=== PATIENT | male | born 1945 | race Caucasian/White ===

== ENCOUNTER → 2017-10-09 07:03 | Outpatient (CLI) | payer MEDICARE, OTHER, SELFPAY ==
[2017-10-09 07:52] LABS: AST(SGOT) 33 U/L (15-37); Alanine Aminotransfer ALT/SGPT 31 U/L (16-61); Albumin, Serum 3.6 g/dL (3.2-5.0); Alkaline Phosphatase 87 U/L (45-117); Bilirubin, Direct 0.19 mg/dL (0.00-0.30); Cholesterol 111 mg/dL (200); Globulin 3.6 g/dL (2.2-4.2); High Density Lipoprotein 56 mg/dL; Protein, Total 7.2 g/dL (6.4-8.2); Triglycerides 58 mg/dL; Very Low Density Lipoprotein 12 mg/dL (5-40)
== END ==
PROVIDERS: Nurse Practitioner Family; Family Provider Internal Medicine; PCP Internal Medicine; Visit Provider Internal Medicine Cardiovascular Disease
DX: E78.5 Hyperlipidemia, unspecified (principal); Z79.899 Other long term (current) drug therapy
CPT/HCPCS: 36415; 80061; 80076

== ENCOUNTER → 2017-10-12 10:50 | Outpatient (CLI) | payer MEDICARE, OTHER, SELFPAY ==
[2017-10-12 10:55] LABS: Bacteria 0 SEEN /hpf (None Seen); Mucous, Urine 0 SEEN /hpf (<or=2+); Red Blood Cells-Urine 0 SEEN /hpf (0-5); Squamous Epithelial Cells - UA 0 SEEN /hpf (0-5)
[2017-10-12 12:57] LABS: Absolute Lymphocyte Count 1.12 X10^3/ul (0.83-4.51); Absolute Neutrophil Count 2.7 X10^3/uL (2.0-7.7); Basophil# 0.02 X10^3/uL; Basophil% 0.4 % (0-1); Eosinophil# 0.12 X10^3/uL; Eosinophils% 2.7 % (0-5); Hematocrit 41.4 % (40-54); Hemoglobin 13.8 g/dl (13.0-16.5); Lymphocyte # 1.12 X10^3/ul (4.0); Lymphocyte % 25.1 % (19-41); Mean Corp Hgb Conc 33.3 g/gl (32-36); Mean Corpuscular Hgb 32.4 pg (27.0-32.0); Mean Corpuscular Volume 97.2 fL (80-94); Mean Platelet Vol. 11.2 fl (6.2-12.0); Monocyte# 0.51 X10^3/uL; Monocyte% 11.4 % (0-10); Neutrophil # 2.69 X10^3/uL (2.7-7.7); Neutrophil % 60.4 % (47-70); Platelet Count 183 K/mm3 (150-450); RBC Distribution Width CV 13.2 % (11.6-14.6); RBC Distribution Width SD 46.4 fl (35.1-43.9); Red Blood Count 4.26 M/mm3 (4.6-6.2); White Blood Count 4.5 K/mm3 (4.4-11.0)
[2017-10-12 13:00] LABS: Anion Gap 7 (5-15); BUN 23 mg/dL (7-18); BUN/Creat Ratio 20.5 RATIO (10-20); Calcium,Total 8.6 mg/dL (8.5-10.1); Chloride 106 mmol/L (98-107); Creatinine, Serum 1.12 mg/dL (0.70-1.30); EST Glomerular Filtration Rate 68 mL/min (>60); Est Glom Filt Rate - Afr Amer 83 mL/min (>60); Glucose 88 mg/dL (74-106); Magnesium 2.2 mg/dL (1.6-2.6); Sodium Level 141 mmol/L (136-145); T4 Free Direct 0.77 ng/dL (0.76-1.46)
[2017-10-12 13:02] LABS: POSITIVE COUNT NO; POSITIVE DIFFERENTIAL NO; POSITIVE MORPHOLOGY NO
[2017-10-12 14:36] LABS: Color, Urine Yellow (Yellow); Glucose, Dipstick Normal (Normal); Ketone-Dipstick Negative (Negative); Leukocyte Esterase-Dipstick 25 /ul (Negative); Nitrite-Dipstick Negative (Negative); Occult Blood-Urine Negative /ul (Negative); Protein-Dipstick Negative (Negative); Urine Bilirubin Dipstick Negative (Negative); Urine Clarity Clear (Clear); Urine Urobilinogen Normal (Normal)
[2017-10-12 15:00] LABS: White Blood Cells 0-5 SEEN /hpf (0-5)
[2017-10-12 18:09] LABS: Vitamin B12 977 pg/mL (211-911)
[2017-10-16 10:22] LABS: Anti-Thyroglobulin AB < 1.0 IU/mL (0.0-0.9); Thyroglobulin, Serum Qt. 11.5 ng/mL (1.4-29.2); Thyroid Peroxidase AB 11 IU/mL (0-34)
== END ==
PROVIDERS: Family Provider Family Medicine; PCP Family Medicine; Visit Provider Family Medicine
DX: D75.89 Other specified diseases of blood and blood-forming organs (principal); I25.10 Atherosclerotic heart disease of native coronary artery without angina pectoris; E03.9 Hypothyroidism, unspecified; I10 Essential (primary) hypertension
CPT/HCPCS: 36415; 80048; 81001; 82607; 82746; 83735; 84432; 84439; 84443; 85025; 86376; 86800

== ENCOUNTER → 2017-10-18 12:53 | Outpatient (CLI) | payer MEDICARE, OTHER, SELFPAY ==
--- NOTE | 2017-10-18 12:56 | US_ITS ---
STUDY: ULTRASOUND - URINARY BLADDER REASON FOR EXAM: Male, 72 years old. Urinary retention TECHNIQUE: Ultrasound evaluation of the urinary bladder was performed with real-time and static marrero-scale imaging. COMPARISON: None. FINDINGS: There is no right UVJ calculus. There is a visualized right ureteral jet. There is no left UVJ calculus. There is a non-visualization of a left ureteral jet. The distended volume of the urinary bladder is 194 ml. The empty volume of the urinary bladder is 86 ml. The bladder wall is within normal limits. The bladder wall measures 3 mm. There is no demonstrated bladder wall mass lesion. There are no demonstrated bladder calculi. US/Post Void Residual Bladder IMPRESSION: Post void residue in the right bladder measures 86 ml. Electronically Signed: Rossi Rizzo MD at 14:30 EDT Tel , Service support ,
--- NOTE | 2017-10-18 12:56 | US_ITS ---
STUDY: THYROID ULTRASOUND REASON FOR EXAM: Male, 72 years old. Thyroid nodules TECHNIQUE: Ultrasound evaluation of the thyroid was performed with real-time and static marrero-scale imaging. COMPARISON: None. FINDINGS: RIGHT LOBE: The right lobe of the thyroid gland measures 4.1 x 1.6 x 1.5 cm. There is a homogeneous echotexture. There are 3 nodules measuring respectively: Nodule #1 measures 1 x 0.8 x 2.8 cm. ACR T-IRADS category 2, not suspicious for malignancy. Nodule #2 measures 0.4 x 0.5 and 0.5 cm. ACR T-IRADS category 1 benign. Nodule #3 measures 0.4 x 0.6 x 0.5 cm. Taller than wide nodule, ACR T-IRADS category 4 , moderately suspicious for malignancy. LEFT LOBE: The left lobe of the thyroid gland measures 3 x 1 x 0.8 cm. There is a homogeneous echotexture. 4 nodules are seen in the left thyroid lobe measuring respectively: Nodule #1 measures 3 x 3 x 3 mm. ACR T-IRADS category 3 , mildly suspicious for malignancy. Nodule #2 measures 3 x 4 x 4 mm. ACR T-IRADS category 3 , mildly suspicious for malignancy. Nodular #3 measures 4 x 3 x 3 mm. ACR T-IRADS category 3 , mildly suspicious for malignancy. Nodule #4 measures 5 x 5 x 3 mm. ACR T-IRADS category 3 , mildly suspicious for malignancy. Nodule #5 measures 2 x 3 x 2 mm. ACR T-IRADS category 3 , mildly suspicious for malignancy. ISTHMUS: The isthmus measures . The regional lymph nodes are normal. US/Thyroid IMPRESSION: Left thyroid lobe Nodule #3 measures 0.4 x 0.6 x 0.5 cm. Taller than wide nodule, ACR T-IRADS category 4 , moderately suspicious for malignancy. Electronically Signed: Rossi Rizzo MD at 13:54 EDT Tel , Service support ,
== END ==
PROVIDERS: Family Provider Family Medicine; PCP Family Medicine; Visit Provider Family Medicine
DX: E04.2 Nontoxic multinodular goiter (principal); R33.9 Retention of urine, unspecified
CPT/HCPCS: 51798; 76536

== ENCOUNTER → 2017-11-15 11:12 | Outpatient (CLI) | payer MEDICARE, OTHER, SELFPAY ==
--- NOTE | 2017-11-15 | FLU_PTH ---
PATIENT: MESSI VILLA LOC: [facility] U#:[id number] AGE/SX: 80/M ROOM: RE11/15/[address]: Dr. Trino Mclean MD : 1945 BED: DIS: SPEC #: [id number] RECD: 11/15/17 13:21 STATUS: ALBERTO SARAH #: [id number] EMPERATRIZ: 11/15/17 00:[address]: Trino Mclean DEPT: CYTOLOGY RECD BY: Pratik Chin ENTERED: 11/15/17 13:22 SP TYPE: Fluid OTHR DR: Dr. Rigoberto Elise MD Tissues: A - Thyroid gland, NOS B - Thyroid gland, NOS Procedures: Special Stain Group II Surgery Specimen Level IV Cytospin Fluid HEADER OPERATION: Right thyroid FNA PRE-OP DIAGNOSIS: Right thyroid nodule TISSUE SUBMITTED: A ? Right thyroid fluid for cytology, B ? Right thyroid slides ? mid (8 slides) DIAGNOSIS CYTOLOGY A. Fine needle aspiration, right thyroid nodule (cytospin and cell block): Negative for malignant cells. B. Fine needle aspiration, right thyroid nodule (smears): Adequate for evaluation. Consistent with benign follicular nodule. AM:mariia 11/16/17 COMMENT A. The specimen contains rare follicular cells and macrophages. CYTOLOGY STUDY Slides are reviewed. CYTOLOGY GROSS A - Received is <0.5 ml of yellow cloudy fluid labeled with the patient's name and and designated per the requisition as right thyroid. Submitted for cytology preparation including cell block. B - Received are eight smears labeled with the patient's name and designated per the requisition as right thyroid mid. Submitted for staining. 11/15/17 TC:5 CPT: 95433, 27047, 41667
== END ==
PROVIDERS: Family Provider Family Medicine; PCP Family Medicine; Visit Provider Surgery
DX: E04.1 Nontoxic single thyroid nodule (principal)
CPT/HCPCS: 88108; 88305; 88313

== ENCOUNTER → 2018-02-27 07:29 | Outpatient (CLI) | payer MEDICARE, OTHER, SELFPAY ==
[2018-02-27 08:10] LABS: Absolute Lymphocyte Count 1.38 X10^3/ul (0.83-4.51); Absolute Neutrophil Count 2.2 X10^3/uL (2.0-7.7); Basophil# 0.02 X10^3/uL; Basophil% 0.4 % (0-1); Eosinophil# 0.27 X10^3/uL; Eosinophils% 5.9 % (0-5); Hematocrit 39.7 % (40-54); Hemoglobin 13.8 g/dl (13.0-16.5); Lymphocyte # 1.38 X10^3/ul (4.0); Lymphocyte % 30.3 % (19-41); Mean Corp Hgb Conc 34.8 g/gl (32-36); Mean Platelet Vol. 9.9 fl (6.2-12.0); Monocyte# 0.65 X10^3/uL; Monocyte% 14.3 % (0-10); Neutrophil # 2.22 X10^3/uL (2.7-7.7); Neutrophil % 48.9 % (47-70); Platelet Count 232 K/mm3 (150-450); RBC Distribution Width SD 43.7 fl (35.1-43.9); Red Blood Count 4.18 M/mm3 (4.6-6.2); White Blood Count 4.6 K/mm3 (4.4-11.0)
[2018-02-27 08:15] LABS: POSITIVE COUNT NO; POSITIVE DIFFERENTIAL NO; POSITIVE MORPHOLOGY NO
[2018-02-27 08:43] LABS: ALB/GLOB Ratio 0.9 RATIO (0.9-2.4); AST(SGOT) 26 U/L (15-37); Alanine Aminotransfer ALT/SGPT 27 U/L (16-61); Albumin, Serum 3.5 g/dL (3.2-5.0); Alkaline Phosphatase 85 U/L (45-117); Anion Gap 4 (5-15); BUN 24 mg/dL (7-18); BUN/Creat Ratio 19.2 RATIO (10-20); Calcium,Total 8.6 mg/dL (8.5-10.1); Chloride 106 mmol/L (98-107); Cholesterol 117 mg/dL (200); Creatinine, Serum 1.25 mg/dL (0.70-1.30); EST Glomerular Filtration Rate 60 mL/min (>60); Est Glom Filt Rate - Afr Amer 73 mL/min (>60); Globulin 3.9 g/dL (2.2-4.2); Glucose 87 mg/dL (74-106); High Density Lipoprotein 53 mg/dL; Potassium 4.1 mmol/L (3.5-5.1); Protein, Total 7.4 g/dL (6.4-8.2); Sodium Level 140 mmol/L (136-145); T4 Free Direct 0.88 ng/dL (0.76-1.46); Thyroid Stim Hormone (TSH) 6.37 uIU/mL (0.358-3.74); Triglycerides 73 mg/dL; Very Low Density Lipoprotein 15 mg/dL (5-40)
== END ==
PROVIDERS: Family Provider Family Medicine; PCP Family Medicine; Visit Provider Family Medicine
DX: I10 Essential (primary) hypertension (principal); E78.5 Hyperlipidemia, unspecified; E04.2 Nontoxic multinodular goiter
CPT/HCPCS: 36415; 80053; 80061; 84439; 84443; 85025

== ENCOUNTER → 2018-04-03 12:14 | Outpatient (CLI) | payer MEDICARE, OTHER, SELFPAY ==
--- NOTE | 2018-04-03 13:00 | RAD_ITS ---
STUDY: SWALLOWING STUDY REASON FOR EXAM: Male, 72 years old. Aspiration. TECHNIQUE: The examination was performed with Speech Pathology in attendance. Under fluoroscopic observation, the patient ingested thin barium, thick barium, barium pudding, and barium coated cracker. FLUOROSCOPY TIME: 2:03 minutes/seconds. 1808 images were obtained. RADIOLOGIST INVOLVEMENT: Radiologist was present and providing direct supervision. COMPARISON: None. FINDINGS: The following was observed during swallowing of the various mixtures of barium: Thin Barium: There was no evidence of aspiration or laryngeal penetration. Barium Pudding: There was no evidence of aspiration or laryngeal penetration. Barium Coated Cracker: There was no evidence of aspiration or laryngeal penetration. RAD/Swallowing Function w/Video IMPRESSION: Normal tailored barium swallow study. No evidence of increased risk for aspiration. The swallow study findings were discussed with the patient by the speech pathologist at the conclusion of the examination. Please see speech pathology report for more information and recommendations. Electronically Signed: Eric Callahan MD at 14:48 EDT Tel [phone], Service support ,
--- NOTE | 2018-04-03 13:00 | SP.MBSS_ITS ---
PRIMARY / SECONDARY DIAGNOSIS: dysphagia (R13.10) REFERRING PHYSICIAN: Dr. Rigoberto Pham MD CURRENT DIET: regular textures, thin liquids DENTITION: WFL MENTAL STATUS: WNL RESPIRATORY STATUS: O2 via room air PREVIOUS MODIFIED BARIUM SWALLOW STUDY: none REASON FOR REFERRAL: Patient is a 72 year old male referred for a modified barium swallow (MBS) study to objectively assess the Patients oropharyngeal swallow function under fluoroscopy secondary to intermittent coughing, occurring occasionally with mixed textures and with saliva; unable to fully quantify, as the Patient reports that this does not necessarily happen on a daily or weekly basis, has not change in regards to intensity or frequency, rather has occasionally presented over the last 3-4 years. Patient underwent a ultrasound-guided final aspiration right thyroid nodule (x2) on 10/30/2017 and 11/15/2017, though reports no associated changes in swallow function associated with thyroid nodules or associated medical interventions. ADDITIONAL OBJECTIVE ASSESSMENT RESULTS: 10/19/2017 thyroid ultrasound revealed left thyroid lobe Nodule #3 measures 0.4 x 0.6 x 0.5 cm., taller than wide nodule, ACR T-IRADS category 4 , moderately suspicious for malignancy. 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 Dr. Callahan was the radiologist present for this evaluation. This study was recorded in the lateral view and images were sent to PACs for storage. The following consistencies were presented to this patient for analysis of oropharyngeal swallow function: thin liquids, pudding, and a regular textured, Mayi Doone cookie. Results of the MBS are as follows: PENETRATION / ASPIRATION SCALE (REDDING): 1 = does not enter airway 2 = enters airway/above vocal folds/ejected 3 = enters airway/above vocal folds/not ejected 4 = enters airway/contacts vocal folds/ejected 5 = enters airway/contacts vocal folds/not ejected 6 = enters airway/below vocal folds/ejected 7 = enters airway/below vocal folds/not ejected despite effort 8 = enters airway/below vocal folds/no effort VIDEOFLOROSCOPIC SCALE SCORE (REDDING): Grade I = aspiration of material that has penetrated into the laryngeal vestibule, intact cough reflex Grade II = aspiration < 10 % of the bolus, intact cough reflex Grade III = aspiration of < 10 % of the bolus, reduced cough reflex or aspiration of > 10 % of the bolus, intact cough reflex Grade IV = aspiration of > 10 % of the bolus, reduced cough reflex PENETRATION / ASPIRATION SCALE (SCORE) WITH VIDEOFLOROSCOPIC SCALE SCORE: Thin liquid - 5 mL tsp.: 1 Thin liquids via cup (single sip): 2 Thin liquids via cup (single sip): 2 Thin liquids via cup (single sip): 2 Thin liquids via cup (sequential swallows): 2 Thin liquids via straw (sequential swallows): 2 Thin liquids via straw (chin tuck): 1 Thin liquids via straw (chin tuck): 1 Thin liquids via straw (anterior lean): 2 Pudding via spoon: 1 Regular textured cookie: 1 Thin liquids via straw (chin tuck): 1 IMPRESSION: DIAGNOSIS: mild oropharyngeal dysphagia (R13.12) ORAL PHASE CHARACTERIZED BY: LABIAL SEAL: no labial escape TONGUE CONTROL DURING BOLUS MANIPULATION: cohesive bolus between tongue to palatal seal BOLUS PREPARATION / MASTICATION: timely and efficient chewing and mashing BOLUS TRANSPORT / LINGUAL MOTION: brisk tongue motion ORAL RESIDUE: trace residue lining oral structures PHARYNGEAL PHASE CHARACTERIZED BY: INITIATION OF PHARYNGEAL SWALLOW: bolus head at posterior laryngeal surface of epiglottis at first hyoid excursion SOFT PALATE ELEVATION: no bolus between soft palate and pharyngeal wall LARYNGEAL ELEVATION: complete superior movement of thyroid cartilage with complete approximation of arytenoids cartilage to epiglottic petiole ANTERIOR HYOID EXCURSION: partial anterior movement EPIGLOTTIC MOVEMENT: complete epiglottic inversion LARYNGEAL VESTIBULE CLOSURE AT HEIGHT OF SWALLOW: complete laryngeal vestibule closure with no air/contrast in laryngeal vestibule PHARYNGEAL STRIPPING WAVE: pharyngeal stripping wave present / complete PHARYNGOESOPHAGEAL SEGMENT OPENING: complete distension and complete duration with no obstruction of flow TONGUE BASE RETRACTION: trace column of contrast between tongue base and posterior pharyngeal wall PHARYNGEAL RESIDUE: trace residue within or on pharyngeal structures ESOPHAGEAL PHASE CHARACTERIZED BY: ESOPHAGEAL BOLUS CLEARANCE IN THE UPRIGHT POSITION: transient esophageal retention of a small collection of barium located at C-6 C-7; little to no clinical significance; clears with liquid chaser EFFECTS OF TREATMENT STRATEGIES ATTEMPTED: Chin tuck posture = effective Anterior lean = ineffective DIET TEXTURE RECOMMENDATIONS: Will recommend a regular textured, thin liquid diet. 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 Oropharyngeal swallow profile marked by mild impairment in pharyngeal swallow onset timing resulting in suboptimal bolus location upon swallow onset combining with a mild reduction in anterior hyoid excursion, with resulting consistent prandial transient penetration with complete ejection of thin liquids. All deficits ameliorated with execution of the chin tuck posture and bolus volume adjustments. Smaller cervical osteophyte located at the C-6 and C-7 levels, little to no effect on pharyngoesophageal motility, with brief and mild amounts of retention noted under fluoroscopy cleared with liquid wash. No aspiration appreciated throughout trials, unable to definitively rule out silent aspiration (not suspected). RECOMMENDATIONS: Patient able to comprehend and express recommended intake precautions detailed above with sufficient detail to suggest high likelihood of compliance. Provided brief overview of signs and symptoms of aspiration, with recommendations for the Patient to further discuss symptoms with PCP. No further skilled speech- language services warranted at this time targeting dysphagia. ADDITIONAL COMMENTS/RECOMMENDATIONS: Results and recommendations were discussed with the Patient immediately following MBS completion, with the Patient verbalizing understanding and agreement with all recommendations and education provided. IMAGE COUNT: [id number] G-CODES: SWALLOWING G8996 Current Status: CI SWALLOWING G8997 Goal Status: CI SWALLOWING G8998 Discharge Status: CI Vaibhav Cooper M.A., CCC-PILLAR WORKER [facility] Speech-Language Pathology Department [email or web address]
== END ==
PROVIDERS: Family Provider Family Medicine; PCP Family Medicine; Visit Provider Family Medicine
DX: T17.998A Other foreign object in respiratory tract, part unspecified causing other injury, initial encounter (principal); R33.9 Retention of urine, unspecified
CPT/HCPCS: 51798; 74230; 92611; G8996; G8997; G8998

== ENCOUNTER → 2018-08-28 07:18 | Outpatient (CLI) | payer MEDICARE, OTHER, SELFPAY ==
[2017-10-30 15:27] VITALS: BMI 26.9
[2018-08-28 08:11] LABS: Absolute Lymphocyte Count 1.42 X10^3/ul (0.83-4.51); Absolute Neutrophil Count 3.7 X10^3/uL (2.0-7.7); Basophil# 0.02 X10^3/uL; Basophil% 0.3 % (0-1); Eosinophil# 0.22 X10^3/uL; Eosinophils% 3.8 % (0-5); Hematocrit 41.7 % (40-54); Hemoglobin 13.9 g/dl (13.0-16.5); Lymphocyte # 1.42 X10^3/ul (4.0); Lymphocyte % 24.2 % (19-41); Mean Corp Hgb Conc 33.3 g/gl (32-36); Mean Corpuscular Hgb 32.3 pg (27.0-32.0); Mean Corpuscular Volume 96.8 fL (80-94); Mean Platelet Vol. 10.2 fl (6.2-12.0); Monocyte# 0.47 X10^3/uL; Neutrophil # 3.73 X10^3/uL (2.7-7.7); Neutrophil % 63.7 % (47-70); Platelet Count 203 K/mm3 (150-450); RBC Distribution Width SD 45.6 fl (35.1-43.9); Red Blood Count 4.31 M/mm3 (4.6-6.2); White Blood Count 5.9 K/mm3 (4.4-11.0)
[2018-08-28 08:13] LABS: POSITIVE COUNT NO; POSITIVE DIFFERENTIAL NO; POSITIVE MORPHOLOGY NO
[2018-08-28 08:32] LABS: ALB/GLOB Ratio 0.9 RATIO (0.9-2.4); AST(SGOT) 22 U/L (15-37); Alanine Aminotransfer ALT/SGPT 25 U/L (16-61); Albumin, Serum 3.5 g/dL (3.2-5.0); Alkaline Phosphatase 92 U/L (45-117); Anion Gap 4 (5-15); BUN 22 mg/dL (7-18); BUN/Creat Ratio 18.5 RATIO (10-20); Calcium,Total 8.3 mg/dL (8.5-10.1); Chloride 107 mmol/L (98-107); Cholesterol 124 mg/dL (200); Creatinine, Serum 1.19 mg/dL (0.70-1.30); EST Glomerular Filtration Rate 64 mL/min (>60); Est Glom Filt Rate - Afr Amer 77 mL/min (>60); Globulin 3.9 g/dL (2.2-4.2); Glucose 91 mg/dL (74-106); High Density Lipoprotein 52 mg/dL; Potassium 4.1 mmol/L (3.5-5.1); Protein, Total 7.4 g/dL (6.4-8.2); Sodium Level 140 mmol/L (136-145); Triglycerides 73 mg/dL; Very Low Density Lipoprotein 15 mg/dL (5-40)
== END ==
PROVIDERS: Family Provider Family Medicine; PCP Family Medicine; Referring Provider Family Medicine; Visit Provider Family Medicine
DX: I10 Essential (primary) hypertension (principal); E78.5 Hyperlipidemia, unspecified; E03.9 Hypothyroidism, unspecified
CPT/HCPCS: 36415; 80053; 80061; 84439; 84443; 85025

== ENCOUNTER → 2019-01-21 14:34 | Outpatient (CLI) | payer MEDICARE, OTHER, SELFPAY ==
[2019-01-21 07:17] VITALS: BMI 27.6
[2019-01-21 14:46] LABS: Bacteria 0 SEEN /hpf (None Seen); Mucous, Urine 0 SEEN /hpf (<or=2+); Squamous Epithelial Cells - UA 0 SEEN /hpf (0-5)
[2019-01-21 15:05] LABS: Color, Urine Yellow (Yellow); Glucose, Dipstick Normal (Normal); Ketone-Dipstick Negative (Negative); Leukocyte Esterase-Dipstick 100 /ul (Negative); Nitrite-Dipstick Negative (Negative); Occult Blood-Urine 10 /ul (Negative); Protein-Dipstick Negative (Negative); Specific Gravity, Urine 1.015 (1.002-1.030); Urine Bilirubin Dipstick Negative (Negative); Urine Clarity Clear (Clear); Urine Urobilinogen Normal (Normal)
[2019-01-21 15:14] LABS: Red Blood Cells-Urine 0-5 SEEN /hpf (0-5); White Blood Cells 10-25 SEEN /hpf (0-5)
== END ==
PROVIDERS: Family Provider Family Medicine; PCP Family Medicine; Referring Provider Physician Assistant Surgical; Visit Provider Physician Assistant Surgical
DX: R30.0 Dysuria (principal)
CPT/HCPCS: 81001; 87086; 87088

== ENCOUNTER → 2019-01-31 06:26 | Outpatient (CLI) | payer MEDICARE, OTHER, SELFPAY ==
[2019-01-21 07:17] VITALS: BMI 27.6
[2019-01-31 07:41] LABS: Absolute Lymphocyte Count 1.52 X10^3/ul (0.83-4.51); Absolute Neutrophil Count 3.3 X10^3/uL (2.0-7.7); Basophil# 0.03 X10^3/uL; Basophil% 0.5 % (0-1); Eosinophil# 0.36 X10^3/uL; Eosinophils% 6.3 % (0-5); Hematocrit 41.5 % (40-54); Hemoglobin 14.2 g/dl (13.0-16.5); Lymphocyte # 1.52 X10^3/ul (4.0); Lymphocyte % 26.7 % (19-41); Mean Corp Hgb Conc 34.2 g/gl (32-36); Mean Corpuscular Hgb 31.8 pg (27.0-32.0); Monocyte% 8.8 % (0-10); Neutrophil # 3.27 X10^3/uL (2.7-7.7); Neutrophil % 57.5 % (47-70); Platelet Count 290 K/mm3 (150-450); RBC Distribution Width CV 12.8 % (11.6-14.6); RBC Distribution Width SD 42.5 fl (35.1-43.9); Red Blood Count 4.46 M/mm3 (4.6-6.2); White Blood Count 5.7 K/mm3 (4.4-11.0)
[2019-01-31 07:44] LABS: POSITIVE COUNT NO; POSITIVE DIFFERENTIAL NO; POSITIVE MORPHOLOGY NO
[2019-01-31 08:12] LABS: ALB/GLOB Ratio 0.8 RATIO (0.9-2.4); AST(SGOT) 30 U/L (15-37); Alanine Aminotransfer ALT/SGPT 38 U/L (16-61); Albumin, Serum 3.2 g/dL (3.2-5.0); Alkaline Phosphatase 80 U/L (45-117); Anion Gap 8 (5-15); BUN 29 mg/dL (7-18); BUN/Creat Ratio 24.4 RATIO (10-20); Calcium,Total 8.7 mg/dL (8.5-10.1); Chloride 106 mmol/L (98-107); Cholesterol 115 mg/dL (200); Creatinine, Serum 1.19 mg/dL (0.70-1.30); EST Glomerular Filtration Rate 64 mL/min (>60); Est Glom Filt Rate - Afr Amer 77 mL/min (>60); Globulin 4.1 g/dL (2.2-4.2); Glucose 96 mg/dL (74-106); High Density Lipoprotein 47 mg/dL; Protein, Total 7.3 g/dL (6.4-8.2); Sodium Level 141 mmol/L (136-145); T4 Free Direct 1.02 ng/dL (0.76-1.46); Thyroid Stim Hormone (TSH) 3.76 uIU/mL (0.358-3.74); Triglycerides 70 mg/dL; Very Low Density Lipoprotein 14 mg/dL (5-40)
[2019-02-05 17:56] LABS: Anti-Thyroglobulin AB < 1.0 IU/mL (0.0-0.9); Thyroglobulin, Serum Qt. 7.1 ng/mL (1.4-29.2)
== END ==
PROVIDERS: Family Provider Family Medicine; PCP Family Medicine; Referring Provider Family Medicine; Visit Provider Family Medicine
DX: E03.9 Hypothyroidism, unspecified (principal); E78.5 Hyperlipidemia, unspecified; I10 Essential (primary) hypertension
CPT/HCPCS: 36415; 80053; 80061; 84432; 84439; 84443; 85025; 86800

== ENCOUNTER → 2019-04-26 09:38 | Outpatient (CLI) | payer MEDICARE, OTHER, SELFPAY ==
[2019-01-21 07:17] VITALS: BMI 27.6
--- NOTE | 2019-04-26 09:46 | RAD_ITS ---
STUDY: X-RAY CHEST REASON FOR EXAM: Male, 74 years old. Acute bronchitis. TECHNIQUE: PA and lateral views of the chest. COMPARISON: None. FINDINGS: The lungs are clear and expanded. There is no demonstrated pleural abnormality. Normal size heart. Normal mediastinum and kimani. Normal visualized pulmonary arteries. Normal visualized aortic arch and descending thoracic aorta. There are diffuse degenerative changes of the visualized thoracic spine. Normal visualized ribs, clavicles, and shoulders. There is no demonstrated abnormality of the visualized soft tissue structures of the upper abdomen. RAD/Chest PA and Lateral IMPRESSION: Degenerative changes, as described above. No demonstrated acute cardiopulmonary process. Electronically Signed: Andrea Forbes DO at 10:28 EDT Tel [phone], Service support ,
== END ==
PROVIDERS: Family Provider Family Medicine; PCP Family Medicine; Referring Provider Family Medicine; Visit Provider Family Medicine
DX: J20.9 Acute bronchitis, unspecified (principal)
CPT/HCPCS: 71046

== ENCOUNTER → 2019-05-08 10:50 | Outpatient (CLI) | payer MEDICARE, OTHER, SELFPAY ==
[2019-01-21 07:17] VITALS: BMI 27.6
[2019-05-08 12:50] LABS: PSA,Total - Annual Screen 1.67 ng/mL (0.00-4.00)
== END ==
PROVIDERS: Family Provider Family Medicine; PCP Family Medicine; Referring Provider Family Medicine; Visit Provider Family Medicine
DX: Z12.5 Encounter for screening for malignant neoplasm of prostate (principal)
CPT/HCPCS: 36415; 84153; G0103

== ENCOUNTER → 2019-08-04 07:05 | Outpatient (CLI) | payer MEDICARE, OTHER, SELFPAY ==
[2019-01-21 07:17] VITALS: BMI 27.6
[2019-08-04 07:44] LABS: Absolute Lymphocyte Count 1.53 X10^3/uL (0.83-4.51); Absolute Neutrophil Count 2.6 X10^3/uL (2.0-7.7); Basophil# 0.04 X10^3/uL; Basophil% 0.8 % (0-1); Eosinophil# 0.36 X10^3/uL; Eosinophils% 7.1 % (0-5); Hematocrit 42.5 % (40-54); Hemoglobin 14.6 g/dL (13.0-16.5); Lymphocyte # 1.53 X10^3/ul (4.0); Lymphocyte % 30.1 % (19-41); Mean Corp Hgb Conc 34.4 g/dL (32-36); Mean Corpuscular Hgb 32.5 pg (27.0-32.0); Mean Corpuscular Volume 94.7 fL (80-94); Mean Platelet Vol. 10.5 fl (6.2-12.0); Monocyte# 0.54 X10^3/uL; Monocyte% 10.6 % (0-10); NRBC Flagged by Analyzer 0 % (0-5); Neutrophil % 51.2 % (47-70); Platelet Count 205 K/mm3 (150-450); RBC Distribution Width CV 12.7 % (11.6-14.6); RBC Distribution Width SD 44.2 fl (35.1-43.9); Red Blood Count 4.49 M/mm3 (4.6-6.2); White Blood Count 5.1 K/mm3 (4.4-11.0)
[2019-08-04 08:07] LABS: AST(SGOT) 27 U/L (15-37); Alanine Aminotransfer ALT/SGPT 27 U/L (16-61); Albumin, Serum 3.6 g/dL (3.2-5.0); Alkaline Phosphatase 93 U/L (45-117); Anion Gap 4 (5-15); BUN 21 mg/dL (7-18); BUN/Creat Ratio 16.4 RATIO (10-20); Calcium,Total 8.7 mg/dL (8.5-10.1); Chloride 106 mmol/L (98-107); Cholesterol 131 mg/dL (200); Creatinine, Serum 1.28 mg/dL (0.70-1.30); EST Glomerular Filtration Rate 58 mL/min (>60); Est Glom Filt Rate - Afr Amer 71 mL/min (>60); Globulin 3.7 g/dL (2.2-4.2); Glucose 87 mg/dL (74-106); High Density Lipoprotein 60 mg/dL; Potassium 3.8 mmol/L (3.5-5.1); Protein, Total 7.3 g/dL (6.4-8.2); Sodium Level 139 mmol/L (136-145); T4 Free Direct 1.03 ng/dL (0.76-1.46); Thyroid Stim Hormone (TSH) 5.45 uIU/mL (0.358-3.74); Triglycerides 69 mg/dL; Very Low Density Lipoprotein 14 mg/dL (5-40)
[2019-08-06 11:41] LABS: Anti-Thyroglobulin AB < 1.0 IU/mL (0.0-0.9); Thyroglobulin, Serum Qt. 9.9 ng/mL (1.4-29.2); Thyroid Peroxidase AB 11 IU/mL (0-34)
== END ==
PROVIDERS: Family Provider Family Medicine; PCP Family Medicine; Referring Provider Family Medicine; Visit Provider Family Medicine
DX: I10 Essential (primary) hypertension (principal); E03.9 Hypothyroidism, unspecified; E78.5 Hyperlipidemia, unspecified
CPT/HCPCS: 36415; 80053; 80061; 84432; 84439; 84443; 85025; 86376; 86800

== ENCOUNTER → 2019-08-25 09:16 | Outpatient (CLI) | payer MEDICARE, OTHER, SELFPAY ==
[2019-01-21 07:17] VITALS: BMI 27.6
--- NOTE | 2019-08-25 09:31 | US_ITS ---
STUDY: THYROID ULTRASOUND REASON FOR EXAM: Male, 74 years old. Follow-up nodules. History of FNA in 2018. TECHNIQUE: Ultrasound evaluation of the thyroid was performed with real-time and static marrero-scale imaging. COMPARISON: October 18, 2017. FINDINGS: RIGHT LOBE: The right lobe of the thyroid gland measures 4.1 x 1.5 x 1.6 cm. There is a heterogeneous echotexture. 0.6 x 0.6 x 0.3 cm cyst with internal debris in the lower pole. Also in the lower pole there is a mildly hypoechoic solid lesion measuring 4 mm in diameter. In the mid thyroid there is an isoechoic nodule with hypoechoic rim measuring 0.5 x 0.5 x 0.3 cm. LEFT LOBE: The left lobe of the thyroid gland measures 3.0 x 1.3 x 0.8 cm. There is a heterogeneous echotexture. There is a 0.3 x 0.2 x 0.3 cm cyst in the upper pole and mid thyroid there is a 0.4 x 0.3 x 0.4 cm isoechoic nodule with hypoechoic rim. Also in the lower pole is 0.5 x 0.6 x 0.3 cm isoechoic nodule with hypoechoic rim. The lower pole there is a 0.2 x 0.2 x 0.1 cm isoechoic nodule as well as a 0.3 x 0.3 x 0.2 cm isoechoic nodule ISTHMUS: The isthmus measures 0.2 cm. The regional lymph nodes are normal. US/Thyroid IMPRESSION: 1. Stable cyst with debris in the lower pole of the right thyroid. The cystic structure with nodule seen in the lower pole on the prior study is no longer seen. 2. Multiple small stable nodules in the left thyroid. 3. Nodules in the right thyroid. These would be characterized by ACR TIRADS criteria as TR 3, mildly suspicious lesions. Due to their small size follow-up is not required. Electronically Signed: Andrea Forbes DO at 22:47 EST Tel [phone], Service support ,
[2019-08-25 11:46] LABS: Anion Gap 3 (5-15); BUN 23 mg/dL (7-18); BUN/Creat Ratio 18.7 RATIO (10-20); Calcium,Total 9.1 mg/dL (8.5-10.1); Chloride 106 mmol/L (98-107); Creatinine, Serum 1.23 mg/dL (0.70-1.30); EST Glomerular Filtration Rate 61 mL/min (>60); Est Glom Filt Rate - Afr Amer 74 mL/min (>60); Glucose 106 mg/dL (74-106); Potassium 4.3 mmol/L (3.5-5.1); Sodium Level 141 mmol/L (136-145)
== END ==
PROVIDERS: Family Provider Family Medicine; PCP Family Medicine; Referring Provider Family Medicine; Visit Provider Family Medicine
DX: E04.2 Nontoxic multinodular goiter (principal); R94.4 Abnormal results of kidney function studies
CPT/HCPCS: 36415; 76536; 80048

== ENCOUNTER → 2019-12-01 12:27 | Outpatient (CLI) | payer MEDICARE, OTHER, SELFPAY ==
[2019-01-21 07:17] VITALS: BMI 27.6
--- NOTE | 2019-12-01 12:30 | RAD_ITS ---
STUDY: X-RAY - LUMBAR SPINE REASON FOR EXAM: Male, 74 years old. LBP W/ RADIATION TOWARD HIPS, HX SCIATICA TECHNIQUE: 2 view(s) of the lumbar spine were obtained. COMPARISON: None FINDINGS: Normal lumbar lordosis. There is no substantial scoliosis. There is a normal alignment of the vertebrae. Mild degree of anterior spondylosis at the L3-L4 and L4-L5 levels with disc space narrowing. Phleboliths are seen in the pelvis. Large amount of fecal material is seen in the colon. RAD/Lumbar Spine 2 or 3 Views IMPRESSION: Degenerative changes of the spine, as detailed above. Large amount of fecal material is seen in the colon. Electronically Signed: Eric Callahan, at 15:39 EDT , Service support ,
== END ==
PROVIDERS: PCP Family Medicine; Referring Provider Anesthesiology Pain Medicine; Visit Provider Anesthesiology Pain Medicine
DX: M54.9 Dorsalgia, unspecified (principal)
CPT/HCPCS: 72100

== ENCOUNTER → 2020-01-02 07:10 | Outpatient (CLI) | payer MEDICARE, OTHER, SELFPAY ==
[2019-01-21 07:17] VITALS: BMI 27.6
[2020-01-02 07:37] LABS: Absolute Lymphocyte Count 1.48 X10^3/uL (0.83-4.51); Absolute Neutrophil Count 3.1 X10^3/uL (2.0-7.7); Basophil# 0.04 X10^3/uL; Basophil% 0.7 % (0-1); Eosinophil# 0.19 X10^3/uL; Eosinophils% 3.5 % (0-5); Hematocrit 42.2 % (40-54); Hemoglobin 14.3 g/dL (13.0-16.5); Lymphocyte # 1.48 X10^3/ul (4.0); Lymphocyte % 27.6 % (19-41); Mean Corp Hgb Conc 33.9 g/dL (32-36); Mean Corpuscular Hgb 33.1 pg (27.0-32.0); Mean Corpuscular Volume 97.7 fL (80-94); Mean Platelet Vol. 10.5 fl (6.2-12.0); Monocyte# 0.55 X10^3/uL; Monocyte% 10.3 % (0-10); NRBC Flagged by Analyzer 0 % (0-5); Neutrophil # 3.08 X10^3/uL (2.7-7.7); Neutrophil % 57.5 % (47-70); Platelet Count 214 K/mm3 (150-450); RBC Distribution Width CV 12.8 % (11.6-14.6); RBC Distribution Width SD 45.9 fl (35.1-43.9); Red Blood Count 4.32 M/mm3 (4.6-6.2); White Blood Count 5.4 K/mm3 (4.4-11.0)
[2020-01-02 08:18] LABS: ALB/GLOB Ratio 0.9 RATIO (0.9-2.4); AST(SGOT) 28 U/L (15-37); Alanine Aminotransfer ALT/SGPT 28 U/L (16-61); Albumin, Serum 3.5 g/dL (3.2-5.0); Alkaline Phosphatase 87 U/L (45-117); Anion Gap 7 (5-15); BUN 25 mg/dL (7-18); BUN/Creat Ratio 22.9 RATIO (10-20); Chloride 104 mmol/L (98-107); Cholesterol 127 mg/dL (200); Creatinine, Serum 1.09 mg/dL (0.70-1.30); EST Glomerular Filtration Rate 70 mL/min (>60); Est Glom Filt Rate - Afr Amer 85 mL/min (>60); Globulin 3.9 g/dL (2.2-4.2); Glucose 95 mg/dL (74-106); High Density Lipoprotein 53 mg/dL; Potassium 3.7 mmol/L (3.5-5.1); Protein, Total 7.4 g/dL (6.4-8.2); Sodium Level 140 mmol/L (136-145); T4 Free Direct 0.97 ng/dL (0.76-1.46); Thyroid Stim Hormone (TSH) 4.23 uIU/mL (0.358-3.74); Triglycerides 72 mg/dL; Very Low Density Lipoprotein 14 mg/dL (5-40)
== END ==
PROVIDERS: PCP Family Medicine; Referring Provider Family Medicine; Visit Provider Family Medicine
DX: I10 Essential (primary) hypertension (principal); E78.5 Hyperlipidemia, unspecified; E03.9 Hypothyroidism, unspecified
CPT/HCPCS: 36415; 80053; 80061; 84439; 84443; 85025

== ENCOUNTER 2020-01-09 08:30 | Outpatient (RCR) | payer MEDICARE, OTHER, SELFPAY ==
[2019-01-21 07:17] VITALS: BMI 27.6
--- NOTE | 2019-12-04 11:41 | HP.PTEVAL_ITS ---
Patient's Visit Information MESSI VILLA is a 74 year old M referred to Physical Therapy by Dr. Mariposa Aquino MD with a diagnosis of BACK PAIN. Date of Evaluation: 12/04/19 Physical Therapist: Zulema Clinton PT, Cert MDT - Visit Plan Frequency: 2-3x /Week Duration: 4-6 Weeks Plan: LUMBAR US, POSTURE CORRECTION/STRENGTHENING, INSTRUCTION IN APPROPRIATE BODY MECHANICS AND ACTIVITY MODIFICATIONS. DLS STARTING WITH A NEUTRAL SPINE PROGRESSING ROM TOLERATED. YUN LE ROM, STRETCHING AND STRENGTHENING. HEP INSTRUCTION. REVIEW OF CURRENT GYM PROGRAM WITH CHANGES INDICATED. PATIENT AGREEABLE TO THIS POC. 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 ALSO HIKES. STATES THAT HE AND HIS ARE ACTIVE. Disability: NO. Present symptoms: LOW BACK PAIN THAT RADIATES ACROSS HIPS INTO YUN HIPS - SOMETIMES ONE HIP MORE THAN THE OTHER. PATIENT DENIES YUN LE NUMBNESS AND TINGLING CURRENTLY. Present since: STARTED ABOUT 5 WEEKS AGO SUDDENLY. Pain Scale: WORST 7/10 (INTERMITTENT AND FLEETING) USUALLY 4/10, LEAST 2/10. Currently: 2/10 - SOME PROGRESS TOWARD GETTING BETTER. Commenced as a result of: NO APPARENT REASON - JUST GETTING UP OUT OF A CHAIR. Symptoms at onset: LOW BACK. Worse: RISING FROM SITTING, PROLONGED STANDING, BENDING, LIFTING (TAKING DIRTY CLOTHES DOWN THE STEPS), TWISTING, GETTING IN AND OUT OF CIVIC. Better: HEATING PAD - TEMPORARY ONLY. Disturbed sleep: NO. Previous history/Previous treatment: H/O SCIATICA A LONG TIME AGO WITH HEAVY LIFTING AT WORK. SOME LOW BACK PAIN ISSUES OVER THE PAST 20 YEARS. ABOUT 10 YEARS AGO PRETTY SEVERE BACK PAIN IN [place] FOR NO APPARENT REASON. [facility] COMING ABOUT 2 TIMES A WEEK FOR ABOUT 10 YEARS THAT PATIENT FEELS WAS HELPFUL BUT GYM HAS BEEN CLOSED. NO BACK SURGERY. NO HIP SURGERY. NO CINDY'S BUT DR. AQUINO HAS RECOMMENDED INJECTIONS AND PATIENT IS RELUCTANT BUT CONSIDERING. WEI'T FOR CINDY PENDING WITH DR. AQUINO IN ABOUT 2 WEEKS. Treatment this episode: PRIMARY CARE PHYSICIAN X 2 VISITS. TRIED MUSCLE RELAXERS BUT DID NOT SEEM TO HELP. HAS BEEN TAKING TYLONOL - DOESN'T TOUCH IT. HAS A PRESCRIPTION FOR A NARCOTIC FROM DR. AQUINO BUT PHARMACIST CAUTIONED HIM AND HE DID NOT FILL IT. HEART DOCTOR RECOMMENDED CELEBREX AND HE IS GOING TO TALK WITH DR. AQUINO ABOUT IT. Coughing/sneezing/straining: NEGATIVE. Gait: STATES THE PAIN IS EFFECTING HOW HE WALKS. Difficulty initiating urinatin: NO NEW ISSUES. UNDER CARE OF UROLOGIST. Accidents: NO. Unexplained weight loss: NO. Imaging: RECENT LUMBAR X-RAY - PRETTY NORMAL. NO MRI. STATES DR. AQUINO DISCUSSED DOING FACET JOINT INJECTIONS BUT IF UNSUCCESSFUL MAY NEED MRI. PMH: HEART DZ - STENT 2014 - ON BLOOD THINNERS. HTN. HYPOTHYROIDISM - Objective Sitting/Standing Posture: POOR. REDUCED LORDOSIS. RIGHT ILIAC CREST MILDLY HIGHER THAN LEFT. Lateral shift: LEFT. Relevant shift: NO. Active Correction of posture: NE. Other Observations: DECREASED YUN STRIDE LENGTH. Motor deficit: YUN LE'S 5/5 WITH MMT'ING EXCEPT HIPS GRADED 4/5. Sensory deficit: YUN LE LIGHT TOUCH SENSATION INTACT AND SYMMETRICAL. ROM deficit: TIGHT YUN LE HS'S AND GASTROC SOLEUS COMPLEX'S. Reflexes: 2/3 YUN LE'S. Dural Signs: POSITIVE YUN LE'S. Lumbar mvmt loss: flex - MOD. ext - APOLONIA. R SG - APOLONIA. L SG - MOD TO APOLONIA. PATIENT C/O INCREASED LBP AND RIGHT HIP PAIN WITH RIGHT SG TESTING BUT OTHERWISE NO SIGNIFICANT INCREASE IN C/O PAIN. Core strength: POOR. Palpation: NO ACUTE TENDERNESS WITH PALPATION OF THORACIC, LUMBAR, SACRAL, BUTTOCK OR HIP REGIONS. TREATMENT: NEUROMUSCULAR REEDUCATION - RETRAINING OF MVMT AND POSTURE FOR SITTING, LYING AND STANDING ACTIVITIES. - Goals Goal 1:: DECREASE C/O LOW BACK AND YUN HIP PAIN Goal Time Frame: 4-6 Weeks Goal 2:: IMPROVE BENDING, LIFTING, RISING FROM SITTING, RECREATIONAL AND HOMEMAKING FUNCTION Goal Time Frame: 4-6 Weeks Goal 3:: INSTRUCT IN PROPHYLAXIS Goal Time Frame: 4-6 Weeks - Rehabilitation Potential Rehabilitation Potential: Good - Anticipated Interventions Patient/Client Instruction: Educate patient on: Condition, Plan of Care, Risk Factors, Benefits of Fitness Program For the Purpose of:: To improve self management Therapeutic Exercise to Include: Strength training, Body mechanics, Postural training, Flexibilty training, Neuromotor development, In an aquatic setting, Dynamic Lumbar Stabilization Comment: CONSIDER AQUATIC THERAPY IF UNSUCCESSFUL ON LAND. THIS WAS DISCUSSED WITH PATIENT AND HE IS AGREEABLE. For the Purpose of:: To decrease pain, To increase ROM, To improve muscle performance and motor function, To increase tolerance to activity/condition/position, To improve ability of physical actions for home/community/work/leisure, To improve gait and locomotor functions Cryotherapy (ice pack, ice massage): Yes Thermo therapy (hot pack): Yes Ultrasound (thermal/non thermal): Yes For the Purpose of:: To decrease pain, To improve nutrient delivery to tissue Thank you for the opportunity to evaluate your patient. For Medicare and Medicare HMO plans, please review the plan of care and approve it. It will need to be FAXED BACK to us at [phone] for Medicare purposes. For Medicare only, by signing this I certify the plan of care. Please let me know if there are questions or concerns regarding this plan of care. Physician Signature: Date:
--- NOTE | 2020-01-01 10:05 | HP.PTREVAL ---
Dr. Mariposa Cheatham MD, It has been my pleasure to treat MESSI VILLA over the last 10 visits for BACK PAIN. Please see the progress note below for an update on the physical therapy plan of care! Subjective: PATIENT REPORTS HIS BACK IS DOING GOOD. STARTED THE PRESS UPS AND NO ADVERSE EFFECT. HAS SEVERAL QUESTIONS ABOUT EX AND/OR EX TECHNIQUE THROUGHOUT SESSION TODAY. Objective/Function: BODY MECHANICS GETTING BETTER. DOING MUCH BETTER OVER-ALL AND ABLE TO GET TO MORE CHALLENGING WEIGHT/REPS ON SOME MACHINES TODAY. Plan Plan: CONT PER POC X 1 TO 2 MORE VISITS NEEDED PROGRESSING HOME AND GYM EX'S TOLERATED. PATIENT AGREEABLE. Goals Goal 1:: DECREASE C/O LOW BACK AND YUN HIP PAIN Goal Time Frame: 4-6 Weeks Goal Progress: Progressing Goal 2:: IMPROVE BENDING, LIFTING, RISING FROM SITTING, RECREATIONAL AND HOMEMAKING FUNCTION Goal Time Frame: 4-6 Weeks Goal Progress: Progressing Goal 3:: INSTRUCT IN PROPHYLAXIS Goal Time Frame: 4-6 Weeks Goal Progress: Progressing Anticipated Interventions Patient/Client Instruction: Educate patient on: Condition, Plan of Care, Risk Factors, Benefits of Fitness Program For the Purpose of:: To improve self management Therapeutic Exercise to Include: Strength training, Body mechanics, Postural training, Flexibilty training, Neuromotor development, In an aquatic setting, Dynamic Lumbar Stabilization Comment: CONSIDER AQUATIC THERAPY IF UNSUCCESSFUL ON LAND. THIS WAS DISCUSSED WITH PATIENT AND HE IS AGREEABLE. For the Purpose of:: To decrease pain, To increase ROM, To improve muscle performance and motor function, To increase tolerance to activity/condition/position, To improve ability of physical actions for home/community/work/leisure, To improve gait and locomotor functions Cryotherapy (ice pack, ice massage): Yes Thermo therapy (hot pack): Yes Ultrasound (thermal/non thermal): Yes For the Purpose of:: To decrease pain, To improve nutrient delivery to tissue Please do not hesitate to contact me at [phone] by phone or if you have questions or concerns regarding this new plan of care! Sincerely, Zulema Clinton, PT, Cert MDT
--- NOTE | 2020-01-09 10:51 | HP.PTDCSUM ---
It has been my pleasure to treat MESSI VILLA referred by Dr. Mariposa Cheatham MD, with the diagnosis of BACK PAIN for a total of 12 visit(s). Discharge Date: Please see the following information for a summary of their discharge status. Subjective: PATIENT REPORTS HE IS DOING GOOD. NO PAIN. LOW BACK PAIN Pain Intensity (Out of 10): 1 HIPS Pain Intensity (Out of 10): 1 % Improvement: 100 Objective/Function: RE-ASSESSMENT: ALL GOALS MET. PATIENT IS READY FOR DISCHARGE TO INDEP EX. WRITTEN EX LOG PROVIDED TO PATIENT. INSTRUCTIONS AND FURTHER EDUCATION GIVEN IN CASE OF RE-OCCURENCE. INSTRUCTION GIVEN IN APPROPRIATE SELF PROGRESION OF THER EX Goal 1:: DECREASE C/O LOW BACK AND YUN HIP PAIN Goal Progress: Progressing Goal 2:: IMPROVE BENDING, LIFTING, RISING FROM SITTING, RECREATIONAL AND HOMEMAKING FUNCTION Goal Progress: Progressing Goal 3:: INSTRUCT IN PROPHYLAXIS Goal Progress: Progressing Plan: D/C. PATIENT AGREEABLE. If there are questions or concerns regarding this patient's physical therapy, please feel free to call me at [phone]. Thank you for the referral of this patient. Sincerely, Zulema Clinton, PT, Cert MDT
== END 2020-01-09 19:00 | disposition home or self-care (01) ==
LOC: PT 08:30
PROVIDERS: PCP Family Medicine; Referring Provider Anesthesiology Pain Medicine; Visit Provider Anesthesiology Pain Medicine
DX: M54.9 Dorsalgia, unspecified (principal)
CPT/HCPCS: 97035; 97110; 97112; 97162; 97164; 97530

== ENCOUNTER → 2020-01-26 06:44 | Outpatient (CLI) | payer MEDICARE, OTHER, SELFPAY ==
[2020-01-20 14:54] VITALS: BMI 26.9
--- NOTE | 2020-01-26 11:26 | STRESSREP ---
Stress Test Report Exercise myocardial perfusion stress test. 74-year-old man with a history of a bifascicular block and chest pain and known coronary artery disease. Stress protocol: Resting KG demonstrates sinus bradycardia with a rate of 51 bpm right bundle branch block pattern is noted resting blood pressures 130/82 mmHg. The patient exercised according to the regular Gamaliel protocol for a total duration of 10 minutes. The maximum heart rate attained was 139 bpm which was 95% of maximum predicted heart rate the maximum workload was 11.7 metabolic equivalents. The patient maintained sinus rhythm throughout the recording with no EKG changes suggestive of ischemia. The maximum blood pressure was 184/78 mmHg. No clinical angina was noted the test was terminated due to the target heart rate being achieved. Moderate shortness of breath was noted. Myocardial perfusion protocol. 11.9 mCi of technetium 99m sestamibi was injected at rest. Patient exercised according to regular Gamaliel protocol for 10 minutes at peak exercise 32.8 mCi of technetium 99m sestamibi was injected stress images were obtained stress and rest images were reconstructed in comparing the short axis vertical long horizontal long axis. Gated images were also obtained Perfusion SPECT analysis: Review of the stress images demonstrate normal uptake of tracer noted in all areas of the myocardium the resting images similar demonstrate normal uptake of tracer noted in all areas of the myocardium. No areas of reversibility are noted to suggest ischemia no previous infarct is noted. Gated SPECT analysis: The gated ejection fraction was approximately 53%. Conclusion: Normal exercise myocardial perfusion stress test at a high workload. Good functional capacity. No conduction system abnormalities noted. No clinical angina noted. Normal images present.
== END ==
PROVIDERS: PCP Family Medicine; Referring Provider Internal Medicine Cardiovascular Disease; Visit Provider Internal Medicine Cardiovascular Disease
DX: I25.10 Atherosclerotic heart disease of native coronary artery without angina pectoris (principal); Z95.5 Presence of coronary angioplasty implant and graft
CPT/HCPCS: 78452; 93017; A9500; A4216

== ENCOUNTER → 2020-02-16 15:59 | Outpatient (CLI) | payer MEDICARE, OTHER, SELFPAY ==
[2020-01-20 14:54] VITALS: BMI 26.9
--- NOTE | 2020-02-16 16:02 | VDLE_ITS ---
Reason For Study: Swelling RIGHT LEFT CFV is compressible, spontaneous, phasic, GSV is normal. competent and demonstrates normal CFV is compressible, spontaneous, phasic, augmentation. competent, and demonstrates normal Procedure augmentation. Exam performed in department. FV is compressible, spontaneous, phasic, A preliminary report was called and/or faxed competent and demonstrates normal to Dr. Deluna. augmentation. POP V is compressible, spontaneous, phasic, competent and demonstrates normal augmentation. T/P Trunk is compressible. PTV is compressible. LT PerV is compressible. Hypoechoic, non vascular structure noted Lt anterior calf (over area of injury) measuring 0.68cm x 4.0cm. Interpretation Summary Deep veins of the left lower extremity are patent and compressible segmentally. There is no evidence of left lower extremity deep vein thrombosis. Valvular competence appears intact within the proximal deep venous system on the left . The left great saphenous vein appears patent and compressible segmentally. A non-vascular, hypoechoic structure is noted on the left anterior calf, measuring 0.68 cm x 4.0 cm. This may represent a seroma or hematoma. Clinical correlation is advised. Ordering Physician: Noam Deluna Referring Physician: Rigoberto Elise Performed By: Melony Nelson RDCS, RVT
== END ==
PROVIDERS: PCP Family Medicine; Referring Provider Family Medicine; Visit Provider Family Medicine
DX: M79.89 Other specified soft tissue disorders (principal)
CPT/HCPCS: 93971

== ENCOUNTER → 2020-05-28 07:34 | Outpatient (CLI) | payer MEDICARE, OTHER, SELFPAY ==
[2020-01-20 14:54] VITALS: BMI 26.9
[2020-05-28 08:16] LABS: Absolute Lymphocyte Count 1.38 X10^3/uL (0.83-4.51); Absolute Neutrophil Count 2.4 X10^3/uL (2.0-7.7); Basophil# 0.03 X10^3/uL; Basophil% 0.6 % (0-1); Eosinophil# 0.34 X10^3/uL; Eosinophils% 7.2 % (0-5); Hematocrit 41.7 % (40-54); Hemoglobin 13.8 g/dL (13.0-16.5); Lymphocyte # 1.38 X10^3/ul (4.0); Lymphocyte % 29.4 % (19-41); Mean Corp Hgb Conc 33.1 g/dL (32-36); Mean Corpuscular Hgb 32.6 pg (27.0-32.0); Mean Corpuscular Volume 98.6 fL (80-94); Mean Platelet Vol. 10.6 fl (6.2-12.0); Monocyte# 0.55 X10^3/uL; Monocyte% 11.7 % (0-10); NRBC Flagged by Analyzer 0 % (0-5); Neutrophil % 51.1 % (47-70); Platelet Count 205 K/mm3 (150-450); RBC Distribution Width CV 12.9 % (11.6-14.6); RBC Distribution Width SD 46.3 fl (35.1-43.9); Red Blood Count 4.23 M/mm3 (4.6-6.2); White Blood Count 4.7 K/mm3 (4.4-11.0)
[2020-05-28 08:52] LABS: ALB/GLOB Ratio 0.9 RATIO (0.9-2.4); AST(SGOT) 27 U/L (15-37); Alanine Aminotransfer ALT/SGPT 24 U/L (16-61); Albumin, Serum 3.4 g/dL (3.2-5.0); Alkaline Phosphatase 91 U/L (45-117); Anion Gap 5 (5-15); BUN 25 mg/dL (7-18); BUN/Creat Ratio 21.6 RATIO (10-20); Calcium,Total 8.2 mg/dL (8.5-10.1); Chloride 104 mmol/L (98-107); Cholesterol 119 mg/dL (200); Creatinine, Serum 1.16 mg/dL (0.70-1.30); EST Glomerular Filtration Rate 65 mL/min (>60); Est Glom Filt Rate - Afr Amer 79 mL/min (>60); Globulin 3.7 g/dL (2.2-4.2); Glucose 89 mg/dL (74-106); High Density Lipoprotein 59 mg/dL; Potassium 3.7 mmol/L (3.5-5.1); Protein, Total 7.1 g/dL (6.4-8.2); Sodium Level 139 mmol/L (136-145); T4 Free Direct 1.06 ng/dL (0.76-1.46); Thyroid Stim Hormone (TSH) 3.22 uIU/mL (0.358-3.74); Triglycerides 61 mg/dL; Very Low Density Lipoprotein 12 mg/dL (5-40)
== END ==
PROVIDERS: PCP Family Medicine; Referring Provider Family Medicine; Visit Provider Family Medicine
DX: E03.9 Hypothyroidism, unspecified (principal); I10 Essential (primary) hypertension; E78.5 Hyperlipidemia, unspecified
CPT/HCPCS: 36415; 80053; 80061; 84439; 84443; 85025

== ENCOUNTER → 2020-08-09 10:33 | Outpatient (CLI) | payer MEDICARE, OTHER, SELFPAY ==
[2020-01-20 14:54] VITALS: BMI 26.9
--- NOTE | 2020-08-09 10:42 | RAD_ITS ---
HISTORY: RIGHT LOWER AXILLARY INTO POSTERIOR BACK PAIN AND CONTUSION EXAMINATION/TECHNIQUE: XR Ribs Unilateral W/ PA Chest 4 Views: COMPARISON: April 26, 2019 FINDINGS: LINES/DEVICES: None. LUNGS: No consolidation, edema or effusion. No pneumothorax. MEDIASTINUM AND CARDIOVASCULAR STRUCTURES: Cardiac silhouette not enlarged. Central airways and mediastinal contour are unremarkable. RIBS AND OSSEOUS STRUCTURES: Right posterior eighth and ninth ribs are fractured Right anterior lateral fifth rib may also be fractured RAD/Ribs Uni Min 3V w/PA Chest IMPRESSION: Right eighth and ninth rib fractures. Possible right fifth rib fracture.. No pneumothorax. No pulmonary contusion. at 0203 Reported and signed by: Jack Paris MD Electronically Signed: Jack Paris MD at 2:02 EST Tel , Service support ,
== END ==
PROVIDERS: PCP Family Medicine; Referring Provider Family Medicine; Visit Provider Family Medicine
DX: R07.81 Pleurodynia (principal)
CPT/HCPCS: 71101

== ENCOUNTER 2020-08-27 03:00 | Emergency (ER) | payer MEDICARE, OTHER, SELFPAY ==
[2020-01-20 14:54] VITALS: BMI 26.9
[2020-08-27 03:01] VITALS: BP 191/83; PULSE 73; RESP 15; TEMP 35.9; O2SAT 98; BMI 25.5
--- NOTE | 2020-08-27 03:06 | ED.DCSUM_ITS ---
History of Present Illness Chief Complaint: Allergic Reaction Informant: Patient Onset: Today Context: Gradual Onset Timing: Continuous Current Severity: Moderate Maximum Severity: Moderate Narrative: The patient is a 75-year-old male presents to the emergency department with tongue swelling. The patient states that he had dinner. He states he did not eat anything different. He also had some blackberry cobbler. He states shortly after, he began to notice some pain in the left side of his tongue. He states he looked in the mirror noticed that it was swelling. He states that its gradually increased in swelling, but very slowly. He denies trouble swallowing. He does not feel short of breath. The patient is on ramipril, but states has been taking it for 10 years. He has never had anything like this before. Prior similar symptoms: No Recent Illness/Hospitalization: No Past Medical History - Allergies and Home Meds Allergies/Adverse Reactions: Allergies No Known Allergies Allergy (Verified 08/27/20 03:04) Primary Care Physician: Rigoberto Elise MD [Primary Care Provider] - Prior records reviewed: Yes Past Medical History: - - Hypertension, hyperlipidemia Surgical History: noncontributory Smoking Status: Never smoker Review of Systems General: Denies: Chills, Fever, Sweats Eyes: Denies: Visual changes - bilaterally, Diplopia ENT: Denies: Rhinorrhea, Sore throat Cardiovascular: Denies: Chest pain, Palpitations Respiratory: Denies: Dyspnea, Cough, Dyspnea on exertion Gastrointestinal: Denies: Abdominal pain, Nausea, Vomiting, Diarrhea, Melena, Hematochezia Genitourinary: Denies: Dysuria, Hematuria, Frequency Musculoskeletal: Denies: Back pain, Extremity Pain Skin: Denies: Rash, Wounds Neurological: Denies: Headache, Weakness, Numbness Physical Exam Vital Signs/Narrative: Vital Signs Temp Pulse Resp BP Pulse Ox 08/27/20 03:01 96.6 F L 73 15 191/83 H 98 Inital Vital Signs reviewed: Yes General: Well nourished, Well developed, No Acute Distress Head: Normocephalic, Atraumatic Eyes: Perrl, EOMI ENT: Moist mucous membranes, No rhinorrhea, - - There is no angioedema of the tongue. There is also mild edema of the soft palate. However, there is no trismus or stridor. The submental space is soft. Neck: Supple, Nontender Cardiovascular: Regular rate, Regular rhythm, No murmurs Respiratory: No distress, CTA bilaterally, Chest nontender Abdomen: Soft, Nontender, Nondistended, Normal bowel sounds Back: Nontender, Normal Inspection Extremities: Nontender, No edema Skin: Normal color, No rash Neurological: Alert, Oriented x3, Cranial nerves II-XII grossly intact, Normal Strength, Normal Sensation Psychological: Normal affect, Normal Mood Diagnostic/Tx/Re-eval - Medical Decision Making Patient presents with angioedema that is isolated to the tongue and soft palate. There is no trismus or stridor. IV was established. He was treated with Solu- Medrol, Pepcid, and Benadryl. He was frequently reevaluated. At 2 hours, he had almost total resolution of his symptoms. He is improving and resting comfortably. He wants to follow-up as an outpatient. I do feel that this is reasonable. I am going to keep him on a prednisone burst and I will also have him stop his XANDER inhibitor until he follows with cardiology. He is comfortable with this plan of care. Impression 1. Angioedema ED Disposition - Plan for ED Patient: Instructions: ED Angioedema Prescriptions: Prednisone [Deltasone] 40 mg PO DAILY #10 tab Prescription Printed Referrals: Rigoberto Elise MD [Primary Care Provider] - Additional Instructions: Stop taking your ramipril.
[2020-08-27 03:11] LABS: Absolute Lymphocyte Count 1.32 X10^3/uL (0.83-4.51); Absolute Neutrophil Count 9.9 X10^3/uL (2.0-7.7); Basophil# 0.03 X10^3/uL; Basophil% 0.2 % (0-1); Eosinophil# 0.18 X10^3/uL; Eosinophils% 1.5 % (0-5); Hematocrit 42.2 % (40-54); Hemoglobin 14.4 g/dL (13.0-16.5); Lymphocyte # 1.32 X10^3/ul (4.0); Lymphocyte % 10.7 % (19-41); Mean Corp Hgb Conc 34.1 g/dL (32-36); Mean Corpuscular Hgb 32.8 pg (27.0-32.0); Mean Corpuscular Volume 96.1 fL (80-94); Mean Platelet Vol. 10.1 fl (6.2-12.0); Monocyte% 7.3 % (0-10); NRBC Flagged by Analyzer 0 % (0-5); Neutrophil # 9.88 X10^3/uL (2.7-7.7); Neutrophil % 79.9 % (47-70); Platelet Count 263 K/mm3 (150-450); RBC Distribution Width CV 12.7 % (11.6-14.6); RBC Distribution Width SD 44.9 fl (35.1-43.9); Red Blood Count 4.39 M/mm3 (4.6-6.2); White Blood Count 12.4 K/mm3 (4.4-11.0)
[2020-08-27] MEDS: MethylPREDNISolone 125 MG/2 ML Vial IV (03:11)
[2020-08-27] MEDS: DiphenhydrAMINE 50 MG/ML Syringe IV (03:12)
[2020-08-27] MEDS: Famotidine 200 MG/20 ML MDV 20 MG in 0.9% Normal Saline (Pres. free 8 ML 300 MG IV (03:15)
[2020-08-27 03:28] LABS: ALB/GLOB Ratio 0.9 RATIO (0.9-2.4); AST(SGOT) 23 U/L (15-37); Alanine Aminotransfer ALT/SGPT 25 U/L (16-61); Albumin, Serum 3.6 g/dL (3.2-5.0); Alkaline Phosphatase 127 U/L (45-117); Anion Gap 6 (5-15); BUN 28 mg/dL (7-18); BUN/Creat Ratio 25.2 RATIO (10-20); Calcium,Total 8.6 mg/dL (8.5-10.1); Chloride 104 mmol/L (98-107); Creatinine, Serum 1.11 mg/dL (0.70-1.30); EST Glomerular Filtration Rate 69 mL/min (>60); Est Glom Filt Rate - Afr Amer 83 mL/min (>60); Globulin 4.1 g/dL (2.2-4.2); Glucose 133 mg/dL (74-106); Potassium 3.6 mmol/L (3.5-5.1); Protein, Total 7.7 g/dL (6.4-8.2); Sodium Level 138 mmol/L (136-145)
[2020-08-27 05:15] VITALS: PULSE 88; RESP 14; O2SAT 98
== END 2020-08-27 05:15 | disposition home or self-care (01) ==
LOC: ED 03:43
PROVIDERS: Emergency Provider Emergency Medicine; PCP Family Medicine
DX: T78.3XXA Angioneurotic edema, initial encounter (principal); I10 Essential (primary) hypertension; E78.5 Hyperlipidemia, unspecified; Z79.82 Long term (current) use of aspirin; Z79.899 Other long term (current) drug therapy
CPT/HCPCS: 80053; 85025; 96374; 96375; 99284; J7040; A4216; J3490

== ENCOUNTER 2020-09-15 09:13 | Outpatient (RCR) | payer MEDICARE, OTHER, SELFPAY | END 2020-09-15 23:59 | LOC: IMMUN 09:13 | PROVIDERS: PCP Family Medicine; Visit Provider Family Medicine | DX: Z23 Encounter for immunization (principal) | CPT/HCPCS: 0011A; 0012A; 91301 ==

== ENCOUNTER 2020-10-12 00:45 | Observation (INO) | payer MEDICARE, OTHER, SELFPAY ==
[2020-10-12] VITALS (13 sets, daily range): BP systolic 134–182; BP diastolic 64–82; PULSE 62–87; RESP 12–24; TEMP 32.7–36.9; O2SAT 91–98; BMI 27.8; BMI 25.6; BMI 25.7
--- NOTE | 2020-10-12 00:56 | ED.DCSUM_ITS ---
History of Present Illness Chief Complaint: Allergic Reaction Informant: Patient Narrative: 75-year-old male presents with 2 hours of tongue swelling. He states this happened to him a couple months ago and was felt to be angioedema secondary to ramipril use. He states that he had a secondary occurrence since that visit where his lips swelled. He states he has never had to be put on a ventilator or be hospitalized as his symptoms significantly improved with ED treatment. He denies anything new that he can recall would have set this off. He states that the amount of swelling feels very similar to what it was. He states he is not having any difficulty breathing. 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 (4) History of coronary artery stent placement Status: Resolved Comment: PCI-SHERYL-OM2 w/ 2.5 x 18 mm Resolute Integrity 12/05/2013 Past Medical History - Allergies and Home Meds Allergies/Adverse Reactions: Allergies ramipril Allergy (Severe, Verified 10/12/20 00:54) Angioedema Primary Care Physician: Rigoberto Elise MD [Primary Care Provider] - Surgical History: noncontributory Lives: Spouse/ Significant Other Smoking Status: Never smoker Drugs: None Review of Systems General: Denies: Chills, Fever, Sweats Eyes: Denies: Visual changes - bilaterally, Diplopia ENT: Reports: - - Tongue swelling. Denies: Rhinorrhea, Sore throat Cardiovascular: Denies: Chest pain, Palpitations Respiratory: Denies: Dyspnea, Cough, Dyspnea on exertion Gastrointestinal: Denies: Abdominal pain, Nausea, Vomiting, Diarrhea, Melena, Hematochezia Genitourinary: Denies: Dysuria, Hematuria, Frequency Musculoskeletal: Denies: Back pain, Extremity Pain Skin: Denies: Rash, Wounds Neurological: Denies: Headache, Weakness, Numbness Physical Exam Vital Signs/Narrative: Vital Signs Temp Pulse Resp Pulse Ox 10/12/20 00:46 98.1 F 72 18 96 Inital Vital Signs reviewed: Yes General: Well nourished, Well developed, No Acute Distress Head: Normocephalic, Atraumatic Eyes: Perrl, EOMI ENT: Moist mucous membranes, No rhinorrhea, - - There is swelling of the patient's tongue and the floor of the mouth. I cannot visualize the uvula. He is handling his secretions. Voice is muffled but I can understand him. Neck: Supple, Nontender Cardiovascular: Regular rate, Regular rhythm, No murmurs Respiratory: No distress, CTA bilaterally, Chest nontender Abdomen: Soft, Nontender, Nondistended, Normal bowel sounds Back: Nontender, Normal Inspection Extremities: Nontender, No edema Skin: Normal color, No rash Neurological: Alert, Oriented x3, Cranial nerves II-XII grossly intact, Normal Strength, Normal Sensation Psychological: Normal affect, Normal Mood Diagnostic/Tx/Re-eval Laboratory Last Values WBC 7.3 K/mm3 (4.4-11.0) 10/12/20 00:50 RBC 4.54 M/mm3 (4.6-6.2) L 10/12/20 00:50 Hgb 14.8 g/dL (13.0-16.5) 10/12/20 00:50 Hct 43.5 % (40-54) 10/12/20 00:50 MCV 95.8 fL (80-94) H 10/12/20 00:50 MCH 32.6 pg (27.0-32.0) H 10/12/20 00:50 MCHC 34.0 g/dL (32-36) 10/12/20 00:50 RDW Std Deviation 45.1 fl (35.1-43.9) H 10/12/20 00:50 RDW Coeff of Alfredo 12.8 % (11.6-14.6) 10/12/20 00:50 Plt Count 257 K/mm3 (150-450) 10/12/20 00:50 MPV 10.1 fl (6.2-12.0) 10/12/20 00:50 Immature Gran % (Auto) 0.400 % (0.0-0.9) 10/12/20 00:50 Neut % (Auto) 53.6 % (47-70) 10/12/20 00:50 Lymph % (Auto) 30.4 % (19-41) 10/12/20 00:50 [place] % (Auto) 11.4 % (0-10) H 10/12/20 00:50 Eos % (Auto) 3.7 % (0-5) 10/12/20 00:50 Baso % (Auto) 0.5 % (0-1) 10/12/20 00:50 Absolute Neuts (auto) 3.9 X10^3/uL (2.0-7.7) 10/12/20 00:50 Absolute Lymphs (auto) 2.22 X10^3/uL (0.83-4.51) 10/12/20 00:50 Nucleated RBC % 0 % (0-5) 10/12/20 00:50 Sodium 139 mmol/L (136-145) 10/12/20 00:50 Potassium 3.5 mmol/L (3.5-5.1) 10/12/20 00:50 Chloride 103 mmol/L (98-107) 10/12/20 00:50 Carbon Dioxide 33.0 mmol/L (21.0-32.0) H 10/12/20 00:50 Anion Gap 3 (5-15) L 10/12/20 00:50 BUN 27 mg/dL (7-18) H 10/12/20 00:50 Creatinine 1.21 mg/dL (0.70-1.30) 10/12/20 00:50 Estim Creat Clear Calc 47.60 ml/min 10/12/20 00:50 Est GFR (MDRD) Af Amer 75 mL/min (>60) 10/12/20 00:50 Est GFR (MDRD) Non-Af 62 mL/min (>60) 10/12/20 00:50 BUN/Creatinine Ratio 22.3 RATIO (10-20) H 10/12/20 00:50 Glucose 113 mg/dL (74-106) H 10/12/20 00:50 Calcium 9.1 mg/dL (8.5-10.1) 10/12/20 00:50 Total Bilirubin 0.40 mg/dL (0.20-1.00) 10/12/20 00:50 AST 26 U/L (15-37) 10/12/20 00:50 ALT 30 U/L (16-61) 10/12/20 00:50 Alkaline Phosphatase 117 U/L (45-117) 10/12/20 00:50 Total Protein 8.0 g/dL (6.4-8.2) 10/12/20 00:50 Albumin 3.9 g/dL (3.2-5.0) 10/12/20 00:50 Globulin 4.1 g/dL (2.2-4.2) 10/12/20 00:50 Albumin/Globulin Ratio 1.0 RATIO (0.9-2.4) 10/12/20 00:50 - Medical Decision Making IV was established. Patient received Pepcid Benadryl and Solu-Medrol. Patient was observed for 3-1/2 hours. He tells me he believes it is better his is not so sure that and neither [place]. States he really wants to go home and make an orthopedic appointment at 9 AM. His voice is still muffled he still spitting some of his secretions I think it would be best to observe him in the hospital. ED Disposition - Plan for ED Patient: Disposition: Acute Care Hospital [facility] Diagnosis: Angioedema Referrals: Rigoberto Elise MD [Primary Care Provider] -
[2020-10-12 01:01] LABS: Absolute Lymphocyte Count 2.22 X10^3/uL (0.83-4.51); Absolute Neutrophil Count 3.9 X10^3/uL (2.0-7.7); Basophil# 0.04 X10^3/uL; Basophil% 0.5 % (0-1); Eosinophil# 0.27 X10^3/uL; Eosinophils% 3.7 % (0-5); Hematocrit 43.5 % (40-54); Hemoglobin 14.8 g/dL (13.0-16.5); Lymphocyte # 2.22 X10^3/ul (4.0); Lymphocyte % 30.4 % (19-41); Mean Corpuscular Hgb 32.6 pg (27.0-32.0); Mean Corpuscular Volume 95.8 fL (80-94); Mean Platelet Vol. 10.1 fl (6.2-12.0); Monocyte# 0.83 X10^3/uL; Monocyte% 11.4 % (0-10); NRBC Flagged by Analyzer 0 % (0-5); Neutrophil # 3.92 X10^3/uL (2.7-7.7); Neutrophil % 53.6 % (47-70); Platelet Count 257 K/mm3 (150-450); RBC Distribution Width CV 12.8 % (11.6-14.6); RBC Distribution Width SD 45.1 fl (35.1-43.9); Red Blood Count 4.54 M/mm3 (4.6-6.2); White Blood Count 7.3 K/mm3 (4.4-11.0)
[2020-10-12] MEDS: Famotidine 200 MG/20 ML MDV 20 MG in 0.9% Normal Saline (Pres. free 8 ML 300 MG IV ×2 (01:03→10:05)
[2020-10-12] MEDS: DiphenhydrAMINE 50 MG/ML Syringe 25 MG IV (01:03)
[2020-10-12] MEDS: MethylPREDNISolone 125 MG/2 ML Vial IV (01:03)
[2020-10-12 01:18] LABS: AST(SGOT) 26 U/L (15-37); Alanine Aminotransfer ALT/SGPT 30 U/L (16-61); Albumin, Serum 3.9 g/dL (3.2-5.0); Alkaline Phosphatase 117 U/L (45-117); Anion Gap 3 (5-15); BUN 27 mg/dL (7-18); BUN/Creat Ratio 22.3 RATIO (10-20); Calcium,Total 9.1 mg/dL (8.5-10.1); Chloride 103 mmol/L (98-107); Creatinine, Serum 1.21 mg/dL (0.70-1.30); EST Glomerular Filtration Rate 62 mL/min (>60); Est Glom Filt Rate - Afr Amer 75 mL/min (>60); Globulin 4.1 g/dL (2.2-4.2); Glucose 113 mg/dL (74-106); Potassium 3.5 mmol/L (3.5-5.1); Sodium Level 139 mmol/L (136-145)
--- NOTE | 2020-10-12 01:40 | ED.RN ---
Patient reports he is doing the same, with no change in swelling/symptoms, at this time.
--- NOTE | 2020-10-12 04:36 | HP.PCM_ITS ---
Problem List (1) Angioedema Status: Acute (2) History of coronary artery stent placement Status: Resolved Comment: PCI-SHERYL-OM2 w/ 2.5 x 18 mm Resolute Integrity 12/05/2013 (3) Essential (primary) hypertension Status: Chronic (4) Hyperlipidemia Status: Chronic Qualifiers: Hyperlipidemia type: pure hypercholesterolemia Qualified Code(s): E78.00 - Pure hypercholesterolemia, unspecified; E78.0 - Pure hypercholesterolemia History of Present Illness Date of Admission: 10/12/20 Chief Complaint: angioedema (swollen tongue) The patient is a 75 year old patient with a significant past medical history of coronary artery disease, hyperlipidemia, hypertension who presents the emergency room with 2 hours of onset of swelling of his tongue. Patient has a history of angioedema to previous times and the first episode was thought to have been caused by XANDER inhibitor. Since this time he has had a similar presentation with numbness and tingling in his tongue along with increased swelling of the tongue following and this episode feels similar to previous ones. Despite receiving methylprednisolone, adrenal and Pepcid in the emergency room the patient continues to have about the same a level of swelling in his tongue and it was decided to admit the patient for observation until this subsides. The patient currently is able to speak in full sentences and is not short of breath and no other complaints at this time. Past Medical History Past Medical History (Chronic Problems): Chronic Problems (Last Reviewed 01/20/20 @ 15:[address] 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 (Chronic) I45.2 Essential (primary) hypertension (Chronic) I10 Hyperlipidemia (Chronic) E78.5 Multiple thyroid nodules E04.2 Thyroid disease E07.9 Loss of consciousness R40.20 Allergies ramipril Allergy (Severe, Verified 10/12/20 00:54) Angioedema Home Medications: Ambulatory Orders Medication Instructions Recorded Aspirin [Aspirin, Baby] 81 mg PO DAILY@0800 11/07/13 levothyroxine 50 mcg capsule 75 mcg PO DAILY 01/21/19 atorvastatin 10 mg tablet 10 mg PO QDAY #90 tab 05/07/20 amlodipine 10 mg tablet 10 mg PO DAILY #30 tab 08/27/20 hydrochlorothiazide 25 mg tablet 25 mg PO DAILY #60 tab 08/27/20 Surgical History: Surgical History (Last Reviewed 01/20/20 @ 15:[address] Edd Berman MD) History of coronary artery stent placement (Resolved) Onset Date: 12/05/13 Z95.5 PCI-SHERYL-OM2 w/ 2.5 x 18 mm Resolute Integrity 12/05/2013 History of excision of pilonidal cyst Z98.890 History of left heart catheterization Onset Date: 10/2013 Z98.890 11/10/2013 @ [facility] per Dr. Berman History of tonsillectomy Z90.89 Surgical History: noncontributory Lives: Spouse/ Significant Other Smoking Status: Never smoker Drugs: None - *Family History Maternal Family History: Family History (Last Reviewed 01/20/20 @ 15:[address] Edd Berman MD) Father CAD (coronary artery disease) cabg Mother Pancreatic cancer History Items: No pertinent history Review of Systems Constitutional: Denies: Chills, Fever, Weight Change HEENT: Reports: - - tongue swelling. Denies: Head Aches, Sinus Congestion, Sinus Drainage Cardiovascular: Denies: Chest Pain, Palpitations Respiratory: Denies: Cough, Shortness of breath at rest, Sputum production Gastrointestinal: Denies: Abdominal Pain, Nausea, Vomiting Genitourinary: Denies: Dysuria Musculoskeletal: Denies: Joint Pain, Joint Tenderness Skin: Denies: Rash, Wounds Neurological: Denies: Numbness, Tingling, Focal weakness Psychiatric: Denies: Anxiety, Depression, Homicidal Ideations, Suicidal Ideations Hematologic/ Lymphatic: Denies: Easy Bruising, Easy Bleeding VTE Information - Inpt Only VTE Present on Admission: No VTE Mechan Device Prophylaxis: None VTE Pharm Prophylaxis ordered?: Yes Patient Problems: Active and Suspected Problems (Last Reviewed 01/20/20 @ 15:[address] Edd Berman MD) Angioedema (Acute) - Physical Exam Vitals/I&O's: Vital Signs Temp Pulse Resp BP Pulse Ox 91 F L 71 13 134/72 H 91 10/12/20 04:32 10/12/20 04:32 10/12/20 04:32 10/12/20 04:32 10/12/20 04:32 Oxygen Delivery Method Room Air Weight: 172 lb 2.896 oz Body Mass Index (BMI) 27.8 Intake and Output for Last 24 Hours 10/10/20 10/11/20 10/12/20 23:59 23:59 23:59 Intake Total Balance General: Alert, Oriented x3, Cooperative HEENT: Atraumatic, Normocephalic, - - enlarged tongue Neck: Supple Lungs: Clear to auscultation, Normal air movement Cardiovascular: Regular rate, No murmurs Abdomen: Bowel Sounds Present, Soft, Non Tender Extremities: No edema Skin: No rashes Neurological: Neuro grossly intact Psych/Mental Status: Normal Affect, Appropriate Laboratory Results 10/12/20 00:50: WBC 7.3, RBC 4.54 L, Hgb 14.8, Hct 43.5, MCV 95.8 H, MCH 32.6 H, MCHC 34.0, RDW Std Deviation 45.1 H, RDW Coeff of Alfredo 12.8, Plt Count 257, MPV 10.1, Immature Gran % (Auto) 0.400, Neut % (Auto) 53.6, Lymph % (Auto) 30.4, [place] % (Auto) 11.4 H, Eos % (Auto) 3.7, Baso % (Auto) 0.5, Absolute Neuts (auto) 3.9, Absolute Lymphs (auto) 2.22, Nucleated RBC % 0 10/12/20 00:50: Sodium 139, Potassium 3.5, Chloride 103, Carbon Dioxide 33.0 H, Anion Gap 3 L, BUN 27 H, Creatinine 1.21, Estim Creat Clear Calc 47.60, Est GFR (MDRD) Af Amer 75, Est GFR (MDRD) Non-Af 62, BUN/Creatinine Ratio 22.3 H, Glucose 113 H, Calcium 9.1, Total Bilirubin 0.40, AST 26, ALT 30, Alkaline Phosphatase 117, Total Protein 8.0, Albumin 3.9, Globulin 4.1, Albumin/Globulin Ratio 1.0 Assessment/Plan All Active Problems (Last Reviewed 01/20/20 @ 15:[address] Edd Bemran MD) Angioedema (Acute) Atherosclerotic heart disease [place] coronary artery w/angina pectoris (Acute) History of coronary artery stent placement (Resolved 12/05/13) Urinary tract infection (Resolved) Chronic Problems (Last Reviewed 01/20/20 @ 15:[address] 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 Angioedema/idiopathic?admit patient to progressive care unit for observation?continue methylprednisolone, famotidine and Benadryl continue to monitor for resolution of tongue swelling prior to discharge. 2. Hypertension?continue home medication 3. Hyperlipidemia?continue statin 4. DVT prophylaxis?low molecular weight heparin OBSV E&M: [id number] Initial observation care L2
[2020-10-12] MEDS: Levothyroxine 75 MCG Tablet PO (06:28)
[2020-10-12] MEDS: Aspirin 81 MG TAB.CHEW PO (08:10)
--- NOTE | 2020-10-12 09:37 | PN_ITS ---
Patient Problems: Active and Suspected Problems (Last Reviewed 01/20/20 @ 15:[address] Edd Berman MD) Angioedema (Acute) Reason for Visit: 1. Angioedema 2. Essential hypertension 3. Hyperlipidemia Vitals/I&O's: Vital Signs Temp Pulse Resp BP Pulse Ox 98.1 F 74 14 147/72 H 94 10/12/20 08:27 10/12/20 08:27 10/12/20 08:27 10/12/20 08:27 10/12/20 08:27 Oxygen Delivery Method Room Air Weight: 173 lb 11.588 oz Body Mass Index (BMI) 25.6 Intake and Output for Last 24 Hours 10/10/20 10/11/20 10/12/20 23:59 23:59 23:59 Intake Total 130 / 130 Balance 130 / 130 General: Alert, Oriented x3, Cooperative HEENT: Atraumatic, PERRLA, EOMI, Normocephalic Oral: Moist Mucosa, - - tongue mildly swollen, decreased sensation on right side of tongue. Neck: Supple, No JVD, Negative Carotid Bruits Lungs: Clear to auscultation, Normal air movement Cardiovascular: Regular rate, Regular Rhythm, Normal S1, Normal S2, No murmurs Abdomen: Bowel Sounds Present, Soft, Non Tender Extremities: No edema, Capillary Refill Less than 3 Seconds Skin: No rashes, No breakdown Musculoskeletal: No Tenderness to Palpation of Joints or Extremities Neurological: Cranial nerves II-XII grossly intact Psych/Mental Status: Normal Affect, Appropriate Laboratory Results 10/12/20 00:50: WBC 7.3, RBC 4.54 L, Hgb 14.8, Hct 43.5, MCV 95.8 H, MCH 32.6 H, MCHC 34.0, RDW Std Deviation 45.1 H, RDW Coeff of Alfredo 12.8, Plt Count 257, MPV 10.1, Immature Gran % (Auto) 0.400, Neut % (Auto) 53.6, Lymph % (Auto) 30.4, [place] % (Auto) 11.4 H, Eos % (Auto) 3.7, Baso % (Auto) 0.5, Absolute Neuts (auto) 3.9, Absolute Lymphs (auto) 2.22, Nucleated RBC % 0 10/12/20 00:50: Sodium 139, Potassium 3.5, Chloride 103, Carbon Dioxide 33.0 H, Anion Gap 3 L, BUN 27 H, Creatinine 1.21, Estim Creat Clear Calc 47.60, Est GFR (MDRD) Af Amer 75, Est GFR (MDRD) Non-Af 62, BUN/Creatinine Ratio 22.3 H, Glucose 113 H, Calcium 9.1, Total Bilirubin 0.40, AST 26, ALT 30, Alkaline Phosphatase 117, Total Protein 8.0, Albumin 3.9, Globulin 4.1, Albumin/Globulin Ratio 1.0 Current Medications Amlodipine Besylate (Amlodipine 10 Mg Tablet) 10 mg PO DAILY [facility] Aspirin (Aspirin 81 Mg Tab.Chew) 81 mg PO DAILY@0800 [facility] Last Admin: 10/12/20 08:10 Dose: 81 mg Documented by: Atorvastatin Calcium (Atorvastatin Calcium 10 Mg Tablet) 10 mg PO QHS [facility] Diphenhydramine HCl (Diphenhydramine 50 Mg/Ml Syringe) 25 mg IV Q6H PRN PRN PRN Reason: Angioedema Enoxaparin Sodium (Enoxaparin 40 Mg/0.4 Ml Syringe) 40 mg SC DAILY [facility] Hydrochlorothiazide (Hydrochlorothiazide 25 Mg Tablet) 25 mg PO DAILY [facility] Famotidine 20 mg/ Sodium (Chloride) 10 mls @ 300 mls/hr IV Q12 [facility] Levothyroxine Sodium (Levothyroxine 75 Mcg Tablet) 75 mcg PO DAILY@0600 [facility] Last Admin: 10/12/20 06:28 Dose: 75 mcg Documented by: Methylprednisolone (Methylprednisolone 40 Mg/Ml Vial) 40 mg IV Q8 [facility] Last Admin: 10/12/20 05:40 Dose: 40 mg Documented by: Ondansetron HCl (Ondansetron 4 Mg/2 Ml Vial) 4 mg IV Q8H PRN PRN PRN Reason: NAUSEA/VOMITING Sodium Chloride (0.9% Saline Lock 10 Ml Syringe) 10 - 40 ml IV UD PRN PRN Reason: SALINE FLUSH STROKE Vital Signs/Narrative: Vital Signs Temp Pulse Resp BP Pulse Ox 10/12/20 08:27 98.1 F 74 14 147/72 H 94 10/12/20 07:28 98 10/12/20 05:58 70 Medical Necessity - Tobacco Use Smoking Status: Never smoker Tobacco Use: Non-smoker Assessment/Plan All Active Problems (Last Reviewed 01/20/20 @ 15:[address] 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 Angioedema-patient's tongue continues to be mildly swollen with decreased sensation on right side of tongue. Continue Benadryl, Zofran, and Solu-Medrol. Due to this being an ongoing issue I would recommend outpatient work-up with payer specialist. It was originally thought ramipril was the cause but patient has not been taking ramipril or any XANDER inhibitor for 3 months. 2. Essential hypertension-stable, continue home regimen. 3. Hyperlipidemia-continue atorvastatin. 4. Hypothyroidism?continue levothyroxine. DVT prophylaxis-Lovenox This patient was seen by IGOR Sheikh under the supervision of Dr. Hernandez.
[2020-10-12] MEDS: hydroCHLOROthiazide 25 MG Tablet PO (10:01)
[2020-10-12] MEDS: amLODIPine 10 MG Tablet PO (10:01)
[2020-10-12] MEDS: 0.9% Saline Lock 10 ML Syringe IV (10:04)
[2020-10-12] MEDS: Enoxaparin 40 MG/0.4 ML Syringe SC (10:13)
--- NOTE | 2020-10-12 10:51 | CASEMGMT ---
LW/POA forms are not on file. SW let pt know that documents are not on file and asked him to bring them in as able. Pt states understanding. RODOLFO Navarro
--- NOTE | 2020-10-12 11:13 | DCINST_ITS ---
- Discharge Diagnoses Current Active Problems: Current Active and Chronic Problems (Last Reviewed 01/20/20 @ 15:[address] 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) Essential (primary) hypertension (Chronic) Hyperlipidemia (Chronic) You will use the following diet at home:: Cardiac Your food should be the consistency of: Regular Your liquids should be the consistency of: Regular/Thin Discharge Activity: Return to Normal Activity Call your doctor if you observe: Numbness or Tingling, Shortness of breath, - - lip and/or tongue swelling Allergies/Adverse Reactions: Allergies ramipril Allergy (Severe, Verified 10/12/20 00:54) Angioedema Medications to take at Discharge Aspirin [Aspirin, Baby] 81 mg PO DAILY@0800 11/07/13 levothyroxine 50 mcg capsule 75 mcg PO DAILY 01/21/19 atorvastatin 10 mg tablet 10 mg PO QDAY #90 tab 05/07/20 amlodipine 10 mg tablet 10 mg PO DAILY #30 tab 08/27/20 hydrochlorothiazide 25 mg tablet 25 mg PO DAILY #60 tab 08/27/20 DiphenhydrAMINE [Benadryl] 25 mg PO BID PRN PRN #30 cap 10/12/20 Epinephrine [Epipen] 0.3 mg IJ X1 #2 auto.injct 10/12/20 Famotidine [Pepcid] 20 mg PO BID #30 10/12/20 Prednisone [Deltasone] See Taper PO DAILY #30 tab 10/12/20 The following prescriptions were given: DiphenhydrAMINE [Benadryl] 25 mg PO BID PRN PRN #30 cap PRN Reason: Angioedema Transmission Status: Pending to [id number] Prednisone [Deltasone] See Taper PO DAILY #30 tab Transmission Status: Pending to [id number] Epinephrine [Epipen] 0.3 mg IJ X1 #2 auto.injct Transmission Status: Pending to [id number] Famotidine [Pepcid] 20 mg PO BID #30 Primary Care Physician: Rigoberto Elise MD [Primary Care Provider] - Please follow up with your Primary Care Physician in: 1-2 weeks Test Results: Test results from this visit will be discussed in further detail at your follow- up appointment, if applicable.
--- NOTE | 2020-10-12 11:29 | PCM.DC.SUM ---
<Caryl Rodriguez - Last Filed: 10/12/20 11:29> Discharge Date and Diagnosis - Problem List Patient Problems: Active and Suspected Problems (Last Reviewed 01/20/20 @ 15:[address] Edd Berman MD) Angioedema (Acute) Date of Admission: 10/12/20 Date of Discharge: 10/12/20 - Primary Discharge Diagnosis Acute Problems: Active Problems (Last Reviewed 01/20/20 @ 15:[address] Edd Berman MD) Angioedema (Acute) - Secondary Discharge Diagnosis Chronic Problems: Chronic Problems (Last Reviewed 01/20/20 @ 15:[address] 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 This is the third episode of angioedema patient has had. Swelling and numbness tingling much improved with Benadryl, Pepcid, and steroids. We will continue steroid taper, as needed Benadryl, and scheduled Pepcid upon discharge. Patient will also be provided with a prescription for an EpiPen and encouraged to follow-up with a child protection specialist outpatient. Patient Problems: Active and Suspected Problems (Last Reviewed 01/20/20 @ 15:[address] Edd Berman MD) Angioedema (Acute) - Physical Exam Vitals/I&O's: Vital Signs Temp Pulse Resp BP Pulse Ox 98.1 F 74 14 147/72 H 94 10/12/20 08:27 10/12/20 08:27 10/12/20 08:27 10/12/20 08:27 10/12/20 08:27 Oxygen Delivery Method Room Air Weight: 173 lb 11.588 oz Body Mass Index (BMI) 25.6 Intake and Output for Last 24 Hours 10/10/20 10/11/20 10/12/20 23:59 23:59 23:59 Intake Total 140 / 140 Balance 140 / 140 General: Alert, Oriented x3, Cooperative HEENT: Atraumatic, PERRLA, EOMI, Normocephalic Oral: - - tongue mildly swollen, numbness and tingling to right side Neck: Supple, No JVD, Negative Carotid Bruits Lungs: Clear to auscultation, Normal air movement Cardiovascular: Regular rate, No murmurs Abdomen: Bowel Sounds Present, Soft, Non Tender Extremities: No edema, Capillary Refill Less than 3 Seconds Skin: No rashes, No breakdown Musculoskeletal: No Tenderness to Palpation of Joints or Extremities Neurological: Cranial nerves II-XII grossly intact Psych/Mental Status: Normal Affect, Appropriate Laboratory Results 10/12/20 00:50: WBC 7.3, RBC 4.54 L, Hgb 14.8, Hct 43.5, MCV 95.8 H, MCH 32.6 H, MCHC 34.0, RDW Std Deviation 45.1 H, RDW Coeff of Alfredo 12.8, Plt Count 257, MPV 10.1, Immature Gran % (Auto) 0.400, Neut % (Auto) 53.6, Lymph % (Auto) 30.4, [place] % (Auto) 11.4 H, Eos % (Auto) 3.7, Baso % (Auto) 0.5, Absolute Neuts (auto) 3.9, Absolute Lymphs (auto) 2.22, Nucleated RBC % 0 10/12/20 00:50: Sodium 139, Potassium 3.5, Chloride 103, Carbon Dioxide 33.0 H, Anion Gap 3 L, BUN 27 H, Creatinine 1.21, Estim Creat Clear Calc 47.60, Est GFR (MDRD) Af Amer 75, Est GFR (MDRD) Non-Af 62, BUN/Creatinine Ratio 22.3 H, Glucose 113 H, Calcium 9.1, Total Bilirubin 0.40, AST 26, ALT 30, Alkaline Phosphatase 117, Total Protein 8.0, Albumin 3.9, Globulin 4.1, Albumin/Globulin Ratio 1.0 Current Medications Amlodipine Besylate (Amlodipine 10 Mg Tablet) 10 mg PO DAILY [facility] Last Admin: 10/12/20 10:01 Dose: 10 mg Documented by: Aspirin (Aspirin 81 Mg Tab.Chew) 81 mg PO DAILY@0800 [facility] Last Admin: 10/12/20 08:10 Dose: 81 mg Documented by: Atorvastatin Calcium (Atorvastatin Calcium 10 Mg Tablet) 10 mg PO QHS [facility] Diphenhydramine HCl (Diphenhydramine 50 Mg/Ml Syringe) 25 mg IV Q6H PRN PRN PRN Reason: Angioedema Enoxaparin Sodium (Enoxaparin 40 Mg/0.4 Ml Syringe) 40 mg SC DAILY [facility] Last Admin: 10/12/20 10:13 Dose: 40 mg Documented by: Hydrochlorothiazide (Hydrochlorothiazide 25 Mg Tablet) 25 mg PO DAILY [facility] Last Admin: 10/12/20 10:01 Dose: 25 mg Documented by: Famotidine 20 mg/ Sodium (Chloride) 10 mls @ 300 mls/hr IV Q12 [facility] Last Infusion: 10/12/20 10:48 Dose: Infused Documented by: Levothyroxine Sodium (Levothyroxine 75 Mcg Tablet) 75 mcg PO DAILY@0600 [facility] Last Admin: 10/12/20 06:28 Dose: 75 mcg Documented by: Methylprednisolone (Methylprednisolone 40 Mg/Ml Vial) 40 mg IV Q8 [facility] Last Admin: 10/12/20 05:40 Dose: 40 mg Documented by: Ondansetron HCl (Ondansetron 4 Mg/2 Ml Vial) 4 mg IV Q8H PRN PRN PRN Reason: NAUSEA/VOMITING Sodium Chloride (0.9% Saline Lock 10 Ml Syringe) 10 - 40 ml IV UD PRN PRN Reason: SALINE FLUSH Last Admin: 10/12/20 10:04 Dose: 10 ml Documented by: Discharge Activity: Return to Normal Activity Call your doctor if you observe: Numbness or Tingling, Shortness of breath, - - lip and/or tongue swelling Home Medications: Medications to take at Discharge Aspirin [Aspirin, Baby] 81 mg PO DAILY@0800 11/07/13 levothyroxine 50 mcg capsule 75 mcg PO DAILY 01/21/19 atorvastatin 10 mg tablet 10 mg PO QDAY #90 tab 05/07/20 amlodipine 10 mg tablet 10 mg PO DAILY #30 tab 08/27/20 hydrochlorothiazide 25 mg tablet 25 mg PO DAILY #60 tab 08/27/20 DiphenhydrAMINE [Benadryl] 25 mg PO BID PRN PRN #30 cap 10/12/20 Epinephrine [Epipen] 0.3 mg IJ X1 #2 auto.injct 10/12/20 Famotidine [Pepcid] 20 mg PO BID #30 10/12/20 Prednisone [Deltasone] See Taper PO DAILY #30 tab 10/12/20 Following Prescriptions Were Given to Patient: DiphenhydrAMINE [Benadryl] 25 mg PO BID PRN PRN #30 cap PRN Reason: Angioedema Transmission Status: Received by [id number] Prednisone [Deltasone] See Taper PO DAILY #30 tab Transmission Status: Received by [id number] Epinephrine [Epipen] 0.3 mg IJ X1 #2 auto.injct Transmission Status: Received by [id number] Famotidine [Pepcid] 20 mg PO BID #30 Primary Care Physician: Rigoberto Elise MD [Primary Care Provider] - Please follow up with your Primary Care Physician in: 1-2 weeks Please Follow Up With: Manager Copy - Dr. Peterson or Dr. Bliss in [place] When: As soon as possible Medical Necessity - Tobacco Use Smoking Status: Never smoker Tobacco Use: Non-smoker Meaningful Use Info Meaningful Use Diagnoses (Choose all that apply): None applicable <Yemi Hernandez - Last Filed: 10/12/20 15:05> Discharge Date and Diagnosis - Primary Discharge Diagnosis Acute Problems: Active Problems (Last Reviewed 01/20/20 @ 15:[address] Edd Berman MD) Angioedema (Acute) - Secondary Discharge Diagnosis Chronic Problems: Chronic Problems (Last Reviewed 01/20/20 @ 15:[address] 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 Data reviewed. I agree with the above note by the nurse practitioner. The patient is a 75 year old M presents with angioedema. There is now the patient's third episode of angioedema. Previously was felt to be related with ReoPro which had been stopped. Another episode which did not seek attention for and then this episode. Began in the evening with a small pimple-like area on his tongue that progressed to quarter size and then he knew male it was can happen and sought attention. Patient received steroids, H1 and H2 blockers. Doing much better though his tongue is lower than but overall much better. Advised patient to continue with famotidine in the follow-up with allergy. Patient also be on a prednisone taper and patient would receive a prescription for epinephrine pen. Patient is inquiring about fishing trip for next month. I advised extreme caution as if he were to have bouts while he is on a boat that he should have all of his necessary supplies including his epinephrine pen, diphenhydramine. I did tell him to run by the people he is going on a trip with so that they would be aware and able to help out if able and to notify the charter captain of the boat to see if they be willing to accept the liability. Told him that he would probably be okay if he has no further events between now and then but I could not guarantee with 100% certainty. The patient does have recurrent bouts of angioedema in the interim, then I strongly advised against him going on his fishing trip. [] - Physical Exam Vitals/I&O's: Vital Signs Temp Pulse Resp BP Pulse Ox 36.7 C 87 14 147/72 H 94 10/12/20 08:27 10/12/20 11:33 10/12/20 08:27 10/12/20 08:27 10/12/20 08:27 Oxygen Delivery Method Room Air Weight: 78.8 kg Body Mass Index (BMI) 25.6 Intake and Output for Last 24 Hours 10/10/20 10/11/20 10/12/20 23:59 23:59 23:59 Intake Total 870 / 870 Balance 870 / 870 General: Alert, Cooperative HEENT: Atraumatic, Normocephalic Oral: - Lungs: Clear to auscultation, Normal air movement Cardiovascular: Regular rate, No murmurs Abdomen: Bowel Sounds Present, Soft, Non Tender Extremities: No edema, No Calf Tenderness Skin: No rashes, No breakdown Laboratory Results 10/12/20 00:50: WBC 7.3, RBC 4.54 L, Hgb 14.8, Hct 43.5, MCV 95.8 H, MCH 32.6 H, MCHC 34.0, RDW Std Deviation 45.1 H, RDW Coeff of Alfredo 12.8, Plt Count 257, MPV 10.1, Immature Gran % (Auto) 0.400, Neut % (Auto) 53.6, Lymph % (Auto) 30.4, [place] % (Auto) 11.4 H, Eos % (Auto) 3.7, Baso % (Auto) 0.5, Absolute Neuts (auto) 3.9, Absolute Lymphs (auto) 2.22, Nucleated RBC % 0 10/12/20 00:50: Sodium 139, Potassium 3.5, Chloride 103, Carbon Dioxide 33.0 H, Anion Gap 3 L, BUN 27 H, Creatinine 1.21, Estim Creat Clear Calc 47.60, Est GFR (MDRD) Af Amer 75, Est GFR (MDRD) Non-Af 62, BUN/Creatinine Ratio 22.3 H, Glucose 113 H, Calcium 9.1, Total Bilirubin 0.40, AST 26, ALT 30, Alkaline Phosphatase 117, Total Protein 8.0, Albumin 3.9, Globulin 4.1, Albumin/Globulin Ratio 1.0 Discharge Activity: Return to Normal Activity Call your doctor if you observe: Numbness or Tingling, Shortness of breath, - Disposition: Home Minutes spent on discharge:: 28 Patient Condition:: Good Medical Necessity - Tobacco Use Smoking Status: Never smoker Tobacco Use: Non-smoker Meaningful Use Info Meaningful Use Diagnoses (Choose all that apply): None applicable OBSV E&M: 43817 Observation care discharge
--- NOTE | 2020-10-12 12:24 | PHA.DC.MR ---
Pharmacy Service has performed discharge medication reconciliation for this patient. The patient's discharge medication list was reviewed for discrepancies and discrepancies were resolved. Home Medications Aspirin [Aspirin, Baby] 81 mg PO DAILY@0800 11/07/13 levothyroxine 50 mcg capsule 75 mcg PO DAILY 01/21/19 atorvastatin 10 mg tablet 10 mg PO QDAY #90 tab 05/07/20 amlodipine 10 mg tablet 10 mg PO DAILY #30 tab 08/27/20 hydrochlorothiazide 25 mg tablet 25 mg PO DAILY #60 tab 08/27/20 DiphenhydrAMINE [Benadryl] 25 mg PO BID PRN PRN #30 cap 10/12/20 Epinephrine [Epipen] 0.3 mg IJ X1 #2 auto.injct 10/12/20 Famotidine [Pepcid] 20 mg PO BID #30 10/12/20 Prednisone [Deltasone] See Taper PO DAILY #30 tab 10/12/20
--- NOTE | 2020-10-12 14:32 | NURSING ---
Late entry: Student nurse documentation reviewed.
== END 2020-10-12 11:32 | disposition home or self-care (01) ==
LOC: ED 04:15 → PCU 04:42
PROVIDERS: Admitting Provider Family Medicine; Emergency Provider Emergency Medicine; PCP Family Medicine
DX: T78.3XXA Angioneurotic edema, initial encounter (principal); I25.10 Atherosclerotic heart disease of native coronary artery without angina pectoris; I10 Essential (primary) hypertension; E78.5 Hyperlipidemia, unspecified; I45.10 Unspecified right bundle-branch block; Z95.5 Presence of coronary angioplasty implant and graft; Z79.899 Other long term (current) drug therapy; Z79.82 Long term (current) use of aspirin; E07.9 Disorder of thyroid, unspecified
CPT/HCPCS: 80053; 85025; 96365; 96366; 96372; 96375; 96376; 99218; 99285; J7030; A4216; G0378; J3490

== ENCOUNTER → 2020-10-13 09:17 | Outpatient (CLI) | payer MEDICARE, OTHER, SELFPAY ==
[2020-10-12 05:13] VITALS: BMI 25.6
[2020-10-16 04:07] LABS: Alternaria alternata <0.10 kU/L (Class 0); Aspergillus fumigatus <0.10 kU/L (Class 0); Bahia Grass <0.10 kU/L (Class 0); Beef <0.10 kU/L (Class 0); Bermuda Grass <0.10 kU/L (Class 0); Bluegrass, Kentucky <0.10 kU/L (Class 0); Cat Hair/Dander, Standard 0.23 kU/L (Class 0/I); Cedar, Mountain <0.10 kU/L (Class 0); Cladosporium herbarum <0.10 kU/L (Class 0); Cockroach, American <0.10 kU/L (Class 0); Corn <0.10 kU/L (Class 0); D farinae Mite <0.10 kU/L (Class 0); D pteronyssinus <0.10 kU/L (Class 0); Dog Epithelia <0.10 kU/L (Class 0); Egg, Whole <0.10 kU/L (Class 0); Elm, American White <0.10 kU/L (Class 0); Hazelnut Tree <0.10 kU/L (Class 0); Hickory, White <0.10 kU/L (Class 0); Johnson Grass <0.10 kU/L (Class 0); Maple/Box Elder <0.10 kU/L (Class 0); Milk (Cow) <0.10 kU/L (Class 0); Mucor racemosus <0.10 kU/L (Class 0); Mugwort <0.10 kU/L (Class 0); Mulberry, White <0.10 kU/L (Class 0); Nettle <0.10 kU/L (Class 0); Oak, White <0.10 kU/L (Class 0); Peanut <0.10 kU/L (Class 0); Penicillium chrysogen <0.10 kU/L (Class 0); Pigweed, Rough <0.10 kU/L (Class 0); Plantain, English <0.10 kU/L (Class 0); Pork <0.10 kU/L (Class 0); Ragweed, Short/Common <0.10 kU/L (Class 0); Sheep Sorrel(Dock) <0.10 kU/L (Class 0); Soybean <0.10 kU/L (Class 0); Stemphylium herbarum <0.10 kU/L (Class 0); Sweet Gum <0.10 kU/L (Class 0); Sycamore, American <0.10 kU/L (Class 0); Wheat <0.10 kU/L (Class 0)
[2020-10-16 09:27] LABS: Chocolate <0.10 kU/L (Class 0)
== END ==
PROVIDERS: PCP Family Medicine; Referring Provider Family Medicine; Visit Provider Family Medicine
DX: T78.3XXA Angioneurotic edema, initial encounter (principal)
CPT/HCPCS: 36415; 86003; 86005

== ENCOUNTER → 2020-10-15 09:11 | Outpatient (CLI) | payer MEDICARE, OTHER, SELFPAY ==
[2020-10-12 05:13] VITALS: BMI 25.6
[2020-10-15 10:23] LABS: Vitamin D,25 Hydroxy 25.4 ng/mL
[2020-10-18 15:45] LABS: C1 EST Inhibitor, Functional >100 (.)
== END ==
PROVIDERS: PCP Family Medicine; Visit Provider Specialist
DX: E55.9 Vitamin D deficiency, unspecified (principal); Z87.892 Personal history of anaphylaxis
CPT/HCPCS: 36415; 82306; 83520; 86160; 86161

== ENCOUNTER → 2020-12-13 06:06 | Outpatient (CLI) | payer MEDICARE, OTHER, SELFPAY ==
[2020-10-12 05:13] VITALS: BMI 25.6
[2020-12-13 07:32] LABS: Absolute Neutrophil Count 3.1 X10^3/uL (2.0-7.7); Basophil# 0.06 X10^3/uL; Eosinophil# 0.45 X10^3/uL; Eosinophils% 7.7 % (0-5); Hematocrit 41.6 % (40-54); Hemoglobin 14.1 g/dL (13.0-16.5); Lymphocyte % 25.8 % (19-41); Mean Corp Hgb Conc 33.9 g/dL (32-36); Mean Corpuscular Hgb 32.6 pg (27.0-32.0); Mean Corpuscular Volume 96.3 fL (80-94); Mean Platelet Vol. 10.6 fl (6.2-12.0); Monocyte# 0.67 X10^3/uL; Monocyte% 11.5 % (0-10); NRBC Flagged by Analyzer 0 % (0-5); Neutrophil # 3.12 X10^3/uL (2.7-7.7); Neutrophil % 53.8 % (47-70); Platelet Count 237 K/mm3 (150-450); RBC Distribution Width CV 13.1 % (11.6-14.6); RBC Distribution Width SD 46.6 fl (35.1-43.9); Red Blood Count 4.32 M/mm3 (4.6-6.2); White Blood Count 5.8 K/mm3 (4.4-11.0)
[2020-12-13 08:05] LABS: AST(SGOT) 22 U/L (15-37); Alanine Aminotransfer ALT/SGPT 23 U/L (16-61); Albumin, Serum 3.6 g/dL (3.2-5.0); Alkaline Phosphatase 89 U/L (45-117); Anion Gap 3 (5-15); BUN 26 mg/dL (7-18); BUN/Creat Ratio 23.4 RATIO (10-20); Calcium,Total 9.2 mg/dL (8.5-10.1); Chloride 104 mmol/L (98-107); Cholesterol 148 mg/dL (200); Creatinine, Serum 1.11 mg/dL (0.70-1.30); EST Glomerular Filtration Rate 69 mL/min (>60); Est Glom Filt Rate - Afr Amer 83 mL/min (>60); Globulin 3.7 g/dL (2.2-4.2); Glucose 100 mg/dL (74-106); High Density Lipoprotein 66 mg/dL; PSA,Total - Annual Screen 2.29 ng/mL (0.00-4.00); Potassium 3.4 mmol/L (3.5-5.1); Protein, Total 7.3 g/dL (6.4-8.2); Sodium Level 139 mmol/L (136-145); T4 Free Direct 1.06 ng/dL (0.76-1.46); Thyroid Stim Hormone (TSH) 2.39 uIU/mL (0.358-3.74); Triglycerides 76 mg/dL; Very Low Density Lipoprotein 15 mg/dL (5-40)
== END ==
PROVIDERS: PCP Family Medicine; Referring Provider Family Medicine; Visit Provider Family Medicine
DX: I10 Essential (primary) hypertension (principal); E78.5 Hyperlipidemia, unspecified; E03.9 Hypothyroidism, unspecified; Z12.5 Encounter for screening for malignant neoplasm of prostate
CPT/HCPCS: 36415; 80053; 80061; 84153; 84439; 84443; 85025; G0103

== ENCOUNTER 2021-01-11 09:00 | Outpatient (RCR) | payer MEDICARE, OTHER, SELFPAY ==
[2020-10-12 05:13] VITALS: BMI 25.6
--- NOTE | 2020-12-13 12:52 | HP.PTEVAL ---
Patient's Visit Information MESSI VILLA is a 75 year old M referred to Physical Therapy by Shawn Reeves PA-C with a diagnosis of CONTUSION OF SHLD AND SPRAIN OF R ROTATOR CUFF. Date of Evaluation: 12/13/20 Physical Therapist: Zulema Clinton, PT, Cert MDT - Visit Plan Frequency: 2-3x /Week Duration: 4-6 Weeks Plan: POSTURAL AND RIGHT UE ROM, STRETCHING AND STRENGTHENING TO MEET SET GOALS. - Subjective THIS PATIENT PRESENT TO PHYSICAL THERAPY WITH COMPLAINT OF INTERMITTENT R SHLD PAIN. HE REPORTS THAT THE LAST WEEK OF JUL 2020 HE SLIPPED AND FELL ON SOME ROCKS WHILE OUT BIRD WATCHING. HE REPORTS HE BROKE SOME RIBS AND APPARENTLY TORE HIS RIGHT ROTATOR CUFF. HE IS RIGHT HAND DOMINANT. HE REPORTS THAT HE DIDN'T EVEN REALIZE HIS SHOULDER WAS HURT UNTIL A FEW WEEKS AFTER THE FALL WHEN HIS RIB PAIN STARTED TO SUBSIDE. THE RIGHT SHOULDER IS GETTING BETTER. HE REPORTS HE HAS GOOD ROM IN HIS SHOULDER AND MAYBE SOME WEAKNESS BUT IT ISN'T RESTRICTING ANY OF HIS ACTIVITIES. THE PAIN RANGES FRO 0/10 TO 5/10. HE CAN'T HOWEVER WASH HIS BACK. HE STATES HE HAD A FOLOW UP WITH FRIEDA ELIZABETH AT 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 CONSULT FOR RCR PENDING 12/23/20 (NEXT SUNDAY) AND PATIENT REPORTS THE DOCTORS WANT HIM TO GO AHEAD WITH PHYSICAL THERAPY IN THE MEAN TIME. OTHER: PATIENT ALSO REPORTS INTERMITTENT RIGHT UE TINGLING DOWN HIS ARM TO HIS THUMB. PATIENT REPORTS HE DID NOT HIT HIS HEAD IN THE FALL. PATIENT STATES HE HATES TO MENTION IT BUT HE EVEN HAS SOME L SHOULDER SORENESS/PAIN. - Objective Sitting Posture/Standing Posture: POOR. Active Correction of posture: NE. Other Observations: INDEP GAIT AND TRANSFERS. PATIENT IS PLEASANT AND COOPERATIVE TO WORK WITH. 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 LEFT UE 5/5 WITH MMT'ING. RIGHT SHLD: FLEX 4-/5, ABD 4-/5, IR 4/5, ER 4-/5, ELBOW 5/5. Sensory deficit: YUN UE LIGHT TOUCH SENSATION INTACT AND SYMMETRICAL. ROM deficit: AROM OF RIGHT UE IS WFL EXCEPT HE IS UNABLE TO REACH BEHIND HIS BACK. SUPINE RIGHT SHLD PROM: [id number] DEG, ABD 150, IR/ER 70 DEG WITH 70 DEG ABD. ERP INTO IR IN SUPINE WITH PROM TESTING. ALSO ERP INTO FLEX AND ABD WITH PASSIVE TESTING IN SUPINE. Reflexes: YUN UE'S 2/3. Dural Signs: NEGATIVE YUN UE'S. Cervical Mvmt Loss: Flex: NIL. Pro: NIL. Ext: MIN. Ret: MOD. RSB: MOD. LSB: MOD. R Rot: MIN. L Rot: MIN. Postural strength: FAIR. Palpation: NO ACUTE NECK, UPPER T/S OR YUN SHOULDER TENDERNESS. TREATMENT: THER ACT - HEP INSTRUCTION. PHASE 3 SHOULDER PROGRAM WITH YTB. WRITTEN HEP INST PROVIDED. - Goals Goal 1:: DECREASE C/O R SHOULDER PAIN Goal Time Frame: 4-6 Weeks Goal 2:: IMPROVE R SHOULDER FUNCTIONAL ROM TO EASE ADL'S (WASHING BACK) Goal Time Frame: 4-6 Weeks Goal 3:: IMPROVE R SHOULDER FUNCTIONAL STRENGTH TO EASE ADL'S Goal Time Frame: 4-6 Weeks Goal 4:: ABIMAELTENT WILL BE INDEP WITH A HEP FOR CONTINUED IMPROVEMENT ONCE FORMAL PHYSICAL THERAPY CONCLUDES. Goal Time Frame: 4-6 Weeks - Anticipated Interventions Patient/Client Instruction: Educate patient on: Condition, Plan of Care, Risk Factors, Benefits of Fitness Program For the Purpose of:: To improve self management Therapeutic Exercise to Include: Strength training, Body mechanics, Postural training, Flexibilty training, Neuromotor development, Passive ROM, Active ROM, Scapular Strength/Stabilization For the Purpose of:: To decrease pain, To increase ROM, To improve muscle performance and motor function, To increase tolerance to activity/condition/position, To improve ability of physical actions for home/community/work/leisure Thank you for the opportunity to evaluate your patient. For Medicare and Medicare HMO plans, please review the plan of care and approve it. It will need to be FAXED BACK to us at [phone] for Medicare purposes. For Medicare only, by signing this I certify the plan of care. Please let me know if there are questions or concerns regarding this plan of care. Physician Signature: Date:
--- NOTE | 2021-01-11 09:30 | HP.PTDCSUM ---
It has been my pleasure to treat MESSI VILLA referred by Shawn Reeves PA-C, with the diagnosis of CONTUSION OF SHLD AND SPRAIN OF R ROTATOR CUFF for a total of 6 visit(s). Discharge Date: Please see the following information for a summary of their discharge status. Subjective: PATIENT REPORTS HE SCHEDULED HIS SURGERY WITH DR. CLINTON FOR FEBRUARY 03 2021. LEAVING FOR VACATION FOR 10 DAYS NOW. HEP IS GOING GOOD. PATIENT REPORTS THAT PT HAS BEEN WORTH WHILE AND THERE IS NO QUESTIONS ABOUT THAT BUT IT DIDN'T HELP THE PAIN. R SHOULDER Pain Intensity (Out of 10): 2 % Improvement: 30 Objective/Function: PATIENT WAS SEEN TODAY FOR RE-ASSESSMENT OF PROGRESS TOWARD THE SET PT GOALS AND THE NEED FOR FURTHER PHYSICAL THERAPY VS READINESS FOR DISCHARGE. PATIENT IS NOW INDEP WITH A HEP FOR PREHAB BUT HIS PAIN AND DYSFUNCTION IS NOT GETTING BETTER. HE IS APPROPRIATE FOR DISCHARGE. SURGERY PENDING. PATIENT AGREEABLE. UPON EXAM TODAY: ROM deficit: AROM OF RIGHT UE IS WFL EXCEPT HE IS UNABLE TO REACH BEHIND HIS BACK AND ERP. SUPINE RIGHT SHLD PROM: [id number] DEG, ABD 150, IR/ER 50/60 DEG WITH 80 DEG ABD. ERP INTO IR AND ER IN SUPINE WITH PROM TESTING. ALSO ERP INTO FLEX AND ABD WITH PASSIVE TESTING IN SUPINE. Goal 1:: DECREASE C/O R SHOULDER PAIN Goal Progress: Not Progressing Goal 2:: IMPROVE R SHOULDER FUNCTIONAL ROM TO EASE ADL'S (WASHING BACK) Goal Progress: Not Progressing Goal 3:: IMPROVE R SHOULDER FUNCTIONAL STRENGTH TO EASE ADL'S Goal Progress: Not Progressing Goal 4:: ABIMAELTENT WILL BE INDEP WITH A HEP FOR CONTINUED IMPROVEMENT ONCE FORMAL PHYSICAL THERAPY CONCLUDES. Goal Progress: Not Progressing Plan: POSTURAL AND RIGHT UE ROM, STRETCHING AND STRENGTHENING TO MEET SET GOALS. If there are questions or concerns regarding this patient's physical therapy, please feel free to call me at [phone]. Thank you for the referral of this patient. Sincerely, Zulema Clinton, PT, Cert MDT
== END 2021-01-11 19:00 | disposition home or self-care (01) ==
LOC: PT 09:00
PROVIDERS: PCP Family Medicine; Referring Provider Physician Assistant Surgical; Visit Provider Physician Assistant Surgical
DX: S43.421D Sprain of right rotator cuff capsule, subsequent encounter (principal); S40.011D Contusion of right shoulder, subsequent encounter
CPT/HCPCS: 97110; 97162; 97164; 97530

== ENCOUNTER 2021-05-16 09:00 | Outpatient (RCR) | payer MEDICARE, OTHER, SELFPAY ==
--- NOTE | 2021-03-25 16:05 | HP.PTEVAL ---
Patient's Visit Information MESSI VILLA is a 75 year old M referred to Physical Therapy by Dr. Misael Clinton MD with a diagnosis of RIGHT LARGE ROTATOR CUFF REPAIR AND BICEPS TENODESIS.. Date of Evaluation: 03/25/21 Physical Therapist: Zulema Clinton PT, Cert MDT - Visit Plan Frequency: 2-3x /Week Duration: 3 Months Plan: RIGHT ROTATOR CUFF REPAIR AND BICEPS TENODESIS REHAB PER PROTOCOL IN WORK ROOM. - Subjective Diagnosis: Work/Leisure: RETIRED. Present symptoms: TWINGES OF PAIN IN SHLD/BICEPT AREA. NO NUMBNESS OR TINGLING. OTHERWISE PAINFREE. Present since: JUL 2020. Pain Scale: Worst - 2/10 Least - 0/10. Currently: 0/10. Commenced as a result of: FALL. Worse: CERTAIN UNKNOWN MVMTS. Better: NOT MOVING SHLD. Disturbed sleep: YES - SLEEPING IN RECLINER UNTIL ABOUT A WEEK AGO. Previous history/Previous treatment: PT. This episode: SURGERY 02/03/21 - DR. CLINTON - COMPLETE ROTATOR CUFF TEAR OR RUPTURE OF R SHLD - RIGHT LARGE ROTATOR CUFF REPAIR AND BICEPS TENDESIS. Dizziness: NO. Tinnitis: NO. Nausea: NO. Shortness of Breath: NO. Difficulty Swollowing: NO. Gait: NORMAL. Accidents: FALL JUL 2020. Unexplained weight loss: NO. Imaging: NONE SINCE SURGERY. PMH/Recent major surgery: CARDIAC STENT ABOUT 7 YEARS AGO. HTN. H/O BACK PAIN. PLOF (Prior Level of Function): UNLIMITED. OTHER: PATIENT REPORTS THE SURGEON TOLD HIM IT WAS WORSE THAN HE THOUGHT WHEN HE GOT IN THERE. PATIENT DENIES ANY COMPLICATIONS WITH THE SURGERY. STATES SURGEON TOOK PILLOW OFF OF SLING A WEEK AGO AND STATES HE WAS TOLD HE CAN TAKE THE SLING OFF IN ONE MORE WEEK. - Objective THIS PATIENT AMBULATES INDEP'LY INTO PHYSICAL THERAPY WITH NO GROSS DEVIATIONS NOTED WEARING A SLING ON THE RIGHT UE BUT ACTIVELY MOVING HIS SHOULDER IN IT. HE HAS PASSIVE RIGHT SHLD FLEX TO 103 DEG AND PASSIVE ER TO 18 DEG. TREATED PATIENT WITH PROM INTO FLEX AND ER TODAY PER PROTOCOL IN PAINFREE ROM. INSTRUCTED CAREGIVER () IN PASSIVE ROM AND SHE RETURN DEMO'D GOOD TECHNIQUE. ALSO INSTRUCTED PATIENT IN PASSIVE CW AND CCW PENDULUM EX AND HE DEMO'D GOOD TECHNIQUE. - Balance/Special Test Scores Quick DASH Score: 61.3625 - Goals Goal 1:: INCREASE FUNCTIONAL ROM OF RIGHT UE TO EASE ADL'S WITHIN LIMITS OF PROTOCOL PROVIDED BY DR. CLINTON Goal Time Frame: 8-12 Weeks Goal 2:: INCREASE FUNCTIONAL STRENGTH OF RIGHT UE TO EASE ADL'S WITHIN LIMITS OF PROTOCOL PROVIDED BY DR. CLINTON Goal Time Frame: 8-12 Weeks Goal 3:: PATIENT WILL BE INDEP WITH [facility] FOR CONTINUED IMPROVEMENT ONCE FORMAL PHYSICAL THERAPY CONCLUDES. Goal Time Frame: 8-12 Weeks - Anticipated Interventions Patient/Client Instruction: Educate patient on: Condition, Plan of Care, Risk Factors For the Purpose of:: To improve self management Therapeutic Exercise to Include: Strength training, Postural training, Neuromotor development, Passive ROM, Active ROM, Scapular Strength/Stabilization For the Purpose of:: To decrease pain, To increase ROM, To improve muscle performance and motor function, To increase tolerance to activity/condition/position, To improve ability of physical actions for home/community/work/leisure Thank you for the opportunity to evaluate your patient. For Medicare and Medicare HMO plans, please review the plan of care and approve it. It will need to be FAXED BACK to us at [phone] for Medicare purposes. For Medicare only, by signing this I certify the plan of care. Please let me know if there are questions or concerns regarding this plan of care. Physician Signature: Date:
--- NOTE | 2021-04-25 12:54 | HP.PTREVAL ---
Dr. Misael Conti MD, It has been my pleasure to treat MESSI VILLA over the last 11 visits for RIGHT LARGE ROTATOR CUFF REPAIR AND BICEPS TENODESIS.. Please see the progress note below for an update on the physical therapy plan of care! Subjective: PATIENT REPORTS HIS SHLD IS MUCH BETTER. STATES THE ONLY RESIDUAL ISSUE SINCE SURGERY IS A LITTLE SORENESS IN HIS BICEPS. STATES HE IS SLEEPING VERY WELL NOW. STATES THAT HE DOES AVOID SLEEPING ON HIS RIGHT SIDE THOUGH. REACHING BEHIND BACK IS A LITTLE DIFFICULT AND UNCOMFORTABLE - OTHERWISE HE FEELS HIS ROM IS GOOD. PATIENT REPORTS HE FEELS LIKE HE LUCKED OUT TO HAVE SUCH A GOOD OUTCOME. STATES HE IS VERY PLEASED. Objective/Function: PATIENT WAS SEEN TODAY FOR RE-ASSESSMENT OF PROGRESS TOWARD THE SET PT GOALS AND THE NEED FOR FURTHER PHYSICAL THERAPY VS READINESS FOR DISCHARGE. PATIENT IS MAKING GOOD PROGRESS TOWARD ALL PT GOALS AND IS A GOOD CANDIDATE TO CONTINUE PT BASED ON PROGRESS MADE AND ROOM FOR FURTHER IMPROVEMENT. PATIENT IS AGREEABLE. UPON EXAM TODAY PATIENT IS MOST NOTEABLY LIMITED RIGHT SHLD ROM ALL PLANES. HIS FUNCTIONAL STRENGTH WITHIN THE RANGE HE HAS IS GOOD AND IMPROVING. HIS RIGHT GOODWILL AMBASSADOR STRENGTH IS GOOD ALSO AT AT LEAST 80 LBS. RIGHT SHLD ROM IN SUPINE ACTIVE ASSISTIVELY IS 160 DEG FLEX, 140 DEG ABD, IR 50 DEG AND ER 56 DEG (ROTATIONS MEASURED WITH 90 DEG ABD). RIGHT SHLD STRENGTH 4/5 MID-RANGE. RE-INFORCEMENT GIVEN FOR ALL CURRENT HOME INSTRUCTIONS AND PATIENTS QUESTIONS ANSWERED. PATIENT COMMUNICATED A GOOD UNDERSTANDING OF ALL INSTRUCTIONS AFTER GIVEN. Plan Plan: CONTINUE PT 2X'S A WEEK X 3 WEEKS FOR *MANUAL THERAPY* TO INCREASE ROM IN PAINFREE RANGE ONLY. PROGRESS THER EX TOLERATED AVOIDING PAIN. OK TO DO STATIC OR REPETATIVE STRETCHING. PATIENT AGREEABLE WITH THIS POC. Per new Orders, Phase I, II, and III and HEP. RIGHT ROTATOR CUFF REPAIR AND BICEPS TENODESIS REHAB PER PROTOCOL IN WORK ROOM. DOS: 02/03/21 Balance/Gait/Functional tests - Balance/Special Test Scores Quick DASH Score: 4.5450 Goals Goal 1:: INCREASE FUNCTIONAL ROM OF RIGHT UE TO EASE ADL'S WITHIN LIMITS OF PROTOCOL PROVIDED BY DR. CONTI Goal Time Frame: 8-12 Weeks Goal Progress: Progressing Goal 2:: INCREASE FUNCTIONAL STRENGTH OF RIGHT UE TO EASE ADL'S WITHIN LIMITS OF PROTOCOL PROVIDED BY DR. CONTI Goal Time Frame: 8-12 Weeks Goal Progress: Progressing Goal 3:: PATIENT WILL BE INDEP WITH HEP FOR CONTINUED IMPROVEMENT ONCE FORMAL PHYSICAL THERAPY CONCLUDES. Goal Time Frame: 8-12 Weeks Goal Progress: Progressing Anticipated Interventions Patient/Client Instruction: Educate patient on: Condition, Plan of Care, Risk Factors For the Purpose of:: To improve self management Therapeutic Exercise to Include: Strength training, Postural training, Neuromotor development, Passive ROM, Active ROM, Scapular Strength/Stabilization For the Purpose of:: To decrease pain, To increase ROM, To improve muscle performance and motor function, To increase tolerance to activity/condition/position, To improve ability of physical actions for home/community/work/leisure Please do not hesitate to contact me at [phone] by phone or if you have questions or concerns regarding this new plan of care! Sincerely, Zulema Clinton, PT, Cert MDT
--- NOTE | 2021-05-16 11:56 | HP.PTDCSUM_ITS ---
It has been my pleasure to treat MESSI VILLA referred by Dr. Misael Clinton MD, with the diagnosis of RIGHT LARGE ROTATOR CUFF REPAIR AND BICEPS TENODESIS. for a total of 17 visit(s). Discharge Date: 05/16/21 Please see the following information for a summary of their discharge status. Subjective: PATIENT REPORTS THE BIGGEST PROBLEM HE HAS IS A VERY HIGH STRETCH WITH THE RIGHT ARM LIKE PUTTING DISHES AWAY IN THE CUBBOARD ON THE TOP SHELF AND REACHING BEHIND HIS BACK. ABOUT 50% OF THE TIME FRONT OF THE RIGHT SHOULDER IS SORE. PATIENT REPORTS THAT IF HE DOESN'T IMPROVE ANYMORE HE IS GOING TO BE JUST FINE. HE REPORTS HE HAS RESUMED ALL OF HIS UPPER BODY WEIGHT ROUTINE IN THE GYM NOW TOO. RIGHT SHLD PAIN IS INTERMITTENT BUT RIGHT NOW DOES HAVE A LITTLE BIT OF PAIN POST INDEP EX ROUTINE. R SH Pain Intensity (Out of 10): 1 % Improvement: 95 Objective/Function: PATIENT WAS SEEN TODAY FOR RE-ASSESSMENT OF PROGRESS TOWARD THE SET PT GOALS AND THE NEED FOR FURTHER PHYSICAL THERAPY VS READINESS FOR DISCHAREGE. ALL GOALS HAVE BEEN MET. PATIENT HAS MADE GREAT PROGRESS WITH PT AND IS A GOOD CANDIDATE FOR DISCHARGE TO INDEP EX AT THIS TIME. PATIENT IS AGREEABLE. UPON EXAM TODAY PATIENT IS MOST NOTEABLY LIMITED IN R SHLD ABD ROM. HIS FUNCTIONAL STRENGTH WITHIN THE RANGE HE HAS ALL PLANES IS GOOD. RIGHT SHLD ROM IN SUPINE ACTIVE ASSISTIVELY IS 169 DEG FLEX, 142 DEG ABD, IR 65 DEG AND ER 65 DEG (ROTATIONS MEASURED WITH 90 DEG ABD). REVIEWED INDEP EX INSTRUCTIONS AND ANSWERED PATIENTS QUESTIONS. ADDED WALL SLIDES INTO STRAIGHT ABD IN ADDITION TO THE FLEXION AND SCAPTION HE HAS BEEN DOING. Goal 1:: INCREASE FUNCTIONAL ROM OF RIGHT UE TO EASE ADL'S WITHIN LIMITS OF PROTOCOL PROVIDED BY DR. CLINTON Goal Progress: Goal Met Goal 2:: INCREASE FUNCTIONAL STRENGTH OF RIGHT UE TO EASE ADL'S WITHIN LIMITS OF PROTOCOL PROVIDED BY DR. CLINTON Goal Progress: Goal Met Goal 3:: PATIENT WILL BE INDEP WITH [facility] FOR CONTINUED IMPROVEMENT ONCE FORMAL PHYSICAL THERAPY CONCLUDES. Goal Progress: Goal Met Plan: D/C TO INEP EX. PATIENT AGREEABLE. If there are questions or concerns regarding this patient's physical therapy, please feel free to call me at [phone]. Thank you for the referral of this patient. Sincerely, Zulema Clinton, PT, Cert MDT Balance/Gait/Functional tests - Balance/Special Test Scores Quick DASH Score: [phone]
== END 2021-05-16 19:00 | disposition home or self-care (01) ==
LOC: PT 09:00
PROVIDERS: PCP Family Medicine; Referring Provider Orthopaedic Surgery; Visit Provider Orthopaedic Surgery
DX: M75.121 Complete rotator cuff tear or rupture of right shoulder, not specified as traumatic (principal)
CPT/HCPCS: 97110; 97140; 97162; 97164; 97530

== ENCOUNTER → 2021-06-13 16:47 | Outpatient (CLI) | payer MEDICARE, OTHER, SELFPAY ==
[2021-06-13 18:06] LABS: Absolute Lymphocyte Count 1.85 X10^3/uL (0.83-4.51); Absolute Neutrophil Count 4.1 X10^3/uL (2.0-7.7); Basophil# 0.04 X10^3/uL; Basophil% 0.6 % (0-1); Eosinophil# 0.21 X10^3/uL; Eosinophils% 3.1 % (0-5); Hematocrit 43.3 % (40-54); Hemoglobin 14.6 g/dL (13.0-16.5); Lymphocyte # 1.85 X10^3/ul (0.83-4.51); Lymphocyte % 27.5 % (19-41); Mean Corp Hgb Conc 33.7 g/dL (32-36); Mean Corpuscular Hgb 31.7 pg (27.0-32.0); Mean Corpuscular Volume 94.1 fL (80-94); Mean Platelet Vol. 10.5 fl (6.2-12.0); Monocyte# 0.55 X10^3/uL; Monocyte% 8.2 % (0-10); NRBC Flagged by Analyzer 0 % (0-5); Neutrophil # 4.06 X10^3/uL (2.7-7.7); Neutrophil % 60.5 % (47-70); Platelet Count 237 K/mm3 (150-450); RBC Distribution Width CV 12.8 % (11.6-14.6); RBC Distribution Width SD 44.3 fl (35.1-43.9); White Blood Count 6.7 K/mm3 (4.4-11.0)
[2021-06-13 18:54] LABS: Vitamin D,25 Hydroxy 45.5 ng/mL
[2021-06-13 19:01] LABS: ALB/GLOB Ratio 0.8 RATIO (0.9-2.4); AST(SGOT) 23 U/L (15-37); Alanine Aminotransfer ALT/SGPT 25 U/L (16-61); Albumin, Serum 3.5 g/dL (3.2-5.0); Alkaline Phosphatase 89 U/L (45-117); Anion Gap 7 (5-15); BUN 25 mg/dL (7-18); BUN/Creat Ratio 22.1 RATIO (10-20); Calcium,Total 8.9 mg/dL (8.5-10.1); Chloride 101 mmol/L (98-107); Cholesterol 132 mg/dL (200); Creatinine, Serum 1.13 mg/dL (0.70-1.30); EST Glomerular Filtration Rate 67 mL/min (>60); Est Glom Filt Rate - Afr Amer 81 mL/min (>60); Globulin 4.2 g/dL (2.2-4.2); Glucose 90 mg/dL (74-106); High Density Lipoprotein 58 mg/dL; Potassium 3.6 mmol/L (3.5-5.1); Protein, Total 7.7 g/dL (6.4-8.2); Sodium Level 138 mmol/L (136-145); T4 Free Direct 1.06 ng/dL (0.76-1.46); Triglycerides 72 mg/dL; Very Low Density Lipoprotein 14 mg/dL (5-40)
== END ==
PROVIDERS: PCP Family Medicine; Referring Provider Family Medicine; Visit Provider Family Medicine
DX: I10 Essential (primary) hypertension (principal); E55.9 Vitamin D deficiency, unspecified; E03.9 Hypothyroidism, unspecified
CPT/HCPCS: 36415; 80053; 80061; 82306; 84439; 84443; 85025

== ENCOUNTER 2021-09-29 17:42 | Outpatient (CLI) | payer MEDICARE, OTHER, SELFPAY | END 2021-09-29 23:59 | disposition home or self-care (01) | PROVIDERS: PCP Family Medicine; Visit Provider Nurse Practitioner Family | DX: R39.9 Unspecified symptoms and signs involving the genitourinary system (principal) | CPT/HCPCS: 87077; 87086; 87088; 87186 ==

== ENCOUNTER 2021-11-09 08:41 | Outpatient (CLI) | payer MEDICARE, OTHER, SELFPAY ==
--- NOTE | 2021-11-09 08:49 | RAD_ITS ---
EXAM: XR LUMBOSACRAL SPINE, 2 OR 3 VIEWS CLINICAL INDICATION: INTERVERTEBRAL DISC DISPLACEMENT, LUMBAR REGION TECHNIQUE: Frontal and lateral views of the lumbar spine and sacrum. This report was created using [employer] report generation technology. COMPARISON: 12/01/2019 FINDINGS: VERTEBRAE: No acute or healing fracture or malalignment. No unusual lytic or sclerotic lesions of bone. No spondylolisthesis. Preservation of the normal lumbar lordosis. No significant facet arthropathy. DISC SPACES: Mild to moderate degenerative disc disease at L3-4. Mild disease at the other levels. VASCULATURE: Vascular calcifications in the pelvis. GASTROINTESTINAL TRACT: Stool throughout the colon. Included bowel gas pattern is non-obstructive. RAD/Lumbar Spine 2 or 3 Views IMPRESSION: 1. Mild to moderate degenerative disc disease at L3-4. 2. No acute fracture or malalignment. Electronically Signed: Cristian Mendieta MD at 4:46 EDT ,
== END 2021-11-09 23:59 | disposition home or self-care (01) ==
LOC: RAD 08:45
PROVIDERS: PCP Family Medicine; Referring Provider Anesthesiology Pain Medicine; Visit Provider Anesthesiology Pain Medicine
DX: M51.26 Other intervertebral disc displacement, lumbar region (principal)
CPT/HCPCS: 72100

== ENCOUNTER → 2021-11-23 | Outpatient (CLI) | payer MEDICARE, OTHER, SELFPAY | END | disposition home or self-care (01) | PROVIDERS: PCP Family Medicine; Referring Provider Nurse Practitioner Family; Visit Provider Nurse Practitioner Family | DX: R39.9 Unspecified symptoms and signs involving the genitourinary system (principal) | CPT/HCPCS: 87077; 87086; 87088; 87186 ==

== ENCOUNTER → 2021-12-05 | Outpatient (CLI) | payer MEDICARE, OTHER, SELFPAY ==
--- NOTE | 2021-12-05 13:16 | MRI_ITS ---
STUDY: MRI LUMBAR SPINE WITHOUT CONTRAST REASON FOR EXAM: Male, 76 years old. RADICULOPATHY TECHNIQUE: Standardized fat and water weighted pulse sequences were obtained in the sagittal and axial planes. COMPARISON: X-ray the lumbar spine dated NOVEMBER 09, 2021 FINDINGS: Normal lumbar lordosis. There is a dextroscoliosis of the lumbar spine. Normal conus medullaris that terminates at the T12-L1 level. T12-L1: Normal endplates. Normal disc height, hydration and morphology. Normal bilateral facet joints. Normal central canal and bilateral lateral recesses. Normal bilateral intervertebral neural foramina. L1-2: Diffuse disc desiccation with mild disc space narrowing and annular bulging. Mild anterior endplate spurring. Normal bilateral facet joints. Normal central canal and bilateral lateral recesses. Normal bilateral intervertebral neural foramina. Retrolisthesis of L1 on L2 of no more than 2 mm. L2-3: Normal endplates. Diffuse disc desiccation and mild to moderate asymmetric disc space narrowing with a diffuse disc bulge. Retrolisthesis of L2 on L3 of 3 mm. A large right paracentral/foraminal junction inferior subligamentous disc extrusion is present measuring 9.2 mm in diameter contribute into right lateral recess stenosis and compression of descending nerve root. A second shallow inferior subligamentous disc extrusion is present in the left paracentral region measuring 6 mm in diameter. Mild to moderate facet joint and ligament of flava hypertrophy contributes to mild to moderate central canal stenosis and bilateral lateral recess stenosis with nerve root compression. Mild bilateral foraminal stenosis. L3-4: Moderate endplate degenerative signal and disc space narrowing with a diffuse disc osteophyte complex. Prominent Schmorl''s node change of the superior endplate of L4. Mild facet joint and ligament of flava hypertrophy contributing to mild central canal stenosis. Normal bilateral lateral recesses. Normal bilateral intervertebral neural foramina. Slight retrolisthesis of L3 on L4 of less than 2 mm. L4-5: Mild to moderate disc space narrowing with a diffuse disc spur complex and superimposed midline shallow disc protrusion. Mild facet joint hypertrophy. Mild central canal stenosis. Normal bilateral lateral recesses. Mild bilateral foraminal stenosis. L5-S1: Normal endplates. Diffuse disc desiccation and mild posterior disc space narrowing with a shallow midline disc protrusion and annular tear. Mild facet joint hypertrophy. Normal central canal and bilateral lateral recesses. Normal bilateral intervertebral neural foramina. Normal visualized sacral ala. Normal visualized paraspinous soft tissue structures. MRI/Spine Lumbar (Routine) IMPRESSION: 1. Multilevel degenerative changes, as described above. 2. Mild to moderate central canal stenosis from L2-L3 down to L4-L5 3. Right and left paracentral disc extrusions at L2-L3 contributing to bilateral lateral recess stenosis with nerve root compression Electronically Signed: Rogelio England MD at 10:29 EDT ,
== END | disposition home or self-care (01) ==
PROVIDERS: PCP Family Medicine; Visit Provider Anesthesiology Pain Medicine
DX: M54.16 Radiculopathy, lumbar region (principal)
CPT/HCPCS: 72148

== ENCOUNTER → 2022-03-14 | Outpatient (CLI) | payer MEDICARE, OTHER, SELFPAY ==
[2022-03-14 07:22] LABS: Bacteria 0 SEEN /hpf (None Seen); Mucous, Urine 0 SEEN /hpf (<or=2+); Red Blood Cells-Urine 0 SEEN /hpf (0-5); Squamous Epithelial Cells - UA 0 SEEN /hpf (0-5)
[2022-03-14 08:12] LABS: Absolute Lymphocyte Count 1.62 X10^3/uL (0.83-4.51); Absolute Neutrophil Count 2.8 X10^3/uL (2.0-7.7); Basophil# 0.02 X10^3/uL; Basophil% 0.4 % (0-1); Eosinophils% 3.8 % (0-5); Hematocrit 44.5 % (40-54); Lymphocyte # 1.62 X10^3/ul (0.83-4.51); Lymphocyte % 31.1 % (19-41); Mean Corp Hgb Conc 33.7 g/dL (32-36); Mean Corpuscular Hgb 32.3 pg (27.0-32.0); Mean Corpuscular Volume 95.7 fL (80-94); Mean Platelet Vol. 10.6 fl (6.2-12.0); Monocyte% 11.5 % (0-10); NRBC Flagged by Analyzer 0 % (0-5); Neutrophil # 2.76 X10^3/uL (2.7-7.7); Platelet Count 221 K/mm3 (150-450); RBC Distribution Width CV 13.2 % (11.6-14.6); RBC Distribution Width SD 46.3 fl (35.1-43.9); Red Blood Count 4.65 M/mm3 (4.6-6.2); White Blood Count 5.2 K/mm3 (4.4-11.0)
[2022-03-14 08:13] LABS: Color, Urine Yellow (Yellow); Glucose, Dipstick Normal (Normal); Ketone-Dipstick Negative (Negative); Leukocyte Esterase-Dipstick 100 /ul (Negative); Nitrite-Dipstick Negative (Negative); Occult Blood-Urine Negative /ul (Negative); Protein-Dipstick Negative (Negative); Urine Bilirubin Dipstick Negative (Negative); Urine Clarity Clear (Clear); Urine Urobilinogen Normal (Normal)
[2022-03-14 08:29] LABS: White Blood Cells 5-10 SEEN /hpf (0-5)
[2022-03-14 08:40] LABS: Vitamin D,25 Hydroxy 46.2 ng/mL
[2022-03-14 08:44] LABS: ALB/GLOB Ratio 0.9 RATIO (0.9-2.4); AST(SGOT) 25 U/L (15-37); Alanine Aminotransfer ALT/SGPT 25 U/L (16-61); Albumin, Serum 3.6 g/dL (3.2-5.0); Alkaline Phosphatase 81 U/L (45-117); Anion Gap 5 (5-15); BUN 24 mg/dL (7-18); BUN/Creat Ratio 18.9 RATIO (10-20); Calcium,Total 9.2 mg/dL (8.5-10.1); Chloride 103 mmol/L (98-107); Cholesterol 126 mg/dL (200); Creatinine, Serum 1.27 mg/dL (0.70-1.30); EST Glomerular Filtration Rate 59 mL/min (>60); Est Glom Filt Rate - Afr Amer 71 mL/min (>60); Glucose 104 mg/dL (74-106); High Density Lipoprotein 54 mg/dL; Potassium 3.7 mmol/L (3.5-5.1); Protein, Total 7.6 g/dL (6.4-8.2); Sodium Level 140 mmol/L (136-145); T4 Free Direct 1.06 ng/dL (0.76-1.46); Triglycerides 76 mg/dL; Very Low Density Lipoprotein 15 mg/dL (5-40)
== END | disposition home or self-care (01) ==
LOC: LAB 07:18
PROVIDERS: PCP Family Medicine; Referring Provider Family Medicine; Visit Provider Family Medicine
DX: I10 Essential (primary) hypertension (principal); E03.9 Hypothyroidism, unspecified; E55.9 Vitamin D deficiency, unspecified
CPT/HCPCS: 80053; 80061; 81001; 82306; 84439; 84443; 85025

== ENCOUNTER → 2022-03-16 | Outpatient (CLI) | payer MEDICARE, OTHER, SELFPAY ==
--- NOTE | 2022-03-16 08:53 | CDU_ITS ---
Reason For Study: dizzy Rt. Velocities/BP Lt. Velocities/BP Prox CCA 73.4/8.2 cm/sec. Prox CCA 87.7/10.8 cm/sec. Mid CCA 65.6/14.7 cm/sec. Mid CCA 86.4/12.1 cm/sec. Dist CCA 70.8/8.2 cm/sec. Dist CCA 70.8/13.4 cm/sec. Prox ICA 49.9/10.8 cm/sec. Prox ICA 72.1/9.5 cm/sec. Mid ICA 59.1/14.7 cm/sec. Mid ICA 63.0/14.7 cm/sec. Dist ICA 66.9/16.0 cm/sec. Dist ICA 81.2/20.0 cm/sec. Rt. ICA/CCA = 1.0. Lt. ICA/CCA = .9. Prox ECA 86.5/8.2 cm/sec. Prox ECA 109.9/9.5 cm/sec. Rt. Vert. 46.0/9.5 cm/sec. Lt. Vert. 55.1/13.4 cm/sec. Right Extracranial There is intimal thickening but no significant atherosclerotic plaque noted in the right common carotid artery. There is intimal thickening but no significant atherosclerotic plaque noted in the right internal carotid artery. There is intimal thickening but no significant atherosclerotic plaque noted in the right external carotid artery. Antegrade flow is noted in the right vertebral artery. Left Extracranial There is intimal thickening but no significant atherosclerotic plaque noted in the left common carotid artery. There is intimal thickening but no significant atherosclerotic plaque noted in the left internal carotid artery. There is intimal thickening but no significant atherosclerotic plaque noted in the left external carotid artery. Antegrade flow is noted in the left vertebral artery. Procedure Carotid Duplex [id number]. This is a Carotid Duplex examination using B-mode, color flow and specral Doppler. The exam was diagnostic. Exam performed in department. VL/Carotid Duplex Ultrasound Interpretation Summary Intimal thickening right common carotid artery and proximal internal carotid ar margo with less than 50% stenosis Less than 50% stenosis right external carotid artery Intimal thickening left proximal internal carotid artery with less than 50% alex nosis Less than 50% stenosis left external carotid artery Patent antegrade vertebral arteries bilaterally No change from the previous examination of November 08, 2009 Ordering Physician: Tila Caldwell Performed By: Sunday Valentin RVT
== END | disposition home or self-care (01) ==
LOC: CVS 08:51
PROVIDERS: PCP Family Medicine; Referring Provider Nurse Practitioner Gerontology; Visit Provider Nurse Practitioner Gerontology
DX: R42 Dizziness and giddiness (principal)
CPT/HCPCS: 93880

== ENCOUNTER → 2022-03-29 | Outpatient (CLI) | payer MEDICARE, OTHER, SELFPAY ==
[2022-03-29 08:17] LABS: Hemoglobin A1c 5.8 % (3.8-5.6)
[2022-03-29 08:21] LABS: Anion Gap 4 (5-15); BUN 22 mg/dL (7-18); BUN/Creat Ratio 18.3 RATIO (10-20); Calcium,Total 9.2 mg/dL (8.5-10.1); Chloride 105 mmol/L (98-107); EST Glomerular Filtration Rate 62 mL/min (>60); Est Glom Filt Rate - Afr Amer 76 mL/min (>60); Glucose 98 mg/dL (74-106); Potassium 3.6 mmol/L (3.5-5.1); Sodium Level 139 mmol/L (136-145)
== END | disposition home or self-care (01) ==
LOC: LAB 07:19
PROVIDERS: PCP Family Medicine; Referring Provider Family Medicine; Visit Provider Family Medicine
DX: R94.4 Abnormal results of kidney function studies (principal); R73.09 Other abnormal glucose
CPT/HCPCS: 36415; 80048; 83036

== ENCOUNTER → 2022-07-14 | Outpatient (CLI) | payer MEDICARE, OTHER, SELFPAY ==
[2022-07-14 08:17] LABS: Absolute Neutrophil Count 2.7 X10^3/uL (2.0-7.7); Basophil# 0.04 X10^3/uL; Basophil% 0.8 % (0-1); Eosinophils% 3.9 % (0-5); Hematocrit 42.1 % (40-54); Hemoglobin 14.8 g/dL (13.0-16.5); Lymphocyte % 32.9 % (19-41); Mean Corp Hgb Conc 35.2 g/dL (32-36); Mean Corpuscular Hgb 33.2 pg (27.0-32.0); Mean Corpuscular Volume 94.4 fL (80-94); Monocyte# 0.51 X10^3/uL; Monocyte% 9.9 % (0-10); NRBC Flagged by Analyzer 0 % (0-5); Neutrophil % 52.3 % (47-70); Platelet Count 217 K/mm3 (150-450); RBC Distribution Width CV 12.9 % (11.6-14.6); RBC Distribution Width SD 44.5 fl (35.1-43.9); Red Blood Count 4.46 M/mm3 (4.6-6.2); White Blood Count 5.2 K/mm3 (4.4-11.0)
[2022-07-14 08:47] LABS: Vitamin D,25 Hydroxy 39.9 ng/mL
[2022-07-14 08:52] LABS: Hemoglobin A1c 5.9 % (3.8-5.6)
[2022-07-14 08:54] LABS: ALB/GLOB Ratio 0.9 RATIO (0.9-2.4); AST(SGOT) 23 U/L (15-37); Alanine Aminotransfer ALT/SGPT 24 U/L (16-61); Albumin, Serum 3.5 g/dL (3.2-5.0); Alkaline Phosphatase 80 U/L (45-117); Anion Gap 3 (5-15); BUN 24 mg/dL (7-18); BUN/Creat Ratio 20.9 RATIO (10-20); Calcium,Total 8.8 mg/dL (8.5-10.1); Chloride 106 mmol/L (98-107); Cholesterol 125 mg/dL (200); Creatinine, Serum 1.15 mg/dL (0.70-1.30); EST Glomerular Filtration Rate 66 mL/min (>60); Est Glom Filt Rate - Afr Amer 79 mL/min (>60); Globulin 3.9 g/dL (2.2-4.2); Glucose 103 mg/dL (74-106); High Density Lipoprotein 56 mg/dL; Potassium 3.8 mmol/L (3.5-5.1); Protein, Total 7.4 g/dL (6.4-8.2); Sodium Level 140 mmol/L (136-145); T4 Free Direct 1.07 ng/dL (0.76-1.46); Thyroid Stim Hormone (TSH) 3.77 uIU/mL (0.358-3.74); Triglycerides 65 mg/dL; Very Low Density Lipoprotein 13 mg/dL (5-40)
== END | disposition home or self-care (01) ==
LOC: LAB 07:51
PROVIDERS: PCP Family Medicine; Referring Provider Family Medicine; Visit Provider Family Medicine
DX: I25.10 Atherosclerotic heart disease of native coronary artery without angina pectoris (principal); R73.09 Other abnormal glucose; E03.9 Hypothyroidism, unspecified; E55.9 Vitamin D deficiency, unspecified
CPT/HCPCS: 36415; 80053; 80061; 82306; 83036; 84439; 84443; 85025

== ENCOUNTER → 2022-10-16 | Outpatient (CLI) | payer MEDICARE, OTHER, SELFPAY ==
[2022-10-16 08:01] LABS: T4 Free Direct 1.01 ng/dL (0.76-1.46); Thyroid Stim Hormone (TSH) 5.64 uIU/mL (0.358-3.74)
[2022-10-16 08:13] LABS: Vitamin D,25 Hydroxy 50.5 ng/mL
[2022-10-16 08:43] LABS: Hemoglobin A1c 5.7 % (3.8-5.6)
== END | disposition home or self-care (01) ==
LOC: LAB 07:16
PROVIDERS: PCP Family Medicine; Referring Provider Family Medicine; Visit Provider Family Medicine
DX: R73.02 Impaired glucose tolerance (oral) (principal); E03.9 Hypothyroidism, unspecified; E55.9 Vitamin D deficiency, unspecified
CPT/HCPCS: 36415; 82306; 83036; 84439; 84443

== ENCOUNTER → 2023-01-19 | Outpatient (CLI) | payer MEDICARE, OTHER, SELFPAY | END | disposition home or self-care (01) | LOC: LAB 07:41 | PROVIDERS: PCP Family Medicine; Referring Provider Family Medicine; Visit Provider Family Medicine | DX: N40.0 Benign prostatic hyperplasia without lower urinary tract symptoms (principal) | CPT/HCPCS: 36415; 84153; G0103 ==

== ENCOUNTER 2023-04-06 13:30 | Outpatient (RCR) | payer MEDICARE, OTHER, SELFPAY ==
--- NOTE | 2023-03-13 11:28 | HP.PTEVAL_ITS ---
Patient's Visit Information Visit Information Visit Information: MESSI VILLA is a 77 year old M referred to Physical Therapy by Shawn Reeves PA-C with a diagnosis of L Shoulder Pain, Contusion and Sprain. Date of Evaluation: 03/13/23 Physical Therapist: Zulema Clinton PT, Cert MDT Visit Plan Frequency: 2x /Week Duration: 4-6 Weeks Plan: *CHECK AND RECORD INSURANCE INFO* L SHLD ROM, STRETCHING AND STRENGTHENING TO HELP MEET SET GOALS. HEP AND GYM EX PROGRAM INSTRUCTION - ASSESS PATIENTS CURRENT EX PROGRAM FOR SAFETY AND effectiveness. Subjective Subjective: Diagnosis: L Shld Pain Work/Leisure: Retired Present symptoms: Intermittent Left Lateral Upper arm pain. Denies Left UE numbness or tingling. Denies Neck Pain. Present since: October 2022 Pain Scale: Worst - 2/10 Least - 0/10 Currently: 08/08 Commenced as a result of: Patient reports pulling garlic mustard October 2022. Crawled up hill, reached up and slipped. Rolled down hill about 6-8 feet and hurt left shld and right leg. Worse: Reaching up to second shelf to get a glass, Putting towel behind back to dry back. Lying on L side in bed. Better: Stop aggravating activity. Tylonol. Disturbed sleep: No Previous history/Previous treatment: Unremarkable This episode: [facility] PA consult. Dizziness: No Tinnitis: No Nausea: No Shortness of Breath: No Difficulty Swollowing: No Gait: Normal. Recent R LE sciatica Sx's but its fine . Unexplained weight loss: No Imaging: Recent L Shld x-ray's - 100% normal per patient report. MRI possibly suggested but going to start with PT. Patient reports he might consider MRI upon follow up with PA in about 6 wks. Other: PATIENT REPORTS RESTING HIS ARM THEN ABLE TO RESUME LIGHT TO REGULAR WEIGHTS IN GYM WITH [facility] HERE AT [place] OVER THE LAST 3 WKS OR SO WITHOUT INCREASED PAIN. 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 RS'S Other Observations: INDEP GAIT AND TRANSFERS. PATIENT IS PLEASANT AND COOPERATIVE Sensory deficit: YUN UE LIGHT TOUCH SENSATION GROSSLY INTACT AND SYMMETRICAL ROM deficit: L SHLD AROM IN STANDING: FLEX 171 DEG, ABD 170 DEG. SUPINE AAROM: FLEXION 166 DEG, ABD 151 DEG, IR FULL, ER FULL. PATIENT C/O MILD ERP WITH SUPINE L SHLD TESTING INTO ABD AND IR. Motor deficit: YUN UE'S GROSSLY 5/5 EXCEPT L SHLD 4/5. PATIENT IS R HAND DOMINANT WITH A RIGHT CLINICAL FIELD SPECIALIST STRENGTH OF 95 LBS AND LEFT 80 LBS. Postural strength: FAIR Balance/Special Test Scores Quick DASH Score: 6.8175 Goals Goal 1:: DECREASE C/O L SHLD PAIN Goal Time Frame: 4-6 Weeks Goal 2:: INCREASE FUNCTIONAL ROM OF L SHLD TO EASE ADL'S Goal Time Frame: 4-6 Weeks Goal 3:: IMPROVE L SHLD FUNCTIONAL STRENGTH TO EASE ADL'S Goal Time Frame: 4-6 Weeks Goal 4:: PATIENT WILL BE INDEP WITH A HEP/GYM EX PROGRAM FOR CONTINUED IMPROVEMENT ONCE FORMAL PHYSICAL THEARPY CONCLUDES. Goal Time Frame: 4-6 Weeks Anticipated Interventions Patient/Client Instruction: Educate patient on: Condition, Plan of Care and Risk Factors For the Purpose of:: To improve self management Therapeutic Exercise to Include: Strength training, Body mechanics, Postural training, Flexibilty training, Neuromotor development and Scapular Strength/Stabilization For the Purpose of:: To decrease pain, To increase ROM, To improve muscle performance and motor function, To increase tolerance to activity/condition/position and To improve ability of physical actions for home/community/work/leisure Text: Thank you for the opportunity to evaluate your patient. For Medicare and Medicare HMO plans, please review the plan of care and approve it. It will need to be FAXED BACK to us at [phone] for Medicare purposes. For Medicare only, by signing this I certify the plan of care. Please let me know if there are questions or concerns regarding this plan of care. Physician Signature: Date:
== END 2023-04-06 19:00 | disposition home or self-care (01) ==
LOC: PT 13:30
PROVIDERS: PCP Family Medicine; Referring Provider Physician Assistant Surgical; Visit Provider Physician Assistant Surgical
DX: M25.512 Pain in left shoulder (principal); S40.012D Contusion of left shoulder, subsequent encounter; S43.492D Other sprain of left shoulder joint, subsequent encounter
CPT/HCPCS: 97110; 97161

== ENCOUNTER → 2023-05-08 | Outpatient (CLI) | payer MEDICARE, OTHER, SELFPAY ==
[2023-05-08 08:20] LABS: Absolute Lymphocyte Count 1.46 X10^3/uL (0.83-4.51); Absolute Neutrophil Count 4.1 X10^3/uL (2.0-7.7); Basophil# 0.05 X10^3/uL; Basophil% 0.8 % (0-1); Eosinophil# 0.18 X10^3/uL; Eosinophils% 2.8 % (0-5); Hematocrit 45.3 % (40-54); Hemoglobin 15.3 g/dL (13.0-16.5); Lymphocyte # 1.46 X10^3/ul (0.83-4.51); Lymphocyte % 22.8 % (19-41); Mean Corp Hgb Conc 33.8 g/dL (32-36); Mean Corpuscular Hgb 32.6 pg (27.0-32.0); Mean Corpuscular Volume 96.6 fL (80-94); Mean Platelet Vol. 10.3 fl (6.2-12.0); Monocyte% 9.4 % (0-10); NRBC Flagged by Analyzer 0 % (0-5); Neutrophil % 63.9 % (47-70); Platelet Count 247 K/mm3 (150-450); RBC Distribution Width CV 13.2 % (11.6-14.6); RBC Distribution Width SD 46.5 fl (35.1-43.9); Red Blood Count 4.69 M/mm3 (4.6-6.2); White Blood Count 6.4 K/mm3 (4.4-11.0)
[2023-05-08 09:02] LABS: Hemoglobin A1c 5.6 % (3.8-5.6)
[2023-05-08 09:06] LABS: ALB/GLOB Ratio 0.9 RATIO (0.9-2.4); AST(SGOT) 21 U/L (15-37); Alanine Aminotransfer ALT/SGPT 33 U/L (16-61); Albumin, Serum 3.7 g/dL (3.2-5.0); Alkaline Phosphatase 91 U/L (45-117); Anion Gap 4 (5-15); BUN 23 mg/dL (7-18); BUN/Creat Ratio 19.7 RATIO (10-20); Calcium,Total 9.1 mg/dL (8.5-10.1); Chloride 103 mmol/L (98-107); Cholesterol 136 mg/dL (200); Creatinine, Serum 1.17 mg/dL (0.70-1.30); EST Glomerular Filtration Rate 64 mL/min (>60); Est Glom Filt Rate - Afr Amer 78 mL/min (>60); Globulin 3.9 g/dL (2.2-4.2); Glucose 108 mg/dL (74-106); High Density Lipoprotein 63 mg/dL; Potassium 3.5 mmol/L (3.5-5.1); Protein, Total 7.6 g/dL (6.4-8.2); Sodium Level 139 mmol/L (136-145); Thyroid Stim Hormone (TSH) 2.51 uIU/mL (0.358-3.74); Triglycerides 73 mg/dL; Very Low Density Lipoprotein 15 mg/dL (5-40)
[2023-05-08 09:11] LABS: Vitamin D,25 Hydroxy 41.9 ng/mL
== END | disposition home or self-care (01) ==
LOC: LAB 07:48
PROVIDERS: PCP Family Medicine; Referring Provider Family Medicine; Visit Provider Family Medicine
DX: I10 Essential (primary) hypertension (principal); E55.9 Vitamin D deficiency, unspecified; R73.02 Impaired glucose tolerance (oral)
CPT/HCPCS: 36415; 80053; 80061; 82306; 83036; 84443; 85025

== ENCOUNTER → 2023-05-14 | Outpatient (CLI) | payer MEDICARE, OTHER, SELFPAY | END | disposition home or self-care (01) | LOC: PSN 09:19 | PROVIDERS: PCP Family Medicine; Referring Provider Nurse Practitioner Gerontology; Visit Provider Nurse Practitioner Gerontology | DX: R00.1 Bradycardia, unspecified (principal) | CPT/HCPCS: 93225; 93226 ==

== ENCOUNTER → 2023-06-06 | Outpatient (CLI) | payer MEDICARE, OTHER, SELFPAY ==
--- NOTE | 2023-06-06 12:54 | ECHOD_ITS ---
Reason For Study: Ventricular Premature Depolarization Procedure This was a 2D Doppler, Color Flow transthoracic echocardiogram. Exam performed in department. Left Ventricle Normal size and thickness. Left ventricular systolic function is normal. The estimated ejection fraction is 60 %. Stage 1 diastolic dysfunction. No regional wall motion abnormalities noted. Right Ventricle Normal RV size. Normal systolic function. Atria Normal left atrium. Normal right atrium. Bubble contrast study negative for right to left interatrial shunt. Mitral Valve Normal mitral valve. Mild (1+) eccentric mitral valve insufficiency. Tricuspid Valve Normal tricuspid valve. Mild tricuspid valve insufficiency. Pulmonary artery systolic pressure is 34 mmHg. Aortic Valve Trisinus/trileaflet aortic valve. Pulmonic Valve Normal pulmonic valve. Great Vessels Mildly dilated aortic root. The pulmonary artery is normal size. Normal inferior vena cava. Pericardium/Pleural No pericardial effusion. Medication 22 gauge I.V. with prn adaptor inserted into right arm. Performed a rapid injection of agitated mix of 9 cc saline and 1cc air to assess for atrial septal defect. MMode/2D Measurements & Calculations LVIDd: 5.7 cm IVSd: 1.1 cm Ao root diam: 3.9 cm LVIDs: 4.0 cm LVPWd: 0.71 cm LA dimension: 4.2 cm RVDd: 3.3 cm FS: 30.0 % LAV(MOD-bp): 72.5 ml LA A4 area: 18.7 cm2 RA A4 area: 15.8 cm2 LAV(MOD-bp) Indexed: 37.0 ml/m2 LAV(MOD-sp2): 78.0 ml LAV(MOD-sp4): 58.1 ml TAPSE: 1.9 cm Time Measurements MV dec time: 0.36 sec Doppler Measurements & Calculations MV E max isidro: 44.2 cm/sec MV V2 max: 123.4 cm/sec MV P1/2t max isidro: 79.6 cm/sec MV A max isidro: 99.1 cm/sec MV max P.1 mmHg MV P1/2t: 181.3 msec MV E/A: 0.45 MV V2 mean: 64.6 cm/sec MV dec slope: 128.5 cm/sec2 MV mean P.9 mmHg MV V2 VTI: 33.4 cm MVA(P1/2t): 1.2 cm2 Ao V2 max: 129.0 cm/sec AI max isidro: 362.2 cm/sec LV V1 max: 84.1 cm/sec Ao max P.7 mmHg AI max P.4 mmHg LV V1 max P.8 mmHg Ao V2 mean: 83.5 cm/sec AI dec slope: 181.2 cm/sec2 LV V1 mean P.6 mmHg Ao mean P.3 mmHg AI P1/2t: 585.5 msec LV V1 mean: 57.7 cm/sec Ao V2 VTI: 33.2 cm LV V1 VTI: 23.5 cm AV (velocity ratio): 0.71 MR max isidro: 502.0 cm/sec PA V2 max: 80.6 cm/sec TR max isidro: 275.1 cm/sec MR max P.8 mmHg TR max P.3 mmHg ECHO/Echo Complete Interpretation Summary Normal size and thickness. Left ventricular systolic function is normal. The estimated ejection fraction is 60 %. Stage 1 diastolic dysfunction. Bubble contrast study negative for right to left interatrial shunt. Ordering Physician: Tila Caldwell Referring Physician: Rigoberto Elise Performed By: Tu Carrington RCS
== END | disposition home or self-care (01) ==
PROVIDERS: PCP Family Medicine; Referring Provider Nurse Practitioner Gerontology; Visit Provider Nurse Practitioner Gerontology
DX: I49.3 Ventricular premature depolarization (principal); R00.2 Palpitations
CPT/HCPCS: 93306

== ENCOUNTER → 2023-10-09 | Outpatient (CLI) | payer MEDICARE, OTHER, SELFPAY ==
--- NOTE | 2023-10-09 17:28 | RAD_ITS ---
STUDY: X-RAY CHEST REASON FOR EXAM: Male, 78 years old. acute bronchitis TECHNIQUE: PA and lateral views of the chest. COMPARISON: None. FINDINGS: The lungs are clear and expanded. There is no demonstrated pleural abnormality. Normal size heart. Normal mediastinum and kimani. Normal visualized pulmonary arteries. Normal visualized aortic arch and descending thoracic aorta. Normal visualized thoracic spine. Normal visualized ribs, clavicles, and shoulders. There is no demonstrated abnormality of the visualized soft tissue structures of the upper abdomen. RAD/Chest PA and Lateral IMPRESSION: Normal x-ray examination of the chest. Electronically Signed: Avery Florentino MD at 23:39 EDT ,
== END | disposition home or self-care (01) ==
LOC: MTRAD 17:27
PROVIDERS: PCP Family Medicine; Referring Provider Family Medicine; Visit Provider Family Medicine
DX: J20.9 Acute bronchitis, unspecified (principal)
CPT/HCPCS: 71046

== ENCOUNTER 2023-10-11 09:19 | Emergency (ER) | payer MEDICARE, OTHER, SELFPAY ==
[2023-10-11] VITALS (7 sets, daily range): BP systolic 130–175; BP diastolic 71–86; PULSE 57–80; RESP 14–22; TEMP 36.4–36.8; O2SAT 94–99; BMI 26.5
--- NOTE | 2023-10-11 10:23 | EDS_ITS ---
HPI History of Present Illness Chief Complaint: Sore Throat [facility] Medical History (Updated 10/11/23 @ 14:[address] 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 Home Medications aspirin 81 mg chewable tablet 81 mg PO DAILY@0800 heart [facility] 11/07/13 [History Last Taken Unknown] cholecalciferol (vitamin D3) 50 mcg (2,000 unit) capsule 100 mcg PO DAILY 02/09/22 [History Last Taken Unknown] levothyroxine 88 mcg tablet 100 mcg PO DAILY 02/22/23 [History Last Taken Unknown] amlodipine 5 mg tablet 5 mg PO DAILY #90 tabs 08/07/23 [Rx Last Taken Unknown] atorvastatin 10 mg tablet 10 mg PO QDAY #90 tabs 08/31/23 [Rx Last Taken Unknown] hydrochlorothiazide 25 mg tablet 25 mg PO DAILY #90 tabs 08/31/23 [Rx Last Taken Unknown] prednisone 20 mg tablet 20 mg PO DAILY #5 tabs 10/11/23 [Rx Last Taken Unknown] Allergy/AdvReac Type Severity Reaction Status Date / Time ramipril Allergy Severe Angioedema Verified 10/11/23 09:21 Family History Father CAD (coronary artery disease) cabg Mother , age 60 Pancreatic cancer Surgical History History of coronary artery stent placement (12/05/13) History of excision of pilonidal cyst History of left heart catheterization (10/2013) History of repair of left rotator cuff History of repair of right rotator cuff History of tonsillectomy Social History Smoking Status: Never smoker alcohol intake: current alcohol intake frequency: holidays/special occasions only Alcohol type: beer and wine substance use type: does not use caffeine: No EXAM Physical Exam Const Vital Signs: 10/11/23 09:21 10/11/23 10:20 10/11/23 11:00 Temperature 98.3 F Temperature Source Temporal Pulse Rate 58 L 57 L 59 L Respiratory Rate 14 18 18 Blood Pressure 158/71 H 154/73 H 131/82 H Blood Pressure Mean 100 100 98 Pulse Ox 94 96 96 Oxygen Delivery Method Room Air Room Air Room Air Oxygen Flow Rate (L/min) 10/11/23 12:00 10/11/23 12:16 10/11/23 13:35 Temperature Temperature Source Pulse Rate 80 61 69 Respiratory Rate 18 18 19 H Blood Pressure 130/80 H 175/77 H 172/84 H Blood Pressure Mean 96 109 113 Pulse Ox 97 99 94 Oxygen Delivery Method Nasal Cannula Room Air Room Air Oxygen Flow Rate (L/min) 3 10/11/23 14:23 Temperature 97.6 F L Temperature Source Pulse Rate 64 Respiratory Rate 22 H Blood Pressure 156/86 H Blood Pressure Mean 109 Pulse Ox 95 Oxygen Delivery Method Oxygen Flow Rate (L/min) MDM MDM MDM Narrative Medical decision making narrative: HISTORY OF PRESENT ILLNESS: 78-year-old male presents with concern for shortness of breath and difficulty swallowing. Notes fullness in his posterior oropharynx. Notes recent bout of bronchitis which he was taking azithromycin for. The patient denies recent surgery in the last 4 weeks or immobilization in the last 3 days, denies previous diagnosis of DVT or PE, hemoptysis, unilateral leg swelling or malignancy with treatment the last 6 months or palliative. No estrogen use noted. REVIEW OF SYSTEMS: Pertinent positives: Sore throat, difficulty swallowing, shortness of breath Pertinent negatives: PHYSICAL EXAM: Nursing triage notes reviewed, Vital signs reviewed Constitutional: please see mdm HENT: MMM, no stridor, no trismus, no pooling secretions, posterior oropharynx clear however it looks a bit edematous, hot potato voice noted Eyes: Pupils equal round and reactive to light, Extraocular muscles intact Neck: No stridor, no JVD, full neck ROM Lungs: Clear to auscultation, No wheezing or rales. No increased work of breathing, no conversational dyspnea, no accessory muscle use, no nasal flaring. No respiratory distress noted Heart: Regular rate and rhythm, No murmurs, No rubs and No gallops, 2+ distal pulses (radial, femoral, posterior tibial) in all extremities Abdomen: Soft, there is no tenderness, rigidity, rebound or guarding, no obvious peritoneal signs, no palpable pulsatile abdominal masses, no auscultated abdominal bruit : No CVAT Extremities: No edema Neuro: No focal neurological deficits, cranial nerves II through XII intact, 5/5 strength in all extremities. Intact sensation to light touch in all extremities, 2+ reflexes bilateral patella tendons. Normal gait. No ataxia. Skin: No rash or lesions noted MEDICAL DECISION MAKING: Chief Complaint: Shortness of breath, difficulty External records reviewed: Last ED evaluation 2020 for angioedema. Echocardiogram from 2022 shows ejection fraction 60% Factors affecting care: CAD, hypertension, hyperlipidemia, coronary stent Social determinants of health: none History obtained from others: The patient's Consults: none [facility] Narrative: Patient was hemodynamically stable, afebrile, nontoxic-appearing. The patient was not hypoxic. He was not requiring supplemental oxygen. There is no posterior oropharyngeal swelling. There is no obvious exudates. No signs of hives, wheezing or abdominal discomfort to suggest anaphylaxis. Patient does have remote history of angioedema. I considered the following differential diagnosis: Angioedema, deep neck space infection, peritonsillar abscess, allergic reaction I obtained a broad lab and imaging workup to further elucidate the etiology patient complaint specifically a contrasted CT scan of the neck I gave anti-inflammatories including Decadron and Toradol. ALL IMAGES (IF OBTAINED) HAVE BEEN PERSONALLY REVIEWED AND INTERPRETED BY MYSELF. CT scan shows no evidence of deep neck space infection Strep PCR negative CBC without leukocytosis to suggest ascending inflammation or infection, no severe anemia or thrombocytopenia BMP without evidence of significant electrolyte abnormalities, no anion gap, no acute kidney injury. The synthesis the patient history, physical exam, labs images suggest no acute life-limiting etiology. This may be related to angioedema. Patient was observed for 6 hours in the ED with no progression of symptoms. No airway compromise. Patient appropriate discharge home with course of prednisone and instructions to take antihistamines. The patient and/or family, caregivers express understanding. The patient and/or family, caregivers agrees with the plan. Shared decision making: I will have a discussion with the patient and or visitors regarding risk/benefits of further testing or admission. They will be made aware of of the risk/benefits inherent in this decision they will be given the opportunity to voice understanding. Total critical care time today provided was at least 0 minutes. This excludes separately billable procedures. Critical care time (if documented) is secondary to the patient having high probability of clinically significant/life threatening deterioration in the patient's condition which required my urgent intervention. Impression: 1. Angioedema Dispo: Discharge home This note was generated with [employer] dictation software. It may contain incorrect words, spelling, and punctuation that were not noted in review of the chart prior to signing. Lab Data Labs: Laboratory Results - last 24 hr 10/11/23 09:50 WBC 7.4 RBC 4.46 L Hgb 14.6 Hct 43.2 MCV 96.9 H MCH 32.7 H MCHC 33.8 RDW Std Deviation 46.5 H RDW Coeff of Alfredo 12.8 Plt Count 204 MPV 10.4 Immature Gran % (Auto) 0.100 Neut % (Auto) 70.7 H Lymph % (Auto) 14.3 L Hood % (Auto) 11.1 H Eos % (Auto) 3.5 Baso % (Auto) 0.3 Absolute Neuts (auto) 5.2 Absolute Lymphs (auto) 1.05 Nucleated RBC % 0 Sodium 138 Potassium 3.7 Chloride 100 Carbon Dioxide 32.0 Anion Gap 6 BUN 21 H Creatinine 1.18 Estim Creat Clear Calc 51.59 Est GFR (MDRD) Af Amer 77 Est GFR (MDRD) Non-Af 63 BUN/Creatinine Ratio 17.8 Glucose 157 H Calcium 9.1 Radiography Diagnostic Testing: Clinical Impression(s) from Imaging Studies Soft Tissue Neck CT 10/11/23 11:06 IMPRESSION: Maxillary and ethmoid sinusitis. Thickening of the posterior soft palate as well as the lingula. Electronically Signed: Eric Callahan MD at 13:58 EDT , Discharge Plan Triage Chief Complaint: Sore Throat ED Provider: Barrie Pike Dx/Rx/DC Orders Clinical Impression: Angioedema Instructions: ED Angioedema Prescriptions: New prednisone 20 mg tablet 20 mg PO DAILY Qty: 5 0RF No Action cholecalciferol (vitamin D3) 50 mcg (2,000 unit) capsule 100 mcg PO DAILY levothyroxine 88 mcg tablet 100 mcg PO DAILY Patient Comments: TAKE 1 TABLET BY MOUTHAONCE DAILY hydrochlorothiazide 25 mg tablet 25 mg PO DAILY Qty: 90 3RF atorvastatin 10 mg tablet 10 mg PO QDAY Qty: 90 3RF aspirin 81 MG tablet,chewable 81 mg PO DAILY@0800 amlodipine 5 mg tablet 5 mg PO DAILY Qty: 90 4RF Primary Care Provider: Rigoberto Elise Referrals: Rigoberto Elise MD [Primary Care Provider] - Activity Restrictions/Additional Instructions: Thank you for trusting us with your care today! Please take Tylenol (2 pills, 650 mg), ibuprofen (2 pills, 400 mg) every 6 hours as needed for pain and fever control. Please take prednisone as prescribed. Please go to local pharmacy or drugstore and obtain Pepcid and Zyrtec. Please take 1 pill of each daily for the next 5 days Please return to the emergency department if your symptoms change or worsen. Specifically develop difficulty swallowing, drooling, feeling of closure of your throat, loud upper airway noises (inspiratory stridor), blue discoloration, increased work of breathing, shortness of breath or chest pain. Please follow with your primary care physician for further outpatient evaluation and management. Disposition Disposition: Home, Self Care Discharge Date/Time: 10/11/23 14:44
--- NOTE | 2023-10-11 11:06 | CT_ITS ---
STUDY: CT SOFT TISSUE NECK WITH CONTRAST REASON FOR EXAM: Male, 78 years old. Sore throat, swelling RADIATION DOSAGE (If Supplied By Facility): CTDIvol = ( 1552 ) mGy, DLP = ( 422.50 ) mGycm TECHNIQUE: The patient was scanned in a multi-detector CT scanner. High resolution transaxial imaging was performed following intravenous administration of 100 CC ISOVUE 300. Sagittal and coronal images were reconstructed. Individualized dose optimization techniques were used for this CT. COMPARISON: None. FINDINGS: Normal bilateral parotid glands. Normal bilateral knotting machine operator spaces. Normal bilateral parapharyngeal spaces. Normal bilateral carotid spaces. Normal bilateral sublingual and submandibular glands and spaces. There is thickening of the soft palate as well as the lingula. There is narrowing of the nasal airway at that site. Normal retropharyngeal space. Normal perivertebral space. Normal visualized bilateral faucial tonsils. The visualized tongue, tongue base and oropharynx are normal. The visualized cervical lymph nodes (levels I-) are within normal size limits, and maintain normal morphology. There is no demonstrated solid or cystic mass lesion. There is no abnormal contrast enhancement. Normal epiglottis, bilateral vallecula and hypopharynx. The pre-epiglottic and paraglottic adipose spaces are normal. Normal visualized bilateral piriform sinuses, aryepiglottic folds, vocal cords, and arytenoid-cricoid articulations. Normal subglottic trachea. Normal bilateral lobes of the thyroid gland. Normal visualized pulmonary apices. Opacification of the ethmoid sinus. Air-fluid level in the right maxillary sinus. Mucosal thickening of the left maxillary sinus. There is multilevel degenerative changes of the cervical spine. CT/Soft Tissue Neck WITH Contrast IMPRESSION: Maxillary and ethmoid sinusitis. Thickening of the posterior soft palate as well as the lingula. Electronically Signed: Eric Callahan MD at 13:58 EDT ,
[2023-10-11] MEDS: dexAMETHasone 10 MG/ML Vial IV (11:18)
[2023-10-11] MEDS: Ketorolac 15 MG/ML Vial IV (11:18)
[2023-10-11] MEDS: 0.9% Normal Saline (500mL Bag) 500 ML 1000 ML IV (11:18)
[2023-10-11 11:20] LABS: Absolute Lymphocyte Count 1.05 X10^3/uL (0.83-4.51); Absolute Neutrophil Count 5.2 X10^3/uL (2.0-7.7); Basophil# 0.02 X10^3/uL; Basophil% 0.3 % (0-1); Eosinophil# 0.26 X10^3/uL; Eosinophils% 3.5 % (0-5); Hematocrit 43.2 % (40-54); Hemoglobin 14.6 g/dL (13.0-16.5); Lymphocyte # 1.05 X10^3/ul (0.83-4.51); Lymphocyte % 14.3 % (19-41); Mean Corp Hgb Conc 33.8 g/dL (32-36); Mean Corpuscular Hgb 32.7 pg (27.0-32.0); Mean Corpuscular Volume 96.9 fL (80-94); Mean Platelet Vol. 10.4 fl (6.2-12.0); Monocyte# 0.82 X10^3/uL; Monocyte% 11.1 % (0-10); NRBC Flagged by Analyzer 0 % (0-5); Neutrophil % 70.7 % (47-70); Platelet Count 204 K/mm3 (150-450); RBC Distribution Width CV 12.8 % (11.6-14.6); RBC Distribution Width SD 46.5 fl (35.1-43.9); Red Blood Count 4.46 M/mm3 (4.6-6.2); White Blood Count 7.4 K/mm3 (4.4-11.0)
[2023-10-11 11:36] LABS: Anion Gap 6 (5-15); BUN 21 mg/dL (7-18); BUN/Creat Ratio 17.8 RATIO (10-20); Calcium,Total 9.1 mg/dL (8.5-10.1); Chloride 100 mmol/L (98-107); Creatinine, Serum 1.18 mg/dL (0.70-1.30); EST Glomerular Filtration Rate 63 mL/min (>60); Est Glom Filt Rate - Afr Amer 77 mL/min (>60); Estimated Creatinine Clearance 51.59 ml/min; Glucose 157 mg/dL (74-106); Potassium 3.7 mmol/L (3.5-5.1); Sodium Level 138 mmol/L (136-145)
[2023-10-11] MEDS: Famotidine 200 MG/20 ML MDV 20 MG in 0.9% Normal Saline (Pres. free 8 ML 300 MG IV (13:34)
[2023-10-11] MEDS: DiphenhydrAMINE 50 MG/ML Syringe 25 MG IV (13:34)
--- OUTSIDE RECORDS SUMMARY | 2023-10-11 18:51 | XMS RPT_ITS | CCD ---
Author Name Unknown Address [address] [place] [address] Organization [facility] Care Team Providers Care Manager Php Name Role Phone Rosy Ibanez Unavailable Unavailable Lona MÉNDEZ, Unique White Unavailable Unavailable Lona MÉNDEZ, Unique White Unavailable Unavailable Alie Chauhan Unavailable Alie Chauhan Unavailable Lona MÉNDEZ, Unique White Unavailable Unavailable Unique Zamorano RN Unavailable Unavailable [facility] PRATIBHA, Rigoberto Hyde Unavailable Cachorro Soto Unavailable Unavailable Cachorro Soto Unavailable Unavailable Alie Chauhan Unavailable Medications Completed/Discontinued Medications Medication Drug Class(es) Dates Sig (Normalized) Sig (Original) 24 hr alfuzosin hydrochloride 10 mg extended release oral tablet (6 sources) alpha-Adrenergic Arabella Start: 12-19-2016 take 1 tablet by mouth once daily ALFUZOSIN HCL ER 10 MG [id number] One tablet by mouth daily ALFUZOSIN HCL [id number] Unique Zamorano RN aspirin 81 mg oral tablet (20 sources) Nonsteroidal Anti-inflammatory Drug Start: 07-28-2011 take 1 tablet by mouth once daily ASPIRIN 81 MG TABS One tablet by mouth daily ASPIRIN [id number] Aurelia Huerta Problems Active Problems Problem Classification Problem Date Documented Date Episodic/Chronic Conduction disorders (12 sources) Atrioventricular block; Translations: [Unspecified atrioventricular block] Onset: 07-28-2011 07-28-2011 Chronic Coronary atherosclerosis and other heart disease (20 sources) Coronary arteriosclerosis; Translations: [Coronary atherosclerosis] Onset: 11-20-2013 11-20-2013 Chronic Disorders of lipid metabolism (12 sources) Hyperlipidemia; Translations: [Hyperlipidemia, unspecified] Onset: 01-17-2012 01-17-2012 Chronic Essential hypertension (12 sources) Hypertensive disorder; Translations: [Essential (primary) hypertension] Onset: 07-28-2011 07-28-2011 Chronic Unclassified (10 sources) Long-term drug therapy; Translations: [Other senior care (current) drug therapy] Onset: 11-13-2013 08-05-2015 Unclassified (1 source) Finding of body mass index; Translations: [Body mass index (BMI) 26.0-26.9, adult] Onset: 12-18-2013 12-18-2013 Past or Other Problems Problem Classification Problem Date Documented Date Episodic/Chronic Coronary atherosclerosis and other heart disease (12 sources) Coronary angioplasty status; Translations: [Coronary angioplasty status] Onset: 4 12-17-2013 Episodic Nonspecific chest pain (12 sources) Chest pain, unspecified; Translations: [Chest pain, unspecified] Onset: 4 11-04-2013 Episodic Other aftercare (14 sources) Long-term (current) use of other medications; Translations: [Other meterman (current) drug therapy] Onset: 4 11-13-2013 Episodic Other circulatory disease (19 sources) Electrocardiogram abnormal; Translations: [Carotid bruit] Onset: 1 07-28-2011 Episodic Other circulatory disease (5 sources) Carotid bruit; Translations: [Other specified symptoms and signs involving the circulatory and respiratory systems] Onset: 1 07-28-2011 Episodic Other nutritional; endocrine; and metabolic disorders (18 sources) Body mass index (BMI) 26.0-26.9, adult; Translations: [Body mass index (BMI) 27.0-27.9, adult] Onset: 4 12-18-2013 Episodic Other nutritional; endocrine; and metabolic disorders (5 sources) Body mass index (BMI) 27.0-27.9, adult; Translations: [Body mass index (BMI) 27.0-27.9, adult] Onset: 4 11-04-2013 Episodic Syncope (12 sources) Syncope and collapse; Translations: [Syncope and collapse] Onset: 4 11-04-2013 Episodic Results Test Name Value Interpretation Reference Range Facil ity Vital Signs Date Time Vital Sign Value Performing Clinician Edinson vega 03-22-2017 14:51-0400 BMI (Body Mass Index) 27.05 kg/m2 [facility] Work Phone: 03-22-2017 14:51-0400 BP Diastolic 60 mm[Hg] [facility] Work Phone: 03-22-2017 14:51-0400 BP Systolic 100 mm[Hg] [facility] Work Phone: 03-22-2017 14:51-0400 Height 175.26 cm [facility] Work Phone: 03-22-2017 14:51-0400 Pulse (Heart Rate) 52 /min [facility] Work Phone: 03-22-2017 14:51-0400 Respiratory Rate 20 /min [facility] Work Phone: 03-22-2017 14:51-0400 Weight 83.1 kg [facility] Work Phone: 12-19-2016 08:29-0400 Heart rate 65 /min Al[facility] Work Phone: 12-19-2016 08:22-0400 BMI (Body Mass Index) 26.58 kg/m2 [facility] Work Phone: 12-19-2016 08:22-0400 Body weight 81.65 kg [facility] Work Phone: 12-19-2016 08:22-0400 BP Diastolic 50 mm[Hg] [facility] Work Phone: 12-19-2016 08:22-0400 BP Systolic 100 mm[Hg] [facility] Work Phone: 12-19-2016 08:22-0400 Height 175.26 cm [facility] Work Phone: 12-19-2016 08:22-0400 Pulse (Heart Rate) 65 /min Alie Chauhan [facility] Work Phone: 12-19-2016 08:22-0400 Respiratory Rate 20 /min Alie Chauhan [facility] Work Phone: 12-19-2016 08:22-0400 Weight 81.65 kg Alie Chauhan [facility] Work Phone: 08-15-2016 09:11-0500 BMI (Body Mass Index) 26.73 kg/m2 [facility] Work Phone: 08-15-2016 09:11-0500 BP Diastolic 60 mm[Hg] Unique Zamorano RN [facility] Work Phone: 08-15-2016 09:11-0500 BP Systolic 130 mm[Hg] Unique Zamorano RN [facility] Work Phone: 08-15-2016 09:11-0500 BSA (Body Surface Area) 1.98 m2 Unique Zamorano RN [facility] Work Phone: 08-15-2016 09:11-0500 Pulse (Heart Rate) 68 /min Unique Zamorano RN [facility] Work Phone: 08-15-2016 09:11-0500 Respiratory Rate 20 /min Unique Zamorano RN [facility] Work Phone: 08-15-2016 09:11-0500 Weight 82.1 kg Unique Zamorano RN [facility] Work Phone: 12-18-2013 15:19-0400 Height 175.26 cm Unique Zamorano RN [facility] Work Phone: 10-02-2012 11:38-0500 Heart rate 443 ms Alie Chauhan [facility] Work Phone: Procedures Date Procedure Procedure Detail Performing Clinician Start: 03-22-2017 End: 03-22-2017 KEM Berman MD Start: 03-22-2017 End: 03-22-2017 Follow Up Appt 6 months Elizabeth Pisano Start: 02-20-2017 End: 02-20-2017 Follow Up BP Check Edd Berman MD Start: 02-15-2017 End: 02-20-2017 *Hepatic Function Panel Elizabeth Pisano Start: 02-15-2017 End: 02-20-2017 Lipid panel [AGGREGATE] Elizabeth Pisano Start: 12-19-2016 End: 12-19-2016 Documentation of current medications Alie Chauhan Start: 12-19-2016 End: 12-19-2016 KEM Berman MD Start: 12-19-2016 End: 12-27-2016 Electrocardiogram, complete Edd Gaming i, MD Start: 12-19-2016 End: 12-19-2016 Follow Up Appt 3 months Elizabeth Pisano Start: 12-19-2016 End: 12-27-2016 Nuclear stress test -exercise Edd Berman MD Start: 08-15-2016 End: 08-18-2016 *BMP Edd Berman MD Start: 08-15-2016 End: 08-18-2016 *Hepatic Function Panel Elizabeth Pisano Start: 08-15-2016 End: 08-15-2016 KEM Berman MD Start: 08-15-2016 End: 08-15-2016 Follow Up Appt 6 months Elizabeth Pisano Start: 08-15-2016 End: 08-18-2016 Lipid panel [AGGREGATE] Elizabeth Pisano Start: 08-15-2016 End: 08-18-2016 Thyroid stimulating hormone (TSH) Edd Berman MD Start: 08-11-2016 End: 08-24-2016 *Hepatic Function Panel Elizabeth Pisano Start: 08-11-2016 End: 08-24-2016 Lipid panel [AGGREGATE] Elizabeth Pisano Start: 02-15-2016 End: 02-15-2016 Follow Up Appt 6 months Elizabeth Pisano Start: 02-15-2016 End: 02-15-2016 MMM Edd Berman MD Start: 02-03-2016 End: 02-11-2016 *Hepatic Function Panel Elizabeth Pisnao Start: 02-03-2016 End: 02-11-2016 Lipid panel [AGGREGATE] Elizabeth Pisano Start: 08-10-2015 End: 08-10-2015 KEM Berman MD Start: 08-10-2015 End: 08-10-2015 Follow Up Appt 6 months Elizabeth Pisano Start: 07-28-2015 End: 08-05-2015 *Hepatic Function Panel Elizabeth Pisano Start: 07-28-2015 End: 08-05-2015 Lipid panel [AGGREGATE] Elizabeth Pisano Start: 01-22-2015 End: 01-26-2015 *Hepatic Function Panel Elizabeth Pisano Start: 01-22-2015 End: 01-22-2015 KEM Berman MD Start: 01-22-2015 End: 01-23-2015 Documentation of current medications dEd Berman MD Start: 01-22-2015 End: 01-22-2015 Follow Up Appt 6 months Elizabeth Pisano Start: 01-22-2015 End: 01-26-2015 Lipid panel [AGGREGATE] Elizabeth Pisano Start: 04-29-2014 End: 01-26-2015 *Hepatic Function Panel Elizabeth Pisano Start: 04-29-2014 End: 01-26-2015 Lipid panel [AGGREGATE] Elizabeth Pisano Start: 04-23-2014 End: 04-23-2014 KEM Berman MD Start: 04-23-2014 End: 04-23-2014 Follow Up Appt 6 months Elizabeth Pisano Start: 04-23-2014 End: 06-01-2014 Nuclear stress test -exercise Edd Berman MD Start: 12-18-2013 End: 04-06-2014 *Hepatic Function Panel Elizabeth Pisano Start: 12-18-2013 End: 12-18-2013 KEM Berman MD Start: 12-18-2013 End: 12-18-2013 Follow Up Appt 4 months Elizabeth Pisano Start: 12-18-2013 End: 04-06-2014 Lipid panel [AGGREGATE] Elizabeth Pisano Start: 11-20-2013 End: 04-06-2014 *BMP Cezar Franco MD Work Phone: Start: 11-20-2013 End: 04-06-2014 DJN Cezar Franco MD Work Phone: Start: 11-10-2013 End: 11-20-2013 Nuclear stress test -exercise Edd Berman MD Start: 11-04-2013 End: 11-06-2013 *BMP Edd Berman MD Start: 11-04-2013 End: 11-06-2013 *Hepatic Function Panel Elizabeth Pisano Start: 11-04-2013 End: 11-06-2013 CBC W Auto Differential panel - Blood Edd Berman MD Start: 11-04-2013 End: 11-07-2013 Chest x-ray Edd Berman MD Start: 11-04-2013 End: 11-06-2013 Coagulation factor induced.INR assay in platelet poor plasma Edd Berman MD Start: 11-04-2013 End: 11-04-2013 DIRECTORY CARRIER Edd Berman MD Start: 11-04-2013 End: 11-04-2013 Electrocardiogram, complete Edd Gaming i, MD Start: 11-04-2013 End: 11-04-2013 Follow Up Appt 6 months Elizabeth Pisano Start: 11-04-2013 End: 11-20-2013 Left Heart Cath Edd Berman MD Start: 11-04-2013 End: 11-06-2013 Lipid panel [AGGREGATE] Elizabeth Pisano Start: 12-28-2012 End: 02-07-2013 *Hepatic Function Panel Elizabeth Pisano Start: 12-28-2012 End: 02-07-2013 Coagulation factor induced.INR assay in platelet poor plasma Edd Berman MD Start: 12-28-2012 End: 02-07-2013 Lipid 1996 panel - Serum or Plasma Edd Berman MD Start: 10-02-2012 End: 10-02-2012 DIRECTORY CARRIER Edd Berman MD Start: 10-02-2012 End: 10-02-2012 Follow Up Appt Other Edd Berman MD Start: 10-02-2012 End: 10-02-2012 Lipid panel [AGGREGATE] Elizabeth Pisano Start: 08-01-2011 End: 01-17-2012 Electrocardiogram, complete Edd Gaming i, MD Start: 08-01-2011 End: 08-01-2011 Follow Up Appt 1 year Edd Berman MD Plan of Treatment Date Care Activity Detail Author Start: 09-20-2017 End: 09-20-2017 Appointment Appointment [facility] Work Phone: Start: 08-23-2017 End: 02-28-2017 *Hepatic Function Panel *Hepatic Function Panel [facility] Work Phone: Start: 08-23-2017 End: 02-28-2017 Lipid panel [AGGREGATE] *Lipid Profile CC PCP [facility] Work Phone: Start: 03-22-2017 End: 03-22-2017 Appointment Appointment [facility] Work Phone: Start: 03-22-2017 End: 03-22-2017 Appointment Appointment [facility] Work Phone: Start: 03-22-2017 End: 03-22-2017 DIRECTORY CARRIER DIRECTORY CARRIER [facility] Work Phone: Start: 03-22-2017 End: 03-22-2017 Follow Up Appt 6 months Follow Up Appt 6 months [facility] Work Phone: Start: 03-02-2017 End: 03-02-2017 Appointment Appointment [facility] Work Phone: Start: 02-20-2017 End: 02-20-2017 Appointment Appointment [facility] Work Phone: Start: 02-20-2017 End: 02-20-2017 Follow Up BP Check Follow Up BP Check [facility] Work Phone: Start: 02-15-2017 End: 02-20-2017 *Hepatic Function Panel *Hepatic Function Panel [facility] Work Phone: Start: 02-15-2017 End: 02-20-2017 Lipid panel [AGGREGATE] *Lipid Profile CC PCP [facility] Work Phone: Start: 12-19-2016 End: 12-19-2016 Appointment Appointment [facility] Work Phone: Start: 12-19-2016 End: 12-19-2016 DIRECTORY CARRIER DIRECTORY CARRIER [facility] Work Phone: Start: 12-19-2016 End: 12-27-2016 Electrocardiogram, complete EKG (In office) [facility] Work Phone: Start: 12-19-2016 End: 12-19-2016 Follow Up Appt 3 months Follow Up Appt 3 months [facility] Work Phone: Start: 12-19-2016 End: 12-19-2016 Nuclear stress test -exercise Nuclear stress test -exercise [facility] Work Phone: Start: 08-15-2016 End: 08-18-2016 *BMP *BMP [facility] Work Phone: Start: 08-15-2016 End: 08-18-2016 *Hepatic Function Panel *Hepatic Function Panel [facility] Work Phone: Start: 08-15-2016 End: 08-15-2016 DIRECTORY CARRIER DIRECTORY CARRIER [facility] Work Phone: Start: 08-15-2016 End: 08-15-2016 Follow Up Appt 6 months Follow Up Appt 6 months [facility] Work Phone: Start: 08-15-2016 End: 08-18-2016 Lipid panel [AGGREGATE] *Lipid Profile CC PCP [facility] Work Phone: Start: 08-15-2016 End: 08-18-2016 Thyroid stimulating hormone (TSH) *TSH [facility] Work Phone: Start: 08-11-2016 End: 08-24-2016 *Hepatic Function Panel *Hepatic Function Panel [facility] Work Phone: Start: 08-11-2016 End: 08-24-2016 Lipid panel [AGGREGATE] *Lipid Profile CC PCP [facility] Work Phone: Start: 02-15-2016 End: 02-15-2016 Follow Up Appt 6 months Follow Up Appt 6 months [facility] Work Phone: Start: 02-15-2016 End: 02-15-2016 MMM MMM [facility] Work Phone: Start: 02-03-2016 End: 02-11-2016 *Hepatic Function Panel *Hepatic Function Panel [facility] Work Phone: Start: 02-03-2016 End: 02-11-2016 Lipid panel [AGGREGATE] *Lipid Profile CC PCP [facility] Work Phone: Start: 08-10-2015 End: 08-10-2015 DIRECTORY CARRIER DIRECTORY CARRIER [facility] Work Phone: Start: 08-10-2015 End: 08-10-2015 Follow Up Appt 6 months Follow Up Appt 6 months [facility] Work Phone: Start: 07-28-2015 End: 08-05-2015 *Hepatic Function Panel *Hepatic Function Panel [facility] Work Phone: Start: 07-28-2015 End: 08-05-2015 Lipid panel [AGGREGATE] *Lipid Profile CC PCP [facility] Work Phone: Start: 01-22-2015 End: 01-26-2015 *Hepatic Function Panel *Hepatic Function Panel [facility] Work Phone: Start: 01-22-2015 End: 01-22-2015 DIRECTORY CARRIER DIRECTORY CARRIER [facility] Work Phone: Start: 01-22-2015 End: 01-22-2015 Follow Up Appt 6 months Follow Up Appt 6 months [facility] Work Phone: Start: 01-22-2015 End: 01-26-2015 Lipid panel [AGGREGATE] *Lipid Profile CC PCP [facility] Work Phone: Start: 04-29-2014 End: 01-26-2015 *Hepatic Function Panel *Hepatic Function Panel [facility] Work Phone: Start: 04-29-2014 End: 01-26-2015 Lipid panel [AGGREGATE] *Lipid Profile CC PCP [facility] Work Phone: Start: 04-23-2014 End: 04-23-2014 DIRECTORY CARRIER DIRECTORY CARRIER [facility] Work Phone: Start: 04-23-2014 End: 04-23-2014 Follow Up Appt 6 months Follow Up Appt 6 months [facility] Work Phone: Start: 04-23-2014 End: 04-23-2014 Nuclear stress test -exercise Nuclear stress test -exercise [facility] Work Phone: Start: 12-18-2013 End: 04-06-2014 *Hepatic Function Panel *Hepatic Function Panel [facility] Work Phone: Start: 12-18-2013 End: 12-18-2013 DIRECTORY CARRIER DIRECTORY CARRIER [facility] Work Phone: Start: 12-18-2013 End: 12-18-2013 Follow Up Appt 4 months Follow Up Appt 4 months [facility] Work Phone: Start: 12-18-2013 End: 04-06-2014 Lipid panel [AGGREGATE] *Lipid Profile CC PCP [facility] Work Phone: Start: 11-20-2013 End: 04-06-2014 *BMP *BMP [facility] Work Phone: Start: 11-20-2013 End: 04-06-2014 DJN DJN [facility] Work Phone: Start: 11-10-2013 End: 11-10-2013 Nuclear stress test -exercise Nuclear stress test -exercise [facility] Work Phone: Start: 11-04-2013 End: 11-04-2013 *BMP *BMP [facility] Work Phone: Start: 11-04-2013 End: 11-06-2013 *Hepatic Function Panel *Hepatic Function Panel [facility] Work Phone: Start: 11-04-2013 End: 11-04-2013 CBC W Auto Differential panel - Blood *CBC without Diff [facility] Work Phone: Start: 11-04-2013 End: 11-07-2013 Chest x-ray X-Ray, Chest, PA & Lateral [facility] Work Phone: Start: 11-04-2013 End: 11-04-2013 Coagulation factor induced.INR assay in platelet poor plasma *PT/INR [facility] Work Phone: Start: 11-04-2013 End: 11-04-2013 DIRECTORY CARRIER DIRECTORY CARRIER [facility] Work Phone: Start: 11-04-2013 End: 11-04-2013 Electrocardiogram, complete EKG (In office) [facility] Work Phone: Start: 11-04-2013 End: 11-04-2013 Follow Up Appt 6 months Follow Up Appt 6 months [facility] Work Phone: Start: 11-04-2013 End: 11-04-2013 Left Heart Cath Left Heart Cath [facility] Work Phone: Start: 11-04-2013 End: 11-06-2013 Lipid panel [AGGREGATE] *Lipid Profile CC PCP [facility] Work Phone: Start: 12-28-2012 End: 02-07-2013 *Hepatic Function Panel *Hepatic Function Panel [facility] Work Phone: Start: 12-28-2012 End: 02-07-2013 Lipid panel [AGGREGATE] *Lipid Profile [facility] Work Phone: Start: 10-02-2012 End: 10-02-2012 DIRECTORY CARRIER DIRECTORY CARRIER [facility] Work Phone: Start: 10-02-2012 End: 10-02-2012 Electrocardiogram, complete EKG (In office) [facility] Work Phone: Start: 10-02-2012 End: 10-02-2012 Follow Up Appt Other Follow Up Appt Other [facility] Work Phone: Start: 08-01-2011 End: 01-17-2012 Electrocardiogram, complete EKG (In office) [facility] Work Phone: Start: 08-01-2011 End: 08-01-2011 Follow Up Appt 1 year Follow Up Appt 1 year [facility] Work Phone: Patient Education [facility] Work Phone: Progress note 12-28-2021 Note Date & Type Note Facility 12-28-2021 Note HNO ID: [id number] Author: Noe Krause MD Service: ? Author Type: Physician Type: Progress Notes Filed: 12/28/2021 1:55 PM Note Text: PHYSICIAN'S NOTE: ? CYSTOSCOPY PROCEDURE ? Epic?notes reviewed: yes ? Interval history: foreign body in bladder, urethral stricture, bph ? Informed consent obtained ? Operation: Cystoscopy ? Anatomic Site: Bladder, Laterality: N/A Urethra, Laterality: Not applicable Prostate, Laterality: N/A ? Approach: endoscopic ? Device: None ? Qualifier: None ? TECHNIQUE: The procedure was fully explained to the patient, risks were reviewed. The patient was placed in the supine position. The genitalia were prepped with betadine, and the urethra was anesthetized with viscous 2% lidocaine. The flexible cystoscope was introduced into the urethra and advanced under direct vision with findings as outlined below. At the conclusion of the procedure, the cystoscope was withdrawn. ? Anesthetics given: Administered by nurse - see Pre-Procedure Nurse's Notes. Operative Findings Urethra: distal urethral stricture able to be negotiated with scope Prostate: s/p urolift Bladder: no stones, no tumors, no lesions, capsular tab without stone in bladder ? Radiologic Studies Urogram: N/A Complications: None ? Recommendations: Discussed findings with patient ? Post Procedure Evaluation Condition Post Procedure: satisfactory Post Procedure Medications: keflex ? reassurance given restart urethral self dilations pt to f/u in 2 years for cysto Discussed sperm granuloma of right epididymis. Not current ly tender today reassurance NSAIDS if it becomes tender ? I spent a total of 30 minutes on the date of the service which included preparing to see the patient, [id number] patient care, completing clinical documentation, performing a medically appropriate examination, counseling and educating the patient/family/caregiver, ordering medications, tests, or procedures, independently interpreting results (not separately reported), communicating results to the patient/family/caregiver and care coordination (not separately reported). ? ? ? Noe Krause MD [facility] Summary Purpose Family History No Family History Records Found Advance Directives No Advanced Directives Records Found Additional Source Comments (unrecognized sect ion and content) No Status Records Found INFORMATION SOURCE (unrecogn ized section and content) FOR RECORDS PERTAINING TO PATIENTS WHO ARE OR HAVE BEEN ENROLLED IN A CHEMICAL DEPENDENCY/SUBSTANCEABUSE PROGRAM, SOME INFORMATION MAY BE OMITTED. This clinical summary was aggregated from multiple sources. Caution should be exercised in using it in the provision of clinical care. This summary normalizes information from multiple sources, and as a consequence, information in this document may materially change the coding, format and clinical context of patient data. In addition, data may be omitted in some cases. CLINICAL DECISIONS SHOULD BE BASED ON THE PRIMARY CLINICAL RECORDS. [employer] provides no warranty or guarantee of the accuracy or completeness of information in this document.
== END 2023-10-11 14:44 | disposition home or self-care (01) ==
PROVIDERS: Emergency Provider Emergency Medicine; PCP Family Medicine; Visit Provider Emergency Medicine
DX: T78.3XXA Angioneurotic edema, initial encounter (principal); X58.XXXA Exposure to other specified factors, initial encounter; I25.10 Atherosclerotic heart disease of native coronary artery without angina pectoris; E78.5 Hyperlipidemia, unspecified; I10 Essential (primary) hypertension; Z95.5 Presence of coronary angioplasty implant and graft; Z79.82 Long term (current) use of aspirin; Z79.899 Other long term (current) drug therapy
CPT/HCPCS: 70491; 80048; 85025; 87651; 96361; 96374; 96375; 99282; J7040; Q9967; A4216; J3490

== ENCOUNTER 2023-11-16 10:00 | Outpatient (RCR) | payer MEDICARE, OTHER, SELFPAY ==
--- NOTE | 2023-08-16 14:37 | HP.PTEVAL ---
Patient's Visit Information Visit Information Visit Information: MESSI VILLA is a 78 year old M referred to Physical Therapy by Out of Town Doctor with a diagnosis of L SHLD ARTHROSCOPIC ROTATOR CUFF REPAIR 08/02/23. Date of Evaluation: 08/16/23 Physical Therapist: Zulema Clinton, PT, Cert MDT Visit Plan Frequency: 2-3x /Week Duration: 2-4 Months Plan: L SHLD ROTATOR CUFF REPAIR REHAB PER DR. CLINTON[facility]S [facility] PROTOCOL (IN WORK ROOM). Subjective Subjective: Work/Leisure: RETIRED Present symptoms: INTERMITTENT L SHLD PAIN/ACHE ALL THE WAY DOWN ARM INTO HAND. PATIENT DENIES L UE N&T. ALTERNATING IBUPROFEN AND TYLONOL PER DR. CLINTON Present since: OCTOBER 2022 Pain Scale: WORST 3/10, LEAST 0/10 Currently: 0/10 Is it getting better, worse or staying the same: VARIES Commenced as a result of: PULLING GARLIC MUSTARD AND FELL/ROLLED DOWN A HILL. 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 INTERMITTENT PAIN WITH THINGS LIKE DRESSING AND DON/DOFF SLING Better: ICE, IBUPROFEN AND Tylenol Disturbed sleep: YES - SLEEPING IN HOSPITAL BED Previous history/Previous treatment: PHYSICAL THERAPY PRIOR TO SURGERY. (R SHLD MASSIVE RCT WITH REPAIR 2.5 YRS AGO - PATIENT REPORTS BEING DELIGHTED WITH THE OUTCOME AND IT IS MAYBE EVEN BETTER THAN EVER). Treatment this episode: L SHLD ARTHROSCOPIC ROTATOR CUFF REPAIR 08/02/23 (2 WKS PO). Gait: NORMAL Bowel or Bladder Dysfunction: NO Unexplained weight loss: NO Imaging: MRI OF L SHLD PRIOR TO SX PMH/Recent major surgery: HEART STENT, HTN, HIGH CHOLESTEROL, HYPOTHYROIDISM Objective Objective: Sitting/Standing Posture: FAIR. FH AND ROUNDED SHLD'S. WEARING L UE SLING WITH ABD PILLOW. Other Observations: THIS PATIENT AMBULATES INDEP'LY INTO PT WITH NO GROSS DEVIATIONS NOTED WEARING HIS L UE SLING. 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 IR/ER MEASURED WITH 45 DEG ABD. FULL AROM OF L ELBOW, FOREARM, WRIST AND HAND. Motor deficit: R UE STRENGTH GROSSLY 5/5 AND PATIENT DENIES PAIN WITH TESTING. Cervical Mvmt Loss: FLEX - NIL, PRO - NIL, EXT - MOD, RET - APOLONIA, R ROT - MIN, L ROT - MIN, R SB - MOD, L SB - MOD. PATIENT DENIES PAIN WITH CERVICAL ROM TESTING ALL PLANES. TREATMENT: PROM L SHLD INTO FLEX, IR AND ER. INSTRUCTED PATIENT IN CONTINUED USE OF SLIING AND AVOIDANCE OF ACTIVE OR ACTIVE ASSISTIVE ROM IN L SHLD. PASSIVE ROM L SHLD ONLY. INSTRUCTED IN AROM OF L ELBOW, FOREARM, WRIST AND HAND. INSTRUCTED PATIENT IN PASSIVE L UE PENDULUM EX INTO FLEX/EXT, CW AND CCW X 20, 3 TIMES A DAY TOLERATED. PATIENT DEMONSTRATED ALL EX'S WELL AND COMMUNICATED A GOOD UNDERSTANDING OF ALL INSTRUCTIONS AFTER GIVEN. Balance/Special Test Scores Quick DASH Score: 45.4525 Goals Goal 1:: RESTORE FULL PROM L SHLD FLEX, IR AND ER ROM Goal Time Frame: 2-4 Weeks Goal 2:: RESTORE FULL AAROM L SHLD FLEX AND ER Goal Time Frame: 4-8 WKS Goal 3:: INCREASE L SHLD ROTATOR CUFF, PERISCAPULAR AND DELTOID STRENGTH TO 4/5 Goal Time Frame: 8-12 Weeks Goal 4:: PATIENT WILL BE INDEP WITH [facility] FOR CONTINUED IMPROVEMENT ONCE FORMAL PHYSICAL THERPAY CONCLUDES. Goal Time Frame: 8-12 Weeks Rehabilitation Potential Physical Therapy Diagnosis: THIS PATIENT PRESENTS WITH IMMOBILITY OF LEFT SHLD S/P RCR 08/02/23. HE HAS DECREASED PROM OF L SHLD AND WOULD BENEFIT FROM PT FOR PROM AND ROM/STRENGTH PROGRESSION PER PROTOCOL TO HELP PATIENT RETURN TO PLOF. Rehabilitation Potential: Excellent Anticipated Interventions Patient/Client Instruction: Educate patient on: Condition, Plan of Care and Risk Factors For the Purpose of:: To improve self management Therapeutic Exercise to Include: Strength training, Postural training, Flexibilty training, Neuromotor development, Passive ROM, Active ROM and Scapular Strength/Stabilization For the Purpose of:: To decrease pain, To improve muscle performance and motor function, To increase tolerance to activity/condition/position, To improve ability of physical actions for home/community/work/leisure and To increase flexibility/ROM Text: Thank you for the opportunity to evaluate your patient. For Medicare and Medicare HMO plans, please review the plan of care and approve it. It will need to be FAXED BACK to us at [phone] for Medicare purposes. For Medicare only, by signing this I certify the plan of care. Please let me know if there are questions or concerns regarding this plan of care. Physician Signature: Date:
--- NOTE | 2023-09-07 16:32 | HP.PTREVAL_ITS ---
Re-Evaluation Intro: Dr. Misael Conti MD, It has been my pleasure to treat MESSI VILLA over the last 10 visits for L SHLD ARTHROSCOPIC ROTATOR CUFF REPAIR 08/02/23. Please see the progress note below for an update on the physical therapy plan of care! Subjective Subjective: PATIENT REPORTS INCREASED PAIN AND SORENESS IN HIS SHOULDER SINCE THE DOCTOR TOOK HIM COMPLETELY OUT OF THE SLING SUNDAY. HE STATES THAT DUE TO THE INCREASED SORENESS HE WENT BACK TO SLEEPING IN IT AND IT HELPED. STATES THE DOCTOR SAID HE IS DOING VERY WELL. STATES THE DOCTOR SAID HE COULD GO DOWN TO 1- 2 TIMES A WEEK AND HE WOULD LIKE TO CONTINUE 2 TIMES A WEEK. HE ALSO REPORTS HE WAS RELEASED TO DRIVE AND HE DROVE HERE TODAY. Objective Objective/Function: PATIENT WAS SEEN TODAY FOR RE-ASSESSMENT OF PROGRESS TOWARD THE SET PT GOALS AND THE NEED FOR FURTHER PHYSICAL THERAPY VS READINESS FOR DISCHARGE. PATIENT IS PROGRESSING NICELY WITH PT AND IS A GOOD CANDIDATE TO CONTINUE PT 1-2 TIMES A WK TO WORK TOWARD FULL ROM DURING PHASE II AT THIS TIME. PATIENT IS AGREEABLE. UPON EXAM TODAY: THIS PATIENT IS 5 WEEKS AND 1 DAY S/P LEFT SHLD ARTHROSCOPIC ROTATOR CUFF REPAIR FOR A COMPLETE TEAR. ROM deficit: AAROM L SHLD IN SUPINE WITH 75 DEG ABD = 64 DEG ER, 72 DEG IR. SEATED ACTIVE FLEX = 130 DEG. Plan Plan Plan: CONTINUE PASSIVE PHASE I AND PROGRESS ACTIVE/ACTIVE ASSISTIVE PHASE II TOLERATED. HOLD PHASE III UNTIL FOLLOW UP WITH DR. CONTI 10/02/23 WHICH WILL BE APPROX 2 MONTHS POST OP. Balance/Gait/Functional tests Balance/Special Test Scores Quick DASH Score: 25.0000 Goals Goals Goal 1:: RESTORE FULL PROM L SHLD FLEX, IR AND ER ROM Goal Time Frame: 2-4 Weeks Goal 2:: RESTORE FULL AAROM L SHLD FLEX AND ER Goal Time Frame: 4-8 WKS Goal 3:: INCREASE L SHLD ROTATOR CUFF, PERISCAPULAR AND DELTOID STRENGTH TO 4/5 Goal Time Frame: 8-12 Weeks Goal 4:: PATIENT WILL BE INDEP WITH [facility] FOR CONTINUED IMPROVEMENT ONCE FORMAL PHYSICAL THERPAY CONCLUDES. Goal Time Frame: 8-12 Weeks Anticipated Interventions Anticipated Interventions Patient/Client Instruction: Educate patient on: Condition, Plan of Care and Risk Factors For the Purpose of:: To improve self management Therapeutic Exercise to Include: Strength training, Postural training, Flexibilty training, Neuromotor development, Passive ROM, Active ROM and Scapular Strength/Stabilization For the Purpose of:: To decrease pain, To improve muscle performance and motor function, To increase tolerance to activity/condition/position, To improve ability of physical actions for home/community/work/leisure and To increase flexibility/ROM Re-Evaluation Ending Re-evaluation ending: Please do not hesitate to contact me at [phone] by phone or if you have questions or concerns regarding this new plan of care! Sincerely, Zulema Clinton, PT, Cert MDT
--- NOTE | 2023-10-04 11:20 | HP.PTREVAL ---
Re-Evaluation Intro: Dr. Misael Conti MD, It has been my pleasure to treat MESSI VILLA over the last 17 visits for L SHLD ARTHROSCOPIC ROTATOR CUFF REPAIR 08/02/23. Please see the progress note below for an update on the physical therapy plan of care! Subjective Subjective: PATIENT REPORTS HE GOT A GOOD REPORT FROM THE SURGEON. STATES HE WANTS HIM TO EASE BACK INTO THINGS WITH BANDS THIS MONTH AND THEN BACK TO HIS WEIGHT MACHINES NEXT MONTH. PATIENT REPORTS HE HAS HAD MORE SORENESS WITH THIS SHOULDER THAN HE DID THE OTHER ONE. PATIENT REPORTS MOST OF THE SORENESS IS AT NIGHT. HE REPORTS THE ONLY ISSUE HE IS HAVING CURRENTLY IS SLEEPING. Objective Objective/Function: PATIENT WAS SEEN TODAY FOR RE-ASSESSMENT OF PROGRESS TOWARD THE SET PT GOALS AND THE NEED FOR FURTHER PHYSICAL THERAPY VS READINESS FOR DISCHARGE. THIS PATIENT IS MAKING GREAT PROGRESS WITH PT AND IS A GOOD CANDIDATE TO CONTINUE PT BASED ON PROGRESS MADE AND ROOM FOR FURHTER IMPROVEMENT BASED ON NEW ORDERS REC'D FROM SURGEON RELEASING PATIENT TO PREOGRESS TO FURTHER STRENGTHENING. PATIENT IS AGREEABLE. UPON EXAM TODAY: AROM L SHLD IN STANDING: FLEX 143 DEG ABD 155 DEG SUPINE PROM: FLEX 161 DEG ABD 152 DEG IR 83 DEG ER 74 DEG (IR AND ER MEASURED WITH 90 DEG SHLD ABD). ERP WITH SHLD ROM TESTING ALL PLANES IN SUPINE. STRENGTH: L SHLD FLEX 3-/5, ABD 3-/5, ER 3-/5, IR 4-/5. ELBOW 4/5. 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 R SHIP ENGINES OPERATING ENGINEER 80 LBS. PATIENT IS R HAND DOMINANT. Plan Plan Plan: 2X'S A WK X 10 VISITS. CONTINUE PASSIVE ROM AND AAROM TO ACHIEVE FULL ROM. PROGRESS TO PHASE III WITH TBANDS THIS MONTH AND THEM SLOWLY MOVE BACK TOWARDS GYM MACHINES IN OCTOBER TOLERATED. Balance/Gait/Functional tests Balance/Special Test Scores Quick DASH Score: 6.8175 Goals Goals Goal 1:: RESTORE FULL PROM L SHLD FLEX, IR AND ER ROM Goal Time Frame: 2-4 Weeks Goal 2:: RESTORE FULL AAROM L SHLD FLEX AND ER Goal Time Frame: 4-8 WKS Goal 3:: INCREASE L SHLD ROTATOR CUFF, PERISCAPULAR AND DELTOID STRENGTH TO 4/5 Goal Time Frame: 8-12 Weeks Goal 4:: PATIENT WILL BE INDEP WITH [facility] FOR CONTINUED IMPROVEMENT ONCE FORMAL PHYSICAL THERPAY CONCLUDES. Goal Time Frame: 8-12 Weeks Anticipated Interventions Anticipated Interventions Patient/Client Instruction: Educate patient on: Condition, Plan of Care and Risk Factors For the Purpose of:: To improve self management Therapeutic Exercise to Include: Strength training, Postural training, Flexibilty training, Neuromotor development, Passive ROM, Active ROM and Scapular Strength/Stabilization For the Purpose of:: To decrease pain, To improve muscle performance and motor function, To increase tolerance to activity/condition/position, To improve ability of physical actions for home/community/work/leisure and To increase flexibility/ROM Re-Evaluation Ending Re-evaluation ending: Please do not hesitate to contact me at [phone] by phone or if you have questions or concerns regarding this new plan of care! Sincerely, Zulema Clinton, PT, Cert MDT
--- NOTE | 2023-11-16 10:52 | HP.PTDCSUM_ITS ---
Discharge Summary D/C summary: It has been my pleasure to treat MESSI VILLA referred by Dr. Misael Conti MD, with the diagnosis of L SHLD ARTHROSCOPIC ROTATOR CUFF REPAIR 08/02/23 for a total of 25 visit(s). Discharge Date: 11/16/23 Please see the following information for a summary of their discharge status. Subjective Subjective: INTERMITTENT RESIDUAL L SHLD SORENESS WITH REACHING AND IN L SDLY. HAPPY WITH OUTCOME AND FEELS READY TO CONTINUE WITH INDEP GYM PROGRAM. Pain L Shoulder: Pain Intensity (Out of 10): 0 Overall Improvement % Improvement: 95 Objective Objective/Function: PATIENT WAS SEEN TODAY FOR RE-ASSESSMENT OF PROGRESS TOWARD THE SET PT GOALS AND THE NEED FOR FURTHER PHYSICAL THERAPY VS READINESS FOR DISCHARGE. UPON EXAM TODAY: ALL GOALS MET. L UE ROM AND STRENGTH WFL. INDEP GYM PROGRAM HAS BEEN PROVIDED. PATIENT WITH NO COMPLAINTS OR CONCERNS. Goals Goal 1:: RESTORE FULL PROM L SHLD FLEX, IR AND ER ROM Goal Progress: Goal Met Goal 2:: RESTORE FULL AAROM L SHLD FLEX AND ER Goal Progress: Goal Met Goal 3:: INCREASE L SHLD ROTATOR CUFF, PERISCAPULAR AND DELTOID STRENGTH TO 4/5 Goal Progress: Goal Met Goal 4:: PATIENT WILL BE INDEP WITH [facility] FOR CONTINUED IMPROVEMENT ONCE FORMAL PHYSICAL THERPAY CONCLUDES. Goal Progress: Goal Met Plan Plan: D/C D/C Information d/c sentence: If there are questions or concerns regarding this patient's physical therapy, please feel free to call me at [phone]. Thank you for the referral of this patient. Sincerely, Zulema Clinton, PT, Cert MDT Balance/Gait/Functional tests Balance/Special Test Scores Quick DASH Score: 5.0000 Improvement % Improvement: 95
== END 2023-11-16 19:00 | disposition home or self-care (01) ==
LOC: PT 10:00
PROVIDERS: PCP Family Medicine; Visit Provider Orthopaedic Surgery
DX: M75.122 Complete rotator cuff tear or rupture of left shoulder, not specified as traumatic (principal)
CPT/HCPCS: 97110; 97140; 97162; 97530

== ENCOUNTER → 2024-01-21 | Outpatient (CLI) | payer MEDICARE, OTHER, SELFPAY ==
[2024-01-21 08:38] LABS: Absolute Lymphocyte Count 1.51 X10^3/uL (0.83-4.51); Absolute Neutrophil Count 2.7 X10^3/uL (2.0-7.7); Basophil# 0.03 X10^3/uL; Basophil% 0.6 % (0-1); Eosinophil# 0.18 X10^3/uL; Eosinophils% 3.6 % (0-5); Hematocrit 42.8 % (40-54); Hemoglobin 14.7 g/dL (13.0-16.5); Lymphocyte # 1.51 X10^3/ul (0.83-4.51); Lymphocyte % 30.3 % (19-41); Mean Corp Hgb Conc 34.3 g/dL (32-36); Mean Corpuscular Hgb 32.6 pg (27.0-32.0); Mean Corpuscular Volume 94.9 fL (80-94); Mean Platelet Vol. 10.6 fl (6.2-12.0); Monocyte# 0.52 X10^3/uL; Monocyte% 10.4 % (0-10); NRBC Flagged by Analyzer 0 % (0-5); Neutrophil # 2.73 X10^3/uL (2.7-7.7); Neutrophil % 54.9 % (47-70); Platelet Count 239 K/mm3 (150-450); RBC Distribution Width CV 12.7 % (11.6-14.6); RBC Distribution Width SD 44.1 fl (35.1-43.9); Red Blood Count 4.51 M/mm3 (4.6-6.2)
[2024-01-21 09:05] LABS: Vitamin D,25 Hydroxy 44.4 ng/mL
[2024-01-21 09:35] LABS: ALB/GLOB Ratio 0.9 RATIO (0.9-2.4); AST(SGOT) 24 U/L (15-37); Alanine Aminotransfer ALT/SGPT 24 U/L (16-61); Albumin, Serum 3.5 g/dL (3.2-5.0); Alkaline Phosphatase 92 U/L (45-117); Anion Gap 6 (5-15); BUN 28 mg/dL (7-18); BUN/Creat Ratio 22.8 RATIO (10-20); Calcium,Total 8.8 mg/dL (8.5-10.1); Chloride 105 mmol/L (98-107); Cholesterol 128 mg/dL (200); Creatinine, Serum 1.23 mg/dL (0.70-1.30); EST Glomerular Filtration Rate 60 mL/min (>60); Est Glom Filt Rate - Afr Amer 73 mL/min (>60); Globulin 3.8 g/dL (2.2-4.2); Glucose 90 mg/dL (74-106); High Density Lipoprotein 54 mg/dL; Potassium 3.6 mmol/L (3.5-5.1); Protein, Total 7.3 g/dL (6.4-8.2); Sodium Level 139 mmol/L (136-145); T4 Free Direct 1.15 ng/dL (0.76-1.46); Triglycerides 65 mg/dL; Very Low Density Lipoprotein 13 mg/dL (5-40)
[2024-01-21 10:37] LABS: Hemoglobin A1c 5.7 % (3.8-5.6)
== END | disposition home or self-care (01) ==
LOC: LAB 06:01
PROVIDERS: PCP Family Medicine; Referring Provider Family Medicine; Visit Provider Family Medicine
DX: I25.10 Atherosclerotic heart disease of native coronary artery without angina pectoris (principal); E03.9 Hypothyroidism, unspecified; R73.02 Impaired glucose tolerance (oral); E55.9 Vitamin D deficiency, unspecified
CPT/HCPCS: 36415; 80053; 80061; 82306; 83036; 84439; 84443; 85025

== ENCOUNTER → 2024-05-14 | Outpatient (CLI) | payer MEDICARE, OTHER, SELFPAY ==
[2024-05-14 07:52] LABS: Absolute Lymphocyte Count 1.23 X10^3/uL (0.83-4.51); Absolute Neutrophil Count 2.9 X10^3/uL (2.0-7.7); Basophil# 0.04 X10^3/uL; Basophil% 0.8 % (0-1); Eosinophil# 0.24 X10^3/uL; Eosinophils% 4.8 % (0-5); Hematocrit 42.1 % (40-54); Hemoglobin 14.2 g/dL (13.0-16.5); Lymphocyte # 1.23 X10^3/ul (0.83-4.51); Lymphocyte % 24.4 % (19-41); Mean Corp Hgb Conc 33.7 g/dL (32-36); Mean Corpuscular Hgb 32.1 pg (27.0-32.0); Mean Platelet Vol. 10.5 fl (6.2-12.0); Monocyte% 11.9 % (0-10); NRBC Flagged by Analyzer 0 % (0-5); Neutrophil # 2.92 X10^3/uL (2.7-7.7); Neutrophil % 57.9 % (47-70); Platelet Count 234 K/mm3 (150-450); RBC Distribution Width CV 12.9 % (11.6-14.6); RBC Distribution Width SD 45.1 fl (35.1-43.9); Red Blood Count 4.43 M/mm3 (4.6-6.2)
[2024-05-14 08:14] LABS: ALB/GLOB Ratio 0.9 RATIO (0.9-2.4); AST(SGOT) 23 U/L (15-37); Alanine Aminotransfer ALT/SGPT 23 U/L (16-61); Albumin, Serum 3.6 g/dL (3.2-5.0); Alkaline Phosphatase 101 U/L (45-117); Anion Gap 5 (5-15); BUN 25 mg/dL (7-18); BUN/Creat Ratio 20.3 RATIO (10-20); Calcium,Total 9.1 mg/dL (8.5-10.1); Chloride 103 mmol/L (98-107); Creatinine, Serum 1.23 mg/dL (0.70-1.30); EST Glomerular Filtration Rate 60 mL/min (>60); Est Glom Filt Rate - Afr Amer 73 mL/min (>60); Globulin 3.8 g/dL (2.2-4.2); Glucose 103 mg/dL (74-106); Potassium 3.4 mmol/L (3.5-5.1); Protein, Total 7.4 g/dL (6.4-8.2); Sodium Level 140 mmol/L (136-145)
[2024-05-14 08:19] LABS: Hemoglobin A1c 5.8 % (3.8-5.6)
== END | disposition home or self-care (01) ==
LOC: LAB 07:12
PROVIDERS: PCP Family Medicine; Referring Provider Family Medicine; Visit Provider Family Medicine
DX: I10 Essential (primary) hypertension (principal)
CPT/HCPCS: 36415; 80053; 83036; 85025

== ENCOUNTER → 2024-07-07 | Outpatient (CLI) | payer MEDICARE, OTHER, SELFPAY ==
--- NOTE | 2024-07-07 16:30 | STRESSREP ---
Stress Test Report Exercise myocardial perfusion stress test. 79-year-old male with a history of coronary artery disease Stress protocol: Resting EKG demonstrates sinus bradycardia with a rate of 52 bpm left anterior fascicular block and a right bundle branch block and resting blood pressure is 142/76 mmHg. The patient exercised according to the regular Gamaliel protocol for a total duration of 9 minutes attaining a maximum heart rate of 131 bpm which was 92% of maximum predicted heart rate; the maximum workload was 10.3 metabolic equivalents. At rest there were no ST or T wave changes noted to suggest ischemia and at peak exercise upsloping ST changes only were noted which did not meet the criteria for ischemia. No clinical angina was noted the test was terminated due to the target heart rate being achieved/fatigue. The peak blood pressure was 182/70 mmHg. Rate-pressure product was 22,500. Myocardial perfusion protocol. 11 point mCi of technetium 99m sestamibi was injected at rest. The patient exercised according to regular Gamaliel protocol for total duration of 9 minutes and at peak exercise 34.3 mCi of technetium 99m sestamibi was injected stress images were obtained stress and rest images were reconstructed in comparing the short axis vertical long and horizontal long axis. Gated images were also obtained. Perfusion SPECT analysis: Review of the stress images demonstrate normal uptake of tracer noted in all areas of the myocardium. The resting images similarly demonstrate normal uptake of tracer noted in all areas of the myocardium. No areas of reversibility are noted to suggest ischemia no previous infarct was noted. Gated SPECT analysis: The gated ejection fraction is 51%. Conclusion: Normal exercise myocardial perfusion stress test at a high workload Preserved ejection fraction. Occasional premature ventricular complexes noted and no conduction system disorder present
== END | disposition home or self-care (01) ==
LOC: CVS 06:28
PROVIDERS: PCP Family Medicine; Referring Provider Internal Medicine Cardiovascular Disease; Visit Provider Internal Medicine Cardiovascular Disease
DX: I25.10 Atherosclerotic heart disease of native coronary artery without angina pectoris (principal); Z95.5 Presence of coronary angioplasty implant and graft
CPT/HCPCS: 78452; 93017; A9500; A4216

== ENCOUNTER → 2024-09-05 | Outpatient (CLI) | payer MEDICARE, OTHER, SELFPAY ==
[2024-09-05 07:44] LABS: Absolute Lymphocyte Count 1.01 X10^3/uL (0.83-4.51); Absolute Neutrophil Count 14.3 X10^3/uL (2.0-7.7); Basophil# 0.01 X10^3/uL; Basophil% 0.1 % (0-1); Hematocrit 40.6 % (40-54); Hemoglobin 14.3 g/dL (13.0-16.5); Lymphocyte # 1.01 X10^3/ul (0.83-4.51); Lymphocyte % 6.3 % (19-41); Mean Corp Hgb Conc 35.2 g/dL (32-36); Mean Corpuscular Hgb 32.6 pg (27.0-32.0); Mean Corpuscular Volume 92.7 fL (80-94); Mean Platelet Vol. 10.2 fl (6.2-12.0); Monocyte# 0.61 X10^3/uL; Monocyte% 3.8 % (0-10); NRBC Flagged by Analyzer 0 % (0-5); Neutrophil # 14.33 X10^3/uL (2.7-7.7); Neutrophil % 89.3 % (47-70); Platelet Count 248 K/mm3 (150-450); RBC Distribution Width CV 13.4 % (11.6-14.6); RBC Distribution Width SD 45.5 fl (35.1-43.9); Red Blood Count 4.38 M/mm3 (4.6-6.2)
[2024-09-05 08:27] LABS: ALB/GLOB Ratio 0.9 RATIO (0.9-2.4); AST(SGOT) 20 U/L (15-37); Alanine Aminotransfer ALT/SGPT 25 U/L (16-61); Albumin, Serum 3.6 g/dL (3.2-5.0); Alkaline Phosphatase 91 U/L (45-117); Anion Gap 7 (5-15); BUN 45 mg/dL (7-18); BUN/Creat Ratio 31.7 RATIO (10-20); Calcium,Total 9.3 mg/dL (8.5-10.1); Chloride 103 mmol/L (98-107); Cholesterol 138 mg/dL (200); Creatinine, Serum 1.42 mg/dL (0.70-1.30); EST Glomerular Filtration Rate 51 mL/min (>60); Est Glom Filt Rate - Afr Amer 62 mL/min (>60); Glucose 181 mg/dL (74-106); High Density Lipoprotein 74 mg/dL; Potassium 3.7 mmol/L (3.5-5.1); Protein, Total 7.6 g/dL (6.4-8.2); Sodium Level 138 mmol/L (136-145); Thyroid Stim Hormone (TSH) 0.553 uIU/mL (0.358-3.740); Triglycerides 69 mg/dL; Very Low Density Lipoprotein 14 mg/dL (5-40)
== END | disposition home or self-care (01) ==
LOC: LAB 07:28
PROVIDERS: PCP Family Medicine; Referring Provider Family Medicine; Visit Provider Family Medicine
DX: E03.9 Hypothyroidism, unspecified (principal); R73.02 Impaired glucose tolerance (oral)
CPT/HCPCS: 36415; 80053; 80061; 83036; 84439; 84443; 85025

== ENCOUNTER → 2024-09-10 | Outpatient (CLI) | payer MEDICARE, OTHER, SELFPAY ==
[2024-09-10 12:46] LABS: Absolute Neutrophil Count 5.1 X10^3/uL (2.0-7.7); Basophil# 0.01 X10^3/uL; Basophil% 0.1 % (0-1); Eosinophil# 0.33 X10^3/uL; Eosinophils% 4.1 % (0-5); Hematocrit 41.8 % (40-54); Hemoglobin 13.9 g/dL (13.0-16.5); Lymphocyte % 19.8 % (19-41); Mean Corp Hgb Conc 33.3 g/dL (32-36); Mean Corpuscular Hgb 31.7 pg (27.0-32.0); Mean Corpuscular Volume 95.2 fL (80-94); Mean Platelet Vol. 11.1 fl (6.2-12.0); Monocyte# 0.97 X10^3/uL; NRBC Flagged by Analyzer 0 % (0-5); Neutrophil # 5.14 X10^3/uL (2.7-7.7); Neutrophil % 63.6 % (47-70); Platelet Count 225 K/mm3 (150-450); RBC Distribution Width CV 13.1 % (11.6-14.6); RBC Distribution Width SD 46.3 fl (35.1-43.9); Red Blood Count 4.39 M/mm3 (4.6-6.2); White Blood Count 8.1 K/mm3 (4.4-11.0)
[2024-09-10 13:18] LABS: Anion Gap 7 (5-15); BUN 30 mg/dL (7-18); BUN/Creat Ratio 23.4 RATIO (10-20); Calcium,Total 8.9 mg/dL (8.5-10.1); Chloride 101 mmol/L (98-107); Creatinine, Serum 1.28 mg/dL (0.70-1.30); EST Glomerular Filtration Rate 58 mL/min (>60); Est Glom Filt Rate - Afr Amer 70 mL/min (>60); Glucose 114 mg/dL (74-106); Potassium 3.7 mmol/L (3.5-5.1); Sodium Level 135 mmol/L (136-145)
[2024-09-10 13:23] LABS: Hemoglobin A1c 6.2 % (3.8-5.6)
== END | disposition home or self-care (01) ==
LOC: MFPLAB 10:27
PROVIDERS: PCP Family Medicine; Referring Provider Family Medicine; Visit Provider Family Medicine
DX: N28.9 Disorder of kidney and ureter, unspecified (principal)
CPT/HCPCS: 36415; 80048; 83036; 85025

== ENCOUNTER → 2025-01-20 | Outpatient (CLI) | payer MEDICARE, OTHER, SELFPAY ==
--- OUTSIDE RECORDS SUMMARY | 2025-01-20 07:17 | XMS RPT_ITS | CCD ---
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 Moiz Elise Primary Care Provider Dr. Moiz Elise Referring Provider IGOR Caldwell NP Attending Provider Dr. Moiz Elise Primary Care Provider Dr. Moiz Elise Referring Provider Javi MCKINNON NP-Cory Adorno Attending Provider Dr. Trino Mclean Attending Provider Javi MCKINNON NP-Cory Adorno Referring Provider Dr. Moiz Elise Primary Care Provider [phone] Dr. Moiz Elise Referring Provider Dr. Edd Berman Attending Provider Dr. Moiz Elise Primary Care Provider Dr. Moiz Elise Referring Provider IGOR Caldwell NP Attending Provider Dr. Moiz Elise Primary Care Provider [phone] Dr. Moiz Elise Referring Provider [phone] Javi FIELD SCOUT, FIELD SCOUT-C Tila Attending Provider Dr. Moiz Elise Primary Care Provider [phone] Dr. Edd Berman Attending Provider Javi FIELD SCOUT, FIELD SCOUT-C Tila Attending Provider Dr. Moiz Elise Referring Provider Dr. Moiz Elise Primary Care Provider [phone] Javi FIELD SCOUT, FIELD SCOUT-C Tila Attending Provider Dr. Moiz Elise Referring Provider [phone] Moiz Elise Primary Care Provider [phone] Javi FIELD SCOUT, FIELD SCOUT-C Tila Attending Provider Moiz Elise MD Primary Care Provider Misael Conti Attending Unavailable Jose Cruzner, Moiz E Primary Care Unavailable Jose Cruzner, Moiz Sánchez Primary Care Unavailable Barrie Pike Attending Unavailable Schinner, Moiz E Primary Care Unavailable SchinnerMoiz E Attending Unavailable Schinner, Moiz E Referring Unavailable Schinner, Moiz E Primary Care Unavailable SchMoiz murphy Attending Unavailable SusieinnerMoiz Referring Unavailable Schinner, Moiz E Primary Care Unavailable SchinnerMoiz Attending Unavailable Schinner, Moiz E Referring Unavailable Antonella, Edd Attending Unavailable Antonella, [place] Referring Unavailable Schinner, Moiz E Primary Care Unavailable Schinner, Moiz E Primary Care Unavailable SchinnerMoiz E Attending Unavailable Schinner, Moiz E Referring Unavailable Schinner, Moiz E Primary Care Unavailable Schinner, Moiz E Attending Unavailable Schinner, Mozi E Referring Unavailable Schinner, Moiz E Primary Care Unavailable Antonella, [place] Referring Unavailable Antonella, Edd Consulting Unavailable Antonella, [place] Attending Unavailable Antonella, [place] Attending Unavailable Schinner, Moiz E Primary Care Unavailable Schinner, Moiz E Referring Unavailable ANNETTA KRAUSE Attending Unavailable SCHINNER, MOIZ E Primary Care Unavailable KYLAH DIMAS Attending Unavailable SELF Referring Unavailable SCHINNER, MOIZ E Primary Care Unavailable Allergies Allergy Classification Reported Allergen(s) Allergy Type Date of Onset Reaction(s) Facility (19 sources) Ramipril; Translations: [RAMIPRIL] Drug Allergy 1 Other: See Comments [facility] (4 sources) nabumetone; Translations: [NABUMETONE] Drug Allergy 5 GI Upset [facility] Work Phone: (1 source) Ramipril Drug Allergy 4 [facility] Repository Medications Current Medications Medication Drug Class(es) Dates Sig (Normalized) Sig (Original) aspirin 81 mg chewable tablet (20 sources) Nonsteroidal Anti-inflammatory Drug Start: 11-07-2013 take 81 mg by mouth once daily Aspirin Active 81 MG PO DAILY@0800 November 07, 2013 12:00am Start: 07-28-2011 take 1 tablet by bereket th once daily ASPIRIN 81 MG TABS One tablet by mouth daily ASPIRIN [id number] Aurelia Huerta Start: 07-28-2011 take 1 tablet by bereket th once daily ASPIRIN EC 81 MG TBEC One tablet by mouth daily ASPIRIN [id number] Stephanie Sparrow RN Start: 06-21-2005 ASPIRIN 81 MG TAB Take one (1) tablet daily . 0 06/21/2005 Active benzonatate 100 mg oral capsule (3 sources) Non-narcotic Antitussive Start: 11-20-2016 take 1 capsule by mouth three times daily as needed benzonatate (TESSALON PERLE) 100 mg capsule Indications: Viral URI with cough Take 1-2 capsules by mouth three times daily as needed. 30 capsule 11/20/2016 Active cephalexin 500 mg oral capsule (7 sources) Cephalosporin Antibacterial Start: 12-28-2021 cephALEXin 500 mg cap(s) (KEFLEX) cholecalciferol 0.05 mg oral capsule (12 sources) Vitamin D Start: 02-09-2022 take 100 ug by mouth once daily Cholecalciferol (Vitamin D3) Active 100 MCG PO DAILY February 09, 2022 12:00am clopidogrel 75 mg oral tablet (20 sources) P2Y12 Platelet Inhibitor Start: 12-04-2013 End: 06-04-2020 take 1 tablet by mouth once daily clopidogrel (PLAVIX) 75 mg tablet Take 1 tablet by mouth once daily. 31 tablet 11 12/04/2013 Active Start: 11-13-2013 End: 11-20-2013 take 1 tablet by mouth once daily PLAVIX 75 MG TABS One tablet by mouth daily CLOPIDOGREL BISULFATE [id number] Cezar Franco MD codeine phosphate 2 mg/ml / guaiFENesin 20 mg/ml oral solution (3 sources) Opioid Agonist Start: 11-20-2016 take 5-10 mL by mouth four times daily as needed for cough codeine-guaiFENesin (ROBITUSSIN AC) 10-100 mg/5 mL syrup Indications: Viral URI with cough Take 5-10 mL by mouth four times daily as needed for Cough. May cause drowsiness. 120 mL 11/20/2016 Active dutasteride 0.5 mg oral capsule (14 sources) 5-alpha Reductase Inhibitor Start: 11-03-2016 take 1 capsule by mouth once daily dutasteride (AVODART) 0.5 mg capsule Indications: BPH (benign prostatic hypertrophy) with urinary obstruction Take 1 capsule by mouth once daily. 0 11/03/2016 Active levothyroxine sodium 0.088 mg oral tablet (20 sources) l-Thyroxine Start: 02-22-2023 take 100 ug by mouth once daily Levothyroxine Active 100 MCG PO DAILY February 22, 2023 11:03am Start: 08-25-2022 End: 02-22-2023 take 88 ug by mouth once daily Levothyroxine Discontin ued 88 MCG PO DAILY August 25, 2022 1:00am February 22, 2023 11:03am Start: 12-28-2020 End: 08-25-2022 take 75 ug by mouth once daily Levothyroxine Discontin ued 75 MCG PO DAILY December 28, 2020 12:00am August 25, 2022 3:26pm Start: 01-21-2019 End: 12-28-2020 levothyroxine 50 mcg capsule Discontinued 75 MCG PO DAILY January 21, 2019 12:00am December 28, 2020 4:01pm take 1 capsule by [facility] once daily before breakfast levothyroxine 75 mcg cap Take 75 mcg by mouth daily before breakfast. Active predniSONE 20 mg oral tablet (18 sources) Start: 10-11-2023 take 20 mg by mouth once daily Prednisone Active 20 MG PO DAILY October 11, 2023 12:00am Start: 10-12-2020 End: 12-28-2020 Prednisone Discontinued 0 MG PO DAILY October 12, 2020 12:00am December 28, 2020 4:02pm With food vitamin D3-vitamin K2 1,250- 200 mcg cap (3 sources) vitamin D3-vitam in K2 1,250-200 mcg cap Take by mouth. Active Completed/Discontinued Medications Medication Drug Class(es) Dates Sig (Normalized) Sig (Original) 24 hr alfuzosin hydrochloride 10 mg extended release oral tablet (20 sources) alpha-Adrenergic Arabella Start: 10-15-2017 End: 10-17-2018 take 10 mg by mouth once daily Alfuzosin Discontinued 10 MG PO daily October 15, 2017 12:00am October 17, 2018 3:26pm Start: 12-19-2016 take 1 tablet by bereket th once daily ALFUZOSIN HCL ER 10 MG [id number] One tablet by mouth daily ALFUZOSIN HCL [id number] Unique Zamorano RN amLODIPine 5 mg oral tablet (20 sources) Dihydropyridine Calcium Channel Arabella Start: 01-26-2021 End: 08-07-2023 take 5 mg by mouth once daily Amlodipine Discontinued 5 MG PO DAILY February 07, 2023 1:54pm August 07, 2023 3:03pm Start: 08-27-2020 End: 01-26-2021 take 10 mg by mouth once daily Amlodipine Discontinued 10 MG PO DAILY December 28, 2020 4:30pm January 26, 2021 8:58am Start: 06-04-2020 End: 08-27-2020 take 5 mg by mouth once daily Amlodipine Discontinued 5 MG PO DAILY June 04, 2020 1:00am August 27, 2020 5:17pm atorvastatin 10 mg oral tablet (20 sources) HMG-CoA Reductase Inhibitor Start: 11-10-2013 End: 08-31-2023 take 10 mg by mouth once daily Atorvastatin Discontinued 10 MG PO daily September 06, 2021 6:29pm August 25, 2022 4:23pm azelastine hydrochloride 0.206 mg/actuat metered dose nasal spray (9 sources) Histamine-1 Receptor Antagonist Start: 08-25-2022 End: 02-22-2023 Azelastine Discontinued 2 SPRAY INTRANASAL DAILY August 25, 2022 1:00am February 22, 2023 11:01am ciprofloxacin 500 mg oral tablet (15 sources) Quinolone Antimicrobial Start: 01-21-2019 End: 01-28-2019 take 1 tablet by mouth every twelve hours Ciprofloxacin Hcl (Cipro) 500 mg tablet Discontinued 500 MG PO Q12H 14 7 January 21, 2019 12:00am January 28, 2019 12:06am diphenhydrAMINE hydrochloride 25 mg oral capsule (15 sources) Histamine-1 Receptor Antagonist Start: 10-12-2020 End: 12-28-2020 take 25 mg by mouth twice daily as needed Diphenhydramine Hcl Discontinued 25 MG PO TWICE DAILY NEEDED October 12, 2020 11:21am December 28, 2020 4:01pm DOXYCYCLINE HYCLATE CAPS (20 sources) Tetracycline-class Drug Start: 04-23-2014 End: 01-22-2015 DOXYCYCLINE HYCLATE CAPS 20mg daily DOXYCYCLINE HYCLATE CAPS [id number] Edd Berman MD Start: 04-23-2014 DOXYCYCLINE HY CLATE CAPS 20mg daily DOXYCYCLINE HYCLATE CAPS [id number] Edd Berman MD Start: 04-23-2014 End: 01-22-2015 DOXYCYCLINE HYCLATE CAPS 20m g daily DOXYCYCLINE HYCLATE CAPS [id number] Edd Berman MD [id number] 0.3 ml EPINEPHrine 1 mg/ml auto-injector (15 sources) alpha-Adrenergic Agonist, beta-Adrenergic Agonist, Catecholamine Start: 10-12-2020 End: 08-25-2022 Epinephrine Discontinued 0.3 MG IJ ONE TIME October 12, 2020 12:00am August 25, 2022 3:27pm famotidine 20 mg oral tablet (15 sources) Histamine-2 Receptor Antagonist Start: 10-12-2020 End: 12-28-2020 take 20 mg by mouth twice daily Famotidine Discontinued 20 MG PO TWICE A DAY October 12, 2020 12:00am December 28, 2020 4:02pm hydroCHLOROthiazide 25 mg oral tablet (20 sources) Thiazide Diuretic Start: 08-27-2020 End: 08-31-2023 take 25 mg by mouth once daily Hydrochlorothiazide Discontinued 25 MG PO DAILY 60 October 18, 2020 1:33pm December 28, 2020 4:31pm Start: 11-07-2013 End: 10-15-2017 take 12.5 mg by mouth once daily Hydrochlorothiazide Discontinued 12.5 MG PO DAILY November 07, 2013 12:00am October 15, 2017 7:38pm Start: 07-28-2011 End: 02-15-2016 take 1 tablet by mouth once daily HYDROCHLOROTHIAZIDE 12.5 MG TABS One tablet by mouth daily HYDROCHLOROTHIAZIDE [id number] Edd Berman MD levocetirizine dihydrochloride 5 mg oral tablet (15 sources) Histamine-1 Receptor Antagonist Start: 12-28-2020 End: 02-09-2022 take 5 mg by mouth once daily Levocetirizine Discontinued 5 MG PO DAILY December 28, 2020 12:00am February 09, 2022 1:11pm lidocaine hydrochloride 0.02 mg/mg topical gel (2 sources) Antiarrhythmic, Amide Local Anesthetic Start: 06-11-2024 End: 06-11-2024 lidocaine urojet 2 % 10 mL topical gel (GLYDO) Start: 06-11-2024 End: 06-11-2024 10 mL, URETHRAL, ONCE, 1 dos e, On Sun06/11/24 at 1200, APPLY PRIOR TO PROCEDURE DIRECTED MULTIPLE VITAMIN (14 sources) Start: 07-28-2011 take 1 tablet by mouth once daily MULTIVITAMINS TABS One tablet by mouth daily MULTIPLE VITAMIN [id number] Aurelia Huerta Start: 07-28-2011 End: 10-02-2012 take 1 tablet by mouth once daily MULTIVITAMINS TABS One tablet by mouth daily MULTIPLE VITAMIN [id number] Unique Zamorano RN MULTIPLE VITAMIN (10 sources) Start: 07-28-2011 take 1 tablet by mouth once daily MULTIVITAMINS TABS One tablet by mouth daily MULTIPLE VITAMIN [id number] Aurelia Huerta Start: 07-28-2011 End: 10-02-2012 take 1 tablet by mouth once daily MULTIVITAMINS TABS One tablet by mouth daily MULTIPLE VITAMIN [id number] Unique Zamorano RN ramipril 10 mg oral capsule (20 sources) Angiotensin Converting Enzyme Inhibitor Start: 10-02-2012 take 1 tablet by mouth once daily ALTACE 5 MG CAPS One tablet by mouth daily RAMIPRIL [id number] Edd Berman MD Start: 10-02-2012 take 1 tablet by bereket th once daily ALTACE 5 MG CAPS One tablet by mouth daily RAMIPRIL [id number] Edd Berman MD Start: 07-28-2011 take 1 tablet by bereket th once daily ALTACE 10 MG CAPS One tablet by mouth daily RAMIPRIL [id number] Edd Berman MD Start: 09-19-2006 End: 08-27-2020 ALTACE 10 MG CAP Take one(1) capsule daily. 0 09/19/2006 Active Problems Active Problems Problem Classification Problem Date Documented Date Episodic/Chronic Cardiac dysrhythmias (5 sources) Multiple premature ventricular complexes; Translations: [Ventricular premature depolarization] 05-21-2023 Chronic Cardiac dysrhythmias (17 sources) Bradycardia; Translations: [Bradycardia, unspecified] 02-22-2023 Episodic Conditions associated with dizziness or vertigo (14 sources) Dizziness; Translations: [Dizziness and giddiness] Episodic Conduction disorders (20 sources) Atrioventricular block; Translations: [Right bundle branch block AND left anterior fascicular block] Onset: 5 07-28-2011 Chronic Coronary atherosclerosis and other heart disease (20 sources) Coronary arteriosclerosis; Translations: [Coronary atherosclerosis] Onset: 4 11-20-2013 Chronic Coronary atherosclerosis and other heart disease (20 sources) Coronary angioplasty status; Translations: [Presence of coronary angioplasty implant and graft] Onset: 4 12-17-2013 Episodic Disorders of teeth and jaw (6 sources) Temporomandibular joint crepitus; Translations: [Other specified disorders of temporomandibular joint] Onset: 5 11-14-2024 Episodic Essential hypertension (20 sources) Hypertensive disorder; Translations: [Essential hypertension] Onset: 5 07-28-2011 Chronic Hyperplasia of prostate (4 sources) Benign prostatic hypertrophy with outflow obstruction; Translations: [Benign prostatic hyperplasia with lower urinary tract symptoms] Onset: 5 05-13-2020 Chronic Other connective tissue disease (2 sources) Myofascial pain; Translations: [Myalgia, other site] Onset: 5 11-14-2024 Episodic Other connective tissue disease (1 source) Myalgia, other site; Translations: [Myofascial pain] Onset: 5 Episodic Other diseases of kidney and ureters (1 source) Disorder of kidney and ureter, unspecified; Translations: [Disorder of kidney and ureter, unspecified] Onset: 5 Episodic Other injuries and conditions due to external causes (18 sources) Angioedema; Translations: [Angioneurotic edema, initial encounter] 12-25-2020 Episodic Other nervous system disorders (2 sources) Sleep related bruxism; 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] Onset: 5 11-14-2024 Chronic Other nervous system disorders (1 source) Sleep related bruxism; 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] Onset: 5 Chronic Thyroid disorders (1 source) Hypothyroidism, unspecified; Translations: [Hypothyroidism, unspecified] Onset: 5 Chronic Unclassified (10 sources) Long-term drug therapy; Translations: [Other intermodal dispatcher (current) drug therapy] Onset: 4 08-05-2015 Unclassified (1 source) Finding of body mass index; Translations: [Body mass index (BMI) 26.0-26.9, adult] Onset: 4 12-18-2013 Urinary tract infections (15 sources) Urinary tract infectious disease; Translations: [Urinary tract infection, site not specified] 01-08-2020 Episodic Past or Other Problems Problem Classification Problem Date Documented Date Episodic/Chronic Abdominal hernia (3 sources) Inguinal hernia; Translations: [Unilateral inguinal hernia, without obstruction or gangrene, not specified as recurrent] Onset: 06-21-2005 Resolved: 01-16-2011 01-16-2011 Episodic Acute bronchitis (1 source) Acute bronchitis, unspecified; Translations: [Acute bronchitis, unspecified] Onset: 10-12-2023 Episodic Calculus of urinary tract (3 sources) Urinary bladder stone; Translations: [Calculus in bladder] Onset: 12-01-2020 12-01-2020 Episodic Complications of surgical procedures or medical care (4 sources) Stricture of male urethra following procedure; Translations: [Postprocedural urethral stricture, male, unspecified] Onset: 12-11-2020 12-11-2020 Episodic Disorders of lipid metabolism (20 sources) Hyperlipidemia; Translations: [Hyperlipidemia, unspecified] Onset: 06-21-2005 Resolved: 01-16-2011 01-17-2012 Chronic Genitourinary symptoms and ill-defined conditions (13 sources) Poor stream of urine; Translations: [Poor urinary stream] Onset: 05-13-2020 05-13-2020 Episodic Nonspecific chest pain (12 sources) Chest pain, unspecified; Translations: [Chest pain, unspecified] Onset: 11-04-2013 11-04-2013 Episodic Other aftercare (14 sources) Long-term (current) use of other medications; Translations: [Other intermodal dispatcher (current) drug therapy] Onset: 11-13-2013 11-13-2013 Episodic Other circulatory disease (19 sources) Electrocardiogram abnormal; Translations: [Carotid bruit] Onset: 07-28-2011 07-28-2011 Episodic Other circulatory disease (5 sources) Carotid bruit; Translations: [Other specified symptoms and signs involving the circulatory and respiratory systems] Onset: 07-28-2011 07-28-2011 Episodic Other ear and sense organ disorders (3 sources) Bilateral tinnitus; Translations: [Tinnitus, bilateral] Onset: 02-20-2013 02-20-2013 Episodic Other injuries and conditions due to external causes (4 sources) Foreign body in bladder; Translations: [Foreign body in bladder, initial encounter] Onset: 06-26-2020 06-26-2020 Episodic Other lower respiratory disease (1 source) Shortness of breath; Translations: [Shortness of breath] Onset: 10-16-2023 Episodic Other male genital disorders (3 sources) Sperm granuloma of epididymis; Translations: [Other specified disorders of the male genital organs] Onset: 12-28-2021 12-28-2021 Episodic Other nutritional; endocrine; and metabolic disorders (18 sources) Body mass index (BMI) 26.0-26.9, adult; Translations: [Body mass index (BMI) 27.0-27.9, adult] Onset: 11-04-2013 12-18-2013 Episodic Other nutritional; endocrine; and metabolic disorders (5 sources) Body mass index (BMI) 27.0-27.9, adult; Translations: [Body mass index (BMI) 27.0-27.9, adult] Onset: 11-04-2013 11-04-2013 Episodic Other screening for suspected conditions (not mental disorders or infectious disease) (8 sources) Thyroid hormone tests abnormal; Translations: [Other specified abnormal findings of blood chemistry] Onset: 08-22-2016 08-22-2016 Episodic Residual codes; unclassified (3 sources) Family history of malignant neoplasm of pancreas; Translations: [Family history of malignant neoplasm of digestive organs] Onset: 01-07-2010 01-07-2010 Episodic Syncope (15 sources) Syncope and collapse; Translations: [Vasovagal syncope] Onset: 11-04-2013 11-04-2013 Episodic Results Test Name Value Interpretation Reference Range Facility [facility] 11-14-2024 CNOV Office Visit (DMFPMN ) VILLAMESSI C ([id number]) 1945 M Date Time Provider Department 11/14/24 1:00 PM KY[facility]H DIMAS [facility] During your visit today, we recorded the following information about you: Kylah Dimas, [facility] 11/14/2024 3:03 PM Signed [facility], [facility] Maxillofacial Prosthetics Date: November 14, 2024 Name: Messi Villa Messi Villa is a 79 year old year old referred by self. . Messi Villa appears to be alert, cooperative, and in no acute distress. He is accompanied to this appointment by his . CHIEF COMPLAINT: Patient presents for a diagnosis and information regarding his noted left TMJ crepitus. He has noticed crepitus L>R for several years but in late 2023 he had a flare up of pain during mastication on the left side so decided to seek a TMD consultation. Patient reports no pain today and can masticate a normal diet without pain. He does experience slight discomfort (1/10) in the left preauricular area with wide opening and incising a large bolus of food currently. Patient denies a previous history of TMJ clicking/popping or locking. His hears him snore, may stop breathing but no gasping for breath. Patient denies excessive sleepiness during the day and can carry out a normal day's activity. We discussed having a conversation with his PCP to discuss a preliminary HSS to see if he does have RANDELL. Review of Symptoms: Headache: Denies Migraines: Denies Dizziness: occasionally in the morning- we discuss avoidance of stomach sleeping and effects on the neck muscles related to postural dizziness. Tinnitus: Very faint in the background- denies HL Otalgia: Denies TMJ clicking: Denies TMJ locking: Denies Painful mastication: Denies Dysphagia: Denies Cervicalgia: Denies Daytime clenching: Denies Grinding: unclear RANDELL: see above PAST TREATMENT: Consultations: Dr. Dandre Martinez - general dentist Physical therapy: B/L following rotator cuff surgery 2020 and 2022 Imaging: Very first panorex dated 01-15-24 ( no previous panorex imaging to review for impacted #32 ) Orthotics: None Orthodontics: None Pharmacotherapy: None TMJ surgery: None HISTORY OF TRAUMA: Fell: shoulder injury 4 years ago Fell: shoulder injury 2022 . PAST SURGICAL HISTORY Procedure Laterality Date COLONOSCOPY 02/21/2011 CORONARY STENT INITIAL LCx OM2, SHERYL EXCISION PILONIDAL CYST/SINUS SIMPLE TONSILLECTOMY PRIMARY/SECONDARY Tonsillectomy PAST MEDICAL HISTORY Diagnosis Date BPH (benign prostatic hypertrophy) with urinary obstruction 06/21/2005 Dr. Jenny Santiago. CAD (coronary artery disease) 11/25/2013 Diverticulosis of colon (without mention of hemorrhage) Family history of pancreatic cancer 01/07/2010 Herpes zoster 09/26/2006 Hypertrophy of prostate with urinary obstruction and other lower urinary tract symptoms (LUTS) 06/21/2005 Internal hemorrhoids without mention of complication RT BUNDLE BRANCH BLOCK 06/21/2005 Sebaceous cyst 02/20/2013 Right occiput UNILAT INGUINAL HERNIA 06/21/2005 Unspecified essential hypertension Vasovagal syncopes 2014 post micturition Current Outpatient Medications Medication Sig vitamin D3-vitamin K2 1,250-200 mcg cap Take by mouth. amLODIPine (NORVASC) 10 mg tablet Take 10 mg by mouth once daily. hydroCHLOROthiazide (HYDRODIURIL, ESIDRIX) 25 mg tablet Take 25 mg by mouth once daily. levothyroxine 75 mcg cap Take 75 mcg by mouth daily before breakfast. codeine-guaiFENesin (ROBITUSSIN AC) 10-100 mg/5 mL syrup Take 5-10 mL by mouth four times daily as needed for Cough. May cause drowsiness. benzonatate (TESSALON PERLE) 100 mg capsule Take 1-2 capsules by mouth three times daily as needed. dutasteride (AVODART) 0.5 mg capsule Take 1 capsule by mouth once daily. clopidogrel (PLAVIX) 75 mg tablet Take 1 tablet by mouth once daily. (Patient not taking: Reported on 06/11/2024) atorvastatin (LIPITOR) 10 mg tablet Take 10 mg by mouth once daily. ALTACE 10 MG CAP Take one(1) capsule daily. ASPIRIN 81 MG TAB Take one (1) tablet daily . Current Facility-Administered Medications Medication Dose Route Frequency cephALEXin 500 mg cap(s) (KEFLEX) 500 mg ORAL As Directed cephALEXin 500 mg cap(s) (KEFLEX) 500 mg ORAL As Directed CLINICAL EXAMINATION: Range of Motion: Patient can open to 50 mm. with deviation/deflection to the Left. . Patient can move to the right lateral 12 mm. And to the left lateral 14 mm. Protrusive is 8mm. Auscultation: Right TMJ: Medial pole: Mild crepitus Opening translation: Moderate crepitus Lateral translation: Moderate crepitus Protrusion: Moderate crepitus Left TMJ: Medial pole: Moderate crepitus Opening translation: Course crepitus Lateral translation: Course crepitus Protrusion: Course crepitus Palpation: Right TMJ: Retrodiskal ti (more content not included)... Normal [facility] Basic Metabolic Profile (BMP )on 09-10-2024 BUN/CRE 23.4 RATIO High 10-20 [facility] Comment on above: Order Comment: Order Date: 09/09/24 Order Info: 0667-1 - BMP Performed By: #### L 500.2500, L100.0100, L501.9985 #### [facility] [address] [place], [address] CA,Total 8.9 mg/dL Normal 8.5-10.1 [facility] Comment on above: Order Comment: Order Date: 09/09/24 Order Info: 0667-1 - BMP Performed By: #### L 500.2500, L100.0100, L501.9985 #### [facility] [address] [place], [address] Chloride [Moles/Vol] 101 mmol/L Normal 98-[address] [facility] [facility] Comment on above: Order Comment: Order Date: 09/09/24 Order Info: 0667-1 - BMP Performed By: #### L 500.2500, L100.0100, L501.9985 #### [facility] [address] [place], [address] CO2 [Moles/Vol] 27.0 mmol/L Normal 21.0-32.0 [facility] Comment on above: Order Comment: Order Date: 09/09/24 Order Info: 0667-1 - BMP Performed By: #### L 500.2500, L100.0100, L501.9985 #### [facility] [address] [place], [address] Creatinine [Mass/Vol] 1.28 mg/dL Normal 0.70-1.30 [facility] Comment on above: Order Comment: Order Date: 09/09/24 Order Info: 0667-1 - BMP Result Comment: The validity of the calculated GFR GFRAA in patients over 70 years has not been determined. Clinical correlation is essential. Performed By: #### L 500.2500, L100.0100, L501.9985 #### [facility] [address] [place], [address] EST GFR - AA 70 mL/min Normal >60 [facility] Comment on above: Order Comment: Order Date: 09/09/24 Order Info: 0667-1 - BMP Result Comment: Afri can Thai GFR Calc Performed By: #### L 500.2500, L100.0100, L501.9985 #### [facility] [address] [place], [address] GAP 7 Normal 5-15 [facility] Comment on above: Order Comment: Order Date: 09/09/24 Order Info: 0667- - BMP Performed By: #### L 500.2500, L100.0100, L501.9985 #### [facility] [address] [place], [address] GFR/1.73 sq M.predicted among non-blacks MDRD (S/P/Bld) [Vol rate/Area] 58 mL/min/{1.73_m2} Low >60 [facility] Comment on above: Order Comment: Order Date: 09/09/24 Order Info: 0667- - BMP Result Comment: Non- GFR Calc Performed By: #### L 500.2500, L100.0100, L501.9985 #### [facility] [address] [place], [address] Glucose [Mass/Vol] 114 mg/dL High 74-106 [facility] Comment on above: Order Comment: Order Date: 09/09/24 Order Info: 0667- - BMP Result Comment: Fast ing Glucose result from 100 to 125 mg/dL suggests IMPAIRED HOMEOSTASIS per A.D.A. criteria. Performed By: #### L 500.2500, L100.0100, L501.9985 #### [facility] [address] [place], [address] Potassium [Moles/Vol] 3.7 mmol/L Normal 3.5-5.1 [facility] Comment on above: Order Comment: Order Date: 09/09/24 Order Info: 0667-1 - BMP Performed By: #### L 500.2500, L100.0100, L501.9985 #### [facility] [address] [place], [address] Sodium [Moles/Vol] 135 mmol/L Low 136-145 [facility] Comment on above: Order Comment: Order Date: 09/09/24 Order Info: 0667- - BMP Performed By: #### L 500.2500, L100.0100, L501.9985 #### [facility] [address] [place], [address] Urea nitrogen [Mass/Vol] 30 mg/dL High 7-18 [facility] Comment on above: Order Comment: Order Date: 09/09/24 Order Info: 0667- - BMP Performed By: #### L 500.2500, L100.0100, L501.9985 #### [facility] [address] [place], [address] CBC W/Diff, Automatedon 08-30 Absolute Lymph 1.60 X10 3/uL Normal 0.83-4.51 [facility] Comment on above: Order Comment: Order Date: 09/09/24 Order Info: 0184- - CBCD Performed By: #### L 500.2500, L100.0100, L501.9985 #### [facility] [address] [place], [address] Absolute Neut 5.1 X10 3/uL Normal 2.0-7.7 [facility] Comment on above: Order Comment: Order Date: 09/09/24 Order Info: 0184- - CBCD Performed By: #### L 500.2500, L100.0100, L501.9985 #### [facility] [address] [place], [address] Basophils/100 WBC (Bld) 0.1 % Normal 0-1 [facility] Comment on above: Order Comment: Order Date: 09/09/24 Order Info: 0184-1 - CBCD Performed By: #### L 500.2500, L100.0100, L501.9985 #### [facility] [address] [place], [address] Eosinophils/100 WBC (Bld) 4.1 % Normal 0-5 [facility] Comment on above: Order Comment: Order Date: 09/09/24 Order Info: 0184-1 - CBCD Performed By: #### L 500.2500, L100.0100, L501.9985 #### [facility] [address] [place], [address] Erythrocyte distribution width (RBC) [Ratio] 13.1 % Normal 11.6-14.6 [facility] Comment on above: Order Comment: Order Date: 09/09/24 Order Info: 0184-1 - CBCD Performed By: #### L 500.2500, L100.0100, L501.9985 #### [facility] [address] [place], [address] Hematocrit (Bld) [Volume fraction] 41.8 % Normal 40-54 [facility] Comment on above: Order Comment: Order Date: 09/09/24 Order Info: 0184- - CBCD Performed By: #### L 500.2500, L100.0100, L501.9985 #### [facility] [address] [place], [address] Hemoglobin (Bld) [Mass/Vol] 13.9 g/dL Normal 13.0-16.5 [facility] Comment on above: Order Comment: Order Date: 09/09/24 Order Info: 0184-1 - CBCD Performed By: #### L 500.2500, L100.0100, L501.9985 #### [facility] [address] [place], [address] IG% 0.400 Normal 0.0-0.9 [facility] Comment on above: Order Comment: Order Date: 09/09/24 Order Info: 0184-1 - CBCD Result Comment: IG% - Immature Granulocytes (promyelocytes, myelocytes and metamyelocytes) > 1% indicates that a LEFT SHIFT is Present. Performed By: #### L 500.2500, L100.0100, L501.9985 #### [facility] [address] [place], [address] Lymphocytes/100 WBC (Bld) 19.8 % Normal 19-41 [facility] Comment on above: Order Comment: Order Date: 09/09/24 Order Info: 0184-1 - CBCD Performed By: #### L 500.2500, L100.0100, L501.9985 #### [facility] [address] [place], [address] MCH (RBC) [Entitic mass] 31.7 pg Normal 27.0-32.0 [facility] Comment on above: Order Comment: Order Date: 09/09/24 Order Info: 0184-1 - CBCD Performed By: #### L 500.2500, L100.0100, L501.9985 #### [facility] [address] [place], [address] MCHC (RBC) [Mass/Vol] 33.3 g/dL Normal 32-36 [facility] Comment on above: Order Comment: Order Date: 09/09/24 Order Info: 0184-1 - CBCD Performed By: #### L 500.2500, L100.0100, L501.9985 #### [facility] [address] [place], [address] MCV (RBC) [Entitic vol] 95.2 fL High 80-94 [facility] Comment on above: Order Comment: Order Date: 09/09/24 Order Info: 0184-1 - CBCD Performed By: #### L 500.2500, L100.0100, L501.9985 #### [facility] [address] [place], [address] Monocytes/100 WBC (Bld) 12.0 % High 0-10 [facility] Comment on above: Order Comment: Order Date: 09/09/24 Order Info: 0184-1 - CBCD Performed By: #### L 500.2500, L100.0100, L501.9985 #### [facility] [address] [place], [address] Neutrophils/100 WBC (Bld) 63.6 % Normal 47-70 [facility] Comment on above: Order Comment: Order Date: 09/09/24 Order Info: 0184-1 - CBCD Performed By: #### L 500.2500, L100.0100, L501.9985 #### [facility] [address] [place], [address] Nucleated RBC (Bld) [#/Vol] 0 10*3/uL Normal 0-5 [facility] Comment on above: Order Comment: Order Date: 09/09/24 Order Info: 0184-1 - CBCD Performed By: #### L 500.2500, L100.0100, L501.9985 #### [facility] [address] [place], [address] Platelet mean volume (Bld) [Entitic vol] 11.1 fL Normal 6.2-12.0 [facility] Comment on above: Order Comment: Order Date: 09/09/24 Order Info: 0184-1 - CBCD Performed By: #### L 500.2500, L100.0100, L501.9985 #### [facility] [address] [place], [address] Platelets (Bld) [#/Vol] 225 10*3/uL Normal 150-450 [facility] Comment on above: Order Comment: Order Date: 09/09/24 Order Info: 0184-1 - CBCD Performed By: #### L 500.2500, L100.0100, L501.9985 #### [facility] [address] [place], [address] RBC (Bld) [#/Vol] 4.39 10*6/uL Low 4.6-6.2 [facility] Comment on above: Order Comment: Order Date: 09/09/24 Order Info: 0184-1 - CBCD Performed By: #### L 500.2500, L100.0100, L501.9985 #### [facility] [address] [place], [address] RDW SD 46.3 fl High 35.1-43.9 [facility] Comment on above: Order Comment: Order Date: 09/09/24 Order Info: 0184-1 - CBCD Performed By: #### L 500.2500, L100.0100, L501.9985 #### [facility] [address] [place], [address] WBC (Bld) [#/Vol] 8.1 10*3/uL Normal 4.4-11.0 [facility] Comment on above: Order Comment: Order Date: 09/09/24 Order Info: 0184-1 - CBCD Performed By: #### L 500.2500, L100.0100, L501.9985 #### [facility] [address] [place], [address] Hemoglobin A1con 09-10-2024 HbA1c (Bld) [Mass fraction] 6.2 % High 3.8-5.6 [facility] Comment on above: Order Comment: Order Date: 09/09/24 Order Info: 4548-4 - A1C Result Comment: Norm al < 5.7 % Prediabetic 5.7 - 6.4 % Diabetic >or= 6.5 % Please note range changes. Performed By: #### L 500.2500, L100.0100, L501.9985 #### [facility] [address] [place], [address] Hemoglobin A1con 09-07-2024 HbA1c (Bld) [Mass fraction] 6.0 % High 3.8-5.6 [facility] Comment on above: Order Comment: Order Date: 05/13/24 Order Info: 0184-1 - CBCD Result Comment: Norm al < 5.7 % Prediabetic 5.7 - 6.4 % Diabetic >or= 6.5 % Please note range changes. Performed By: #### L 100.0100 #### [facility] [address] [place], [address] CBC W/Diff, Automatedon 02-0 7-2024 Absolute Lymph 1.01 X10 3/uL Normal 0.83-4.51 [facility] Comment on above: Order Comment: Order Date: 05/16/24Order Info: 0184-1 - CBCD Performed By: #### L 501.9985, L500.4050, L501.9520, L506.0400, L100.0100, L500.4100 ####[facility] [address] [place], [address] Absolute Neut 14.3 X10 3/uL High 2.0-7.7 [facility] Comment on above: Order Comment: Order Date: 05/16/24Order Info: 0184-1 - CBCD Performed By: #### L 501.9985, L500.4050, L501.9520, L506.0400, L100.0100, L500.4100 ####[facility] [address] [place], [address] Basophils/100 WBC (Bld) 0.1 % Normal 0-1 [facility] Comment on above: Order Comment: Order Date: 05/16/24Order Info: 0184-1 - CBCD Performed By: #### L 501.9985, L500.4050, L501.9520, L506.0400, L100.0100, L500.4100 ####[facility] [address] [place], [address] Eosinophils/100 WBC (Bld) 0.0 % Normal 0-5 [facility] Comment on above: Order Comment: Order Date: 05/16/24Order Info: 0184-1 - CBCD Performed By: #### L 501.9985, L500.4050, L501.9520, L506.0400, L100.0100, L500.4100 ####[facility] [address] [place], [address] Erythrocyte distribution width (RBC) [Ratio] 13.4 % Normal 11.6-14.6 [facility] Comment on above: Order Comment: Order Date: 05/16/24Order Info: 0184- - CBCD Performed By: #### L 501.9985, L500.4050, L501.9520, L506.0400, L100.0100, L500.4100 ####[facility] [address] [place], [address] Hematocrit (Bld) [Volume fraction] 40.6 % Normal 40-54 [facility] Comment on above: Order Comment: Order Date: 05/16/24Order Info: 0184- - CBCD Performed By: #### L 501.9985, L500.4050, L501.9520, L506.0400, L100.0100, L500.4100 ####[facility] [address] [place], [address] Hemoglobin (Bld) [Mass/Vol] 14.3 g/dL Normal 13.0-16.5 [facility] Comment on above: Order Comment: Order Date: 05/16/24Order Info: 0184-1 - CBCD Performed By: #### L 501.9985, L500.4050, L501.9520, L506.0400, L100.0100, L500.4100 ####[facility] [address] [place], [address] IG% 0.500 Normal 0.0-0.9 [facility] Comment on above: Order Comment: Order Date: 05/16/24Order Info: 0184-1 - CBCD Result Comment: IG% - Immature Granulocytes (promyelocytes, myelocytes and metamyelocytes) > 1% indicates that a LEFT SHIFT is Present. Performed By: #### L 501.9985, L500.4050, L501.9520, L506.0400, L100.0100, L500.4100 ####[facility] [address] [place], [address] Lymphocytes/100 WBC (Bld) 6.3 % Low 19-41 [facility] Comment on above: Order Comment: Order Date: 05/16/24Order Info: 0184-1 - CBCD Performed By: #### L 501.9985, L500.4050, L501.9520, L506.0400, L100.0100, L500.4100 ####[facility] [address] [place], [address] MCH (RBC) [Entitic mass] 32.6 pg High 27.0-32.0 [facility] Comment on above: Order Comment: Order Date: 05/16/24Order Info: 0184-1 - CBCD Performed By: #### L 501.9985, L500.4050, L501.9520, L506.0400, L100.0100, L500.4100 ####[facility] [address] [place], [address] MCHC (RBC) [Mass/Vol] 35.2 g/dL Normal 32-36 [facility] Comment on above: Order Comment: Order Date: 05/16/24Order Info: 0184-1 - CBCD Performed By: #### L 501.9985, L500.4050, L501.9520, L506.0400, L100.0100, L500.4100 ####[facility] [address] [place], [address] MCV (RBC) [Entitic vol] 92.7 fL Normal 80-94 [facility] Comment on above: Order Comment: Order Date: 05/16/24Order Info: 0184-1 - CBCD Performed By: #### L 501.9985, L500.4050, L501.9520, L506.0400, L100.0100, L500.4100 ####[facility] [address] [place], [address] Monocytes/100 WBC (Bld) 3.8 % Normal 0-10 [facility] Comment on above: Order Comment: Order Date: 05/16/24Order Info: 018- - CBCD Performed By: #### L 501.9985, L500.4050, L501.9520, L506.0400, L100.0100, L500.4100 ####[facility] [address] [place], [address] Neutrophils/100 WBC (Bld) 89.3 % High 47-70 [facility] Comment on above: Order Comment: Order Date: 05/16/24Order Info: 018- - CBCD Performed By: #### L 501.9985, L500.4050, L501.9520, L506.0400, L100.0100, L500.4100 ####[facility] [address] [place], [address] Nucleated RBC (Bld) [#/Vol] 0 10*3/uL Normal 0-5 [facility] Comment on above: Order Comment: Order Date: 05/16/24Order Info: 018- - CBCD Performed By: #### L 501.9985, L500.4050, L501.9520, L506.0400, L100.0100, L500.4100 ####[facility] [address] [place], [address] Platelet mean volume (Bld) [Entitic vol] 10.2 fL Normal 6.2-12.0 [facility] Comment on above: Order Comment: Order Date: 05/16/24Order Info: 0184-1 - CBCD Performed By: #### L 501.9985, L500.4050, L501.9520, L506.0400, L100.0100, L500.4100 ####[facility] [address] [place], [address] Platelets (Bld) [#/Vol] 248 10*3/uL Normal 150-450 [facility] Comment on above: Order Comment: Order Date: 05/16/24Order Info: 0184-1 - CBCD Performed By: #### L 501.9985, L500.4050, L501.9520, L506.0400, L100.0100, L500.4100 ####[facility] [address] [place], [address] RBC (Bld) [#/Vol] 4.38 10*6/uL Low 4.6-6.2 [facility] Comment on above: Order Comment: Order Date: 05/16/24Order Info: 0184- - CBCD Performed By: #### L 501.9985, L500.4050, L501.9520, L506.0400, L100.0100, L500.4100 ####[facility] [address] [place], [address] RDW SD 45.5 fl High 35.1-43.9 [facility] Comment on above: Order Comment: Order Date: 05/16/24Order Info: 0184- - CBCD Performed By: #### L 501.9985, L500.4050, L501.9520, L506.0400, L100.0100, L500.4100 ####[facility] [address] [place], [address] WBC (Bld) [#/Vol] 16.0 10*3/uL High 4.4-11.0 [facility] Comment on above: Order Comment: Order Date: 05/16/24Order Info: 0184-1 - CBCD Performed By: #### L 501.9985, L500.4050, L501.9520, L506.0400, L100.0100, L500.4100 ####[facility] [address] [place], [address] Comprehensive Metabolic Prof ilon 09-05-2024 Albumin [Mass/Vol] 3.6 g/dL Normal 3.2-5.0 [facility] Comment on above: Order Comment: Order Date: 05/16/24Order Info: 86-1 - CMPOrder Info: [id number] - LIPIDOrder Info: 3 - TSHOrder Info: [id number] - T4F Performed By: #### L 501.9985, L500.4050, L501.9520, L506.0400, L100.0100, L500.4100 ####[facility] [address] [place], [address] Albumin/Globulin [Mass ratio] 0.9 {ratio} Normal 0.9-2.4 [facility] Comment on above: Order Comment: Order Date: 05/16/24Order Info: 86-1 - CMPOrder Info: [id number] - LIPIDOrder Info: 3 - TSHOrder Info: 3024-7 - T4F Performed By: #### L 501.9985, L500.4050, L501.9520, L506.0400, L100.0100, L500.4100 ####[facility] [address] [place], [address] ALK P 91 U/L Normal 45-117 [facility] Comment on above: Order Comment: Order Date: 05/16/24Order Info: 86-1 - CMPOrder Info: [id number] - LIPIDOrder Info: 3 - TSHOrder Info: 3024-7 - T4F Performed By: #### L 501.9985, L500.4050, L501.9520, L506.0400, L100.0100, L500.4100 ####[facility] [address] [place], [address] ALT [Catalytic activity/Vol] 25 U/L Normal 16-61 [facility] Comment on above: Order Comment: Order Date: 05/16/24Order Info: 0786-1 - CMPOrder Info: [id number] - LIPIDOrder Info: [id number] - TSHOrder Info: 3024-7 - T4F Performed By: #### L 501.9985, L500.4050, L501.9520, L506.0400, L100.0100, L500.4100 ####[facility] [address] [place], [address] AST [Catalytic activity/Vol] 20 U/L Normal 15-37 [facility] Comment on above: Order Comment: Order Date: 05/16/24Order Info: 07-1 - CMPOrder Info: [id number] - LIPIDOrder Info: 63 - TSHOrder Info: [id number] - T4F Performed By: #### L 501.9985, L500.4050, L501.9520, L506.0400, L100.0100, L500.4100 ####[facility] [address] [place], [address] Bilirubin [Mass/Vol] 0.50 mg/dL Normal 0.20-1.[address] [facility] Comment on above: Order Comment: Order Date: 05/16/24Order Info: 07-1 - CMPOrder Info: [id number] - LIPIDOrder Info: 6-3 - TSHOrder Info: 3024-7 - T4F Result Comment: For patients on eltrombopag therapy, use of Dimension [place] TBIL is not recommended. Performed By: #### L 501.9985, L500.4050, L501.9520, L506.0400, L100.0100, L500.4100 ####[facility] [address] [place], [address] BUN/CRE 31.7 RATIO High 10-20 [facility] Comment on above: Order Comment: Order Date: 05/16/24Order Info: 785-1 - CMPOrder Info: [id number] - LIPIDOrder Info: [id number] - TSHOrder Info: 3024-7 - T4F Performed By: #### L 501.9985, L500.4050, L501.9520, L506.0400, L100.0100, L500.4100 ####[facility] [address] [place], [address] CA,Total 9.3 mg/dL Normal 8.5-10.1 [facility] Comment on above: Order Comment: Order Date: 05/16/24Order Info: 785- - CMPOrder Info: [id number] - LIPIDOrder Info: 3 - TSHOrder Info: 3024-7 - T4F Performed By: #### L 501.9985, L500.4050, L501.9520, L506.0400, L100.0100, L500.4100 ####[facility] [address] [place], [address] Chloride [Moles/Vol] 103 mmol/L Normal 98-[address] [facility] Comment on above: Order Comment: Order Date: 05/16/24Order Info: 785- - CMPOrder Info: [id number] - LIPIDOrder Info: 3 - TSHOrder Info: 3024-7 - T4F Performed By: #### L 501.9985, L500.4050, L501.9520, L506.0400, L100.0100, L500.4100 ####[facility] [address] [place], [address] CO2 [Moles/Vol] 28.0 mmol/L Normal 21.0-32.0 [facility] Comment on above: Order Comment: Order Date: 05/16/24Order Info: 785- - CMPOrder Info: [id number] - LIPIDOrder Info: 6-3 - TSHOrder Info: 3024-7 - T4F Performed By: #### L 501.9985, L500.4050, L501.9520, L506.0400, L100.0100, L500.4100 ####[facility] [address] [place], [place], [address] Creatinine [Mass/Vol] 1.42 mg/dL High 0.70-1.30 [facility] Comment on above: Order Comment: Order Date: 05/16/24Order Info: 86-1 - CMPOrder Info: [id number] - LIPIDOrder Info: [id number] - TSHOrder Info: 3024-01 - T4F Result Comment: The validity of the calculated GFR GFRAA in patients over 70 years has not been determined. Clinical correlation is essential. Performed By: #### L 501.9985, L500.4050, L501.9520, L506.0400, L100.0100, L500.4100 ####[facility] [address] [place], [place], [address] EST GFR - AA 62 mL/min Normal >60 [facility] Comment on above: Order Comment: Order Date: 05/16/24Order Info: [id number] - CMPOrder Info: - LIPIDOrder Info: [id number] - TSHOrder Info: 3024-01 - T4F Result Comment: Afri can Thai GFR Calc Performed By: #### L 501.9985, L500.4050, L501.9520, L506.0400, L100.0100, L500.4100 ####[facility] [address] [place], [address] GAP 7 Normal 5-15 [facility] Comment on above: Order Comment: Order Date: 05/16/24Order Info: 785- - CMPOrder Info: [id number] - LIPIDOrder Info: [id number] - TSHOrder Info: 3024-01 - T4F Performed By: #### L 501.9985, L500.4050, L501.9520, L506.0400, L100.0100, L500.4100 ####[facility] [address] [place], [place], [id number] GFR/1.73 sq M.predicted among non-blacks MDRD (S/P/Bld) [Vol rate/Area] 51 mL/min/{1.73_m2} Low >60 [facility] Comment on above: Order Comment: Order Date: 05/16/24Order Info: 86-1 - CMPOrder Info: [id number] - LIPIDOrder Info: 3 - TSHOrder Info: 7 - T4F Result Comment: Non- GFR Calc Performed By: #### L 501.9985, L500.4050, L501.9520, L506.0400, L100.0100, L500.4100 ####[facility] [address] [place], [place], [phone] Globulin (S) [Mass/Vol] 4.0 g/dL Normal 2.2-4.2 [facility] Comment on above: Order Comment: Order Date: 05/16/24Order Info: 785- - CMPOrder Info: [id number] - LIPIDOrder Info: [id number] - TSHOrder Info: 7 - T4F Performed By: #### L 501.9985, L500.4050, L501.9520, L506.0400, L100.0100, L500.4100 ####[facility] [address] [place], [place], [phone]) Glucose [Mass/Vol] 181 mg/dL High 74-106 [facility] Comment on above: Order Comment: Order Date: 05/16/24Order Info: 86-1 - CMPOrder Info: [id number] - LIPIDOrder Info: 3 - TSHOrder Info: 3024-7 - T4F Result Comment: Fast ing Glucose result greater than or equal to 126 mg/dL suggests DIABETES MELLITUS per A.D.A. criteria. Performed By: #### L 501.9985, L500.4050, L501.9520, L506.0400, L100.0100, L500.4100 ####[facility] [address] [place], [address] Potassium [Moles/Vol] 3.7 mmol/L Normal 3.5-5.1 [facility] Comment on above: Order Comment: Order Date: 05/16/24Order Info: 0786-1 - CMPOrder Info: [id number] - LIPIDOrder Info: [id number] - TSHOrder Info: 3024-7 - T4F Performed By: #### L 501.9985, L500.4050, L501.9520, L506.0400, L100.0100, L500.4100 ####[facility] [address] [place], [address] Sodium [Moles/Vol] 138 mmol/L Normal 136-145 [facility] Comment on above: Order Comment: Order Date: 05/16/24Order Info: 785- - CMPOrder Info: [id number] - LIPIDOrder Info: 6-3 - TSHOrder Info: 3024-7 - T4F Performed By: #### L 501.9985, L500.4050, L501.9520, L506.0400, L100.0100, L500.4100 ####[facility] [address] [place], [address] T PROT 7.6 g/dL Normal 6.4-8.2 [facility] Comment on above: Order Comment: Order Date: 05/16/24Order Info: [id number]- - CMPOrder Info: [id number] - LIPIDOrder Info: [id number] - TSHOrder Info: [id number] - T4F Performed By: #### L 501.9985, L500.4050, L501.9520, L506.0400, L100.0100, L500.4100 ####[facility] [address] [place], [address] Urea nitrogen [Mass/Vol] 45 mg/dL High 7-18 [facility] Comment on above: Order Comment: Order Date: 10/18/24Order Info: [id number] - CMPOrder Info: [id number] - LIPIDOrder Info: 3 - TSHOrder Info: [id number] - T4F Performed By: #### L 501.9985, L500.4050, L501.9520, L506.0400, L100.0100, L500.4100 ####[facility] [address] [place], [address] Lipid Profileon 09-05-2024 Cholesterol [Mass/Vol] 138 mg/dL Normal 200 [facility] Comment on above: Order Comment: Order Date: 05/16/24Order Info: [id number] - CMPOrder Info: [id number] - LIPIDOrder Info: [id number] - TSHOrder Info: [id number] - T4F Result Comment: <200 mg/dL Desirable 200-240 mg/dL Borderline >240 mg/dL High Risk Performed By: #### L 501.9985, L500.4050, L501.9520, L506.0400, L100.0100, L500.4100 ####[facility] [address] [place], [address] Cholesterol in HDL [Mass/Vol] 74 mg/dL Normal [facility] Comment on above: Order Comment: Order Date: 05/16/24Order Info: [id number]- - CMPOrder Info: [id number] - LIPIDOrder Info: 3 - TSHOrder Info: [id number] - T4F Result Comment: The drugs N-Acetylcysteine and Metamizole may falsely depress this assay. Reference Range HDL <40 mg/dL Low HDL Cholesterol HDL >or= 60 mg/dL High HDL Cholesterol Performed By: #### L 501.9985, L500.4050, L501.9520, L506.0400, L100.0100, L500.4100 ####[facility] [address] [place], [address] Cholesterol in LDL [Mass/Vol] 50 mg/dL Normal 0-130 [facility] Comment on above: Order Comment: Order Date: 05/16/24Order Info: [id number] - CMPOrder Info: [id number] - LIPIDOrder Info: 3 - TSHOrder Info: 7 - T4F Performed By: #### L 501.9985, L500.4050, L501.9520, L506.0400, L100.0100, L500.4100 ####[facility] [address] [place], [place], [id number] Cholesterol in VLDL [Mass/Vol] 14 mg/dL Normal 5-40 [facility] Comment on above: Order Comment: Order Date: 05/16/24Order Info: 07 - CMPOrder Info: [id number] - LIPIDOrder Info: [id number] - TSHOrder Info: 7 - T4F Performed By: #### L 501.9985, L500.4050, L501.9520, L506.0400, L100.0100, L500.4100 ####[facility] [address] [place], [place], [phone] Triglyceride [Mass/Vol] 69 mg/dL Normal [facility] Comment on above: Order Comment: Order Date: 05/16/24Order Info: 07 - CMPOrder Info: - LIPIDOrder Info: 3 - TSHOrder Info: 7 - T4F Result Comment: The drugs N-Acetylcysteine and Metamizole may falsely depress this assay. Serum Triglycerides Reference Interval Normal <150 mg/dL Borderline high 150 - 199 mg/dL High 200 - 499 mg/dL Very High > or = 500 mg/dL Performed By: #### L 501.9985, L500.4050, L501.9520, L506.0400, L100.0100, L500.4100 ####[facility] [address] [place], [place], [id number] T4 Free Directon 09-05-2024 T4 FREE DIRECT 1.20 ng/dL Normal 0.76-1.46 [facility] Comment on above: Order Comment: Order Date: 05/13/24 Order Info: [id number] - CBCD Performed By: #### L 100.0100 #### [facility] [address] [place], [address] Thyroid Stim Hormone (TSH)on 09-05-2024 TSH 0.553 uIU/mL Normal 0.358-3.740 [facility] Comment on above: Order Comment: Order Date: 05/13/24 Order Info: [id number] - CBCD Performed By: #### L 100.0100 #### [facility] [address] [place], [address] Stress Reporton 07-07-2024 Stress Report [facility] [address] [place] [address] MR#: [id number] Acct: [id number] Name: MESSI VILLA Rep #: [id number] : 1945 79 From: Edd Berman MD Primary Care: Dr. Moiz Elise MD Status: REG CLI Referring Dr: Edd Berman MD Sex: M C Stress Test Report Exercise myocardial perfusion stress test. 79-year-old male with a history of coronary artery disease Stress protocol: Resting EKG demonstrates sinus bradycardia with a rate of 52 bpm left anterior fascicular block and a right bundle branch block and resting blood pressure is 142/76 mmHg. The patient exercised according to the regular Gamaliel protocol for a total duration of 9 minutes attaining a maximum heart rate of 131 bpm which was 92% of maximum predicted heart rate; the maximum workload was 10.3 metabolic equivalents. At rest there were no ST or T wave changes noted to suggest ischemia and at peak exercise upsloping ST changes only were noted which did not meet the criteria for ischemia. No clinical angina was noted the test was terminated due to the target heart rate being achieved/fatigue. The peak blood pressure was 182/70 mmHg. Rate-pressure product was 22,500. Myocardial perfusion protocol. 11 point mCi of technetium 99m sestamibi was injected at rest. The patient exercised according to regular Gamaliel protocol for total duration of 9 minutes and at peak exercise 34.3 mCi of technetium 99m sestamibi was injected stress images were obtained stress and rest images were reconstructed in comparing the short axis vertical long and horizontal long axis. Gated images were also obtained. Perfusion SPECT analysis: Review of the stress images demonstrate normal uptake of tracer noted in all areas of the myocardium. The resting images similarly demonstrate normal uptake of tracer noted in all areas of the myocardium. No areas of reversibility are noted to suggest ischemia no previous infarct was noted. Gated SPECT analysis: The gated ejection fraction is 51%. Conclusion: Normal exercise myocardial perfusion stress test at a high workload Preserved ejection fraction. Occasional premature ventricular complexes noted and no conduction system disorder present 07/07/24 1632 Date Edd Berman MD CC: Dr. Edd Berman MD; Dr. 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2024 [facility] MESSI VILLA ([id number]) 1945 M Date Time Provider Department 06/25/24 [facility] During your visit today, we recorded the following information about you: Sue Nava 06/25/2024 1:32 PM Signed June 25, 2024 Dear Messi Villa, Thank you for your request. Please call to confirm cancellation request, next availability for reschedule is possibly and not guaranteed NOVEMBER/2024 Please call [phone] Thank you for choosing [facility] for your healthcare. Sincerely, Your Care Team Allergies As of Date: 06/25/2024 Noted Allergy Reaction RAMIPRIL 12/01/2020 14 - Other: See Comments Comments: Tongue swelling. RELAFEN (NABUMETONE) 06/20/2005 8 - GI Upset Date Reviewed: 06/11/2024 Reviewed by: Conchita Ariza OCCA - Fully Assessed Reason for Visit: Appointment [186] Prescriptions as of 06/25/2024 - vitamin D3-vitamin K2 1,250-200 mcg cap Take by mouth. - amLODIPine (NORVASC) 10 mg tablet Take 10 mg by mouth once daily. - hydroCHLOROthiazide (HYDRODIURIL, ESIDRIX) 25 mg tablet Take 25 mg by mouth once daily. - levothyroxine 75 mcg cap Take 75 mcg by mouth daily before breakfast. - codeine-guaiFENesin (ROBITUSSIN AC) 10-100 mg/5 mL syrup Take 5-10 mL by mouth four times daily as needed for Cough. May cause drowsiness. - benzonatate (TESSALON PERLE) 100 mg capsule Take 1-2 capsules by mouth three times daily as needed. - dutasteride (AVODART) 0.5 mg capsule Take 1 capsule by mouth once daily. - clopidogrel (PLAVIX) 75 mg tablet Take 1 tablet by mouth once daily. - atorvastatin (LIPITOR) 10 mg tablet Take 10 mg by mouth once daily. - ALTACE 10 MG CAP Take one(1) capsule daily. - ASPIRIN 81 MG TAB Take one (1) tablet daily . 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] 02/20/2013 CAD (coronary artery disease) [I25.10] 11/25/2013 Vasovagal syncope [R55] 10/25/2015 Abnormal TSH [R79.89] 08/22/2016 Weak urinary stream [R39.12] 05/13/2020 Screening for genitourinary condition [Z13.89] 06/02/2020 Foreign body in bladder [T19.1XXA] 06/26/2020 Bladder stone [N21.0] 12/01/2020 Postprocedural male urethral stricture [N99.114]12/11/2020 Pyuria [R82.81] 12/28/2021 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 [place] [address] OFFICE VISIT Date of Service: 06/13/24 MR#: [id number] Acct: [id number] Name: MESSI VILLA Rep #: [id number] : 1945 Provider: Dr. Edd Berman MD Age/Sex: 79/M Location: [facility] Status: Signed HPI HPI History of Present Illness Details: This is a 79 year-old male who presents to the office today for a cardiovascular visit. He has a history of coronary artery disease status post angioplasty and stenting of the obtuse marginal branch. He also has a history of a bifascicular block. He had been doing well compliant with all his medications and in July of 2020 developed angioedema. His lisinopril was discontinued and he was put on Norvasc and hydrochlorothiazide. He had another episode in September 2020 with angioedema again. He has been seen by an signals collection technician and he is on antihistamine. He underwent stress testing in December 2019 where he exercised to a high metabolic workload and conduction system was noted to be normal. He underwent a successful left shoulder rotator cuff surgery 08/02/23. He is currently wearing a sling. From a cardiac standpoint, the patient is doing well. He denies any palpitations, chest pain, pressure or heaviness. He denies SOB, Orthopnea, and PND. He does not have bleeding issues; no blood in urine, stool or nosebleeds. He denies any decrease in energy level, myalgias, or claudication. He does not have edema, or sudden weight gain. He denies dizziness, lightheadedness, syncopal or near syncopal episodes, and headaches. 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 Accompanied by: Self Is patient in pain?: No Allergies ramipril Allergy (Severe, Verified 06/13/24 13:12) Angioedema Medications ???Medication ???Instructions ???Recorded ???Confirmed ???Type aspirin 81 mg chewable tablet 81 mg PO DAILY@0800 [facility] 11/07/13 06/13/24 History cholecalciferol (vitamin D3) 50 100 mcg PO DAILY 02/09/22 06/13/24 History mcg (2,000 unit) capsule levothyroxine 88 mcg tablet 100 mcg PO DAILY 02/22/23 06/13/24 History atorvastatin 10 mg tablet 10 mg PO QDAY #90 tabs 08/31/23 06/13/24 Rx hydrochlorothiazide 25 mg tablet 25 mg PO DAILY #90 tabs 08/31/23 06/13/24 Rx amlodipine 10 mg tablet 10 mg PO DAILY #90 tabs 06/13/24 06/13/24 Rx Have you fallen in the past year?: No PFSH Medical History Dizziness Preop cardiovascular exam Hypothyroidism Angioedema Atherosclerotic heart disease [place] coronary artery w/angina pectoris Essential (primary) hypertension Loss of consciousness Multiple thyroid nodules Right bundle branch block (RBBB) plus left anterior (LA) hemiblock Hyperlipidemia Atherosclerotic heart disease of [place] coronary artery without angina pectoris Surgical History History of repair of left rotator cuff History of repair of right rotator cuff History of coronary artery stent placement (12/05/13) History of tonsillectomy History of excision of pilonidal cyst History of left heart catheterization (10/2013) Family History Father CAD (coronary artery disease) cabg Mother , age 60 Pancreatic cancer Social History Smoking Status: Never smoker alcohol intake: current alcohol intake frequency: holidays/special occasions only Alcohol type: beer and wine substance use type: does not use caffeine: No ROS Const Const: Negative for fatigue, weakness, headache(s), daytime sleepiness or difficulty sleeping ENT ENT: Negative for headache(s), dizziness or Nosebleed/epistaxis Cardio Chest Pain: No Palpitations: No Edema: None Resp Respiratory: Negative for SOB with activity, SOB at rest, SOB orthopnea SOB lying down or Cough GI GI: Negative nausea, vomiting or heartburn Neuro Neuro: Negative for dizziness, lightheadedness, near syncope, headache(s) or weakness Endo Endo: Negative for fatigue Cardiology Exam Const Appearance: cooperative, healthy appearing, no acute distress, well developed and well groomed Nutritional Appearance: average body habitus and well nourished Orientation: alert, awake and oriented x3 Head Head: normal to inspection, normocephalic and atraumatic Ears: hearing grossly normal bilaterally and external ears normal Nose: external nose normal, nares normal, nasal mucous membranes and turbinates normal, sept (more content not included)... Normal [facility] 06-11-2024 [facility] Office Visit (UROLBE ) MESSI VILLA ([id number]) 1945 M Date Time Provider Department 06/11/24 11:45 AM ANNETTA KRAUSE During your visit today, we recorded the following information about you: Pulse Blood pressure 55/minute 162/73 Annetta Krause MD 07/26/2024 8:40 PM Signed PHYSICIAN'S NOTE: CYSTOSCOPY PROCEDURE Epic notes reviewed: yes Interval history: foreign body in bladder, urethral stricture, bph Informed consent obtained Operation: Cystoscopy Anatomic Site: Bladder, Laterality: N/A Urethra, Laterality: Not applicable Prostate, Laterality: N/A Approach: endoscopic Device: None Qualifier: None TECHNIQUE: The procedure was fully explained to the patient, risks were reviewed. The patient was placed in the supine position. The genitalia were prepped with betadine, and the urethra was anesthetized with viscous 2% lidocaine. The flexible cystoscope was introduced into the urethra and advanced under direct vision with findings as outlined below. At the conclusion of the procedure, the cystoscope was withdrawn. Anesthetics given: Administered by nurse - see Pre-Procedure Nurse's Notes. Operative Findings Urethra: distal urethral stricture able to be negotiated with scope Prostate: s/p urolift Bladder: no stones, no tumors, no lesions, capsular tabs without stone in bladder, trabeculated Radiologic Studies Urogram: N/A Complications: None INTERNATIONAL PROSTATE SYMPTOM SCORE (I-PSS) 1)INCOMPLETE EMPTYING Over the past month, how often have you had a sensation of not emptying your bladder completely after you finished urinating? SCORE: 3- About half the time 2)FREQUENCY Over the past month, how often have you had to urinate again less than two hours after you finished urinating? SCORE: 4- More than half the time 3)INTERMITTENCY Over the past month, how often have you found you stopped and started again several times when you urinated? SCORE: 3- About half the time 4)URGENCY Over the past month, how often have you found it difficult to postpone urination? SCORE: 2- less than half the time 5)WEAK STREAM Over the past month, how often have you had a weak stream? SCORE: 3- About half the time 6)STRAINING Over the past month, how often have you had to push or strain to begin urination SCORE: 0- Not at all 7)NOCTURIA Over the past month, how many times did you most typically get up to urinate from the time you went to bed at night until the time you get up in the morning? SCORE:2 TOTAL I-PSS SCORE: 17 QUALITY OF LIFE DUE TO URINARY SYMPTOMS If you were to spend the rest of yur life with your urinary condition just the way it is now, how would you feel about that? 3- Mixed- equally satisfied and dissatisfied Recommendations: Discussed findings with patient Post Procedure Evaluation Condition Post Procedure: satisfactory Post Procedure Medications: keflex reassurance given restart urethral self dilations pt to f/u in 2 years for cysto Discussed sperm granuloma of right epididymis. Not current ly tender today reassurance NSAIDS if it becomes tender I spent a total of 30 minutes on the date of the service which included preparing to see the patient, [id number] patient care, completing clinical documentation, performing a medically appropriate examination, counseling and educating the patient/family/caregiv er, ordering medications, tests, or procedures, independently interpreting results (not separately reported), communicating results to the patient/family/caregiv er and care coordination (not separately reported). MD Annita Spencer Erica, OCCA 06/11/2024 12:10 PM Signed PRE CYSTO PROCEDURE ID Verified by: FANNIE Jacobs Procedure Indication:Cystoscopy Latex Allergy: No Betadine Allergy: No Lidocaine allergy: No Allergies reviewed and updated. Pre-Procedure Vital Signs: Blood pressure 162/73, pulse (!) 55. Heart valve replacement:No Joint replacement: No Pre-Procedure Antibiotics: Cephalexin 500mg given now @ 12:09 pm , by Radha Riggs RN verified by Sonia Trevino LPN Patient Prep: Betadine Scrub to perineum and placement of Sterile Drape. Anesthetic Given: 10 cc 2% Lidocaine jelly FANNIE Lazo Rn, Erica, OCCA 06/11/2024 3:28 PM Signed NURSE POST PROCEDURE ASSESSMENT Level of Consciousness: Alert and Oriented Transferred: via Ambulation Post Procedure Vital Signs: Not indicated Specimens obtained: None Post Procedure: Cystoscopy Discharge Notes: Patient returns to pre-procedure mental status. Patient alert and oriented on discharge. Discharge Pain level: 0 on a scale of 0-10. THE FOLLOWING WAS EVALUATED Motivation To Learn: Interested Family/Significant Other Support: High : Family not present. Cognitive Ability: Alert and oriented (more content not included)... Normal [facility] No Panel InformationOrdered By: Nyla Sapp on 06-11-2024 [facility] UA DIP, URINE (POC)on 2023 BILIRUBIN UA (POCT) Negative Negative [facility] CLARITY UA (POCT) Clear [facility] COLOR UA (POCT) Yellow [facility] GLUCOSE UA (POCT) Negative Negative mg/dL [facility] Hemoglobin Ql (U) Negative Negative [facility] Interpretation and review of laboratory results Abnormal [facility] KETONE UA (POCT) Negative Negative mg/dL [facility] LEUKOCYTES UA (POCT) Trace Abnormal Negative [facility] NITRITE UA (POCT) Negative Negative [facility] PH UA (POCT) 6.5 4.5 - 8.0 [facility] Protein Ql (U) Negative Negative mg/dL [facility] SPECIFIC GRAVITY UA (POCT) 1.015 1.005 - 1.030 [facility] UROBILINOGEN UA (POCT) 0.2 Rona l E.U./dL [facility] Location:[facility] [place], [id number] [place] [address], [place], [place], [id number] [place] [address] POINT OF CARE URINE SEDIMENT B/OOrdered By : Nyla Sapp on 06-11-2024 BACTERIA, UR 0 Negative [facility] Casts LM.HPF (Urine sed) [#/Area] 0 /[HPF] Negative [facility] Leukocyte morphology finding Nom (Bld) [facility] Nucleated RBC Manual cnt (Unsp spec) [#] 0 [facility] Urine sediment comments LM Jorge (Urine sed) [facility] URINE SEDIMENT B/Oon 024 Microscopic performe d by CLARA Pratt , scribed by Nyla Sapp LPN [facility] CBC W/Diff, Automatedon 04-29 Absolute Lymph 1.23 X10 3/uL Normal 0.83-4.51 [facility] Comment on above: Order Comment: Order Date: 05/13/24 Order Info: 0184-1 - CBCD Performed By: #### L 100.0100 #### [facility] [address] [place], [place], [id number] Absolute Neut 2.9 X10 3/uL Normal 2.0-7.7 [facility] Comment on above: Order Comment: Order Date: 05/13/24 Order Info: 0184- - CBCD Performed By: #### L 100.0100 #### [facility] [address] [place], [place], [id number] Basophils/100 WBC (Bld) 0.8 % Normal 0-1 [facility] Comment on above: Order Comment: Order Date: 05/13/24 Order Info: 0184-1 - CBCD Performed By: #### L 100.0100 #### [facility] [address] [place], [address] Eosinophils/100 WBC (Bld) 4.8 % Normal 0-5 [facility] Comment on above: Order Comment: Order Date: 05/13/24 Order Info: 0184-1 - CBCD Performed By: #### L 100.0100 #### [facility] [address] [place], [address] Erythrocyte distribution width (RBC) [Ratio] 12.9 % Normal 11.6-14.6 [facility] Comment on above: Order Comment: Order Date: 05/13/24 Order Info: 0184-1 - CBCD Performed By: #### L 100.0100 #### [facility] [address] [place], [address] Hematocrit (Bld) [Volume fraction] 42.1 % Normal 40-54 [facility] Comment on above: Order Comment: Order Date: 05/13/24 Order Info: 0184-1 - CBCD Performed By: #### L 100.0100 #### [facility] [address] [place], [address] Hemoglobin (Bld) [Mass/Vol] 14.2 g/dL Normal 13.0-16.5 [facility] Comment on above: Order Comment: Order Date: 05/13/24 Order Info: 0184-1 - CBCD Performed By: #### L 100.0100 #### [facility] [address] [place], [address] IG% 0.200 Normal 0.0-0.9 [facility] Comment on above: Order Comment: Order Date: 05/13/24 Order Info: 0184-1 - CBCD Result Comment: IG% - Immature Granulocytes (promyelocytes, myelocytes and metamyelocytes) > 1% indicates that a LEFT SHIFT is Present. Performed By: #### L 100.0100 #### [facility] [address] [place], [address] Lymphocytes/100 WBC (Bld) 24.4 % Normal 19-41 [facility] Comment on above: Order Comment: Order Date: 05/13/24 Order Info: 4- - CBCD Performed By: #### L 100.0100 #### [facility] [address] [place], [address] MCH (RBC) [Entitic mass] 32.1 pg High 27.0-32.0 [facility] Comment on above: Order Comment: Order Date: 05/13/24 Order Info: 183- - CBCD Performed By: #### L 100.0100 #### [facility] [address] [place], [address] MCHC (RBC) [Mass/Vol] 33.7 g/dL Normal 32-36 [facility] Comment on above: Order Comment: Order Date: 05/13/24 Order Info: 183- - CBCD Performed By: #### L 100.0100 #### [facility] [address] [place], [address] MCV (RBC) [Entitic vol] 95.0 fL High 80-94 [facility] Comment on above: Order Comment: Order Date: 05/13/24 Order Info: 183- - CBCD Performed By: #### L 100.0100 #### [facility] [address] [place], [address] Monocytes/100 WBC (Bld) 11.9 % High 0-10 [facility] Comment on above: Order Comment: Order Date: 05/13/24 Order Info: 018- - CBCD Performed By: #### L 100.0100 #### [facility] [address] [place], [address] Neutrophils/100 WBC (Bld) 57.9 % Normal 47-70 [facility] Comment on above: Order Comment: Order Date: 05/13/24 Order Info: 018-1 - CBCD Performed By: #### L 100.0100 #### [facility] [address] [place], [address] Nucleated RBC (Bld) [#/Vol] 0 10*3/uL Normal 0-5 [facility] Comment on above: Order Comment: Order Date: 05/13/24 Order Info: 018-1 - CBCD Performed By: #### L 100.0100 #### [facility] [address] [place], [address] Platelet mean volume (Bld) [Entitic vol] 10.5 fL Normal 6.2-12.0 [facility] Comment on above: Order Comment: Order Date: 05/13/24 Order Info: 018- - CBCD Performed By: #### L 100.0100 #### [facility] [address] [place], [address] Platelets (Bld) [#/Vol] 234 10*3/uL Normal 150-450 [facility] Comment on above: Order Comment: Order Date: 05/13/24 Order Info: 018-1 - CBCD Performed By: #### L 100.0100 #### [facility] [address] [place], [address] RBC (Bld) [#/Vol] 4.43 10*6/uL Low 4.6-6.2 [facility] Comment on above: Order Comment: Order Date: 05/13/24 Order Info: 0184-1 - CBCD Performed By: #### L 100.0100 #### [facility] [address] [place], [address] RDW SD 45.1 fl High 35.1-43.9 [facility] Comment on above: Order Comment: Order Date: 05/13/24 Order Info: 0184-1 - CBCD Performed By: #### L 100.0100 #### [facility] [address] [place], [address] WBC (Bld) [#/Vol] 5.0 10*3/uL Normal 4.4-11.0 [facility] Comment on above: Order Comment: Order Date: 05/13/24 Order Info: 0184-1 - CBCD Performed By: #### L 100.0100 #### [facility] [address] [place], [address] Comprehensive Metabolic Prof ilon 05-14-2024 Albumin [Mass/Vol] 3.6 g/dL Normal 3.2-5.0 [facility] Comment on above: Order Comment: Order Date: 05/13/24Order Info: 0786-1 - CMP Performed By: #### L 500.4050 ####[facility] [address] [place], [address] Albumin/Globulin [Mass ratio] 0.9 {ratio} Normal 0.9-2.4 [facility] Comment on above: Order Comment: Order Date: 05/13/24Order Info: 0786-1 - CMP Performed By: #### L 500.4050 ####[facility] [address] [place], [address] ALK P 101 U/L Normal 45-117 [facility] Comment on above: Order Comment: Order Date: 05/13/24Order Info: 0786-1 - CMP Performed By: #### L 500.4050 ####[facility] [address] [place], [address] ALT [Catalytic activity/Vol] 23 U/L Normal 16-61 [facility] Comment on above: Order Comment: Order Date: 05/13/24Order Info: 0786-1 - CMP Performed By: #### L 500.4050 ####[facility] [address] [place], [address] AST [Catalytic activity/Vol] 23 U/L Normal 15-37 [facility] Comment on above: Order Comment: Order Date: 05/13/24Order Info: 0786-1 - CMP Performed By: #### L 500.4050 ####[facility] [address] [place], [address] Bilirubin [Mass/Vol] 0.60 mg/dL Normal 0.20-1.[address] [facility] Comment on above: Order Comment: Order Date: 05/13/24Order Info: 0786-1 - CMP Result Comment: For patients on eltrombopag therapy, use of Dimension [place] TBIL is not recommended. Performed By: #### L 500.4050 ####[facility] [address] [place], [address] BUN/CRE 20.3 RATIO High 10-20 [facility] Comment on above: Order Comment: Order Date: 05/13/24Order Info: 0786-1 - CMP Performed By: #### L 500.4050 ####[facility] [address] [place], [address] CA,Total 9.1 mg/dL Normal 8.5-10.1 [facility] Comment on above: Order Comment: Order Date: 05/13/24Order Info: 0786-1 - CMP Performed By: #### L 500.4050 ####[facility] [address] [place], [address] Chloride [Moles/Vol] 103 mmol/L Normal 98-[address] [facility] Comment on above: Order Comment: Order Date: 05/13/24Order Info: 0786-1 - CMP Performed By: #### L 500.4050 ####[facility] [address] [place], [address] CO2 [Moles/Vol] 32.0 mmol/L Normal 21.0-32.0 [facility] Comment on above: Order Comment: Order Date: 05/13/24Order Info: 0786-1 - CMP Performed By: #### L 500.4050 ####[facility] [address] [place], [address] Creatinine [Mass/Vol] 1.23 mg/dL Normal 0.70-1.30 [facility] Comment on above: Order Comment: Order Date: 05/13/24Order Info: 0786-1 - CMP Result Comment: The validity of the calculated GFR GFRAA in patients over 70 years has not been determined. Clinical correlation is essential. Performed By: #### L 500.4050 ####[facility] [address] [place], [address] EST GFR - AA 73 mL/min Normal >60 [facility] Comment on above: Order Comment: Order Date: 05/13/24Order Info: 0786-1 - CMP Result Comment: Afri can Thai GFR Calc Performed By: #### L 500.4050 ####[facility] [address] [place], [address] GAP 5 Normal 5-15 [facility] Comment on above: Order Comment: Order Date: 05/13/24Order Info: 0786- - CMP Performed By: #### L 500.4050 ####[facility] [address] [place], [address] GFR/1.73 sq M.predicted among non-blacks MDRD (S/P/Bld) [Vol rate/Area] 60 mL/min/{1.73_m2} Normal >60 [facility] Comment on above: Order Comment: Order Date: 05/13/24Order Info: 0786-1 - CMP Result Comment: Non- GFR Calc Performed By: #### L 500.4050 ####[facility] [address] [place], [address] Globulin (S) [Mass/Vol] 3.8 g/dL Normal 2.2-4.2 [facility] Comment on above: Order Comment: Order Date: 05/13/24Order Info: 0786-1 - CMP Performed By: #### L 500.4050 ####[facility] [address] [place], [address] Glucose [Mass/Vol] 103 mg/dL Normal 74-106 [facility] Comment on above: Order Comment: Order Date: 05/13/24Order Info: 0786-1 - CMP Result Comment: Fast ing Glucose result from 100 to 125 mg/dL suggests IMPAIRED HOMEOSTASIS per A.D.A. criteria. Performed By: #### L 500.4050 ####[facility] [address] [place], [address] Potassium [Moles/Vol] 3.4 mmol/L Low 3.5-5.1 [facility] Comment on above: Order Comment: Order Date: 05/13/24Order Info: 0786-1 - CMP Performed By: #### L 500.4050 ####[facility] [address] [place], [address] Sodium [Moles/Vol] 140 mmol/L Normal 136-145 [facility] Comment on above: Order Comment: Order Date: 05/13/24Order Info: 0786-1 - CMP Performed By: #### L 500.4050 ####[facility] [address] [place], [address] T PROT 7.4 g/dL Normal 6.4-8.2 [facility] Comment on above: Order Comment: Order Date: 05/13/24Order Info: 0786-1 - CMP Performed By: #### L 500.4050 ####[facility] [address] [place], [address] Urea nitrogen [Mass/Vol] 25 mg/dL High 7-18 [facility] Comment on above: Order Comment: Order Date: 05/13/24Order Info: 0786-1 - CMP Performed By: #### L 500.4050 ####[facility] [address] [place], [address] Hemoglobin A1con 05-14-2024 HbA1c (Bld) [Mass fraction] 5.8 % High 3.8-5.6 [facility] Comment on above: Order Comment: Order Date: 05/13/24Order Info: 4548-4 - A1C Result Comment: Norm al < 5.7 % Prediabetic 5.7 - 6.4 % Diabetic >or= 6.5 % Please note range changes. Performed By: #### L 501.9985 ####[facility] [address] [place], [address] CBC W/Diff, Automatedon 12-29 Absolute Lymph 1.51 X10 3/uL Normal 0.83-4.51 [facility] Comment on above: Order Comment: Order Date: 05/17/23 Order Info: 0184-1 - CBCD Performed By: #### L 506.1000, L500.4050, L506.0400, L500.4100, L501.9520, L501.9985, L100.0100 #### [facility] [address] [place], [address] Absolute Neut 2.7 X10 3/uL Normal 2.0-7.7 [facility] Comment on above: Order Comment: Order Date: 05/17/23 Order Info: 0184-1 - CBCD Performed By: #### L 506.1000, L500.4050, L506.0400, L500.4100, L501.9520, L501.9985, L100.0100 #### [facility] [address] [place], [address] Basophils/100 WBC (Bld) 0.6 % Normal 0-1 [facility] Comment on above: Order Comment: Order Date: 05/17/23 Order Info: 0184-1 - CBCD Performed By: #### L 506.1000, L500.4050, L506.0400, L500.4100, L501.9520, L501.9985, L100.0100 #### [facility] [address] [place], [address] Eosinophils/100 WBC (Bld) 3.6 % Normal 0-5 [facility] Comment on above: Order Comment: Order Date: 05/17/23 Order Info: 0184-1 - CBCD Performed By: #### L 506.1000, L500.4050, L506.0400, L500.4100, L501.9520, L501.9985, L100.0100 #### [facility] [address] [place], [address] Erythrocyte distribution width (RBC) [Ratio] 12.7 % Normal 11.6-14.6 [facility] Comment on above: Order Comment: Order Date: 05/17/23 Order Info: 0184-1 - CBCD Performed By: #### L 506.1000, L500.4050, L506.0400, L500.4100, L501.9520, L501.9985, L100.0100 #### [facility] [address] [facility] [place], [address] Hematocrit (Bld) [Volume fraction] 42.8 % Normal 40-54 [facility] Comment on above: Order Comment: Order Date: 05/17/23 Order Info: 0184-1 - CBCD Performed By: #### L 506.1000, L500.4050, L506.0400, L500.4100, L501.9520, L501.9985, L100.0100 #### [facility] [address] [facility], [address] Hemoglobin (Bld) [Mass/Vol] 14.7 g/dL Normal 13.0-16.5 [facility] Comment on above: Order Comment: Order Date: 05/17/23 Order Info: 0184-1 - CBCD Performed By: #### L 506.1000, L500.4050, L506.0400, L500.4100, L501.9520, L501.9985, L100.0100 #### [facility] [address] [place], [address] IG% 0.200 Normal 0.0-0.9 [facility] Comment on above: Order Comment: Order Date: 05/17/23 Order Info: 0184- - CBCD Result Comment: IG% - Immature Granulocytes (promyelocytes, myelocytes and metamyelocytes) > 1% indicates that a LEFT SHIFT is Present. Performed By: #### L 506.1000, L500.4050, L506.0400, L500.4100, L501.9520, L501.9985, L100.0100 #### [facility] [address] [place], [address] Lymphocytes/100 WBC (Bld) 30.3 % Normal 19-41 [facility] Comment on above: Order Comment: Order Date: 05/17/23 Order Info: 0184-1 - CBCD Performed By: #### L 506.1000, L500.4050, L506.0400, L500.4100, L501.9520, L501.9985, L100.0100 #### [facility] [address] [place], [address] MCH (RBC) [Entitic mass] 32.6 pg High 27.0-32.0 [facility] Comment on above: Order Comment: Order Date: 05/17/23 Order Info: 0184-1 - CBCD Performed By: #### L 506.1000, L500.4050, L506.0400, L500.4100, L501.9520, L501.9985, L100.0100 #### [facility] [address] [place], [address] MCHC (RBC) [Mass/Vol] 34.3 g/dL Normal 32-36 [facility] Comment on above: Order Comment: Order Date: 05/17/23 Order Info: 0184-1 - CBCD Performed By: #### L 506.1000, L500.4050, L506.0400, L500.4100, L501.9520, L501.9985, L100.0100 #### [facility] [address] [place], [address] MCV (RBC) [Entitic vol] 94.9 fL High 80-94 [facility] Comment on above: Order Comment: Order Date: 05/17/23 Order Info: 0184-1 - CBCD Performed By: #### L 506.1000, L500.4050, L506.0400, L500.4100, L501.9520, L501.9985, L100.0100 #### [facility] [address] [place], [address] Monocytes/100 WBC (Bld) 10.4 % High 0-10 [facility] Comment on above: Order Comment: Order Date: 05/17/23 Order Info: 0184-1 - CBCD Performed By: #### L 506.1000, L500.4050, L506.0400, L500.4100, L501.9520, L501.9985, L100.0100 #### [facility] [address] [place], [address] Neutrophils/100 WBC (Bld) 54.9 % Normal 47-70 [facility] Comment on above: Order Comment: Order Date: 05/17/23 Order Info: 0184-1 - CBCD Performed By: #### L 506.1000, L500.4050, L506.0400, L500.4100, L501.9520, L501.9985, L100.0100 #### [facility] [address] [place], [address] Nucleated RBC (Bld) [#/Vol] 0 10*3/uL Normal 0-5 [facility] Comment on above: Order Comment: Order Date: 05/17/23 Order Info: 0184-1 - CBCD Performed By: #### L 506.1000, L500.4050, L506.0400, L500.4100, L501.9520, L501.9985, L100.0100 #### [facility] [address] [place], [address] Platelet mean volume (Bld) [Entitic vol] 10.6 fL Normal 6.2-12.0 [facility] Comment on above: Order Comment: Order Date: 05/17/23 Order Info: 0184-1 - CBCD Performed By: #### L 506.1000, L500.4050, L506.0400, L500.4100, L501.9520, L501.9985, L100.0100 #### [facility] [address] [place], [place], [address] (166) Platelets (Bld) [#/Vol] 239 10*3/uL Normal 150-450 [facility] Comment on above: Order Comment: Order Date: 05/17/23 Order Info: 0184-1 - CBCD Performed By: #### L 506.1000, L500.4050, L506.0400, L500.4100, L501.9520, L501.9985, L100.0100 #### [facility] [address] [place], [address] RBC (Bld) [#/Vol] 4.51 10*6/uL Low 4.6-6.2 [facility] Comment on above: Order Comment: Order Date: 05/17/23 Order Info: 0184-1 - CBCD Performed By: #### L 506.1000, L500.4050, L506.0400, L500.4100, L501.9520, L501.9985, L100.0100 #### [facility] [address] [place], [address] RDW SD 44.1 fl High 35.1-43.9 [facility] Comment on above: Order Comment: Order Date: 05/17/23 Order Info: 0184- - CBCD Performed By: #### L 506.1000, L500.4050, L506.0400, L500.4100, L501.9520, L501.9985, L100.0100 #### [facility] [address] [place], [place], [address] WBC (Bld) [#/Vol] 5.0 10*3/uL Normal 4.4-11.0 [facility] Comment on above: Order Comment: Order Date: 05/17/23 Order Info: 01810-28 - CBCD Performed By: #### L 506.1000, L500.4050, L506.0400, L500.4100, L501.9520, L501.9985, L100.0100 #### [facility] [address] [place], [address] Comprehensive Metabolic Prof [facility] 01-21-2024 Albumin [Mass/Vol] 3.5 g/dL Normal 3.2-5.0 [facility] Comment on above: Order Comment: Order Date: 05/17/23 Order Info: 0786-1 - CMP Order Info: [id number] - LIPID Order Info: 3015-3 - TSH Order Info: 3023-7 - T4F Performed By: #### L 506.1000, L500.4050, L506.0400, L500.4100, L501.9520, L501.9985, L100.0100 #### [facility] [address] [place], [place], [address] Albumin/Globulin [Mass ratio] 0.9 {ratio} Normal 0.9-2.4 [facility] Comment on above: Order Comment: Order Date: 05/17/23 Order Info: 0786-1 - CMP Order Info: [id number] - LIPID Order Info: 3016-3 - TSH Order Info: 3024-7 - T4F Performed By: #### L 506.1000, L500.4050, L506.0400, L500.4100, L501.9520, L501.9985, L100.0100 #### [facility] [address] [place], [address] ALK P 92 U/L Normal 45-117 [facility] Comment on above: Order Comment: Order Date: 05/17/23 Order Info: 0786-1 - CMP Order Info: 36637-2 - LIPID Order Info: 3015-3 - TSH Order Info: 3023-7 - T4F Performed By: #### L 506.1000, L500.4050, L506.0400, L500.4100, L501.9520, L501.9985, L100.0100 #### [facility] [address] [place], [place], [id number] ALT [Catalytic activity/Vol] 24 U/L Normal 16-61 [facility] Comment on above: Order Comment: Order Date: 05/17/23 Order Info: 86-1 - CMP Order Info: [id number] - LIPID Order Info: 3 - TSH Order Info: 3024-7 - T4F Performed By: #### L 506.1000, L500.4050, L506.0400, L500.4100, L501.9520, L501.9985, L100.0100 #### [facility] [address] [place], [address] AST [Catalytic activity/Vol] 24 U/L Normal 15-37 [facility] Comment on above: Order Comment: Order Date: 05/17/23 Order Info: 0786-1 - CMP Order Info: 91651-4 - LIPID Order Info: 3016-3 - TSH Order Info: 3024-7 - T4F Performed By: #### L 506.1000, L500.4050, L506.0400, L500.4100, L501.9520, L501.9985, L100.0100 #### [facility] [address] [place], [address] Bilirubin [Mass/Vol] 0.50 mg/dL Normal 0.20-1.[address] [facility] Comment on above: Order Comment: Order Date: 05/17/23 Order Info: 0786-1 - CMP Order Info: [id number] - LIPID Order Info: 3016-3 - TSH Order Info: 3024-7 - T4F Result Comment: For patients on eltrombopag therapy, use of Dimension [place] TBIL is not recommended. Performed By: #### L 506.1000, L500.4050, L506.0400, L500.4100, L501.9520, L501.9985, L100.0100 #### [facility] [address] [place], [address] BUN/CRE 22.8 RATIO High 10-20 [facility] Comment on above: Order Comment: Order Date: 05/17/23 Order Info: 785- - CMP Order Info: [id number] - LIPID Order Info: 3016-3 - TSH Order Info: 3024-7 - T4F Performed By: #### L 506.1000, L500.4050, L506.0400, L500.4100, L501.9520, L501.9985, L100.0100 #### [facility] [address] [place], [address] CA,Total 8.8 mg/dL Normal 8.5-10.1 [facility] Comment on above: Order Comment: Order Date: 05/17/23 Order Info: 07-1 - CMP Order Info: 12926-6 - LIPID Order Info: 3016-3 - TSH Order Info: 3024-7 - T4F Performed By: #### L 506.1000, L500.4050, L506.0400, L500.4100, L501.9520, L501.9985, L100.0100 #### [facility] [address] [place], [address] Chloride [Moles/Vol] 105 mmol/L Normal 98-[address] [facility] Comment on above: Order Comment: Order Date: 05/17/23 Order Info: 07- - CMP Order Info: - LIPID Order Info: [id number] - TSH Order Info: 3024-01 - T4F Performed By: #### L 506.1000, L500.4050, L506.0400, L500.4100, L501.9520, L501.9985, L100.0100 #### [facility] [address] [place], [address] CO2 [Moles/Vol] 28.0 mmol/L Normal 21.0-32.0 [facility] Comment on above: Order Comment: Order Date: 05/17/23 Order Info: 785-07 - CMP Order Info: - LIPID Order Info: 3015-09 - TSH Order Info: 3024-01 - T4F Performed By: #### L 506.1000, L500.4050, L506.0400, L500.4100, L501.9520, L501.9985, L100.0100 #### [facility] [address] [place], [address] Creatinine [Mass/Vol] 1.23 mg/dL Normal 0.70-1.30 [facility] Comment on above: Order Comment: Order Date: 05/17/23 Order Info: 785-07 - CMP Order Info: - LIPID Order Info: 3015-09 - TSH Order Info: 7 - T4F Result Comment: The validity of the calculated GFR GFRAA in patients over 70 years has not been determined. Clinical correlation is essential. Performed By: #### L 506.1000, L500.4050, L506.0400, L500.4100, L501.9520, L501.9985, L100.0100 #### [facility] [address] [place], [address] EST GFR - AA 73 mL/min Normal >60 [facility] Comment on above: Order Comment: Order Date: 05/17/23 Order Info: 785-07 - CMP Order Info: - LIPID Order Info: 3015-09 - TSH Order Info: 3024-01 - T4F Result Comment: Afri can Thai GFR Calc Performed By: #### L 506.1000, L500.4050, L506.0400, L500.4100, L501.9520, L501.9985, L100.0100 #### [facility] [address] [place], [address] GAP 6 Normal 5-15 [facility] Comment on above: Order Comment: Order Date: 05/17/23 Order Info: 785-07 - CMP Order Info: - LIPID Order Info: [id number] - TSH Order Info: 3024-01 - T4F Performed By: #### L 506.1000, L500.4050, L506.0400, L500.4100, L501.9520, L501.9985, L100.0100 #### [facility] [address] [place], [address] GFR/1.73 sq M.predicted among non-blacks MDRD (S/P/Bld) [Vol rate/Area] 60 mL/min/{1.73_m2} Normal >60 [facility] Comment on above: Order Comment: Order Date: 05/17/23 Order Info: 785-07 - CMP Order Info: - LIPID Order Info: 3015-09 - TSH Order Info: 3024-01 - T4F Result Comment: Non- GFR Calc Performed By: #### L 506.1000, L500.4050, L506.0400, L500.4100, L501.9520, L501.9985, L100.0100 #### [facility] [address] [place], [address] Globulin (S) [Mass/Vol] 3.8 g/dL Normal 2.2-4.2 [facility] Comment on above: Order Comment: Order Date: 05/17/23 Order Info: 785- - CMP Order Info: [id number] - LIPID Order Info: 3015-09 - TSH Order Info: 7 - T4F Performed By: #### L 506.1000, L500.4050, L506.0400, L500.4100, L501.9520, L501.9985, L100.0100 #### [facility] [address] [place], [address] Glucose [Mass/Vol] 90 mg/dL Normal 74-106 [facility] Comment on above: Order Comment: Order Date: 05/17/23 Order Info: 785-1 - CMP Order Info: - LIPID Order Info: [id number] - TSH Order Info: 7 - T4F Performed By: #### L 506.1000, L500.4050, L506.0400, L500.4100, L501.9520, L501.9985, L100.0100 #### [facility] [address] [place], [address] Potassium [Moles/Vol] 3.6 mmol/L Normal 3.5-5.1 [facility] Comment on above: Order Comment: Order Date: 05/17/23 Order Info: 785-07 - CMP Order Info: [id number] - LIPID Order Info: 3015-09 - TSH Order Info: 3024-7 - T4F Performed By: #### L 506.1000, L500.4050, L506.0400, L500.4100, L501.9520, L501.9985, L100.0100 #### [facility] [address] [place], [address] Sodium [Moles/Vol] 139 mmol/L Normal 136-145 [facility] Comment on above: Order Comment: Order Date: 05/17/23 Order Info: 86-1 - CMP Order Info: 82020-1 - LIPID Order Info: 3015-09 - TSH Order Info: 3024-7 - T4F Performed By: #### L 506.1000, L500.4050, L506.0400, L500.4100, L501.9520, L501.9985, L100.0100 #### [facility] [address] [place], [address] T PROT 7.3 g/dL Normal 6.4-8.2 [facility] Comment on above: Order Comment: Order Date: 05/17/23 Order Info: 0786-1 - CMP Order Info: [id number] - LIPID Order Info: 3016-3 - TSH Order Info: 302-7 - T4F Performed By: #### L 506.1000, L500.4050, L506.0400, L500.4100, L501.9520, L501.9985, L100.0100 #### [facility] [address] [place], [place], [address] Urea nitrogen [Mass/Vol] 28 mg/dL High - [facility] Comment on above: Order Comment: Order Date: 05/17/23 Order Info: 0786-1 - CMP Order Info: [id number] - LIPID Order Info: 63 - TSH Order Info: 30247 - T4F Performed By: #### L 506.1000, L500.4050, L506.0400, L500.4100, L501.9520, L501.9985, L100.0100 #### [facility] [address] [place], [address] Hemoglobin A1con 01-21-2024 HbA1c (Bld) [Mass fraction] 5.7 % High 3.8-5.6 [facility] Comment on above: Order Comment: Order Date: 05/17/23Order Info: 4548-4 - A1C Result Comment: Norm al < 5.7 % Prediabetic 5.7 - 6.4 % Diabetic >or= 6.5 % Please note range changes. Performed By: #### L 506.1000, L500.4050, L506.0400, L500.4100, L501.9520, L501.9985, L100.0100 ####[facility] [address] [place], [address] Lipid Profileon 01-21-2024 Cholesterol [Mass/Vol] 128 mg/dL Normal 200 [facility] Comment on above: Order Comment: Order Date: 05/17/23 Order Info: 785- - CMP Order Info: - LIPID Order Info: 3015-09 - TSH Order Info: 3024-01 - T4F Result Comment: <200 mg/dL Desirable 200-240 mg/dL Borderline >240 mg/dL High Risk Performed By: #### L 506.1000, L500.4050, L506.0400, L500.4100, L501.9520, L501.9985, L100.0100 #### [facility] [address] [place], [address] Cholesterol in HDL [Mass/Vol] 54 mg/dL Normal [facility] Comment on above: Order Comment: Order Date: 05/17/23 Order Info: 785-07 - CMP Order Info: - LIPID Order Info: 3015-09 - TSH Order Info: 3024-01 - T4F Result Comment: The drugs N-Acetylcysteine and Metamizole may falsely depress this assay. Reference Range HDL <40 mg/dL Low HDL Cholesterol HDL >or= 60 mg/dL High HDL Cholesterol Performed By: #### L 506.1000, L500.4050, L506.0400, L500.4100, L501.9520, L501.9985, L100.0100 #### [facility] [address] [place], [address] Cholesterol in LDL [Mass/Vol] 61 mg/dL Normal 0-130 [facility] Comment on above: Order Comment: Order Date: 05/17/23 Order Info: 07861 - CMP Order Info: - LIPID Order Info: [id number] - TSH Order Info: 3024-01 - T4F Performed By: #### L 506.1000, L500.4050, L506.0400, L500.4100, L501.9520, L501.9985, L100.0100 #### [facility] [address] [place], [address] Cholesterol in VLDL [Mass/Vol] 13 mg/dL Normal 5-40 [facility] Comment on above: Order Comment: Order Date: 05/17/23 Order Info: 785- - CMP Order Info: - LIPID Order Info: [id number] - TSH Order Info: 3024-01 - T4F Performed By: #### L 506.1000, L500.4050, L506.0400, L500.4100, L501.9520, L501.9985, L100.0100 #### [facility] [address] [place], [address] Triglyceride [Mass/Vol] 65 mg/dL Normal [facility] Comment on above: Order Comment: Order Date: 05/17/23 Order Info: 785-07 - CMP Order Info: - LIPID Order Info: [id number] - TSH Order Info: 3024-01 - T4F Result Comment: The drugs N-Acetylcysteine and Metamizole may falsely depress this assay. Serum Triglycerides Reference Interval Normal <150 mg/dL Borderline high 150 - 199 mg/dL High 200 - 499 mg/dL Very High > or = 500 mg/dL Performed By: #### L 506.1000, L500.4050, L506.0400, L500.4100, L501.9520, L501.9985, L100.0100 #### [facility] [address] [place], [address] T4 Free Directon 01-21-2024 T4 FREE DIRECT 1.15 ng/dL Normal 0.76-1.46 [facility] Comment on above: Order Comment: Order Date: 05/17/23Order Info: 785- - CMPOrder Info: - LIPIDOrder Info: [id number] - TSHOrder Info: 7 - T4F Performed By: #### L 506.1000, L500.4050, L506.0400, L500.4100, L501.9520, L501.9985, L100.0100 ####[facility] [address] [place], [address] Thyroid Stim Hormone (TSH)on 01-21-2024 TSH 2.70 uIU/mL Normal 0.358-3.74 [facility] Comment on above: Order Comment: Order Date: 05/17/23Order Info: [id number] - CMPOrder Info: [id number] - LIPIDOrder Info: [id number] - TSHOrder Info: 3024-7 - T4F Performed By: #### L 506.1000, L500.4050, L506.0400, L500.4100, L501.9520, L501.9985, L100.0100 ####[facility] [address] [place], [id number] Vitamin D,25 Hydroxyon 01-20 Vitamin D 25-OH 44.4 ng/mL Normal [facility] Comment on above: Order Comment: Order Date: 05/17/23 Order Info: [id number] - VITD25 Result Comment: Rose min D 25(OH) Status Range Deficiency <20 ng/mL (50nmol/L) Insufficiency 20 - 30 ng/mL (50 - 75 nmol/L) Sufficiency 30 - 100 ng/mL (75 - 250 nmol/L) Toxicity >100 ng/mL (>250 nmol/L) Performed By: #### L 506.1000, L500.4050, L506.0400, L500.4100, L501.9520, L501.9985, L100.0100 #### [facility] [address] [place], [address] PT D/C Summary (1)on 024 PT D/C Summary (1) [facility] [place] [address] / REHABILITATION SERVICES DISCHARGE SUMMARY MR#: [id number] Acct: [id number] Name: MESSI VILLA Rep #: [id number] : 1945 78 From: Zulema Clinton PT, Cert. MDT Referring Dr.: Dr. Misael Conti MD Status: RE G RCR Insurance: MEDICARE PART A B AAR Discharge Summary D/C summary: It has been my pleasure to treat MESSI VILLA referred by Dr. Misael Conti MD, with the diagnosis of L SHLD ARTHROSCOPIC ROTATOR CUFF REPAIR 08/02/23 for a total of 25 visit(s). Discharge Date: 11/16/23 Please see the following information for a summary of their discharge status. Subjective Subjective: INTERMITTENT RESIDUAL L SHLD SORENESS WITH REACHING AND IN L SDLY. HAPPY WITH OUTCOME AND FEELS READY TO CONTINUE WITH INDEP GYM PROGRAM. Pain L Shoulder: Pain Intensity (Out of 10): 0 Overall Improvement % Improvement: 95 Objective Objective/Function: PATIENT WAS SEEN TODAY FOR RE-ASSESSMENT OF PROGRESS TOWARD THE SET PT GOALS AND THE NEED FOR FURTHER PHYSICAL THERAPY VS READINESS FOR DISCHARGE. UPON EXAM TODAY: ALL GOALS MET. L UE ROM AND STRENGTH WFL. INDEP GYM PROGRAM HAS BEEN PROVIDED. PATIENT WITH NO COMPLAINTS OR CONCERNS. Goals Goal 1:: RESTORE FULL PROM L SHLD FLEX, IR AND ER ROM Goal Progress: Goal Met Goal 2:: RESTORE FULL AAROM L SHLD FLEX AND ER Goal Progress: Goal Met Goal 3:: INCREASE L SHLD ROTATOR CUFF, PERISCAPULAR AND DELTOID STRENGTH TO 4/5 Goal Progress: Goal Met Goal 4:: PATIENT WILL BE INDEP WITH [facility] FOR CONTINUED IMPROVEMENT ONCE FORMAL PHYSICAL THERPAY CONCLUDES. Goal Progress: Goal Met Plan Plan: D/C D/C Information d/c sentence: If there are questions or concerns regarding this patient's physical therapy, please feel free to call me at [phone]. Thank you for the referral of this patient. Sincerely, Zulema Clinton, PT, Cert MDT Balance/Gait/Functiona l tests Balance/Special Test Scores Quick DASH Score: 5.0000 Improvement % Improvement: 95 11/16/23 1052 CC: Dr. Misael Conti MD; Dr. Moiz Elise MD POONAM Signed Normal [facility] Absolute lymphocyte countOrd ered By: Barrie Pike on 10-11-2023 Lymphocytes Auto (Unsp spec) [#/Vol] 1.05 10*3/uL 0.83-4.51 [facility] Automated lymphocyte count a s percentage of total leukocytesOrdered By: Barrie Pike on 10-11-2023 Lymphocytes/100 WBC Auto (Unsp spec) 14.3 % 19-41 [facility] Basic Metabolic Profile (BMP )on 10-11-2023 BUN/CRE 17.8 RATIO Normal 10-20 [facility] Comment on above: Performed By: #### L 500.2500, L100.0100 ####[facility] [address] [place], [address] CA,Total 9.1 mg/dL Normal 8.5-10.1 [facility] Comment on above: Performed By: #### L 500.2500, L100.0100 ####[facility] [address] [place], [address] Chloride [Moles/Vol] 100 mmol/L Normal 98-[address] [facility] Comment on above: Performed By: #### L 500.2500, L100.0100 ####[facility] [address] [place], [address] CO2 [Moles/Vol] 32.0 mmol/L Normal 21.0-32.0 [facility] Comment on above: Performed By: #### L 500.2500, L100.0100 ####[facility] [address] [place], [address] Creatinine [Mass/Vol] 1.18 mg/dL Normal 0.70-1.30 [facility] Comment on above: Result Comment: The validity of the calculated GFR GFRAA in patients over 70 years has not been determined. Clinical correlation is essential. Performed By: #### L 500.2500, L100.0100 ####[facility] [address] [place], [address] ECRCL 51.59 ml/min Normal [facility] Comment on above: Performed By: #### L 500.2500, L100.0100 ####[facility] [address] [place], [address] EST GFR - AA 77 mL/min Normal >60 [facility] Comment on above: Result Comment: Afri can Thai GFR Calc Performed By: #### L 500.2500, L100.0100 ####[facility] [address] [place], [address] GAP 6 Normal 5-15 [facility] Comment on above: Performed By: #### L 500.2500, L100.0100 ####[facility] [address] [place], [address] GFR/1.73 sq M.predicted among non-blacks MDRD (S/P/Bld) [Vol rate/Area] 63 mL/min/{1.73_m2} Normal >60 [facility] Comment on above: Result Comment: Non- GFR Calc Performed By: #### L 500.2500, L100.0100 ####[facility] [address] [place], [address] Glucose [Mass/Vol] 157 mg/dL High 74-106 [facility] Comment on above: Result Comment: Fast ing Glucose result greater than or equal to 126 mg/dL suggests DIABETES MELLITUS per A.D.A. criteria. Performed By: #### L 500.2500, L100.0100 ####[facility] [address] [place], [address] Potassium [Moles/Vol] 3.7 mmol/L Normal 3.5-5.1 [facility] Comment on above: Performed By: #### L 500.2500, L100.0100 ####[facility] [address] [place], [address] Sodium [Moles/Vol] 138 mmol/L Normal 136-145 [facility] Comment on above: Performed By: #### L 500.2500, L100.0100 ####[facility] [address] [place], [address] Urea nitrogen [Mass/Vol] 21 mg/dL High 7-18 [facility] Comment on above: Performed By: #### L 500.2500, L100.0100 ####[facility] [address] [place], [address] Basophil percentageOrdered B y: Barrie Pike on 10-11-2023 Basophils/100 WBC (Bld) 0.3 % 0-1 [facility] Chloride [Moles/Vol] 100 mmol/L 98-[address] [facility] Eosinophils/100 WBC (Bld) 3.5 % 0-5 [facility] Glucose [Mass/Vol] 157 mg/dL 74-106 [facility] Comment on above: Fasting Glucose resu lt greater than or equal to 126 mg/dL suggests DIABETES MELLITUS per A.D.A. criteria. Hemoglobin (Bld) [Mass/Vol] 14.6 g/dL 13.0-16.5 [facility] Monocytes/100 WBC (Bld) 11.1 % 0-10 [facility] Neutrophils (Bld) [#/Vol] 5.2 10*3/uL 2.0-7.7 [facility] Neutrophils/100 WBC (Bld) 70.7 % 47-70 [facility] Potassium [Moles/Vol] 3.7 mmol/L 3.5-5.1 [facility] Sodium [Moles/Vol] 138 mmol/L 136-145 [facility] WBC (Bld) [#/Vol] 7.4 10*3/uL 4.4-11.0 [facility] CBC W/Diff, Automatedon 09-27 Absolute Lymph 1.05 X10 3/uL Normal 0.83-4.51 [facility] Comment on above: Performed By: #### L 500.2500, L100.0100 ####[facility] [address] [place], [address] Absolute Neut 5.2 X10 3/uL Normal 2.0-7.7 [facility] Comment on above: Performed By: #### L 500.2500, L100.0100 ####[facility] [address] [place], [address] Basophils/100 WBC (Bld) 0.3 % Normal 0-1 [facility] Comment on above: Performed By: #### L 500.2500, L100.0100 ####[facility] [address] [place], [address] Eosinophils/100 WBC (Bld) 3.5 % Normal 0-5 [facility] Comment on above: Performed By: #### L 500.2500, L100.0100 ####[facility] [address] [place], [address] Erythrocyte distribution width (RBC) [Ratio] 12.8 % Normal 11.6-14.6 [facility] Comment on above: Performed By: #### L 500.2500, L100.0100 ####[facility] [address] [place], [address] Hematocrit (Bld) [Volume fraction] 43.2 % Normal 40-54 [facility] Comment on above: Performed By: #### L 500.2500, L100.0100 ####[facility] [address] [place], [address] Hemoglobin (Bld) [Mass/Vol] 14.6 g/dL Normal 13.0-16.5 [facility] Comment on above: Performed By: #### L 500.2500, L100.0100 ####[facility] [address] [place], [address] IG% 0.100 Normal 0.0-0.9 [facility] Comment on above: Result Comment: IG% - Immature Granulocytes (promyelocytes, myelocytes and metamyelocytes) > 1% indicates that a LEFT SHIFT is Present. Performed By: #### L 500.2500, L100.0100 ####[facility] [address] [place], [address] Lymphocytes/100 WBC (Bld) 14.3 % Low 19-41 [facility] Comment on above: Performed By: #### L 500.2500, L100.0100 ####[facility] [address] [place], [address] MCH (RBC) [Entitic mass] 32.7 pg High 27.0-32.0 [facility] Comment on above: Performed By: #### L 500.2500, L100.0100 ####[facility] [address] [place], [address] MCHC (RBC) [Mass/Vol] 33.8 g/dL Normal 32-36 [facility] Comment on above: Performed By: #### L 500.2500, L100.0100 ####[facility] [address] [place], [address] MCV (RBC) [Entitic vol] 96.9 fL High 80-94 [facility] Comment on above: Performed By: #### L 500.2500, L100.0100 ####[facility] [address] [place], [address] Monocytes/100 WBC (Bld) 11.1 % High 0-10 [facility] Comment on above: Performed By: #### L 500.2500, L100.0100 ####[facility] [address] [place], [address] Neutrophils/100 WBC (Bld) 70.7 % High 47-70 [facility] Comment on above: Performed By: #### L 500.2500, L100.0100 ####[facility] [address] [place], [address] Nucleated RBC (Bld) [#/Vol] 0 10*3/uL Normal 0-5 [facility] Comment on above: Performed By: #### L 500.2500, L100.0100 ####[facility] [address] [place], [address] Platelet mean volume (Bld) [Entitic vol] 10.4 fL Normal 6.2-12.0 [facility] Comment on above: Performed By: #### L 500.2500, L100.0100 ####[facility] [address] [place], [address] Platelets (Bld) [#/Vol] 204 10*3/uL Normal 150-450 [facility] Comment on above: Performed By: #### L 500.2500, L100.0100 ####[facility] [address] [place], [address] RBC (Bld) [#/Vol] 4.46 10*6/uL Low 4.6-6.2 [facility] Comment on above: Performed By: #### L 500.2500, L100.0100 ####[facility] [address] [place], [address] RDW SD 46.5 fl High 35.1-43.9 [facility] Comment on above: Performed By: #### L 500.2500, L100.0100 ####[facility] [address] [place], [address] WBC (Bld) [#/Vol] 7.4 10*3/uL Normal 4.4-11.0 [facility] Comment on above: Performed By: #### L 500.2500, L100.0100 ####[facility] [address] [place], [address] Determination of erythrocyte mean corpuscular volume (MCV)Ordered By: Barrie Pike on 10-11-2023 MCV (RBC) [Entitic vol] 96.9 fL 80-94 [facility] Emergency Department Summary on 10-11-2023 Emergency Department Summary [facility] Medical Records Department [address] [place] [address] Emergency Department Summary 10/11/23 MR#: [id number] Acct: [id number] Name: MESSI VILLA Rep #: [id number] : 1945 78 From: Barrie Pike DO PCP: Dr. Moiz Elise MD Status:DEP ER Location: ED HPI History of Present Illness Chief Complaint: Sore Throat [facility] Medical History (Updated 10/11/23 @ 14:[address] 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 Home Medications aspirin 81 mg chewable tablet 81 mg PO DAILY@0800 [facility] 11/07/13 [History Last Taken Unknown] cholecalciferol (vitamin D3) 50 mcg (2,000 unit) capsule 100 mcg PO DAILY 02/09/22 [History Last Taken Unknown] levothyroxine 88 mcg tablet 100 mcg PO DAILY 02/22/23 [History Last Taken Unknown] amlodipine 5 mg tablet 5 mg PO DAILY #90 tabs 08/07/23 [Rx Last Taken Unknown] atorvastatin 10 mg tablet 10 mg PO QDAY #90 tabs 08/31/23 [Rx Last Taken Unknown] hydrochlorothiazide 25 mg tablet 25 mg PO DAILY #90 tabs 08/31/23 [Rx Last Taken Unknown] prednisone 20 mg tablet 20 mg PO DAILY #5 tabs 10/11/23 [Rx Last Taken Unknown] Allergy/AdvReac Type Severity Reaction Status Date / Time ramipril Allergy Severe Angioedema Verified 10/11/23 09:21 Family History Father CAD (coronary artery disease) cabg Mother , age 60 Pancreatic cancer Surgical History History of coronary artery stent placement (12/05/13) History of excision of pilonidal cyst History of left heart catheterization (10/2013) History of repair of left rotator cuff History of repair of right rotator cuff History of tonsillectomy Social History Smoking Status: Never smoker alcohol intake: current alcohol intake frequency: holidays/special occasions only Alcohol type: beer and wine substance use type: does not use caffeine: No EXAM Physical Exam Const Vital Signs: 10/11/23 09:21 10/11/23 10:20 10/11/23 11:00 Temperature 98.3 F Temperature Source Temporal Pulse Rate 58 L 57 L 59 L Respiratory Rate 14 18 18 Blood Pressure 158/71 H 154/73 H 131/82 H Blood Pressure Mean 100 100 98 Pulse Ox 94 96 96 Oxygen Delivery Method Room Air Room Air Room Air Oxygen Flow Rate (L/min) 10/11/23 12:00 10/11/23 12:16 10/11/23 13:35 Temperature Temperature Source Pulse Rate 80 61 69 Respiratory Rate 18 18 19 H Blood Pressure 130/80 H 175/77 H 172/84 H Blood Pressure Mean 96 109 113 Pulse Ox 97 99 94 Oxygen Delivery Method Nasal Cannula Room Air Room Air Oxygen Flow Rate (L/min) 3 10/11/23 14:23 Temperature 97.6 F L Temperature Source Pulse Rate 64 Respiratory Rate 22 H Blood Pressure 156/86 H Blood Pressure Mean 109 Pulse Ox 95 Oxygen Delivery Method Oxygen Flow Rate (L/min) MDM MDM MDM Narrative Medical decision making narrative: HISTORY OF PRESENT ILLNESS: 78-year-old male presents with concern for shortness of breath and difficulty swallowing. Notes fullness in his posterior oropharynx. Notes recent bout of bronchitis which he was taking azithromycin for. The patient denies recent surgery in the last 4 weeks or immobilization in the last 3 days, denies previous diagnosis of DVT or PE, hemoptysis, unilateral leg swelling or malignancy with treatment the last 6 months or palliative. No estrogen use noted. REVIEW OF SYSTEMS: Pertinent positives: Sore throat, difficulty swallowing, shortness of breath Pertinent negatives: PHYSICAL EXAM: Nursing triage notes reviewed, Vital signs reviewed Constitutional: please see mdm HENT: MMM, no stridor, no trismus, no pooling secretions, posterior oropharynx clear however it looks a bit edematous, hot potato voice noted Eyes: Pupils equal round and reactive to light, Extraocular muscles intact Neck: No stridor, no JVD, full neck ROM Lungs: Clear to auscultation, No wheezing or rales. No increased work of breathing, no conversational dyspnea, no accessory muscle use, no nasal flaring. No respiratory distress noted Heart: Regular rate and rhythm, No murmurs, No rubs and No gallops, 2+ distal pulses (radial, femoral, posterior tibial) in all extremities Abdomen: Soft, there is no tenderness, rigidity, rebound or guarding, no obvious peritoneal signs, no palpable pulsat (more content not included)... Normal [facility] Erythrocyte distribution wid th ratioOrdered By: Barrie Pike on 10-11-2023 Erythrocyte distribution width (RBC) [Ratio] 12.8 % 11.6-14.6 [facility] Erythrocyte distribution wid th standard deviationOrdered By: Barrie Pike on 10-11-2023 Erythrocyte distribution width (RBC) [Entitic vol] 46.5 fL 35.1-43.9 [facility] Hematocrit Auto (Bld) [Volum e fraction]Ordered By: Barrie Pike on 10-11-2023 Hematocrit (Bld) [Volume fraction] 43.2 % 40-54 [facility] Immature granulocytes/100 WB C Auto (Bld)Ordered By: Barrie Pike on 10-11-2023 Immature granulocytes/100 WBC (Bld) 0.100 % 0.0-0.9 [facility] Comment on above: IG% - Immature Granu locytes (promyelocytes, myelocytes and metamyelocytes) > 1% indicates that a LEFT SHIFT is Present. Laboratory - Chemistry and C hemistry - challengeOrdered By: Barrie Pike on 10-11-2023 CO2 [Moles/Vol] 32.0 mmol/L 21.0-32.0 [facility] Urea nitrogen/Creatinine [Mass ratio] 17.8 mg/mg 10-20 [facility] Laboratory - Hematology and Cell countsOrdered By: Barrie Pike on 10-11-2023 MCH (RBC) [Entitic mass] 32.7 pg 27.0-32.0 [facility] MCHC (RBC) [Mass/Vol] 33.8 g/dL 32-36 [facility] Nucleated RBC/100 WBC (Bld) [Ratio] 0 % 0-5 [facility] Platelet mean volume (Bld) [Entitic vol] 10.4 fL 6.2-12.0 [facility] Platelets (Bld) [#/Vol] 204 10*3/uL 150-450 [facility] M100.677on 10-11-2023 M100.677 Negative Normal [facility] Comment on above: Performed By: #### L 100.0100 #### [facility] [address] [place], [address] No Panel InformationOrdered By: Barrie Pike on 10-11-2023 Estimated Creatinine Clearance Calc 51.59 ml/min [facility] Estimated GFR (MDRD) Amer 77 mL/min >60 [facility] Comment on above: GFR Calc Estimated GFR (MDRD) Non-Af Amer 63 mL/min >60 [facility] Comment on above: Non- GFR Calc RBC Auto (Bld) [#/Vol]Ordere d By: Barrie Pike on 10-11-2023 RBC (Bld) [#/Vol] 4.46 10*6/uL 4.6-6.2 [facility] Serum or plasma calcium dulce urement (mass/volume)Ordered By: Barrie Pike on 10-11-2023 Calcium [Mass/Vol] 9.1 mg/dL 8.5-10.1 [facility] Serum or plasma creatinine m easurement (mass/volume)Ordered By: Barrie Pike on 10-11-2023 Creatinine [Mass/Vol] 1.18 mg/dL 0.70-1.30 [facility] Comment on above: The validity of the calculated GFR & GFRAA in patients over 70 years has not been determined. Clinical correlation is essential. Serum or plasma urea nitroge n measurement (mass/volume)Ordered By: Barrie Pike on 10-11-2023 Urea nitrogen [Mass/Vol] 21 mg/dL 7-18 [facility] Soft Tissue Neck WITH Contra ston 10-11-2023 Soft Tissue Neck WITH Contrast [facility] [address] [place] [address] Soft Tissue Neck WITH Contrast MR#: [id number] Acct: [id number] Name: MESSI VILLA Rep #: [id number] : 1945 M 78 From: Eric griffiths MD PCP: Dr. Moiz Elise MD Status: DEP ER Study: Soft Tissue Neck WITH Contrast Date of Exam: 0 10/11/23 Exam# [id number] Ordering Dr: Barrie Pike DO [id number] STUDY: CT SOFT TISSUE NECK WITH CONTRAST REASON FOR EXAM: Male, 78 years old. Sore throat, swelling RADIATION DOSAGE (If Supplied By Facility): CTDIvol = ( 1552 ) mGy, DLP = ( 422.50 ) mGycm TECHNIQUE: The patient was scanned in a multi-detector CT scanner. High resolution transaxial imaging was performed following intravenous administration of 100 CC ISOVUE 300. Sagittal and coronal images were reconstructed. Individualized dose optimization techniques were used for this CT. COMPARISON: None. FINDINGS: Normal bilateral parotid glands. Normal bilateral headwaitress spaces. Normal bilateral parapharyngeal spaces. Normal bilateral carotid spaces. Normal bilateral sublingual and submandibular glands and spaces. There is thickening of the soft palate as well as the lingula. There is narrowing of the nasal airway at that site. Normal retropharyngeal space. Normal perivertebral space. Normal visualized bilateral faucial tonsils. The visualized tongue, tongue base and oropharynx are normal. The visualized cervical lymph nodes (levels I-) are within normal size limits, and maintain normal morphology. There is no demonstrated solid or cystic mass lesion. There is no abnormal contrast enhancement. Normal epiglottis, bilateral vallecula and hypopharynx. The pre-epiglottic and paraglottic adipose spaces are normal. Normal visualized bilateral piriform sinuses, aryepiglottic folds, vocal cords, and arytenoid-cricoid articulations. Normal subglottic trachea. Normal bilateral lobes of the thyroid gland. Normal visualized pulmonary apices. Opacification of the ethmoid sinus. Air-fluid level in the right maxillary sinus. Mucosal thickening of the left maxillary sinus. There is multilevel degenerative changes of the cervical spine. CT/Soft Tissue Neck WITH Contrast IMPRESSION: Maxillary and ethmoid sinusitis. Thickening of the posterior soft palate as well as the lingula. Electronically Signed: Eric Callahan MD at 13:58 EDT , CC: Dr. Moiz Elise MD; Dr. Barrie Pike DO Sustainability Purchasing Agent: Signed Normal [facility] Streptococcus pyogenes rRNA detection in throat by DNA probeOrdered By: Barrie Pike on 10-11-2023 S. pyogenes rRNA Probe Ql (Throat) [facility] Thin prep Papanicolaou smear with manual screeningOrdered By: Barrie Pike on 10-11-2023 Thin prep Papanicolaou smear with manual screening 6 5-15 [facility] Chest PA and Lateralon 10-08 Chest PA and Lateral [facility] [address] [place] [address] Chest PA and Lateral MR#: [id number] Acct: [id number] Name: MESSI VILLA Rep #: [id number] : 1945 M 78 From: Avery Florentino MD PCP: Dr. Moiz Elise MD Status: REG CL Study: Chest PA and Lateral Date of Exam: 10/09/23 Exam# [id number] Ordering Dr: Moiz Elise MD [id number] STUDY: X-RAY CHEST REASON FOR EXAM: Male, 78 years old. acute bronchitis TECHNIQUE: PA and lateral views of the chest. COMPARISON: None. FINDINGS: The lungs are clear and expanded. There is no demonstrated pleural abnormality. Normal size heart. Normal mediastinum and kimani. Normal visualized pulmonary arteries. Normal visualized aortic arch and descending thoracic aorta. Normal visualized thoracic spine. Normal visualized ribs, clavicles, and shoulders. There is no demonstrated abnormality of the visualized soft tissue structures of the upper abdomen. RAD/Chest PA and Lateral IMPRESSION: Normal x-ray examination of the chest. Electronically Signed: Avery Florentino MD at 23:39 EDT , CC: Dr. Moiz Elise MD Sustainability Purchasing Agent: Signed Normal [facility] Re-Evaluation - PT (1)on Re-Evaluation - PT (1) [facility] [address] [place] [address] [address] [place] [address] / REEVALUATION / MEDICARE RECERTIFICATION PHYSICAL THERAPY MR#: [id number] Acct: [id number] Name: MESSI VILLA Rep #: [id number] : 1945 78 From: Zulema Clinton PT, Cert. MDT Referring Dr.: Dr. Misael Conti MD Status:REG RCR Insurance: MEDICARE PART A B AARP Re-Evaluation Intro: Dr. Misael Conti MD, It has been my pleasure to treat MESSI VILLA over the last 17 visits for L SHLD ARTHROSCOPIC ROTATOR CUFF REPAIR 08/02/23. Please see the progress note below for an update on the physical therapy plan of care! Subjective Subjective: PATIENT REPORTS HE GOT A GOOD REPORT FROM THE SURGEON. STATES HE WANTS HIM TO EASE BACK INTO THINGS WITH BANDS THIS MONTH AND THEN BACK TO HIS WEIGHT MACHINES NEXT MONTH. PATIENT REPORTS HE HAS HAD MORE SORENESS WITH THIS SHOULDER THAN HE DID THE OTHER ONE. PATIENT REPORTS MOST OF THE SORENESS IS AT NIGHT. HE REPORTS THE ONLY ISSUE HE IS HAVING CURRENTLY IS SLEEPING. Objective Objective/Function: PATIENT WAS SEEN TODAY FOR RE-ASSESSMENT OF PROGRESS TOWARD THE SET PT GOALS AND THE NEED FOR FURTHER PHYSICAL THERAPY VS READINESS FOR DISCHARGE. THIS PATIENT IS MAKING GREAT PROGRESS WITH PT AND IS A GOOD CANDIDATE TO CONTINUE PT BASED ON PROGRESS MADE AND ROOM FOR FURHTER IMPROVEMENT BASED ON NEW ORDERS REC'D FROM SURGEON RELEASING PATIENT TO PREOGRESS TO FURTHER STRENGTHENING. PATIENT IS AGREEABLE. UPON EXAM TODAY: AROM L SHLD IN STANDING: FLEX 143 DEG ABD 155 DEG SUPINE PROM: FLEX 161 DEG ABD 152 DEG IR 83 DEG ER 74 DEG (IR AND ER MEASURED WITH 90 DEG SHLD ABD). ERP WITH SHLD ROM TESTING ALL PLANES IN SUPINE. STRENGTH: L SHLD FLEX 3-/5, ABD 3-/5, ER 3-/5, IR 4-/5. ELBOW 4/5. CENTRAL STERILIZATION TECHNICIAN 68 LBS. R CENTRAL STERILIZATION TECHNICIAN 80 LBS. PATIENT IS R HAND DOMINANT. Plan Plan Plan: 2X'S A WK X 10 VISITS. CONTINUE PASSIVE ROM AND AAROM TO ACHIEVE FULL ROM. PROGRESS TO PHASE III WITH TBANDS THIS MONTH AND THEM SLOWLY MOVE BACK TOWARDS GYM MACHINES IN OCTOBER TOLERATED. Balance/Gait/Functiona l tests Balance/Special Test Scores Quick DASH Score: 6.8175 Goals Goals Goal 1:: RESTORE FULL PROM L SHLD FLEX, IR AND ER ROM Goal Time Frame: 2-4 Weeks Goal 2:: RESTORE FULL AAROM L SHLD FLEX AND ER Goal Time Frame: 4-8 WKS Goal 3:: INCREASE L SHLD ROTATOR CUFF, PERISCAPULAR AND DELTOID STRENGTH TO 4/5 Goal Time Frame: 8-12 Weeks Goal 4:: PATIENT WILL BE INDEP WITH [facility] FOR CONTINUED IMPROVEMENT ONCE FORMAL PHYSICAL THERPAY CONCLUDES. Goal Time Frame: 8-12 Weeks Anticipated Interventions Anticipated Interventions Patient/Client Instruction: Educate patient on: Condition, Plan of Care and Risk Factors For the Purpose of:: To improve self management Therapeutic Exercise to Include: Strength training, Postural training, Flexibilty training, Neuromotor development, Passive ROM, Active ROM and Scapular Strength/Stabilization For the Purpose of:: To decrease pain, To improve muscle performance and motor function, To increase tolerance to activity/condition/pos ition, To improve ability of physical actions for home/community/work/le isure and To increase flexibility/ROM Re-Evaluation Ending Re-evaluation ending: Please do not hesitate to contact me at [phone] by phone or if you have questions or concerns regarding this new plan of care! Sincerely, Zulema Clinton, PT, Cert MDT 10/04/23 1120 CC: Dr. Misael Conti MD; Dr. Moiz Elise MD POONAM Signed For Medicare only, by signing this I certify the plan of care. Physicians Signature Date Normal [facility] Absolute lymphocyte countOrd ered By: Moiz Elise on 05-08-2023 Lymphocytes Auto (Unsp spec) [#/Vol] 1.46 10*3/uL 0.83-4.51 [facility] Basophil percentageOrdered B y: Moiz Elise on 05-08-2023 Basophils/100 WBC (Bld) 0.8 % 0-1 [facility] Bilirubin [Mass/Vol] 0.80 mg/dL 0.20-1.[address] [facility] Comment on above: For patients on eltr ombopag therapy, use of Dimension [place] TBIL is not recommended. Chloride [Moles/Vol] 103 mmol/L 98-[address] [facility] Cholesterol [Mass/Vol] 136 mg/dL <200 [facility] Comment on above: <200 mg/dL Desirable 200-240 mg/dL Borderline >240 mg/dL High Risk Eosinophils/100 WBC (Bld) 2.8 % 0-5 [facility] Glucose [Mass/Vol] 108 mg/dL 74-106 [facility] Comment on above: Fasting Glucose resu lt from 100 to 125 mg/dL suggests IMPAIRED HOMEOSTASIS per A.D.A. criteria. Neutrophils (Bld) [#/Vol] 4.1 10*3/uL 2.0-7.7 [facility] Neutrophils/100 WBC (Bld) 63.9 % 47-70 [facility] Potassium [Moles/Vol] 3.5 mmol/L 3.5-5.1 [facility] Protein [Mass/Vol] 7.6 g/dL 6.4-8.2 [facility] Sodium [Moles/Vol] 139 mmol/L 136-145 [facility] Triglyceride [Mass/Vol] 73 mg/dL <199 [facility] Comment on above: The drugs N-Acetylcy steine and Metamizole may falsely depress this assay.Serum Triglycerides Reference Interval Normal <150 mg/dL Borderline high 150 - 199 mg/dL High 200 - 499 mg/dL Very High > or = 500 mg/dL WBC (Bld) [#/Vol] 6.4 10*3/uL 4.4-11.0 [facility] Blood erythrocytes count (nu mber/volume)Ordered By: Moiz Elise on 05-08-2023 RBC (Bld) [#/Vol] 4.69 10*6/uL 4.6-6.2 [facility] Blood hemoglobin measurement (mass/volume)Ordered By: Moiz Elise on 05-08-2023 Hemoglobin (Bld) [Mass/Vol] 15.3 g/dL 13.0-16.5 [facility] Blood lymphocytes/100 leukoc ytesOrdered By: Moiz Elise on 05-08-2023 Lymphocytes/100 WBC (Bld) 22.8 % 19-41 [facility] Blood monocytes/100 leukocyt esOrdered By: Moiz Elise on 05-08-2023 Monocytes/100 WBC (Bld) 9.4 % 0-10 [facility] Blood platelet mean volumeOr dered By: Moiz Elise on 05-08-2023 Platelet mean volume (Bld) [Entitic vol] 10.3 fL 6.2-12.0 [facility] Determination of erythrocyte mean corpuscular volume (MCV)Ordered By: Mozi Elise on 05-08-2023 MCV (RBC) [Entitic vol] 96.6 fL 80-94 [facility] Hematocrit Auto (Bld) [Volum e fraction]Ordered By: Moiz Elise on 10-10-2023 Hematocrit (Bld) [Volume fraction] 45.3 % 40-54 [facility] Laboratory - Chemistry and C hemistry - challengeOrdered By: Moiz Elise on 05-08-2023 ALP [Catalytic activity/Vol] 91 U/L 45-117 [facility] ALT [Catalytic activity/Vol] 33 U/L 16-61 [facility] CO2 [Moles/Vol] 32.0 mmol/L 21.0-32.0 [facility] Globulin (S) [Mass/Vol] 3.9 g/dL 2.2-4.2 [facility] Urea nitrogen/Creatinine [Mass ratio] 19.7 mg/mg 10-20 [facility] - Hematology and Cell countsOrdered By: Moiz Elise on 05-08-2023 Erythrocyte distribution width (RBC) [Entitic vol] 46.5 fL 35.1-43.9 [facility] Erythrocyte distribution width (RBC) [Ratio] 13.2 % 11.6-14.6 [facility] Immature granulocytes/100 WBC (Bld) 0.300 % 0.0-0.9 [facility] Comment on above: IG% - Immature Granu locytes (promyelocytes, myelocytes and metamyelocytes) > 1% indicates that a LEFT SHIFT is Present. MCH (RBC) [Entitic mass] 32.6 pg 27.0-32.0 [facility] Nucleated RBC/100 WBC (Bld) [Ratio] 0 % 0-5 [facility] MCHC Auto (RBC) [Mass/Vol]Or dered By: Moiz Elise on 05-08-2023 MCHC (RBC) [Mass/Vol] 33.8 g/dL 32-36 [facility] No Panel InformationOrdered By: Moiz Elise on 05-08-2023 Estimated GFR (MDRD) Amer 78 mL/min >60 [facility] Comment on above: GFR Calc Estimated GFR (MDRD) Non-Af Amer 64 mL/min >60 [facility] Comment on above: Non- GFR Calc Thyroid Stimulating Hormone (TSH) 2.51 uIU/mL 0.358-3.74 [facility] Vitamin D 25-Hydroxy 41.9 ng/mL [facility] Comment on above: Vitamin D 25(OH) Sta tus Range Deficiency <20 ng/mL (50nmol/L) Insufficiency 20 - 30 ng/mL (50 - 75 nmol/L) Sufficiency 30 - 100 ng/mL (75 - 250 nmol/L) Toxicity >100 ng/mL (>250 nmol/L) Platelets bldOrdered By: Casey Elise on 05-08-2023 Platelets (Bld) [#/Vol] 247 10*3/uL 150-450 [facility] Serum or plasma albumin dulce urement (mass/volume)Ordered By: Moiz Elise on 05-08-2023 Albumin [Mass/Vol] 3.7 g/dL 3.2-5.0 [facility] Serum or plasma albumin/glob ulin mass ratioOrdered By: Moiz Elise on 05-08-2023 Albumin/Globulin [Mass ratio] 0.9 {ratio} 0.9-2.4 [facility] Serum or plasma calcium dulce urement (mass/volume)Ordered By: Moiz Elise on 05-08-2023 Calcium [Mass/Vol] 9.1 mg/dL 8.5-10.1 [facility] Serum or plasma cholesterol in HDL measurement (mass/volume)Ordered By: Moiz Elise on 05-08-2023 Cholesterol in HDL [Mass/Vol] 63 mg/dL >40 [facility] Comment on above: The drugs N-Acetylcy steine and Metamizole may falsely depress this assay. Reference Range HDL <40 mg/dL Low HDL Cholesterol HDL >or= 60 mg/dL High HDL Cholesterol Serum or plasma cholesterol in VLDL measurement (mass/volume)Ordered By: Moiz Elise on 05-08-2023 Cholesterol in VLDL [Mass/Vol] 15 mg/dL 5-40 [facility] Serum or plasma creatinine m easurement (mass/volume)Ordered By: Moiz Elise on 05-08-2023 Creatinine [Mass/Vol] 1.17 mg/dL 0.70-1.30 [facility] Comment on above: The validity of the calculated GFR & GFRAA in patients over 70 years has not been determined. Clinical correlation is essential. Serum or plasma low density lipoprotein (LDL) cholesterol measurement (mass/volume)Ordered By: Moiz Elise on 05-08-2023 Cholesterol in LDL [Mass/Vol] 58 mg/dL 0-130 [facility] Serum or plasma urea nitroge n measurement (mass/volume)Ordered By: Moiz Elise on 05-08-2023 Urea nitrogen [Mass/Vol] 23 mg/dL 7-18 [facility] Thin prep Papanicolaou smear with manual screeningOrdered By: Moiz Elise on 05-08-2023 Thin prep Papanicolaou smear with manual screening 21 U/L 15-37 [facility] Thin prep Papanicolaou smear with manual screening 4 5-15 [facility] Whole blood hemoglobin A1c/t otal hemoglobin ratio (mass fraction)Ordered By: Moiz Elise on 05-08-2023 HbA1c (Bld) [Mass fraction] 5.6 % 3.8-5.6 [facility] Comment on above: Normal < 5.7 % Predi abetic 5.7 - 6.4 % Diabetic >or= 6.5 % Please note range changes. No Panel InformationOrdered By: Moiz Elise on 01-19-2023 Prostate Specific Antigen Screen 2.10 ng/mL 0.00-4.00 [facility] Comment on above: This test was perfor med using the TPSA assay method for the[employer] chemistry system. Values obtained with differentassay methods cannot be used interchangably.When changing PSA assays in the course of monitoring apatient, additional sequential testing should be carriedout to confirm baseline values. Laboratory - Chemistry and C hemistry - challengeOrdered By: Dr. Elise on 10-16-2022 Free T4 [Mass/Vol] 1.01 ng/dL 0.76-1.46 [facility] No Panel InformationOrdered By: Dr. Elise on 10-16-2022 Thyroid Stimulating Hormone (TSH) 5.64 uIU/mL 0.358-3.74 [facility] Vitamin D 25-Hydroxy 50.5 ng/mL [facility] Comment on above: Vitamin D 25(OH) Sta tus Range Deficiency <20 ng/mL (50nmol/L) Insufficiency 20 - 30 ng/mL (50 - 75 nmol/L) Sufficiency 30 - 100 ng/mL (75 - 250 nmol/L) Toxicity >100 ng/mL (>250 nmol/L) Whole blood hemoglobin A1c/t otal hemoglobin ratio (mass fraction)Ordered By: Dr. Elise on 10-16-2022 HbA1c (Bld) [Mass fraction] 5.7 % 3.8-5.6 [facility] Comment on above: Normal < 5.7 % Predi abetic 5.7 - 6.4 % Diabetic >or= 6.5 % Please note range changes. Absolute lymphocyte countOrd ered By: Dr. Elise on 07-14-2022 Lymphocytes Auto (Unsp spec) [#/Vol] 1.70 10*3/uL 0.83-4.51 [facility] Basophil percentageOrdered B y: Dr. Elise on 07-14-2022 Basophils/100 WBC (Bld) 0.8 % 0-1 [facility] Bilirubin [Mass/Vol] 0.60 mg/dL 0.20-1.[address] [facility] Comment on above: For patients on eltr ombopag therapy, use of Dimension [place] TBIL is not recommended. Chloride [Moles/Vol] 106 mmol/L 98-[address] [facility] Cholesterol [Mass/Vol] 125 mg/dL <200 [facility] Comment on above: <200 mg/dL Desirable 200-240 mg/dL Borderline >240 mg/dL High Risk Eosinophils/100 WBC (Bld) 3.9 % 0-5 [facility] Glucose [Mass/Vol] 103 mg/dL 74-106 [facility] Comment on above: Fasting Glucose resu lt from 100 to 125 mg/dL suggests IMPAIRED HOMEOSTASIS per A.D.A. criteria. Neutrophils (Bld) [#/Vol] 2.7 10*3/uL 2.0-7.7 [facility] Neutrophils/100 WBC (Bld) 52.3 % 47-70 [facility] Potassium [Moles/Vol] 3.8 mmol/L 3.5-5.1 [facility] Protein [Mass/Vol] 7.4 g/dL 6.4-8.2 [facility] Sodium [Moles/Vol] 140 mmol/L 136-145 [facility] Triglyceride [Mass/Vol] 65 mg/dL <199 [facility] Comment on above: The drugs N-Acetylcy steine and Metamizole may falsely depress this assay.Serum Triglycerides Reference Interval Normal <150 mg/dL Borderline high 150 - 199 mg/dL High 200 - 499 mg/dL Very High > or = 500 mg/dL WBC (Bld) [#/Vol] 5.2 10*3/uL 4.4-11.0 [facility] Blood erythrocytes count (nu mber/volume)Ordered By: Dr. Elise on 07-14-2022 RBC (Bld) [#/Vol] 4.46 10*6/uL 4.6-6.2 [facility] Blood hemoglobin measurement (mass/volume)Ordered By: Dr. Elise on 07-14-2022 Hemoglobin (Bld) [Mass/Vol] 14.8 g/dL 13.0-16.5 [facility] Blood lymphocytes/100 leukoc ytesOrdered By: Dr. Elise on 07-14-2022 Lymphocytes/100 WBC (Bld) 32.9 % 19-41 [facility] Blood monocytes/100 leukocyt esOrdered By: Dr. Elise on 07-14-2022 Monocytes/100 WBC (Bld) 9.9 % 0-10 [facility] Blood platelet mean volumeOr dered By: Dr. Elise on 07-14-2022 Platelet mean volume (Bld) [Entitic vol] 10.0 fL 6.2-12.0 [facility] Determination of erythrocyte mean corpuscular volume (MCV)Ordered By: Dr. Elise on 07-14-2022 MCV (RBC) [Entitic vol] 94.4 fL 80-94 [facility] Hematocrit Auto (Bld) [Volum e fraction]Ordered By: Dr. Elise on 07-14-2022 Hematocrit (Bld) [Volume fraction] 42.1 % 40-54 [facility] - Chemistry and C hemistry - challengeOrdered By: Dr. Elise on 07-14-2022 ALP [Catalytic activity/Vol] 80 U/L 45-117 [facility] ALT [Catalytic activity/Vol] 24 U/L 16-61 [facility] CO2 [Moles/Vol] 31.0 mmol/L 21.0-32.0 [facility] Free T4 [Mass/Vol] 1.07 ng/dL 0.76-1.46 [facility] Globulin (S) [Mass/Vol] 3.9 g/dL 2.2-4.2 [facility] Urea nitrogen/Creatinine [Mass ratio] 20.9 mg/mg 10-20 [facility] - Hematology and Cell countsOrdered By: Dr. Elise on 07-14-2022 Erythrocyte distribution width (RBC) [Entitic vol] 44.5 fL 35.1-43.9 [facility] Erythrocyte distribution width (RBC) [Ratio] 12.9 % 11.6-14.6 [facility] Immature granulocytes/100 WBC (Bld) 0.200 % 0.0-0.9 [facility] Comment on above: IG% - Immature Granu locytes (promyelocytes, myelocytes and metamyelocytes) > 1% indicates that a LEFT SHIFT is Present. MCH (RBC) [Entitic mass] 33.2 pg 27.0-32.0 [facility] Nucleated RBC/100 WBC (Bld) [Ratio] 0 % 0-5 [facility] MCHC Auto (RBC) [Mass/Vol]Or dered By: Dr. Elise on 07-14-2022 MCHC (RBC) [Mass/Vol] 35.2 g/dL 32-36 [facility] No Panel InformationOrdered By: Dr. Elise on 07-14-2022 Estimated GFR (MDRD) Amer 79 mL/min >60 [facility] Comment on above: GFR Calc Estimated GFR (MDRD) Non-Af Amer 66 mL/min >60 [facility] Comment on above: Non- GFR Calc Thyroid Stimulating Hormone (TSH) 3.77 uIU/mL 0.358-3.74 [facility] Vitamin D 25-Hydroxy 39.9 ng/mL [facility] Comment on above: Vitamin D 25(OH) Sta tus Range Deficiency <20 ng/mL (50nmol/L) Insufficiency 20 - 30 ng/mL (50 - 75 nmol/L) Sufficiency 30 - 100 ng/mL (75 - 250 nmol/L) Toxicity >100 ng/mL (>250 nmol/L) Platelets bldOrdered By: Dr. Elise on 07-14-2022 Platelets (Bld) [#/Vol] 217 10*3/uL 150-450 [facility] Serum or plasma albumin dulce urement (mass/volume)Ordered By: Dr. Elise on 07-14-2022 Albumin [Mass/Vol] 3.5 g/dL 3.2-5.0 [facility] Serum or plasma albumin/glob ulin mass ratioOrdered By: Dr. Elise on 07-14-2022 Albumin/Globulin [Mass ratio] 0.9 {ratio} 0.9-2.4 [facility] Serum or plasma calcium dulce urement (mass/volume)Ordered By: Dr. Elise on 07-14-2022 Calcium [Mass/Vol] 8.8 mg/dL 8.5-10.1 [facility] Serum or plasma cholesterol in HDL measurement (mass/volume)Ordered By: Dr. Elise on 07-14-2022 Cholesterol in HDL [Mass/Vol] 56 mg/dL >40 [facility] Comment on above: The drugs N-Acetylcy steine and Metamizole may falsely depress this assay. Reference Range HDL <40 mg/dL Low HDL Cholesterol HDL >or= 60 mg/dL High HDL Cholesterol Serum or plasma cholesterol in VLDL measurement (mass/volume)Ordered By: Dr. Elise on 07-14-2022 Cholesterol in VLDL [Mass/Vol] 13 mg/dL 5-40 [facility] Serum or plasma creatinine m easurement (mass/volume)Ordered By: Dr. Elise on 07-14-2022 Creatinine [Mass/Vol] 1.15 mg/dL 0.70-1.30 [facility] Comment on above: The validity of the calculated GFR & GFRAA in patients over 70 years has not been determined. Clinical correlation is essential. Serum or plasma low density lipoprotein (LDL) cholesterol measurement (mass/volume)Ordered By: Dr. Elise on 07-14-2022 Cholesterol in LDL [Mass/Vol] 56 mg/dL 0-130 [facility] Serum or plasma urea nitroge n measurement (mass/volume)Ordered By: Dr. Elise on 07-14-2022 Urea nitrogen [Mass/Vol] 24 mg/dL 7-18 [facility] Thin prep Papanicolaou smear with manual screeningOrdered By: Dr. Elise on 07-14-2022 Thin prep Papanicolaou smear with manual screening 23 U/L 15-37 [facility] Thin prep Papanicolaou smear with manual screening 3 5-15 [facility] Whole blood hemoglobin A1c/t otal hemoglobin ratio (mass fraction)Ordered By: Dr. Elise on 07-14-2022 HbA1c (Bld) [Mass fraction] 5.9 % 3.8-5.6 [facility] Comment on above: Normal < 5.7 % Predi abetic 5.7 - 6.4 % Diabetic >or= 6.5 % Please note range changes. Basophil percentageon 2021 Chloride [Moles/Vol] 105 mmol/L 98-[address] [facility] Work Phone: Glucose [Mass/Vol] 98 mg/dL 74-106 [facility] Work Phone: Potassium [Moles/Vol] 3.6 mmol/L 3.5-5.1 [facility] Work Phone: Sodium [Moles/Vol] 139 mmol/L 136-145 [facility] Work Phone: Laboratory - Chemistry and C hemistry - challengeon 03-29-2022 CO2 [Moles/Vol] 30.0 mmol/L 21.0-32.0 [facility] Work Phone: Urea nitrogen/Creatinine [Mass ratio] 18.3 mg/mg 10-20 [facility] Work Phone: No Panel Informationon 03-29 Estimated GFR (MDRD) Amer 76 mL/min >60 [facility] Work Phone: Comment on above: GFR Calc Estimated GFR (MDRD) Non-Af Amer 62 mL/min >60 [facility] Work Phone: Comment on above: Non- GFR Calc Serum or plasma calcium dulce urement (mass/volume)on 03-29-2022 Calcium [Mass/Vol] 9.2 mg/dL 8.5-10.1 [facility] Work Phone: [phone] Serum or plasma creatinine m easurement (mass/volume)on 03-29-2022 Creatinine [Mass/Vol] 1.20 mg/dL 0.70-1.30 [facility] Work Phone: Comment on above: The validity of the calculated GFR & GFRAA in patients over 70 years has not been determined. Clinical correlation is essential. Serum or plasma urea nitroge n measurement (mass/volume)on 03-29-2022 Urea nitrogen [Mass/Vol] 22 mg/dL 7-18 [facility] Work Phone: [phone] Thin prep Papanicolaou smear with manual screeningon 03-29-2022 Thin prep Papanicolaou smear with manual screening 4 5-15 [facility] Work Phone: [phone] Whole blood hemoglobin A1c/t otal hemoglobin ratio (mass fraction)on 03-29-2022 HbA1c (Bld) [Mass fraction] 5.8 % 3.8-5.6 [facility] Work Phone: Comment on above: Normal < 5.7 % Predi abetic 5.7 - 6.4 % Diabetic >or= 6.5 % Please note range changes. Absolute lymphocyte counton 03-14-2022 Lymphocytes Auto (Unsp spec) [#/Vol] 1.62 10*3/uL 0.83-4.51 [facility] Work Phone: Basophil percentageon 2021 Basophil percentage 5-10 SEEN /hpf 0-5 [facility] Work Phone: [phone] Basophils/100 WBC (Bld) 0.4 % 0-1 [facility] Work Phone: [phone] Bilirubin [Mass/Vol] 0.60 mg/dL 0.20-1.[address] [facility] Work Phone: [phone] Comment on above: For patients on eltr ombopag therapy, use of Dimension [place] TBIL is not recommended. Chloride [Moles/Vol] 103 mmol/L 98-[address] [facility] Work Phone: [phone] Cholesterol [Mass/Vol] 126 mg/dL <200 [facility] Work Phone: [phone] Comment on above: <200 mg/dL Desirable 200-240 mg/dL Borderline >240 mg/dL High Risk Eosinophils/100 WBC (Bld) 3.8 % 0-5 [facility] Work Phone: [phone] Glucose [Mass/Vol] 104 mg/dL 74-106 [facility] Work Phone: [phone] Comment on above: Fasting Glucose resu lt from 100 to 125 mg/dL suggests IMPAIRED HOMEOSTASIS per A.D.A. criteria. Neutrophils (Bld) [#/Vol] 2.8 10*3/uL 2.0-7.7 [facility] Work Phone: [phone] Neutrophils/100 WBC (Bld) 53.0 % 47-70 [facility] Work Phone: [phone] Potassium [Moles/Vol] 3.7 mmol/L 3.5-5.1 [facility] Work Phone: Protein [Mass/Vol] 7.6 g/dL 6.4-8.2 [facility] Work Phone: [phone] Sodium [Moles/Vol] 140 mmol/L 136-145 [facility] Work Phone: [phone] Triglyceride [Mass/Vol] 76 mg/dL <199 [facility] Work Phone: Comment on above: The drugs N-Acetylcy steine and Metamizole may falsely depress this assay.Serum Triglycerides Reference Interval Normal <150 mg/dL Borderline high 150 - 199 mg/dL High 200 - 499 mg/dL Very High > or = 500 mg/dL WBC (Bld) [#/Vol] 5.2 10*3/uL 4.4-11.0 [facility] Work Phone: Bilirubin Test strip Ql (U)o n 03-14-2022 Bilirubin Ql (U) Negative Negative [facility] Work Phone: Blood erythrocytes count (nu mber/volume)on 03-14-2022 RBC (Bld) [#/Vol] 4.65 10*6/uL 4.6-6.2 [facility] Work Phone: Blood hemoglobin measurement (mass/volume)on 03-14-2022 Hemoglobin (Bld) [Mass/Vol] 15.0 g/dL 13.0-16.5 [facility] Work Phone: Blood lymphocytes/100 leukoc yteson 03-14-2022 Lymphocytes/100 WBC (Bld) 31.1 % 19-41 [facility] Work Phone: [phone] Blood monocytes/100 leukocyt eson 03-14-2022 Monocytes/100 WBC (Bld) 11.5 % 0-10 [facility] Work Phone: Blood platelet mean volumeon 03-14-2022 Platelet mean volume (Bld) [Entitic vol] 10.6 fL 6.2-12.0 [facility] Work Phone: [phone] Determination of erythrocyte mean corpuscular volume (MCV)on 03-14-2022 MCV (RBC) [Entitic vol] 95.7 fL 80-94 [facility] Work Phone: Hematocrit Auto (Bld) [Volum e fraction]on 03-14-2022 Hematocrit (Bld) [Volume fraction] 44.5 % 40-54 [facility] Work Phone: [phone] Ketones Test strip Ql (U)on 03-14-2022 Ketones Ql (U) Negative Negative [facility] Work Phone: [phone] Laboratory - Chemistry and C hemistry - challengeon 03-14-2022 ALP [Catalytic activity/Vol] 81 U/L 45-117 [facility] Work Phone: [phone] ALT [Catalytic activity/Vol] 25 U/L 16-61 [facility] Work Phone: [phone] CO2 [Moles/Vol] 32.0 mmol/L 21.0-32.0 [facility] Work Phone: Free T4 [Mass/Vol] 1.06 ng/dL 0.76-1.46 [facility] Work Phone: [phone] Globulin (S) [Mass/Vol] 4.0 g/dL 2.2-4.2 [facility] Work Phone: [phone] Urea nitrogen/Creatinine [Mass ratio] 18.9 mg/mg 10-20 [facility] Work Phone: [phone] Laboratory - Hematology and Cell countson 03-14-2022 Erythrocyte distribution width (RBC) [Entitic vol] 46.3 fL 35.1-43.9 [facility] Work Phone: [phone] Erythrocyte distribution width (RBC) [Ratio] 13.2 % 11.6-14.6 [facility] Work Phone: [phone] Immature granulocytes/100 WBC (Bld) 0.200 % 0.0-0.9 [facility] Work Phone: [phone] Comment on above: IG% - Immature Granu locytes (promyelocytes, myelocytes and metamyelocytes) > 1% indicates that a LEFT SHIFT is Present. MCH (RBC) [Entitic mass] 32.3 pg 27.0-32.0 [facility] Work Phone: [phone] Nucleated RBC/100 WBC (Bld) [Ratio] 0 % 0-5 [facility] Work Phone: [phone] MCHC Auto (RBC) [Mass/Vol]on 03-14-2022 MCHC (RBC) [Mass/Vol] 33.7 g/dL 32-36 [facility] Work Phone: [phone] Mucus LM Ql (Urine sed)on Mucus Ql (Urine sed) 0 SEEN /hpf [facility] Work Phone: [phone] Nitrite Test strip Ql (U)on 03-14-2022 Nitrite Ql (U) Negative Negative [facility] Work Phone: [phone] No Panel Informationon 03-14 Estimated GFR (MDRD) Amer 71 mL/min >60 [facility] Work Phone: [phone] Comment on above: GFR Calc Estimated GFR (MDRD) Non-Af Amer 59 mL/min >60 [facility] Work Phone: [phone] Comment on above: Non- GFR Calc Thyroid Stimulating Hormone (TSH) 3.40 uIU/mL 0.358-3.74 [facility] Work Phone: Vitamin D 25-Hydroxy 46.2 ng/mL [facility] Work Phone: Comment on above: Vitamin D 25(OH) Sta tus Range Deficiency <20 ng/mL (50nmol/L) Insufficiency 20 - 30 ng/mL (50 - 75 nmol/L) Sufficiency 30 - 100 ng/mL (75 - 250 nmol/L) Toxicity >100 ng/mL (>250 nmol/L) Platelets bldon 03-14-2022 Platelets (Bld) [#/Vol] 221 10*3/uL 150-450 [facility] Work Phone: [phone] Protein Test strip Ql (U)on 03-14-2022 Protein Ql (U) Negative Negative [facility] Work Phone: Serum or plasma albumin dulce urement (mass/volume)on 03-14-2022 Albumin [Mass/Vol] 3.6 g/dL 3.2-5.0 [facility] Work Phone: [phone] Serum or plasma albumin/glob ulin mass ratioon 03-14-2022 Albumin/Globulin [Mass ratio] 0.9 {ratio} 0.9-2.4 [facility] Work Phone: [phone] Serum or plasma calcium dulce urement (mass/volume)on 03-14-2022 Calcium [Mass/Vol] 9.2 mg/dL 8.5-10.1 [facility] Work Phone: [phone] Serum or plasma cholesterol in HDL measurement (mass/volume)on 03-14-2022 Cholesterol in HDL [Mass/Vol] 54 mg/dL >40 [facility] Work Phone: Comment on above: The drugs N-Acetylcy steine and Metamizole may falsely depress this assay. Reference Range HDL <40 mg/dL Low HDL Cholesterol HDL >or= 60 mg/dL High HDL Cholesterol Serum or plasma cholesterol in VLDL measurement (mass/volume)on 03-14-2022 Cholesterol in VLDL [Mass/Vol] 15 mg/dL 5-40 [facility] Work Phone: [phone] Serum or plasma creatinine m easurement (mass/volume)on 03-14-2022 Creatinine [Mass/Vol] 1.27 mg/dL 0.70-1.30 [facility] Work Phone: Comment on above: The validity of the calculated GFR & GFRAA in patients over 70 years has not been determined. Clinical correlation is essential. Serum or plasma low density lipoprotein (LDL) cholesterol measurement (mass/volume)on 03-14-2022 Cholesterol in LDL [Mass/Vol] 57 mg/dL 0-130 [facility] Work Phone: Serum or plasma urea nitroge n measurement (mass/volume)on 03-14-2022 Urea nitrogen [Mass/Vol] 24 mg/dL 7-18 [facility] Work Phone: Squamous epithelial cells de tection in urine sediment by light microscopyon 03-14-2022 Epithelial cells.squamous LM Ql (Urine sed) 0 SEEN /hpf 0-5 [facility] Work Phone: Thin prep Papanicolaou smear with manual screeningon 03-14-2022 Thin prep Papanicolaou smear with manual screening 25 U/L 15-37 [facility] Work Phone: Thin prep Papanicolaou smear with manual screening 5 5-15 [facility] Work Phone: Urine blood detectionon 02-27 RBC Ql (U) Negative Negative [facility] Work Phone: RBC Ql (U) 0 SEEN /hpf 0-5 [facility] Work Phone: Urine clarityon 03-14-2022 Clarity (U) Clear Clear [facility] Work Phone: Urine color determinationon 03-14-2022 Color (U) Yellow Yellow [facility] Work Phone: Urine glucose detectionon Glucose Ql (U) Normal mg/dl Normal [facility] Work Phone: Urine leukocyte esterase det ection by dipstickon 03-14-2022 Leukocyte esterase Test strip Ql (U) 100 /ul Negative [facility] Work Phone: Urine pHon 03-14-2022 pH (U) 7.0 [pH] 5.0 - 8.0 [facility] Work Phone: Urine sediment bacteria coun t by microscopy (number/high power field)on 03-14-2022 Bacteria LM.HPF (Urine sed) [#/Area] 0 /[HPF] None Seen [facility] Work Phone: Urine specific gravity measu rementon 03-14-2022 Specific gravity (U) [Rel density] 1.010 1.002-1.030 [facility] Work Phone: Urobilinogen Auto test strip Ql (U)on 03-14-2022 Urobilinogen Ql (U) Normal mg/dl Normal [facility] Work Phone: Culture, urineon 11-23-2021 Bacteria identified Cx Nom (U) Enterococcus faecalis [facility] Work Phone: Culture, urineon 09-29-2021 Bacteria identified Cx Nom (U) Enterococcus faecalis [facility] Work Phone: Office Visiton 03-22-2017 Documentation of current medications (procedure) Done Invalid Interpretation Code [facility] Work Phone: [phone] Fall risk assessment No [facility] Work Phone: [phone] Protein mass conc Done [facility] Work Phone: [phone] Lab Report: Lipid Profileon 02-20-2017 Cholesterol 127 mg/dL 200 [facility] Work Phone: [phone] HDL Cholesterol 64 mg/dL [facility] Work Phone: [phone] LDL Cholesterol 51 mg/dL 0-130 [facility] Work Phone: [phone] Triglyceride 62 mg/dL [facility] Work Phone: [phone] very low density lipoproteins 12 mg/dL 5-40 [facility] Work Phone: [phone] Lab Report: Liver Profileon 02-20-2017 Alanine aminotransferase (ALT) 22 U/L 12-78 [facility] Work Phone: [phone] Albumin 3.6 g/dL 3.4-5.0 [facility] Work Phone: [phone] Alkaline phosphatase (ALP) 95 U/L Invalid Interpretation Code 45-117 [facility] Work Phone: [phone] ALP enzyme act/vol (Bld) 95 U/L 45-117 [facility] Work Phone: [phone] Aspartate aminotransferase (AST) 24 U/L 15-37 [facility] Work Phone: [phone] Bilirubin (direct) 0.21 mg/dL 0.00-0.30 [facility] Work Phone: [phone] Bilirubin (total) 1.00 mg/dL 0.20-1.00 [facility] Work Phone: [phone] Globulin 4.1 g/dL High 2.3-3.5 [facility] Work Phone: [phone] Globulin mass conc (S) 4.1 g/dL High 2.3-3.5 [facility] Work Phone: [phone] Protein 7.7 g/dL 6.4-8.2 [facility] Work Phone: [phone] Lab Report: PSA,Total - Maria Elena al Screenon 02-20-2017 prostate specific antigen (PSA) screening 9.30 ng/mL High 0.00-4.00 [facility] Work Phone: [phone] Protein mass conc 9.30 ng/mL High 0.00-4.00 [facility] Work Phone: [phone] Office Visiton 12-19-2016 Documentation of current medications (procedure) Done Invalid Interpretation Code [facility] Work Phone: [phone] Fall risk assessment No [facility] Work Phone: [phone] Protein mass conc Done [facility] Work Phone: [phone] Replaced Document: Will E CG Observationson 12-19-2016 BUN (urea nitrogen) Sinus Rhythm - occasional ectopic ventricular beat -Right bundle branch block with left axis -bifascicular block. ABNORMAL Invalid Interpretation Code [facility] Work Phone: [phone] EKG QRS axis -75 deg [facility] Work Phone: [phone] GE use only - for [employer] import when terms are not otherwise specified 454 ms Invalid Interpretation Code [facility] Work Phone: [phone] P Solomon 31 deg [employer] Work Phone: [phone] P wave axis, electrocardiogram 31 deg Invalid Interpretation Code [employer] Work Phone: [phone] SD Interval 214 ms [employer] Work Phone: [phone] SD interval, electrocardiogram 214 ms Invalid Interpretation Code [employer] Work Phone: [phone] Pulse (Heart Rate) 65 /min Invalid Interpretation Code [employer] Work Phone: [phone] QRS axis, electrocardiogram -75 deg Invalid Interpretation Code [employer] Work Phone: [phone] QRS Duration 158 ms [employer] Work Phone: [phone] QRS duration, electrocardiogram 158 ms Invalid Interpretation Code [employer] Work Phone: [phone] QT Interval new path ms [employer] Work Phone: [phone] QT interval, electrocardiogram new path ms Invalid Interpretation Code [employer] Work Phone: [phone] QTc Tobias 454 ms [employer] Work Phone: [phone] T Solomon 51 deg [employer] Work Phone: [phone] T wave axis, electrocardiogram 51 deg Invalid Interpretation Code [employer] Work Phone: [phone] Urea nitrogen [Mass/Vol] Sinus Rhythm - occasional ectopic ventricular beat -Right bundle branch block with left axis -bifascicular block. 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 Left ventricular Ejection fraction 65 % [employer] Work Phone: [phone] Lab Report: Basic Metabolic Profile (BMP)on 08-18-2016 Anion gap 8 mmol/L Invalid Interpretation Code 12-11 [facility] Work Phone: [phone] Anion gap [Moles/Vol] 8 mmol/L - [facility] Work Phone: [phone] BUN/Creatinine Ratio 19.7 RATIO 10- [facility] Work Phone: [phone] Calcium 8.7 mg/dL 8.5-10.1 [facility] Work Phone: [phone] Chloride 101 mmol/L 98-107 [facility] Work Phone: [phone] CO2 30.0 mmol/L Invalid Interpretation Code 21.0-32.0 [facility] Work Phone: [phone] CO2 (BldV) [Partial pressure] 30.0 mmol/L 21.0-32.0 [facility] Work Phone: [phone] Creatinine 1.17 mg/dL 0.70-1.30 [facility] Work Phone: [phone] eGFR (non-black) 65 mL/min/{1.73_m2} >60 [facility] Work Phone: [phone] eGFR (non-black) 79 mL/min/{1.73_m2} Invalid Interpretation Code >60 [facility] Work Phone: [phone] EST GFR - AA 79 mL/min >60 [facility] Work Phone: [phone] Glucose 84 mg/dL Invalid Interpretation Code 70-110 [facility] Work Phone: [phone] Glucose [Mass/Vol] 84 mg/dL 70-110 [facility] Work Phone: [phone] Potassium 3.5 mmol/L 3.5-5.1 [facility] Work Phone: [phone] Sodium 139 mmol/L 136-145 [facility] Work Phone: [phone] Urea nitrogen 23 mg/dL High 7-18 [facility] Work Phone: [phone] Lab Report: Lipid Profileon 08-18-2016 Cholesterol 132 mg/dL Invalid Interpretation Code 200 [facility] Work Phone: [phone] HDL Cholesterol 57 mg/dL Invalid Interpretation Code [facility] Work Phone: [phone] LDL Cholesterol 62 mg/dL Invalid Interpretation Code 0-130 [facility] Work Phone: [phone] Triglyceride 67 mg/dL Invalid Interpretation Code [facility] Work Phone: [phone] very low density lipoproteins 13 mg/dL Invalid Interpretation Code 5-40 [employer] Phone: [phone] Lab Report: Liver Profileon 08-18-2016 Alanine aminotransferase (ALT) 33 U/L Invalid Interpretation Code 12-78 [employer] Phone: [phone] Albumin 3.7 g/dL Invalid Interpretation Code 3.4-5.0 [employer] Phone: [phone] Alkaline phosphatase (ALP) 87 U/L Invalid Interpretation Code 45-117 [employer] Work Phone: [phone] ALP (Bld) [Catalytic activity/Vol] 87 U/L 45-117 [employer] Phone: [phone] Aspartate aminotransferase (AST) 26 U/L Invalid Interpretation Code 15-37 [employer] Phone: [phone] Bilirubin (direct) 0.13 mg/dL Invalid Interpretation Code 0.00-0.30 [employer] Phone: [phone] Bilirubin (total) 0.50 mg/dL Invalid Interpretation Code 0.20-1.00 [employer] Phone: [phone] Globulin 3.7 g/dL High 2.3-3.5 [employer] Phone: [phone] Globulin (S) [Mass/Vol] 3.7 g/dL High 2.3-3.5 [employer] Phone: [phone] Protein 7.4 g/dL Invalid Interpretation Code 6.4-8.2 [employer] Work Phone: [phone]) Lab Report: Thyroid Stim Hor corrine (TSH)on 08-18-2016 Thyroid stimulating hormone (TSH) 9.01 u[iU]/mL High 0.358-3.74 [employer] Phone: [phone] Office Visiton 08-15-2016 Documentation of current medications (procedure) Done Invalid Interpretation Code [employer] Phone: [phone] Office Visiton 08-10-2015 Tobacco smoking status NHIS Never smoker [employer] Work Phone: [phone] Tobacco use CPHS Never smoker Invalid Interpretation Code [employer] Work Phone: [phone] Office Visiton 01-22-2015 cardiac risk group C [facility] Work Phone: [phone] General cardiovascular disease 10Y risk [#] [place].Raffy N/A [facility] Work Phone: [phone] 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 04-03-2014 Cholesterol to HDL Ratio 2.53 {ratio} [facility] Work Phone: [phone] LDL Cholesterol 72 mg/dL [employer] Work Phone: [phone] LDL/HDL ratio, serum 1.21 [facility] Work Phone: [phone]) Lab Report: CBCon 11-06-2013 Erythrocytes (RBC) 4.60 10*6/uL Normal 4.6-6.[address] [facility] Work Phone: [phone] Hematocrit (Bld) [Volume fraction] 42.3 % Normal 40-54 [facility] Work Phone: [phone] Hematocrit (HCT) 42.3 % Normal 40-54 [facility] Work Phone: [phone] Hemoglobin (HGB) 14.6 g/dL Normal 13.0-16.5 [employer] Work Phone: [phone] MCH 31.7 pg Normal 27.0-32.0 [facility] Work Phone: [phone] MCH (RBC) [Entitic mass] 31.7 pg Normal 27.0-32.0 [facility] Work Phone: [phone] MCHC 34.5 G/GL Normal 32-36 [facility] Work Phone: [phone] MCHC (RBC) [Mass/Vol] 34.5 G/GL Normal 32-[address] [facility] Work Phone: [phone] MCV 92.0 fL Normal 80-94 [facility] Work Phone: [phone] MCV (RBC) [Entitic vol] 92.0 fL Normal 80-94 [facility] Work Phone: [phone] Platelet mean volume (Bld) [Entitic vol] 10.3 fL Normal 6.2-12.0 [facility] Work Phone: [phone] Platelets 222 10*3/mm3 Normal 150-450 [facility] Work Phone: [phone] Platelets (Bld) [#/Vol] 222 10*3/mm3 Normal 150-450 [facility] Work Phone: [phone] PMV by Radha 10.3 fL Normal 6.2-12.0 [facility] Work Phone: [phone] RBC (Bld) [#/Vol] 4.60 10*6/uL Normal 4.6-6.2 [facility] Work Phone: [phone] RDW-CA 45.1 fl High 35.1-43.9 [facility] Work Phone: [phone] WBC (Bld) [#/Vol] 5.2 10*3/uL Normal 4.4-11.0 [facility] Work Phone: [phone] WBC (Leukocytes) 5.2 10*3/uL Normal 4.4-11.0 [facility] Work Phone: [phone] Lab Report: PTon 11-06-2013 INR Coag (PPP) [Relative time] 1.0 {INR} Normal [facility] Work Phone: [phone] INR in blood by coagulation 1.0 {INR} Normal [facility] Work Phone: [phone] prothrombin time, actual/normal, ratio 12.7 SECONDS Normal 11.9-14.4 [facility] Work Phone: [phone] PTP 12.7 SECONDS Normal 11.9-14.4 [facility] Work Phone: [phone] Replaced Document: [employer] E CG Observationson 11-04-2013 BUN (urea nitrogen) Sinus Rhythm -Right bundle branch block with left axis -bifascicular block. ABNORMAL Invalid Interpretation Code [facility] Work Phone: [phone] P wave axis, electrocardiogram 33 deg Invalid Interpretation Code [facility] Work Phone: [phone] SD interval, electrocardiogram 204 ms Invalid Interpretation Code [facility] Work Phone: [phone] Pulse (Heart Rate) 71 /min Invalid Interpretation Code [facility] Work Phone: [phone] QRS axis, electrocardiogram -80 deg Invalid Interpretation Code [facility] Work Phone: [phone] QRS duration, electrocardiogram 162 ms Invalid Interpretation Code [facility] Work Phone: [phone] QT interval, electrocardiogram new path ms Invalid Interpretation Code [facility] Work Phone: [phone] T wave axis, electrocardiogram 58 deg Invalid Interpretation Code [facility] Work Phone: [phone] Replaced Document: Will Sánchez CG Observationson 10-02-2012 Pulse (Heart Rate) 443 ms Invalid Interpretation Code [facility] Work Phone: [phone] Lab Reporton 01-16-2012 Globulin 2.8 g/dL Invalid Interpretation Code [facility] Work Phone: [phone] Globulin (S) [Mass/Vol] 2.8 g/dL [facility] Work Phone: [phone] Culture, urine Bacteria identified Cx Nom (U) Enterococcus faecalis [facility] Work Phone: Vital Signs Date Time Vital Sign Value Performing Clinician Faci lity 06-11-2024 12:07-0500 Diastolic blood pressure 73 mm[Hg] Annetta Krause MD Work Phone: [facility] 06-11-2024 12:07-0500 Heart rate 55 /min Annetta Krause MD Work Phone: [facility] 06-11-2024 12:07-0500 Systolic blood pressure 162 mm[Hg] Annetta Krause MD Work Phone: [facility] 10-11-2023 14:23-0400 Body temperature 97.6 [degF] Dr. Moiz Elise Work Phone: [facility] 10-11-2023 14:23-0400 Diastolic blood pressure 86 mm[Hg] Dr. Moiz Elise Work Phone: [facility] 10-11-2023 14:23-0400 Heart rate 64 /min Dr. Moiz Elise Work Phone: [facility] 10-11-2023 14:23-0400 Respiratory rate 22 /min Dr. Moiz Elise Work Phone: [facility] 10-11-2023 14:23-0400 SaO2% (BldA) [Mass fraction] 95 % Dr. Moiz Elise Work Phone: [facility] 10-11-2023 14:23-0400 Systolic blood pressure 156 mm[Hg] Dr. Moiz Elise Work Phone: [facility] 10-11-2023 12:00-0400 Inhaled oxygen flow rate 3 L/min Dr. Moiz Elise Work Phone: [facility] 10-11-2023 09:21-0400 Body height 175.[address] Moiz Elise Work Phone: [facility] 10-11-2023 09:21-0400 Body mass index (BMI) [Ratio] 26.5 kg/m2 Dr. Moiz Elise Work Phone: [facility] 10-11-2023 09:21-0400 Body weight 81.[address] Moiz Elise Work Phone: [facility] 08-31-2023 13:31-0500 Body height 172.[address] Moiz Elise Work Phone: [facility] 08-31-2023 13:31-0500 Body mass index (BMI) [Ratio] 27.3 kg/m2 Dr. Moiz Elise Work Phone: [facility] 08-31-2023 13:31-0500 Body weight 81.[address] Mozi Elise Work Phone: [facility] 08-31-2023 13:31-0500 Diastolic blood pressure 60 mm[Hg] Dr. Moiz Elise Work Phone: [facility] 08-31-2023 13:31-0500 Heart rate 52 /min Dr. Moiz Elise Work Phone: [facility] 08-31-2023 13:31-0500 Respiratory rate 18 /min Dr. Moiz Elise Work Phone: [facility] 08-31-2023 13:31-0500 SaO2% (BldA) [Mass fraction] 96 % Dr. Moiz Elise Work Phone: [facility] 08-31-2023 13:31-0500 Systolic blood pressure 112 mm[Hg] Dr. Moiz Elise Work Phone: [facility] 05-03-2023 14:25-0400 Body height 172.[address] Moiz Elise Work Phone: [phone] [place] [address] 05-03-2023 14:25-0400 Body mass index (BMI) [Ratio] 27.5 kg/m2 Dr. Moiz Elise Work Phone: [phone] [address] 05-03-2023 14:25-0400 Body weight 82.[address] Moiz Elise Work Phone: [phone] [place] [address] 05-03-2023 14:25-0400 Diastolic blood pressure 75 mm[Hg] Dr. Moiz Elise Work Phone: [phone] [place] [address] 05-03-2023 14:25-0400 Heart rate 61 /min Dr. Moiz Elise Work Phone: [phone] [place] [address] 05-03-2023 14:25-0400 Respiratory rate 18 /min Dr. Moiz Elise Work Phone: [facility] 05-03-2023 14:25-0400 Systolic blood pressure 134 mm[Hg] Dr. Moiz Elise Work Phone: [phone] [place] [address] 02-22-2023 10:55-0400 Body mass index (BMI) [Ratio] 26.8 kg/m2 Dr. Moiz Elise Work Phone: 1(026)[phone] [place] [address] 02-22-2023 10:55-0400 Body weight 79.[address] Moiz Elise Work Phone: [phone] [place] [address] 02-22-2023 10:55-0400 Diastolic blood pressure 68 mm[Hg] Dr. Moiz Elise Work Phone: [facility] 02-22-2023 10:55-0400 Heart rate 48 /min Dr. Moiz Elise Work Phone: [facility] 02-22-2023 10:55-0400 Respiratory rate 16 /min Dr. Moiz Elise Work Phone: [facility] 02-22-2023 10:55-0400 SaO2% (BldA) [Mass fraction] 95 % Dr. Moiz Elise Work Phone: [facility] 02-22-2023 10:55-0400 Systolic blood pressure 137 mm[Hg] Dr. Moiz Elise Work Phone: [facility] 08-25-2022 14:20-0500 Body height 172.[address] Moiz Elise Work Phone: [facility] 08-25-2022 14:20-0500 Body mass index (BMI) [Ratio] 27.2 kg/m2 Dr. Moiz Elise Work Phone: [facility] 08-25-2022 14:20-0500 Body weight 81.[address] Moiz Elise Work Phone: [facility] 08-25-2022 14:20-0500 Diastolic blood pressure 68 mm[Hg] Dr. Moiz Elise Work Phone: [facility] 08-25-2022 14:20-0500 Heart rate 55 /min Dr. Moiz Elise Work Phone: [facility] 08-25-2022 14:20-0500 Respiratory rate 16 /min Dr. Moiz Elise Work Phone: [facility] 08-25-2022 14:20-0500 Systolic blood pressure 127 mm[Hg] Dr. Moiz Elise Work Phone: [facility] 02-09-2022 13:07-0400 Body height 172.[address] Moiz Elise Work Phone: [facility] Work Phone: 08-09-2021 08:42-0500 Body mass index (BMI) [Ratio] 28.1 kg/m2 Dr. Moiz Elise Work Phone: [facility] Work Phone: 08-09-2021 08:42-0500 Body weight 83.[address] Moiz Elise Work Phone: [facility] Work Phone: 08-09-2021 08:42-0500 Diastolic blood pressure 72 mm[Hg] Dr. Moiz Elise Work Phone: [facility] Work Phone: 08-09-2021 08:42-0500 Heart rate 53 /min Dr. Moiz Elise Work Phone: [facility] Work Phone: 08-09-2021 08:42-0500 Respiratory rate 18 /min Dr. Moiz Elise Work Phone: [facility] Work Phone: 08-09-2021 08:42-0500 SaO2% (BldA) [Mass fraction] 97 % Dr. Moiz Elise Work Phone: [facility] Work Phone: 08-09-2021 08:42-0500 Systolic blood pressure 146 mm[Hg] Dr. Moiz Elise Work Phone: [facility] Work Phone: 08-09-2021 07:42-0500 Body height 172.[address] Moiz Elise Work Phone: [facility] Work Phone: 08-09-2021 07:42-0500 Body weight 83.[address] Moiz Elise Work Phone: [facility] Work Phone: 08-09-2021 07:42-0500 Diastolic blood pressure 72 mm[Hg] Dr. Moiz Elise Work Phone: [facility] Work Phone: 08-09-2021 07:42-0500 Heart rate 57 /min Dr. Moiz Elise Work Phone: [facility] Work Phone: 08-09-2021 07:42-0500 Respiratory rate 18 /min Dr. Moiz Elise Work Phone: [facility] Work Phone: 08-09-2021 07:42-0500 SaO2% (BldA) [Mass fraction] 99 % Dr. Moiz Elise Work Phone: [facility] Work Phone: 08-09-2021 07:42-0500 Systolic blood pressure 154 mm[Hg] Dr. Moiz Elise Work Phone: [facility] Work Phone: 12-28-2020 12:30-0400 Body mass index (BMI) [Ratio] 26.9 kg/m2 Dr. Moiz Elise Work Phone: [facility] Work Phone: 03-22-2017 14:51-0400 BMI (Body Mass Index) 27.05 kg/m2 [facility] Work Phone: 03-22-2017 14:51-0400 BP Diastolic 60 mm[Hg] [facility] Work Phone: 03-22-2017 14:51-0400 BP Systolic 100 mm[Hg] [facility] Work Phone: 03-22-2017 14:51-0400 Height 175.26 cm [facility] Work Phone: 03-22-2017 14:51-0400 Pulse (Heart Rate) 52 /min Chantalle Shamar [facility] Work Phone: 03-22-2017 14:51-0400 Respiratory Rate 20 /min [facility] Work Phone: 03-22-2017 14:51-0400 Weight 83.1 kg Rosy Ibanez [facility] Work Phone: 12-19-2016 08:29-0400 Heart rate 65 /min [facility] Work Phone: 12-19-2016 08:22-0400 BMI (Body Mass Index) 26.58 kg/m2 [facility] Work Phone: 12-19-2016 08:22-0400 Body weight 81.65 kg Alie Chauhan [facility] Work Phone: 12-19-2016 08:22-0400 BP Diastolic 50 mm[Hg] [facility] Work Phone: 12-19-2016 08:22-0400 BP Systolic 100 mm[Hg] [facility] Work Phone: 12-19-2016 08:22-0400 Height 175.26 cm [facility] Work Phone: 12-19-2016 08:22-0400 Pulse (Heart Rate) 65 /min [facility] Work Phone: 12-19-2016 08:22-0400 Respiratory Rate 20 /min [facility] Work Phone: 12-19-2016 08:22-0400 Weight 81.65 kg [facility] Work Phone: 08-15-2016 09:11-0500 BMI (Body Mass Index) 26.73 kg/m2 Unique Zamorano RN [facility] Work Phone: 08-15-2016 09:11-0500 BP Diastolic 60 mm[Hg] Unique Zamorano RN [facility] Work Phone: 08-15-2016 09:11-0500 BP Systolic 130 mm[Hg] Unique Zamorano RN [facility] Work Phone: 08-15-2016 09:11-0500 BSA (Body Surface Area) 1.98 m2 Unique Zamorano RN [facility] Work Phone: 08-15-2016 09:11-0500 Pulse (Heart Rate) 68 /min Unique Zamorano RN [facility] Work Phone: 08-15-2016 09:11-0500 Respiratory Rate 20 /min Unique Zamorano RN [facility] Work Phone: 08-15-2016 09:11-0500 Weight 82.1 kg Unique Zamorano RN [facility] Work Phone: 12-18-2013 15:19-0400 Height 175.26 cm Unique Zamorano RN [facility] Work Phone: 10-02-2012 11:38-0500 Heart rate 443 ms Alie Chauhan [facility] Work Phone: Encounters Encounter Date Encounter Type Care Provider Facility Start: 11-14-2024 End: 11-14-2024 Patient encounter procedure Kylah Dimas DDS Work Phone: Dentistry Comment on above: Sleep related bruxis m (Primary Dx); TMJ crepitus; Attrition, teeth excessive; Myofascial pain Start: 11-14-2024 End: 11-14-2024 ambulatory KYLAH DIMAS Facility:[facility] Start: 09-10-2024 End: 09-10-2024 ambulatory Moiz Elise Facility:[facility] Start: 09-05-2024 End: 09-05-2024 ambulatory Moiz Elise Facility:[facility] Start: 07-07-2024 ambulatory Moiz Elise Facilit y:[facility] Start: 07-07-2024 End: 07-07-2024 ambulatory Edd Berman Facility:[facility] Start: 06-25-2024 End: 06-25-2024 Telephone encounter Kylah Dimas DDS Work Phone: Dentistry Comment on above: Appointment Start: 06-13-2024 End: 06-13-2024 ambulatory Edd Berman Facility:[facility] Start: 06-11-2024 End: 06-11-2024 ambulatory ANNETTA KRAUSE Facility:[facility] Start: 06-11-2024 End: 06-11-2024 Patient encounter procedure Annetta Krause MD Work Phone: Urology Comment on above: Foreign body in blad nixon, sequela (Primary Dx); Screening for genitourinary condition; Postprocedural male urethral stricture; BPH with obstruction/lower urinary tract symptoms; Urinary frequency; Weak urinary stream; Intermittent urinary stream Start: 05-14-2024 End: 05-14-2024 ambulatory Moiz Elise Facility:[facility] Start: 01-21-2024 End: 01-21-2024 ambulatory Moiz Elise Facility:[facility] Start: 11-16-2023 End: 11-16-[address] Moiz Elise Work Phone: [facility] Work Phone: Start: 11-16-2023 End: 11-16-[address] Moiz Elise Work Phone: [facility] Work Phone: Start: 10-11-2023 End: 10-11-2023 Emergency department patient visit Dr. Moiz Elise Work Phone: [facility] Work Phone: Start: 10-09-2023 End: 10-09-[address] Moiz Elise Work Phone: [facility] Work Phone: Start: 10-09-2023 End: 10-09-[address] Moiz Elise Work Phone: [facility] Work Phone: Start: 10-09-2023 End: 10-09-2023 ambulatory Moiz Elise Facility:[facility] Start: 10-04-[address] Moiz Elise Work Phone: [facility] Work Phone: Start: 09-03-[address] Moiz Elise Work Phone: [facility] Work Phone: Start: 08-31-2023 End: 08-31-[address] Moiz Elise Work Phone: [facility] Work Phone: Start: 06-18-2023 Non-patient / Non-visit Dr. Annabella Elise Work Phone: [facility] Work Phone: Start: 06-06-2023 Non-patient / Non-visit Dr. Annabella Elise Work Phone: [facility] Start: 06-06-2023 End: 06-06-[address] Moiz Elise Work Phone: [facility] Work Phone: Start: 06-06-2023 End: 06-06-[address] Moiz Elise Work Phone: [facility] Work Phone: Start: 05-14-2023 End: 05-14-[address] Moiz Elise Work Phone: [facility] Work Phone: Start: 05-14-2023 End: 05-14-[address] Moiz Elise Work Phone: [facility]Neurology Work Phone: Start: 05-08-2023 End: 05-08-[address] Moiz Elise Work Phone: [facility] Work Phone: Start: 05-08-2023 End: 05-08-[address] [facility]iz [facility] Start: 05-03-2023 End: 05-03-[address] Moiz Elise Work Phone: [facility] Work Phone: Start: 04-06-[address] Moiz El[facility]: Start: 02-22-2023 End: 02-22-[address] Moiz Elise Work Phone: [facility] Work Phone: Start: 01-19-2023 End: 01-19-2023 ambulatory [facility] Work Phone: Start: 01-19-2023 End: 01-19-2023 [facility] Start: 10-16-2022 End: 10-16-[address] Moiz Elise Work Phone: [facility] Work Phone: Start: 10-16-2022 End: 10-16-[address] Moiz Elise [facility] Start: 08-25-2022 End: 08-25-[address] Moiz Elise Work Phone: [facility] Start: 07-14-2022 End: 07-14-2022 ambulatory [facility] Work Phone: Start: 07-14-2022 End: 07-14-2022 [facility] Start: 03-29-2022 End: 03-29-[address] Moiz Elise Work Phone: [facility] Work Phone: Start: 03-29-2022 End: 03-29-[address] Moiz Elise Work Phone: [facility] Start: 03-16-2022 Non-patient / Non-visit Dr. Annabella Elise Work Phone: [facility] Start: 03-16-2022 End: 03-16-[address] Moiz Elise Work Phone: [facility] Start: 03-14-2022 End: 03-14-[address] Moiz Elise Work Phone: [facility] Work Phone: Start: 03-14-2022 End: 03-14-[address] Moiz Elise Work Phone: [facility] Start: 02-09-2022 End: 02-09-[address] Moiz Elise Work Phone: [facility] Start: 12-05-2021 End: 12-05-2021 [facility] Start: 11-23-2021 End: 11-23-[address] Moiz Elise Work Phone: [facility]Laboratory, Specimen Start: 11-09-2021 End: 11-09-[address] Moiz Elise Work Phone: [facility]-Radiology, [facility] Start: 09-29-2021 End: 09-29-[address] Moiz Elise Work Phone: [facility], Specimen Start: 08-09-2021 End: 08-09-[address] Moiz Elise Work Phone: [facility] Start: 12-28-[address] Rose Elise Work Phone: [facility] Procedures Date Procedure Procedure Detail Performing Clinician Start: 11-14-2024 DETAILED AND EXTENSI VE ORAL EVALUATION - PROBLEM FOCUSED, BY REPORT Kylah Dimas DDS Work Phone: Start: 06-11-2024 Urinalysis microscop ic only Annetta Kruase MD Work Phone: Start: 06-11-2024 Urnls dip stick/tabl et rgnt auto w/o microscopy Annetta Krause MD Work Phone: Start: 10-11-2023 Streptococcus pyogen es rRNA assay Dr. Moiz Elise Work Phone: Start: 10-11-2023 CT of soft tissues o f neck with contrast Dr. Moiz Elise Work Phone: Start: 10-09-2023 Plain chest X-ray Dr. Rose Elise Work Phone: Start: 12-05-2021 MRI of lumbar spine Start: 11-23-[address] Moiz Elise Work Phone: Start: 11-09-2021 X-ray of lumbar spin e, two or three views Dr. Moiz Elise Work Phone: Start: 09-29-2021 Bacteria identified in Urine by Culture Dr. Moiz Elise Work Phone: Start: 09-29-[address] 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 Edd Berman MD Start: 03-22-2017 End: 03-22-2017 Follow [...] Start: 12-19-2016 End: 12-27-2016 Electrocardiogram, complete Edd Berman MD Start: 12-19-2016 End: 12-19-2016 Follow Up [...] months Elizabeth Pisano Start: 02-15-2016 End: 02-15-2016 MMElizabeth Berman MD Start: 02-03-2016 End: 02-11-2016 *Hepatic Function Panel Elizabeth Pisano Start: 02-03-2016 End: 02-11-2016 Lipid panel [AGGREGATE] Elizabeth Pisano Start: 08-10-2015 End: 08-10-2015 KEM Berman MD Start: 08-10-2015 End: 08-10-2015 Follow Up Appt 6 months Elizabeth Pisano Start: 07-28-2015 End: 08-05-2015 *Hepatic Function Panel Elizabeth Pisano Start: 07-28-2015 End: 08-05-2015 Lipid panel [AGGREGATE] Elizabeth Pisano Start: 01-22-2015 End: 01-26-2015 *Hepatic Function Panel Elizabeth Pisano Start: 01-22-2015 End: 01-22-2015 STORE RECEIVERDanielito Berman MD Start: 01-22-2015 End: 01-23-2015 Documentation of current medications Edd Berman MD Start: 01-22-2015 End: 01-22-2015 Follow Up Appt 6 months Elizabeth Pisano Start: 01-22-2015 End: 01-26-2015 Lipid panel [AGGREGATE] Elizabeth Pisano Start: 04-29-2014 End: 01-26-2015 *Hepatic Function Panel Elizabeth Pisano Start: 04-29-2014 End: 01-26-2015 Lipid panel [AGGREGATE] Elizabeth Pisano Start: 04-23-2014 End: 04-23-2014 STORE RECEIVERDanielito Berman MD Start: 04-23-2014 End: 04-23-2014 Follow Up Appt 6 months Elizabeth Pisano Start: 04-23-2014 End: 06-01-2014 Nuclear stress test -exercise Edd Berman MD Start: 12-18-2013 End: 04-06-2014 *Hepatic Function Panel Elizabeth Pisano Start: 12-18-2013 End: 12-18-2013 KEM Berman MD Start: 12-18-2013 End: 12-18-2013 Follow Up Appt 4 months Elizabeth Pisano Start: 12-18-2013 End: 04-06-2014 Lipid panel [AGGREGATE] Elizabeth Pisano Start: 12-05-2013 History of placement of stent for coronary artery disease History of coronary artery stent placement Dr. Moiz Elise Work Phone: Start: 11-20-2013 End: 04-06-2014 *BMP Cezar Franco MD Work Phone: Start: 11-20-2013 End: 04-06-2014 MAXINEN Cezar Franco MD Work Phone: Start: 11-10-2013 [...] Edd Berman MD Start: 11-04-2013 End: 11-04-2013 KEM Berman MD Start: 11-04-2013 End: 11-04-2013 Electrocardiogram, complete Edd Berman MD Start: 11-04-2013 End: 11-04-2013 Follow Up Appt 6 months Elizabeth Pisano Start: 11-04-2013 End: 11-20-2013 Left Heart Cath Edd Berman MD Start: 11-04-2013 End: 11-06-2013 Lipid panel [AGGREGATE] Elizabeth Pisano Start: 12-28-2012 End: 02-07-2013 *Hepatic Function Panel Elizabeth Pisano Start: 12-28-2012 End: 02-07-2013 Coagulation factor induced.INR assay in platelet poor plasma Edd eBrman MD Start: 12-28-2012 End: 02-07-2013 Lipid 1996 panel - Serum or Plasma Edd Berman MD Start: 10-02-2012 End: 10-02-2012 KEM Berman MD Start: 10-02-2012 End: 10-02-2012 Follow Up Appt Other Edd Berman MD Start: 10-02-2012 End: 10-02-2012 Lipid panel [AGGREGATE] Elizabeth Pisano Start: 08-01-2011 End: 01-17-2012 Electrocardiogram, complete Edd Berman MD Start: 08-01-2011 End: 08-01-2011 Follow Up Appt 1 year Edd Berman MD Urine culture Dr. Moiz monroe Work Phone: Plan of Treatment Date Care Activity Detail Author Start: 09-21-2030 Urine microalbumin profile DTaP,Tdap,Td Vaccine (3 - Td or Tdap) [facility] Start: 06-17-2025 End: 06-17-2025 Patient encounter procedure 06/17/2025 2:30 PM EST Office Visit Urology [address] [place] [address] Trino Rodriguez PA-C [address] [place], [place] [id number] Follow Up Urology Comment on above: Follow Up Start: 11-14-2024 End: 11-14-2024 Patient encounter procedure 11/14/2024 1:00 PM EDT Office Visit Dentistry [address] [address] Kylah Dimas, VINAY [address] [place], [place] [id number] TMJ Consult no NG - pano [facility] Comment on above: TMJ Consult no NG - pano 01/15/24 in [facility] Start: 10-13-2024 Covid-19 Vaccine ( season) Covid-19 Vaccine () [facility] Start: 01-01-2025 Advance Directive Discussion Advance Directive Discussion [facility] Start: 10-11-2023 [place] Start: 07-30-2023 Advance Directive Discussion Advance Directive Discussion [facility] Start: 11-03-2019 Diabetes Screening Diabetes Screenin g [facility] Start: 10-09-2018 Hepatitis B surface antibody level LDL Cholesterol [facility] Start: 09-20-2017 End: 09-20-2017 Appointment Appointment [facility] Work Phone: Start: 08-23-2017 End: 02-28-2017 *Hepatic Function Panel *Hepatic Function Panel [facility] Work Phone: Start: 08-23-2017 End: 02-28-2017 Lipid panel [AGGREGATE] *Lipid Profile CC PCP [facility] Work Phone: Start: 03-22-2017 End: 03-22-2017 Appointment Appointment [facility] Work Phone: Start: 03-22-2017 End: 03-22-2017 Appointment Appointment [facility] Work Phone: Start: 03-22-2017 End: 03-22-2017 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 [facility] Work Phone: Start: 03-22-2017 End: 03-22-2017 Follow Up Appt 6 months Follow Up Appt 6 months [facility] Work Phone: Start: 03-02-2017 End: 03-02-2017 Appointment Appointment [facility] Work Phone: Start: 02-20-2017 End: 02-20-2017 Appointment Appointment [facility] Work Phone: Start: 02-20-2017 End: 02-20-2017 Follow Up BP Check Follow Up BP Check [facility] Work Phone: Start: 02-15-2017 End: 02-20-2017 *Hepatic Function Panel *Hepatic Function Panel [facility] Work Phone: Start: 02-15-2017 End: 02-20-2017 Lipid panel [AGGREGATE] *Lipid Profile CC PCP [facility] Work Phone: Start: 12-19-2016 End: 12-19-2016 Appointment Appointment [facility] Work Phone: Start: 12-19-2016 End: 12-19-2016 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 [facility] Work Phone: Start: 08-15-2016 End: 08-15-2016 Follow Up Appt 6 months Follow Up Appt 6 months [facility] Work Phone: Start: 08-15-2016 End: 08-18-2016 Lipid panel [AGGREGATE] *Lipid Profile CC PCP [facility] Work Phone: Start: 08-15-2016 End: 08-18-2016 Thyroid stimulating hormone (TSH) *TSH [facility] Work Phone: Start: 08-11-2016 End: 08-24-2016 *Hepatic Function Panel *Hepatic Function Panel [facility] Work Phone: Start: 08-11-2016 End: 08-24-2016 Lipid panel [AGGREGATE] *Lipid Profile CC PCP [facility] Work Phone: Start: 02-15-2016 End: 02-15-2016 Follow Up Appt 6 months Follow Up Appt 6 months [facility] Work Phone: Start: 02-15-2016 End: 02-15-2016 MMM MMM [facility] Work Phone: Start: 02-03-2016 End: 02-11-2016 *Hepatic Function Panel *Hepatic Function Panel [facility] Work Phone: Start: 02-03-2016 End: 02-11-2016 Lipid panel [AGGREGATE] *Lipid Profile CC PCP [facility] Work Phone: Start: 08-10-2015 End: 08-10-2015 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 [facility] Work Phone: Start: 08-10-2015 End: 08-10-2015 Follow Up Appt 6 months Follow Up Appt 6 months [facility] Work Phone: Start: 07-28-2015 End: 08-05-2015 *Hepatic Function Panel *Hepatic Function Panel [facility] Work Phone: Start: 07-28-2015 End: 08-05-2015 Lipid panel [AGGREGATE] *Lipid Profile CC PCP [facility] Work Phone: Start: 01-22-2015 End: 01-26-2015 *Hepatic Function Panel *Hepatic Function Panel [facility] Work Phone: Start: 01-22-2015 End: 01-22-2015 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 [facility] Work Phone: Start: 01-22-2015 End: 01-22-2015 Follow Up Appt 6 months Follow Up Appt 6 months [facility] Work Phone: Start: 01-22-2015 End: 01-26-2015 Lipid panel [AGGREGATE] *Lipid Profile CC PCP [facility] Work Phone: Start: 04-29-2014 End: 01-26-2015 *Hepatic Function Panel *Hepatic Function Panel [facility] Work Phone: Start: 04-29-2014 End: 01-26-2015 Lipid panel [AGGREGATE] *Lipid Profile CC PCP [facility] Work Phone: Start: 04-23-2014 End: 04-23-2014 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 [facility] Work Phone: Start: 04-23-2014 End: 04-23-2014 Follow Up Appt 6 months Follow Up Appt 6 months [facility] Work Phone: Start: 04-23-2014 End: 04-23-2014 Nuclear stress test -exercise Nuclear stress test -exercise [facility] Work Phone: Start: 12-18-2013 End: 04-06-2014 *Hepatic Function Panel *Hepatic Function Panel [facility] Work Phone: Start: 12-18-2013 End: 12-18-2013 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 [facility] Work Phone: Start: 12-18-2013 End: 12-18-2013 Follow Up Appt 4 months Follow Up Appt 4 months [facility] Work Phone: Start: 12-18-2013 End: 04-06-2014 Lipid panel [AGGREGATE] *Lipid Profile CC PCP [facility] Work Phone: Start: 11-20-2013 End: 04-06-2014 *BMP *BMP [facility] Work Phone: Start: 11-20-2013 End: 04-06-2014 DJN DJN [facility] Work Phone: Start: 11-10-2013 End: 11-10-2013 Nuclear stress test -exercise Nuclear stress test -exercise [facility] Work Phone: Start: 11-04-2013 End: 11-04-2013 *BMP *BMP [facility] Work Phone: Start: 11-04-2013 End: 11-06-2013 *Hepatic Function Panel *Hepatic Function Panel [facility] Work Phone: Start: 11-04-2013 End: 11-04-2013 CBC W Auto Differential panel - Blood *CBC without Diff [facility] Work Phone: Start: 11-04-2013 End: 11-07-2013 Chest x-ray X-Ray, Chest, PA & Lateral [facility] Work Phone: Start: 11-04-2013 End: 11-04-2013 Coagulation factor induced.INR assay in platelet poor plasma *PT/INR [facility] Work Phone: Start: 11-04-2013 End: 11-04-2013 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 [facility] Work Phone: Start: 11-04-2013 End: 11-04-2013 Electrocardiogram, complete EKG (In office) [facility] Work Phone: Start: 11-04-2013 End: 11-04-2013 Follow Up Appt 6 months Follow Up Appt 6 months [facility] Work Phone: Start: 11-04-2013 End: 11-04-2013 Left Heart Cath Left Heart Cath [facility] Work Phone: Start: 11-04-2013 End: 11-06-2013 Lipid panel [AGGREGATE] *Lipid Profile CC PCP [facility] Work Phone: Start: 12-28-2012 End: 02-07-2013 *Hepatic Function Panel *Hepatic Function Panel [facility] Work Phone: Start: 12-28-2012 End: 02-07-2013 Lipid panel [AGGREGATE] *Lipid Profile [facility] Work Phone: Start: 10-02-2012 End: 10-02-2012 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 [facility] Work Phone: Start: 10-02-2012 End: 10-02-2012 Electrocardiogram, complete EKG (In office) [facility] Work Phone: Start: 10-02-2012 End: 10-02-2012 Follow Up Appt Other Follow Up Appt Other [facility] Work Phone: Start: 08-01-2011 End: 01-17-2012 Electrocardiogram, complete EKG (In office) [facility] Work Phone: Start: 08-01-2011 End: 08-01-2011 Follow Up Appt 1 year Follow Up Appt 1 year [facility] Work Phone: Start: 1963 Annual PCP Team Mannequin Decorator carine Disease Visit Annual PCP Team Chronic Disease Visit [facility] Start: 1963 Anxiety Screening Anxiety Screening [facility] Start: 1963 BP Controlled (<130/80) BP Controlle d (<130/80) [facility] Start: 1963 Depression Screening Depression Scre ening [facility] 24 Hour ECG [facility] Max OCCLUSAL GUARD H VANDANA APPLIANCE, FULL ARCH Max OCCLUSAL GUARD HARD APPLIANCE, FULL ARCH Dental Routine 1 Occurrences starting 11/14/2024 [facility] Work Phone: Comment on above: 1 Occurrences starti ng 11/14/2024 PANORAMIC RADIOGRAPH IC IMAGE PANORAMIC RADIOGRAPHIC IMAGE [facility] Routine 1 Occurrences starting 11/14/2024 [facility] Comment on above: 1 Occurrences starti ng 11/14/2024 Patient Education [facility] Work Phone: Patient referral [facility] Work Phone: RE-EVALUATION - LIMITED, PROBLEM FOCUSED (ESTABLISHED PATIENT; NOT POST-OPERATIVE VISIT) RE-EVALUATION - LIMITED, PROBLEM FOCUSED (ESTABLISHED PATIENT; NOT POST-OPERATIVE VISIT) Dental Routine 1 Occurrences starting 11/14/2024 [facility] Comment on above: 1 Occurrences starti ng 11/14/2024 SPLINT FOLLOW UP SPLINT FOLLOW U P Dental Routine 1 Occurrences starting 11/14/2024 [facility] Comment on above: 1 Occurrences starti ng 11/14/2024 UNSPECIFIED ADJUNCTI VE PROCEDURE, BY REPORT UNSPECIFIED ADJUNCTIVE PROCEDURE, BY REPORT Dental Routine 1 Occurrences starting 11/14/2024 [facility] Comment on above: 1 Occurrences starti ng 11/14/2024 Immunizations Immunization Date Immunization Notes Care Provider Fa ananya 10-13-2020 Donovan (Moderna) Dr. Moiz murphy Work Phone: [facility] 09-15-2020 Donovan (Moderna) Dr. Moiz murphy Work Phone: [facility] 05-08-2017 influenza, high dose seasonal, preservative-free Kylah Dimas DDS Work Phone: [facility] 06-16-2016 influenza, high dose seasonal, preservative-free Kylah Dimas DDS Work Phone: [facility] 04-11-2016 tetanus toxoid, redu frank diphtheria toxoid, and acellular pertussis vaccine, adsorbed Kylah Dimas DDS Work Phone: [facility] 04-11-2016 typhoid vaccine, parenteral, other than acetone-killed, dried Kylah Dimas DDS Work Phone: [facility] 10-25-2015 pneumococcal conjuga te vaccine, 13 valent Kylah Dimas DDS Work Phone: [facility] 06-18-2015 influenza, high dose seasonal, preservative-free Kylah Dimas DDS Work Phone: [facility] 05-07-2014 influenza, seasonal, injectable Kylah Dimas DDS Work Phone: [facility] Work Phone: 07-08-2012 influenza virus vacc ine, unspecified formulation Kylah Dimas DDS Work Phone: [facility] Work Phone: 02-14-2012 pneumococcal polysaccharide vaccine, 23 valent Kylah Dimas DDS Work Phone: [facility] Work Phone: 06-28-2011 influenza virus vacc ine, unspecified formulation Kylah Dimas DDS Work Phone: [facility] 02-18-2010 hepatitis A and hepatitis B vaccine Kylah Dimas DDS Work Phone: [facility] 08-06-2009 hepatitis A and hepatitis B vaccine Kylah Dimas DDS Work Phone: [facility] 07-07-2009 hepatitis A and hepatitis B vaccine Kylah Colemann DDS Work Phone: [facility] 07-07-2009 typhoid vaccine, unspecified formulation Kylah Dimas DDS Work Phone: [facility] 05-20-2009 influenza virus vacc ine, unspecified formulation Kylah Dimas DDS Work Phone: [facility] Work Phone: 05-10-2009 zoster vaccine, live Kylah hagan DDS Work Phone: [facility] 06-05-2008 influenza virus vacc ine, unspecified formulation Kylah Dimas DDS Work Phone: [facility] 11-28-2007 tetanus and diphther ia toxoids, adsorbed, preservative free, for adult use (2 Lf of tetanus toxoid and 2 Lf of diphtheria toxoid) Kylah Dimas DDS Work Phone: [facility] 07-04-2005 influenza virus vacc ine, unspecified formulation Kylah Dimas DDS Work Phone: [facility] Work Phone: 12-28-1986 Meningococcal, MCV4, unspecified conjugate formulation(groups A, C, Y and W-135) Kylah Dimas DDS Work Phone: [facility] 12-28-1986 tetanus and diphther ia toxoids, not adsorbed, for adult use Kylah Dimas DDS Work Phone: [facility] Work Phone: 12-28-1986 trivalent poliovirus vaccine, live, oral Kylah Dimas DDS Work Phone: [facility] 12-28-1986 typhoid vaccine, unspecified formulation Kylah Dimas DDS Work Phone: [facility] Payers Date Payer Category Payer Self-pay [id number] 2015 Private Health Insurance [facility] SUPPLEMENT [id number] 2015-Present [phone] [address] [place] [address] Indemnity [id number] 2015 Unknown [id number] 2010 Medicare MEDICARE MEDICAR E A AND B [id number] 2010-Present [phone] [place] [address] Medicare [id number] 2010 Medicare [id number] Unknown [id number] Unknown [id number] Unknown [id number] Unknown [id number] Unknown [id number] Unknown [id number] Unknown [id number] Unknown [id number] Unknown [id number] Unknown [id number] Social History Date Type Detail Facility Start: 08-09-2021 End: 10-11-2023 Tobacco smoking status NHIS Unknown if ever smoked [facility] Start: 10-12-2020 None [facility] Start: 10-12-2020 Spouse/ Signif icant Other [facility] Start: 10-12-2020 Non-smoker [facility] Start: 1945 Sex Assigned At Male [facility] Start: 01-16-2011 Tobacco smoking stat us NHIS Never smoked tobacco [facility] Start: 01-16-2011 Tobacco use and exposure Smokeless tobacco non-user [facility] Start: 03-15-2022 Alcoholic beverage intake Current drinker of alcohol (finding) [facility] Start: 03-15-2022 End: 06-11-2024 History of Social function [facility] Start: 03-15-2022 End: 06-11-2024 Tobacco use panel [facility] Work Phone: National Score (1-10 0), lower number is lower risk 66 [facility] Start: 04-12-2020 Gender identity Identifies as male gender (finding) [facility] Start: 04-18-2020 Sexual orientation Heterosexual (nishant chandler) [facility] Medical Equipment Procedure Code Equipment Code Equipment Origin al Text Equipment Identifier Dates [employer] FDA Start: 07-12-2018 Urolift FDA Start: 07-12-2018 U[employer]ift FDA Start: 07-12-2018 Urolift FDA Start: 07-12-2018 Urolift FDA Start: 07-12-2018 Urolift FDA Start: 07-12-2018 Urolift FDA Start: 07-12-2018 Urolift FDA Start: 07-12-2018 Urolift FDA Start: 07-12-2018 Urolift FDA Start: 07-12-2018 Urolift FDA Start: 07-12-2018 Urolift FDA Start: 07-12-2018 U[employer]ift FDA Start: 07-12-2018 Functional Status Date Assessment Result Facility 03-07-2015 Are you deaf, or do you have serious difficulty hearing No 03/07/2015 11:50 AM Ariadne Villegas MA No [facility] 03-07-2015 Are you blind, or do you have serious difficulty seeing, even when wearing glasses No 03/07/2015 11:50 AM Ariadne Villegas MA No [facility] 03-07-2015 Do you have serious difficulty walking or climbing stairs No 03/07/2015 11:50 AM Ariadne Villegas MA No [facility] 03-07-2015 Do you have difficul ty dressing or bathing No 03/07/2015 11:50 AM Ariadne Villegas MA No [facility] 03-07-2015 Because of a physica l, mental, or emotional condition, do you have difficulty doing errands alone such as visiting a physician's office or shopping No 03/07/2015 11:50 AM EDT Ariadne Vernon MA No [facility] Mental Status Date Assessment Result Facility 03-07-2015 Because of a physica l, mental, or emotional condition, do you have serious difficulty concentrating, remembering, or making decisions No 03/07/2015 11:50 AM EDT Ariadne Vernon MA No [facility] [facility] Clinical Notes 12-05-2013 to 11-14-2024 Kylah Dimas DDS - 11/14/2024 12:28 PM EDTTelephone Encounter - Sue Nava - 06/25/2024 1:24 PM ESTTelephone Encounter - Sue Nava - 06/25/2024 1:24 PM EST Note Date & Type Note Facility 11-14-2024 Note HNO ID: [id number] Author: KYLAH DIMAS DDS Service: ? Author Type: Dentist Type: Progress Notes Filed: 11/14/2024 15:03 Note Text: [facility], Oral Surgery, AND Maxillofacial Prosthetics Date: November 14, 2024 Name: Messi Villa Messi Villa is a 79 year old year old referred by self. . Messi Villa appears to be alert, cooperative, and in no acute distress. He is accompanied to this appointment by his . CHIEF COMPLAINT: Patient presents for a diagnosis and information regarding his noted left TMJ crepitus. He has noticed crepitus L>R for several years but in late 2023 he had a flare up of pain during mastication on the left side so decided to seek a TMD consultation. Patient reports no pain today and can masticate a normal diet without pain. He does experience slight discomfort (1/10) in the left preauricular area with wide opening and incising a large bolus of food currently. Patient denies a previous history of TMJ clicking/popping or locking. His hears him snore, may stop breathing but no gasping for breath. Patient denies excessive sleepiness during the day and can carry out a normal day's activity. We discussed having a conversation with his PCP to discuss a preliminary HSS to see if he does have RANDELL. Review of Symptoms: Headache: Denies Migraines: Denies Dizziness: occasionally in the morning- we discuss avoidance of stomach sleeping and effects on the neck muscles related to postural dizziness. Tinnitus: Very faint in the background- denies HL Otalgia: Denies TMJ clicking: Denies TMJ locking: Denies Painful mastication: Denies Dysphagia: Denies Cervicalgia: Denies Daytime clenching: Denies Grinding: unclear RANDELL: see above PAST TREATMENT: Consultations: Dr. Dander Martinez - general dentist Physical therapy: B/L following rotator cuff surgery 2020 and 2022 Imaging: Very first panorex dated 01-15-24 ( no previous panorex imaging to review for impacted #32 ) Orthotics: None Orthodontics: None Pharmacotherapy: None TMJ surgery: None HISTORY OF TRAUMA: Fell: shoulder injury 4 years ago Fell: shoulder injury 2022 . PAST SURGICAL HISTORY Procedure Laterality Date COLONOSCOPY 02/21/2011 CORONARY STENT INITIAL LCx OM2, SHERYL EXCISION PILONIDAL CYST/SINUS SIMPLE TONSILLECTOMY PRIMARY/SECONDARY Tonsillectomy PAST MEDICAL HISTORY Diagnosis Date BPH (benign prostatic hypertrophy) with urinary obstruction 06/21/2005 Dr. Jenny Santiago. CAD (coronary artery disease) 11/25/2013 Diverticulosis of colon (without mention of hemorrhage) Family history of pancreatic cancer 01/07/2010 Herpes zoster 09/26/2006 Hypertrophy of prostate with urinary obstruction and other lower urinary tract symptoms (LUTS) 06/21/2005 Internal hemorrhoids without mention of complication RT BUNDLE BRANCH BLOCK 06/21/2005 Sebaceous cyst 02/20/2013 Right occiput UNILAT INGUINAL HERNIA 06/21/2005 Unspecified essential hypertension Vasovagal syncopes 2013 post micturition Current Outpatient Medications Medication Sig vitamin D3-vitamin K2 1,250-200 mcg cap Take by mouth. amLODIPine (NORVASC) 10 mg tablet Take 10 mg by mouth once daily. hydroCHLOROthiazide (HYDRODIURIL, ESIDRIX) 25 mg tablet Take 25 mg by mouth once daily. levothyroxine 75 mcg cap Take 75 mcg by mouth daily before breakfast. codeine-guaiFENesin (ROBITUSSIN AC) 10-100 mg/5 mL syrup Take 5-10 mL by mouth four times daily as needed for Cough. May cause drowsiness. benzonatate (TESSALON PERLE) 100 mg capsule Take 1-2 capsules by mouth three times daily as needed. dutasteride (AVODART) 0.5 mg capsule Take 1 capsule by mouth once daily. clopidogrel (PLAVIX) 75 mg tablet Take 1 tablet by mouth once daily. (Patient not taking: Reported on 06/11/2024) atorvastatin (LIPITOR) 10 mg tablet Take 10 mg by mouth once daily. ALTACE 10 MG CAP Take one(1) capsule daily. ASPIRIN 81 MG TAB Take one (1) tablet daily . Current Facility-Administered Medications Medication Dose Route Frequency cephALEXin 500 mg cap(s) (KEFLEX) 500 mg ORAL As Directed cephALEXin 500 mg cap(s) (KEFLEX) 500 mg ORAL As Directed CLINICAL EXAMINATION: Range of Motion: Patient can open to 50 mm. with deviation/deflection to the Left. . Patient can move to the right lateral 12 mm. And to the left lateral 14 mm. Protrusive is 8mm. Auscultation: Right TMJ: Medial pole: Mild crepitus Opening translation: Moderate crepitus Lateral translation: Moderate crepitus Protrusion: Moderate crepitus Left TMJ: Medial pole: Moderate crepitus Opening translation: Course crepitus Lateral translation: Course crepitus Protrusion: Course crepitus Palpation: Right TMJ: Retrodiskal tissues: 0/10 VAS. Lateral Pole: 0/10 VAS Left TMJ: Retrodiskal tissues: 1/10 VAS. Lateral Pole: 0/10 VAS Cervical ROM: Right Tilt: 50% restriction Left Tilt: 40% restriction Right rotat (more content not included)... [facility] 11-14-2024 History of Presen t illness Narrative [facility], Oral Surgery, & Maxillofacial Prosthetics Date: November 14, 2024 Name: Messi Villa Messi Villa is a 79 year old year old referred by self. . Messi Villa appears to be alert, cooperative, and in no acute distress. He is accompanied to this appointment by his . CHIEF COMPLAINT: Patient presents for a diagnosis and information regarding his noted left TMJ crepitus. He has noticed crepitus L>R for several years but in late 2023 he had a flare up of pain during mastication on the left side so decided to seek a TMD consultation. Patient reports no pain today and can masticate a normal diet without pain. He does experience slight discomfort (1/10) in the left preauricular area with wide opening and incising a large bolus of food currently. Patient denies a previous history of TMJ clicking/popping or locking. His hears him snore, may stop breathing but no gasping for breath. Patient denies excessive sleepiness during the day and can carry out a normal day's activity. We discussed having a conversation with his PCP to discuss a preliminary HSS to see if he does have RANDELL. Review of Symptoms: Headache: Denies Migraines: Denies Dizziness: occasionally in the morning- we discuss avoidance of stomach sleeping and effects on the neck muscles related to postural dizziness. Tinnitus: Very faint in the background- denies HL Otalgia: Denies TMJ clicking: Denies TMJ locking: Denies Painful mastication: Denies Dysphagia: Denies Cervicalgia: Denies Daytime clenching: Denies Grinding: unclear RANDELL: see above PAST TREATMENT: Consultations: Dr. Dandre Martinez - general dentist Physical therapy: B/L following rotator cuff surgery 2020 and 2022 Imaging: Very first panorex dated 01-15-24 ( no previous panorex imaging to review for impacted #32 ) Orthotics: None Orthodontics: None Pharmacotherapy: None TMJ surgery: None HISTORY OF TRAUMA: Fell: shoulder injury 4 years ago Fell: shoulder injury 2022 . PAST SURGICAL HISTORY Procedure Laterality Date COLONOSCOPY 02/21/2011 CORONARY STENT INITIAL LCx OM2, SHERYL EXCISION PILONIDAL CYST/SINUS SIMPLE TONSILLECTOMY PRIMARY/SECONDARY <AGE 12 1950s Tonsillectomy PAST MEDICAL HISTORY Diagnosis Date BPH (benign prostatic hypertrophy) with urinary obstruction 06/21/2005 Dr. Jenny Santiago. CAD (coronary artery disease) 11/25/2013 Diverticulosis of colon (without mention of hemorrhage) Family history of pancreatic cancer 01/07/2010 Herpes zoster 09/26/2006 Hypertrophy of prostate with urinary obstruction and other lower urinary tract symptoms (LUTS) 06/21/2005 Internal hemorrhoids without mention of complication RT BUNDLE BRANCH BLOCK 06/21/2005 Sebaceous cyst 02/20/2013 Right occiput UNILAT INGUINAL HERNIA 06/21/2005 Unspecified essential hypertension Vasovagal syncopes 2014 post micturition Current Outpatient Medications Medication Sig vitamin D3-vitamin K2 1,250-200 mcg cap Take by mouth. amLODIPine (NORVASC) 10 mg tablet Take 10 mg by mouth once daily. hydroCHLOROthiazide (HYDRODIURIL, ESIDRIX) 25 mg tablet Take 25 mg by mouth once daily. levothyroxine 75 mcg cap Take 75 mcg by mouth daily before breakfast. codeine-guaiFENesin (ROBITUSSIN AC) 10-100 mg/5 mL syrup Take 5-10 mL by mouth four times daily as needed for Cough. May cause drowsiness. benzonatate (TESSALON PERLE) 100 mg capsule Take 1-2 capsules by mouth three times daily as needed. dutasteride (AVODART) 0.5 mg capsule Take 1 capsule by mouth once daily. clopidogrel (PLAVIX) 75 mg tablet Take 1 tablet by mouth once daily. (Patient not taking: Reported on 06/11/2024) atorvastatin (LIPITOR) 10 mg tablet Take 10 mg by mouth once daily. ALTACE 10 MG CAP Take one(1) capsule daily. ASPIRIN 81 MG TAB Take one (1) tablet daily . Current Facility-Administered Medications Medication Dose Route Frequency cephALEXin 500 mg cap(s) (KEFLEX) 500 mg ORAL As Directed cephALEXin 500 mg cap(s) (KEFLEX) 500 mg ORAL As Directed CLINICAL EXAMINATION: Range of Motion: Patient can open to 50 mm. with deviation/deflection to the Left. . Patient can move to the right lateral 12 mm. And to the left lateral 14 mm. Protrusive is 8mm. Auscultation: Right TMJ: Medial pole: Mild crepitus Opening translation: Moderate crepitus Lateral translation: Moderate crepitus Protrusion: Moderate crepitus Left TMJ: Medial pole: Moderate crepitus Opening translation: Course crepitus Lateral translation: Course crepitus Protrusion: Course crepitus Palpation: Right TMJ: Retrodiskal tissues: 0/10 VAS. Lateral Pole: 0/10 VAS Left TMJ: Retrodiskal tissues: 1/10 VAS. Lateral Pole: 0/10 VAS Cervical ROM: Right Tilt: 50% restriction Left Tilt: 40% restriction Right rotation: 50% restriction Left rotation: 40% restriction Extension: 20% restriction Flexion: 0% restriction Postural Notes: Patient presents with slight forward head/ rounded shoulders. Sleeps on stomach or side. Reviewed proper head support with pillow(s) MUSCULATURE NOTES: The following muscles exhibit a myofascial TrP response to palpation: Left deep and superficial Masseter. DENTITION NOTES: The IOE is WNL's. No soft tissue lesions, no lymphadenopathy. Occipital sebaceous cyst- monitored and checked by PCP Normal tongue and palate movements. Mallampati Grade is 4 Cole Tongue Grade is 2 Normocephalic. No palpable salivary gland masses. CN V and CN VII within normal limits. Patient is a Class I molar relationship with anterior contact in DC end to end except #11- moderate lower anterior wear on #23,24,25,26 Load testing was positive for left masseter pain pain-duplicated area of trp. Centric relation was verified today with the initial contact coincidental with DC. There are working and non-working posterior interferences indicative of nocturnal bruxing. There is Moderate occlusal wear. There is Moderate to severe incisal edge wear of the anterior teeth. RADIOGRAPHIC FINDINGS:Panorex imaging dated 01-15-24 (never had a previous panorex) Right TMJ: normal cortical bone/contours with slightly closed joint space. Left TMJ: normal cortical bone/contours withslighly closed joint space. Periapical radiolucencies: none Abnormal findings: none Tooth #32 vertical impacted third molar- no tingling, numbness, pain involving CN 5. Variation of trabeculation in bilateral right and left mandible. Imaging was reviewed by Dr. Castle, oral surgeon, and he agreed with monitoring findings with periodic panorex imaging. 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 Written and verbal TMD self management practices Recommended: Periodic panorex imaging in 18 months - asymptomatic impacted third molar #32. I have discussed the risks, benefits, complications, and alternatives to proceeding with treatment at this time. We discussed reasonable expectations regarding splint therapy in the setting of parafunctional habits and bilateral TMJ crepitus.The goals and design of dental orthotic were discussed with emphasis on the management of the somatic component to patient's disorder. Kylah Dimas DDS documented in this encounter [facility] 06-25-2024 Telephone encount er Note June 25, 2024 Dear Messi Villa, Thank you for your request. Please call to confirm cancellation request, next availability for reschedule is possibly and not guaranteed NOVEMBER/2024 Please call [phone] Thank you for choosing [facility] for your healthcare. Sincerely, Your Care Team [facility] 06-25-2024 Miscellaneous Notes Formattin g of this note might be different from the original. June 25, 2024 Dear Messi Villa, Thank you for your request. Please call to confirm cancellation request, next availability for reschedule is possibly and not guaranteed NOVEMBER/2024 Please call [phone] Thank you for choosing [facility] for your healthcare. Sincerely, Your Care Team documented in this encounter [facility] 06-11-2024 Nurse Note NURSE POST PROCEDURE ASSESSMENT Level of Consciousness: Alert and Oriented Transferred: via Ambulation Post Procedure Vital Signs: Not indicated Specimens obtained: None Post Procedure: Cystoscopy Discharge Notes: Patient returns to pre-procedure mental status. Patient alert and oriented on discharge. Discharge Pain level: 0 on a scale of 0-10. THE FOLLOWING WAS EVALUATED Motivation To Learn: Interested Family/Significant Other Support: High : Family not present. Cognitive Ability: Alert and oriented Patient Learns Best By:Individual Instruction and Written Material The Following Influencing Factors Were Barriers To This Education Session: Zoroastrian Factors: No barriers The Following Physical Limitations Were Barriers To This Education Session: None Instruction Provided To: Patient Patient Evaluation:Verbalizes understanding Follow Up Plan: as instructed Supplemental Material Given:Written Material UNIVERSAL PROTOCOL / SAFETY CHECKLIST Procedure to be Performed: Cysto Sign In: A Moment of CARE was completed. Personnel directly involved with the procedure wore the appropriate PPE (Personal Protective Equipment). Patient/Surrogate Stated/Verified: PATIENT VERIFIED(optional for EMERGENT procedures): Patient name, Date of , Relevant allergies, and The intended procedure Time Out Communication: Intended patient and procedure match the source documents. Consent documented and matches the intended procedure. Relevant labs, photos, and/or imaging studies have been reviewed. No correct side/site applicable for marking and visibility. Medications required for procedure verified. Fire risk assessed and interventions discussed. No implant(s) inserted. Sign Out: SIGN OUT (optional for EMERGENT procedures): No specimen collected. No instruments, equipment or retained foreign bodies applicable. Post-procedure follow-up management communicated and Plan of Care Visit completed when applicable. FANNIE Jacobs [facility] 06-11-2024 Nurse Note NURSE POST PROCEDURE ASSESSMENT Level of Consciousness: Alert and Oriented Transferred: via Ambulation Post Procedure Vital Signs: Not indicated Specimens obtained: None Post Procedure: Cystoscopy Discharge Notes: Patient returns to pre-procedure mental status. Patient alert and oriented on discharge. Discharge Pain level: 0 on a scale of 0-10. THE FOLLOWING WAS EVALUATED Motivation To Learn: Interested Family/Significant Other Support: High : Family not present. Cognitive Ability: Alert and oriented Patient Learns Best By:Individual Instruction and Written Material The Following Influencing Factors Were Barriers To This Education Session: Zoroastrian Factors: No barriers The Following Physical Limitations Were Barriers To This Education Session: None Instruction Provided To: Patient Patient Evaluation:Verbalizes understanding Follow Up Plan: as instructed Supplemental Material Given:Written Material UNIVERSAL PROTOCOL / SAFETY CHECKLIST Procedure to be Performed: Cysto Sign In: A Moment of CARE was completed. Personnel directly involved with the procedure wore the appropriate PPE (Personal Protective Equipment). Patient/Surrogate Stated/Verified: PATIENT VERIFIED(optional for EMERGENT procedures): Patient name, Date of , Relevant allergies, and The intended procedure Time Out Communication: Intended patient and procedure match the source documents. Consent documented and matches the intended procedure. Relevant labs, photos, and/or imaging studies have been reviewed. No correct side/site applicable for marking and visibility. Medications required for procedure verified. Fire risk assessed and interventions discussed. No implant(s) inserted. Sign Out: SIGN OUT (optional for EMERGENT procedures): No specimen collected. No instruments, equipment or retained foreign bodies applicable. Post-procedure follow-up management communicated and Plan of Care Visit completed when applicable. FANNIE Jacobs PRE CYSTO PROCEDURE ID Verified by: FANNIE Jacobs Procedure Indication:Cystoscopy Latex Allergy: No Betadine Allergy: No Lidocaine allergy: No Allergies reviewed and updated. Pre-Procedure Vital Signs: Blood pressure 162/73, pulse (!) 55. Heart valve replacement:No Joint replacement: No Pre-Procedure Antibiotics: Cephalexin 500mg given now @ 12:09 pm , by Radha Riggs RN verified by Sonia Trevino LPN Patient Prep: Betadine Scrub to perineum and placement of Sterile Drape. Anesthetic Given: 10 cc 2% Lidocaine jejeanay FANNIE Lazo Rn documented in this encounter [facility] 06-11-2024 Nurse Note PRE CYSTO PROCEDURE ID Verified by: FANNIE Jacobs Procedure Indication:Cystoscopy Latex Allergy: No Betadine Allergy: No Lidocaine allergy: No Allergies reviewed and updated. Pre-Procedure Vital Signs: Blood pressure 162/73, pulse (!) 55. Heart valve replacement:No Joint replacement: No Pre-Procedure Antibiotics: Cephalexin 500mg given now @ 12:09 pm , by Radha Riggs RN verified by Sonia Trevino LPN Patient Prep: Betadine Scrub to perineum and placement of Sterile Drape. Anesthetic Given: 10 cc 2% Lidocaine jelly FANNIE Lazo Rn [facility] 06-11-2024 Note HNO ID: [id number] Author: ANNETTA KRAUSE MD Service: ? Author Type: Physician Type: Progress Notes Filed: 07/26/2024 20:40 Note Text: PHYSICIAN'S NOTE: CYSTOSCOPY PROCEDURE Epic notes reviewed: yes Interval history: foreign body in bladder, urethral stricture, bph Informed consent obtained Operation: Cystoscopy Anatomic Site: Bladder, Laterality: N/A Urethra, Laterality: Not applicable Prostate, Laterality: N/A Approach: endoscopic Device: None Qualifier: None TECHNIQUE: The procedure was fully explained to the patient, risks were reviewed. The patient was placed in the supine position. The genitalia were prepped with betadine, and the urethra was anesthetized with viscous 2% lidocaine. The flexible cystoscope was introduced into the urethra and advanced under direct vision with findings as outlined below. At the conclusion of the procedure, the cystoscope was withdrawn. Anesthetics given: Administered by nurse - see Pre-Procedure Nurse's Notes. Operative Findings Urethra: distal urethral stricture able to be negotiated with scope Prostate: s/p urolift Bladder: no stones, no tumors, no lesions, capsular tabs without stone in bladder, trabeculated Radiologic Studies Urogram: N/A Complications: None INTERNATIONAL PROSTATE SYMPTOM SCORE (I-PSS) 1)INCOMPLETE EMPTYING Over the past month, how often have you had a sensation of not emptying your bladder completely after you finished urinating? SCORE: 3- About half the time 2)FREQUENCY Over the past month, how often have you had to urinate again less than two hours after you finished urinating? SCORE: 4- More than half the time 3)INTERMITTENCY Over the past month, how often have you found you stopped and started again several times when you urinated? SCORE: 3- About half the time 4)URGENCY Over the past month, how often have you found it difficult to postpone urination? SCORE: 2- less than half the time 5)WEAK STREAM Over the past month, how often have you had a weak stream? SCORE: 3- About half the time 6)STRAINING Over the past month, how often have you had to push or strain to begin urination SCORE: 0- Not at all 7)NOCTURIA Over the past month, how many times did you most typically get up to urinate from the time you went to bed at night until the time you get up in the morning? SCORE:2 TOTAL I-PSS SCORE: 17 QUALITY OF LIFE DUE TO URINARY SYMPTOMS If you were to spend the rest of yur life with your urinary condition just the way it is now, how would you feel about that? 3- Mixed- equally satisfied and dissatisfied Recommendations: Discussed findings with patient Post Procedure Evaluation Condition Post Procedure: satisfactory Post Procedure Medications: keflex reassurance given restart urethral self dilations pt to f/u in 2 years for cysto Discussed sperm granuloma of right epididymis. Not current ly tender today reassurance NSAIDS if it becomes tender I spent a total of 30 minutes on the date of the service which included preparing to see the patient, [id number] patient care, completing clinical documentation, performing a medically appropriate examination, counseling and educating the patient/family/caregiver, ordering medications, tests, or procedures, independently interpreting results (not separately reported), communicating results to the patient/family/caregiver and care coordination (not separately reported). Annetta Krause MD [facility] 06-11-2024 History of Presen t illness Narrative PHYSICIAN'S NOTE: CYSTOSCOPY PROCEDURE Epic notes reviewed: yes Interval history: foreign body in bladder, urethral stricture, bph Informed consent obtained Operation: Cystoscopy Anatomic Site: Bladder, Laterality: N/A Urethra, Laterality: Not applicable Prostate, Laterality: N/A Approach: endoscopic Device: None Qualifier: None TECHNIQUE: The procedure was fully explained to the patient, risks were reviewed. The patient was placed in the supine position. The genitalia were prepped with betadine, and the urethra was anesthetized with viscous 2% lidocaine. The flexible cystoscope was introduced into the urethra and advanced under direct vision with findings as outlined below. At the conclusion of the procedure, the cystoscope was withdrawn. Anesthetics given: Administered by nurse - see Pre-Procedure Nurse's Notes. Operative Findings Urethra: distal urethral stricture able to be negotiated with scope Prostate: s/p urolift Bladder: no stones, no tumors, no lesions, capsular tabs without stone in bladder, trabeculated Radiologic Studies Urogram: N/A Complications: None INTERNATIONAL PROSTATE SYMPTOM SCORE (I-PSS) 1)INCOMPLETE EMPTYING Over the past month, how often have you had a sensation of not emptying your bladder completely after you finished urinating? SCORE: 3- About half the time 2)FREQUENCY Over the past month, how often have you had to urinate again less than two hours after you finished urinating? SCORE: 4- More than half the time 3)INTERMITTENCY Over the past month, how often have you found you stopped and started again several times when you urinated? SCORE: 3- About half the time 4)URGENCY Over the past month, how often have you found it difficult to postpone urination? SCORE: 2- less than half the time 5)WEAK STREAM Over the past month, how often have you had a weak stream? SCORE: 3- About half the time 6)STRAINING Over the past month, how often have you had to push or strain to begin urination SCORE: 0- Not at all 7)NOCTURIA Over the past month, how many times did you most typically get up to urinate from the time you went to bed at night until the time you get up in the morning? SCORE:2 TOTAL I-PSS SCORE: 17 QUALITY OF LIFE DUE TO URINARY SYMPTOMS If you were to spend the rest of yur life with your urinary condition just the way it is now, how would you feel about that? 3- Mixed- equally satisfied and dissatisfied Recommendations: Discussed findings with patient Post Procedure Evaluation Condition Post Procedure: satisfactory Post Procedure Medications: keflex reassurance given restart urethral self dilations pt to f/u in 2 years for cysto Discussed sperm granuloma of right epididymis. Not current ly tender today reassurance NSAIDS if it becomes tender I spent a total of 30 minutes on the date of the service which included preparing to see the patient, [id number]-bluh patient care, completing clinical documentation, performing a medically appropriate examination, counseling and educating the patient/family/caregiver, ordering medications, tests, or procedures, independently interpreting results (not separately reported), communicating results to the patient/family/caregiver and care coordination (not separately reported). Annetta Krause MD documented in this encounter [facility] 11-16-2023 Discharge summary Note Date/Time November 16, 2023 10:52am [facility] [address] [place] [address]. [address] [place] [address] / REHABILITATION SERVICES DISCHARGE SUMMARY MR#: [id number] Acct: [id number] Name: MESSI VILLA Rep #: [id number] : 1945 78 From: Zulema Clinton PT, Cert. MDT Referring Dr.: Dr. Miseal Conti MD Status: REG RCR Insurance: MEDICARE PART A B AAR Discharge Summary D/C summary: It has been my pleasure to treat MESSI VILLA referred by Dr. Misael Conti MD, with the diagnosis of L SHLD ARTHROSCOPIC ROTATOR CUFF REPAIR 08/02/23 for a total of 25 visit(s). Discharge Date: 11/16/23 Please see the following information for a summary of their discharge status. Subjective Subjective: INTERMITTENT RESIDUAL L SHLD SORENESS WITH REACHING AND IN L SDLY. HAPPY WITH OUTCOME AND FEELS READY TO CONTINUE WITH INDEP GYM PROGRAM. Pain L Shoulder: Pain Intensity (Out of 10): 0 Overall Improvement % Improvement: 95 Objective Objective/Function: PATIENT WAS SEEN TODAY FOR RE-ASSESSMENT OF PROGRESS TOWARD THE SET PT GOALS AND THE NEED FOR FURTHER PHYSICAL THERAPY VS READINESS FOR DISCHARGE. UPON EXAM TODAY: ALL GOALS MET. L UE ROM AND STRENGTH WFL. INDEP GYM PROGRAM HAS BEEN PROVIDED. PATIENT WITH NO COMPLAINTS OR CONCERNS. Goals Goal 1:: RESTORE FULL PROM L SHLD FLEX, IR AND ER ROM Goal Progress: Goal Met Goal 2:: RESTORE FULL AAROM L SHLD FLEX AND ER Goal Progress: Goal Met Goal 3:: INCREASE L SHLD ROTATOR CUFF, PERISCAPULAR AND DELTOID STRENGTH TO 4/5 Goal Progress: Goal Met Goal 4:: PATIENT WILL BE INDEP WITH [facility] FOR CONTINUED IMPROVEMENT ONCE FORMAL PHYSICAL THERPAY CONCLUDES. Goal Progress: Goal Met Plan Plan: D/C D/C Information d/c sentence: If there are questions or concerns regarding this patient's physical therapy, please feel free to call me at [phone]. Thank you for the referral of thispatient. Sincerely, Zulema Clinton, PT, Cert MDT Balance/Gait/Functional tests Balance/Special Test Scores Quick DASH Score: 5.0000 Improvement % Improvement: 95 <Electronically signed by Zulema Clinton PT Cert. T> 11/16/23 1052 CC: Dr. Misael Conti MD; Dr. Moiz Elise MD ~ [place] Signed [facility] Work Phone: 1(127) [phone] Evaluation note* Diagnosis Onset Date Resolution Status Atherosclerotic heart diseas e of [place] coronary artery without angina pectoris chronic Essential (primary) hypertension chronic Hyperlipidemia chronic History of coronary artery stent placement December 05 14 resolved [facility] Work Phone: 1(359) 482-949205-09-2014 Evaluation note* Diagnosis Onset Date Resolution Status Dizziness acute Essential (primary) hypertension chronic Hyperlipidemia chronic History of coronary artery stent placement December 05 14 resolved [facility] Work Phone: 1([phone]) 360-971605-09-2014 Evaluation note* Diagnosis Onset Date Resolution Status Essential (primary) hypertension chronic Hyperlipidemia chronic History of coronary artery stent placement December 05 14 resolved [facility] Work Phone: [phone]) 370-583305-09-2014 Evaluation note* Diagnosis Onset Date Resolution Status Bradycardia acute Essential (primary) hypertension chronic Hyperlipidemia chronic History of coronary artery stent placement December 05 14 resolved Bradycardia acute Essential (primary) hypertension chronic Hyperlipidemia chronic History of coronary artery stent placement December 05 14 resolved [facility] Work Phone: [phone]) 557-108505-09-2014 Evaluation note* Diagnosis Onset Date Resolution Status Bradycardia acute Essential (primary) hypertension chronic Hyperlipidemia chronic History of coronary artery stent placement December 05 14 resolved [facility] Work Phone: Evaluation noteNo assessment information available [facility] Work Phone: Evaluation note* Diagnosis Routine medical exam- Primary Routine general medical examination at a health care facility Unspecified essential hypertension Need for prophylactic vaccination against Streptococcus pneumoniae (pneumococcus) Need for prophylactic vaccination against streptococcus pneumoniae (pneumococcus) Nasal obstruction Other diseases of nasal cavity and sinuses Depression Depressive disorder, not elsewhere classified Foreign body in bladder, sequela- Primary Screening for genitourinary condition Screening for other and unspecified genitourinary condition Postprocedural male urethral stricture Postoperative urethral stricture BPH with obstruction/lower urinary tract symptoms Hypertrophy of prostate with urinary obstruction and other lower urinary tract symptoms (LUTS) Urinary frequency Weak urinary stream Slowing of urinary stream Intermittent urinary stream Splitting of urinary stream [facility] Diagnosis Routine medical exam- Primary Routine general medical examination at a health care facility Unspecified essential hypertension Need for prophylactic vaccination against Streptococcus pneumoniae (pneumococcus) Need for prophylactic vaccination against streptococcus pneumoniae (pneumococcus) Nasal obstruction Other diseases of nasal cavity and sinuses Depression Depressive disorder, not elsewhere classified Sleep related bruxism- Primary TMJ crepitus Temporomandibular joint sounds on opening and/or closing the jaw Attrition, teeth excessive Excessive attrition of teeth, unspecified Myofascial pain Mylagia and myositis, unspecified [facility] Additional Instructions Thank you for trusting us with your care today! Please take Tylenol (2 pills, 650 mg), ibuprofen (2 pills, 400 mg) every 6 hours as needed for pain and fever control. Please take prednisone as prescribed. Please go to local pharmacy or drugstore and obtain Pepcid and Zyrtec. Please take 1 pill of each daily for the next 5 days Please return to the emergency department if your symptoms change or worsen. Specifically develop difficulty swallowing, drooling, feeling of closure of your throat, loud upper airway noises (inspiratory stridor), blue discoloration, increased work of breathing, shortness of breath or chest pain. Please follow with your primary care physician for further outpatient evaluation and management.[facility] Work Phone: Reason for visit Narrative* Financial Clearance (Routine) - Closed Specialty Diagnoses / Procedures Referred By Avtar t Referred To Contact Dentistry / DENTISTRY Diagnoses TMJ Consult no NG/ Will send pano Procedures TMJ CONSULT Self Kylah Dimas, DDS [address] [place] [address] Phone: tel: fax: Referral ID Status Reason Start Date Expiration Date V isits Requested Visits Authorized [id number] Closed Financial Clearance Required - Self Pay OON/Self Pay Override Dental - Patient Cleared required payment collected 10/29/2024 01/27/2025 1 1 [facility] Chief Complaint and Reason for Visit Chief Complaint 7 M FU (MOVED FROM [facility]) Reason for Visit Atherosclerotic hear t disease of [place] coronary artery without angina pectoris Essential (primary) hypertension Hyperlipidemia History of coronary artery stent placement Chief Complaint Radiculopathy, lumba r region/CC RESULTS TO PCP Chief Complaint Radiculopathy, lumba r region/CC RESULTS TO PCP 6 M FU INT LABS DIZZINESS Reason for Visit Dizziness Essential (primary) hypertension Hyperlipidemia History of coronary artery stent placement Chief Complaint Radiculopathy, lumba r region/CC RESULTS TO PCP 6 M FU INT LABS DIZZINESS E ORDERS Reason for Visit Dizziness Essential (primary) hypertension Hyperlipidemia History of coronary artery stent placement Chief Complaint E ORDERS Chief Complaint 6 M FU E ORDERS Reason for Visit Essential (primary) hypertension Hyperlipidemia History of coronary artery stent placement Chief Complaint E ORDERS E ORDER Chief Complaint E ORDER 6 M FU L SHOULDER PAIN RX HERE 3 M FU E ORDER Reason for Visit Bradycardia Essential (primary) hypertension Hyperlipidemia History of coronary artery stent placement Bradycardia Essential (primary) hypertension Hyperlipidemia History of coronary artery stent placement Chief Complaint E ORDER 6 M FU L SHOULDER PAIN RX HERE 3 M FU E ORDER Bradycardia, unspecified Reason for Visit Bradycardia Essential (primary) hypertension Hyperlipidemia History of coronary artery stent placement Bradycardia Essential (primary) hypertension Hyperlipidemia History of coronary artery stent placement Chief Complaint 6 M FU L SHOULDER PAIN RX HERE 3 M FU E ORDER Bradycardia, unspecified PALPITATIONS Reason for Visit Bradycardia Essential (primary) hypertension Hyperlipidemia History of coronary artery stent placement Bradycardia Essential (primary) hypertension Hyperlipidemia History of coronary artery stent placement Chief Complaint E ORDER Bradycardia, unspecified PALPITATIONS Amb Documentation 6 M FU ROTATOR CUFF TEAR OF LEFT SHOULDER. RX HERE Reason for Visit Bradycardia Essential (primary) hypertension Hyperlipidemia History of coronary artery stent placement Chief Complaint Amb Documentation 6 M FU ROTATOR CUFF TEAR OF LEFT SHOULDER. RX HERE CHEST XRAY [place]EN GLAND Reason for Visit Bradycardia Essential (primary) hypertension Hyperlipidemia History of coronary artery stent placement Chief Complaint 6 M FU CHEST XRAY [place] ROTATOR CUFF TEAR OF LEFT SHOULDER. RX HERE Reason for Visit Bradycardia Essential (primary) hypertension Hyperlipidemia History of coronary artery stent placement Family History No Family History Records Found Relationship Condition Age at Onset Recorded Date/T [place] father Coronary artery disease Unknown Unknown mother Malignant neoplasm of pancreas Unknown Advance Directives No Advanced Directives Records Found Advance Directive Response Recorded Date/ Time Living Will No October 12, 2020 5:13am Power of Market Researcher Yes October 12 5:13am Advance Directive Response Recorded Date/ Time Living Will No October 12, 2020 4:13am Power of Market Researcher Yes October 12 4:13am Documents on File Type Date Recorded Patient Still Operator Expl anation Advance Directive(s) 02/28/2011 8:53 PM Documents on File Type Date Recorded Patient Still Operator Expl anation Advance Directive(s) 02/28/2011 8:53 PM Summary Purpose Additional Source Comments Goals (unrecognized section and content) Goals may be documented in a n alternate sectionGoals may be documented in an alternate sectionGoals may be documented in an alternate sectionGoals may be documented in an alternate sectionGoals may be documented in an alternate sectionGoals may be documented in an alternate sectionGoals may be documented in an alternate sectionGoals may be documented in an alternate sectionGoals may be documented in an alternate sectionGoals may be documented in an alternate sectionGoals may be documented in an alternate sectionGoals may be documented in an alternate sectionGoals may be documented in an alternate sectionGoals may be documented in an alternate section Care Teams (unrecognized sec tion and content) Team Status: Active Member Role Status Dates Dr. Moiz Elise MD Family Provider Active Dr. Moiz Elise MD Primary Care Provider Active Team Status: Inactive Member Role Status Dates Dr. Moiz Elise MD Primary Care Provider, Referr ing Provider Active Dr. Edd Berman MD Attending Provider Active Team Status: Inactive Member Role Status Dates Dr. Moiz Elise MD Primary Care Pr ovider, Attending Provider, Referring Provider Active Team Status: Inactive Member Role Status Dates Dr. Moiz Elise MD Primary Care Provider, Referr ing Provider Active Tila Caldwell FIELD SCOUT, FIELD SCOUT-C Attending Provider Active Team Status: Active Member Role Status Dates Dr. Moiz Elise MD Primary Care Provider Active Carlos Alberto Reeves PA, PA-C Attending Provider, Referring Pr ovider Active Team Status: Inactive Member Role Status Dates Dr. Moiz Elise MD Primary Care Provider Active Tila Caldwell FIELD SCOUT, FIELD SCOUT-C Attending Provider, Referring P rovider Active Team Status: Active Member Role Status Dates Dr. Moiz Elise MD Primary Care Provider Active Tila Caldwell FIELD SCOUT, FIELD SCOUT-C Attending Provider Active Team Status: Active Member Role Status Dates Dr. Moiz Elise MD Primary Care Provider Active Dr. Edd Berman MD Attending Provider Active Team Status: Active Member Role Status Dates Dr. Moiz Elise MD Primary Care Provider Active Dr. Misael Conti MD Attending Provider Active Team Status: Active Member Role Status Dates Dr. Moiz Elise MD Primary Care Pr ovider, Attending Provider, Referring Provider Active Team Status: Inactive Member Role Status Dates Dr. Moiz Elise MD Primary Care Provider Active Dr. Barrie Pike DO Emergency Provider Active Team Status: Inactive Member Role Status Dates Dr. Moiz Elise MD Primary Care Provider Active Dr. Misael Conti MD Attending Provider Active Team Status: Inactive Member Role Status Dates Dr. Moiz Elise MD Primary Care Provider Active Dr. Barrie Pike DO Attending Provider, Scott hewitt Active Tubing Machine Tender Relationship Specialty Start Date End Date Moiz Elise MD [address] [place] [address] PCP - General Family Medicine 12/13/17 Tubing Machine Tender Relationship Specialty Start Date End Date Moiz Elise MD [address] [place] [address] PCP - General Family Medicine 12/13/17 Tubing Machine Tender Relationship Specialty Start Date End Date Moiz Elise MD [address] [facility] [address] [place] [address] PCP - General Family Medicine 12/13/17 Source Comments (unrecognize d section and content) In the event this informatio n is protected by the Federal Confidentiality of Alcohol and Drug Abuse Patient Records regulations: The Federal rules restrict any use of the information to criminally investigate or prosecute any alcohol or drug abuse patient.[facility] the event this information is protected by the Federal Confidentiality of Alcohol and Drug Abuse Patient Records regulations: The Federal rules restrict any use of the information to criminally investigate or prosecute any alcohol or drug abuse patient.[facility] the event this information is protected by the Federal Confidentiality of Alcohol and Drug Abuse Patient Records regulations: The Federal rules restrict any use of the information to criminally investigate or prosecute any alcohol or drug abuse patient.[facility] Reason for Visit (unrecogniz ed section and content) Reason Comments Appointment Reason Comments Cystoscopy-1 (unrecognized sect ion and content) No Status Records FoundNo Status Records Found INFORMATION SOURCE (unrecogn ized section and content) DATE CREATED AUTHOR 09/25/2024 [facility] DATE CREATED AUTHOR AUTHOR'S ORGANIZ ATION 12/03/2024 [facility] FOR RECORDS PERTAINING TO PATIENTS WHO ARE [...] BE BASED ON THE PRIMARY CLINICAL RECORDS. [facility]. provides no warranty or guarantee of the accuracy or completeness of information in this document.
[2025-01-20 07:18] LABS: Bacteria 0 SEEN /hpf (None Seen); Mucous, Urine 0 SEEN /hpf (<or=2+)
[2025-01-20 09:12] LABS: Absolute Lymphocyte Count 1.65 X10^3/uL (0.83-4.51); Absolute Neutrophil Count 3.2 X10^3/uL (2.0-7.7); Basophil# 0.04 X10^3/uL; Basophil% 0.7 % (0-1); Eosinophil# 0.21 X10^3/uL; Eosinophils% 3.7 % (0-5); Hematocrit 41.8 % (40-54); Hemoglobin 14.6 g/dL (13.0-16.5); Lymphocyte # 1.65 X10^3/ul (0.83-4.51); Mean Corp Hgb Conc 34.9 g/dL (32-36); Mean Corpuscular Hgb 32.5 pg (27.0-32.0); Mean Corpuscular Volume 93.1 fL (80-94); Mean Platelet Vol. 10.6 fl (6.2-12.0); Monocyte% 10.6 % (0-10); NRBC Flagged by Analyzer 0 % (0-5); Neutrophil # 3.17 X10^3/uL (2.7-7.7); Neutrophil % 55.8 % (47-70); Platelet Count 240 K/mm3 (150-450); RBC Distribution Width CV 13.1 % (11.6-14.6); RBC Distribution Width SD 44.9 fl (35.1-43.9); Red Blood Count 4.49 M/mm3 (4.6-6.2); White Blood Count 5.7 K/mm3 (4.4-11.0)
[2025-01-20 09:29] LABS: Color, Urine Yellow (Yellow); Glucose, Dipstick Normal (Normal); Ketone-Dipstick Negative (Negative); Leukocyte Esterase-Dipstick 500 /ul (Negative); Nitrite-Dipstick Negative (Negative); Occult Blood-Urine 10 /ul (Negative); Protein-Dipstick 30 mg/dl (Negative); Urine Bilirubin Dipstick Negative (Negative); Urine Clarity Sl. Cloudy (Clear); Urine Urobilinogen Normal (Normal)
[2025-01-20 09:56] LABS: ALB/GLOB Ratio 1.3 RATIO (0.9-2.4); AST(SGOT) 28 U/L (<=37); Alanine Aminotransfer ALT/SGPT 15 U/L (<=46); Albumin, Serum 4.1 g/dL (3.4-4.8); Alkaline Phosphatase 89 U/L (40-129); Anion Gap 12 (5-15); BUN 28 mg/dL (4-19); BUN/Creat Ratio 23.1 RATIO (10-20); Calcium,Total 9.4 mg/dL (7.6-11.0); Carbon Dioxide 25.9 mmol/L (21.0-32.0); Chloride 102 mmol/L (98-108); Cholesterol 132 mg/dL (<=200); EST Glomerular Filtration Rate 62 (>60); Globulin 3.1 g/dL (2.2-4.2); Glucose 95 mg/dL (70-99); High Density Lipoprotein 56 mg/dL; Low Density Lipoprotein Calc. 63 mg/dL; Potassium 3.8 mmol/L (3.3-5.1); Protein, Total 7.2 g/dL (5.9-8.4); Sodium Level 140 mmol/L (133-145); Total Bilirubin 0.64 mg/dL (0.00-1.30); Triglycerides 69 mg/dL; Very Low Density Lipoprotein 14 mg/dL (5-40); cholesterol:hdl ratio screen 2.37
[2025-01-20 09:58] LABS: Red Blood Cells-Urine 0-5 SEEN /hpf (0-5); Squamous Epithelial Cells - UA 0-5 SEEN /hpf (0-5); White Blood Cells 25-50 SEEN /hpf (0-5)
== END | disposition home or self-care (01) ==
LOC: LAB 07:14
PROVIDERS: PCP Family Medicine; Referring Provider Family Medicine; Visit Provider Family Medicine
DX: I10 Essential (primary) hypertension (principal); E03.9 Hypothyroidism, unspecified; E55.9 Vitamin D deficiency, unspecified
CPT/HCPCS: 80053; 80061; 81001; 82306; 84439; 84443; 85025

== ENCOUNTER → 2025-02-20 | Outpatient (CLI) | payer MEDICARE, OTHER, SELFPAY | END | disposition home or self-care (01) | LOC: LAB 11:12 | PROVIDERS: PCP Family Medicine; Referring Provider Family Medicine; Visit Provider Family Medicine | DX: I10 Essential (primary) hypertension (principal); E03.9 Hypothyroidism, unspecified | CPT/HCPCS: 36415; 84439 ==

== ENCOUNTER → 2025-04-24 | Outpatient (CLI) | payer MEDICARE, OTHER, SELFPAY ==
--- NOTE | 2025-04-24 15:46 | VDLE_ITS ---
Reason For Study Reason For Study: LLE Swelling Procedure LEFT This is a venous duplex using B-mode, color flow and GSV is normal. spectral Doppler. CFV is compressible, spontaneous, phasic, competent, Exam performed in department. and demonstrates normal augmentation. The exam was diagnostic. FV is compressible, spontaneous, phasic, competent A preliminary report was called and/or faxed to and demonstrates normal augmentation. John / Dr Eli. POP V is compressible, spontaneous, phasic, competent and demonstrates normal augmentation. T/P Trunk is compressible. PTV is compressible. LT PerV is compressible. VL/Venous Duplex US, Unilateral Interpretation Summary Deep veins of the left lower extremity are patent and compressible segmentally. There is no evidence of left lower extremity deep vein thrombosis. Valvular competence appears intact within the p roximal deep venous system on the left . The left great saphenous vein appears patent and compressible segmentally. Ordering Physician: Sarahi Eli Referring Physician: Sarahi Eli Performed By: Merlin Harp RVT
--- OUTSIDE RECORDS SUMMARY | 2025-04-24 16:00 | XMS RPT_ITS | CCD ---
Author Organization [facility] CliniSypr Care Team Providers Care Carbon Accountant Name Role Phone Rosy Ibanez Unavailable Unavailable Lona RN, Unique A Unavailable Unavailable Lona RN, Unique A Unavailable Unavailable Alie Chauhan Unavailable Alie Chauhan Unavailable Lona RN, Unique A Unavailable Unavailable Lona RN, Unique A Unavailable Unavailable Omar MCKINNON, Moiz Hyde Unavailable DeFinis, Royerumi Y Unavailable Unavailable DeFinis, Harumi Y Unavailable Unavailable Alie Chauhan Unavailable Dr. Moiz Mueller Primary Care Provider [phone] Dr. Moiz Mueller Referring Provider Javi MCKINNON NP-C Tila Attending Provider Dr. Moiz Mueller Primary Care Provider Dr. Moiz Mueller Referring Provider Javi MCKINNON NP-Cory Adorno Attending Provider Dr. Trino Mclean Attending Provider Javi MCKINNON NP-C Tila Referring Provider Dr. Moiz Mueller Primary Care Provider [phone] Dr. Moiz Mueller Referring Provider Dr. Edd Berman Attending Provider Dr. Moiz Mueller Primary Care Provider [phone]([facility] [phone] Dr. Moiz Mueller Referring Provider 1([facility])[phone] ADI Caldwell NPC Tila Attending Provider Dr. Moiz Mueller Primary Care Provider [phone] Dr. Moiz Mueller Referring Provider Javi BIOMETRICS ANALYST, BIOMETRICS ANALYST-C Tila Attending Provider Dr. Moiz Mueller Primary Care Provider [phone] Dr. Edd Berman Attending Provider Javi BIOMETRICS ANALYST, BIOMETRICS ANALYST-C Tila Attending Provider Dr. Moiz Mueller Referring Provider Dr. Moiz Mueller Primary Care Provider [phone] Javi BIOMETRICS ANALYST, BIOMETRICS ANALYST-C Tila Attending Provider Dr. Moiz Mueller Referring Provider Dr. Moiz Mueller Primary Care Provider [phone] Javi BIOMETRICS ANALYST, BIOMETRICS ANALYST-C Tila Attending Provider Moiz Mueller MD Primary Care Provider ANNETTA KRAUSE Attending Unavailable MOIZ MUELLER Primary Care Unavailable KYLAH DIMAS Attending Unavailable SELF Referring Unavailable MOIZ MUELLER Primary Care Unavailable Dr. Moiz Mueller MD Primary Care Provider Dr. Moiz Mueller MD Attending Provider [phone] Dr. Moiz Mueller MD Referring Provider [phone] Moiz Mueller Referring Unavailable Moiz Mueller Primary Care Unavailable Moiz Mueller Attending Unavailable Antonlela, Edd Attending Unavailable Antonella, Winslow Referring Unavailable Moiz Mueller Primary Care Unavailable Moiz Mueller Referring Unavailable Antonella, Winslow Attending Unavailable Moiz Mueller Primary Care Unavailable Antonella, Edd Attending Unavailable Antonella, Winslow Referring Unavailable Moiz Mueller Primary Care Unavailable Antonella, Winslow Consulting Unavailable Moiz Mueller Referring Unavailable Moiz Mueller Primary Care Unavailable Moiz Mueller Attending Unavailable Moiz Mueller Primary Care Unavailable Moiz Mueller Attending Unavailable Moiz Mueller Referring Unavailable Moiz Mueller Primary Care Unavailable Moiz Mueller Attending Unavailable Moiz Mueller Referring Unavailable Moiz Mueller Primary Care Unavailable Moiz Mueller Attending Unavailable Moiz Mueller Referring Unavailable Misael Conti MD Unavailable NONE, NONE Unavailable Unavailable Moiz Mueller MD Unavailable Allergies Allergy Classification Reported Allergen(s) Allergy Type Date of Onset Reaction(s) Facility (20 sources) Ramipril; Translations: [RAMIPRIL] Drug Allergy 1 Other: See Comments [facility] (4 sources) nabumetone; Translations: [NABUMETONE] Drug Allergy 5 GI Upset [facility] Work Phone: (1 source) Ramipril Drug Allergy 4 [facility] Repository (1 source) Ramipril Drug Allergy 1 [employer] [facility]. Medications Current Medications Medication Drug Class(es) Dates Sig (Normalized) Sig (Original) Adult Aspirin Regimen 81 mg tablet,delayed release (DR/EC) (1 source) Start: 12-14-2020 take 1 tablet by mouth once daily Adult Aspirin Regimen 81 mg tablet,delayed release (DR/EC) 1 tablet by mouth once a day active Azra Owen AT [facility] amLODIPine 10 mg oral tablet (20 sources) Dihydropyridine Calcium Channel Arabella Start: 06-13-2024 End: 09-16-2024 take 1 tablet by mouth once daily Amlodipine 10 mg tablet Active 10 mg PO DAILY 90 4 September 16, 2024 11:17am Pt going out of state for 6 weeks Start: 01-26-2021 End: 06-13-2024 take 1 tablet by mouth once daily Amlodipine 5 mg tablet Discontinued 5 mg PO DAILY 90 4 August 07, 2023 3:02pm June 13, 2024 2:40pm Start: 08-27-2020 End: 01-26-2021 take 1 tablet by mouth once daily Amlodipine 10 mg tablet Discontinued 10 mg PO DAILY 90 3 December 28, 2020 4:30pm January 26, 2021 8:58am Start: 06-04-2020 End: 08-27-2020 take 1 tablet by mouth once daily Amlodipine 5 mg tablet Discontinued 5 mg PO DAILY 90 3 June 04, 2020 1:00am August 27, 2020 5:17pm aspirin 81 mg chewable tablet (20 sources) Nonsteroidal Anti-inflammatory Drug Start: 11-07-2013 take 1 tablet by mouth once daily Aspirin 81 MG tablet,chewable Active 81 mg PO DAILY@0800 November 07, 2013 12:00am heart health Start: 07-28-2011 take 1 tablet by bereket th once daily ASPIRIN 81 MG TABS One tablet by mouth daily ASPIRIN [id number] Aurelia Huerta Start: 07-28-2011 take 1 tablet by bereket th once daily ASPIRIN EC 81 MG TBEC One tablet by mouth daily ASPIRIN [id number] Stephanie Sparrow RN Start: 06-21-2005 ASPIRIN 81 MG TAB Take one (1) tablet daily . 0 06/21/2005 Active atorvastatin 10 mg oral tablet (20 sources) HMG-CoA Reductase Inhibitor Start: 11-10-2013 End: 09-16-2024 take 1 tablet by mouth once daily atorvastatin 10 mg tablet 1 tablet by mouth once a day active Azra Owen AT [facility] benzonatate 100 mg oral capsule (3 sources) Non-narcotic Antitussive Start: 11-20-2016 take 1 capsule by mouth three times daily as needed benzonatate (TESSALON PERLE) 100 mg capsule Indications: Viral URI with cough Take 1-2 capsules by mouth three times daily as needed. 30 capsule 11/20/2016 Active celecoxib 200 mg oral capsule (1 source) Nonsteroidal Anti-inflammatory Drug take 1 capsule by mouth once daily celecoxib 200 mg capsule TAKE 1 CAPSULE BY MOUTH DAILY active Keyanna Alejo MA [facility] cephalexin 500 mg oral capsule (7 sources) Cephalosporin Antibacterial Start: 12-28-2021 cephALEXin 500 mg cap(s) (KEFLEX) cholecalciferol 0.05 mg oral capsule (14 sources) Vitamin D Start: 02-09-2022 take 1 capsule by mouth once daily Cholecalciferol (Vitamin D3) 50 mcg (2,000 unit) capsule Active 100 ug PO DAILY February 09, 2022 12:00am codeine phosphate 2 mg/ml / guaiFENesin 20 [...] by mouth once daily. 0 11/03/2016 Active hydroCHLOROthiazide 25 mg oral tablet (20 sources) Thiazide Diuretic Start: 08-27-2020 End: 09-16-2024 take 1 tablet by mouth once daily hydrochlorothiazide 25 mg tablet 1 tablet by mouth once a day active Azra Owen AT [facility] Start: 11-07-2013 End: 10-15-2017 take 1 capsule by mouth once daily Hydrochlorothiazide 12.5 MG capsule Discontinued 12.5 mg PO DAILY November 07, 2013 12:00am October 15, 2017 7:38pm Start: 07-28-2011 End: 02-15-2016 take 1 tablet by mouth once daily HYDROCHLOROTHIAZIDE 12.5 MG TABS One tablet by mouth daily HYDROCHLOROTHIAZIDE [id number] Edd Berman MD ibuprofen 200 mg oral capsule (1 source) Nonsteroidal Anti-inflammatory Drug ibuprofen 200 mg capsule 2 capsule by mouth as needed for pain active Vilma Jaramillo LPN [facility] levothyroxine sodium 0.088 mg oral tablet (20 sources) l-Thyroxine Start: 02-22-2023 Levothyroxine 88 mcg tablet Active 100 ug PO DAILY February 22, 2023 11:03am Start: 02-22-2023 take 100 ug by mouth once meek y Levothyroxine Active 100 MCG PO DAILY February 22, 2023 11:03am Start: 08-25-2022 End: 02-22-2023 take 1 tablet by mouth once daily Levothyroxine 88 mcg tablet Discontinued 88 ug PO DAILY August 25, 2022 1:00am February 22, 2023 11:03am Start: 12-28-2020 End: 08-25-2022 take 1 tablet by mouth once daily Levothyroxine 75 mcg tablet Discontinued 75 ug PO DAILY December 28, 2020 12:00am August 25, 2022 3:26pm Start: 01-21-2019 End: 12-28-2020 Levothyroxine 50 mcg capsule Discontinued 75 ug PO DAILY January 21, 2019 12:00am December 28, 2020 4:01pm thyroid take 1 tablet by bereket th once daily levothyroxine 100 mcg tablet 1 tablet by mouth once daily active Ayla Chauhan LPN [facility] take 1 capsule by mo [facility] once daily before breakfast levothyroxine 75 mcg cap Take 75 mcg by mouth daily before breakfast. Active methylPREDNISolone 4 mg oral tablet (1 source) Corticosteroid Start: 02-18-2025 Medrol (Geronimo) 4 mg tablets in a dose pack Take 1 dose pack by mouth as directed Following package instructions. Do not take NSAIDs while on this. Do not take Ibuprofen (Advil), Naproxen (Aleve), while taking this medication. active Stephanie Moya PA-C, [address] [place] [address] [facility] [address] [facility] VITAMIN D3 TABLET (1 source) Start: 02-01-2021 take 1 tablet by mouth once daily VITAMIN D3 TABLET 4000 unit by mouth once a day active Azra Owen AT [facility] vitamin D3-vitamin K2 1,250-200 mcg cap (3 sources) vitamin D3-vitam in K2 1,250-200 mcg cap Take by mouth. Active Completed/Discontinued Medications Medication Drug Class(es) Dates Sig (Normalized) Sig (Original) 24 hr alfuzosin hydrochloride 10 mg extended release oral tablet (20 sources) alpha-Adrenergic Arabella Start: 10-15-2017 End: 10-17-2018 take 1 tablet by mouth once daily Alfuzosin 10 mg tablet extended release 24 hr Discontinued 10 mg PO daily October 15, 2017 12:00am October 17, 2018 3:26pm Start: 12-19-2016 take 1 tablet by bereket th once daily ALFUZOSIN HCL ER 10 MG [id number] One tablet by mouth daily ALFUZOSIN HCL [id number] Unique Zamorano RN azelastine hydrochloride 0.206 mg/actuat metered dose nasal spray (11 sources) Histamine-1 Receptor Antagonist Start: 08-25-2022 End: 02-22-2023 Azelastine 205.5 mcg (0.15 %) spray,non-aerosol Discontinued 2 NMA INTRANASAL DAILY August 25, 2022 1:00am February 22, 2023 11:01am Start: 08-25-2022 End: 02-22-2023 Azelastine Discontinued 2 SP RAY INTRANASAL DAILY August 25, 2022 1:00am February 22, 2023 11:01am ciprofloxacin 500 mg oral tablet (17 sources) Quinolone Antimicrobial Start: 01-21-2019 End: 01-28-2019 take 1 tablet by mouth every twelve hours Ciprofloxacin Hcl (Cipro) 500 mg tablet Discontinued 500 mg PO Q12H 14 7 0 January 21, 2019 12:00am January 27, 2019 12:00am January 28, 2019 12:06am Urinary tract infection, site not specified clopidogrel 75 mg oral tablet (20 sources) P2Y12 Platelet Inhibitor Start: 12-04-2013 End: 06-04-2020 take 1 tablet by mouth once daily Clopidogrel 75 mg tablet Discontinued 75 mg PO daily 90 3 2019 11:04am January 20, 2020 2:59pm Start: 11-13-2013 End: 11-20-2013 take 1 tablet by mouth once daily PLAVIX 75 MG TABS One tablet by mouth daily CLOPIDOGREL BISULFATE [id number] Cezar Franco MD diphenhydrAMINE hydrochloride 25 mg oral capsule (17 sources) Histamine-1 Receptor Antagonist Start: 10-12-2020 End: 12-28-2020 take 1 capsule by mouth twice daily as needed Diphenhydramine Hcl 25 MG capsule Discontinued 25 mg PO TWICE DAILY NEEDED as needed for Angioedema 30 0 October 12, 2020 11:21am December 28, 2020 4:01pm DOXYCYCLINE HYCLATE CAPS (20 sources) Tetracycline-clas s Drug Start: 04-23-2014 End: 01-22-2015 DOXYCYCLINE HYCLATE CAPS 20mg daily DOXYCYCLINE HYCLATE CAPS [id number] Edd Berman MD Start: 04-23-2014 DOXYCYCLINE HY CLATE CAPS 20mg daily DOXYCYCLINE HYCLATE CAPS [id number] Edd Berman MD Start: 04-23-2014 End: 01-22-2015 DOXYCYCLINE HYCLATE CAPS 20m g daily DOXYCYCLINE HYCLATE CAPS [id number] Edd Berman MD [id number] 0.3 ml EPINEPHrine 1 mg/ml auto-injector (17 sources) alpha-Adrenergic Agonist, beta-Adrenergic Agonist, Catecholamine Start: 10-12-2020 End: 08-25-2022 Epinephrine 0.3 MG/0.3 ML auto-injector Discontinued 0.3 mg IJ ONE TIME 2 October 12, 2020 12:00am August 25, 2022 3:27pm famotidine 20 mg oral tablet (17 sources) Histamine-2 Receptor Antagonist Start: 10-12-2020 End: 12-28-2020 take 1 tablet by mouth twice daily Famotidine 20 MG tablet Discontinued 20 mg PO TWICE A DAY 30 October 12, 2020 12:00am December 28, 2020 4:02pm levocetirizine dihydrochloride 5 mg oral tablet (18 sources) Histamine-1 Receptor Antagonist Start: 12-14-2020 End: 02-09-2022 take 1 tablet by mouth once daily Levocetirizine 5 mg tablet Discontinued 5 mg PO DAILY December 28, 2020 12:00am February [...] One tablet by mouth daily MULTIPLE VITAMIN [id number] Aurelia Huerta Start: 07-28-2011 End: 10-02-2012 take 1 tablet by mouth once daily MULTIVITAMINS TABS One tablet by mouth daily MULTIPLE VITAMIN [id number] Unique Zamorano RN MULTIPLE VITAMIN (10 sources) Start: 07-28-2011 take 1 tablet by mouth once daily MULTIVITAMINS TABS One tablet by mouth daily MULTIPLE VITAMIN [id number] Aurelia Huerta Start: 07-28-2011 End: 10-02-2012 take 1 tablet by mouth once daily MULTIVITAMINS TABS One tablet by mouth daily MULTIPLE VITAMIN [id number] Unique Zamorano RN predniSONE 20 mg oral tablet (20 sources) Start: 10-11-2023 End: 06-13-2024 take 1 tablet by mouth once daily Prednisone 20 mg tablet Discontinued 20 mg PO DAILY 5 October 11, 2023 12:00am June 13, 2024 2:13pm Start: 10-12-2020 End: 12-28-2020 Prednisone 20 MG tablet Disc ontinued 0 mg PO DAILY October 12, 2020 12:00am December 28, 2020 4:02pm With food Please contact the information source for Taper Schedule details. ramipril 10 mg oral capsule (20 sources) Angiotensin Converting Enzyme Inhibitor Start: 10-02-2012 take 1 tablet by mouth once daily ALTACE 5 MG CAPS One tablet by mouth daily RAMIPRIL [id number] Edd Berman MD Start: 10-02-2012 take 1 tablet by bereket th once daily ALTACE 5 MG CAPS One tablet by mouth daily RAMIPRIL [id number] Edd Berman MD Start: 07-28-2011 take 1 tablet by bereket th once daily ALTACE 10 MG CAPS One tablet by mouth daily RAMIPRIL [id number] Edd Berman MD Start: 09-19-2006 End: 08-27-2020 take 1 capsule by mouth once daily Ramipril 10 mg capsule Discontinued 10 mg PO DAILY 90 3 October 29, 2019 1:40pm January 20, 2020 2:59pm Problems Active Problems Problem Classification Problem Date Documented Date Episodic/Chronic Cardiac dysrhythmias (7 sources) Multiple premature ventricular complexes; Translations: [Ventricular premature depolarization] 05-21-2023 Chronic Cardiac dysrhythmias (19 sources) Bradycardia; Translations: [Bradycardia, unspecified] 02-22-2023 Episodic Conditions associated with dizziness or vertigo (16 sources) Dizziness; Translations: [Dizziness and giddiness] Episodic Conduction disorders (20 sources) Atrioventricular block; Translations: [Right bundle branch block AND left anterior fascicular block] Onset: 5 07-28-2011 Chronic Coronary atherosclerosis and other heart disease (20 sources) Coronary arteriosclerosis; Translations: [Coronary atherosclerosis] Onset: 4 11-20-2013 Chronic Disorders of lipid metabolism (20 sources) Hyperlipidemia; Translations: [Hyperlipidemia, unspecified] Onset: 5 Resolved: 1 01-17-2012 Chronic Disorders of teeth and jaw (6 sources) [...] Translations: [Myofascial pain] Onset: 5 Episodic Other injuries and conditions due to external causes (20 sources) Angioedema; Translations: [Angioneurotic edema, initial encounter] 12-25-2020 Episodic Other nervous system disorders (2 sources) Sleep related bruxism; 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] Onset: 5 11-14-2024 Chronic Other nervous system disorders (1 source) Sleep related bruxism; 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] Onset: 5 Chronic Thyroid disorders (1 source) Hypothyroidism, unspecified; Translations: [Hypothyroidism, unspecified] Onset: 5 Chronic Unclassified (10 sources) Long-term drug therapy; Translations: [Other manager intermediate (current) drug therapy] Onset: 4 08-05-2015 Unclassified (1 source) Finding of body mass index; Translations: [Body mass index (BMI) 26.0-26.9, adult] Onset: 4 12-18-2013 Urinary tract infections (17 sources) Urinary tract infectious disease; Translations: [Urinary tract infection, site not specified] 01-08-2020 Episodic Past or Other Problems Problem Classification Problem Date Documented Date Episodic/Chronic Abdominal hernia (3 sources) Inguinal hernia; Translations: [Unilateral inguinal hernia, without obstruction or gangrene, not specified as recurrent] Onset: 5 Resolved: 1 01-16-2011 Episodic Calculus of urinary tract (3 sources) Urinary bladder stone; Translations: [Calculus in bladder] Onset: 1 12-01-2020 Episodic Complications of surgical procedures or medical care (4 sources) Stricture of male urethra following procedure; Translations: [Postprocedural urethral stricture, male, unspecified] Onset: 1 12-11-2020 Episodic Coronary atherosclerosis and other heart disease (20 sources) Coronary angioplasty status; Translations: [Presence of coronary angioplasty implant and graft] Onset: 4 12-17-2013 Episodic Genitourinary symptoms and ill-defined conditions (13 sources) Poor stream of urine; Translations: [Poor urinary stream] Onset: 0 05-13-2020 Episodic Nonspecific chest pain (12 sources) Chest pain, unspecified; Translations: [Chest pain, unspecified] Onset: 4 11-04-2013 Episodic Other aftercare (14 sources) Long-term (current) use of other medications; Translations: [Other fpc (current) drug therapy] Onset: 4 11-13-2013 Episodic Other circulatory disease (19 sources) Electrocardiogram abnormal; Translations: [Carotid bruit] Onset: 1 07-28-2011 Episodic Other circulatory disease (5 sources) Carotid bruit; Translations: [Other specified symptoms and signs involving the circulatory and respiratory systems] Onset: 1 07-28-2011 Episodic Other connective tissue disease (1 source) Complete rotator cuff tear or rupture of left shoulder, not specified as traumatic; Translations: [Complete rupture of rotator cuff] Onset: 3 05-09-2023 Episodic Other connective tissue disease (1 source) Complete rotator cuff tear or rupture of right shoulder, not specified as traumatic; Translations: [Complete rupture of rotator cuff] Onset: 1 12-14-2020 Episodic Other diseases of kidney and ureters (1 source) Disorder of kidney and ureter, unspecified; Translations: [Disorder of kidney and ureter, unspecified] Onset: 5 Episodic Other ear and sense organ disorders (3 sources) Bilateral tinnitus; Translations: [Tinnitus, bilateral] Onset: 3 02-20-2013 Episodic Other injuries and conditions due to external causes (4 sources) Foreign body in bladder; Translations: [Foreign body in bladder, initial encounter] Onset: 0 06-26-2020 Episodic Other male genital disorders (3 sources) Sperm granuloma of epididymis; Translations: [Other specified disorders of the male genital organs] Onset: 2 12-28-2021 Episodic Other nutritional; endocrine; and metabolic disorders (18 sources) Body mass index (BMI) 26.0-26.9, adult; Translations: [Body mass index (BMI) 27.0-27.9, adult] Onset: 4 12-18-2013 Episodic Other nutritional; endocrine; and metabolic disorders (5 sources) Body mass index (BMI) 27.0-27.9, adult; Translations: [Body mass index (BMI) 27.0-27.9, adult] Onset: 4 11-04-2013 Episodic Other screening for suspected conditions (not mental disorders or infectious disease) (8 sources) Thyroid hormone tests abnormal; Translations: [Other specified abnormal findings of blood chemistry] Onset: 7 08-22-2016 Episodic Residual codes; unclassified (3 sources) Family history of malignant neoplasm of pancreas; Translations: [Family history of malignant neoplasm of digestive organs] Onset: 0 01-07-2010 Episodic Syncope (15 sources) Syncope and collapse; Translations: [Vasovagal syncope] Onset: 4 11-04-2013 Episodic Results Test Name Value Interpretation Reference Range [facility] ([id number]) 1945 M Date Time Provider Department 04/20/25 QUINTON SHAFFER JR During your visit today, we recorded the following information about you: Mir Melchor RN 04/20/2025 4:18 PM Signed Patient has composed a summary of his urinary issues that he would like you to look at to familiarize yourself with prior to his appointment with you. I told him to send it as a document in [employer] instead of sending as an email. With the instructions for you to look at it. Just wanted you to know what to expect from his patient. Halima Allergies As of Date: 04/20/2025 Noted Allergy Reaction RAMIPRIL 12/01/2020 14 - Other: See Comments Comments: Tongue swelling. RELAFEN (NABUMETONE) 06/20/2005 8 - GI Upset Date Reviewed: 11/14/2024 Reviewed by: Thomas Mccartney [facility] - Fully Assessed Reason for Visit: Patient Question [[id number]] Prescriptions as of 04/20/2025 - vitamin D3-vitamin K2 1,250-200 mcg cap [...] tablet daily . 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, [address] HCT Normal 40-54 [facility] Comment on above: Order Comment: Order Date: 01/23/25Order Info: 183- - CBCD Result Comment: DOCT OR SCHINNER ONLY WANTED T4F Performed By: #### L 100.0100 ####[facility] [address] [place], [address] HGB Normal 13.0-16.5 [facility] Comment on above: Order Comment: Order Date: 01/23/25Order Info: 4- - CBCD Result Comment: DOCT OR SCHINNER ONLY WANTED T4F Performed By: #### L 100.0100 ####[facility] [address] [place], [address] MCH Normal 27.0-32.0 [facility] Comment on above: Order Comment: Order Date: 01/23/25Order Info: 4- - CBCD Result Comment: DOCT OR SCHINNER ONLY WANTED T4F Performed By: #### L 100.0100 ####[facility] [address] [place], [address] MCHC Normal 32-36 [facility] Comment on above: Order Comment: Order Date: 01/23/25Order Info: 0184-1 - CBCD Result Comment: DOCT OR SCHINNER ONLY WANTED T4F Performed By: #### L 100.0100 ####[facility] [address] [place], [address] MCV Normal 80-94 [facility] Comment on above: Order Comment: Order Date: 01/23/25Order Info: 0184-1 - CBCD Result Comment: DOCT OR SCHINNER ONLY WANTED T4F Performed By: #### L 100.0100 ####[facility] [address] [place], [address] NEUT% Normal 47-70 [facility] Comment on above: Order Comment: Order Date: 01/23/25Order Info: 0184- - CBCD Result Comment: DOCT OR SCHINNER ONLY WANTED T4F Performed By: #### L 100.0100 ####[facility] [address] [place], [address] PLT Normal 150-450 [facility] Comment on above: Order Comment: Order Date: 01/23/25Order Info: 0184- - CBCD Result Comment: DOCT OR SCHINNER ONLY WANTED T4F Performed By: #### L 100.0100 ####[facility] [address] [place], [address] RBC Normal 4.6-6.2 [facility] Comment on above: Order Comment: Order Date: 01/23/25Order Info: 0184-1 - CBCD Result Comment: DOCT OR SCHINNER ONLY WANTED T4F Performed By: #### L 100.0100 ####[facility] [address] [place], [address] RDW CV Normal 11.6-14.6 [facility] Comment on above: Order Comment: Order Date: 01/23/25Order Info: 0184-1 - CBCD Result Comment: DOCT OR SCHINNER ONLY WANTED T4F Performed By: #### L 100.0100 ####[facility] [address] [place], [address] RDW SD Normal 35.1-43.9 [facility] Comment on above: Order Comment: Order Date: 01/23/25Order Info: 0184-1 - CBCD Result Comment: DOCT OR SCHINNER ONLY WANTED T4F Performed By: #### L 100.0100 ####[facility] [address] [place], [address] WBC Normal 4.4-11.0 [facility] Comment on above: Order Comment: Order Date: 01/23/25Order Info: 0184-1 - CBCD Result Comment: DOCT OR SCHINNER ONLY WANTED T4F Performed By: #### L 100.0100 ####[facility] [address] [place], [address] T4 Free Directon 02-20-2025 T4 FREE DIRECT 1.50 ng/dL High 0.76-1.46 [facility] Comment on above: Order Comment: Order Date: 01/23/25Order Info: 0786-1 - CMPOrder Info: [id number] - LIPIDOrder Info: [id number] - TSHOrder Info: 3024-7 - T4F Performed By: #### L 506.0400 ####[facility] [address] [place], [place], [address] T4 freeOrdered By: Moiz pina on 02-20-2025 Free T4 [Mass/Vol] 1.50 ng/dL High 0.76-1.46 [facility] Relevant diagnostic tests/la boratory data Narrativeon 02-18-2025 Fall risk assessment no [facility] [employer]. Work Phone: MEDS REVIEW Documentation of current medications (procedure) [employer] Work Phone: MEDS REVIEWD Medications reviewed with changes [employer]. Work Phone: MRI HX of the left shoulder on 02/18/2025 at [facility] [employer]. Work Phone: Absolute lymphocyte countOrd ered By: Moiz Mueller on 01-20-2025 Lymphocytes Auto (Unsp spec) [#/Vol] 1.65 10*3/uL 0.83-4.51 [facility] Absolute neutrophil countOrd ered By: Moiz Mueller on 01-20-2025 Neutrophils (Bld) [#/Vol] 3.2 10*3/uL 2.0-7.7 [facility] Anion gap in Serum or Plasma Ordered By: Moiz Mueller on 01-20-2025 Anion gap [Moles/Vol] 12 mmol/L 5- [facility] Automated lymphocyte count a s percentage of total leukocytesOrdered By: Moiz Mueller on 01-20-2025 Lymphocytes/100 WBC Auto (Unsp spec) 29.0 % - [facility] BUN/creatinine ratioOrdered By: Moiz Mueller on 01-20-2025 Urea nitrogen/Creatinine [Mass ratio] 23.1 mg/mg High 10- [facility] Basophil percentageOrdered B y: Moiz Mueller on 01-20-2025 Basophils/100 WBC (Bld) 0.7 % 0-1 [facility] Bilirubin Test strip Ql (U)O rdered By: Moiz Mueller on 01-20-2025 Bilirubin Ql (U) Negative Negative [facility] Bilirubin, totalOrdered By: Moiz Mueller on 01-20-2025 Bilirubin [Mass/Vol] 0.64 mg/dL 0.00-1.30 [facility] CBC W/Diff, Automatedon 12-29 Absolute Lymph 1.65 X10 3/uL Normal 0.83-4.51 [facility] Comment on above: Order Comment: Order Date: 09/11/24 Order Info: 0184-1 - CBCD Performed By: #### L 501.9520, L500.4050, L506.0400, L500.4100, L100.0100 #### [facility] [address] [place], [place], [id number] Absolute Neut 3.2 X10 3/uL Normal 2.0-7.7 [facility] Comment on above: Order Comment: Order Date: 09/11/24 Order Info: 0184-1 - CBCD Performed By: #### L 501.9520, L500.4050, L506.0400, L500.4100, L100.0100 #### [facility] [address] [place], [address] Basophils/100 WBC (Bld) 0.7 % Normal 0-1 [facility] Comment on above: Order Comment: Order Date: 09/11/24 Order Info: 0184-1 - CBCD Performed By: #### L 501.9520, L500.4050, L506.0400, L500.4100, L100.0100 #### [facility] [address] [place], [address] Eosinophils/100 WBC (Bld) 3.7 % Normal 0-5 [facility] Comment on above: Order Comment: Order Date: 09/11/24 Order Info: 0184-1 - CBCD Performed By: #### L 501.9520, L500.4050, L506.0400, L500.4100, L100.0100 #### [facility] [address] [place], [address] Erythrocyte distribution width (RBC) [Ratio] 13.1 % Normal 11.6-14.6 [facility] Comment on above: Order Comment: Order Date: 09/11/24 Order Info: 0184-1 - CBCD Performed By: #### L 501.9520, L500.4050, L506.0400, L500.4100, L100.0100 #### [facility] [address] [place], [address] Hematocrit (Bld) [Volume fraction] 41.8 % Normal 40-54 [facility] Comment on above: Order Comment: Order Date: 09/11/24 Order Info: 0184-1 - CBCD Performed By: #### L 501.9520, L500.4050, L506.0400, L500.4100, L100.0100 #### [facility] [address] [place], [address] Hemoglobin (Bld) [Mass/Vol] 14.6 g/dL Normal 13.0-16.5 [facility] Comment on above: Order Comment: Order Date: 09/11/24 Order Info: 0184-1 - CBCD Performed By: #### L 501.9520, L500.4050, L506.0400, L500.4100, L100.0100 #### [facility] [address] [place], [address] IG% 0.200 Normal 0.0-0.9 [facility] Comment on above: Order Comment: Order Date: 09/11/24 Order Info: 0184-1 - CBCD Result Comment: IG% - Immature Granulocytes (promyelocytes, myelocytes and metamyelocytes) > 1% indicates that a LEFT SHIFT is Present. Performed By: #### L 501.9520, L500.4050, L506.0400, L500.4100, L100.0100 #### [facility] [address] [place], [address] Lymphocytes/100 WBC (Bld) 29.0 % Normal 19-41 [facility] Comment on above: Order Comment: Order Date: 09/11/24 Order Info: 0184-1 - CBCD Performed By: #### L 501.9520, L500.4050, L506.0400, L500.4100, L100.0100 #### [facility] [address] [place], [address] MCH (RBC) [Entitic mass] 32.5 pg High 27.0-32.0 [facility] Comment on above: Order Comment: Order Date: 09/11/24 Order Info: 0184-1 - CBCD Performed By: #### L 501.9520, L500.4050, L506.0400, L500.4100, L100.0100 #### [facility] [address] [place], [address] MCHC (RBC) [Mass/Vol] 34.9 g/dL Normal 32-36 [facility] Comment on above: Order Comment: Order Date: 09/11/24 Order Info: 0184-1 - CBCD Performed By: #### L 501.9520, L500.4050, L506.0400, L500.4100, L100.0100 #### [facility] [address] [place], [address] MCV (RBC) [Entitic vol] 93.1 fL Normal 80-94 [facility] Comment on above: Order Comment: Order Date: 09/11/24 Order Info: 0184-1 - CBCD Performed By: #### L 501.9520, L500.4050, L506.0400, L500.4100, L100.0100 #### [facility] [address] [place], [address] Monocytes/100 WBC (Bld) 10.6 % High 0-10 [facility] Comment on above: Order Comment: Order Date: 09/11/24 Order Info: 0184-1 - CBCD Performed By: #### L 501.9520, L500.4050, L506.0400, L500.4100, L100.0100 #### [facility] [address] [place], [address] Neutrophils/100 WBC (Bld) 55.8 % Normal 47-70 [facility] Comment on above: Order Comment: Order Date: 09/11/24 Order Info: 0184-1 - CBCD Performed By: #### L 501.9520, L500.4050, L506.0400, L500.4100, L100.0100 #### [facility] [address] [place], [address] Nucleated RBC (Bld) [#/Vol] 0 10*3/uL Normal 0-5 [facility] Comment on above: Order Comment: Order Date: 09/11/24 Order Info: 0184-1 - CBCD Performed By: #### L 501.9520, L500.4050, L506.0400, L500.4100, L100.0100 #### [facility] [address] [place], [address] Platelet mean volume (Bld) [Entitic vol] 10.6 fL Normal 6.2-12.0 [facility] Comment on above: Order Comment: Order Date: 09/11/24 Order Info: 0184-1 - CBCD Performed By: #### L 501.9520, L500.4050, L506.0400, L500.4100, L100.0100 #### [facility] [address] [place], [address] Platelets (Bld) [#/Vol] 240 10*3/uL Normal 150-450 [facility] Comment on above: Order Comment: Order Date: 09/11/24 Order Info: 0184-1 - CBCD Performed By: #### L 501.9520, L500.4050, L506.0400, L500.4100, L100.0100 #### [facility] [address] [place], [address] RBC (Bld) [#/Vol] 4.49 10*6/uL Low 4.6-6.2 [facility] Comment on above: Order Comment: Order Date: 09/11/24 Order Info: 0184-1 - CBCD Performed By: #### L 501.9520, L500.4050, L506.0400, L500.4100, L100.0100 #### [facility] [address] [place], [address] RDW SD 44.9 fl High 35.1-43.9 [facility] Comment on above: Order Comment: Order Date: 09/11/24 Order Info: 0184-1 - CBCD Performed By: #### L 501.9520, L500.4050, L506.0400, L500.4100, L100.0100 #### [facility] [address] [place], [address] WBC (Bld) [#/Vol] 5.7 10*3/uL Normal 4.4-11.0 [facility] Comment on above: Order Comment: Order Date: 09/11/24 Order Info: 0184-1 - CBCD Performed By: #### L 501.9520, L500.4050, L506.0400, L500.4100, L100.0100 #### [facility] [address] [place], [address] Calculated very low density lipoprotein (VLDL) cholesterol measurementOrdered By: Moiz Mueller on 01-20-2025 Calculated very low density lipoprotein (VLDL) cholesterol measurement 14 mg/dL 5-40 [facility] Carbon dioxide, total [Moles /volume] in Central venous bloodOrdered By: Moiz Mueller on 01-20-2025 CO2 [Moles/Vol] 25.9 mmol/L 21.0-32.0 [facility] Chloride assayOrdered By: Annabella Mueller on 01-20-2025 Chloride [Moles/Vol] 102 mmol/L 98-108 [facility] Comprehensive Metabolic Prof ilon 01-20-2025 Albumin [Mass/Vol] 4.1 g/dL Normal 3.4-4.8 [facility] Comment on above: Order Comment: Order Date: 09/11/24 Order Info: 0786-1 - CMP Order Info: [id number] - LIPID Order Info: 3016-3 - TSH Order Info: 3024-7 - T4F Performed By: #### L 501.9520, L500.4050, L506.0400, L500.4100, L100.0100 #### [facility] [address] [place], [address] Albumin/Globulin [Mass ratio] 1.3 {ratio} Normal 0.9-2.4 [facility] Comment on above: Order Comment: Order Date: 09/11/24 Order Info: 0786-1 - CMP Order Info: [id number] - LIPID Order Info: [id number] - TSH Order Info: 7 - T4F Performed By: #### L 501.9520, L500.4050, L506.0400, L500.4100, L100.0100 #### [facility] [address] [place], [address] ALK PHOS 89 U/L Normal 40-129 [facility] Comment on above: Order Comment: Order Date: 09/11/24 Order Info: 86-1 - CMP Order Info: [id number] - LIPID Order Info: [id number] - TSH Order Info: 7 - T4F Performed By: #### L 501.9520, L500.4050, L506.0400, L500.4100, L100.0100 #### [facility] [address] [place], [address] ALT [Catalytic activity/Vol] 15 U/L Normal <=46 [facility] Comment on above: Order Comment: Order Date: 09/11/24 Order Info: 785-1 - CMP Order Info: [id number] - LIPID Order Info: [id number] - TSH Order Info: 3024-01 - T4F Performed By: #### L 501.9520, L500.4050, L506.0400, L500.4100, L100.0100 #### [facility] [address] [place], [address] AST [Catalytic activity/Vol] 28 U/L Normal <=37 [facility] Comment on above: Order Comment: Order Date: 09/11/24 Order Info: 0786-1 - CMP Order Info: [id number] - LIPID Order Info: [id number] - TSH Order Info: 7 - T4F Performed By: #### L 501.9520, L500.4050, L506.0400, L500.4100, L100.0100 #### [facility] [address] [place], [address] Bilirubin [Mass/Vol] 0.64 mg/dL Normal 0.00-1.30 [facility] Comment on above: Order Comment: Order Date: 09/11/24 Order Info: 86-1 - CMP Order Info: [id number] - LIPID Order Info: 3 - TSH Order Info: 3024-7 - T4F Performed By: #### L 501.9520, L500.4050, L506.0400, L500.4100, L100.0100 #### [facility] [address] [place], [address] BUN/CRE 23.1 RATIO High 10-20 [facility] Comment on above: Order Comment: Order Date: 09/11/24 Order Info: 785-1 - CMP Order Info: [id number] - LIPID Order Info: 3 - TSH Order Info: 3024-7 - T4F Performed By: #### L 501.9520, L500.4050, L506.0400, L500.4100, L100.0100 #### [facility] [address] [place], [address] Calcium [Mass/Vol] 9.4 mg/dL Normal 7.6-11.0 [facility] Comment on above: Order Comment: Order Date: 09/11/24 Order Info: 785-1 - CMP Order Info: [id number] - LIPID Order Info: 3 - TSH Order Info: 3024-7 - T4F Performed By: #### L 501.9520, L500.4050, L506.0400, L500.4100, L100.0100 #### [facility] [address] [place], [address] Chloride [Moles/Vol] 102 mmol/L Normal 98-108 [facility] Comment on above: Order Comment: Order Date: 09/11/24 Order Info: 0786-1 - CMP Order Info: [id number] - LIPID Order Info: 3 - TSH Order Info: 3024-7 - T4F Performed By: #### L 501.9520, L500.4050, L506.0400, L500.4100, L100.0100 #### [facility] [address] [place], [address] CO2 [Moles/Vol] 25.9 mmol/L Normal 21.0-32.0 [facility] Comment on above: Order Comment: Order Date: 09/11/24 Order Info: 0786-1 - CMP Order Info: [id number] - LIPID Order Info: [id number] - TSH Order Info: 3024-7 - T4F Performed By: #### L 501.9520, L500.4050, L506.0400, L500.4100, L100.0100 #### [facility] [address] [place], [address] Creatinine [Mass/Vol] 1.20 mg/dL Normal 0.70-1.20 [facility] Comment on above: Order Comment: Order Date: 09/11/24 Order Info: 0786- - CMP Order Info: [id number] - LIPID Order Info: [id number] - TSH Order Info: 3024-7 - T4F Performed By: #### L 501.9520, L500.4050, L506.0400, L500.4100, L100.0100 #### [facility] [address] [place], [address] GAP 12 Normal 5-15 [facility] Comment on above: Order Comment: Order Date: 09/11/24 Order Info: 0786-1 - CMP Order Info: [id number] - LIPID Order Info: 3016-3 - TSH Order Info: 3024-7 - T4F Performed By: #### L 501.9520, L500.4050, L506.0400, L500.4100, L100.0100 #### [facility] [address] [place], [address] GFR/1.73 sq M.predicted among non-blacks MDRD (S/P/Bld) [Vol rate/Area] 62 mL/min/{1.73_m2} Normal >60 [facility] Comment on above: Order Comment: Order Date: 09/11/24 Order Info: 07-1 - CMP Order Info: [id number] - LIPID Order Info: 301-3 - TSH Order Info: 3024-7 - T4F Result Comment: mL/m in/1.73m2 CKD-EPI Creatinine Equation (2020) Performed By: #### L 501.9520, L500.4050, L506.0400, L500.4100, L100.0100 #### [facility] [address] [place], [address] Globulin (S) [Mass/Vol] 3.1 g/dL Normal 2.2-4.2 [facility] Comment on above: Order Comment: Order Date: 09/11/24 Order Info: 785- - CMP Order Info: - LIPID Order Info: 3 - TSH Order Info: 3024-7 - T4F Performed By: #### L 501.9520, L500.4050, L506.0400, L500.4100, L100.0100 #### [facility] [address] [place], [address] Glucose [Mass/Vol] 95 mg/dL Normal 70-99 [facility] Comment on above: Order Comment: Order Date: 09/11/24 Order Info: 07- - CMP Order Info: [id number] - LIPID Order Info: [id number] - TSH Order Info: 3024-7 - T4F Performed By: #### L 501.9520, L500.4050, L506.0400, L500.4100, L100.0100 #### [facility] [address] [place], [address] Potassium [Moles/Vol] 3.8 mmol/L Normal 3.3-5.1 [facility] Comment on above: Order Comment: Order Date: 09/11/24 Order Info: 07-1 - CMP Order Info: [id number] - LIPID Order Info: 3 - TSH Order Info: 4-7 - T4F Performed By: #### L 501.9520, L500.4050, L506.0400, L500.4100, L100.0100 #### [facility] [address] [place], [address] Sodium [Moles/Vol] 140 mmol/L Normal 133-145 [facility] Comment on above: Order Comment: Order Date: 09/11/24 Order Info: 785- - CMP Order Info: - LIPID Order Info: 3 - TSH Order Info: 7 - T4F Performed By: #### L 501.9520, L500.4050, L506.0400, L500.4100, L100.0100 #### [facility] [address] [place], [address] T PROT 7.2 g/dL Normal 5.9-8.4 [facility] Comment on above: Order Comment: Order Date: 09/11/24 Order Info: 785-07 - CMP Order Info: - LIPID Order Info: [id number] - TSH Order Info: 7 - T4F Performed By: #### L 501.9520, L500.4050, L506.0400, L500.4100, L100.0100 #### [facility] [address] [place], [address] Urea nitrogen [Mass/Vol] 28 mg/dL High 4-19 [facility] Comment on above: Order Comment: Order Date: 09/11/24 Order Info: 0786- - CMP Order Info: - LIPID Order Info: 3 - TSH Order Info: 3024-7 - T4F Performed By: #### L 501.9520, L500.4050, L506.0400, L500.4100, L100.0100 #### [facility] [address] [place], [address] Eosinophil percentageOrdered By: Moiz Mueller on 01-20-2025 Eosinophils/100 WBC (Bld) 3.7 % 0-5 [facility] Erythrocyte distribution wid th ratioOrdered By: Moiz Mueller on 01-20-2025 Erythrocyte distribution width (RBC) [Ratio] 13.1 % 11.6-14.6 [facility] Erythrocyte distribution wid th standard deviationOrdered By: Moiz Mueller on 01-20-2025 Erythrocyte distribution width (RBC) [Ratio] 44.9 fl High 35.1-43.9 [facility] Glomerular filtration rate ( GFR) estimation/1.73 sq m using serum, plasma, or whole bOrdered By: Moiz Mueller on 01-20-2025 GFR/1.73 sq M.predicted among non-blacks MDRD (S/P/Bld) [Vol rate/Area] 62 mL/min/{1.73_m2} >60 [facility] Comment on above: mL/min/1.73m2 CKD-EP I Creatinine Equation (2020) Hematocrit Auto (Bld) [Volum e fraction]Ordered By: Moiz Mueller on 01-20-2025 Hematocrit (Bld) [Volume fraction] 41.8 % 40-54 [facility] Hemoglobin measurementOrdere d By: Moiz Mueller on 01-20-2025 Hemoglobin (Bld) [Mass/Vol] 14.6 g/dL 13.0-16.5 [facility] Immature granulocytes/100 WB C Auto (Bld)Ordered By: Moiz Mueller on 01-20-2025 Immature granulocytes/100 WBC (Bld) 0.200 % 0.0-0.9 [facility] Comment on above: IG% - Immature Granu locytes (promyelocytes, myelocytes and metamyelocytes) > 1% indicates that a LEFT SHIFT is Present. Ketones Test strip Ql (U)Ord ered By: Moiz Mueller on 01-20-2025 Ketones Ql (U) Negative Negative [facility] LDL calc ser/plasOrdered By: Moiz Mueller on 01-20-2025 Cholesterol in LDL [Mass/Vol] 63 mg/dL [facility] Comment on above: Ibnemvmmfp=362-015 m g/dL & Higher Ompk=868 mg/dL or greater Laboratory - Chemistry and C hemistry - challengeOrdered By: Moiz Mueller on 01-20-2025 AST [Catalytic activity/Vol] 28 U/L <38 [facility] Lipid Profileon 01-20-2025 CHOL:HDL 2.37 Normal [facility] Comment on above: Order Comment: Order Date: 09/11/24 Order Info: 0786-1 - CMP Order Info: [id number] - LIPID Order Info: 3 - TSH Order Info: 3024-01 T4F Performed By: #### L 501.9520, L500.4050, L506.0400, L500.4100, L100.0100 #### [facility] [address] [place], [place], [id number] (377) Cholesterol [Mass/Vol] 132 mg/dL Normal <=200 [facility] Comment on above: Order Comment: Order Date: 09/11/24 Order Info: 07-1 - CMP Order Info: - LIPID Order Info: 3 - TSH Order Info: 3024-01 T4F Result Comment: Chol esterol level, Desirable <200 mg/dL Borderline high cholesterol 200-239 mg/dL High cholesterol >=240 mg/dL Recommendations of the NCEP Adult Treatment Panel for the following risk-cutoff thresholds for the [place] population. Performed By: #### L 501.9520, L500.4050, L506.0400, L500.4100, L100.0100 #### [facility] [address] [place], [place], [id number] Cholesterol in HDL [Mass/Vol] 56 mg/dL Normal [facility] Comment on above: Order Comment: Order Date: 09/11/24 Order Info: 0786-1 - CMP Order Info: [id number] - LIPID Order Info: 3 - TSH Order Info: 3024-01 - T4F Result Comment: Ana onal Cholesterol Education Program (NCEP) guidelines: <40 mg/dL: Low HDL-cholesterol (major risk factor for CHD) >= 60 mg/dL: High HDL-cholesterol (negative risk factor for CHD) HDL-cholesterol is affected by a number of factors, e.g. smoking, exercise, hormones, sex and age. Performed By: #### L 501.9520, L500.4050, L506.0400, L500.4100, L100.0100 #### [facility] [address] [place], [address] Cholesterol in LDL [Mass/Vol] 63 mg/dL Normal [facility] Comment on above: Order Comment: Order Date: 09/11/24 Order Info: 07- - CMP Order Info: [id number] - LIPID Order Info: [id number] - TSH Order Info: 3024-01 - T4F Result Comment: Bord etcyrp=813-022 mg/dL Higher Xkvd=898 mg/dL or greater Performed By: #### L 501.9520, L500.4050, L506.0400, L500.4100, L100.0100 #### [facility] [address] [place], [address] Cholesterol in VLDL [Mass/Vol] 14 mg/dL Normal 5-40 [facility] Comment on above: Order Comment: Order Date: 09/11/24 Order Info: 0786 - CMP Order Info: - LIPID Order Info: 3 - TSH Order Info: 3024-01 - T4F Performed By: #### L 501.9520, L500.4050, L506.0400, L500.4100, L100.0100 #### [facility] [address] [place], [address] Triglyceride [Mass/Vol] 69 mg/dL Normal [facility] Comment on above: Order Comment: Order Date: 09/11/24 Order Info: 0786 - CMP Order Info: [id number] - LIPID Order Info: 3 - TSH Order Info: 7 - T4F Result Comment: The drugs N-Acetylcysteine and Metamizole may falsely depress this assay. Normal range: <150 mg/dL Borderline High: 150-199 mg/dL High: 200-499 mg/dL Very High: >500 mg/dL Performed By: #### L 501.9520, L500.4050, L506.0400, L500.4100, L100.0100 #### [facility] [place], [address] MCV (mean corpuscular volume ) determinationOrdered By: Moiz Mueller on 01-20-2025 MCV (RBC) [Entitic vol] 93.1 fL 80-94 [facility] Mean corpuscular hemoglobin (MCH) determinationOrdered By: Moiz Mueller on 01-20-2025 MCH (RBC) [Entitic mass] 32.5 pg High 27.0-32.0 [facility] Mean corpuscular hemoglobin concentration (MCHC) determinationOrdered By: Moiz Mueller on 01-20-2025 MCHC (RBC) [Mass/Vol] 34.9 g/dL 32-36 [facility] Mean platelet volume determi nationOrdered By: Moiz Mueller on 01-20-2025 Platelet mean volume (Bld) [Entitic vol] 10.6 fL 6.2-12.0 [facility] Microscopic analysis of urin e for red blood cells (RBC)Ordered By: Moiz Mueller on 01-20-2025 Microscopic analysis of urine for red blood cells (RBC) 0-5 SEEN /hpf 0-5 [facility] Monocyte percentageOrdered B y: Moiz Mueller on 01-20-2025 Monocytes/100 WBC (Bld) 10.6 % High 0-10 [facility] Mucus LM Ql (Urine sed)Order ed By: Moiz Mueller on 01-20-2025 Mucus Ql (Urine sed) 0 SEEN /hpf [facility] Neutrophil percentageOrdered By: Moiz Mueller on 01-20-2025 Neutrophils/100 WBC (Bld) 55.8 % 47-70 [facility] Nitrite Test strip Ql (U)Ord ered By: Moiz Mueller on 01-20-2025 Nitrite Ql (U) Negative Negative [facility] Nucleated red blood cell per centageOrdered By: Moiz Mueller on 01-20-2025 Nucleated RBC/100 WBC (Bld) [Ratio] 0 % 0-5 [facility] Platelet countOrdered By: Annabella Mueller on 01-20-2025 Platelets (Bld) [#/Vol] 240 10*3/uL 150-450 [facility] Potassium measurement (mass/ volume)Ordered By: Moiz Mueller on 01-20-2025 Potassium (Unsp spec) [Mass/Vol] 3.8 mmol/L 3.3-5.1 [facility] Protein Test strip Ql (U)Ord ered By: Moiz Mueller on 01-20-2025 Protein Ql (U) 30 mg/dl High Negative [facility] RBC Auto (Bld) [#/Vol]Ordere d By: Moiz Mueller on 01-20-2025 RBC (Bld) [#/Vol] 4.49 10*6/uL Low 4.6-6.2 [facility] Screening total cholesterol/ high density lipoprotein (HDL) cholesterol ratioOrdered By: Moiz Mueller on 01-20-2025 Cholesterol.total/Safia sterol in HDL [Mass ratio] 2.37 {ratio} [facility] Serum creatinine measurement (mass/volume)Ordered By: Moiz Mueller on 01-20-2025 Creatinine [Mass/Vol] 1.20 mg/dL 0.70-1.20 [facility] Serum globulin measurementOr dered By: Moiz Mueller on 01-20-2025 Globulin (S) [Mass/Vol] 3.1 g/dL 2.2-4.2 [facility] Serum glucose measurement (m ass/volume)Ordered By: Moiz Mueller on 01-20-2025 Glucose [Mass/Vol] 95 mg/dL 70-99 [facility] Serum or plasma alanine montes de oca otransferase (ALT) measurementOrdered By: Moiz Mueller on 01-20-2025 ALT [Catalytic activity/Vol] 15 U/L <47 [facility] Serum or plasma albumin dulce urement (mass/volume)Ordered By: Moiz Mueller on 01-20-2025 Albumin [Mass/Vol] 4.1 g/dL 3.4-4.8 [facility] Serum or plasma albumin/glob ulin mass ratioOrdered By: Moiz Mueller on 01-20-2025 Albumin/Globulin [Mass ratio] 1.3 {ratio} 0.9-2.4 [facility] Serum or plasma alkaline anabell sphatase measurementOrdered By: Moiz Mueller on 01-20-2025 ALP [Catalytic activity/Vol] 89 U/L 40-129 [facility] Serum or plasma calcium dulce urement (mass/volume)Ordered By: Moiz Mueller on 01-20-2025 Calcium [Mass/Vol] 9.4 mg/dL 7.6-11.0 [facility] Serum or plasma cholesterol in HDL measurement (mass/volume)Ordered By: Moiz Mueller on 01-20-2025 Cholesterol in HDL [Mass/Vol] 56 mg/dL >40 [facility] Comment on above: National Cholesterol Education Program (NCEP) guidelines:<40 mg/dL: Low HDL-cholesterol (major risk factor for CHD)>= 60 mg/dL: High HDL-cholesterol (negative risk factor for CHD)HDL-cholesterol is affected by a number of factors, e.g. smoking, exercise, hormones, sex and age. Serum or plasma cholesterol measurement (mass/volume)Ordered By: Moiz Mueller on 01-20-2025 Cholesterol [Mass/Vol] 132 mg/dL <201 [facility] Comment on above: Cholesterol level, D esirable <200 mg/dLBorderline high cholesterol 200-239 mg/dLHigh cholesterol >=240 mg/dLRecommendations of the NCEP Adult Treatment Panel for the following risk-cutoff thresholds for the [place] population. Serum or plasma urea nitroge n measurement (mass/volume)Ordered By: Moiz Mueller on 01-20-2025 Urea nitrogen [Mass/Vol] 28 mg/dL High 4-19 [facility] Sodium levelOrdered By: Moiz Mueller on 01-20-2025 Sodium [Moles/Vol] 140 mmol/L 133-145 [facility] Squamous epithelial cells de tection in urine sediment by light microscopyOrdered By: Moiz Mueller on 01-20-2025 Epithelial cells.squamous LM Ql (Urine sed) 0-5 SEEN /hpf 0-5 [facility] T4 Free Directon 01-20-2025 T4 FREE DIRECT 1.50 ng/dL High 0.76-1.46 [facility] Comment on above: Order Comment: Order Date: 09/11/24Order Info: [id number] - CMPOrder Info: [id number] - LIPIDOrder Info: [id number] - TSHOrder Info: [id number] - T4F Performed By: #### L 501.9520, L500.4050, L506.0400, L500.4100, L100.0100 ####[facility] [address] [place], [place], [id number] T4 freeOrdered By: Moiz pina on 01-20-2025 Free T4 [Mass/Vol] 1.50 ng/dL High 0.76-1.46 [facility] TSH DL <= 0.005 mIU/L QnOrde red By: Moiz Mueller on 01-20-2025 TSH Qn 2.150 uIU/mL 0.300-4.200 [facility] Thyroid Stim Hormone (TSH)on 01-20-2025 TSH 2.150 uIU/mL Normal 0.300-4.200 [facility] Comment on above: Order Comment: Order Date: 09/11/24Order Info: [id number] - CMPOrder Info: [id number] - LIPIDOrder Info: [id number] - TSHOrder Info: [id number] - T4F Performed By: #### L 501.9520, L500.4050, L506.0400, L500.4100, L100.0100 ####[facility] [address] [facility] [address] [place], [place], [address] Total proteinOrdered By: Casey uMeller on 01-20-2025 Protein [Mass/Vol] 7.2 g/dL 5.9-8.4 [facility] Triglycerides measurementOrd ered By: Moiz Mueller on 01-20-2025 Triglyceride [Mass/Vol] 69 mg/dL <199 [facility] Comment on above: The drugs N-Acetylcy steine and Metamizole may falsely depress this assay. Normal range: <150 mg/dLBorderline High: 150-199 mg/dLHigh: 200-499 mg/dLVery High: >500 mg/dL Urinalysis, Completeon 01-20 EPI,SQUAMOUS 0-5 SEEN Normal 0-5 [facility] Comment on above: Order Comment: Urine , Random Performed By: #### L 506.1001, L400.0001 ####[facility] [address] [place], [address] RBC 0-5 SEEN Normal 0-5 [facility] Comment on above: Order Comment: Urine , Random Performed By: #### L 506.1001, L400.0001 ####[facility] [address] [place], [address] WBC 25-50 SEEN Normal 0-5 [facility] Comment on above: Order Comment: Urine , Random Performed By: #### L 506.1001, L400.0001 ####[facility] [address] [place], [address] BACTERIA 0 SEEN Normal None Seen [facility] Comment on above: Order Comment: Urine , Random Performed By: #### L 506.1001, L400.0001 ####[facility] [address] [place], [address] Mucus Ql (Urine sed) 0 SEEN Normal [facility] Comment on above: Order Comment: Urine , Random Performed By: #### L 506.1001, L400.0001 ####[facility] [address] [place], [address] Urine clarityOrdered By: Casey Mueller on 01-20-2025 Clarity (U) Sl. Cloudy Clear [facility] Urine color determinationOrd ered By: Moiz Mueller on 01-20-2025 Color (U) Yellow Yellow [facility] Urine glucose detectionOrder ed By: Moiz Mueller on 01-20-2025 Glucose Ql (U) Normal mg/dl Normal [facility] Urine leukocyte esterase det ection by dipstickOrdered By: Moiz Mueller on 01-20-2025 Leukocyte esterase Test strip Ql (U) 500 /ul High Negative [facility] Urine pHOrdered By: Moiz murphy on 01-20-2025 pH (U) 7.0 [pH] 5.0 - 8.0 [facility] Urine sediment bacteria coun t by microscopy (number/high power field)Ordered By: Moiz Mueller on 01-20-2025 Bacteria LM.HPF (Urine sed) [#/Area] 0 /[HPF] None Seen [facility] Urine specific gravity measu rementOrdered By: Moiz Mueller on 01-20-2025 Specific gravity (U) [Rel density] 1.010 1.002-1.030 [facility] Urine urobilinogen measureme ntOrdered By: Moiz Mueller on 01-20-2025 Urobilinogen Ql (U) Normal mg/dl Normal [facility] Vitamin D,25 Hydroxyon 01-20 Vitamin D 25-OH 44.0 ng/mL Normal 30-100 [facility] Comment on above: Order Comment: Order Date: 09/11/24Order Info: [id number] - CMPOrder Info: [id number] - LIPIDOrder Info: [id number] - TSHOrder Info: [id number] - T4F Result Comment: Rose min D Status Deficiency: <20 ng/mL (50nmol/L) Insufficiency: 20-30 ng/mL (50-75 nmol/L) Sufficiency: 30-100 ng/mL (75-250 nmol/L) Toxicity: >100 ng/mL (>250 nmol/L) Performed By: #### L 506.1001, L400.0001 ####[facility] [address] [place], [address] White blood cell (WBC) count Ordered By: Moiz Mueller on 01-20-2025 WBC (Bld) [#/Vol] 5.7 10*3/uL 4.4-11.0 [facility] White blood cell countOrdere d By: Moiz Mueller on 01-20-2025 White blood cell count 25-50 SEEN /hpf 0-5 [facility] CNOVon 11-14-2024 CNOV Office Visit (DMFPMN ) MESSI VILLA ([id number]) 1945 M Date Time Provider Department 11/14/24 1:00 PM [facility] During your visit today, we recorded the following information about you: Kylah Dimas, DDS 11/14/2024 3:03 PM Signed [facility], Oral Surgery, AND Maxillofacial Prosthetics Date: [...] Retrodiskal ti (more content not included)... Normal [facility] Basic Metabolic Profile (BMP )on 09-10-2024 BUN/CRE 23.4 RATIO High 10-20 [facility] Comment on above: Order Comment: Order Date: 09/09/24 Order Info: 0667-1 - BMP Performed By: #### L 500.2500, L100.0100, L501.9985 #### [facility] [address] [place], [address] CA,Total 8.9 mg/dL Normal 8.5-10.1 [facility] Comment on above: Order Comment: Order Date: 09/09/24 Order Info: 0667-1 - BMP Performed By: #### L 500.2500, L100.0100, L501.9985 #### [facility] [address] [place], [address] Chloride [Moles/Vol] 101 mmol/L Normal 98-107 [facility] Comment on above: Order Comment: Order Date: 09/09/24 Order Info: 0667-1 - BMP Performed By: #### L 500.2500, L100.0100, L501.9985 #### [facility] [address] [place], [address] CO2 [Moles/Vol] 27.0 mmol/L Normal 21.0-32.0 [facility] Comment on above: Order Comment: Order Date: 09/09/24 Order Info: 0667-1 - BMP Performed By: #### L 500.2500, L100.0100, L501.9985 #### [facility] [address] [place], [address] Creatinine [Mass/Vol] 1.28 mg/dL Normal 0.70-1.30 [facility] Comment on above: Order Comment: Order Date: 09/09/24 Order Info: 0667-1 - BMP Result Comment: The validity of the calculated GFR GFRAA in patients over 70 years has not been determined. Clinical correlation is essential. Performed By: #### L 500.2500, L100.0100, L501.9985 #### [facility] [address] [place], [address] EST GFR - AA 70 mL/min Normal >60 [facility] Comment on above: Order Comment: Order Date: 09/09/24 Order Info: 0667-1 - BMP Result Comment: Afri can [place] GFR Calc Performed By: #### L 500.2500, L100.0100, L501.9985 #### [facility] [address] [place], [address] GAP 7 Normal 5-15 [facility] Comment on above: Order Comment: Order Date: 09/09/24 Order Info: 0667-1 - BMP Performed By: #### L 500.2500, L100.0100, L501.9985 #### [facility] [address] [place], [address] GFR/1.73 sq M.predicted among non-blacks MDRD (S/P/Bld) [Vol rate/Area] 58 mL/min/{1.73_m2} Low >60 [facility] Comment on above: Order Comment: Order Date: 09/09/24 Order Info: 0667-1 - BMP Result Comment: Non- GFR Calc Performed By: #### L 500.2500, L100.0100, L501.9985 #### [facility] [address] [place], [address] Glucose [Mass/Vol] 114 mg/dL High 74-106 [facility] Comment on above: Order Comment: Order Date: 09/09/24 Order Info: 0667-1 - BMP Result Comment: Fast ing Glucose result from 100 to 125 mg/dL suggests IMPAIRED HOMEOSTASIS per A.D.A. criteria. Performed By: #### L 500.2500, L100.0100, L501.9985 #### [facility] [address] [place], [address] Potassium [Moles/Vol] 3.7 mmol/L Normal 3.5-5.1 [facility] Comment on above: Order Comment: Order Date: 09/09/24 Order Info: 0667 - BMP Performed By: #### L 500.2500, L100.0100, L501.9985 #### [facility] [address] [place], [address] Sodium [Moles/Vol] 135 mmol/L Low 136-145 [facility] Comment on above: Order Comment: Order Date: 09/09/24 Order Info: 0667- - BMP Performed By: #### L 500.2500, L100.0100, L501.9985 #### [facility] [address] [place], [address] Urea nitrogen [Mass/Vol] 30 mg/dL High 7-18 [facility] Comment on above: Order Comment: Order Date: 09/09/24 Order Info: 0667- - BMP Performed By: #### L 500.2500, L100.0100, L501.9985 #### [facility] [address] [place], [address] CBC W/Diff, Automatedon 08-30 Absolute Lymph 1.60 X10 3/uL Normal 0.83-4.51 [facility] Comment on above: Order Comment: Order Date: 09/09/24 Order Info: 0184-1 - CBCD Performed By: #### L 500.2500, L100.0100, L501.9985 #### [facility] [address] [place], [address] Absolute Neut 5.1 X10 3/uL Normal 2.0-7.7 [facility] Comment on above: Order Comment: Order Date: 09/09/24 Order Info: 0184-1 - CBCD Performed By: #### L 500.2500, L100.0100, L501.9985 #### [facility] [address] [place], [address] Basophils/100 WBC (Bld) 0.1 % Normal 0-1 [facility] Comment on above: Order Comment: Order Date: 09/09/24 Order Info: 0184-1 - CBCD Performed By: #### L 500.2500, L100.0100, L501.9985 #### [facility] [address] [place], [address] Eosinophils/100 WBC (Bld) 4.1 % Normal 0-5 [facility] Comment on above: Order Comment: Order Date: 09/09/24 Order Info: 0184-1 - CBCD Performed By: #### L 500.2500, L100.0100, L501.9985 #### [facility] [address] [place], [address] Erythrocyte distribution width (RBC) [Ratio] 13.1 % Normal 11.6-14.6 [facility] Comment on above: Order Comment: Order Date: 09/09/24 Order Info: 0184-1 - CBCD Performed By: #### L 500.2500, L100.0100, L501.9985 #### [facility] [address] [place], [address] Hematocrit (Bld) [Volume fraction] 41.8 % Normal 40-54 [facility] Comment on above: Order Comment: Order Date: 09/09/24 Order Info: 0184- - CBCD Performed By: #### L 500.2500, L100.0100, L501.9985 #### [facility] [address] [place], [address] Hemoglobin (Bld) [Mass/Vol] 13.9 g/dL Normal 13.0-16.5 [facility] Comment on above: Order Comment: Order Date: 09/09/24 Order Info: 018- - CBCD Performed By: #### L 500.2500, L100.0100, L501.9985 #### [facility] [address] [place], [address] IG% 0.400 Normal 0.0-0.9 [facility] Comment on above: Order Comment: Order Date: 09/09/24 Order Info: 018- - CBCD Result Comment: IG% - Immature Granulocytes (promyelocytes, myelocytes and metamyelocytes) > 1% indicates that a LEFT SHIFT is Present. Performed By: #### L 500.2500, L100.0100, L501.9985 #### [facility] [address] [place], [address] Lymphocytes/100 WBC (Bld) 19.8 % Normal 19-41 [facility] Comment on above: Order Comment: Order Date: 09/09/24 Order Info: 0184- - CBCD Performed By: #### L 500.2500, L100.0100, L501.9985 #### [facility] [address] [place], [address] MCH (RBC) [Entitic mass] 31.7 pg Normal 27.0-32.0 [facility] Comment on above: Order Comment: Order Date: 09/09/24 Order Info: 0184- - CBCD Performed By: #### L 500.2500, L100.0100, L501.9985 #### [facility] [address] [place], [address] MCHC (RBC) [Mass/Vol] 33.3 g/dL Normal 32-36 [facility] Comment on above: Order Comment: Order Date: 09/09/24 Order Info: 0184-1 - CBCD Performed By: #### L 500.2500, L100.0100, L501.9985 #### [facility] [address] [place], [address] MCV (RBC) [Entitic vol] 95.2 fL High 80-94 [facility] Comment on above: Order Comment: Order Date: 09/09/24 Order Info: 0184-1 - CBCD Performed By: #### L 500.2500, L100.0100, L501.9985 #### [facility] [address] [place], [address] Monocytes/100 WBC (Bld) 12.0 % High 0-10 [facility] Comment on above: Order Comment: Order Date: 09/09/24 Order Info: 0184-1 - CBCD Performed By: #### L 500.2500, L100.0100, L501.9985 #### [facility] [address] [place], [address] Neutrophils/100 WBC (Bld) 63.6 % Normal 47-70 [facility] Comment on above: Order Comment: Order Date: 09/09/24 Order Info: 0184-1 - CBCD Performed By: #### L 500.2500, L100.0100, L501.9985 #### [facility] [address] [place], [address] Nucleated RBC (Bld) [#/Vol] 0 10*3/uL Normal 0-5 [facility] Comment on above: Order Comment: Order Date: 09/09/24 Order Info: 0184-1 - CBCD Performed By: #### L 500.2500, L100.0100, L501.9985 #### [facility] [address] [place], [address] Platelet mean volume (Bld) [Entitic vol] 11.1 fL Normal 6.2-12.0 [facility] Comment on above: Order Comment: Order Date: 09/09/24 Order Info: 0184- - CBCD Performed By: #### L 500.2500, L100.0100, L501.9985 #### [facility] [address] [place], [address] Platelets (Bld) [#/Vol] 225 10*3/uL Normal 150-450 [facility] Comment on above: Order Comment: Order Date: 09/09/24 Order Info: 0184- - CBCD Performed By: #### L 500.2500, L100.0100, L501.9985 #### [facility] [address] [place], [address] RBC (Bld) [#/Vol] 4.39 10*6/uL Low 4.6-6.2 [facility] Comment on above: Order Comment: Order Date: 09/09/24 Order Info: 0184- - CBCD Performed By: #### L 500.2500, L100.0100, L501.9985 #### [facility] [address] [place], [address] RDW SD 46.3 fl High 35.1-43.9 [facility] Comment on above: Order Comment: Order Date: 09/09/24 Order Info: 0184-1 - CBCD Performed By: #### L 500.2500, L100.0100, L501.9985 #### [facility] [address] [place], [address] WBC (Bld) [#/Vol] 8.1 10*3/uL Normal 4.4-11.0 [facility] Comment on above: Order Comment: Order Date: 09/09/24 Order Info: 0184-1 - CBCD Performed By: #### L 500.2500, L100.0100, L501.9985 #### [facility] [address] [place], [address] Hemoglobin A1con 09-10-2024 HbA1c (Bld) [Mass fraction] 6.2 % High 3.8-5.6 [facility] Comment on above: Order Comment: Order Date: 09/09/24 Order Info: 4548-4 - A1C Result Comment: Norm al < 5.7 % Prediabetic 5.7 - 6.4 % Diabetic >or= 6.5 % Please note range changes. Performed By: #### L 500.2500, L100.0100, L501.9985 #### [facility] [address] [place], [address] Hemoglobin A1con 09-07-2024 HbA1c (Bld) [Mass fraction] 6.0 % High 3.8-5.6 [facility] Comment on above: Order Comment: Order Date: 05/16/24Order Info: 4548-4 - A1C Result Comment: Norm al < 5.7 % Prediabetic 5.7 - 6.4 % Diabetic >or= 6.5 % Please note range changes. Performed By: #### L 501.9985, L500.4050, L501.9520, L506.0400, L100.0100, L500.4100 ####[facility] [address] [place], [address] CBC W/Diff, Automatedon Absolute Lymph 1.01 X10 3/uL Normal 0.83-4.51 [facility] Comment on above: Order Comment: Order Date: 05/16/24Order Info: 0184-1 - CBCD Performed By: #### L 501.9985, L500.4050, L501.9520, L506.0400, L100.0100, L500.4100 ####[facility] [address] [place], [address] Absolute Neut 14.3 X10 3/uL High 2.0-7.7 [facility] Comment on above: Order Comment: Order Date: 05/16/24Order Info: 0184-1 - CBCD Performed By: #### L 501.9985, L500.4050, L501.9520, L506.0400, L100.0100, L500.4100 ####[facility] [address] [place], [address] Basophils/100 WBC (Bld) 0.1 % Normal 0-1 [facility] Comment on above: Order Comment: Order Date: 05/16/24Order Info: 018-1 - CBCD Performed By: #### L 501.9985, L500.4050, L501.9520, L506.0400, L100.0100, L500.4100 ####[facility] [address] [place], [address] Eosinophils/100 WBC (Bld) 0.0 % Normal 0-5 [facility] Comment on above: Order Comment: Order Date: 05/16/24Order Info: 018-1 - CBCD Performed By: #### L 501.9985, L500.4050, L501.9520, L506.0400, L100.0100, L500.4100 ####[facility] [address] [place], [address] Erythrocyte distribution width (RBC) [Ratio] 13.4 % Normal 11.6-14.6 [facility] Comment on above: Order Comment: Order Date: 05/16/24Order Info: 0184-1 - CBCD Performed By: #### L 501.9985, L500.4050, L501.9520, L506.0400, L100.0100, L500.4100 ####[facility] [address] [place], [address] Hematocrit (Bld) [Volume fraction] 40.6 % Normal 40-54 [facility] Comment on above: Order Comment: Order Date: 05/16/24Order Info: 0184-1 - CBCD Performed By: #### L 501.9985, L500.4050, L501.9520, L506.0400, L100.0100, L500.4100 ####[facility] [address] [place], [address] Hemoglobin (Bld) [Mass/Vol] 14.3 g/dL Normal 13.0-16.5 [facility] Comment on above: Order Comment: Order Date: 05/16/24Order Info: 018- - CBCD Performed By: #### L 501.9985, L500.4050, L501.9520, L506.0400, L100.0100, L500.4100 ####[facility] [address] [place], [address] IG% 0.500 Normal 0.0-0.9 [facility] Comment on above: Order Comment: Order Date: 05/16/24Order Info: 018- - CBCD Result Comment: IG% - Immature Granulocytes (promyelocytes, myelocytes and metamyelocytes) > 1% indicates that a LEFT SHIFT is Present. Performed By: #### L 501.9985, L500.4050, L501.9520, L506.0400, L100.0100, L500.4100 ####[facility] [address] [place], [address] Lymphocytes/100 WBC (Bld) 6.3 % Low 19-41 [facility] Comment on above: Order Comment: Order Date: 05/16/24Order Info: 0184-1 - CBCD Performed By: #### L 501.9985, L500.4050, L501.9520, L506.0400, L100.0100, L500.4100 ####[facility] [address] [place], [address] MCH (RBC) [Entitic mass] 32.6 pg High 27.0-32.0 [facility] Comment on above: Order Comment: Order Date: 05/16/24Order Info: 0184-1 - CBCD Performed By: #### L 501.9985, L500.4050, L501.9520, L506.0400, L100.0100, L500.4100 ####[facility] [address] [place], [address] MCHC (RBC) [Mass/Vol] 35.2 g/dL Normal 32-36 [facility] Comment on above: Order Comment: Order Date: 05/16/24Order Info: 018- - CBCD Performed By: #### L 501.9985, L500.4050, L501.9520, L506.0400, L100.0100, L500.4100 ####[facility] [address] [place], [address] MCV (RBC) [Entitic vol] 92.7 fL Normal 80-94 [facility] Comment on above: Order Comment: Order Date: 05/16/24Order Info: 018- - CBCD Performed By: #### L 501.9985, L500.4050, L501.9520, L506.0400, L100.0100, L500.4100 ####[facility] [address] [place], [address] Monocytes/100 WBC (Bld) 3.8 % Normal 0-10 [facility] Comment on above: Order Comment: Order Date: 05/16/24Order Info: 018-1 - CBCD Performed By: #### L 501.9985, L500.4050, L501.9520, L506.0400, L100.0100, L500.4100 ####[facility] [address] [place], [address] Neutrophils/100 WBC (Bld) 89.3 % High 47-70 [facility] Comment on above: Order Comment: Order Date: 05/16/24Order Info: 0184-1 - CBCD Performed By: #### L 501.9985, L500.4050, L501.9520, L506.0400, L100.0100, L500.4100 ####[facility] [address] [place], [address] Nucleated RBC (Bld) [#/Vol] 0 10*3/uL Normal 0-5 [facility] Comment on above: Order Comment: Order Date: 05/16/24Order Info: 0184-1 - CBCD Performed By: #### L 501.9985, L500.4050, L501.9520, L506.0400, L100.0100, L500.4100 ####[facility] [address] [place], [address] Platelet mean volume (Bld) [Entitic vol] 10.2 fL Normal 6.2-12.0 [facility] Comment on above: Order Comment: Order Date: 05/16/24Order Info: 0184-1 - CBCD Performed By: #### L 501.9985, L500.4050, L501.9520, L506.0400, L100.0100, L500.4100 ####[facility] [address] [place], [address] Platelets (Bld) [#/Vol] 248 10*3/uL Normal 150-450 [facility] Comment on above: Order Comment: Order Date: 05/16/24Order Info: 0184-1 - CBCD Performed By: #### L 501.9985, L500.4050, L501.9520, L506.0400, L100.0100, L500.4100 ####[facility] [address] [place], [address] RBC (Bld) [#/Vol] 4.38 10*6/uL Low 4.6-6.2 [facility] Comment on above: Order Comment: Order Date: 05/16/24Order Info: 018-1 - CBCD Performed By: #### L 501.9985, L500.4050, L501.9520, L506.0400, L100.0100, L500.4100 ####[facility] [address] [place], [address] RDW SD 45.5 fl High 35.1-43.9 [facility] Comment on above: Order Comment: Order Date: 05/16/24Order Info: 018- - CBCD Performed By: #### L 501.9985, L500.4050, L501.9520, L506.0400, L100.0100, L500.4100 ####[facility] [address] [place], [address] WBC (Bld) [#/Vol] 16.0 10*3/uL High 4.4-11.0 [facility] Comment on above: Order Comment: Order Date: 05/16/24Order Info: 018- - CBCD Performed By: #### L 501.9985, L500.4050, L501.9520, L506.0400, L100.0100, L500.4100 ####[facility] [address] [place], [address] Comprehensive Metabolic Prof ilon 09-05-2024 Albumin [Mass/Vol] 3.6 g/dL Normal 3.2-5.0 [facility] Comment on above: Order Comment: Order Date: 05/16/24Order Info: 0786-1 - CMPOrder Info: [id number] - LIPIDOrder Info: [id number] - TSHOrder Info: 3024-7 - T4F Performed By: #### L 501.9985, L500.4050, L501.9520, L506.0400, L100.0100, L500.4100 ####[facility] [address] [place], [address] Albumin/Globulin [Mass ratio] 0.9 {ratio} Normal 0.9-2.4 [facility] Comment on above: Order Comment: Order Date: 05/16/24Order Info: 785- - CMPOrder Info: [id number] - LIPIDOrder Info: [id number] - TSHOrder Info: 7 - T4F Performed By: #### L 501.9985, L500.4050, L501.9520, L506.0400, L100.0100, L500.4100 ####[facility] [address] [place], [address] ALK P 91 U/L Normal 45-117 [facility] Comment on above: Order Comment: Order Date: 05/16/24Order Info: 785-07 - CMPOrder Info: - LIPIDOrder Info: [id number] - TSHOrder Info: 7 - T4F Performed By: #### L 501.9985, L500.4050, L501.9520, L506.0400, L100.0100, L500.4100 ####[facility] [address] [place], [address] ALT [Catalytic activity/Vol] 25 U/L Normal 16-61 [facility] Comment on above: Order Comment: Order Date: 05/16/24Order Info: 785-07 - CMPOrder Info: - LIPIDOrder Info: [id number] - TSHOrder Info: 7 - T4F Performed By: #### L 501.9985, L500.4050, L501.9520, L506.0400, L100.0100, L500.4100 ####[facility] [address] [place], [address] AST [Catalytic activity/Vol] 20 U/L Normal 15-37 [facility] Comment on above: Order Comment: Order Date: 05/16/24Order Info: 785- - CMPOrder Info: - LIPIDOrder Info: [id number] - TSHOrder Info: 3024-7 - T4F Performed By: #### L 501.9985, L500.4050, L501.9520, L506.0400, L100.0100, L500.4100 ####[facility] [address] [place], [address] Bilirubin [Mass/Vol] 0.50 mg/dL Normal 0.20-1.00 [facility] Comment on above: Order Comment: Order Date: 05/16/24Order Info: 785- - CMPOrder Info: [id number] - LIPIDOrder Info: 3 - TSHOrder Info: 7 - T4F Result Comment: For patients on eltrombopag therapy, use of Dimension [place] TBIL is not recommended. Performed By: #### L 501.9985, L500.4050, L501.9520, L506.0400, L100.0100, L500.4100 ####[facility] [address] [place], [address] BUN/CRE 31.7 RATIO High 10-20 [facility] Comment on above: Order Comment: Order Date: 05/16/24Order Info: 785- - CMPOrder Info: [id number] - LIPIDOrder Info: 3 - TSHOrder Info: 7 - T4F Performed By: #### L 501.9985, L500.4050, L501.9520, L506.0400, L100.0100, L500.4100 ####[facility] [address] [place], [address] CA,Total 9.3 mg/dL Normal 8.5-10.1 [facility] Comment on above: Order Comment: Order Date: 05/16/24Order Info: 785-1 - CMPOrder Info: [id number] - LIPIDOrder Info: 63 - TSHOrder Info: [id number] - T4F Performed By: #### L 501.9985, L500.4050, L501.9520, L506.0400, L100.0100, L500.4100 ####[facility] [address] [place], [address] Chloride [Moles/Vol] 103 mmol/L Normal 98-107 [facility] Comment on above: Order Comment: Order Date: 05/16/24Order Info: 0786-1 - CMPOrder Info: [id number] - LIPIDOrder Info: [id number] - TSHOrder Info: 3024-7 - T4F Performed By: #### L 501.9985, L500.4050, L501.9520, L506.0400, L100.0100, L500.4100 ####[facility] [address] [place], [address] CO2 [Moles/Vol] 28.0 mmol/L Normal 21.0-32.0 [facility] Comment on above: Order Comment: Order Date: 05/16/24Order Info: 785- - CMPOrder Info: [id number] - LIPIDOrder Info: 3 - TSHOrder Info: 3024-7 - T4F Performed By: #### L 501.9985, L500.4050, L501.9520, L506.0400, L100.0100, L500.4100 ####[facility] [address] [place], [address] Creatinine [Mass/Vol] 1.42 mg/dL High 0.70-1.30 [facility] Comment on above: Order Comment: Order Date: 05/16/24Order Info: 86-1 - CMPOrder Info: [id number] - LIPIDOrder Info: [id number] - TSHOrder Info: 3024-7 - T4F Result Comment: The validity of the calculated GFR GFRAA in patients over 70 years has not been determined. Clinical correlation is essential. Performed By: #### L 501.9985, L500.4050, L501.9520, L506.0400, L100.0100, L500.4100 ####[facility] [address] [place], [address] EST GFR - AA 62 mL/min Normal >60 [facility] Comment on above: Order Comment: Order Date: 05/16/24Order Info: 785- - CMPOrder Info: [id number] - LIPIDOrder Info: 3 - TSHOrder Info: 7 - T4F Result Comment: Afri can [place]uvian GFR Calc Performed By: #### L 501.9985, L500.4050, L501.9520, L506.0400, L100.0100, L500.4100 ####[facility] [address] [place], [address] GAP 7 Normal 5-15 [facility] Comment on above: Order Comment: Order Date: 05/16/24Order Info: 785-07 - CMPOrder Info: [id number] - LIPIDOrder Info: 3 - TSHOrder Info: [id number] - T4F Performed By: #### L 501.9985, L500.4050, L501.9520, L506.0400, L100.0100, L500.4100 ####[facility] [address] [place], [address] GFR/1.73 sq M.predicted among non-blacks MDRD (S/P/Bld) [Vol rate/Area] 51 mL/min/{1.73_m2} Low >60 [facility] Comment on above: Order Comment: Order Date: 05/16/24Order Info: 785-07 - CMPOrder Info: [id number] - LIPIDOrder Info: 3 - TSHOrder Info: 3027 - T4F Result Comment: Non- GFR Calc Performed By: #### L 501.9985, L500.4050, L501.9520, L506.0400, L100.0100, L500.4100 ####[facility] [address] [place], [address] Globulin (S) [Mass/Vol] 4.0 g/dL Normal 2.2-4.2 [facility] Comment on above: Order Comment: Order Date: 05/16/24Order Info: 785- - CMPOrder Info: - LIPIDOrder Info: [id number] - TSHOrder Info: 7 - T4F Performed By: #### L 501.9985, L500.4050, L501.9520, L506.0400, L100.0100, L500.4100 ####[facility] [address] [place], [address] Glucose [Mass/Vol] 181 mg/dL High 74-106 [facility] Comment on above: Order Comment: Order Date: 05/16/24Order Info: 785-07 - CMPOrder Info: - LIPIDOrder Info: [id number] - TSHOrder Info: 7 - T4F Result Comment: Fast ing Glucose result greater than or equal to 126 mg/dL suggests DIABETES MELLITUS per A.D.A. criteria. Performed By: #### L 501.9985, L500.4050, L501.9520, L506.0400, L100.0100, L500.4100 ####[facility] [address] [place], [address] Potassium [Moles/Vol] 3.7 mmol/L Normal 3.5-5.1 [facility] Comment on above: Order Comment: Order Date: 05/16/24Order Info: 785-07 - CMPOrder Info: - LIPIDOrder Info: 3 - TSHOrder Info: 7 - T4F Performed By: #### L 501.9985, L500.4050, L501.9520, L506.0400, L100.0100, L500.4100 ####[facility] [address] [place], [address] Sodium [Moles/Vol] 138 mmol/L Normal 136-145 [facility] Comment on above: Order Comment: Order Date: 05/16/24Order Info: 785-07 - CMPOrder Info: - LIPIDOrder Info: [id number] - TSHOrder Info: 3024-01 - T4F Performed By: #### L 501.9985, L500.4050, L501.9520, L506.0400, L100.0100, L500.4100 ####[facility] [address] [place], [address] T PROT 7.6 g/dL Normal 6.4-8.2 [facility] Comment on above: Order Comment: Order Date: 05/16/24Order Info: 785- - CMPOrder Info: - LIPIDOrder Info: [id number] - TSHOrder Info: 3024-01 - T4F Performed By: #### L 501.9985, L500.4050, L501.9520, L506.0400, L100.0100, L500.4100 ####[facility] [address] [place], [address] Urea nitrogen [Mass/Vol] 45 mg/dL High 02-13 [facility] Comment on above: Order Comment: Order Date: 05/16/24Order Info: 785-07 - CMPOrder Info: - LIPIDOrder Info: [id number] - TSHOrder Info: 3024-01 - T4F Performed By: #### L 501.9985, L500.4050, L501.9520, L506.0400, L100.0100, L500.4100 ####[facility] [address] [place], [address] Lipid Profileon 09-05-2024 Cholesterol [Mass/Vol] 138 mg/dL Normal 200 [facility] Comment on above: Order Comment: Order Date: 05/16/24Order Info: 785- - CMPOrder Info: [id number] - LIPIDOrder Info: [id number] - TSHOrder Info: 3024-01 - T4F Result Comment: <200 mg/dL Desirable 200-240 mg/dL Borderline >240 mg/dL High Risk Performed By: #### L 501.9985, L500.4050, L501.9520, L506.0400, L100.0100, L500.4100 ####[facility] [address] [place], [address] Cholesterol in HDL [Mass/Vol] 74 mg/dL Normal [facility] Comment on above: Order Comment: Order Date: 05/16/24Order Info: 86- - CMPOrder Info: - LIPIDOrder Info: [id number] - TSHOrder Info: 7 - T4F Result Comment: The drugs N-Acetylcysteine and Metamizole may falsely depress this assay. Reference Range HDL <40 mg/dL Low HDL Cholesterol HDL >or= 60 mg/dL High HDL Cholesterol Performed By: #### L 501.9985, L500.4050, L501.9520, L506.0400, L100.0100, L500.4100 ####[facility] [address] [place], [address] Cholesterol in LDL [Mass/Vol] 50 mg/dL Normal 0-130 [facility] Comment on above: Order Comment: Order Date: 05/16/24Order Info: 785-07 - CMPOrder Info: - LIPIDOrder Info: [id number] - TSHOrder Info: 7 - T4F Performed By: #### L 501.9985, L500.4050, L501.9520, L506.0400, L100.0100, L500.4100 ####[facility] [address] [place], [address] Cholesterol in VLDL [Mass/Vol] 14 mg/dL Normal 5-40 [facility] Comment on above: Order Comment: Order Date: 05/16/24Order Info: 785- - CMPOrder Info: [id number] - LIPIDOrder Info: [id number] - TSHOrder Info: 7 - T4F Performed By: #### L 501.9985, L500.4050, L501.9520, L506.0400, L100.0100, L500.4100 ####[facility] [address] [place], [place], [address] Triglyceride [Mass/Vol] 69 mg/dL Normal [facility] Comment on above: Order Comment: Order Date: 05/16/24Order Info: 785- - CMPOrder Info: [id number] - LIPIDOrder Info: 3 - TSHOrder Info: 7 - T4F Result Comment: The drugs N-Acetylcysteine and Metamizole may falsely depress this assay. Serum Triglycerides Reference Interval Normal <150 mg/dL Borderline high 150 - 199 mg/dL High 200 - 499 mg/dL Very High > or = 500 mg/dL Performed By: #### L 501.9985, L500.4050, L501.9520, L506.0400, L100.0100, L500.4100 ####[facility] [address] [place], [place], [phone] Free Directon 09-05-2024 T4 FREE DIRECT 1.20 ng/dL Normal 0.76-1.46 [facility] Comment on above: Order Comment: Order Date: 05/16/24Order Info: 785-07 - CMPOrder Info: - LIPIDOrder Info: [id number] - TSHOrder Info: 3027 - T4F Performed By: #### L 501.9985, L500.4050, L501.9520, L506.0400, L100.0100, L500.4100 ####[facility] [address] [place], [address] Thyroid Stim Hormone (TSH)on 09-05-2024 TSH 0.553 uIU/mL Normal 0.358-3.740 [facility] Comment on above: Order Comment: Order Date: 05/16/24Order Info: 785-07 - CMPOrder Info: [id number] - LIPIDOrder Info: 3 - TSHOrder Info: 3027 - T4F Performed By: #### L 501.9985, L500.4050, L501.9520, L506.0400, L100.0100, L500.4100 ####[facility] [address] [place], [address] Stress Reporton 07-07-2024 Stress Report [facility] [address] [place] [address] MR#: [id number] Acct: [id number] Name: MESSI VILLA Rep #: [id number] : 1945 79 From: Edd Berman MD Primary Care: Dr. Moiz Mueller MD Status: REG CLI Referring Dr: Edd [...] noted and no conduction system disorder present 07/07/241631 Date Edd Berman MD CC: Dr. Edd Berman MD; Dr. Moiz Mueller MD Date Dictated: 07/07/241629 Date Transcribed: 07/07/241629 Regulatory Auditor: [place] Signed [facility] 06-25-2024 CNPN Telephone (DMFPMN) MESSI VILLA ([id number]) 1945 M Date Time Provider Department 06/25/24 KYLAH DIMAS DMFPMN During your visit today, we recorded the following information about you: Sue Nava 06/25/2024 1:32 PM Signed June 25, 2024 Dear Messi Villa, Thank you for your request. Please call to confirm cancellation request, next availability for reschedule is possibly and not guaranteed NOVEMBER/2024 Please call [phone] Thank you for choosing [facility] for your healthcare. Sincerely, Your Care Team [...] Status:Closed by SUE NAVA on 06/25/24 Normal [facility] Cardiology Visit Reporton Cardiology Visit Report [facility] [address] [place] [address] OFFICE VISIT Date of Service: 06/13/24 MR#: [id number] Acct: [id number] Name: MESSI VILLA Rep #: [id number] : 1945 Provider: Dr. Edd Berman MD Age/Sex: 79/M Location: BMS.G Status: Signed HPI HPI History of Present [...] again. He has been seen by an pencil sorter and he is on antihistamine. 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 [facility] MESSI VILLA ([id number]) 1945 M Date Time Provider Department 06/11/24 11:45 AM ANNETTA KRAUSE UROLBE During your visit today, we recorded the [...] which included preparing to see the patient, wgac-hu-tyjx patient care, completing clinical documentation, performing a [...] and oriented (more content not included)... Normal [facility] No Panel InformationOrdered By: Nyla Sapp on 06-11-2024 [facility] UA DIP, URINE (POC)on 2023 BILIRUBIN UA (POCT) Negative Negative [facility] CLARITY UA (POCT) Clear [facility] COLOR UA (POCT) Yellow [facility] GLUCOSE UA (POCT) Negative Negative mg/dL [facility] Hemoglobin Ql (U) Negative Negative [facility] Interpretation and review of laboratory results Abnormal [facility] KETONE UA (POCT) Negative Negative mg/dL [facility] LEUKOCYTES UA (POCT) Trace Abnormal Negative [facility] NITRITE UA (POCT) Negative Negative [facility] PH UA (POCT) 6.5 4.5 - 8.0 [facility] Protein Ql (U) Negative Negative mg/dL [facility] SPECIFIC GRAVITY UA (POCT) 1.015 1.005 - 1.030 [facility] UROBILINOGEN UA (POCT) 0.2 Rona l E.U./dL [facility] Location:[facility], [address] [place] [address], [place], [address] [facility] POINT OF CARE URINE SEDIMENT B/OOrdered By : Nyla Sapp on 06-11-2024 BACTERIA, UR 0 Negative [facility] Casts LM.HPF (Urine sed) [#/Area] 0 /[HPF] Negative [facility] Leukocyte morphology finding Nom (Bld) [facility] Nucleated RBC Manual cnt (Unsp spec) [#] 0 [facility] Urine sediment comments LM Jorge (Urine sed) [facility] URINE SEDIMENT B/Oon 024 Microscopic performe d by LCARA Pratt , scribed by Nyla Sapp LPN [facility] CBC W/Diff, Automatedon 04-29 Absolute Lymph 1.23 X10 3/uL Normal 0.83-4.51 [facility] Comment on above: Order Comment: Order Date: 05/13/24Order Info: 183- - CBCD Performed By: #### L 100.0100 ####[facility] [address] [place], [address] Absolute Neut 2.9 X10 3/uL Normal 2.0-7.7 [facility] Comment on above: Order Comment: Order Date: 05/13/24Order Info: 183- - CBCD Performed By: #### L 100.0100 ####[facility] [address] [place], [address] Basophils/100 WBC (Bld) 0.8 % Normal 0-1 [facility] Comment on above: Order Comment: Order Date: 05/13/24Order Info: 4- - CBCD Performed By: #### L 100.0100 ####[facility] [address] [place], [address] Eosinophils/100 WBC (Bld) 4.8 % Normal 0-5 [facility] Comment on above: Order Comment: Order Date: 05/13/24Order Info: 018-1 - CBCD Performed By: #### L 100.0100 ####[facility] [address] [place], [address] Erythrocyte distribution width (RBC) [Ratio] 12.9 % Normal 11.6-14.6 [facility] Comment on above: Order Comment: Order Date: 05/13/24Order Info: 0184-1 - CBCD Performed By: #### L 100.0100 ####[facility] [address] [place], [address] Hematocrit (Bld) [Volume fraction] 42.1 % Normal 40-54 [facility] Comment on above: Order Comment: Order Date: 05/13/24Order Info: 018- - CBCD Performed By: #### L 100.0100 ####[facility] [address] [place], [address] Hemoglobin (Bld) [Mass/Vol] 14.2 g/dL Normal 13.0-16.5 [facility] Comment on above: Order Comment: Order Date: 05/13/24Order Info: 018- - CBCD Performed By: #### L 100.0100 ####[facility] [address] [place], [address] IG% 0.200 Normal 0.0-0.9 [facility] Comment on above: Order Comment: Order Date: 05/13/24Order Info: 018-1 - CBCD Result Comment: IG% - Immature Granulocytes (promyelocytes, myelocytes and metamyelocytes) > 1% indicates that a LEFT SHIFT is Present. Performed By: #### L 100.0100 ####[facility] [address] [place], [address] Lymphocytes/100 WBC (Bld) 24.4 % Normal 19-41 [facility] Comment on above: Order Comment: Order Date: 05/13/24Order Info: 183- - CBCD Performed By: #### L 100.0100 ####[facility] [address] [place], [address] MCH (RBC) [Entitic mass] 32.1 pg High 27.0-32.0 [facility] Comment on above: Order Comment: Order Date: 05/13/24Order Info: 183- - CBCD Performed By: #### L 100.0100 ####[facility] [address] [place], [address] MCHC (RBC) [Mass/Vol] 33.7 g/dL Normal 32-36 [facility] Comment on above: Order Comment: Order Date: 05/13/24Order Info: 183- - CBCD Performed By: #### L 100.0100 ####[facility] [address] [place], [address] MCV (RBC) [Entitic vol] 95.0 fL High 80-94 [facility] Comment on above: Order Comment: Order Date: 05/13/24Order Info: 183- - CBCD Performed By: #### L 100.0100 ####[facility] [address] [place], [address] Monocytes/100 WBC (Bld) 11.9 % High 0-10 [facility] Comment on above: Order Comment: Order Date: 05/13/24Order Info: 183- - CBCD Performed By: #### L 100.0100 ####[facility] [address] [place], [address] Neutrophils/100 WBC (Bld) 57.9 % Normal 47-70 [facility] Comment on above: Order Comment: Order Date: 05/13/24Order Info: 183- - CBCD Performed By: #### L 100.0100 ####[facility] [address] [place], [address] Nucleated RBC (Bld) [#/Vol] 0 10*3/uL Normal 0-5 [facility] Comment on above: Order Comment: Order Date: 05/13/24Order Info: 0184-1 - CBCD Performed By: #### L 100.0100 ####[facility] [address] [place], [address] Platelet mean volume (Bld) [Entitic vol] 10.5 fL Normal 6.2-12.0 [facility] Comment on above: Order Comment: Order Date: 05/13/24Order Info: 0184-1 - CBCD Performed By: #### L 100.0100 ####[facility] [address] [place], [address] Platelets (Bld) [#/Vol] 234 10*3/uL Normal 150-450 [facility] Comment on above: Order Comment: Order Date: 05/13/24Order Info: 0184-1 - CBCD Performed By: #### L 100.0100 ####[facility] [address] [place], [address] RBC (Bld) [#/Vol] 4.43 10*6/uL Low 4.6-6.2 [facility] Comment on above: Order Comment: Order Date: 05/13/24Order Info: 0184-1 - CBCD Performed By: #### L 100.0100 ####[facility] [address] [place], [address] RDW SD 45.1 fl High 35.1-43.9 [facility] Comment on above: Order Comment: Order Date: 05/13/24Order Info: 0184-1 - CBCD Performed By: #### L 100.0100 ####[facility] [address] [place], [address] WBC (Bld) [#/Vol] 5.0 10*3/uL Normal 4.4-11.0 [facility] Comment on above: Order Comment: Order Date: 05/13/24Order Info: 0184-1 - CBCD Performed By: #### L 100.0100 ####[facility] [address] [place], [address] Comprehensive Metabolic Prof ilon 05-14-2024 Albumin [Mass/Vol] 3.6 g/dL Normal 3.2-5.0 [facility] Comment on above: Order Comment: Order Date: 05/13/24 Order Info: 0786-1 - CMP Performed By: #### L 500.4050 #### [facility] [address] [place], [address] Albumin/Globulin [Mass ratio] 0.9 {ratio} Normal 0.9-2.4 [facility] Comment on above: Order Comment: Order Date: 05/13/24 Order Info: 0786-1 - CMP Performed By: #### L 500.4050 #### [facility] [address] [place], [address] ALK P 101 U/L Normal 45-117 [facility] Comment on above: Order Comment: Order Date: 05/13/24 Order Info: 0786-1 - CMP Performed By: #### L 500.4050 #### [facility] [address] [place], [address] ALT [Catalytic activity/Vol] 23 U/L Normal 16-61 [facility] Comment on above: Order Comment: Order Date: 05/13/24 Order Info: 0786-1 - CMP Performed By: #### [id number] #### [facility] [address] [place], [address] AST [Catalytic activity/Vol] 23 U/L Normal 15-37 [facility] Comment on above: Order Comment: Order Date: 05/13/24 Order Info: 0786-1 - CMP Performed By: #### [id number] #### [facility] [address] [place], [address] Bilirubin [Mass/Vol] 0.60 mg/dL Normal 0.20-1.00 [facility] Comment on above: Order Comment: Order Date: 05/13/24 Order Info: 0786-1 - CMP Result Comment: For patients on eltrombopag therapy, use of Dimension [place] TBIL is not recommended. Performed By: #### [id number] #### [facility] [address] [place], [address] BUN/CRE 20.3 RATIO High 10-20 [facility] Comment on above: Order Comment: Order Date: 05/13/24 Order Info: 0786-1 - CMP Performed By: #### [id number] #### [facility] [address] [place], [address] CA,Total 9.1 mg/dL Normal 8.5-10.1 [facility] Comment on above: Order Comment: Order Date: 05/13/24 Order Info: 0786-1 - CMP Performed By: #### [id number] #### [facility] [address] [place], [address] Chloride [Moles/Vol] 103 mmol/L Normal 98-107 [facility] Comment on above: Order Comment: Order Date: 05/13/24 Order Info: 0786-1 - CMP Performed By: #### [id number] #### [facility] [address] [place], [address] CO2 [Moles/Vol] 32.0 mmol/L Normal 21.0-32.0 [facility] Comment on above: Order Comment: Order Date: 05/13/24 Order Info: 0786-1 - CMP Performed By: #### [id number] #### [facility] [address] [place], [address] Creatinine [Mass/Vol] 1.23 mg/dL Normal 0.70-1.30 [facility] Comment on above: Order Comment: Order Date: 05/13/24 Order Info: 0786-1 - CMP Result Comment: The validity of the calculated GFR GFRAA in patients over 70 years has not been determined. Clinical correlation is essential. Performed By: #### [id number] #### [facility] [address] [place], [address] EST GFR - AA 73 mL/min Normal >60 [facility] Comment on above: Order Comment: Order Date: 05/13/24 Order Info: 0786-1 - CMP Result Comment: Afri can [place]uvian GFR Calc Performed By: #### [id number] #### [facility] [address] [place], [address] GAP 5 Normal 5-15 [facility] Comment on above: Order Comment: Order Date: 05/13/24 Order Info: 0786- - CMP Performed By: #### [id number] #### [facility] [address] [place], [address] GFR/1.73 sq M.predicted among non-blacks MDRD (S/P/Bld) [Vol rate/Area] 60 mL/min/{1.73_m2} Normal >60 [facility] Comment on above: Order Comment: Order Date: 05/13/24 Order Info: 0786-1 - CMP Result Comment: Non- GFR Calc Performed By: #### [id number] #### [facility] [address] [place], [address] Globulin (S) [Mass/Vol] 3.8 g/dL Normal 2.2-4.2 [facility] Comment on above: Order Comment: Order Date: 05/13/24 Order Info: 0786-1 - CMP Performed By: #### [id number] #### [facility] [address] [place], [address] Glucose [Mass/Vol] 103 mg/dL Normal 74-106 [facility] Comment on above: Order Comment: Order Date: 05/13/24 Order Info: 0786-1 - CMP Result Comment: Fast ing Glucose result from 100 to 125 mg/dL suggests IMPAIRED HOMEOSTASIS per A.D.A. criteria. Performed By: #### [id number] #### [facility] [address] [place], [address] Potassium [Moles/Vol] 3.4 mmol/L Low 3.5-5.1 [facility] Comment on above: Order Comment: Order Date: 05/13/24 Order Info: 0786-1 - CMP Performed By: #### [id number] #### [facility] [address] [place], [address] Sodium [Moles/Vol] 140 mmol/L Normal 136-145 [facility] Comment on above: Order Comment: Order Date: 05/13/24 Order Info: 0786-1 - CMP Performed By: #### [id number] #### [facility] [address] [place], [address] T PROT 7.4 g/dL Normal 6.4-8.2 [facility] Comment on above: Order Comment: Order Date: 05/13/24 Order Info: 0786-1 - CMP Performed By: #### [id number] #### [facility] [address] [place], [address] Urea nitrogen [Mass/Vol] 25 mg/dL High 7-18 [facility] Comment on above: Order Comment: Order Date: 05/13/24 Order Info: 0786-1 - CMP Performed By: #### [id number] #### [facility] [address] [place], [address] Hemoglobin A1con 05-14-2024 HbA1c (Bld) [Mass fraction] 5.8 % High 3.8-5.6 [facility] Comment on above: Order Comment: Order Date: 05/13/24 Order Info: [id number] - A1C Result Comment: Norm al < 5.7 % Prediabetic 5.7 - 6.4 % Diabetic >or= 6.5 % Please note range changes. Performed By: #### L [id number] #### [facility] [address] [place], [address] Absolute lymphocyte countOrd ered By: Barrie Pike on 10-11-2023 Lymphocytes Auto (Unsp spec) [#/Vol] 1.05 10*3/uL 0.83-4.51 [facility] Automated lymphocyte count a s percentage of total leukocytesOrdered By: Barrie Pike on 10-11-2023 Lymphocytes/100 WBC Auto (Unsp spec) 14.3 % 19-41 [facility] Basophil percentageOrdered B y: Barrie Pike on 10-11-2023 Basophils/100 WBC (Bld) 0.3 % 0-1 [facility] Chloride [Moles/Vol] 100 mmol/L 98-107 [facility] Eosinophils/100 WBC (Bld) 3.5 % 0-5 [facility] Glucose [Mass/Vol] 157 mg/dL 74-106 [facility] Comment on above: Fasting Glucose resu lt greater than or equal to 126 mg/dL suggests DIABETES MELLITUS per A.D.A. criteria. Hemoglobin (Bld) [Mass/Vol] 14.6 g/dL 13.0-16.5 [facility] Monocytes/100 WBC (Bld) 11.1 % 0-10 [facility] Neutrophils (Bld) [#/Vol] 5.2 10*3/uL 2.0-7.7 [facility] Neutrophils/100 WBC (Bld) 70.7 % 47-70 [facility] Potassium [Moles/Vol] 3.7 mmol/L 3.5-5.1 [facility] Sodium [Moles/Vol] 138 mmol/L 136-145 [facility] WBC (Bld) [#/Vol] 7.4 10*3/uL 4.4-11.0 [facility] Determination of erythrocyte mean corpuscular volume (MCV)Ordered By: Barrie Pike on 10-11-2023 MCV (RBC) [Entitic vol] 96.9 fL 80-94 [facility] Erythrocyte distribution wid th ratioOrdered By: Barrie Pike on 10-11-2023 Erythrocyte distribution width (RBC) [Ratio] 12.8 % 11.6-14.6 [facility] Erythrocyte distribution wid th standard deviationOrdered By: Barrie Pike on 10-11-2023 Erythrocyte distribution width (RBC) [Entitic vol] 46.5 fL 35.1-43.9 [facility] Hematocrit Auto (Bld) [Volum e fraction]Ordered By: Barrie Pike on 10-11-2023 Hematocrit (Bld) [Volume fraction] 43.2 % 40-54 [facility] Immature granulocytes/100 WB C Auto (Bld)Ordered By: Barrie Pike on 10-11-2023 Immature granulocytes/100 WBC (Bld) 0.100 % 0.0-0.9 [facility] Comment on above: IG% - Immature Granu locytes (promyelocytes, myelocytes and metamyelocytes) > 1% indicates that a LEFT SHIFT is Present. Laboratory - Chemistry and C hemistry - challengeOrdered By: Barrie Pike on 10-11-2023 CO2 [Moles/Vol] 32.0 mmol/L 21.0-32.0 [facility] Urea nitrogen/Creatinine [Mass ratio] 17.8 mg/mg 10-20 [facility] - Hematology and Cell countsOrdered By: Barrie Pike on 10-11-2023 MCH (RBC) [Entitic mass] 32.7 pg 27.0-32.0 [facility] MCHC (RBC) [Mass/Vol] 33.8 g/dL 32-36 [facility] Nucleated RBC/100 WBC (Bld) [Ratio] 0 % 0-5 [facility] Platelet mean volume (Bld) [Entitic vol] 10.4 fL 6.2-12.0 [facility] Platelets (Bld) [#/Vol] 204 10*3/uL 150-450 [facility] No Panel InformationOrdered By: Barrie Pike on 10-11-2023 Estimated Creatinine Clearance Calc 51.59 ml/min [facility] Estimated GFR (MDRD) Amer 77 mL/min >60 [facility] Comment on above: GFR Calc Estimated GFR (MDRD) Non-Af Amer 63 mL/min >60 [facility] Comment on above: Non- GFR Calc RBC Auto (Bld) [#/Vol]Ordere d By: Barrie Pike on 10-11-2023 RBC (Bld) [#/Vol] 4.46 10*6/uL 4.6-6.2 [facility] Serum or plasma calcium dulce urement (mass/volume)Ordered By: Barrie Pike on 10-11-2023 Calcium [Mass/Vol] 9.1 mg/dL 8.5-10.1 [facility] Serum or plasma creatinine m easurement (mass/volume)Ordered By: Barrie Pike on 10-11-2023 Creatinine [Mass/Vol] 1.18 mg/dL 0.70-1.30 [facility] Comment on above: The validity of the calculated GFR & GFRAA in patients over 70 years has not been determined. Clinical correlation is essential. Serum or plasma urea nitroge n measurement (mass/volume)Ordered By: Barrie Pike on 10-11-2023 Urea nitrogen [Mass/Vol] 21 mg/dL 7-18 [facility] Streptococcus pyogenes rRNA detection in throat by DNA probeOrdered By: Barrie Pike on 10-11-2023 S. pyogenes rRNA Probe Ql (Throat) [facility] Thin prep Papanicolaou smear with manual screeningOrdered By: Barrie Pike on 10-11-2023 Thin prep Papanicolaou smear with manual screening 6 5-15 [facility] Absolute lymphocyte countOrd ered By: Moiz Mueller on 05-08-2023 Lymphocytes Auto (Unsp spec) [#/Vol] 1.46 10*3/uL 0.83-4.51 [facility] Basophil percentageOrdered B y: Moiz Mueller on 05-08-2023 Basophils/100 WBC (Bld) 0.8 % 0-1 [facility] Bilirubin [Mass/Vol] 0.80 mg/dL 0.20-1.00 [facility] Comment on above: For patients on eltr ombopag therapy, use of [place] TBIL is not recommended. Chloride [Moles/Vol] 103 mmol/L 98-107 [facility] Cholesterol [Mass/Vol] 136 mg/dL <200 [facility] Comment on above: <200 mg/dL Desirable 200-240 mg/dL Borderline >240 mg/dL High Risk Eosinophils/100 WBC (Bld) 2.8 % 0-5 [facility] Glucose [Mass/Vol] 108 mg/dL 74-106 [facility] Comment on above: Fasting Glucose resu lt from 100 to 125 mg/dL suggests IMPAIRED HOMEOSTASIS per A.D.A. criteria. Neutrophils (Bld) [#/Vol] 4.1 10*3/uL 2.0-7.7 [facility] Neutrophils/100 WBC (Bld) 63.9 % 47-70 [facility] Potassium [Moles/Vol] 3.5 mmol/L 3.5-5.1 [facility] Protein [Mass/Vol] 7.6 g/dL 6.4-8.2 [facility] Sodium [Moles/Vol] 139 mmol/L 136-145 [facility] Triglyceride [Mass/Vol] 73 mg/dL <199 [facility] Comment on above: The drugs N-Acetylcy steine and Metamizole may falsely depress this assay.Serum Triglycerides Reference Interval Normal <150 mg/dL Borderline high 150 - 199 mg/dL High 200 - 499 mg/dL Very High > or = 500 mg/dL WBC (Bld) [#/Vol] 6.4 10*3/uL 4.4-11.0 [facility] Blood erythrocytes count (nu mber/volume)Ordered By: Moiz Mueller on 05-08-2023 RBC (Bld) [#/Vol] 4.69 10*6/uL 4.6-6.2 [facility] Blood hemoglobin measurement (mass/volume)Ordered By: Moiz Mueller on 05-08-2023 Hemoglobin (Bld) [Mass/Vol] 15.3 g/dL 13.0-16.5 [facility] Blood lymphocytes/100 leukoc ytesOrdered By: Moiz Mueller on 05-08-2023 Lymphocytes/100 WBC (Bld) 22.8 % 19-41 [facility] Blood monocytes/100 leukocyt esOrdered By: Moiz Mueller on 05-08-2023 Monocytes/100 WBC (Bld) 9.4 % 0-10 [facility] Blood platelet mean volumeOr dered By: Moiz Mueller on 05-08-2023 Platelet mean volume (Bld) [Entitic vol] 10.3 fL 6.2-12.0 [facility] Determination of erythrocyte mean corpuscular volume (MCV)Ordered By: Moiz Mueller on 05-08-2023 MCV (RBC) [Entitic vol] 96.6 fL 80-94 [facility] Hematocrit Auto (Bld) [Volum e fraction]Ordered By: Moiz Mueller on 05-08-2023 Hematocrit (Bld) [Volume fraction] 45.3 % 40-54 [facility] - Chemistry and C hemistry - challengeOrdered By: Moiz Mueller on 05-08-2023 ALP [Catalytic activity/Vol] 91 U/L 45-117 [facility] ALT [Catalytic activity/Vol] 33 U/L 16-61 [facility] CO2 [Moles/Vol] 32.0 mmol/L 21.0-32.0 [facility] Globulin (S) [Mass/Vol] 3.9 g/dL 2.2-4.2 [facility] Urea nitrogen/Creatinine [Mass ratio] 19.7 mg/mg 10-20 [facility] - Hematology and Cell countsOrdered By: Moiz Mueller on 05-08-2023 Erythrocyte distribution width (RBC) [Entitic vol] 46.5 fL 35.1-43.9 [facility] Erythrocyte distribution width (RBC) [Ratio] 13.2 % 11.6-14.6 [facility] Immature granulocytes/100 WBC (Bld) 0.300 % 0.0-0.9 [facility] Comment on above: IG% - Immature Granu locytes (promyelocytes, myelocytes and metamyelocytes) > 1% indicates that a LEFT SHIFT is Present. MCH (RBC) [Entitic mass] 32.6 pg 27.0-32.0 [facility] Nucleated RBC/100 WBC (Bld) [Ratio] 0 % 0-5 [facility] MCHC Auto (RBC) [Mass/Vol]Or dered By: Moiz Mueller on 05-08-2023 MCHC (RBC) [Mass/Vol] 33.8 g/dL 32-36 [facility] No Panel InformationOrdered By: Moiz Mueller on 05-08-2023 Estimated GFR (MDRD) Amer 78 mL/min >60 [facility] Comment on above: GFR Calc Estimated GFR (MDRD) Non-Af Amer 64 mL/min >60 [facility] Comment on above: Non- GFR Calc Thyroid Stimulating Hormone (TSH) 2.51 uIU/mL 0.358-3.74 [facility] Vitamin D 25-Hydroxy 41.9 ng/mL [facility] Comment on above: Vitamin D 25(OH) Sta tus Range Deficiency <20 ng/mL (50nmol/L) Insufficiency 20 - 30 ng/mL (50 - 75 nmol/L) Sufficiency 30 - 100 ng/mL (75 - 250 nmol/L) Toxicity >100 ng/mL (>250 nmol/L) Platelets bldOrdered By: Casey Mueller on 05-08-2023 Platelets (Bld) [#/Vol] 247 10*3/uL 150-450 [facility] Serum or plasma albumin dulce urement (mass/volume)Ordered By: Moiz Mueller on 05-08-2023 Albumin [Mass/Vol] 3.7 g/dL 3.2-5.0 [facility] Serum or plasma albumin/glob ulin mass ratioOrdered By: Moiz Mueller on 05-08-2023 Albumin/Globulin [Mass ratio] 0.9 {ratio} 0.9-2.4 [facility] Serum or plasma calcium dulce urement (mass/volume)Ordered By: Moiz Mueller on 05-08-2023 Calcium [Mass/Vol] 9.1 mg/dL 8.5-10.1 [facility] Serum or plasma cholesterol in HDL measurement (mass/volume)Ordered By: Moiz Mueller on 05-08-2023 Cholesterol in HDL [Mass/Vol] 63 mg/dL >40 [facility] Comment on above: The drugs N-Acetylcy steine and Metamizole may falsely depress this assay. Reference Range HDL <40 mg/dL Low HDL Cholesterol HDL >or= 60 mg/dL High HDL Cholesterol Serum or plasma cholesterol in VLDL measurement (mass/volume)Ordered By: Moiz Mueller on 05-08-2023 Cholesterol in VLDL [Mass/Vol] 15 mg/dL 5-40 [facility] Serum or plasma creatinine m easurement (mass/volume)Ordered By: Moiz Mueller on 05-08-2023 Creatinine [Mass/Vol] 1.17 mg/dL 0.70-1.30 [facility] Comment on above: The validity of the calculated GFR & GFRAA in patients over 70 years has not been determined. Clinical correlation is essential. Serum or plasma low density lipoprotein (LDL) cholesterol measurement (mass/volume)Ordered By: Moiz Mueller on 05-08-2023 Cholesterol in LDL [Mass/Vol] 58 mg/dL 0-130 [facility] Serum or plasma urea nitroge n measurement (mass/volume)Ordered By: Moiz Mueller on 05-08-2023 Urea nitrogen [Mass/Vol] 23 mg/dL 7-18 [facility] Thin prep Papanicolaou smear with manual screeningOrdered By: Moiz Mueller on 05-08-2023 Thin prep Papanicolaou smear with manual screening 21 U/L 15-37 [facility] Thin prep Papanicolaou smear with manual screening 4 5-15 [facility] Whole blood hemoglobin A1c/t otal hemoglobin ratio (mass fraction)Ordered By: Moiz Mueller on 05-08-2023 HbA1c (Bld) [Mass fraction] 5.6 % 3.8-5.6 [facility] Comment on above: Normal < 5.7 % Predi abetic 5.7 - 6.4 % Diabetic >or= 6.5 % Please note range changes. No Panel InformationOrdered By: Moiz Mueller on 01-19-2023 Prostate Specific Antigen Screen 2.10 ng/mL 0.00-4.00 [facility] Comment on above: This test was perfor med using the TPSA assay method for the[employer]of[employer]ieGPal chemistry system. Values obtained with differentassay methods cannot be used interchangably.When changing PSA assays in the course of monitoring apatient, additional sequential testing should be carriedout to confirm baseline values. Laboratory - Chemistry and C hemistry - challengeOrdered By: Dr. Mueller on 10-16-2022 Free T4 [Mass/Vol] 1.01 ng/dL 0.76-1.46 [facility] No Panel InformationOrdered By: Dr. Mueller on 10-16-2022 Thyroid Stimulating Hormone (TSH) 5.64 uIU/mL 0.358-3.74 [facility] Vitamin D 25-Hydroxy 50.5 ng/mL [facility] Comment on above: Vitamin D 25(OH) Sta tus Range Deficiency <20 ng/mL (50nmol/L) Insufficiency 20 - 30 ng/mL (50 - 75 nmol/L) Sufficiency 30 - 100 ng/mL (75 - 250 nmol/L) Toxicity >100 ng/mL (>250 nmol/L) Whole blood hemoglobin A1c/t otal hemoglobin ratio (mass fraction)Ordered By: Dr. Mueller on 10-16-2022 HbA1c (Bld) [Mass fraction] 5.7 % 3.8-5.6 [facility] Comment on above: Normal < 5.7 % Predi abetic 5.7 - 6.4 % Diabetic >or= 6.5 % Please note range changes. Absolute lymphocyte countOrd ered By: Dr. Mueller on 07-14-2022 Lymphocytes Auto (Unsp spec) [#/Vol] 1.70 10*3/uL 0.83-4.51 [facility] Basophil percentageOrdered B y: Dr. Mueller on 07-14-2022 Basophils/100 WBC (Bld) 0.8 % 0-1 [facility] Bilirubin [Mass/Vol] 0.60 mg/dL 0.20-1.00 [facility] Comment on above: For patients on eltr ombopag therapy, use of [place] TBIL is not recommended. Chloride [Moles/Vol] 106 mmol/L 98-107 [facility] Cholesterol [Mass/Vol] 125 mg/dL <200 [facility] Comment on above: <200 mg/dL Desirable 200-240 mg/dL Borderline >240 mg/dL High Risk Eosinophils/100 WBC (Bld) 3.9 % 0-5 [facility] Glucose [Mass/Vol] 103 mg/dL 74-106 [facility] Comment on above: Fasting Glucose resu lt from 100 to 125 mg/dL suggests IMPAIRED HOMEOSTASIS per A.D.A. criteria. Neutrophils (Bld) [#/Vol] 2.7 10*3/uL 2.0-7.7 [facility] Neutrophils/100 WBC (Bld) 52.3 % 47-70 [facility] Potassium [Moles/Vol] 3.8 mmol/L 3.5-5.1 [facility] Protein [Mass/Vol] 7.4 g/dL 6.4-8.2 [facility] Sodium [Moles/Vol] 140 mmol/L 136-145 [facility] Triglyceride [Mass/Vol] 65 mg/dL <199 [facility] Comment on above: The drugs N-Acetylcy steine and Metamizole may falsely depress this assay.Serum Triglycerides Reference Interval Normal <150 mg/dL Borderline high 150 - 199 mg/dL High 200 - 499 mg/dL Very High > or = 500 mg/dL WBC (Bld) [#/Vol] 5.2 10*3/uL 4.4-11.0 [facility] Blood erythrocytes count (nu mber/volume)Ordered By: Dr. Mueller on 07-14-2022 RBC (Bld) [#/Vol] 4.46 10*6/uL 4.6-6.2 [facility] Blood hemoglobin measurement (mass/volume)Ordered By: Dr. Mueller on 07-14-2022 Hemoglobin (Bld) [Mass/Vol] 14.8 g/dL 13.0-16.5 [facility] Blood lymphocytes/100 leukoc ytesOrdered By: Dr. Mueller on 07-14-2022 Lymphocytes/100 WBC (Bld) 32.9 % 19-41 [facility] Blood monocytes/100 leukocyt esOrdered By: Dr. Mueller on 07-14-2022 Monocytes/100 WBC (Bld) 9.9 % 0-10 [facility] Blood platelet mean volumeOr dered By: Dr. Mueller on 07-14-2022 Platelet mean volume (Bld) [Entitic vol] 10.0 fL 6.2-12.0 [facility] Determination of erythrocyte mean corpuscular volume (MCV)Ordered By: Dr. Mueller on 07-14-2022 MCV (RBC) [Entitic vol] 94.4 fL 80-94 [facility] Hematocrit Auto (Bld) [Volum e fraction]Ordered By: Dr. Mueller on 07-14-2022 Hematocrit (Bld) [Volume fraction] 42.1 % 40-54 [facility] - Chemistry and C hemistry - challengeOrdered By: Dr. Mueller on 07-14-2022 ALP [Catalytic activity/Vol] 80 U/L 45-117 [facility] ALT [Catalytic activity/Vol] 24 U/L 16-61 [facility] CO2 [Moles/Vol] 31.0 mmol/L 21.0-32.0 [facility] Free T4 [Mass/Vol] 1.07 ng/dL 0.76-1.46 [facility] Globulin (S) [Mass/Vol] 3.9 g/dL 2.2-4.2 [facility] Urea nitrogen/Creatinine [Mass ratio] 20.9 mg/mg 10-20 [facility] - Hematology and Cell countsOrdered By: Dr. Mueller on 07-14-2022 Erythrocyte distribution width (RBC) [Entitic vol] 44.5 fL 35.1-43.9 [facility] Erythrocyte distribution width (RBC) [Ratio] 12.9 % 11.6-14.6 [facility] Immature granulocytes/100 WBC (Bld) 0.200 % 0.0-0.9 [facility] Comment on above: IG% - Immature Granu locytes (promyelocytes, myelocytes and metamyelocytes) > 1% indicates that a LEFT SHIFT is Present. MCH (RBC) [Entitic mass] 33.2 pg 27.0-32.0 [facility] Nucleated RBC/100 WBC (Bld) [Ratio] 0 % 0-5 [facility] MCHC Auto (RBC) [Mass/Vol]Or dered By: Dr. Mueller on 07-14-2022 MCHC (RBC) [Mass/Vol] 35.2 g/dL 32-36 [facility] No Panel InformationOrdered By: Dr. Mueller on 07-14-2022 Estimated GFR (MDRD) Amer 79 mL/min >60 [facility] Comment on above: GFR Calc Estimated GFR (MDRD) Non-Af Amer 66 mL/min >60 [facility] Comment on above: Non- GFR Calc Thyroid Stimulating Hormone (TSH) 3.77 uIU/mL 0.358-3.74 [facility] Vitamin D 25-Hydroxy 39.9 ng/mL [facility] Comment on above: Vitamin D 25(OH) Sta tus Range Deficiency <20 ng/mL (50nmol/L) Insufficiency 20 - 30 ng/mL (50 - 75 nmol/L) Sufficiency 30 - 100 ng/mL (75 - 250 nmol/L) Toxicity >100 ng/mL (>250 nmol/L) Platelets bldOrdered By: Dr. Mueller on 07-14-2022 Platelets (Bld) [#/Vol] 217 10*3/uL 150-450 [facility] Serum or plasma albumin dulce urement (mass/volume)Ordered By: Dr. Mueller on 07-14-2022 Albumin [Mass/Vol] 3.5 g/dL 3.2-5.0 [facility] Serum or plasma albumin/glob ulin mass ratioOrdered By: Dr. Mueller on 07-14-2022 Albumin/Globulin [Mass ratio] 0.9 {ratio} 0.9-2.4 [facility] Serum or plasma calcium dulce urement (mass/volume)Ordered By: Dr. Mueller on 07-14-2022 Calcium [Mass/Vol] 8.8 mg/dL 8.5-10.1 [facility] Serum or plasma cholesterol in HDL measurement (mass/volume)Ordered By: Dr. Mueller on 07-14-2022 Cholesterol in HDL [Mass/Vol] 56 mg/dL >40 [facility] Comment on above: The drugs N-Acetylcy steine and Metamizole may falsely depress this assay. Reference Range HDL <40 mg/dL Low HDL Cholesterol HDL >or= 60 mg/dL High HDL Cholesterol Serum or plasma cholesterol in VLDL measurement (mass/volume)Ordered By: Dr. Mueller on 07-14-2022 Cholesterol in VLDL [Mass/Vol] 13 mg/dL 5-40 [facility] Serum or plasma creatinine m easurement (mass/volume)Ordered By: Dr. Mueller on 12-16-2022 Creatinine [Mass/Vol] 1.15 mg/dL 0.70-1.30 [facility] [facility] Comment on above: The validity of the calculated GFR & GFRAA in patients over 70 years has not been determined. Clinical correlation is essential. Serum or plasma low density lipoprotein (LDL) cholesterol measurement (mass/volume)Ordered By: Dr. Mueller on 07-14-2022 Cholesterol in LDL [Mass/Vol] 56 mg/dL 0-130 [facility] Serum or plasma urea nitroge n measurement (mass/volume)Ordered By: Dr. Mueller on 07-14-2022 Urea nitrogen [Mass/Vol] 24 mg/dL 7-18 [facility] Thin prep Papanicolaou smear with manual screeningOrdered By: Dr. Mueller on 07-14-2022 Thin prep Papanicolaou smear with manual screening 23 U/L 15-37 [facility] Thin prep Papanicolaou smear with manual screening 3 5-15 [facility] Whole blood hemoglobin A1c/t otal hemoglobin ratio (mass fraction)Ordered By: Dr. Mueller on 07-14-2022 HbA1c (Bld) [Mass fraction] 5.9 % 3.8-5.6 [facility] Comment on above: Normal < 5.7 % Predi abetic 5.7 - 6.4 % Diabetic >or= 6.5 % Please note range changes. Basophil percentageon 2021 Chloride [Moles/Vol] 105 mmol/L 98-107 [facility] Work Phone: Glucose [Mass/Vol] 98 mg/dL 74-106 [facility] Work Phone: [phone] Potassium [Moles/Vol] 3.6 mmol/L 3.5-5.1 [facility] Work Phone: Sodium [Moles/Vol] 139 mmol/L 136-145 [facility] Work Phone: Laboratory - Chemistry and C hemistry - challengeon 03-29-2022 CO2 [Moles/Vol] 30.0 mmol/L 21.0-32.0 [facility] Work Phone: Urea nitrogen/Creatinine [Mass ratio] 18.3 mg/mg 10-20 [facility] Work Phone: No Panel Informationon 03-29 Estimated GFR (MDRD) Amer 76 mL/min >60 [facility] Work Phone: Comment on above: GFR Calc Estimated GFR (MDRD) Non-Af Amer 62 mL/min >60 [facility] Work Phone: Comment on above: Non- GFR Calc Serum or plasma calcium dulce urement (mass/volume)on 03-29-2022 Calcium [Mass/Vol] 9.2 mg/dL 8.5-10.1 [facility] Work Phone: Serum or plasma creatinine m easurement (mass/volume)on 03-29-2022 Creatinine [Mass/Vol] 1.20 mg/dL 0.70-1.30 [facility] Work Phone: Comment on above: The validity of the calculated GFR & GFRAA in patients over 70 years has not been determined. Clinical correlation is essential. Serum or plasma urea nitroge n measurement (mass/volume)on 03-29-2022 Urea nitrogen [Mass/Vol] 22 mg/dL 7-18 [facility] Work Phone: Thin prep Papanicolaou smear with manual screeningon 03-29-2022 Thin prep Papanicolaou smear with manual screening 4 5-15 [facility] Work Phone: Whole blood hemoglobin A1c/t otal hemoglobin ratio (mass fraction)on 03-29-2022 HbA1c (Bld) [Mass fraction] 5.8 % 3.8-5.6 [facility] Work Phone: Comment on above: Normal < 5.7 % Predi abetic 5.7 - 6.4 % Diabetic >or= 6.5 % Please note range changes. Absolute lymphocyte counton 03-14-2022 Lymphocytes Auto (Unsp spec) [#/Vol] 1.62 10*3/uL 0.83-4.51 [facility] Work Phone: Basophil percentageon 2021 Basophil percentage 5-10 SEEN /hpf 0-5 [facility] Work Phone: Basophils/100 WBC (Bld) 0.4 % 0-1 [facility] Work Phone: Bilirubin [Mass/Vol] 0.60 mg/dL 0.20-1.00 [facility] Work Phone: Comment on above: For patients on eltr ombopag therapy, use of [employer] [place] TBIL is not recommended. Chloride [Moles/Vol] 103 mmol/L 98-107 [facility] Work Phone: Cholesterol [Mass/Vol] 126 mg/dL <200 [facility] Work Phone: Comment on above: <200 mg/dL Desirable 200-240 mg/dL Borderline >240 mg/dL High Risk Eosinophils/100 WBC (Bld) 3.8 % 0-5 [facility] Work Phone: Glucose [Mass/Vol] 104 mg/dL 74-106 [facility] Work Phone: Comment on above: Fasting Glucose resu lt from 100 to 125 mg/dL suggests IMPAIRED HOMEOSTASIS per A.D.A. criteria. Neutrophils (Bld) [#/Vol] 2.8 10*3/uL 2.0-7.7 [facility] Work Phone: Neutrophils/100 WBC (Bld) 53.0 % 47-70 [facility] Work Phone: Potassium [Moles/Vol] 3.7 mmol/L 3.5-5.1 [facility] Work Phone: Protein [Mass/Vol] 7.6 g/dL 6.4-8.2 [facility] Work Phone: Sodium [Moles/Vol] 140 mmol/L 136-145 [facility] Work Phone: Triglyceride [Mass/Vol] 76 mg/dL <199 [facility] Work Phone: Comment on above: The drugs N-Acetylcy steine and Metamizole may falsely depress this assay.Serum Triglycerides Reference Interval Normal <150 mg/dL Borderline high 150 - 199 mg/dL High 200 - 499 mg/dL Very High > or = 500 mg/dL WBC (Bld) [#/Vol] 5.2 10*3/uL 4.4-11.0 [facility] Work Phone: Bilirubin Test strip Ql (U)o n 03-14-2022 Bilirubin Ql (U) Negative Negative [facility] Work Phone: Blood erythrocytes count (nu mber/volume)on 03-14-2022 RBC (Bld) [#/Vol] 4.65 10*6/uL 4.6-6.2 [facility] Work Phone: Blood hemoglobin measurement (mass/volume)on 03-14-2022 Hemoglobin (Bld) [Mass/Vol] 15.0 g/dL 13.0-16.5 [facility] Work Phone: Blood lymphocytes/100 leukoc yteson 03-14-2022 Lymphocytes/100 WBC (Bld) 31.1 % 19-41 [facility] Work Phone: Blood monocytes/100 leukocyt eson 03-14-2022 Monocytes/100 WBC (Bld) 11.5 % 0-10 [facility] Work Phone: Blood platelet mean volumeon 03-14-2022 Platelet mean volume (Bld) [Entitic vol] 10.6 fL 6.2-12.0 [facility] Work Phone: Determination of erythrocyte mean corpuscular volume (MCV)on 03-14-2022 MCV (RBC) [Entitic vol] 95.7 fL 80-94 [facility] Work Phone: Hematocrit Auto (Bld) [Volum e fraction]on 03-14-2022 Hematocrit (Bld) [Volume fraction] 44.5 % 40-54 [facility] Work Phone: Ketones Test strip Ql (U)on 03-14-2022 Ketones Ql (U) Negative Negative [facility] Work Phone: Laboratory - Chemistry and C hemistry - challengeon 03-14-2022 ALP [Catalytic activity/Vol] 81 U/L 45-117 [facility] Work Phone: ALT [Catalytic activity/Vol] 25 U/L 16-61 [facility] Work Phone: CO2 [Moles/Vol] 32.0 mmol/L 21.0-32.0 [facility] Work Phone: Free T4 [Mass/Vol] 1.06 ng/dL 0.76-1.46 [facility] Work Phone: Globulin (S) [Mass/Vol] 4.0 g/dL 2.2-4.2 [facility] Work Phone: Urea nitrogen/Creatinine [Mass ratio] 18.9 mg/mg 10-20 [facility] Work Phone: Laboratory - Hematology and Cell countson 03-14-2022 Erythrocyte distribution width (RBC) [Entitic vol] 46.3 fL 35.1-43.9 [facility] Work Phone: Erythrocyte distribution width (RBC) [Ratio] 13.2 % 11.6-14.6 [facility] Work Phone: Immature granulocytes/100 WBC (Bld) 0.200 % 0.0-0.9 [facility] Work Phone: Comment on above: IG% - Immature Granu locytes (promyelocytes, myelocytes and metamyelocytes) > 1% indicates that a LEFT SHIFT is Present. MCH (RBC) [Entitic mass] 32.3 pg 27.0-32.0 [facility] Work Phone: Nucleated RBC/100 WBC (Bld) [Ratio] 0 % 0-5 [facility] Work Phone: MCHC Auto (RBC) [Mass/Vol]on 03-14-2022 MCHC (RBC) [Mass/Vol] 33.7 g/dL 32-36 [facility] Work Phone: Mucus LM Ql (Urine sed)on Mucus Ql (Urine sed) 0 SEEN /hpf [facility] Work Phone: Nitrite Test strip Ql (U)on 03-14-2022 Nitrite Ql (U) Negative Negative [facility] Work Phone: No Panel Informationon 03-14 Estimated GFR (MDRD) Amer 71 mL/min >60 [facility] Work Phone: Comment on above: GFR Calc Estimated GFR (MDRD) Non-Af Amer 59 mL/min >60 [facility] Work Phone: Comment on above: Non- GFR Calc Thyroid Stimulating Hormone (TSH) 3.40 uIU/mL 0.358-3.74 [facility] Work Phone: Vitamin D 25-Hydroxy 46.2 ng/mL [facility] Work Phone: Comment on above: Vitamin D 25(OH) Sta tus Range Deficiency <20 ng/mL (50nmol/L) Insufficiency 20 - 30 ng/mL (50 - 75 nmol/L) Sufficiency 30 - 100 ng/mL (75 - 250 nmol/L) Toxicity >100 ng/mL (>250 nmol/L) Platelets bldon 03-14-2022 Platelets (Bld) [#/Vol] 221 10*3/uL 150-450 [facility] Work Phone: Protein Test strip Ql (U)on 03-14-2022 Protein Ql (U) Negative Negative [facility] Work Phone: Serum or plasma albumin dulce urement (mass/volume)on 03-14-2022 Albumin [Mass/Vol] 3.6 g/dL 3.2-5.0 [facility] Work Phone: Serum or plasma albumin/glob ulin mass ratioon 03-14-2022 Albumin/Globulin [Mass ratio] 0.9 {ratio} 0.9-2.4 [facility] Work Phone: Serum or plasma calcium dulce urement (mass/volume)on 03-14-2022 Calcium [Mass/Vol] 9.2 mg/dL 8.5-10.1 [facility] Work Phone: Serum or plasma cholesterol in HDL measurement (mass/volume)on 03-14-2022 Cholesterol in HDL [Mass/Vol] 54 mg/dL >40 [facility] Work Phone: Comment on above: The drugs N-Acetylcy steine and Metamizole may falsely depress this assay. Reference Range HDL <40 mg/dL Low HDL Cholesterol HDL >or= 60 mg/dL High HDL Cholesterol Serum or plasma cholesterol in VLDL measurement (mass/volume)on 03-14-2022 Cholesterol in VLDL [Mass/Vol] 15 mg/dL 5-40 [facility] Work Phone: Serum or plasma creatinine m easurement (mass/volume)on 03-14-2022 Creatinine [Mass/Vol] 1.27 mg/dL 0.70-1.30 [facility] Work Phone: Comment on above: The validity of the calculated GFR & GFRAA in patients over 70 years has not been determined. Clinical correlation is essential. Serum or plasma low density lipoprotein (LDL) cholesterol measurement (mass/volume)on 03-14-2022 Cholesterol in LDL [Mass/Vol] 57 mg/dL 0-130 [facility] Work Phone: Serum or plasma urea nitroge n measurement (mass/volume)on 03-14-2022 Urea nitrogen [Mass/Vol] 24 mg/dL 7-18 [facility] Work Phone: Squamous epithelial cells de tection in urine sediment by light microscopyon 03-14-2022 Epithelial cells.squamous LM Ql (Urine sed) 0 SEEN /hpf 0-5 [facility] Work Phone: Thin prep Papanicolaou smear with manual screeningon 03-14-2022 Thin prep Papanicolaou smear with manual screening 25 U/L 15-37 [facility] Work Phone: Thin prep Papanicolaou smear with manual screening 5 5-15 [facility] Work Phone: Urine blood detectionon 02-27 RBC Ql (U) Negative Negative [facility] Work Phone: RBC Ql (U) 0 SEEN /hpf 0-5 [facility] Work Phone: Urine clarityon 03-14-2022 Clarity (U) Clear Clear [facility] Work Phone: Urine color determinationon 03-14-2022 Color (U) Yellow Yellow [facility] Work Phone: Urine glucose detectionon Glucose Ql (U) Normal mg/dl Normal [facility] Work Phone: Urine leukocyte esterase det ection by dipstickon 03-14-2022 Leukocyte esterase Test strip Ql (U) 100 /ul Negative [facility] Work Phone: Urine pHon 03-14-2022 pH (U) 7.0 [pH] 5.0 - 8.0 [facility] Work Phone: Urine sediment bacteria coun t by microscopy (number/high power field)on 03-14-2022 Bacteria LM.HPF (Urine sed) [#/Area] 0 /[HPF] None Seen [facility] Work Phone: Urine specific gravity measu rementon 03-14-2022 Specific gravity (U) [Rel density] 1.010 1.002-1.030 [facility] Work Phone: Urobilinogen Auto test strip Ql (U)on 03-14-2022 Urobilinogen Ql (U) Normal mg/dl Normal [facility] Work Phone: Culture, urineon 11-23-2021 Bacteria identified Cx Nom (U) Enterococcus faecalis [facility] Work Phone: Culture, urineon 09-29-2021 Bacteria identified Cx Nom (U) Enterococcus faecalis [facility] Work Phone: Office Visiton 03-22-2017 Documentation of current medications (procedure) Done Invalid Interpretation Code [facility] Work Phone: [phone] Fall risk assessment No [facility] Work Phone: [phone] Protein mass conc Done [facility] Work Phone: [phone] Lab Report: Lipid Profileon 02-20-2017 Cholesterol 127 mg/dL 200 [facility] Work Phone: [phone] HDL Cholesterol 64 mg/dL [facility] Work Phone: [phone] LDL Cholesterol 51 mg/dL 0-130 [facility] Work Phone: [phone] Triglyceride 62 mg/dL [facility] Work Phone: [phone] very low density lipoproteins 12 mg/dL 5-40 [facility] Work Phone: [phone] Lab Report: Liver Profileon 02-20-2017 Alanine aminotransferase (ALT) 22 U/L 12-78 [facility] Work Phone: [phone] Albumin 3.6 g/dL 3.4-5.0 [facility] Work Phone: [phone] Alkaline phosphatase (ALP) 95 U/L Invalid Interpretation Code 45-117 [facility] Work Phone: [phone] ALP enzyme act/vol (Bld) 95 U/L 45-117 [facility] Work Phone: [phone] Aspartate aminotransferase (AST) 24 U/L 15-37 [facility] Work Phone: [phone] Bilirubin (direct) 0.21 mg/dL 0.00-0.30 [facility] Work Phone: [phone] Bilirubin (total) 1.00 mg/dL 0.20-1.00 [facility] Work Phone: [phone] Globulin 4.1 g/dL High 2.3-3.5 [facility] Work Phone: [phone] Globulin mass conc (S) 4.1 g/dL High 2.3-3.5 [facility] Work Phone: [phone] Protein 7.7 g/dL 6.4-8.2 [facility] Work Phone: [phone] Lab Report: PSA,Total - Maria Elena al Screenon 02-20-2017 prostate specific antigen (PSA) screening 9.30 ng/mL High 0.00-4.00 [facility] Work Phone: [phone] Protein mass conc 9.30 ng/mL High 0.00-4.00 [facility] Work Phone: [phone] Office Visiton 12-19-2016 Documentation of current medications (procedure) Done Invalid Interpretation Code [facility] Work Phone: [phone] Fall risk assessment No [facility] Work Phone: [phone] Protein mass conc Done [facility] Work Phone: [phone] Replaced Document: Will Sánchez CG Observationson 12-19-2016 BUN (urea nitrogen) Sinus Rhythm - occasional ectopic ventricular beat -Right bundle branch block with left axis -bifascicular block. ABNORMAL Invalid Interpretation Code [facility] Work Phone: [phone] EKG QRS axis -75 deg [facility] Work Phone: [phone] GE use only - for [employer] import when terms are not otherwise specified 454 ms Invalid Interpretation Code [facility] Work Phone: [phone] P [place] 31 deg [facility] Work Phone: [phone] P wave axis, electrocardiogram 31 deg Invalid Interpretation Code [facility] Work Phone: [phone] ND Interval 214 ms [facility] Work Phone: [phone] ND interval, electrocardiogram 214 ms Invalid Interpretation Code [facility] Work Phone: [phone] Pulse (Heart Rate) 65 /min Invalid Interpretation Code [facility] Work Phone: [phone] QRS axis, electrocardiogram -75 deg Invalid Interpretation Code [facility] Work Phone: [phone] QRS Duration 158 ms [facility] Work Phone: [phone] QRS duration, electrocardiogram 158 ms Invalid Interpretation Code [facility] Work Phone: [phone] QT Interval new path ms [facility] Work Phone: [phone] QT interval, electrocardiogram new path ms Invalid Interpretation Code [facility] Work Phone: [phone] QTc Tobias 454 ms [facility] Work Phone: [phone] T [place] 51 deg [facility] Work Phone: [phone] T wave axis, electrocardiogram 51 deg Invalid Interpretation Code [facility] Work Phone: [phone] Urea nitrogen [Mass/Vol] Sinus Rhythm - occasional ectopic ventricular beat -Right bundle branch block with left axis -bifascicular block. 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 Left ventricular Ejection fraction 65 % [facility] Work Phone: [phone] Lab Report: Basic Metabolic Profile (BMP)on 08-18-2016 Anion gap 8 mmol/L Invalid Interpretation Code 12-11 [facility] Work Phone: [phone] Anion gap [Moles/Vol] 8 mmol/L 12-11 [facility] Work Phone: [phone] BUN/Creatinine Ratio 19.7 RATIO 10- [facility] Work Phone: [phone] Calcium 8.7 mg/dL 8.5-10.1 [facility] Work Phone: [phone] Chloride 101 mmol/L 98-107 [facility] Work Phone: [phone] CO2 30.0 mmol/L Invalid Interpretation Code 21.0-32.0 [facility] Work Phone: [phone] CO2 (BldV) [Partial pressure] 30.0 mmol/L 21.0-32.0 [facility] Work Phone: [phone] Creatinine 1.17 mg/dL 0.70-1.30 [facility] Work Phone: [phone] eGFR (non-black) 65 mL/min/{1.73_m2} >60 [facility] Work Phone: [phone] eGFR (non-black) 79 mL/min/{1.73_m2} Invalid Interpretation Code >60 [facility] Work Phone: [phone] EST GFR - AA 79 mL/min >60 [facility] Work Phone: [phone] Glucose 84 mg/dL Invalid Interpretation Code 70-110 [facility] Work Phone: [phone] Glucose [Mass/Vol] 84 mg/dL 70-110 [facility] Work Phone: [phone] Potassium 3.5 mmol/L 3.5-5.1 [facility] Work Phone: [phone] Sodium 139 mmol/L 136-145 [facility] Work Phone: [phone] Urea nitrogen 23 mg/dL High 7-18 [facility] Work Phone: [phone] Lab Report: Lipid Profileon 08-18-2016 Cholesterol 132 mg/dL Invalid Interpretation Code 200 [facility] Work Phone: [phone] HDL Cholesterol 57 mg/dL Invalid Interpretation Code [facility] Work Phone: [phone] LDL Cholesterol 62 mg/dL Invalid Interpretation Code 0-130 [facility] Work Phone: [phone] Triglyceride 67 mg/dL Invalid Interpretation Code [facility] Work Phone: [phone] very low density lipoproteins 13 mg/dL Invalid Interpretation Code 5-40 [facility] Work Phone: [phone] Lab Report: Liver Profileon 08-18-2016 Alanine aminotransferase (ALT) 33 U/L Invalid Interpretation Code 12-78 [facility] Work Phone: [phone] Albumin 3.7 g/dL Invalid Interpretation Code 3.4-5.0 [facility] Work Phone: [phone] Alkaline phosphatase (ALP) 87 U/L Invalid Interpretation Code 45-117 [facility] Work Phone: [phone] ALP (Bld) [Catalytic activity/Vol] 87 U/L 45-117 [facility] Work Phone: [phone] Aspartate aminotransferase (AST) 26 U/L Invalid Interpretation Code 15-37 [facility] Work Phone: [phone] Bilirubin (direct) 0.13 mg/dL Invalid Interpretation Code 0.00-0.30 [facility] Work Phone: [phone] Bilirubin (total) 0.50 mg/dL Invalid Interpretation Code 0.20-1.00 [facility] Work Phone: [phone] Globulin 3.7 g/dL High 2.3-3.5 [facility] Work Phone: [phone] Globulin (S) [Mass/Vol] 3.7 g/dL High 2.3-3.5 [facility] Work Phone: [phone] Protein 7.4 g/dL Invalid Interpretation Code 6.4-8.2 [facility] Work Phone: [phone]) Lab Report: Thyroid Stim Hor corrine (TSH)on 08-18-2016 Thyroid stimulating hormone (TSH) 9.01 u[iU]/mL High 0.358-3.74 [facility] Work Phone: [phone] Office Visiton 08-15-2016 Documentation of current medications (procedure) Done Invalid Interpretation Code [facility] Work Phone: [phone] Office Visiton 08-10-2015 Tobacco smoking status NHIS Never smoker [facility] Work Phone: [phone] Tobacco use CPHS Never smoker Invalid Interpretation Code [facility] Work Phone: [phone] Office Visiton 01-22-2015 cardiac risk group [facility] Work Phone: [phone] General cardiovascular disease 10Y risk [#] [place]inny[place]Ronni N/A [facility] Work Phone: [phone] Clinical Lists 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 Cholesterol to HDL Ratio 2.53 {ratio} [facility] Work Phone: [phone] LDL Cholesterol 72 mg/dL [facility] Work Phone: [phone] LDL/HDL ratio, serum 1.21 [facility] Work Phone: [phone] Lab Report: CBCon 11-06-2013 Erythrocytes (RBC) 4.60 10*6/uL Normal 4.6-6.2 [facility] Work Phone: [phone] Hematocrit (Bld) [Volume fraction] 42.3 % Normal 40-54 [facility] Work Phone: [phone] Hematocrit (HCT) 42.3 % Normal 40-54 [facility] Work Phone: [phone] Hemoglobin (HGB) 14.6 g/dL Normal 13.0-16.5 [facility] Work Phone: [phone] MCH 31.7 pg Normal 27.0-32.0 [facility] Work Phone: [phone] MCH (RBC) [Entitic mass] 31.7 pg Normal 27.0-32.0 [facility] Work Phone: [phone] MCHC 34.5 G/GL Normal 32-36 [facility] Work Phone: [phone] MCHC (RBC) [Mass/Vol] 34.5 G/GL Normal 32-36 [facility] Work Phone: [phone] MCV 92.0 fL Normal 80-94 [facility] Work Phone: [phone] MCV (RBC) [Entitic vol] 92.0 fL Normal 80-94 [facility] Work Phone: [phone] Platelet mean volume (Bld) [Entitic vol] 10.3 fL Normal 6.2-12.0 [facility] Work Phone: [phone] Platelets 222 10*3/mm3 Normal 150-450 [facility] Work Phone: [phone] Platelets (Bld) [#/Vol] 222 10*3/mm3 Normal 150-450 [facility] Work Phone: [phone] PMV by Radha 10.3 fL Normal 6.2-12.0 [facility] Work Phone: [phone] RBC (Bld) [#/Vol] 4.60 10*6/uL Normal 4.6-6.2 [facility] Work Phone: [phone] RDW-CA 45.1 fl High 35.1-43.9 [facility] Work Phone: [phone] WBC (Bld) [#/Vol] 5.2 10*3/uL Normal 4.4-11.0 [facility] Work Phone: [phone] WBC (Leukocytes) 5.2 10*3/uL Normal 4.4-11.0 [facility] Work Phone: [phone] Lab Report: PTon 11-06-2013 INR Coag (PPP) [Relative time] 1.0 {INR} Normal [facility] Work Phone: [phone] INR in blood by coagulation 1.0 {INR} Normal [facility] Work Phone: [phone] prothrombin time, actual/normal, ratio 12.7 SECONDS Normal 11.9-14.4 [facility] Work Phone: [phone] PTP 12.7 SECONDS Normal 11.9-14.4 [facility] Work Phone: [phone] Replaced Document: Will SINCLAIR Observationson 11-04-2013 BUN (urea nitrogen) Sinus Rhythm -Right bundle branch block with left axis -bifascicular block. ABNORMAL Invalid Interpretation Code [facility] Work Phone: [phone] P wave axis, electrocardiogram 33 deg Invalid Interpretation Code [facility] Work Phone: [phone] ND interval, electrocardiogram 204 ms Invalid Interpretation Code [facility] Work Phone: [phone] Pulse (Heart Rate) 71 /min Invalid Interpretation Code [facility] Work Phone: [phone] QRS axis, electrocardiogram -80 deg Invalid Interpretation Code [facility] Work Phone: [phone] QRS duration, electrocardiogram 162 ms Invalid Interpretation Code [facility] Work Phone: [phone] QT interval, electrocardiogram new path ms Invalid Interpretation Code [facility] Work Phone: [phone] T wave axis, electrocardiogram 58 deg Invalid Interpretation Code [facility] Work Phone: [phone] Replaced Document: Will SINCLAIR Observationson 10-02-2012 Pulse (Heart Rate) 443 ms Invalid Interpretation Code [facility] Work Phone: [phone] Lab Reporton 01-16-2012 Globulin 2.8 g/dL Invalid Interpretation Code [facility] Work Phone: [phone] Globulin (S) [Mass/Vol] 2.8 g/dL [facility] Work Phone: [phone] Culture, urine Bacteria identified Cx Nom (U) Enterococcus faecalis [facility] Work Phone: [phone] Vital Signs Date Time Vital Sign Value Performing Clinician Facility 02-18-2025 11:16-0400 Body height 175 cm Stephanie Moya PA-C Work Phone: [facility] 02-18-2025 11:16-0400 Body height 175.26 cm Stephanie Moya PA-C Work Phone: [facility] 02-18-2025 11:16-0400 Body mass index (BMI) [Ratio] 26.68 kg/m2 Stephanie Higuerae PA-C Work Phone: [facility] 02-18-2025 11:16-0400 Body weight 82 kg Stephanie Moya PA-C Work Phone: [facility] 02-18-2025 11:16-0400 Body weight 81.65 kg Stephanie Higuerae PA-C Work Phone: [facility] 02-18-2025 11:16-0400 BP SITE #1 Stephanie Moya PA-C Work Phone: [facility] 02-18-2025 11:16-0400 Diastolic blood pressure 70 mm[Hg] Stephanie Moya PA-C Work Phone: [facility] [facility]-2025 11:16-0400 Heart rate 82 /min Stephanie Moya PA-C Work Phone: [facility] 02-18-2025 11:16-0400 HGHTCHNVIS Stephanie Moya PA-C Work Phone: [facility] 02-18-2025 11:16-0400 Systolic blood pressure 126 mm[Hg] Stephanie Moya PA-C Work Phone: [facility] 02-18-2025 11:16-0400 VITALSDONE Stephanie Moya PA-C Work Phone: [facility] 06-11-2024 12:07-0500 Diastolic blood pressure 73 mm[Hg] Annetta Krause MD Work Phone: [facility] 06-11-2024 12:07-0500 Heart rate 55 /min Annetta Krause MD Work Phone: [facility] 06-11-2024 12:07-0500 Systolic blood pressure 162 mm[Hg] Annetta Krause MD Work Phone: [facility] 10-11-2023 14:23-0400 Body temperature 97.6 [degF] Dr. Moiz Mueller Work Phone: [facility] 10-11-2023 14:23-0400 Diastolic blood pressure 86 mm[Hg] Dr. Moiz Mueller Work Phone: [facility] 10-11-2023 14:23-0400 Heart rate 64 /min Dr. Moiz Mueller Work Phone: [facility] 10-11-2023 14:23-0400 Respiratory rate 22 /min Dr. Moiz Mueller Work Phone: [facility] 10-11-2023 14:23-0400 SaO2% (BldA) [Mass fraction] 95 % Dr. Moiz Mueller Work Phone: [facility] 10-11-2023 14:23-0400 Systolic blood pressure 156 mm[Hg] Dr. Moiz Mueller Work Phone: [facility] 10-11-2023 12:00-0400 Inhaled oxygen flow rate 3 L/min Dr. Moiz Mueller Work Phone: [facility] 10-11-2023 09:21-0400 Body height 175.[address] Moiz Mueller Work Phone: [facility] 10-11-2023 09:21-0400 Body mass index (BMI) [Ratio] 26.5 kg/m2 Dr. Moiz Mueller Work Phone: [facility] 10-11-2023 09:21-0400 Body weight 81.[address] Moiz Mueller Work Phone: [facility] 08-31-2023 13:31-0500 Body height 172.[address] Moiz Mueller Work Phone: [facility] 08-31-2023 13:31-0500 Body mass index (BMI) [Ratio] 27.3 kg/m2 Dr. Moiz Mueller Work Phone: [facility] 08-31-2023 13:31-0500 Body weight 81.[address] Moiz Mueller Work Phone: [facility] 08-31-2023 13:31-0500 Diastolic blood pressure 60 mm[Hg] Dr. Moiz Mueller Work Phone: [facility] 08-31-2023 13:31-0500 Heart rate 52 /min Dr. Moiz Mueller Work Phone: [phone] 08-31-2023 13:31-0500 Respiratory rate 18 /min Dr. Moiz Mueller Work Phone: [facility] 08-31-2023 13:31-0500 SaO2% (BldA) [Mass fraction] 96 % Dr. Moiz Mueller Work Phone: [facility] 08-31-2023 13:31-0500 Systolic blood pressure 112 mm[Hg] Dr. Moiz Mueller Work Phone: [facility] 05-03-2023 14:25-0400 Body height 172.[address] Moiz Mueller Work Phone: [facility] 05-03-2023 14:25-0400 Body mass index (BMI) [Ratio] 27.5 kg/m2 Dr. Moiz Mueller Work Phone: [facility] 05-03-2023 14:25-0400 Body weight 82.[address] Moiz Mueller Work Phone: [facility] 05-03-2023 14:25-0400 Diastolic blood pressure 75 mm[Hg] Dr. Moiz Mueller Work Phone: [facility] 05-03-2023 14:25-0400 Heart rate 61 /min Dr. Moiz Mueller Work Phone: [facility] 05-03-2023 14:25-0400 Respiratory rate 18 /min Dr. Moiz Mueller Work Phone: [facility] 05-03-2023 14:25-0400 Systolic blood pressure 134 mm[Hg] Dr. Moiz Mueller Work Phone: [facility] 02-22-2023 10:55-0400 Body mass index (BMI) [Ratio] 26.8 kg/m2 Dr. Moiz Mueller Work Phone: [facility] 02-22-2023 10:55-0400 Body weight 79.[address] Moiz Mueller Work Phone: [facility] 02-22-2023 10:55-0400 Diastolic blood pressure 68 mm[Hg] Dr. Moiz Mueller Work Phone: [facility] 02-22-2023 10:55-0400 Heart rate 48 /min Dr. Moiz Mueller Work Phone: [facility] 02-22-2023 10:55-0400 Respiratory rate 16 /min Dr. Moiz Mueller Work Phone: [facility] 02-22-2023 10:55-0400 SaO2% (BldA) [Mass fraction] 95 % Dr. Moiz Mueller Work Phone: [facility] 02-22-2023 10:55-0400 Systolic blood pressure 137 mm[Hg] Dr. Moiz Mueller Work Phone: [facility] 08-25-2022 14:20-0500 Body height 172.[address] Moiz Mueller Work Phone: [facility] 08-25-2022 14:20-0500 Body mass index (BMI) [Ratio] 27.2 kg/m2 Dr. Moiz Mueller Work Phone: [facility] 08-25-2022 14:20-0500 Body weight 81.[address] Moiz Mueller Work Phone: [facility] 08-25-2022 14:20-0500 Diastolic blood pressure 68 mm[Hg] Dr. Moiz Mueller Work Phone: [facility] 08-25-2022 14:20-0500 Heart rate 55 /min Dr. Moiz Mueller Work Phone: [facility] 08-25-2022 14:20-0500 Respiratory rate 16 /min Dr. Moiz Mueller Work Phone: [facility] 08-25-2022 14:20-0500 Systolic blood pressure 127 mm[Hg] Dr. Moiz Mueller Work Phone: [facility] 02-09-2022 13:07-0400 Body height 172.[address] Moiz Mueller Work Phone: [facility] Work Phone: 08-09-2021 08:42-0500 Body mass index (BMI) [Ratio] 28.1 kg/m2 Dr. Moiz Mueller Work Phone: [facility] Work Phone: 08-09-2021 08:42-0500 Body weight 83.[address] Moiz Mueller Work Phone: [facility] Work Phone: 08-09-2021 08:42-0500 Diastolic blood pressure 72 mm[Hg] Dr. Moiz Mueller Work Phone: [facility] Work Phone: 08-09-2021 08:42-0500 Heart rate 53 /min Dr. Moiz Mueller Work Phone: [facility] Work Phone: 08-09-2021 08:42-0500 Respiratory rate 18 /min Dr. Moiz Mueller Work Phone: [facility] Work Phone: 08-09-2021 08:42-0500 SaO2% (BldA) [Mass fraction] 97 % Dr. Moiz Mueller Work Phone: [facility] Work Phone: 08-09-2021 08:42-0500 Systolic blood pressure 146 mm[Hg] Dr. Moiz Mueller Work Phone: [facility] Work Phone: 08-09-2021 07:42-0500 Body height 172.[address] Moiz Mueller Work Phone: [facility] Work Phone: 08-09-2021 07:42-0500 Body weight 83.[address] Moiz Mueller Work Phone: [facility] Work Phone: 08-09-2021 07:42-0500 Diastolic blood pressure 72 mm[Hg] Dr. Moiz Mueller Work Phone: [facility] Work Phone: 08-09-2021 07:42-0500 Heart rate 57 /min Dr. Moiz Mueller Work Phone: [facility] Work Phone: 08-09-2021 07:42-0500 Respiratory rate 18 /min Dr. Moiz Mueller Work Phone: [facility] Work Phone: 08-09-2021 07:42-0500 SaO2% (BldA) [Mass fraction] 99 % Dr. Moiz Mueller Work Phone: [facility] Work Phone: 08-09-2021 07:42-0500 Systolic blood pressure 154 mm[Hg] Dr. Moiz Mueller Work Phone: [facility] Work Phone: 12-28-2020 12:30-0400 Body mass index (BMI) [Ratio] 26.9 kg/m2 Dr. Moiz Mueller Work Phone: [facility] Work Phone: 03-22-2017 14:51-0400 BMI (Body Mass Index) 27.05 kg/m2 [facility] Work Phone: 03-22-2017 14:51-0400 BP Diastolic 60 mm[Hg] [facility] Work Phone: 03-22-2017 14:51-0400 BP Systolic 100 mm[Hg] [facility] Work Phone: 03-22-2017 14:51-0400 Height 175.26 cm [facility] Work Phone: 03-22-2017 14:51-0400 Pulse (Heart Rate) 52 /min [facility] Work Phone: 03-22-2017 14:51-0400 Respiratory Rate 20 /min [facility] Work Phone: 03-22-2017 14:51-0400 Weight 83.1 kg [facility] Work Phone: 12-19-2016 08:29-0400 Heart rate 65 /min [facility] Work Phone: 12-19-2016 08:22-0400 BMI (Body Mass Index) 26.58 kg/m2 [facility] Work Phone: 12-19-2016 08:22-0400 Body weight 81.65 kg [facility] Work Phone: 12-19-2016 08:22-0400 BP Diastolic 50 mm[Hg] [facility] Work Phone: 12-19-2016 08:22-0400 BP Systolic 100 mm[Hg] [facility] Work Phone: 12-19-2016 08:22-0400 Height 175.26 cm Alie Chauhan [facility] Work Phone: 12-19-2016 08:22-0400 Pulse (Heart Rate) 65 /min [facility] Work Phone: 12-19-2016 08:22-0400 Respiratory Rate 20 /min [facility] Work Phone: 12-19-2016 08:22-0400 Weight 81.65 kg [facility] Work Phone: 08-15-2016 09:11-0500 BMI (Body Mass Index) 26.73 kg/m2 Unique Zamorano RN [facility] Work Phone: 08-15-2016 09:11-0500 BP Diastolic 60 mm[Hg] Unique Zamorano RN [facility] Work Phone: 08-15-2016 09:11-0500 BP Systolic 130 mm[Hg] Unique Zamorano RN [facility] Work Phone: 08-15-2016 09:11-0500 BSA (Body Surface Area) 1.98 m2 Unique Zamorano RN [facility] Work Phone: 08-15-2016 09:11-0500 Pulse (Heart Rate) 68 /min Unique Zamorano RN [facility] Work Phone: 08-15-2016 09:11-0500 Respiratory Rate 20 /min [facility] Work Phone: 08-15-2016 09:11-0500 Weight 82.1 kg Unique Zamorano RN [facility] Work Phone: 12-18-2013 15:19-0400 Height 175.26 cm [facility] Work Phone: 10-02-2012 11:38-0500 Heart rate 443 ms [facility] Work Phone: Encounters Encounter Date Encounter Type Care Provider Facility Start: 02-20-2025 End: 02-20-[address] Moiz Mueller MD Work Phone: -Laboratory Start: 02-20-2025 End: 02-20-[address] Moiz Mueller MD -Laboratory Work Phone: Start: 02-20-2025 End: 02-20-2025 ambulatory Moiz Mueller Facility:[facility] Start: 02-18-2025 In-person encounter Stephanie murrell PA-C Work Phone: [facility] Work Phone: Start: 02-18-2025 Visit out of hours Stephanie bojorquez PA-C Work Phone: [facility] Work Phone: Start: 01-20-2025 End: 01-20-[address] Moiz Mueller MD Work Phone: -Laboratory Start: 01-20-2025 End: 01-20-[address] Moiz Mueller MD -Laboratory Work Phone: Start: 01-20-2025 End: 01-20-2025 ambulatory Moiz Mueller Facility:[facility] Start: 11-14-2024 End: 11-14-2024 Patient encounter procedure Kylah Dimas DDS Work Phone: Dentistry Comment on above: Sleep related bruxis m (Primary Dx); TMJ crepitus; Attrition, teeth excessive; Myofascial pain Start: 11-14-2024 End: 11-14-2024 ambulatory KYLAH DIMAS Facility:[facility] Start: 09-10-2024 End: 09-10-2024 ambulatory Moiz Mueller Facility:[facility] Start: 09-05-2024 End: 09-05-2024 ambulatory Moiz Mueller Facility:[facility] Start: 07-07-2024 ambulatory [facility] Facility:[facility] Start: 07-07-2024 End: 07-07-2024 ambulatory [facility] Facility:[facility] Start: 06-25-2024 End: 06-25-2024 Telephone encounter Kylah Cindy Dimas DDS Work Phone: Dentistry Comment on above: Appointment Start: 06-13-2024 End: 06-13-2024 ambulatory Moiz Mueller Facility:[facility] Start: 06-11-2024 End: 06-11-2024 ambulatory ANNETTA KRAUSE Facility:[facility] Start: 06-11-2024 End: 06-11-2024 Patient encounter procedure Annetta Krause MD Work Phone: Urology Comment on above: Foreign body in blad nixon, sequela (Primary Dx); Screening for genitourinary condition; Postprocedural male urethral stricture; BPH with obstruction/lower urinary tract symptoms; Urinary frequency; Weak urinary stream; Intermittent urinary stream Start: 05-14-2024 End: 05-14-2024 ambulatory Moiz Mueller Facility:[facility] Start: 11-16-2023 End: 11-16-[address] Moiz Mueller Work Phone: [facility] Work Phone: Start: 11-16-2023 End: 11-16-[address] Moiz Mueller Work Phone: [facility]-Physical Therapy Work Phone: Start: 10-11-2023 End: 10-11-2023 Emergency department patient visit Dr. Moiz Mueller Work Phone: [facility]-Emergency Department Work Phone: Start: 10-09-2023 End: 10-09-[address] Moiz Mueller Work Phone: [facility] Work Phone: Start: 10-09-2023 End: 10-09-[address] Moiz Mueller [facility]: Start: 10-04-[address] Moiz Mueller Work Phone: [facility] Therapy Work Phone: Start: 09-03-[address] Moiz Mueller Work Phone: [facility] Therapy Work Phone: Start: 08-31-2023 End: 08-31-[address] Moiz Mueller Work Phone: [facility] Work Phone: Start: 06-18-2023 Non-patient / Non-visit Dr. Annabella Mueller Work Phone: [facility] Work Phone: Start: 06-06-2023 Non-patient / Non-visit Dr. Annabella Mueller Work Phone: [facility] Start: 06-06-2023 End: 06-06-[address] Moiz Mueller Work Phone: [facility] Work Phone: Start: 06-06-2023 End: 06-06-[address] Moiz Mueller Work Phone: [facility]Cardiov[facility]cul[facility] Services Work Phone: Start: 05-14-2023 End: 05-14-[address] Moiz Mueller Work Phone: [facility] Work Phone: Start: 05-14-2023 End: 05-14-[address] Moiz Mueller Work Phone: [facility]-Pulmonary Services/Neurology Work Phone: Start: 05-08-2023 End: 05-08-[address] Moiz Mueller Work Phone: [facility] Work Phone: Start: 05-08-2023 End: 05-08-[address] [facility] Start: 05-03-2023 End: 05-03-[address] Moiz Mueller Work Phone: [facility] Work Phone: Start: 04-06-[address] Moiz Mueller Work Phone: [facility]-Physical Therapy Work Phone: Start: 02-22-2023 End: 02-22-[address] Moiz Mueller Work Phone: [facility] Work Phone: Start: 01-19-2023 End: 01-19-2023 ambulatory [facility] Work Phone: Start: 01-19-2023 End: 01-19-2023 [facility] Start: 10-16-2022 End: 10-16-[address] Moiz Mueller Work Phone: [facility] Work Phone: Start: 10-16-2022 End: 10-16-[address] Moiz Mueller Work Phone: [facility]-Laboratory Start: 08-25-2022 End: 08-25-[address] Moiz Mueller Work Phone: [facility] Start: 07-14-2022 End: 07-14-2022 ambulatory [facility] Work Phone: Start: 07-14-2022 End: 07-14-2022 Patient encounter procedure [facility] Start: 03-29-2022 End: 03-29-[address] Moiz Mueller Work Phone: [facility] Work Phone: Start: 03-29-2022 End: 03-29-[address] Moiz Mueller Work Phone: [facility]-Laboratory Start: 03-16-2022 Non-patient / Non-visit Dr. Annabella Mueller Work Phone: [facility] Start: 03-16-2022 End: 03-16-[address] Mozi Mueller Work Phone: [facility] Start: 03-14-2022 End: 03-14-[address] Moiz Mueller Work Phone: [facility] Work Phone: Start: 03-14-2022 End: 03-14-[address] Moiz Mueller Work Phone: [facility]-Laboratory Start: 02-09-2022 End: 02-09-[address] Moiz Mueller Work Phone: [facility] Start: 12-05-2021 End: 12-05-2021 Patient encounter procedure [facility] Start: 11-23-2021 End: 11-23-[address] Moiz Mueller Work Phone: [facility]-Laboratory, Specimen Start: 11-09-2021 End: 11-09-[address] Moiz Mueller Work Phone: [facility]-Radiology, [facility] Start: 09-29-2021 End: 09-29-[address] Moiz Mueller Work Phone: [facility]-Laboratory, Specimen Start: 08-09-2021 End: 08-09-[address] Moiz Mueller Work Phone: [facility] Start: 12-28-[address] Rose Mueller Work Phone: [facility] Procedures Date Procedure Procedure Detail Performing Clinician Start: 02-18-2025 Blood pressure withi n normal parameters - no follow-up required Stephanie Moya PA-C Work Phone: Start: 02-18-2025 BMI outside of rona l parameters - no follow-up plan/reason not given Stephanie Moya PA-C Work Phone: Start: 02-18-2025 Current tobacco non- user cad cap copd pv dm Stephanieisabel Moya PA-C Work Phone: Start: 02-18-2025 Documentation of cur rent medications Stephanie Moya PA-C Work Phone: Start: 02-18-2025 Pain assessment documented as positive - follow-up documented Stephanie Moya PA-C Work Phone: Start: 01-20-2025 Urnls dip stick/tabl et reagent auto microscopy Dr. Moiz Mueller MD Work Phone: Start: 01-20-2025 Vitamin D, 25-hydrox y measurement Dr. Moiz Mueller MD Work Phone: Comment on above: Vitamin D StatusDefi ciency: <20 ng/mL (50nmol/L)Insufficiency: 20-30 ng/mL (50-75 nmol/L)Sufficiency: 30-100 ng/mL (75-250 nmol/L)Toxicity: >100 ng/mL (>250 nmol/L) Start: 11-14-2024 DETAILED AND EXTENSI VE ORAL EVALUATION - PROBLEM FOCUSED, BY REPORT Kylah Dimas DDS Work Phone: Start: 06-11-2024 Urinalysis microscop ic only Annetta Krause MD Work Phone: Start: 06-11-2024 Urnls dip stick/tabl et rgnt auto w/o microscopy Annetta Krause MD Work Phone: Start: 10-11-2023 Streptococcus pyogen es rRNA assay Dr. Moiz Mueller Work Phone: Start: 10-11-2023 CT of soft tissues o f neck with contrast Dr. Moiz Mueller Work Phone: Start: 10-09-2023 Plain chest X-ray Dr. Rose Mueller Work Phone: Start: 12-05-2021 MRI of lumbar spine Start: 11-23-[address] Moiz Mueller Work Phone: Start: 11-09-2021 X-ray of lumbar spin e, two or three views Dr. Moiz Mueller Work Phone: Start: 09-29-2021 Bacteria identified in Urine by Culture Dr. Moiz Mueller Work Phone: Start: 09-29-[address] Moiz Mueller Work Phone: Start: 03-22-2017 End: 03-22-2017 KEM Berman MD [...] Panel Elizabeth Pisano Start: 08-15-2016 End: 08-15-2016 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 Edd Berman MD Start: 08-15-2016 End: 08-15-2016 Follow [...] Panel Elizabeth Pisano Start: 12-18-2013 End: 12-18-2013 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 Edd Berman MD Start: 12-18-2013 End: 12-18-2013 Follow Up Appt 4 months Elizabeth Pisano Start: 12-18-2013 End: 04-06-2014 Lipid panel [AGGREGATE] Elizabeth Pisano Start: 12-05-2013 History of placement of stent for coronary artery disease History of coronary artery stent placement Dr. Moiz Mueller Work Phone: Comment on above: PCI-SHERYL-OM2 w/ 2.5 x 18 mm Resolute [employer]ity 12/05/2013 Start: 11-20-2013 End: 04-06-2014 *BMP Cezar Franco [...] Edd Berman MD Start: 11-04-2013 End: 11-04-2013 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 Edd Berman MD Start: 11-04-2013 End: 11-04-2013 [...] Edd Berman MD Start: 10-02-2012 End: 10-02-2012 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 Edd Berman MD Start: 10-02-2012 End: 10-02-2012 [...] DTaP,Tdap,Td Vaccine (3 - Td or Tdap) [facility] Start: 06-17-2025 End: 06-17-2025 Patient encounter procedure 06/17/2025 2:30 PM EST Office Visit Urology [id number] [place] [address] Trino Rodriguez PA-C [address] [place] [address] Follow Up Urology Comment on above: Follow Up Start: 02-18-2025 End: 02-18-2025 [employer] Work Phone: Start: 02-18-2025 End: 02-18-2025 [employer] Work Phone: Start: 11-14-2024 End: 11-14-2024 Patient encounter procedure 11/14/2024 1:00 PM EDT Office Visit Dentistry [address] [address] Kylah Dimas, DDS [address] [place] [address] TMJ Consult no NG - [facility] Comment on above: TMJ Consult no NG - pan[facility]15/24 [facility] Start: 10-13-2024 Covid-19 Vaccine ( season) Covid-19 Vaccine ( season) [facility] Start: 07-30-2024 Advance Directive Discussion Advance Directive Discussion [facility] Start: 10-11-2023 [facility] Start: 07-30-2023 Advance Directive Discussion Advance Directive Discussion [facility] Start: 11-03-2019 Diabetes Screening Diabetes Screenin g [facility] Start: 10-09-2018 Hepatitis B surface antibody level LDL Cholesterol [facility] Start: 09-20-2017 End: 09-20-2017 Appointment Appointment [facility] Work Phone: Start: 08-23-2017 End: 02-28-2017 *Hepatic Function Panel *Hepatic Function Panel [facility] Work Phone: Start: 08-23-2017 End: 02-28-2017 Lipid panel [AGGREGATE] *Lipid Profile CC PCP [facility] Work Phone: Start: 03-22-2017 End: 03-22-2017 Appointment Appointment [facility] Work Phone: Start: 03-22-2017 End: 03-22-2017 Appointment Appointment [facility] Work Phone: Start: 03-22-2017 End: 03-22-2017 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 [facility] Work Phone: Start: 03-22-2017 End: 03-22-2017 Follow Up Appt 6 months Follow Up Appt 6 months [facility] Work Phone: Start: 03-02-2017 End: 03-02-2017 Appointment Appointment [facility] Work Phone: Start: 02-20-2017 End: 02-20-2017 Appointment Appointment [facility] Work Phone: Start: 02-20-2017 End: 02-20-2017 Follow Up BP Check Follow Up BP Check [facility] Work Phone: Start: 02-15-2017 End: 02-20-2017 *Hepatic Function Panel *Hepatic Function Panel [facility] Work Phone: Start: 02-15-2017 End: 02-20-2017 Lipid panel [AGGREGATE] *Lipid Profile CC PCP [facility] Work Phone: Start: 12-19-2016 End: 12-19-2016 Appointment Appointment [facility] Work Phone: Start: 12-19-2016 End: 12-19-2016 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 [facility] Work Phone: Start: 12-19-2016 End: 12-27-2016 Electrocardiogram, complete EKG (In office) [facility] Work Phone: Start: 12-19-2016 End: 12-19-2016 Follow Up Appt 3 months Follow Up Appt 3 months [facility] Work Phone: Start: 12-19-2016 End: 12-19-2016 Nuclear stress test -exercise Nuclear stress test -exercise [facility] Work Phone: Start: 08-15-2016 End: 08-18-2016 *BMP *BMP [facility] Work Phone: Start: 08-15-2016 End: 08-18-2016 *Hepatic Function Panel *Hepatic Function Panel [facility] Work Phone: Start: 08-15-2016 End: 08-15-2016 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 [facility] Work Phone: Start: 08-15-2016 End: 08-15-2016 Follow Up Appt 6 months Follow Up Appt 6 months [facility] Work Phone: Start: 08-15-2016 End: 08-18-2016 Lipid panel [AGGREGATE] *Lipid Profile CC PCP [facility] Work Phone: Start: 08-15-2016 End: 08-18-2016 Thyroid stimulating hormone (TSH) *TSH [facility] Work Phone: Start: 08-11-2016 End: 08-24-2016 *Hepatic Function Panel *Hepatic Function Panel [facility] Work Phone: Start: 08-11-2016 End: 08-24-2016 Lipid panel [AGGREGATE] *Lipid Profile CC PCP [facility] Work Phone: Start: 02-15-2016 End: 02-15-2016 Follow Up Appt 6 months Follow Up Appt 6 months [facility] Work Phone: Start: 02-15-2016 End: 02-15-2016 MMM MMM [facility] Work Phone: Start: 02-03-2016 End: 02-11-2016 *Hepatic Function Panel *Hepatic Function Panel [facility] Work Phone: Start: 02-03-2016 End: 02-11-2016 Lipid panel [AGGREGATE] *Lipid Profile CC PCP [facility] Work Phone: Start: 08-10-2015 End: 08-10-2015 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 [facility] [facility] Work Phone: Start: 08-10-2015 End: 08-10-2015 Follow Up Appt 6 months Follow Up Appt 6 months [facility] Work Phone: Start: 07-28-2015 End: 08-05-2015 *Hepatic Function Panel *Hepatic Function Panel [facility] Work Phone: Start: 07-28-2015 End: 08-05-2015 Lipid panel [AGGREGATE] *Lipid Profile CC PCP [facility] Work Phone: Start: 01-22-2015 End: 01-26-2015 *Hepatic Function Panel *Hepatic Function Panel [facility] Work Phone: Start: 01-22-2015 End: 01-22-2015 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 [facility] Work Phone: Start: 01-22-2015 End: 01-22-2015 Follow Up Appt 6 months Follow Up Appt 6 months [facility] Work Phone: Start: 01-22-2015 End: 01-26-2015 Lipid panel [AGGREGATE] *Lipid Profile CC PCP [facility] Work Phone: Start: 04-29-2014 End: 01-26-2015 *Hepatic Function Panel *Hepatic Function Panel [facility] Work Phone: Start: 04-29-2014 End: 01-26-2015 Lipid panel [AGGREGATE] *Lipid Profile CC PCP [facility] Work Phone: Start: 04-23-2014 End: 04-23-2014 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 [facility] Work Phone: Start: 04-23-2014 End: 04-23-2014 Follow Up Appt 6 months Follow Up Appt 6 months [facility] Work Phone: Start: 04-23-2014 End: 04-23-2014 Nuclear stress test -exercise Nuclear stress test -exercise [facility] Work Phone: Start: 12-18-2013 End: 04-06-2014 *Hepatic Function Panel *Hepatic Function Panel [facility] Work Phone: Start: 12-18-2013 End: 12-18-2013 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 [facility] Work Phone: Start: 12-18-2013 End: 12-18-2013 Follow Up Appt 4 months Follow Up Appt 4 months [facility] Work Phone: Start: 12-18-2013 End: 04-06-2014 Lipid panel [AGGREGATE] *Lipid Profile CC PCP [facility] Work Phone: Start: 11-20-2013 End: 04-06-2014 *BMP *BMP [facility] Work Phone: Start: 11-20-2013 End: 04-06-2014 DJN DJN [facility] Work Phone: Start: 11-10-2013 End: 11-10-2013 Nuclear stress test -exercise Nuclear stress test -exercise [facility] Work Phone: Start: 11-04-2013 End: 11-04-2013 *BMP *BMP [facility] Work Phone: Start: 11-04-2013 End: 11-06-2013 *Hepatic Function Panel *Hepatic Function Panel [facility] Work Phone: Start: 11-04-2013 End: 11-04-2013 CBC W Auto Differential panel - Blood *CBC without Diff [facility] Work Phone: Start: 11-04-2013 End: 11-07-2013 Chest x-ray X-Ray, Chest, PA & Lateral [facility] Work Phone: Start: 11-04-2013 End: 11-04-2013 Coagulation factor induced.INR assay in platelet poor plasma *PT/INR [facility] Work Phone: Start: 11-04-2013 End: 11-04-2013 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 [facility] Work Phone: Start: 11-04-2013 End: 11-04-2013 Electrocardiogram, complete EKG (In office) [facility] Work Phone: Start: 11-04-2013 End: 11-04-2013 Follow Up Appt 6 months Follow Up Appt 6 months [facility] Work Phone: Start: 11-04-2013 End: 11-04-2013 Left Heart Cath Left Heart Cath [facility] Work Phone: Start: 11-04-2013 End: 11-06-2013 Lipid panel [AGGREGATE] *Lipid Profile CC PCP [facility] Work Phone: Start: 12-28-2012 End: 02-07-2013 *Hepatic Function Panel *Hepatic Function Panel [facility] Work Phone: Start: 12-28-2012 End: 02-07-2013 Lipid panel [AGGREGATE] *Lipid Profile [facility] Work Phone: Start: 10-02-2012 End: 10-02-2012 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 [facility] Work Phone: Start: 10-02-2012 End: 10-02-2012 Electrocardiogram, complete EKG (In office) [facility] Work Phone: Start: 10-02-2012 End: 10-02-2012 Follow Up Appt Other Follow Up Appt Other [facility] Work Phone: Start: 08-01-2011 End: 01-17-2012 Electrocardiogram, complete EKG (In office) [facility] Work Phone: Start: 08-01-2011 End: 08-01-2011 Follow Up Appt 1 year Follow Up Appt 1 year [facility] Work Phone: Start: 1963 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 Disease Visit Annual PCP Team Chronic Disease Visit [facility] Start: 1963 Anxiety Screening Anxiety Screening [facility] Start: 1963 BP Controlled (<130/80) BP Controlle d (<130/80) [facility] Start: 1963 [facility] Max OCCLUSAL GUARD H VANDANA APPLIANCE, FULL ARCH Max OCCLUSAL GUARD HARD APPLIANCE, FULL ARCH Dental Routine 1 Occurrences starting 11/14/2024 [facility] Work Phone: Comment on above: 1 Occurrences starti ng 11/14/2024 PANORAMIC RADIOGRAPH IC IMAGE PANORAMIC RADIOGRAPHIC IMAGE [facility] Routine 1 Occurrences starting 11/14/2024 [facility] Comment on above: 1 Occurrences starti ng 11/14/2024 Patient Education [facility] Work Phone: Patient referral [facility] Work Phone: RE-EVALUATION - LIMITED, PROBLEM FOCUSED (ESTABLISHED PATIENT; NOT POST-OPERATIVE VISIT) RE-EVALUATION - LIMITED, PROBLEM FOCUSED (ESTABLISHED PATIENT; NOT POST-OPERATIVE VISIT) Dental Routine 1 Occurrences starting 11/14/2024 [facility] Comment on above: 1 Occurrences starti ng 11/14/2024 SPLINT FOLLOW UP SPLINT FOLLOW U P Dental Routine 1 Occurrences starting 11/14/2024 [facility] Comment on above: 1 Occurrences starti ng 11/14/2024 UNSPECIFIED ADJUNCTI VE PROCEDURE, BY REPORT UNSPECIFIED ADJUNCTIVE PROCEDURE, BY REPORT Dental Routine 1 Occurrences starting 11/14/2024 [facility] Comment on above: 1 Occurrences starti ng 11/14/2024 Immunizations Immunization Date Immunization Notes Care Provider [facility] 10-13-2020 Donovan Zuniga) Dr. Moiz Richards [facility] Work Phone: [facility] 09-15-2020 Donovan Zuniga) Dr. Moiz Richards [facility] Work Phone: [facility] 05-08-2017 influenza, high dose seasonal, preservative-free Kylah Dimas DDS Work Phone: [facility] 06-16-2016 influenza, high dose seasonal, preservative-free Kylah Dimas DDS Work Phone: [facility] 04-11-2016 tetanus toxoid, redu frank diphtheria toxoid, and acellular pertussis vaccine, adsorbed Kylah Dimas DDS Work Phone: [facility] 04-11-2016 typhoid vaccine, parenteral, other than acetone-killed, dried Kylah Dimas DDS Work Phone: [facility] 10-25-2015 pneumococcal conjuga te vaccine, 13 valent Kylah Dimas DDS Work Phone: [facility] 06-18-2015 influenza, high dose seasonal, preservative-free Kylah Judie DDS Work Phone: [facility] 05-07-2014 influenza, seasonal, injectable Kylah Dimas DDS Work Phone: [facility] Work Phone: 07-08-2012 influenza virus vacc ine, unspecified formulation Kylah Judie DDS Work Phone: [facility] Work Phone: 02-14-2012 pneumococcal polysaccharide vaccine, 23 valent Kylah Colemann DDS Work Phone: [facility] Work Phone: 06-28-2011 influenza virus vacc ine, unspecified formulation Kylah Colemann DDS Work Phone: [facility] 02-18-2010 hepatitis A and hepatitis B vaccine Kylah Judie DDS Work Phone: [facility] 08-06-2009 hepatitis A and hepatitis B vaccine Kylah Colemann DDS Work Phone: [facility] 07-07-2009 hepatitis A and hepatitis B vaccine Kylah Judie DDS Work Phone: [facility] 07-07-2009 typhoid vaccine, unspecified formulation Kylah Judie DDS Work Phone: [facility] 05-20-2009 influenza virus vacc ine, unspecified formulation Kylah Judie DDS Work Phone: [facility] Work Phone: 05-10-2009 zoster vaccine, live Kylah Gracy santanan DDS Work Phone: [facility] 06-05-2008 influenza virus vacc ine, unspecified formulation Kylah Judie DDS Work Phone: [facility] 11-28-2007 tetanus and diphther ia toxoids, adsorbed, preservative free, for adult use (2 Lf of tetanus toxoid and 2 Lf of diphtheria toxoid) Kylah Dimas DDS Work Phone: [facility] 07-04-2005 influenza virus vacc ine, unspecified formulation Kylah Dimas DDS Work Phone: [facility] Work Phone: 12-28-1986 Meningococcal, MCV4, unspecified conjugate formulation(groups A, C, Y and W-135) Kylah Dimas DDS Work Phone: [facility] 12-28-1986 tetanus and diphther ia toxoids, not adsorbed, for adult use Kylah Dimas DDS Work Phone: [facility] Work Phone: 12-28-1986 trivalent poliovirus vaccine, live, oral Kylah Dimas DDS Work Phone: [facility] 12-28-1986 typhoid vaccine, unspecified formulation Kylah Dimas DDS Work Phone: [facility] Payers Date Payer Category Payer Self-pay [id number] 2015 Private Health Insurance [facility] [id number] 2015-Present [phone] [address] [place] [address] Indemnity [id number] 2015 Unknown [id number] 2010 Medicare MEDICARE MEDICAR E A AND B [id number] 2010-Present [phone] [address] [address] [place] [address] Medicare [id number] 2010 Medicare [id number] Unknown [id number] Unknown [id number] Unknown [id number] Unknown [id number] Unknown [id number] Unknown [id number] Unknown [id number] Unknown [id number] Social History Date Type Detail Facility Start: 08-09-2021 End: 10-11-2023 Tobacco smoking status [facility] Unknown if ever smoked [facility] Start: 10-12-2020 None [facility] Start: 10-12-2020 Spouse/ Signif icant Other [facility] Start: 10-12-2020 Non-smoker [facility] Start: 1945 Sex Assigned At Male [facility] Start: 01-16-2011 End: 10-11-2023 Tobacco smoking status DEIS Never smoked tobacco [facility] Start: 01-16-2011 Tobacco use and exposure Smokeless tobacco non-user [facility] Start: 03-15-2022 Alcoholic beverage intake Current drinker of alcohol (finding) [facility] Start: 03-15-2022 End: 06-11-2024 History of Social function [facility] Start: 03-15-2022 End: 02-18-2025 Tobacco use panel [facility] Work Phone: National Score (1-10 0), lower number is lower risk 66 [facility] Start: 04-12-2020 Gender identity Identifies as male gender (finding) [facility] Start: 04-18-2020 Sexual orientation Heterosexual (nishant chandler) [facility] Medical Equipment Procedure Code Equipment Code Equipment [...] No 03/07/2015 11:50 AM Ariadne Villegas MA [facility] 03-07-2015 Are you blind, or do you have serious difficulty seeing, even when wearing glasses No 03/07/2015 11:50 AM Ariadne Villegas MA No [facility] 03-07-2015 Do you have serious difficulty walking or climbing stairs No 03/07/2015 11:50 AM Ariadne Villegas MA No [facility] 03-07-2015 Do you have difficul ty dressing or bathing No 03/07/2015 11:50 AM Ariadne Villegas MA No [facility] 03-07-2015 Because of a physica l, mental, or emotional condition, do you have difficulty doing errands alone such as visiting a physician's office or shopping No 03/07/2015 11:50 AM Ariadne Villegas MA No [facility] Mental Status Date Assessment Result Facility 03-07-2015 Because of a physica l, mental, or emotional condition, do you have serious difficulty concentrating, remembering, or making decisions No 03/07/2015 11:50 AM Ariadne Villegas MA No [facility] Clinical Notes 12-05-2013 to 11-14-2024 Kylah Dimas DDS - 11/14/2024 12:28 PM EDTTelephone Encounter - Sue Nava - 06/25/2024 1:24 PM ESTTelephone Encounter - Sue Nava - 06/25/2024 1:24 PM EST Note Date & Type Note Facility 11-14-2024 Note HNO ID: [id number] Author: KYLAH DIMAS DDS Service: ? Author Type: Dentist Type: Progress Notes Filed: 11/14/2024 15:03 Note Text: [facility], Oral Surgery, AND Maxillofacial Prosthetics Date: [...] restriction Right rotat (more content not included)... [facility] 11-14-2024 History of Presen t illness Narrative [facility], Oral Surgery, & Maxillofacial Prosthetics Date: [...] I molar relationship with anterior contact in UT end to end except #11- moderate lower anterior wear on #23,24,25,26 Load testing was positive for left masseter pain pain-duplicated area of trp. Centric relation was verified today with the initial contact coincidental with UT. There are working and non-working posterior interferences [...] IA TREATMENT RECOMMENDATIONS: Discussed stabilization occlusal guard (manager night) for nocturnal bruxism and dental attrition as [...] Kylah Dimas DDS documented in this encounter [facility] 06-25-2024 Telephone encount er Note June 25, 2024 Dear Messi Villa, Thank you for your request. Please call to confirm cancellation request, next availability for reschedule is possibly and not guaranteed NOVEMBER/2024 Please call [phone] Thank you for choosing [facility] for your healthcare. Sincerely, Your Care Team [facility] 06-25-2024 Miscellaneous Notes Formattin g of this note might be different from the original. June 25, 2024 Dear Messi Villa, Thank you for your request. Please call to confirm cancellation request, next availability for reschedule is possibly and not guaranteed NOVEMBER/2024 Please call [phone] Thank you for choosing [facility] for your healthcare. Sincerely, Your Care Team documented in this encounter [facility] 06-11-2024 Nurse Note NURSE POST PROCEDURE ASSESSMENT [...] Factors Were Barriers To This Education Session: Buddhist Factors: No barriers The Following Physical Limitations [...] Care Visit completed when applicable. FANNIE Jacobs [facility] 06-11-2024 Nurse Note NURSE POST PROCEDURE ASSESSMENT [...] Factors Were Barriers To This Education Session: Buddhist Factors: No barriers The Following Physical Limitations [...] Drape. Anesthetic Given: 10 cc 2% Lidocaine FANNIE Lucas Rn documented in this encounter [facility] 06-11-2024 Nurse Note PRE CYSTO PROCEDURE ID [...] Drape. Anesthetic Given: 10 cc 2% Lidocaine FANNIE Lucas Rn [facility] 06-11-2024 Note HNO ID: [id number] Author: ANNETTA KRAUSE MD Service: ? Author [...] which included preparing to see the patient, [id number] patient care, completing clinical documentation, performing a medically appropriate examination, counseling and educating the patient/family/caregiver, ordering medications, tests, or procedures, independently interpreting results (not separately reported), communicating results to the patient/family/caregiver and care coordination (not separately reported). Annetta Krause MD [facility] 06-11-2024 History of Presen t illness [...] which included preparing to see the patient, [id number] patient care, completing clinical documentation, performing a medically appropriate examination, counseling and educating the patient/family/caregiver, ordering medications, tests, or procedures, independently interpreting results (not separately reported), communicating results to the patient/family/caregiver and care coordination (not separately reported). Annetta Krause MD documented in this encounter [facility] 11-16-2023 Discharge summary Note Date/Time November 16, 2023 10:52am [facility] [address] [place] [address] [address] [place] [address] / REHABILITATION SERVICES DISCHARGE SUMMARY MR#: [id number] Acct: [id number] Name: MESSI VILLA Rep #: [id number] : 1945 78 From: Zulema Clinton PT, Cert. MDT Referring Dr.: Dr. Misael Conti MD Status: REG RCR Insurance: MEDICARE PART A B [facility] Discharge Summary D/C summary: It has been [...] Goal 4:: PATIENT WILL BE INDEP WITH HEP FOR CONTINUED IMPROVEMENT ONCE FORMAL PHYSICAL THERPAY CONCLUDES. Goal Progress: Goal Met Plan Plan: D/C D/C Information d/c sentence: If there are questions or concerns regarding this patient's physical therapy, please feel free to call me at [phone]. Thank you for the referral of thispatient. Sincerely, Zulema Clinton, PT, Cert MDT Balance/Gait/Functional tests Balance/Special Test Scores Quick DASH Score: 5.0000 Improvement % Improvement: 95 <Electronically signed by Zulema Clinton PT, Cert. MDT> 11/16/23 1052 CC: Dr. Misael Conti MD; Dr. Moiz Mueller MD ~ POONAM Signed [facility] Work Phone: 1(368) 518-970405-09-2014 Evaluation note* Diagnosis Onset Date Resolution Status Atherosclerotic heart diseas e of [place] coronary artery without angina pectoris chronic Essential (primary) hypertension chronic Hyperlipidemia chronic History of coronary artery stent placement December 05 resolved [facility] Work Phone: 1(693) 277-777405-09-2014 Evaluation note* Diagnosis Onset Date Resolution Status Dizziness acute Essential (primary) hypertension chronic Hyperlipidemia chronic History of coronary artery stent placement December 05 resolved [facility] Work Phone: 1(875) 218-679205-09-2014 Evaluation note* Diagnosis Onset Date Resolution Status Essential (primary) hypertension chronic Hyperlipidemia chronic History of coronary artery stent placement December 05 resolved [facility] Work Phone: 1(898) 314-169505-09-2014 Evaluation note* Diagnosis Onset Date Resolution Status Bradycardia acute Essential (primary) hypertension chronic Hyperlipidemia chronic History of coronary artery stent placement December 05 resolved Bradycardia acute Essential (primary) hypertension chronic Hyperlipidemia chronic History of coronary artery stent placement December 05 14 resolved [facility] Work Phone: 1(339) 391-678305-09-2014 Evaluation note* Diagnosis Onset Date Resolution Status Bradycardia acute Essential (primary) hypertension chronic Hyperlipidemia chronic History of coronary artery stent placement December 05 resolved [facility] Work Phone: Evaluation noteNo assessment information available [facility] Work Phone: Evaluation note* Diagnosis Routine [...] of urinary stream [facility] Routine medical exam- Primary Routine [...] and myositis, unspecified documented in this encounter [facility] Discharge instructions Additional Instructions Thank you for [...] care physician for further outpatient evaluation and management.[facility] Work Phone: Reason for referral (narrative)No reason for referral [facility] Work Phone: Reason for visit Narrative* Financial Clearance (Routine) - Closed Specialty Diagnoses / Procedures Referred By Contac t Referred To Contact Dentistry / DENTISTRY Diagnoses TMJ Consult no NG/ Will send pano Procedures TMJ CONSULT Self Kylah Dimas, DDWillie [address] [place] [address] Phone: tel: fax: Referral ID Status Reason Start Date Expiration Date V isits Requested Visits Authorized [id number] Closed Financial Clearance Required - Self Pay OON/Self Pay Override Dental - Patient Cleared required payment collected 10/29/2024 01/27/2025 1 1 [facility] Chief Complaint and Reason for Visit Chief Complaint 7 M FU (MOVED FROM [facility]) Reason for Visit Atherosclerotic hear t disease of [place] coronary artery without angina pectoris Essential (primary) [...] of coronary artery stent placement Chief Complaint Admit Date E ORDERS January 20, 2025 7:11 am Chief Complaint Admit Date E ORDERS January 20, 2025 7:11 am INT LAB ORDERS February 20, 2025 11:1 1am Family History No Family History Records Found Relationship Condition Age at Onset Recorded Date/T [place] father Coronary artery disease Unknown Unknown mother Malignant neoplasm of pancreas Unknown Family Member Condition Full Sister No Medical History Mother Cancer Mother Arthritis Mother Father Vascular disease Father High blood pressure Father Heart disease Father Advance Directives No Advanced Directives Records Found Advance Directive Response Recorded Date/ Time Living Will No October 12, 2020 5:13am Power of Obiee Obia Solution Architect Yes October 12 5:13am Advance Directive Response Recorded Date/ Time Living Will No October 12, 2020 4:13am Power of Obiee Obia Solution Architect Yes October 12 4:13am Documents on File Type Date Recorded 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 Moiz Mueller MD Family Provider Active Dr. Moiz Mueller MD Primary Care Provider Active Team Status: Inactive Member Role Status Dates Dr. Moiz Mueller MD Primary Care Provider, Referr ing Provider Active Dr. Edd Berman MD Attending Provider Active Team Status: Inactive Member Role Status Dates Dr. Moiz Mueller MD Primary Care Pr ovider, Attending Provider, Referring Provider Active Team Status: Inactive Member Role Status Dates Dr. Moiz Mueller MD Primary Care Provider, Referr ing Provider Active Tila Caldwell BIOMETRICS ANALYST, BIOMETRICS ANALYST-C Attending Provider Active Team Status: Active Member Role Status Dates Dr. Moiz Mueller MD Primary Care Provider Active Carlos Alberto Reeves PA, PA-C Attending Provider, Referring Pr ovider Active Team Status: Inactive Member Role Status Dates Dr. Moiz Mueller MD Primary Care Provider Active Tila Caldwell BIOMETRICS ANALYST, BIOMETRICS ANALYST-C Attending Provider, Referring P rovider Active Team Status: Active Member Role Status Dates Dr. Moiz Mueller MD Primary Care Provider Active Tila Caldwell BIOMETRICS ANALYST, BIOMETRICS ANALYST-C Attending Provider Active Team Status: Active Member Role Status Dates Dr. Moiz Mueller MD Primary Care Provider Active Dr. Edd Berman MD Attending Provider Active Team Status: Active Member Role Status Dates Dr. Moiz Mueller MD Primary Care Provider Active Dr. Misael Conti MD Attending Provider Active Team Status: Active Member Role Status Dates Dr. Moiz Mueller MD Primary Care Pr ovider, Attending Provider, Referring Provider Active Team Status: Inactive Member Role Status Dates Dr. Moiz Mueller MD Primary Care Provider Active Dr. Barrie Pike DO Emergency Provider Active Team Status: Inactive Member Role Status Dates Dr. Moiz Mueller MD Primary Care Provider Active Dr. Misael Conti MD Attending Provider Active Team Status: Inactive Member Role Status Dates Dr. Moiz Mueller MD Primary Care Provider Active Dr. Barrie Pike DO Attending Provider, Scott hewitt Active Carbon Accountant Relationship Specialty Start Date End Date Moiz Mueller MD [address] [facility] [address] [place] [address] PCP - General Family Medicine 12/13/17 Carbon Accountant Relationship Specialty Start Date End Date Moiz Mueller MD [address] [facility] [address] [place] [address] PCP - General Family Medicine 12/13/17 Carbon Accountant Relationship Specialty Start Date End Date Moiz Mueller MD [address] [facility] [address] [place] [address] PCP - General Family Medicine 12/13/17 Team Status: Active Member Role/Relationship Status Dates Dr. Moiz Mueller MD Family Provider Active Dr. Moiz Mueller MD Primary Care Provider Active Team Status: Inactive Member Role/Relationship Status Dates Dr. Moiz Mueller MD Primary Care Provider Active Start: January 20, 2025 End: January 20, 2025 Dr. Moiz Mueller MD Attending Provider Active Start: January 20, 2025 End: January 20, 2025 Dr. Moiz Mueller MD Referring Provider Active Start: January 20, 2025 End: January 20, 2025 Team Status: Inactive Member Role/Relationship Status Dates Dr. Moiz Mueller MD Primary Care Provider Active Start: February 20, 2025 End: February 20, 2025 Dr. Moiz Mueller MD Attending Provider Active Start: February 20, 2025 End: February 20, 2025 Dr. Moiz Mueller MD Referring Provider Active Start: February 20, 2025 End: February 20, 2025 Source Comments (unrecognize d section and content) In the event this informatio n is protected by the Federal Confidentiality of Alcohol and Drug Abuse Patient Records regulations: The Federal rules restrict any use of the information to criminally investigate or prosecute any alcohol or drug abuse patient.[facility] the event this information is protected by the Federal Confidentiality of Alcohol and Drug Abuse Patient Records regulations: The Federal rules restrict any use of the information to criminally investigate or prosecute any alcohol or drug abuse patient.[facility] the event this information is protected by the Federal Confidentiality of Alcohol and Drug Abuse Patient Records regulations: The Federal rules restrict any use of the information to criminally investigate or prosecute any alcohol or drug abuse patient.[facility] Reason for Visit (unrecogniz ed section and content) Reason Comments Appointment Reason Comments Cystoscopy-1 (unrecognized sect ion and content) No Status Records FoundNo Status Records FoundNo Status Records Found INFORMATION SOURCE (unrecogn ized section and content) DATE CREATED AUTHOR 12/03/2024 [facility] DATE CREATED AUTHOR AUTHOR'S ORGANIZ ATION 02/27/2025 [facility] DATE CREATED AUTHOR AUTHOR'S ORGANIZ ATION 04/21/2025 [facility] FOR RECORDS PERTAINING TO PATIENTS WHO [...] BE BASED ON THE PRIMARY CLINICAL RECORDS. [facility] [employer] [facility]. provides no warranty or guarantee of the accuracy or completeness of information in this document.
== END | disposition home or self-care (01) ==
LOC: CVS 15:43
PROVIDERS: PCP Family Medicine; Referring Provider Family Medicine; Visit Provider Family Medicine
DX: M79.89 Other specified soft tissue disorders (principal)
CPT/HCPCS: 93971

== ENCOUNTER → 2025-05-04 | Outpatient (CLI) | payer MEDICARE, OTHER, SELFPAY ==
--- OUTSIDE RECORDS SUMMARY | 2025-05-04 07:01 | XMS RPT_ITS | CCD ---
Author Organization [facility] CliniSytx Care Team Providers Care Mobile Paramedical Examiner Name Role Phone Rosy Ibanez Unavailable Unavailable Lona RN, Unique A Unavailable Unavailable Lona RN, Unique A Unavailable Unavailable Alie Chauhan Unavailable Alie Chauhan Unavailable Lona RN, Unique A Unavailable Unavailable Lona RN, Unique A Unavailable Unavailable Omar MCKINNON, Moiz Hyde Unavailable DeFinis, Royerumi Y Unavailable Unavailable DeFinis, Harumi Y Unavailable Unavailable Alie Chauhan Unavailable Dr. Moiz Mueller Primary Care Provider [phone] Dr. Moiz Mueller Referring Provider Javi MCKINNON NP-Cory Adorno Attending Provider Dr. Moiz Mueller Primary Care Provider Dr. Moiz Mueller Referring Provider Javi MCKINNON NP-Cory Adorno Attending Provider Dr. Trino Mclean Attending Provider Javi MCKINNON NP-C Tila Referring Provider Dr. Moiz Mueller Primary Care Provider [phone] Dr. Moiz Mueller Referring Provider Dr. Edd Berman Attending Provider Dr. Moiz Mueller Primary Care Provider [phone]([facility] [phone] Dr. Moiz Mueller Referring Provider 1([facility])[phone] ADI Caldwell NPC Tila Attending Provider Dr. Moiz Mueller Primary Care Provider [phone] Dr. Moiz Mueller Referring Provider Javi INTERFACE ANALYST, INTERFACE ANALYST-C Tila Attending Provider Dr. Moiz Mueller Primary Care Provider [phone] Dr. Edd Berman Attending Provider Javi INTERFACE ANALYST, INTERFACE ANALYST-C Tila Attending Provider Dr. Moiz Mueller Referring Provider Dr. Moiz Mueller Primary Care Provider [phone] Javi INTERFACE ANALYST, INTERFACE ANALYST-C Tila Attending Provider Dr. Moiz Mueller Referring Provider Dr. Moiz Mueller Primary Care Provider [phone] Javi INTERFACE ANALYST, INTERFACE ANALYST-C Tila Attending Provider Moiz Mueller MD Primary Care Provider ANNETTA KRAUSE Attending Unavailable MOIZ MUELLER Primary Care Unavailable KYLAH DIMAS Attending Unavailable SELF Referring Unavailable MOIZ MUELLER Primary Care Unavailable Dr. Moiz Mueller MD Primary Care Provider [phone] Dr. Moiz Mueller MD Attending Provider [phone] Dr. Moiz Mueller MD Referring Provider [phone] Gallito JAMA, Misael Rivera Unavailable NONE, NONE Unavailable Moiz Garza MD Dr. Moiz Mueller MD Primary Care Physician Dr. Moiz Mueller MD Attending Physician [phone] Sarahi Eli MD Attending Physician Sarahi Eil MD Referring Provider Moiz Mueller Attending Unavailable Moiz Mueller Referring Unavailable Moiz Mueller Primary Care Unavailable Moiz Mueller Primary Care Unavailable Moiz Mueller Attending Unavailable Schinner, Moiz E Referring Unavailable Schinner, Moiz E Primary Care Unavailable Schinner, Moiz E Attending Unavailable Schinner, Moiz E Referring Unavailable Schinner, Moiz E Primary Care Unavailable Schinner, Moiz E Attending Unavailable Schinner, Moiz E Referring Unavailable Schinner, Moiz E Primary Care Unavailable Schinner, Moiz E Attending Unavailable Schinner, Moiz E Referring Unavailable Schinner, Moiz E Primary Care Unavailable Sarahi Eli Attending Unavailable Sarahi Eli Referring Unavailable Schinner, Moiz E Primary Care Unavailable Schinner, Moiz E Attending Unavailable Schinner, Moiz E Referring Unavailable Antonella, Edd Attending Unavailable Antonella, Edd Referring Unavailable Schinner, Moiz E Primary Care Unavailable Antonella, Edd Attending Unavailable Schinner, Moiz E Primary Care Unavailable Schinner, Moiz E Referring Unavailable Antonella, Castleton Attending Unavailable Antonella, Edd Referring Unavailable Schinner, Moiz E Primary Care Unavailable Antonella, Edd Consulting Unavailable Allergies Allergy Classification Reported Allergen(s) Allergy Type Date of Onset Reaction(s) Facility (20 sources) Ramipril; Translations: [RAMIPRIL] Drug Allergy 1 Other: See Comments [facility] (4 sources) nabumetone; Translations: [NABUMETONE] [facility] Work Phone: (1 source) Ramipril Drug Allergy 1 [facility] (1 source) Ramipril Drug Allergy 4 [facility] Repository Medications Current Medications Medication Drug Class(es) Dates Sig (Normalized) Sig (Original) Adult Aspirin Regimen 81 mg tablet,delayed release (DR/EC) (1 source) Start: 12-14-2020 take 1 tablet by mouth once daily Adult Aspirin Regimen 81 mg tablet,delayed release (DR/EC) 1 tablet by mouth once a day active Azra Owen AT [facility] amLODIPine 10 mg oral tablet (20 sources) Dihydropyridine Calcium Channel Arabella Start: 06-13-2024 End: 09-16-2024 take 1 tablet by mouth once daily Start: 01-26-2021 End: 06-13-2024 take 1 tablet [...] take 1 tablet by mouth once daily Start: 07-28-2011 take 1 tablet by bereket th once daily ASPIRIN 81 MG TABS One tablet by mouth daily ASPIRIN [id number] Aurelia M Bradley Start: 07-28-2011 take 1 tablet by bereket th once daily ASPIRIN EC 81 MG TBEC One tablet by mouth daily ASPIRIN [id number] Stephanie Sparrow RN Start: 06-21-2005 ASPIRIN 81 [...] BY MOUTH DAILY active Keyanna Alejo MA [facility] cephalexin 500 mg oral capsule (7 sources) Cephalosporin Antibacterial Start: 12-28-2021 cephALEXin 500 mg cap(s) (KEFLEX) cholecalciferol 0.05 mg oral capsule (15 sources) Vitamin D Start: 02-09-2022 take 1 capsule by mouth once daily codeine phosphate 2 mg/ml / guaiFENesin 20 mg/ml oral solution (3 sources) Opioid Agonist Start: 11-20-2016 take 5-10 mL by mouth four times daily as needed for cough codeine-guaiFENes in (ROBITUSSIN AC) 10-100 mg/5 mL syrup Indications: [...] by mouth once daily. 0 11/03/2016 Active ibuprofen 200 mg oral capsule (1 source) Nonsteroidal Anti-inflammatory Drug ibuprofen 200 mg capsule 2 capsule by mouth as needed for pain active Vilma Jaramillo [facility] [facility] levothyroxine sodium 0.088 mg oral tablet (20 sources) l-Thyroxine Start: 02-22-2023 Start: 02-22-2023 take 100 ug by mouth [...] by mouth once daily active Ayla Chauhan [facility] [place] [facility] take 1 capsule by mo uth once daily before breakfast levothyroxine 75 mcg [...] this medication. active Stephanie Moya PA-C, [address] [facility] [place] [address] [facility] [address] [facility] VITAMIN D3 TABLET (1 source) Start: 02-01-2021 take 1 tablet by mouth once daily VITAMIN D3 TABLET 4000 unit by mouth once a day active Azra Owen AT [facility] vitamin D3-vitamin K2 1,250-200 mcg cap (3 [...] once daily ALFUZOSIN HCL ER 10 MG [id number] One tablet by mouth daily ALFUZOSIN HCL [id number] Unique Zamorano RN atorvastatin 10 mg oral tablet (20 sources) HMG-CoA Reductase Inhibitor Start: 11-10-2013 End: 09-16-2024 take 1 tablet by mouth once daily Atorvastatin 10 mg tablet Discontinued 10 mg PO daily 90 3 September 06, 2021 6:29pm August 25, 2022 4:23pm azelastine hydrochloride 0.206 mg/actuat metered dose nasal spray (12 sources) Histamine-1 Receptor Antagonist Start: 08-25-2022 End: 02-22-2023 Azelastine 205.5 mcg (0.15 %) spray,non-aerosol Discontinued 2 NMA INTRANASAL DAILY August 25, 2022 1:00am February 22, 2023 11:01am Start: 08-25-2022 End: 02-22-2023 Azelastine Discontinued 2 SP RAY INTRANASAL DAILY August 25, 2022 1:00am February 22, 2023 11:01am ciprofloxacin 500 mg oral tablet (18 sources) Quinolone Antimicrobial Start: 01-21-2019 End: 01-28-2019 [...] tablet Discontinued 75 mg PO daily 90 2019 11:04am January 20, 2020 2:59pm Start: 11-13-2013 End: 11-20-2013 take 1 tablet by mouth once daily PLAVIX 75 MG TABS One tablet by mouth daily CLOPIDOGREL BISULFATE [id number] Cezar Franco MD diphenhydrAMINE hydrochloride 25 mg oral capsule (18 sources) Histamine-1 Receptor Antagonist Start: 10-12-2020 End: 12-28-2020 take 1 capsule by mouth twice daily as needed Diphenhydramine Hcl 25 MG capsule Discontinued 25 mg PO TWICE DAILY NEEDED as needed for Angioedema 30 0 October 12, 2020 11:21am December 28, 2020 4:01pm DOXYCYCLINE HYCLATE CAPS (20 sources) Tetracycline-clas s Drug Start: 04-23-2014 End: 01-22-2015 DOXYCYCLINE HYCLATE CAPS 20mg daily DOXYCYCLINE HYCLATE CAPS [id number] Edd Berman MD Start: 04-23-2014 DOXYCYCLINE HY CLATE CAPS 20mg daily DOXYCYCLINE HYCLATE CAPS [id number] Edd Berman MD Start: 04-23-2014 End: 01-22-2015 DOXYCYCLINE HYCLATE CAPS 20m g daily DOXYCYCLINE HYCLATE CAPS [id number] Edd Berman MD [id number] 0.3 ml EPINEPHrine 1 mg/ml auto-injector (18 sources) alpha-Adrenergic Agonist, beta-Adrenergic Agonist, Catecholamine Start: 10-12-2020 End: 08-25-2022 Epinephrine 0.3 MG/0.3 ML auto-injector Discontinued 0.3 mg IJ ONE TIME 2 October 12, 2020 12:00am August 25, 2022 3:27pm famotidine 20 mg oral tablet (18 sources) Histamine-2 Receptor Antagonist Start: 10-12-2020 End: 12-28-2020 take 1 tablet by mouth twice daily Famotidine 20 MG tablet Discontinued 20 mg PO TWICE A DAY 30 October 12, 2020 12:00am December 28, 2020 4:02pm hydroCHLOROthiazide 25 mg oral tablet (20 sources) Thiazide Diuretic Start: 08-27-2020 End: 09-16-2024 take 1 tablet by mouth once daily Hydrochlorothiazide 25 mg tablet Discontinued 25 mg PO DAILY 60 October 18, 2020 1:33pm December 28, 2020 4:31pm Start: 11-07-2013 End: 10-15-2017 take 1 capsule by mouth once daily Hydrochlorothiazide 12.5 MG capsule Discontinued 12.5 mg PO DAILY November 07, 2013 12:00am October 15, 2017 7:38pm Start: 07-28-2011 End: 02-15-2016 take 1 tablet by mouth once daily HYDROCHLOROTHIAZIDE 12.5 MG TABS One tablet by mouth daily HYDROCHLOROTHIAZIDE [id number] Edd Berman MD levocetirizine dihydrochloride 5 mg oral tablet (19 sources) Histamine-1 Receptor Antagonist Start: 12-14-2020 End: [...] One tablet by mouth daily MULTIPLE VITAMIN [id number] Aurelia Huerta Start: 07-28-2011 End: 10-02-2012 take 1 tablet by mouth once daily MULTIVITAMINS TABS One tablet by mouth daily MULTIPLE VITAMIN [id number] Unique Zamorano RN MULTIPLE VITAMIN (10 sources) Start: 07-28-2011 take 1 tablet by mouth once daily MULTIVITAMINS TABS One tablet by mouth daily MULTIPLE VITAMIN [id number] Aurelia Huerta Start: 07-28-2011 End: 10-02-2012 take 1 tablet by mouth once daily MULTIVITAMINS TABS One tablet by mouth daily MULTIPLE VITAMIN [id number] Unique Zamorano RN predniSONE 20 mg oral tablet (20 sources) Start: 10-11-2023 End: 06-13-2024 take 1 tablet by mouth once daily Prednisone 20 mg tablet Discontinued 20 mg PO DAILY 5 October 11, 2023 12:00am June 13, 2024 2:13pm Start: 10-12-2020 End: 12-28-2020 Prednisone 20 MG tablet Disc ontinued 0 mg PO DAILY Taper: Frequency: DAILY@0800 Days: 3 Hours: 0 Dose: 40 Frequency: DAILY@0800 Days: 3 Hours: 0 Dose: 30 Frequency: DAILY@0800 Days: 3 Hours: 0 Dose: 20 Frequency: DAILY@0800 Days: 3 Hours: 0 Dose: 10 October 12, 2020 12:00am December 28, 2020 4:02pm With food Please contact the information source for Taper Schedule details. ramipril 10 mg oral capsule (20 sources) Angiotensin Converting Enzyme Inhibitor Start: 10-02-2012 take 1 tablet by mouth once daily ALTACE 5 MG CAPS One tablet by mouth daily RAMIPRIL [id number] Edd Berman MD Start: 10-02-2012 take 1 tablet by bereket th once daily ALTACE 5 MG CAPS One tablet by mouth daily RAQUELIPRIL [id number] Edd Berman MD Start: 07-28-2011 take 1 tablet by bereket th once daily ALTACE 10 MG CAPS One tablet by mouth daily RAMIPRIL [id number] Edd Berman MD Start: 09-19-2006 End: 08-27-2020 take 1 capsule by mouth once daily Ramipril 10 mg capsule Discontinued 10 mg PO DAILY 90 3 October 29, 2019 1:40pm January 20, 2020 2:59pm Problems Active Problems Problem Classification Problem Date Documented Date Episodic/Chronic Cardiac dysrhythmias (8 sources) Multiple premature ventricular complexes; Translations: [Ventricular premature depolarization] 05-21-2023 Chronic Cardiac dysrhythmias (20 sources) Bradycardia; Translations: [Bradycardia, unspecified] 02-22-2023 Episodic Conditions associated with dizziness or vertigo (17 sources) Dizziness; Translations: [Dizziness and giddiness] Episodic Conduction disorders (20 sources) Atrioventricular block; Translations: [Right bundle branch block AND left anterior fascicular block] Onset: 5 07-28-2011 Chronic Coronary atherosclerosis and other heart disease (20 sources) Coronary arteriosclerosis; Translations: [Coronary atherosclerosis] Onset: 4 11-20-2013 Chronic Diabetes mellitus without complication (1 source) Impaired glucose tolerance (oral); Translations: [Impaired glucose tolerance (oral)] Onset: 5 Episodic Disorders of lipid metabolism (20 sources) [...] Translations: [Myofascial pain] Onset: 5 Episodic Other connective tissue disease (1 source) Other specified soft tissue disorders; Translations: [Other specified soft tissue disorders] Onset: 5 Episodic Other injuries and conditions due to external causes (20 sources) Angioedema; Translations: [Angioneurotic edema, initial encounter] 12-25-2020 Episodic Other nervous system disorders (2 sources) Sleep related bruxism; 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] Onset: 5 11-14-2024 Chronic Other nervous system disorders (1 source) Sleep related bruxism; 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] Onset: 5 Chronic Thyroid disorders (2 sources) Hypothyroidism, unspecified; Translations: [Hypothyroidism, unspecified] Onset: 5 Chronic Unclassified (10 sources) Long-term drug therapy; Translations: [Other fpc (current) drug therapy] Onset: 4 08-05-2015 Unclassified (1 source) Finding of body mass index; Translations: [Body mass index (BMI) 26.0-26.9, adult] Onset: 4 12-18-2013 Urinary tract infections (18 sources) Urinary tract infectious disease; Translations: [Urinary [...] (current) use of other medications; Translations: [Other watermelon inspector (current) drug therapy] Onset: 4 11-13-2013 Episodic [...] Test Name Value Interpretation Reference Range Facility Venous duplex ultrasound rep ortOrdered By: Indio Llamas on 04-25-2025 US Vein [facility] [address] [place] [address] Venous Duplex US, Unilateral 04/24/25 1557 MR#: [id number] Acct: [id number] Name: MESSI VILLA Rep #:[id number] : 1945 80 From: Indio Llamas MD Attending Dr: Dr. Sarahi Eli MD S tatus: REG CLI Ordering Dr: Sarahi Eli MD Date: Location: CVS Sex: M C Admitted: Reason For Study Reason For Study: LLE Swelling Procedure LEFT This is a venous duplex using B-mode, color flow and GSV is normal. spectral Doppler. CFV is compressible, spontaneous, phasic, competent, Exam performed in department. and demonstrates normal augmentation. The exam was diagnostic. FV is compressible, spontaneous, phasic, competent A preliminary report was called and/or faxed to and demonstrates normal augmentation. John / Dr Eli. POP V is compressible, spontaneous, phasic, competent and demonstrates normal augmentation. T/P Trunk is compressible. PTV is compressible. LT PerV is compressible. VL/Venous Duplex US, Unilateral Interpretation Summary Deep veins of the left lower extremity are patent and compressible segmentally. There is no evidence of left lower extremity deep vein thrombosis. Valvular competence appears intact within the proximal deep venous system on the left . The left great saphenous vein appears patent and compressible segmentally. Ordering Physician: Sarahi Eli Referring Physician: Sarahi Eli Performed By: Merlin Harp, T 04/25/25 1151 Date _ Indio Llamas MD CC: Dr. Sarahi Eli MD; Dr. Moiz Mueller MD ~ Date Dictated: 04/24/25 1557 Date Transcribed: 04/25/25 115 Butadiene Convertor Operator: Signed [facility] Other Phone: Venous Duplex US, Unilateral on 2025 Venous Duplex US, Unilateral [facility] [address] [place] [address] Venous Duplex US, Unilateral 04/24/257 MR#: [id number] Acct: [id number] Name: MESSI VILLA Rep #: [id number] : 1945 80 From: Indio Llamas MD Attending Dr: Dr. Sarahi Eli MD Status: REG C Ordering Dr: Sarahi Eli MD Date: 04/24/25 Location: CVS Sex: M C Admitted: Reason For Study Reason For Study: LLE Swelling Procedure LEFT This is a venous duplex using B-mode, color flow and GSV is normal. spectral Doppler. CFV is compressible, spontaneous, phasic, competent, Exam performed in department. and demonstrates normal augmentation. The exam was diagnostic. FV is compressible, spontaneous, phasic, competent A preliminary report was called and/or faxed to and demonstrates normal augmentation. John / Dr Eli. POP V is compressible, spontaneous, phasic, competent and demonstrates normal augmentation. T/P Trunk is compressible. PTV is compressible. LT PerV is compressible. VL/Venous Duplex US, Unilateral Interpretation Summary Deep veins of the left lower extremity are patent and compressible segmentally. There is no evidence of left lower extremity deep vein thrombosis. Valvular competence appears intact within the proximal deep venous system on the left . The left great saphenous vein appears patent and compressible segmentally. Ordering Physician: Sarahi Eli Referring Physician: Sarahi Eli Performed By: Merlin Harp, NAIMA 04/25/25 1151 Date Indio Llamas MD CC: Dr. Saraih Eli MD; Dr. Moiz Mueller MD Date Dictated: 04/24/25 1557 Date Transcribed: 04/25/25 115 Butadiene Convertor Operator: Signed [facility] [place] [facility] 04-20-2025 [facility] Telephone (LASHA) MESSI VILLA ([id number]) 1945 M Date Time Provider Department 04/20/25 [...] to send it as a document in Utan instead of sending as an email. With the instructions for you to look at it. Just wanted you to know what to expect from his patient. [facility] Allergies As of Date: 04/20/2025 Noted Allergy Reaction RAMIPRIL 12/01/2020 14 - Other: See Comments Comments: Tongue swelling. RELAFEN (NABUMETONE) 06/20/2005 8 - GI Upset Date Reviewed: 11/14/2024 Reviewed by: Thomas Mccartney RD - Fully Assessed Reason for Visit: Patient Question [4118] Prescriptions as of 04/20/2025 - vitamin D3-vitamin [...] Myofascial pain [M79.18] 11/14/2024 Encounter Status:Closed by MIR MELCHOR on 04/20/25 Normal [facility] CBC W/Diff, Automatedon 07-2 Absolute Neut Normal 2.0-7.7 [facility] Comment on above: Order Comment: Order Date: 05/13/24 Order Info: 0786-1 - CMP Result Comment: SOLANGET OR ERVIN ONLY WANTED T4F Performed By: #### L [id number] #### [facility] [address] [place], [address] HCT Normal 40-54 [facility] Comment on above: Order Comment: Order Date: 05/13/24 Order Info: 0786-1 - CMP Result Comment: DOCT OR SCHINNER ONLY WANTED T4F Performed By: #### L [id number] #### [facility] [address] [place], [address] HGB Normal 13.0-16.5 [facility] Comment on above: Order Comment: Order Date: 05/13/24 Order Info: 0786-1 - CMP Result Comment: DOCT OR SCHINNER ONLY WANTED T4F Performed By: #### L [id number] #### [facility] [address] [place], [address] MCH Normal 27.0-32.0 [facility] Comment on above: Order Comment: Order Date: 05/13/24 Order Info: 0786-1 - CMP Result Comment: DOCT OR SCHINNER ONLY WANTED T4F Performed By: #### L [id number] #### [facility] [address] [place], [address] MCHC Normal 32-36 [facility] Comment on above: Order Comment: Order Date: 05/13/24 Order Info: 0786-1 - CMP Result Comment: DOCT OR SCHINNER ONLY WANTED T4F Performed By: #### L [id number] #### [facility] [address] [place], [address] MCV Normal 80-94 [facility] Comment on above: Order Comment: Order Date: 05/13/24 Order Info: 0786-1 - CMP Result Comment: DOCT OR SCHINNER ONLY WANTED T4F Performed By: #### L [id number] #### [facility] [address] [place], [address] NEUT% Normal 47-70 [facility] Comment on above: Order Comment: Order Date: 05/13/24 Order Info: 0786-1 - CMP Result Comment: DOCT OR SCHINNER ONLY WANTED T4F Performed By: #### L [id number] #### [facility] [address] [place], [address] PLT Normal 150-450 [facility] Comment on above: Order Comment: Order Date: 05/13/24 Order Info: 07-1 - CMP Result Comment: DOCT OR SCHINNER ONLY WANTED T4F Performed By: #### L [id number] #### [facility] [address] [place], [address] RBC Normal 4.6-6.2 [facility] Comment on above: Order Comment: Order Date: 05/13/24 Order Info: 785-1 - CMP Result Comment: DOCT OR SCHINNER ONLY WANTED T4F Performed By: #### L [id number] #### [facility] [address] [place], [address] RDW CV Normal 11.6-14.6 [facility] Comment on above: Order Comment: Order Date: 05/13/24 Order Info: 785-1 - CMP Result Comment: DOCT OR SCHINNER ONLY WANTED T4F Performed By: #### L [id number] #### [facility] [address] [place], [address] RDW SD Normal 35.1-43.9 [facility] Comment on above: Order Comment: Order Date: 05/13/24 Order Info: 07-1 - CMP Result Comment: DOCT OR SCHINNER ONLY WANTED T4F Performed By: #### L [id number] #### [facility] [address] [place], [address] WBC Normal 4.4-11.0 [facility] Comment on above: Order Comment: Order Date: 05/13/24 Order Info: 07-1 - CMP Result Comment: DOCT OR SCHINNER ONLY WANTED T4F Performed By: #### L [id number] #### [facility] [address] [place], [address] T4 Free Directon 02-20-2025 T4 FREE DIRECT 1.50 ng/dL High 0.76-1.46 [facility] Comment on above: Order Comment: Order Date: 05/13/24 Order Info: 0786-1 - CMP Performed By: #### L [id number] #### [facility] [address] [place], [address] T4 freeOrdered By: Moiz pina on 02-20-2025 Free T4 [Mass/Vol] 1.50 ng/dL High 0.76-1.46 [facility] Relevant diagnostic tests/la boratory data Narrativeon 02-18-2025 Fall risk assessment no [facility] [employer] Work Phone: MEDS REVIEW Documentation of current medications (procedure) [employer]. Work Phone: MEDS REVIEWD Medications reviewed with changes [employer]. Work Phone: MRI HX of the left shoulder on 02/18/2025 at [facility] [employer]. Work Phone: Absolute lymphocyte countOrd ered By: Moiz Mueller on 01-20-2025 Lymphocytes Auto (Unsp spec) [#/Vol] 1.65 10*3/uL 0.83-4.51 [facility] Absolute neutrophil countOrd ered By: Moiz Mueller on 01-20-2025 Neutrophils (Bld) [#/Vol] 3.2 10*3/uL 2.0-7.7 [facility] Anion gap in Serum or Plasma Ordered By: Moiz Mueller on 01-20-2025 Anion gap [Moles/Vol] 12 mmol/L 5- [facility] Automated lymphocyte count a s percentage of total leukocytesOrdered By: Moiz Mueller on 01-20-2025 Lymphocytes/100 WBC Auto (Unsp spec) 29.0 % 19-41 [facility] BUN/creatinine ratioOrdered By: Moiz Mueller on 01-20-2025 Urea nitrogen/Creatinine [Mass ratio] 23.1 mg/mg High 10-20 [facility] Basophil percentageOrdered B y: Moiz Mueller on 01-20-2025 Basophils/100 WBC (Bld) 0.7 % 0-1 [facility] Bilirubin Test strip Ql (U)O rdered By: Moiz Mueller on 01-20-2025 Bilirubin Ql (U) Negative Negative [facility] Bilirubin, totalOrdered By: Moiz Mueller on 01-20-2025 Bilirubin [Mass/Vol] 0.64 mg/dL 0.00-1.30 [facility] CBC W/Diff, Automatedon 12-29 Absolute Lymph 1.65 X10 3/uL Normal 0.83-4.51 [facility] Comment on above: Order Comment: Order Date: 09/11/24 Order Info: 0184-1 - CBCD Performed By: #### L 501.9520, L500.4050, L506.0400, L500.4100, L100.0100 #### [facility] [address] [place], [address] Absolute Neut 3.2 X10 3/uL Normal 2.0-7.7 [facility] Comment on above: Order Comment: Order Date: 09/11/24 Order Info: 0184-1 - CBCD Performed By: #### L 501.9520, L500.4050, L506.0400, L500.4100, L100.0100 #### [facility] [address] [place], [address] Basophils/100 WBC (Bld) 0.7 % Normal 0-1 [facility] Comment on above: Order Comment: Order Date: 09/11/24 Order Info: 0184-1 - CBCD Performed By: #### L 501.9520, L500.4050, L506.0400, L500.4100, L100.0100 #### [facility] [address] [place], [address] Eosinophils/100 WBC (Bld) 3.7 % Normal 0-5 [facility] Comment on above: Order Comment: Order Date: 09/11/24 Order Info: 0184-1 - CBCD Performed By: #### L 501.9520, L500.4050, L506.0400, L500.4100, L100.0100 #### [facility] [address] [place], [address] Erythrocyte distribution width (RBC) [Ratio] 13.1 % Normal 11.6-14.6 [facility] Comment on above: Order Comment: Order Date: 09/11/24 Order Info: 0184-1 - CBCD Performed By: #### L [id number], L500.4050, L506.0400, L500.4100, L100.0100 #### [facility] [address] [place], [address] Hematocrit (Bld) [Volume fraction] 41.8 % Normal 40-54 [facility] Comment on above: Order Comment: Order Date: 09/11/24 Order Info: 0184-1 - CBCD Performed By: #### L 501.9520, L500.4050, L506.0400, L500.4100, L100.0100 #### [facility] [address] [place], [address] Hemoglobin (Bld) [Mass/Vol] 14.6 g/dL Normal 13.0-16.5 [facility] Comment on above: Order Comment: Order Date: 09/11/24 Order Info: 0184-1 - CBCD Performed By: #### L 501.9520, L500.4050, L506.0400, L500.4100, L100.0100 #### [facility] [address] [place], [address] IG% 0.200 Normal 0.0-0.9 [facility] Comment on above: Order Comment: Order Date: 09/11/24 Order Info: 0184-1 - CBCD Result Comment: IG% - Immature Granulocytes (promyelocytes, myelocytes and metamyelocytes) > 1% indicates that a LEFT SHIFT is Present. Performed By: #### L 501.9520, L500.4050, L506.0400, L500.4100, L100.0100 #### [facility] [address] [place], [address] Lymphocytes/100 WBC (Bld) 29.0 % Normal 19-41 [facility] Comment on above: Order Comment: Order Date: 09/11/24 Order Info: 0184-1 - CBCD Performed By: #### L 501.9520, L500.4050, L506.0400, L500.4100, L100.0100 #### [facility] [address] [place], [address] MCH (RBC) [Entitic mass] 32.5 pg High 27.0-32.0 [facility] Comment on above: Order Comment: Order Date: 09/11/24 Order Info: 0184- - CBCD Performed By: #### L 501.9520, L500.4050, L506.0400, L500.4100, L100.0100 #### [facility] [address] [place], [address] MCHC (RBC) [Mass/Vol] 34.9 g/dL Normal 32-36 [facility] Comment on above: Order Comment: Order Date: 09/11/24 Order Info: 0184- - CBCD Performed By: #### L 501.9520, L500.4050, L506.0400, L500.4100, L100.0100 #### [facility] [address] [place], [address] MCV (RBC) [Entitic vol] 93.1 fL Normal 80-94 [facility] Comment on above: Order Comment: Order Date: 09/11/24 Order Info: 0184-1 - CBCD Performed By: #### L 501.9520, L500.4050, L506.0400, L500.4100, L100.0100 #### [facility] [address] [place], [address] Monocytes/100 WBC (Bld) 10.6 % High 0-10 [facility] Comment on above: Order Comment: Order Date: 09/11/24 Order Info: 0184-1 - CBCD Performed By: #### L 501.9520, L500.4050, L506.0400, L500.4100, L100.0100 #### [facility] [address] [place], [address] Neutrophils/100 WBC (Bld) 55.8 % Normal 47-70 [facility] Comment on above: Order Comment: Order Date: 09/11/24 Order Info: 0184-1 - CBCD Performed By: #### L 501.9520, L500.4050, L506.0400, L500.4100, L100.0100 #### [facility] [address] [place], [address] Nucleated RBC (Bld) [#/Vol] 0 10*3/uL Normal 0-5 [facility] Comment on above: Order Comment: Order Date: 09/11/24 Order Info: 0184-1 - CBCD Performed By: #### L 501.9520, L500.4050, L506.0400, L500.4100, L100.0100 #### [facility] [address] [place], [address] Platelet mean volume (Bld) [Entitic vol] 10.6 fL Normal 6.2-12.0 [facility] Comment on above: Order Comment: Order Date: 09/11/24 Order Info: 0184-1 - CBCD Performed By: #### L 501.9520, L500.4050, L506.0400, L500.4100, L100.0100 #### [facility] [address] [place], [address] Platelets (Bld) [#/Vol] 240 10*3/uL Normal 150-450 [facility] Comment on above: Order Comment: Order Date: 09/11/24 Order Info: 0184-1 - CBCD Performed By: #### L 501.9520, L500.4050, L506.0400, L500.4100, L100.0100 #### [facility] [address] [place], [address] RBC (Bld) [#/Vol] 4.49 10*6/uL Low 4.6-6.2 [facility] Comment on above: Order Comment: Order Date: 09/11/24 Order Info: 0184-1 - CBCD Performed By: #### L 501.9520, L500.4050, L506.0400, L500.4100, L100.0100 #### [facility] [address] [place], [place], [id number] RDW SD 44.9 fl High 35.1-43.9 [facility] Comment on above: Order Comment: Order Date: 09/11/24 Order Info: 0184-1 - CBCD Performed By: #### L 501.9520, L500.4050, L506.0400, L500.4100, L100.0100 #### [facility] [address] [place], [address] WBC (Bld) [#/Vol] 5.7 10*3/uL Normal 4.4-11.0 [facility] Comment on above: Order Comment: Order Date: 09/11/24 Order Info: 0184-1 - CBCD Performed By: #### L 501.9520, L500.4050, L506.0400, L500.4100, L100.0100 #### [facility] [address] [place], [place], [id number] Calculated very low density lipoprotein (VLDL) cholesterol measurementOrdered By: Moiz Mueller on 01-20-2025 Calculated very low density lipoprotein (VLDL) cholesterol measurement 14 mg/dL 5-40 [facility] Carbon dioxide, total [Moles /volume] in Central venous bloodOrdered By: Moiz Mueller on 01-20-2025 CO2 [Moles/Vol] 25.9 mmol/L 21.0-32.0 [facility] Chloride assayOrdered By: Annabella Mueller on 01-20-2025 Chloride [Moles/Vol] 102 mmol/L 98-108 [facility] Comprehensive Metabolic Prof ilon 01-20-2025 Albumin [Mass/Vol] 4.1 g/dL Normal 3.4-4.8 [facility] Comment on above: Order Comment: Order Date: 09/11/24 Order Info: 86-1 - CMP Order Info: [id number] - LIPID Order Info: 3 - TSH Order Info: 7 - T4F Performed By: #### L 501.9520, L500.4050, L506.0400, L500.4100, L100.0100 #### [facility] [address] [place], [place], [address] Albumin/Globulin [Mass ratio] 1.3 {ratio} Normal 0.9-2.4 [facility] Comment on above: Order Comment: Order Date: 09/11/24 Order Info: 785-1 - CMP Order Info: [id number] - LIPID Order Info: 3 - TSH Order Info: 7 - T4F Performed By: #### L 501.9520, L500.4050, L506.0400, L500.4100, L100.0100 #### [facility] [address] [place], [address] ALK PHOS 89 U/L Normal 40-129 [facility] Comment on above: Order Comment: Order Date: 09/11/24 Order Info: 0786-1 - CMP Order Info: [id number] - LIPID Order Info: 3 - TSH Order Info: [id number] - T4F Performed By: #### L 501.9520, L500.4050, L506.0400, L500.4100, L100.0100 #### [facility] [address] [place], [address] ALT [Catalytic activity/Vol] 15 U/L Normal <=46 [facility] Comment on above: Order Comment: Order Date: 09/11/24 Order Info: 0786-1 - CMP Order Info: [id number] - LIPID Order Info: 301-3 - TSH Order Info: 3024-7 - T4F Performed By: #### L 501.9520, L500.4050, L506.0400, L500.4100, L100.0100 #### [facility] [address] [place], [address] AST [Catalytic activity/Vol] 28 U/L Normal <=37 [facility] Comment on above: Order Comment: Order Date: 09/11/24 Order Info: 785-1 - CMP Order Info: [id number] - LIPID Order Info: 3016-3 - TSH Order Info: 3024-7 - T4F Performed By: #### L 501.9520, L500.4050, L506.0400, L500.4100, L100.0100 #### [facility] [address] [place], [address] Bilirubin [Mass/Vol] 0.64 mg/dL Normal 0.00-1.30 [facility] Comment on above: Order Comment: Order Date: 09/11/24 Order Info: 0786-1 - CMP Order Info: [id number] - LIPID Order Info: 6-3 - TSH Order Info: 3024-7 - T4F Performed By: #### L 501.9520, L500.4050, L506.0400, L500.4100, L100.0100 #### [facility] [address] [place], [address] BUN/CRE 23.1 RATIO High 10-20 [facility] Comment on above: Order Comment: Order Date: 09/11/24 Order Info: 0786-1 - CMP Order Info: [id number] - LIPID Order Info: [id number] - TSH Order Info: 3024-7 - T4F Performed By: #### L 501.9520, L500.4050, L506.0400, L500.4100, L100.0100 #### [facility] [address] [place], [address] Calcium [Mass/Vol] 9.4 mg/dL Normal 7.6-11.0 [facility] Comment on above: Order Comment: Order Date: 09/11/24 Order Info: 0786-1 - CMP Order Info: [id number] - LIPID Order Info: [id number] - TSH Order Info: 3024-7 - T4F Performed By: #### L 501.9520, L500.4050, L506.0400, L500.4100, L100.0100 #### [facility] [address] [place], [address] Chloride [Moles/Vol] 102 mmol/L Normal 98-108 [facility] Comment on above: Order Comment: Order Date: 09/11/24 Order Info: 07-1 - CMP Order Info: [id number] - LIPID Order Info: 3016-3 - TSH Order Info: 3024-7 - T4F Performed By: #### L 501.9520, L500.4050, L506.0400, L500.4100, L100.0100 #### [facility] [address] [place], [address] CO2 [Moles/Vol] 25.9 mmol/L Normal 21.0-32.0 [facility] Comment on above: Order Comment: Order Date: 09/11/24 Order Info: 0786-1 - CMP Order Info: [id number] - LIPID Order Info: 3016-3 - TSH Order Info: 3024-7 - T4F Performed By: #### L 501.9520, L500.4050, L506.0400, L500.4100, L100.0100 #### [facility] [address] [place], [address] Creatinine [Mass/Vol] 1.20 mg/dL Normal 0.70-1.20 [facility] Comment on above: Order Comment: Order Date: 09/11/24 Order Info: 785-1 - CMP Order Info: - LIPID Order Info: 3 - TSH Order Info: 3023-7 - T4F Performed By: #### L 501.9520, L500.4050, L506.0400, L500.4100, L100.0100 #### [facility] [address] [place], [address] GAP 12 Normal 5-15 [facility] Comment on above: Order Comment: Order Date: 09/11/24 Order Info: 785- - CMP Order Info: - LIPID Order Info: 3 - TSH Order Info: 7 - T4F Performed By: #### L 501.9520, L500.4050, L506.0400, L500.4100, L100.0100 #### [facility] [address] [place], [place], [address] GFR/1.73 sq M.predicted among non-blacks MDRD (S/P/Bld) [Vol rate/Area] 62 mL/min/{1.73_m2} Normal >60 [facility] Comment on above: Order Comment: Order Date: 09/11/24 Order Info: 785-07 - CMP Order Info: [id number] - LIPID Order Info: 3 - TSH Order Info: 7 - T4F Result Comment: mL/m in/1.73m2 CKD-EPI Creatinine Equation (2020) Performed By: #### L 501.9520, L500.4050, L506.0400, L500.4100, L100.0100 #### [facility] [address] [place], [place], [address] Globulin (S) [Mass/Vol] 3.1 g/dL Normal 2.2-4.2 [facility] Comment on above: Order Comment: Order Date: 09/11/24 Order Info: 785-1 - CMP Order Info: [id number] - LIPID Order Info: [id number] - TSH Order Info: 7 - T4F Performed By: #### L 501.9520, L500.4050, L506.0400, L500.4100, L100.0100 #### [facility] [address] [place], [address] Glucose [Mass/Vol] 95 mg/dL Normal 70-99 [facility] Comment on above: Order Comment: Order Date: 09/11/24 Order Info: 86-1 - CMP Order Info: [id number] - LIPID Order Info: [id number] - TSH Order Info: 7 - T4F Performed By: #### L 501.9520, L500.4050, L506.0400, L500.4100, L100.0100 #### [facility] [address] [place], [address] Potassium [Moles/Vol] 3.8 mmol/L Normal 3.3-5.1 [facility] Comment on above: Order Comment: Order Date: 09/11/24 Order Info: 785-07 - CMP Order Info: [id number] - LIPID Order Info: [id number] - TSH Order Info: 7 - T4F Performed By: #### L 501.9520, L500.4050, L506.0400, L500.4100, L100.0100 #### [facility] [address] [place], [address] Sodium [Moles/Vol] 140 mmol/L Normal 133-145 [facility] Comment on above: Order Comment: Order Date: 09/11/24 Order Info: 07-1 - CMP Order Info: [id number] - LIPID Order Info: 3 - TSH Order Info: 3024-7 - T4F Performed By: #### L 501.9520, L500.4050, L506.0400, L500.4100, L100.0100 #### [facility] [address] [place], [address] T PROT 7.2 g/dL Normal 5.9-8.4 [facility] Comment on above: Order Comment: Order Date: 09/11/24 Order Info: 0786-1 - CMP Order Info: [id number] - LIPID Order Info: [id number] - TSH Order Info: [id number] - T4F Performed By: #### L 501.9520, L500.4050, L506.0400, L500.4100, L100.0100 #### [facility] [address] [place], [place], [address] Urea nitrogen [Mass/Vol] 28 mg/dL High 4-19 [facility] Comment on above: Order Comment: Order Date: 09/11/24 Order Info: 0786-1 - CMP Order Info: [id number] - LIPID Order Info: 6-3 - TSH Order Info: 3027 - T4F Performed By: #### L 501.9520, L500.4050, L506.0400, L500.4100, L100.0100 #### [facility] [address] [place], [place], [address] Eosinophil percentageOrdered By: Moiz Mueller on 01-20-2025 Eosinophils/100 WBC (Bld) 3.7 % 0-5 [facility] Erythrocyte distribution wid th ratioOrdered By: Moiz Mueller on 01-20-2025 Erythrocyte distribution width (RBC) [Ratio] 13.1 % 11.6-14.6 [facility] Erythrocyte distribution wid th standard deviationOrdered By: Moiz Mueller on 01-20-2025 Erythrocyte distribution width (RBC) [Ratio] 44.9 fl High 35.1-43.9 [facility] Glomerular filtration rate ( GFR) estimation/1.73 sq m using serum, plasma, or whole bOrdered By: Moiz Mueller on 01-20-2025 GFR/1.73 sq M.predicted among non-blacks MDRD (S/P/Bld) [Vol rate/Area] 62 mL/min/{1.73_m2} >60 [facility] Comment on above: mL/min/1.73m2 CKD-EP I Creatinine Equation (2020) Hematocrit Auto (Bld) [Volum e fraction]Ordered By: Moiz Mueller on 01-20-2025 Hematocrit (Bld) [Volume fraction] 41.8 % 40-54 [facility] Hemoglobin measurementOrdere d By: Moiz Mueller on 01-20-2025 Hemoglobin (Bld) [Mass/Vol] 14.6 g/dL 13.0-16.5 [facility] Immature granulocytes/100 WB C Auto (Bld)Ordered By: Moiz Mueller on 01-20-2025 Immature granulocytes/100 WBC (Bld) 0.200 % 0.0-0.9 [facility] Comment on above: IG% - Immature Granu locytes (promyelocytes, myelocytes and metamyelocytes) > 1% indicates that a LEFT SHIFT is Present. Ketones Test strip Ql (U)Ord ered By: Moiz Mueller on 01-20-2025 Ketones Ql (U) Negative Negative [facility] LDL calc ser/plasOrdered By: Moiz Mueller on 01-20-2025 Cholesterol in LDL [Mass/Vol] 63 mg/dL [facility] Comment on above: Otwvbycken=747-146 m g/dL & Higher Xlve=864 mg/dL or greater Laboratory - Chemistry and C hemistry - challengeOrdered By: Moiz Mueller on 01-20-2025 AST [Catalytic activity/Vol] 28 U/L <38 [facility] Lipid Profileon 01-20-2025 CHOL:HDL 2.37 Normal [facility] Comment on above: Order Comment: Order Date: 09/11/24 Order Info: 0786-1 - CMP Order Info: [id number] - LIPID Order Info: [id number] - TSH Order Info: 3024-7 - T4F Performed By: #### L 501.9566, L500.4050, L506.0400, L500.4100, L100.0100 #### [facility] [address] [place], [address] Cholesterol [Mass/Vol] 132 mg/dL Normal <=200 [facility] Comment on above: Order Comment: Order Date: 09/11/24 Order Info: 0786 - CMP Order Info: [id number] - LIPID Order Info: [id number] - TSH Order Info: 3024-01 T4F Result Comment: Chol esterol level, Desirable <200 mg/dL Borderline high cholesterol 200-239 mg/dL High cholesterol >=240 mg/dL Recommendations of the NCEP Adult Treatment Panel for the following risk-cutoff thresholds for the [place] population. Performed By: #### L 501.9520, L500.4050, L506.0400, L500.4100, L100.0100 #### [facility] [address] [place], [address] Cholesterol in HDL [Mass/Vol] 56 mg/dL Normal [facility] Comment on above: Order Comment: Order Date: 09/11/24 Order Info: 0786 - CMP Order Info: - LIPID Order Info: [id number] - TSH Order Info: 3024-01 T4F Result Comment: [place] onal Cholesterol Education Program (NCEP) guidelines: <40 mg/dL: Low HDL-cholesterol (major risk factor for CHD) >= 60 mg/dL: High HDL-cholesterol (negative risk factor for CHD) HDL-cholesterol is affected by a number of factors, e.g. smoking, exercise, hormones, sex and age. Performed By: #### L 501.9520, L500.4050, L506.0400, L500.4100, L100.0100 #### [facility] [address] [place], [address] Cholesterol in LDL [Mass/Vol] 63 mg/dL Normal [facility] Comment on above: Order Comment: Order Date: 09/11/24 Order Info: 0786 - CMP Order Info: - LIPID Order Info: [id number] - TSH Order Info: 3024-01 T4F Result Comment: Bord bcknbg=627-313 mg/dL Higher Nmlv=745 mg/dL or greater Performed By: #### L 501.9520, L500.4050, L506.0400, L500.4100, L100.0100 #### [facility] [address] [place], [address] Cholesterol in VLDL [Mass/Vol] 14 mg/dL Normal 5-40 [facility] Comment on above: Order Comment: Order Date: 09/11/24 Order Info: 0786-1 - CMP Order Info: [id number] - LIPID Order Info: [id number] - TSH Order Info: 7 - T4F Performed By: #### L 501.9520, L500.4050, L506.0400, L500.4100, L100.0100 #### [facility] [address] [place], [address] Triglyceride [Mass/Vol] 69 mg/dL Normal [facility] Comment on above: Order Comment: Order Date: 09/11/24 Order Info: 0786-1 - CMP Order Info: [id number] - LIPID Order Info: 3 - TSH Order Info: 7 - T4F Result Comment: The drugs N-Acetylcysteine and Metamizole may falsely depress this assay. Normal range: <150 mg/dL Borderline High: 150-199 mg/dL High: 200-499 mg/dL Very High: >500 mg/dL Performed By: #### L 501.9520, L500.4050, L506.0400, L500.4100, L100.0100 #### [facility] [address] [place], [address] MCV (mean corpuscular volume ) determinationOrdered By: Moiz Mueller on 01-20-2025 MCV (RBC) [Entitic vol] 93.1 fL 80-94 [facility] Mean corpuscular hemoglobin (MCH) determinationOrdered By: Moiz Mueller on 01-20-2025 MCH (RBC) [Entitic mass] 32.5 pg High 27.0-32.0 [facility] Mean corpuscular hemoglobin concentration (MCHC) determinationOrdered By: Moiz Mueller on 01-20-2025 MCHC (RBC) [Mass/Vol] 34.9 g/dL 32-36 [facility] Mean platelet volume determi nationOrdered By: Moiz Mueller on 01-20-2025 Platelet mean volume (Bld) [Entitic vol] 10.6 fL 6.2-12.0 [facility] Microscopic analysis of urin e for red blood cells (RBC)Ordered By: Moiz Mueller on 01-20-2025 Microscopic analysis of urine for red blood cells (RBC) 0-5 SEEN /hpf 0-5 [facility] Monocyte percentageOrdered B y: Moiz Mueller on 01-20-2025 Monocytes/100 WBC (Bld) 10.6 % High 0-10 [facility] Mucus LM Ql (Urine sed)Order ed By: Moiz Mueller on 01-20-2025 Mucus Ql (Urine sed) 0 SEEN /hpf [facility] Neutrophil percentageOrdered By: Moiz Mueller on 01-20-2025 Neutrophils/100 WBC (Bld) 55.8 % 47-70 [facility] Nitrite Test strip Ql (U)Ord ered By: Moiz Mueller on 01-20-2025 Nitrite Ql (U) Negative Negative [facility] Nucleated red blood cell per centageOrdered By: Moiz Mueller on 01-20-2025 Nucleated RBC/100 WBC (Bld) [Ratio] 0 % 0-5 [facility] Platelet countOrdered By: Annabella Mueller on 01-20-2025 Platelets (Bld) [#/Vol] 240 10*3/uL 150-450 [facility] Potassium measurement (mass/ volume)Ordered By: Moiz Mueller on 01-20-2025 Potassium (Unsp spec) [Mass/Vol] 3.8 mmol/L 3.3-5.1 [facility] Protein Test strip Ql (U)Ord ered By: Moiz Mueller on 01-20-2025 Protein Ql (U) 30 mg/dl High Negative [facility] RBC Auto (Bld) [#/Vol]Ordere d By: Moiz Mueller on 01-20-2025 RBC (Bld) [#/Vol] 4.49 10*6/uL Low 4.6-6.2 [facility] Screening total cholesterol/ high density lipoprotein (HDL) cholesterol ratioOrdered By: Moiz Mueller on 01-20-2025 Cholesterol.total/Safia sterol in HDL [Mass ratio] 2.37 {ratio} [facility] Serum creatinine measurement (mass/volume)Ordered By: Moiz Mueller on 01-20-2025 Creatinine [Mass/Vol] 1.20 mg/dL 0.70-1.20 [facility] Serum globulin measurementOr dered By: Moiz Mueller on 01-20-2025 Globulin (S) [Mass/Vol] 3.1 g/dL 2.2-4.2 [facility] Serum glucose measurement (m ass/volume)Ordered By: Moiz Mueller on 01-20-2025 Glucose [Mass/Vol] 95 mg/dL 70-99 [facility] Serum or plasma alanine montesd e oca otransferase (ALT) measurementOrdered By: Moiz Mueller on 01-20-2025 ALT [Catalytic activity/Vol] 15 U/L <47 [facility] Serum or plasma albumin dulce urement (mass/volume)Ordered By: Moiz Mueller on 01-20-2025 Albumin [Mass/Vol] 4.1 g/dL 3.4-4.8 [facility] Serum or plasma albumin/glob ulin mass ratioOrdered By: Moiz Mueller on 01-20-2025 Albumin/Globulin [Mass ratio] 1.3 {ratio} 0.9-2.4 [facility] Serum or plasma alkaline anabell sphatase measurementOrdered By: Moiz Mueller on 01-20-2025 ALP [Catalytic activity/Vol] 89 U/L 40-129 [facility] Serum or plasma calcium dulce urement (mass/volume)Ordered By: Moiz Mueller on 01-20-2025 Calcium [Mass/Vol] 9.4 mg/dL 7.6-11.0 [facility] Serum or plasma cholesterol in HDL measurement (mass/volume)Ordered By: Moiz Mueller on 01-20-2025 Cholesterol in HDL [Mass/Vol] 56 mg/dL >40 [facility] Comment on above: National Cholesterol Education Program (NCEP) guidelines:<40 mg/dL: Low HDL-cholesterol (major risk factor for CHD)>= 60 mg/dL: High HDL-cholesterol (negative risk factor for CHD)HDL-cholesterol is affected by a number of factors, e.g. smoking, exercise, hormones, sex and age. Serum or plasma cholesterol measurement (mass/volume)Ordered By: Moiz Mueller on 01-20-2025 Cholesterol [Mass/Vol] 132 mg/dL <201 [facility] Comment on above: Cholesterol level, D esirable <200 mg/dLBorderline high cholesterol 200-239 mg/dLHigh cholesterol >=240 mg/dLRecommendations of the NCEP Adult Treatment Panel for the following risk-cutoff thresholds for the [place] population. Serum or plasma urea nitroge n measurement (mass/volume)Ordered By: Moiz Mueller on 01-20-2025 Urea nitrogen [Mass/Vol] 28 mg/dL High 4-19 [facility] [facility] Sodium levelOrdered By: Moiz Mueller on 01-20-2025 Sodium [Moles/Vol] 140 mmol/L 133-145 [facility] Squamous epithelial cells de tection in urine sediment by light microscopyOrdered By: Moiz Mueller on 01-20-2025 Epithelial cells.squamous LM Ql (Urine sed) 0-5 SEEN /hpf 0-5 [facility] T4 Free Directon 01-20-2025 T4 FREE DIRECT 1.50 ng/dL High 0.76-1.46 [facility] Comment on above: Order Comment: Order Date: 09/11/24Order Info: [id number] - CMPOrder Info: [id number] - LIPIDOrder Info: [id number] - TSHOrder Info: [id number] - T4F Performed By: #### L 501.9520, L500.4050, L506.0400, L500.4100, L100.0100 ####[facility] [address] [place], [address] T4 freeOrdered By: Moiz riveraer on 01-20-2025 Free T4 [Mass/Vol] 1.50 ng/dL High 0.76-1.46 [facility] TSH DL <= 0.005 mIU/L QnOrde red By: Moiz Mueller on 01-20-2025 TSH Qn 2.150 uIU/mL 0.300-4.200 [facility] Thyroid Stim Hormone (TSH)on 01-20-2025 TSH 2.150 uIU/mL Normal 0.300-4.200 [facility] Comment on above: Order Comment: Order Date: 09/11/24Order Info: [id number] - CMPOrder Info: [id number] - LIPIDOrder Info: [id number] - TSHOrder Info: [id number] - T4F Performed By: #### L 501.9520, L500.4050, L506.0400, L500.4100, L100.0100 ####[facility] [address] [place], [address] Total proteinOrdered By: Casey Mueller on 01-20-2025 Protein [Mass/Vol] 7.2 g/dL 5.9-8.4 [facility] Triglycerides measurementOrd ered By: Moiz Mueller on 01-20-2025 Triglyceride [Mass/Vol] 69 mg/dL <199 [facility] Comment on above: The drugs N-Acetylcy steine and Metamizole may falsely depress this assay. Normal range: <150 mg/dLBorderline High: 150-199 mg/dLHigh: 200-499 mg/dLVery High: >500 mg/dL Urinalysis, Completeon 01-20 EPI,SQUAMOUS 0-5 SEEN Normal 0-5 [facility] Comment on above: Order Comment: Urine , Random Performed By: #### L 506.1001, L400.0001 ####[facility] [address] [place], [address] RBC 0-5 SEEN Normal 0-5 [facility] Comment on above: Order Comment: Urine , Random Performed By: #### L 506.1001, L400.0001 ####[facility] [address] [place], [address] WBC 25-50 SEEN Normal 0-5 [facility] Comment on above: Order Comment: Urine , Random Performed By: #### L 506.1001, L400.0001 ####[facility] [address] [place], [address] BACTERIA 0 SEEN Normal None Seen [facility] Comment on above: Order Comment: Urine , Random Performed By: #### L 506.1001, L400.0001 ####[facility] [address] [place], [address] Mucus Ql (Urine sed) 0 SEEN Normal [facility] Comment on above: Order Comment: Urine , Random Performed By: #### L 506.1001, L400.0001 ####[facility] [address] [place], [address] Urine clarityOrdered By: Casey Mueller on 01-20-2025 Clarity (U) Sl. Cloudy Clear [facility] Urine color determinationOrd ered By: Moiz Mueller on 01-20-2025 Color (U) Yellow Yellow [facility] Urine glucose detectionOrder ed By: Moiz Mueller on 01-20-2025 Glucose Ql (U) Normal mg/dl Normal [facility] Urine leukocyte esterase det ection by dipstickOrdered By: Moiz Mueller on 01-20-2025 Leukocyte esterase Test strip Ql (U) 500 /ul High Negative [facility] Urine pHOrdered By: Moiz murphy on 01-20-2025 pH (U) 7.0 [pH] 5.0 - 8.0 [facility] Urine sediment bacteria coun t by microscopy (number/high power field)Ordered By: Moiz Mueller on 01-20-2025 Bacteria LM.HPF (Urine sed) [#/Area] 0 /[HPF] None Seen [facility] Urine specific gravity measu rementOrdered By: Moiz Mueller on 01-20-2025 Specific gravity (U) [Rel density] 1.010 1.002-1.030 [facility] Urine urobilinogen measureme ntOrdered By: Moiz Mueller on 01-20-2025 Urobilinogen Ql (U) Normal mg/dl Normal [facility] Vitamin D,25 Hydroxyon 01-20 Vitamin D 25-OH 44.0 ng/mL Normal 30-100 [facility] Comment on above: Order Comment: Order Date: 09/11/24Order Info: [id number] - CMPOrder Info: [id number] - LIPIDOrder Info: [id number] - TSHOrder Info: [id number] - T4F Result Comment: Rose min D Status Deficiency: <20 ng/mL (50nmol/L) Insufficiency: 20-30 ng/mL (50-75 nmol/L) Sufficiency: 30-100 ng/mL (75-250 nmol/L) Toxicity: >100 ng/mL (>250 nmol/L) Performed By: #### L 506.1001, L400.0001 ####[facility] [address] [place], [address] White blood cell (WBC) count Ordered By: Moiz Mueller on 01-20-2025 WBC (Bld) [#/Vol] 5.7 10*3/uL 4.4-11.0 [facility] White blood cell countOrdere d By: Moiz Mueller on 01-20-2025 White blood cell count 25-50 SEEN /hpf 0-5 [facility] CNOVon 11-14-2024 CNOV Office Visit (DMFPMN ) VILLAMESIS Sánchez ([id number]) 1945 M Date Time Provider Department 11/14/24 1:00 PM KYLAH DIMAS DMFPMN During your visit today, we recorded the following information about you: Kylah Dimas, S 11/14/2024 3:03 PM Signed [facility], Oral Surgery, AND Maxillofacial Prosthetics Date: [...] Retrodiskal ti (more content not included)... Normal [facility] Basic Metabolic Profile (BMP )on 09-10-2024 BUN/CRE 23.4 RATIO High 10-20 [facility] Comment on above: Order Comment: Order Date: 09/09/24 Order Info: [id number] - BMP Performed By: #### L 500.2500, L100.0100, L501.9985 #### [facility] [address] [place], [address] CA,Total 8.9 mg/dL Normal 8.5-10.1 [facility] Comment on above: Order Comment: Order Date: 09/09/24 Order Info: 0667- - BMP Performed By: #### L 500.2500, L100.0100, L501.9985 #### [facility] [address] [place], [address] Chloride [Moles/Vol] 101 mmol/L Normal 98-107 [facility] Comment on above: Order Comment: Order Date: 09/09/24 Order Info: 0667- - BMP Performed By: #### L 500.2500, L100.0100, L501.9985 #### [facility] [address] [place], [address] CO2 [Moles/Vol] 27.0 mmol/L Normal 21.0-32.0 [facility] Comment on above: Order Comment: Order Date: 09/09/24 Order Info: 0667-1 - BMP Performed By: #### L 500.2500, L100.0100, L501.9985 #### [facility] [address] [place], [address] Creatinine [Mass/Vol] 1.28 mg/dL Normal 0.70-1.30 [facility] Comment on above: Order Comment: Order Date: 09/09/24 Order Info: [id number] - BMP Result Comment: The validity of the calculated GFR GFRAA in patients over 70 years has not been determined. Clinical correlation is essential. Performed By: #### L 500.2500, L100.0100, L501.9985 #### [facility] [address] [place], [address] EST GFR - AA 70 mL/min Normal >60 [facility] Comment on above: Order Comment: Order Date: 09/09/24 Order Info: 0667-1 - BMP Result Comment: Afri can Wallis[place] GFR Calc Performed By: #### L 500.2500, L100.0100, L501.9985 #### [facility] [address] [place], [address] GAP 7 Normal 5-15 [facility] Comment on above: Order Comment: Order Date: 09/09/24 Order Info: 0667- - BMP Performed By: #### L 500.2500, L100.0100, L501.9985 #### [facility] [address] [place], [address] GFR/1.73 sq M.predicted among non-blacks MDRD (S/P/Bld) [Vol rate/Area] 58 mL/min/{1.73_m2} Low >60 [facility] Comment on above: Order Comment: Order Date: 09/09/24 Order Info: 0667- - BMP Result Comment: Non- GFR Calc Performed By: #### L 500.2500, L100.0100, L501.9985 #### [facility] [address] [place], [address] Glucose [Mass/Vol] 114 mg/dL High 74-106 [facility] Comment on above: Order Comment: Order Date: 09/09/24 Order Info: 0667-1 - BMP Result Comment: Fast ing Glucose result from 100 to 125 mg/dL suggests IMPAIRED HOMEOSTASIS per A.D.A. criteria. Performed By: #### L 500.2500, L100.0100, L501.9985 #### [facility] [address] [place], [address] Potassium [Moles/Vol] 3.7 mmol/L Normal 3.5-5.1 [facility] Comment on above: Order Comment: Order Date: 09/09/24 Order Info: 0667-1 - BMP Performed By: #### L 500.2500, L100.0100, L501.9985 #### [facility] [address] [place], [address] Sodium [Moles/Vol] 135 mmol/L Low 136-145 [facility] Comment on above: Order Comment: Order Date: 09/09/24 Order Info: 0667-1 - BMP Performed By: #### L 500.2500, L100.0100, L501.9985 #### [facility] [address] [place], [address] Urea nitrogen [Mass/Vol] 30 mg/dL High 7-18 [facility] Comment on above: Order Comment: Order Date: 09/09/24 Order Info: 0667-1 - BMP Performed By: #### L 500.2500, L100.0100, L501.9985 #### [facility] [address] [place], [address] CBC W/Diff, Automatedon 08-30 Absolute Lymph 1.60 X10 3/uL Normal 0.83-4.51 [facility] Comment on above: Order Comment: Order Date: 09/09/24 Order Info: 0184-1 - CBCD Performed By: #### L 500.2500, L100.0100, L501.9985 #### [facility] [address] [place], [address] Absolute Neut 5.1 X10 3/uL Normal 2.0-7.7 [facility] Comment on above: Order Comment: Order Date: 09/09/24 Order Info: 0184-1 - CBCD Performed By: #### L 500.2500, L100.0100, L501.9985 #### [facility] [address] [place], [address] Basophils/100 WBC (Bld) 0.1 % Normal 0-1 [facility] Comment on above: Order Comment: Order Date: 09/09/24 Order Info: 0184-1 - CBCD Performed By: #### L 500.2500, L100.0100, L501.9985 #### [facility] [address] [place], [address] Eosinophils/100 WBC (Bld) 4.1 % Normal 0-5 [facility] Comment on above: Order Comment: Order Date: 09/09/24 Order Info: 0184-1 - CBCD Performed By: #### L 500.2500, L100.0100, L501.9985 #### [facility] [address] [place], [address] Erythrocyte distribution width (RBC) [Ratio] 13.1 % Normal 11.6-14.6 [facility] Comment on above: Order Comment: Order Date: 09/09/24 Order Info: 0184-1 - CBCD Performed By: #### L 500.2500, L100.0100, L501.9985 #### [facility] [address] [place], [address] Hematocrit (Bld) [Volume fraction] 41.8 % Normal 40-54 [facility] Comment on above: Order Comment: Order Date: 09/09/24 Order Info: 0184-1 - CBCD Performed By: #### L 500.2500, L100.0100, L501.9985 #### [facility] [address] [place], [address] Hemoglobin (Bld) [Mass/Vol] 13.9 g/dL Normal 13.0-16.5 [facility] Comment on above: Order Comment: Order Date: 09/09/24 Order Info: 0184-1 - CBCD Performed By: #### L 500.2500, L100.0100, L501.9985 #### [facility] [address] [place], [address] IG% 0.400 Normal 0.0-0.9 [facility] Comment on above: Order Comment: Order Date: 09/09/24 Order Info: 018- - CBCD Result Comment: IG% - Immature Granulocytes (promyelocytes, myelocytes and metamyelocytes) > 1% indicates that a LEFT SHIFT is Present. Performed By: #### L 500.2500, L100.0100, L501.9985 #### [facility] [address] [place], [address] Lymphocytes/100 WBC (Bld) 19.8 % Normal 19-41 [facility] Comment on above: Order Comment: Order Date: 09/09/24 Order Info: [id number] - CBCD Performed By: #### L 500.2500, L100.0100, L501.9985 #### [facility] [address] [place], [address] MCH (RBC) [Entitic mass] 31.7 pg Normal 27.0-32.0 [facility] Comment on above: Order Comment: Order Date: 09/09/24 Order Info: [id number] - CBCD Performed By: #### L 500.2500, L100.0100, L501.9985 #### [facility] [address] [place], [address] MCHC (RBC) [Mass/Vol] 33.3 g/dL Normal 32-36 [facility] Comment on above: Order Comment: Order Date: 09/09/24 Order Info: 018- - CBCD Performed By: #### L 500.2500, L100.0100, L501.9985 #### [facility] [address] [place], [address] MCV (RBC) [Entitic vol] 95.2 fL High 80-94 [facility] Comment on above: Order Comment: Order Date: 09/09/24 Order Info: 018- - CBCD Performed By: #### L 500.2500, L100.0100, L501.9985 #### [facility] [address] [place], [address] Monocytes/100 WBC (Bld) 12.0 % High 0-10 [facility] Comment on above: Order Comment: Order Date: 09/09/24 Order Info: 0184-1 - CBCD Performed By: #### L 500.2500, L100.0100, L501.9985 #### [facility] [address] [place], [address] Neutrophils/100 WBC (Bld) 63.6 % Normal 47-70 [facility] Comment on above: Order Comment: Order Date: 09/09/24 Order Info: 0184-1 - CBCD Performed By: #### L 500.2500, L100.0100, L501.9985 #### [facility] [address] [place], [address] Nucleated RBC (Bld) [#/Vol] 0 10*3/uL Normal 0-5 [facility] Comment on above: Order Comment: Order Date: 09/09/24 Order Info: 0184-1 - CBCD Performed By: #### L 500.2500, L100.0100, L501.9985 #### [facility] [address] [place], [address] Platelet mean volume (Bld) [Entitic vol] 11.1 fL Normal 6.2-12.0 [facility] Comment on above: Order Comment: Order Date: 09/09/24 Order Info: 0184-1 - CBCD Performed By: #### L 500.2500, L100.0100, L501.9985 #### [facility] [address] [place], [address] Platelets (Bld) [#/Vol] 225 10*3/uL Normal 150-450 [facility] Comment on above: Order Comment: Order Date: 09/09/24 Order Info: 0184-1 - CBCD Performed By: #### L 500.2500, L100.0100, L501.9985 #### [facility] [address] [place], [address] RBC (Bld) [#/Vol] 4.39 10*6/uL Low 4.6-6.2 [facility] Comment on above: Order Comment: Order Date: 09/09/24 Order Info: 0184-1 - CBCD Performed By: #### L 500.2500, L100.0100, L501.9985 #### [facility] [address] [place], [address] RDW SD 46.3 fl High 35.1-43.9 [facility] Comment on above: Order Comment: Order Date: 09/09/24 Order Info: 0184-1 - CBCD Performed By: #### L 500.2500, L100.0100, L501.9985 #### [facility] [address] [place], [address] WBC (Bld) [#/Vol] 8.1 10*3/uL Normal 4.4-11.0 [facility] Comment on above: Order Comment: Order Date: 09/09/24 Order Info: 0184-1 - CBCD Performed By: #### L 500.2500, L100.0100, L501.9985 #### [facility] [address] [place], [address] Hemoglobin A1con 09-10-2024 HbA1c (Bld) [Mass fraction] 6.2 % High 3.8-5.6 [facility] Comment on above: Order Comment: Order Date: 09/09/24 Order Info: [id number] - A1C Result Comment: Norm al < 5.7 % Prediabetic 5.7 - 6.4 % Diabetic >or= 6.5 % Please note range changes. Performed By: #### L 500.2500, L100.0100, L501.9985 #### [facility] [address] [place], [address] Hemoglobin A1con 09-07-2024 HbA1c (Bld) [Mass fraction] 6.0 % High 3.8-5.6 [facility] Comment on above: Order Comment: Order Date: 05/16/24Order Info: 4548-4 - A1C Result Comment: Norm al < 5.7 % Prediabetic 5.7 - 6.4 % Diabetic >or= 6.5 % Please note range changes. Performed By: #### L 501.9985, L500.4050, L501.9520, L506.0400, L100.0100, L500.4100 ####[facility] [address] [place], [address] CBC W/Diff, Automatedon 02-0 7-2024 Absolute Lymph 1.01 X10 3/uL Normal 0.83-4.51 [facility] Comment on above: Order Comment: Order Date: 05/16/24Order Info: 0184-1 - CBCD Performed By: #### L 501.9985, L500.4050, L501.9520, L506.0400, L100.0100, L500.4100 ####[facility] [address] [place], [address] Absolute Neut 14.3 X10 3/uL High 2.0-7.7 [facility] Comment on above: Order Comment: Order Date: 05/16/24Order Info: 0184-1 - CBCD Performed By: #### L 501.9985, L500.4050, L501.9520, L506.0400, L100.0100, L500.4100 ####[facility] [address] [place], [address] Basophils/100 WBC (Bld) 0.1 % Normal 0-1 [facility] Comment on above: Order Comment: Order Date: 05/16/24Order Info: 0184-1 - CBCD Performed By: #### L 501.9985, L500.4050, L501.9520, L506.0400, L100.0100, L500.4100 ####[facility] [address] [place], [address] Eosinophils/100 WBC (Bld) 0.0 % Normal 0-5 [facility] Comment on above: Order Comment: Order Date: 05/16/24Order Info: 018-1 - CBCD Performed By: #### L 501.9985, L500.4050, L501.9520, L506.0400, L100.0100, L500.4100 ####[facility] [address] [place], [address] Erythrocyte distribution width (RBC) [Ratio] 13.4 % Normal 11.6-14.6 [facility] Comment on above: Order Comment: Order Date: 05/16/24Order Info: 018-1 - CBCD Performed By: #### L 501.9985, L500.4050, L501.9520, L506.0400, L100.0100, L500.4100 ####[facility] [address] [place], [place], [id number] Hematocrit (Bld) [Volume fraction] 40.6 % Normal 40-54 [facility] Comment on above: Order Comment: Order Date: 05/16/24Order Info: 018- - CBCD Performed By: #### L 501.9985, L500.4050, L501.9520, L506.0400, L100.0100, L500.4100 ####[facility] [address], [address] Hemoglobin (Bld) [Mass/Vol] 14.3 g/dL Normal 13.0-16.5 [facility] Comment on above: Order Comment: Order Date: 05/16/24Order Info: 018-1 - CBCD Performed By: #### L 501.9985, L500.4050, L501.9520, L506.0400, L100.0100, L500.4100 ####[facility] [address] [place], [address] IG% 0.500 Normal 0.0-0.9 [facility] Comment on above: Order Comment: Order Date: 05/16/24Order Info: 183- - CBCD Result Comment: IG% - Immature Granulocytes (promyelocytes, myelocytes and metamyelocytes) > 1% indicates that a LEFT SHIFT is Present. Performed By: #### L 501.9985, L500.4050, L501.9520, L506.0400, L100.0100, L500.4100 ####[facility] [address] [place], [address] Lymphocytes/100 WBC (Bld) 6.3 % Low 19-41 [facility] Comment on above: Order Comment: Order Date: 05/16/24Order Info: 01810-28 - CBCD Performed By: #### L 501.9985, L500.4050, L501.9520, L506.0400, L100.0100, L500.4100 ####[facility] [address] [place], [address] MCH (RBC) [Entitic mass] 32.6 pg High 27.0-32.0 [facility] Comment on above: Order Comment: Order Date: 05/16/24Order Info: 01810-28 - CBCD Performed By: #### L 501.9985, L500.4050, L501.9520, L506.0400, L100.0100, L500.4100 ####[facility] [address] [place], [address] MCHC (RBC) [Mass/Vol] 35.2 g/dL Normal 32-36 [facility] Comment on above: Order Comment: Order Date: 05/16/24Order Info: 018- - CBCD Performed By: #### L 501.9985, L500.4050, L501.9520, L506.0400, L100.0100, L500.4100 ####[facility] [address] [place], [address] MCV (RBC) [Entitic vol] 92.7 fL Normal 80-94 [facility] Comment on above: Order Comment: Order Date: 05/16/24Order Info: 018-1 - CBCD Performed By: #### L 501.9985, L500.4050, L501.9520, L506.0400, L100.0100, L500.4100 ####[facility] [address] [place], [address] Monocytes/100 WBC (Bld) 3.8 % Normal 0-10 [facility] Comment on above: Order Comment: Order Date: 05/16/24Order Info: 018- - CBCD Performed By: #### L 501.9985, L500.4050, L501.9520, L506.0400, L100.0100, L500.4100 ####[facility] [address] [place], [address] Neutrophils/100 WBC (Bld) 89.3 % High 47-70 [facility] Comment on above: Order Comment: Order Date: 05/16/24Order Info: 018- - CBCD Performed By: #### L 501.9985, L500.4050, L501.9520, L506.0400, L100.0100, L500.4100 ####[facility] [address] [place], [address] Nucleated RBC (Bld) [#/Vol] 0 10*3/uL Normal 0-5 [facility] Comment on above: Order Comment: Order Date: 05/16/24Order Info: 018-1 - CBCD Performed By: #### L 501.9985, L500.4050, L501.9520, L506.0400, L100.0100, L500.4100 ####[facility] [address] [place], [address] Platelet mean volume (Bld) [Entitic vol] 10.2 fL Normal 6.2-12.0 [facility] Comment on above: Order Comment: Order Date: 05/16/24Order Info: 018-1 - CBCD Performed By: #### L 501.9985, L500.4050, L501.9520, L506.0400, L100.0100, L500.4100 ####[facility] [address] [place], [address] Platelets (Bld) [#/Vol] 248 10*3/uL Normal 150-450 [facility] Comment on above: Order Comment: Order Date: 05/16/24Order Info: 018-1 - CBCD Performed By: #### L 501.9985, L500.4050, L501.9520, L506.0400, L100.0100, L500.4100 ####[facility] [address] [place], [address] RBC (Bld) [#/Vol] 4.38 10*6/uL Low 4.6-6.2 [facility] Comment on above: Order Comment: Order Date: 05/16/24Order Info: 018-1 - CBCD Performed By: #### L 501.9985, L500.4050, L501.9520, L506.0400, L100.0100, L500.4100 ####[facility] [address] [place], [address] RDW SD 45.5 fl High 35.1-43.9 [facility] Comment on above: Order Comment: Order Date: 05/16/24Order Info: 0184-1 - CBCD Performed By: #### L 501.9985, L500.4050, L501.9520, L506.0400, L100.0100, L500.4100 ####[facility] [address] [place], [address] WBC (Bld) [#/Vol] 16.0 10*3/uL High 4.4-11.0 [facility] Comment on above: Order Comment: Order Date: 05/16/24Order Info: 0184-1 - CBCD Performed By: #### L 501.9985, L500.4050, L501.9520, L506.0400, L100.0100, L500.4100 ####[facility] [address] [place], [address] Comprehensive Metabolic Prof ilon 09-05-2024 Albumin [Mass/Vol] 3.6 g/dL Normal 3.2-5.0 [facility] Comment on above: Order Comment: Order Date: 05/16/24Order Info: 0786-1 - CMPOrder Info: [id number] - LIPIDOrder Info: [id number] - TSHOrder Info: [id number] - T4F Performed By: #### L 501.9985, L500.4050, L501.9520, L506.0400, L100.0100, L500.4100 ####[facility] [address] [place], [address] Albumin/Globulin [Mass ratio] 0.9 {ratio} Normal 0.9-2.4 [facility] Comment on above: Order Comment: Order Date: 05/16/24Order Info: [id number] - CMPOrder Info: [id number] - LIPIDOrder Info: [id number] - TSHOrder Info: [id number] - T4F Performed By: #### L 501.9985, L500.4050, L501.9520, L506.0400, L100.0100, L500.4100 ####[facility] [address] [place], [address] ALK P 91 U/L Normal 45-117 [facility] Comment on above: Order Comment: Order Date: 05/16/24Order Info: [id number] - CMPOrder Info: [id number] - LIPIDOrder Info: [id number] - TSHOrder Info: [id number] - T4F Performed By: #### L 501.9985, L500.4050, L501.9520, L506.0400, L100.0100, L500.4100 ####[facility] [address] [place], [place], [address] ALT [Catalytic activity/Vol] 25 U/L Normal 16-61 [facility] Comment on above: Order Comment: Order Date: 05/16/24Order Info: [id number] - CMPOrder Info: [id number] - LIPIDOrder Info: [id number] - TSHOrder Info: [id number] - T4F Performed By: #### L 501.9985, L500.4050, L501.9520, L506.0400, L100.0100, L500.4100 ####[facility] [address] [place], [place], [address] AST [Catalytic activity/Vol] 20 U/L Normal 15-37 [facility] Comment on above: Order Comment: Order Date: 05/16/24Order Info: 86-1 - CMPOrder Info: [id number] - LIPIDOrder Info: 63 - TSHOrder Info: [id number] - T4F Performed By: #### L 501.9985, L500.4050, L501.9520, L506.0400, L100.0100, L500.4100 ####[facility] [address] [place], [place], [id number] Bilirubin [Mass/Vol] 0.50 mg/dL Normal 0.20-1.00 [facility] Comment on above: Order Comment: Order Date: 05/16/24Order Info: [id number] - CMPOrder Info: [id number] - LIPIDOrder Info: [id number] - TSHOrder Info: 3024-7 - T4F Result Comment: For patients on eltrombopag therapy, use of Dimension [place] TBIL is not recommended. Performed By: #### L 501.9985, L500.4050, L501.9520, L506.0400, L100.0100, L500.4100 ####[facility] [address] [place], [address] BUN/CRE 31.7 RATIO High 10-20 [facility] Comment on above: Order Comment: Order Date: 05/16/24Order Info: [id number] - CMPOrder Info: [id number] - LIPIDOrder Info: [id number] - TSHOrder Info: [id number] - T4F Performed By: #### L 501.9985, L500.4050, L501.9520, L506.0400, L100.0100, L500.4100 ####[facility] [address] [place], [address] CA,Total 9.3 mg/dL Normal 8.5-10.1 [facility] Comment on above: Order Comment: Order Date: 05/16/24Order Info: 785- - CMPOrder Info: [id number] - LIPIDOrder Info: 6-3 - TSHOrder Info: 3024-7 - T4F Performed By: #### L 501.9985, L500.4050, L501.9520, L506.0400, L100.0100, L500.4100 ####[facility] [address] [place], [address] Chloride [Moles/Vol] 103 mmol/L Normal 98-107 [facility] Comment on above: Order Comment: Order Date: 05/16/24Order Info: 07- - CMPOrder Info: [id number] - LIPIDOrder Info: [id number] - TSHOrder Info: 3024-7 - T4F Performed By: #### L 501.9985, L500.4050, L501.9520, L506.0400, L100.0100, L500.4100 ####[facility] [address] [place], [address] CO2 [Moles/Vol] 28.0 mmol/L Normal 21.0-32.0 [facility] Comment on above: Order Comment: Order Date: 05/16/24Order Info: [id number] - CMPOrder Info: [id number] - LIPIDOrder Info: 3 - TSHOrder Info: 7 - T4F Performed By: #### L 501.9985, L500.4050, L501.9520, L506.0400, L100.0100, L500.4100 ####[facility] [address] [place], [address] Creatinine [Mass/Vol] 1.42 mg/dL High 0.70-1.30 [facility] Comment on above: Order Comment: Order Date: 05/16/24Order Info: 785- - CMPOrder Info: [id number] - LIPIDOrder Info: [id number] - TSHOrder Info: 7 - T4F Result Comment: The validity of the calculated GFR GFRAA in patients over 70 years has not been determined. Clinical correlation is essential. Performed By: #### L 501.9985, L500.4050, L501.9520, L506.0400, L100.0100, L500.4100 ####[facility] [address] [place], [address] EST GFR - AA 62 mL/min Normal >60 [facility] Comment on above: Order Comment: Order Date: 05/16/24Order Info: 785-1 - CMPOrder Info: [id number] - LIPIDOrder Info: [id number] - TSHOrder Info: 7 - T4F Result Comment: Afri can [place] GFR Calc Performed By: #### L 501.9985, L500.4050, L501.9520, L506.0400, L100.0100, L500.4100 ####[facility] [address] [place], [address] GAP 7 Normal 5-15 [facility] Comment on above: Order Comment: Order Date: 05/16/24Order Info: 86-1 - CMPOrder Info: [id number] - LIPIDOrder Info: [id number] - TSHOrder Info: [id number] - T4F Performed By: #### L 501.9985, L500.4050, L501.9520, L506.0400, L100.0100, L500.4100 ####[facility] [address] [place], [address] GFR/1.73 sq M.predicted among non-blacks MDRD (S/P/Bld) [Vol rate/Area] 51 mL/min/{1.73_m2} Low >60 [facility] Comment on above: Order Comment: Order Date: 05/16/24Order Info: 785- - CMPOrder Info: [id number] - LIPIDOrder Info: [id number] - TSHOrder Info: 3024-01 - T4F Result Comment: Non- GFR Calc Performed By: #### L 501.9985, L500.4050, L501.9520, L506.0400, L100.0100, L500.4100 ####[facility] [address] [place], [address] Globulin (S) [Mass/Vol] 4.0 g/dL Normal 2.2-4.2 [facility] Comment on above: Order Comment: Order Date: 05/16/24Order Info: [id number] - CMPOrder Info: [id number] - LIPIDOrder Info: 3 - TSHOrder Info: 7 - T4F Performed By: #### L 501.9985, L500.4050, L501.9520, L506.0400, L100.0100, L500.4100 ####[facility] [address] [place], [address] Glucose [Mass/Vol] 181 mg/dL High 74-106 [facility] Comment on above: Order Comment: Order Date: 05/16/24Order Info: 785-07 - CMPOrder Info: [id number] - LIPIDOrder Info: 3 - TSHOrder Info: 7 - T4F Result Comment: Fast ing Glucose result greater than or equal to 126 mg/dL suggests DIABETES MELLITUS per A.D.A. criteria. Performed By: #### L 501.9985, L500.4050, L501.9520, L506.0400, L100.0100, L500.4100 ####[facility] [address] [place], [address] Potassium [Moles/Vol] 3.7 mmol/L Normal 3.5-5.1 [facility] Comment on above: Order Comment: Order Date: 05/16/24Order Info: 86-1 - CMPOrder Info: [id number] - LIPIDOrder Info: 3 - TSHOrder Info: 7 - T4F Performed By: #### L 501.9985, L500.4050, L501.9520, L506.0400, L100.0100, L500.4100 ####[facility] [address] [place], [address] Sodium [Moles/Vol] 138 mmol/L Normal 136-145 [facility] Comment on above: Order Comment: Order Date: 05/16/24Order Info: 785-07 - CMPOrder Info: [id number] - LIPIDOrder Info: 3 - TSHOrder Info: 7 - T4F Performed By: #### L 501.9985, L500.4050, L501.9520, L506.0400, L100.0100, L500.4100 ####[facility] [address] [place], [address] T PROT 7.6 g/dL Normal 6.4-8.2 [facility] Comment on above: Order Comment: Order Date: 05/16/24Order Info: 785-1 - CMPOrder Info: [id number] - LIPIDOrder Info: 3 - TSHOrder Info: [id number] - T4F Performed By: #### L 501.9985, L500.4050, L501.9520, L506.0400, L100.0100, L500.4100 ####[facility] [address] [place], [place], [address] Urea nitrogen [Mass/Vol] 45 mg/dL High 02-13 [facility] Comment on above: Order Comment: Order Date: 05/16/24Order Info: 86-1 - CMPOrder Info: [id number] - LIPIDOrder Info: [id number] - TSHOrder Info: 3027 - T4F Performed By: #### L 501.9985, L500.4050, L501.9520, L506.0400, L100.0100, L500.4100 ####[facility] [address] [place], [place], [address] Lipid Profileon 09-05-2024 Cholesterol [Mass/Vol] 138 mg/dL Normal 200 [facility] Comment on above: Order Comment: Order Date: 05/16/24Order Info: 785-07 - CMPOrder Info: [id number] - LIPIDOrder Info: 3 - TSHOrder Info: [id number] - T4F Result Comment: <200 mg/dL Desirable 200-240 mg/dL Borderline >240 mg/dL High Risk Performed By: #### L 501.9985, L500.4050, L501.9520, L506.0400, L100.0100, L500.4100 ####[facility] [address] [place], [place], [address] Cholesterol in HDL [Mass/Vol] 74 mg/dL Normal [facility] Comment on above: Order Comment: Order Date: 05/16/24Order Info: 785-1 - CMPOrder Info: [id number] - LIPIDOrder Info: 63 - TSHOrder Info: [id number] - T4F Result Comment: The drugs N-Acetylcysteine and Metamizole may falsely depress this assay. Reference Range HDL <40 mg/dL Low HDL Cholesterol HDL >or= 60 mg/dL High HDL Cholesterol Performed By: #### L 501.9985, L500.4050, L501.9520, L506.0400, L100.0100, L500.4100 ####[facility] [address] [place], [address] Cholesterol in LDL [Mass/Vol] 50 mg/dL Normal 0-130 [facility] Comment on above: Order Comment: Order Date: 05/16/24Order Info: 0786-1 - CMPOrder Info: [id number] - LIPIDOrder Info: [id number] - TSHOrder Info: 3024-7 - T4F Performed By: #### L 501.9985, L500.4050, L501.9520, L506.0400, L100.0100, L500.4100 ####[facility] [address] [place], [address] Cholesterol in VLDL [Mass/Vol] 14 mg/dL Normal 5-40 [facility] Comment on above: Order Comment: Order Date: 05/16/24Order Info: 785-1 - CMPOrder Info: [id number] - LIPIDOrder Info: 63 - TSHOrder Info: 3024-7 - T4F Performed By: #### L 501.9985, L500.4050, L501.9520, L506.0400, L100.0100, L500.4100 ####[facility] [address] [place], [address] Triglyceride [Mass/Vol] 69 mg/dL Normal [facility] Comment on above: Order Comment: Order Date: 05/16/24Order Info: 07- - CMPOrder Info: [id number] - LIPIDOrder Info: 6-3 - TSHOrder Info: 3024-7 - T4F Result Comment: The drugs N-Acetylcysteine and Metamizole may falsely depress this assay. Serum Triglycerides Reference Interval Normal <150 mg/dL Borderline high 150 - 199 mg/dL High 200 - 499 mg/dL Very High > or = 500 mg/dL Performed By: #### L 501.9985, L500.4050, L501.9520, L506.0400, L100.0100, L500.4100 ####[facility] [address] [place], [address] T4 Free Directon 09-05-2024 T4 FREE DIRECT 1.20 ng/dL Normal 0.76-1.46 [facility] Comment on above: Order Comment: Order Date: 05/16/24Order Info: 07-1 - CMPOrder Info: [id number] - LIPIDOrder Info: [id number] - TSHOrder Info: 3024-7 - T4F Performed By: #### L 501.9985, L500.4050, L501.9520, L506.0400, L100.0100, L500.4100 ####[facility] [address] [place], [address] Thyroid Stim Hormone (TSH)on 09-05-2024 TSH 0.553 uIU/mL Normal 0.358-3.740 [facility] Comment on above: Order Comment: Order Date: 05/16/24Order Info: 785-07 - CMPOrder Info: [id number] - LIPIDOrder Info: 6-3 - TSHOrder Info: 3024-7 - T4F Performed By: #### L 501.9985, L500.4050, L501.9520, L506.0400, L100.0100, L500.4100 ####[facility] [address] 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 Please call to confirm cancellation request, next availability for reschedule is possibly and not guaranteed NOVEMBER/2024 Please call [phone] Thank you for choosing [facility] for your healthcare. Sincerely, Your [...] Status:Closed by SUE NAVA on 06/25/[address] [facility] Cardiology Visit Reporton Cardiology Visit Report [facility] [address] [place], [place] [address] OFFICE VISIT Date of Service: 06/13/24 MR#: [id number] Acct: [id number] Name: MESSI VILLA Rep #: [id number] : 1945 Provider: Dr. Edd Berman MD Age/Sex: 79/M Location: [facility] Status: Signed HPI HPI History of Present [...] again. He has been seen by an coin machine collector and he is on antihistamine. 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 Normal [facility] CNOVon 06-11-2024 CNOV Office Visit (UROLBE ) MESSI VILLA ([id number]) 1945 M Date Time Provider Department 06/11/24 [...] which included preparing to see the patient, jczb-hs-rsnl patient care, completing clinical documentation, performing a [...] and oriented (more content not included)... Normal [facility] No Panel InformationOrdered By: Nyla Sapp on 06-11-2024 [facility] UA DIP, URINE (POC)on 2023 BILIRUBIN UA (POCT) Negative Negative [facility] CLARITY UA (POCT) Clear [facility] COLOR UA (POCT) Yellow [facility] GLUCOSE UA (POCT) Negative Negative mg/dL [facility] Hemoglobin Ql (U) Negative Negative [facility] Interpretation and review of laboratory results Abnormal [facility] KETONE UA (POCT) Negative Negative mg/dL [facility] LEUKOCYTES UA (POCT) Trace Abnormal Negative [facility] NITRITE UA (POCT) Negative Negative [facility] PH UA (POCT) 6.5 4.5 - 8.0 [facility] Protein Ql (U) Negative Negative mg/dL [facility] SPECIFIC GRAVITY UA (POCT) 1.015 1.005 - 1.030 [facility] UROBILINOGEN UA (POCT) 0.2 Rona l E.U./dL [facility] Location:[facility] [place], [address] [place] [address], [address] [place] [address] POINT OF CARE URINE SEDIMENT B/OOrdered By : Nyla Sapp on 06-11-2024 BACTERIA, UR 0 Negative [facility] Casts LM.HPF (Urine sed) [#/Area] 0 /[HPF] Negative [facility] Leukocyte morphology finding Nom (Bld) [facility] Nucleated RBC Manual cnt (Unsp spec) [#] 0 [facility] Urine sediment comments LM Jorge (Urine sed) [facility] URINE SEDIMENT B/Oon 024 Microscopic performe d by CLARA Pratt , scribed by Nyla Sapp LPN [facility] CBC W/Diff, Automatedon 10- Absolute Lymph 1.23 X10 3/uL Normal 0.83-4.51 [facility] Comment on above: Order Comment: Order Date: 05/13/24 Order Info: 0786-1 - CMP Performed By: #### L 500.4050 #### [facility] [address] [place], [address] Absolute Neut 2.9 X10 3/uL Normal 2.0-7.7 [facility] Comment on above: Order Comment: Order Date: 05/13/24 Order Info: 0786-1 - CMP Performed By: #### L 500.4050 #### [facility] [address] [place], [address] Basophils/100 WBC (Bld) 0.8 % Normal 0-1 [facility] Comment on above: Order Comment: Order Date: 05/13/24 Order Info: 0786-1 - CMP Performed By: #### L 500.4050 #### [facility] [address] [place], [address] Eosinophils/100 WBC (Bld) 4.8 % Normal 0-5 [facility] Comment on above: Order Comment: Order Date: 05/13/24 Order Info: 0786-1 - CMP Performed By: #### L 500.4050 #### [facility] [address] [place], [address] Erythrocyte distribution width (RBC) [Ratio] 12.9 % Normal 11.6-14.6 [facility] Comment on above: Order Comment: Order Date: 05/13/24 Order Info: 0786-1 - CMP Performed By: #### L 500.4050 #### [facility] [address] [place], [address] Hematocrit (Bld) [Volume fraction] 42.1 % Normal 40-54 [facility] Comment on above: Order Comment: Order Date: 05/13/24 Order Info: 0786-1 - CMP Performed By: #### L 500.4050 #### [facility] [address] [place], [address] Hemoglobin (Bld) [Mass/Vol] 14.2 g/dL Normal 13.0-16.5 [facility] Comment on above: Order Comment: Order Date: 05/13/24 Order Info: 0786-1 - CMP Performed By: #### L 500.4050 #### [facility] [address] [place], [address] IG% 0.200 Normal 0.0-0.9 [facility] Comment on above: Order Comment: Order Date: 05/13/24 Order Info: 07-1 - CMP Result Comment: IG% - Immature Granulocytes (promyelocytes, myelocytes and metamyelocytes) > 1% indicates that a LEFT SHIFT is Present. Performed By: #### L 500.4050 #### [facility] [address] [place], [address] Lymphocytes/100 WBC (Bld) 24.4 % Normal 19-41 [facility] Comment on above: Order Comment: Order Date: 05/13/24 Order Info: 0786-1 - CMP Performed By: #### L 500.4050 #### [facility] [address] [place], [address] MCH (RBC) [Entitic mass] 32.1 pg High 27.0-32.0 [facility] Comment on above: Order Comment: Order Date: 05/13/24 Order Info: 0786-1 - CMP Performed By: #### L 500.4050 #### [facility] [address] [place], [address] MCHC (RBC) [Mass/Vol] 33.7 g/dL Normal 32-36 [facility] Comment on above: Order Comment: Order Date: 05/13/24 Order Info: 0786-1 - CMP Performed By: #### L 500.4050 #### [facility] [address] [place], [address] MCV (RBC) [Entitic vol] 95.0 fL High 80-94 [facility] Comment on above: Order Comment: Order Date: 05/13/24 Order Info: 0786-1 - CMP Performed By: #### L 500.4050 #### [facility] [address] [place], [address] Monocytes/100 WBC (Bld) 11.9 % High 0-10 [facility] Comment on above: Order Comment: Order Date: 05/13/24 Order Info: 0786-1 - CMP Performed By: #### L 500.4050 #### [facility] [address] [place], [address] Neutrophils/100 WBC (Bld) 57.9 % Normal 47-70 [facility] Comment on above: Order Comment: Order Date: 05/13/24 Order Info: 0786-1 - CMP Performed By: #### L 500.4050 #### [facility] [address] [place], [address] Nucleated RBC (Bld) [#/Vol] 0 10*3/uL Normal 0-5 [facility] Comment on above: Order Comment: Order Date: 05/13/24 Order Info: 0786-1 - CMP Performed By: #### L 500.4050 #### [facility] [address] [place], [address] Platelet mean volume (Bld) [Entitic vol] 10.5 fL Normal 6.2-12.0 [facility] Comment on above: Order Comment: Order Date: 05/13/24 Order Info: 0786-1 - CMP Performed By: #### L 500.4050 #### [facility] [address] [place], [address] Platelets (Bld) [#/Vol] 234 10*3/uL Normal 150-450 [facility] Comment on above: Order Comment: Order Date: 05/13/24 Order Info: 0786-1 - CMP Performed By: #### L 500.4050 #### [facility] [address] [place], [address] RBC (Bld) [#/Vol] 4.43 10*6/uL Low 4.6-6.2 [facility] Comment on above: Order Comment: Order Date: 05/13/24 Order Info: 0786-1 - CMP Performed By: #### L 500.4050 #### [facility] [address] [place], [address] RDW SD 45.1 fl High 35.1-43.9 [facility] Comment on above: Order Comment: Order Date: 05/13/24 Order Info: 0786-1 - CMP Performed By: #### L 500.4050 #### [facility] [address] [place], [address] WBC (Bld) [#/Vol] 5.0 10*3/uL Normal 4.4-11.0 [facility] Comment on above: Order Comment: Order Date: 05/13/24 Order Info: 0786-1 - CMP Performed By: #### L 500.4050 #### [facility] [address] [place], [address] Comprehensive Metabolic Prof ilon 05-14-2024 Albumin [Mass/Vol] 3.6 g/dL Normal 3.2-5.0 [facility] Comment on above: Order Comment: Order Date: 05/13/24 Order Info: 0786-1 - CMP Performed By: #### L 500.4050 #### [facility] [address] [place], [address] Albumin/Globulin [Mass ratio] 0.9 {ratio} Normal 0.9-2.4 [facility] Comment on above: Order Comment: Order Date: 05/13/24 Order Info: 0786-1 - CMP Performed By: #### L 500.4050 #### [facility] [address] [place], [address] ALK P 101 U/L Normal 45-117 [facility] Comment on above: Order Comment: Order Date: 05/13/24 Order Info: 0786-1 - CMP Performed By: #### L 500.4050 #### [facility] [address] [place], [address] ALT [Catalytic activity/Vol] 23 U/L Normal 16-61 [facility] Comment on above: Order Comment: Order Date: 05/13/24 Order Info: 0786-1 - CMP Performed By: #### L 500.4050 #### [facility] [address] [place], [address] AST [Catalytic activity/Vol] 23 U/L Normal 15-37 [facility] Comment on above: Order Comment: Order Date: 05/13/24 Order Info: 0786-1 - CMP Performed By: #### L 500.4050 #### [facility] [address] [place], [address] Bilirubin [Mass/Vol] 0.60 mg/dL Normal 0.20-1.00 [facility] Comment on above: Order Comment: Order Date: 05/13/24 Order Info: 0786-1 - CMP Result Comment: For patients on eltrombopag therapy, use of Dimension [place] TBIL is not recommended. Performed By: #### L 500.4050 #### [facility] [address] [place], [address] BUN/CRE 20.3 RATIO High 10-20 [facility] Comment on above: Order Comment: Order Date: 05/13/24 Order Info: 0786-1 - CMP Performed By: #### L 500.4050 #### [facility] [address] [place], [address] CA,Total 9.1 mg/dL Normal 8.5-10.1 [facility] Comment on above: Order Comment: Order Date: 05/13/24 Order Info: 0786-1 - CMP Performed By: #### L 500.4050 #### [facility] [address] [place], [address] Chloride [Moles/Vol] 103 mmol/L Normal 98-107 [facility] Comment on above: Order Comment: Order Date: 05/13/24 Order Info: 0786-1 - CMP Performed By: #### L 500.4050 #### [facility] [address] [place], [address] CO2 [Moles/Vol] 32.0 mmol/L Normal 21.0-32.0 [facility] Comment on above: Order Comment: Order Date: 05/13/24 Order Info: 07-1 - CMP Performed By: #### L 500.4050 #### [facility] [address] [place], [address] Creatinine [Mass/Vol] 1.23 mg/dL Normal 0.70-1.30 [facility] Comment on above: Order Comment: Order Date: 05/13/24 Order Info: 07-1 - CMP Result Comment: The validity of the calculated GFR GFRAA in patients over 70 years has not been determined. Clinical correlation is essential. Performed By: #### L 500.4050 #### [facility] [address] [place], [address] EST GFR - AA 73 mL/min Normal >60 [facility] Comment on above: Order Comment: Order Date: 05/13/24 Order Info: 0786-1 - CMP Result Comment: Afri can [place] GFR Calc Performed By: #### L [id number] #### [facility] [address] [place], [address] GAP 5 Normal 5-15 [facility] Comment on above: Order Comment: Order Date: 05/13/24 Order Info: 0786-1 - CMP Performed By: #### L [id number] #### [facility] [address] [place], [place], [id number] GFR/1.73 sq M.predicted among non-blacks MDRD (S/P/Bld) [Vol rate/Area] 60 mL/min/{1.73_m2} Normal >60 [facility] Comment on above: Order Comment: Order Date: 05/13/24 Order Info: 0786-1 - CMP Result Comment: Non- GFR Calc Performed By: #### L [id number] #### [facility] [address] [place], [place], [id number] [phone] Globulin (S) [Mass/Vol] 3.8 g/dL Normal 2.2-4.2 [facility] Comment on above: Order Comment: Order Date: 05/13/24 Order Info: 0786-1 - CMP Performed By: #### L [id number] #### [facility] [address] [place], [address] Glucose [Mass/Vol] 103 mg/dL Normal 74-106 [facility] Comment on above: Order Comment: Order Date: 05/13/24 Order Info: 0786-1 - CMP Result Comment: Fast ing Glucose result from 100 to 125 mg/dL suggests IMPAIRED HOMEOSTASIS per A.D.A. criteria. Performed By: #### L [id number] #### [facility] [address] [place], [place], [id number] [phone] Potassium [Moles/Vol] 3.4 mmol/L Low 3.5-5.1 [facility] Comment on above: Order Comment: Order Date: 05/13/24 Order Info: 0786-1 - CMP Performed By: #### L [id number] #### [facility] [address] [place], [address] Sodium [Moles/Vol] 140 mmol/L Normal 136-145 [facility] Comment on above: Order Comment: Order Date: 05/13/24 Order Info: 0786-1 - CMP Performed By: #### L [id number] #### [facility] [address] [place], [place], [address] T PROT 7.4 g/dL Normal 6.4-8.2 [facility] Comment on above: Order Comment: Order Date: 05/13/24 Order Info: 0786-1 - CMP Performed By: #### L [id number] #### [facility] [address] [place], [place], [address] Urea nitrogen [Mass/Vol] 25 mg/dL High 7-18 [facility] Comment on above: Order Comment: Order Date: 05/13/24 Order Info: 0786-1 - CMP Performed By: #### L [id number] #### [facility] [address] [place], [place], [address] Hemoglobin A1con 05-14-2024 HbA1c (Bld) [Mass fraction] 5.8 % High 3.8-5.6 [facility] Comment on above: Order Comment: Order Date: 05/13/24 Order Info: 4548-4 - A1C Result Comment: Norm al < 5.7 % Prediabetic 5.7 - 6.4 % Diabetic >or= 6.5 % Please note range changes. Performed By: #### L [id number] #### [facility] [address] [place], [place], [address] Absolute lymphocyte countOrd ered By: Barrie Pike on 10-11-2023 Lymphocytes Auto (Unsp spec) [#/Vol] 1.05 10*3/uL 0.83-4.51 [facility] Automated lymphocyte count a s percentage of total leukocytesOrdered By: Barrie Pike on 10-11-2023 Lymphocytes/100 WBC Auto (Unsp spec) 14.3 % 19-41 [facility] Basophil percentageOrdered B y: Barrie Pike on 10-11-2023 Basophils/100 WBC (Bld) 0.3 % 0-1 [facility] Chloride [Moles/Vol] 100 mmol[facility]L 98-[facility] Eosin[facility]/100 WBC (Bld) 3.5 % 0-5 [facility] Glucose [Mass/Vol] 157 mg/dL 74-106 [facility] Comment on above: Fasting Glucose resu lt greater than or equal to 126 mg/dL suggests DIABETES MELLITUS per A.D.A. criteria. Hemoglobin (Bld) [Mass/Vol] 14.6 g/dL 13.0-16.5 [facility] Monocytes/100 WBC (Bld) 11.1 % 0-10 [facility] Neutrophils (Bld) [#/Vol] 5.2 10*3/uL 2.0-7.7 [facility] Neutrophils/100 WBC (Bld) 70.7 % 47-70 [facility] Potassium [Moles/Vol] 3.7 mmol/L 3.5-5.1 [facility] Sodium [Moles/Vol] 138 mmol/L 136-145 [facility] WBC (Bld) [#/Vol] 7.4 10*3/uL 4.4-11.0 [facility] Determination of erythrocyte mean corpuscular volume (MCV)Ordered By: Barrie Pike on 10-11-2023 MCV (RBC) [Entitic vol] 96.9 fL 80-94 [facility] Erythrocyte distribution wid th ratioOrdered By: Barrie Pike on 10-11-2023 Erythrocyte distribution width (RBC) [Ratio] 12.8 % 11.6-14.6 [facility] Erythrocyte distribution wid th standard deviationOrdered By: Barrie Pike on 10-11-2023 Erythrocyte distribution width (RBC) [Entitic vol] 46.5 fL 35.1-43.9 [facility] Hematocrit Auto (Bld) [Volum e fraction]Ordered By: Barrie Pike on 10-11-2023 Hematocrit (Bld) [Volume fraction] 43.2 % 40-54 [facility] Immature granulocytes/100 WB C Auto (Bld)Ordered By: Barrie Pike on 10-11-2023 Immature granulocytes/100 WBC (Bld) 0.100 % 0.0-0.9 [facility] Comment on above: IG% - Immature Granu locytes (promyelocytes, myelocytes and metamyelocytes) > 1% indicates that a LEFT SHIFT is Present. Laboratory - Chemistry and C hemistry - challengeOrdered By: Barrie Pike on 10-11-2023 CO2 [Moles/Vol] 32.0 mmol/L 21.0-32.0 [facility] Urea nitrogen/Creatinine [Mass ratio] 17.8 mg/mg 10-20 [facility] - Hematology and Cell countsOrdered By: Barrie Pike on 10-11-2023 MCH (RBC) [Entitic mass] 32.7 pg 27.0-32.0 [facility] MCHC (RBC) [Mass/Vol] 33.8 g/dL 32-36 [facility] Nucleated RBC/100 WBC (Bld) [Ratio] 0 % 0-5 [facility] Platelet mean volume (Bld) [Entitic vol] 10.4 fL 6.2-12.0 [facility] Platelets (Bld) [#/Vol] 204 10*3/uL 150-450 [facility] No Panel InformationOrdered By: Barrie Pike on 10-11-2023 Estimated Creatinine Clearance Calc 51.59 ml/min [facility] Estimated GFR (MDRD) Amer 77 mL/min >60 [facility] Comment on above: GFR Calc Estimated GFR (MDRD) Non-Af Amer 63 mL/min >60 [facility] Comment on above: Non- GFR Calc RBC Auto (Bld) [#/Vol]Ordere d By: Barrie Pike on 10-11-2023 RBC (Bld) [#/Vol] 4.46 10*6/uL 4.6-6.2 [facility] Serum or plasma calcium dulce urement (mass/volume)Ordered By: Barrie Pike on 10-11-2023 Calcium [Mass/Vol] 9.1 mg/dL 8.5-10.1 [facility] Serum or plasma creatinine m easurement (mass/volume)Ordered By: Barrie Pike on 10-11-2023 Creatinine [Mass/Vol] 1.18 mg/dL 0.70-1.30 [facility] Comment on above: The validity of the calculated GFR & GFRAA in patients over 70 years has not been determined. Clinical correlation is essential. Serum or plasma urea nitroge n measurement (mass/volume)Ordered By: Barrie Pike on 10-11-2023 Urea nitrogen [Mass/Vol] 21 mg/dL 7-18 [facility] Streptococcus pyogenes rRNA detection in throat by DNA probeOrdered By: Barrie Pike on 10-11-2023 S. pyogenes rRNA Probe Ql (Throat) [facility] Thin prep Papanicolaou smear with manual screeningOrdered By: Barrie Pike on 10-11-2023 Thin prep Papanicolaou smear with manual screening 6 5-15 [facility] Absolute lymphocyte countOrd ered By: Moiz Mueller on 05-08-2023 Lymphocytes Auto (Unsp spec) [#/Vol] 1.46 10*3/uL 0.83-4.51 [facility] Basophil percentageOrdered B y: Moiz Mueller on 05-08-2023 Basophils/100 WBC (Bld) 0.8 % 0-1 [facility] Bilirubin [Mass/Vol] 0.80 mg/dL 0.20-1.00 [facility] Comment on above: For patients on eltr ombopag therapy, use of Dimension [place] TBIL is not recommended. Chloride [Moles/Vol] 103 mmol/L 98-107 [facility] Cholesterol [Mass/Vol] 136 mg/dL <200 [facility] Comment on above: <200 mg/dL Desirable 200-240 mg/dL Borderline >240 mg/dL High Risk Eosinophils/100 WBC (Bld) 2.8 % 0-5 [facility] Glucose [Mass/Vol] 108 mg/dL 74-106 [facility] Comment on above: Fasting Glucose resu lt from 100 to 125 mg/dL suggests IMPAIRED HOMEOSTASIS per A.D.A. criteria. Neutrophils (Bld) [#/Vol] 4.1 10*3/uL 2.0-7.7 [facility] Neutrophils/100 WBC (Bld) 63.9 % 47-70 [facility] Potassium [Moles/Vol] 3.5 mmol/L 3.5-5.1 [facility] Protein [Mass/Vol] 7.6 g/dL 6.4-8.2 [facility] Sodium [Moles/Vol] 139 mmol/L 136-145 [facility] Triglyceride [Mass/Vol] 73 mg/dL <199 [facility] Comment on above: The drugs N-Acetylcy steine and Metamizole may falsely depress this assay.Serum Triglycerides Reference Interval Normal <150 mg/dL Borderline high 150 - 199 mg/dL High 200 - 499 mg/dL Very High > or = 500 mg/dL WBC (Bld) [#/Vol] 6.4 10*3/uL 4.4-11.0 [facility] Blood erythrocytes count (nu mber/volume)Ordered By: Moiz Mueller on 05-08-2023 RBC (Bld) [#/Vol] 4.69 10*6/uL 4.6-6.2 [facility] Blood hemoglobin measurement (mass/volume)Ordered By: Moiz Mueller on 05-08-2023 Hemoglobin (Bld) [Mass/Vol] 15.3 g/dL 13.0-16.5 [facility] Blood lymphocytes/100 leukoc ytesOrdered By: Moiz Mueller on 05-08-2023 Lymphocytes/100 WBC (Bld) 22.8 % 19-41 [facility] Blood monocytes/100 leukocyt esOrdered By: Moiz Mueller on 05-08-2023 Monocytes/100 WBC (Bld) 9.4 % 0-10 [facility] Blood platelet mean volumeOr dered By: Moiz Mueller on 05-08-2023 Platelet mean volume (Bld) [Entitic vol] 10.3 fL 6.2-12.0 [facility] Determination of erythrocyte mean corpuscular volume (MCV)Ordered By: Moiz Mueller on 05-08-2023 MCV (RBC) [Entitic vol] 96.6 fL 80-94 [facility] Hematocrit Auto (Bld) [Volum e fraction]Ordered By: Moiz Mueller on 05-08-2023 Hematocrit (Bld) [Volume fraction] 45.3 % 40-54 [facility] - Chemistry and C hemistry - challengeOrdered By: Moiz Mueller on 05-08-2023 ALP [Catalytic activity/Vol] 91 U/L 45-117 [facility] ALT [Catalytic activity/Vol] 33 U/L 16-61 [facility] CO2 [Moles/Vol] 32.0 mmol/L 21.0-32.0 [facility] Globulin (S) [Mass/Vol] 3.9 g/dL 2.2-4.2 [facility] Urea nitrogen/Creatinine [Mass ratio] 19.7 mg/mg 10-20 [facility] - Hematology and Cell countsOrdered By: Moiz Mueller on 05-08-2023 Erythrocyte distribution width (RBC) [Entitic vol] 46.5 fL 35.1-43.9 [facility] Erythrocyte distribution width (RBC) [Ratio] 13.2 % 11.6-14.6 [facility] Immature granulocytes/100 WBC (Bld) 0.300 % 0.0-0.9 [facility] Comment on above: IG% - Immature Granu locytes (promyelocytes, myelocytes and metamyelocytes) > 1% indicates that a LEFT SHIFT is Present. MCH (RBC) [Entitic mass] 32.6 pg 27.0-32.0 [facility] Nucleated RBC/100 WBC (Bld) [Ratio] 0 % 0-5 [facility] MCHC Auto (RBC) [Mass/Vol]Or dered By: Moiz Mueller on 05-08-2023 MCHC (RBC) [Mass/Vol] 33.8 g/dL 32-36 [facility] No Panel InformationOrdered By: Moiz Mueller on 05-08-2023 Estimated GFR (MDRD) Amer 78 mL/min >60 [facility] Comment on above: GFR Calc Estimated GFR (MDRD) Non-Af Amer 64 mL/min >60 [facility] Comment on above: Non- GFR Calc Thyroid Stimulating Hormone (TSH) 2.51 uIU/mL 0.358-3.74 [facility] Vitamin D 25-Hydroxy 41.9 ng/mL [facility] Comment on above: Vitamin D 25(OH) Sta tus Range Deficiency <20 ng/mL (50nmol/L) Insufficiency 20 - 30 ng/mL (50 - 75 nmol/L) Sufficiency 30 - 100 ng/mL (75 - 250 nmol/L) Toxicity >100 ng/mL (>250 nmol/L) Platelets bldOrdered By: Casey Mueller on 05-08-2023 Platelets (Bld) [#/Vol] 247 10*3/uL 150-450 [facility] Serum or plasma albumin dulce urement (mass/volume)Ordered By: Moiz Mueller on 05-08-2023 Albumin [Mass/Vol] 3.7 g/dL 3.2-5.0 [facility] Serum or plasma albumin/glob ulin mass ratioOrdered By: Moiz Mueller on 05-08-2023 Albumin/Globulin [Mass ratio] 0.9 {ratio} 0.9-2.4 [facility] Serum or plasma calcium dulce urement (mass/volume)Ordered By: Moiz Mueller on 05-08-2023 Calcium [Mass/Vol] 9.1 mg/dL 8.5-10.1 [facility] Serum or plasma cholesterol in HDL measurement (mass/volume)Ordered By: Moiz Mueller on 05-08-2023 Cholesterol in HDL [Mass/Vol] 63 mg/dL >40 [facility] Comment on above: The drugs N-Acetylcy steine and Metamizole may falsely depress this assay. Reference Range HDL <40 mg/dL Low HDL Cholesterol HDL >or= 60 mg/dL High HDL Cholesterol Serum or plasma cholesterol in VLDL measurement (mass/volume)Ordered By: Moiz Mueller on 05-08-2023 Cholesterol in VLDL [Mass/Vol] 15 mg/dL 5-40 [facility] Serum or plasma creatinine m easurement (mass/volume)Ordered By: Moiz Mueller on 05-08-2023 Creatinine [Mass/Vol] 1.17 mg/dL 0.70-1.30 [facility] Comment on above: The validity of the calculated GFR & GFRAA in patients over 70 years has not been determined. Clinical correlation is essential. Serum or plasma low density lipoprotein (LDL) cholesterol measurement (mass/volume)Ordered By: Moiz Mueller on 05-08-2023 Cholesterol in LDL [Mass/Vol] 58 mg/dL 0-130 [facility] Serum or plasma urea nitroge n measurement (mass/volume)Ordered By: Moiz Mueller on 05-08-2023 Urea nitrogen [Mass/Vol] 23 mg/dL 7-18 [facility] Thin prep Papanicolaou smear with manual screeningOrdered By: Moiz Mueller on 05-08-2023 Thin prep Papanicolaou smear with manual screening 21 U/L 15-37 [facility] Thin prep Papanicolaou smear with manual screening 4 5-15 [facility] Whole blood hemoglobin A1c/t otal hemoglobin ratio (mass fraction)Ordered By: Moiz Mueller on 05-08-2023 HbA1c (Bld) [Mass fraction] 5.6 % 3.8-5.6 [facility] Comment on above: Normal < 5.7 % Predi abetic 5.7 - 6.4 % Diabetic >or= 6.5 % Please note range changes. No Panel InformationOrdered By: Moiz Mueller on 01-19-2023 Prostate Specific Antigen Screen 2.10 ng/mL 0.00-4.00 [facility] Comment on above: This test was perfor med using the TPSA assay method for [employer] chemistry system. Values obtained with differentassay methods cannot be used interchangably.When changing PSA assays in the course of monitoring apatient, additional sequential testing should be carriedout to confirm baseline values. Laboratory - Chemistry and C hemistry - challengeOrdered By: Dr. Mueller on 10-16-2022 Free T4 [Mass/Vol] 1.01 ng/dL 0.76-1.46 [facility] No Panel InformationOrdered By: Dr. Mueller on 10-16-2022 Thyroid Stimulating Hormone (TSH) 5.64 uIU/mL 0.358-3.74 [facility] Vitamin D 25-Hydroxy 50.5 ng/mL [facility] Comment on above: Vitamin D 25(OH) Sta tus Range Deficiency <20 ng/mL (50nmol/L) Insufficiency 20 - 30 ng/mL (50 - 75 nmol/L) Sufficiency 30 - 100 ng/mL (75 - 250 nmol/L) Toxicity >100 ng/mL (>250 nmol/L) Whole blood hemoglobin A1c/t otal hemoglobin ratio (mass fraction)Ordered By: Dr. Mueller on 10-16-2022 HbA1c (Bld) [Mass fraction] 5.7 % 3.8-5.6 [facility] Comment on above: Normal < 5.7 % Predi abetic 5.7 - 6.4 % Diabetic >or= 6.5 % Please note range changes. Absolute lymphocyte countOrd ered By: Dr. Mueller on 07-14-2022 Lymphocytes Auto (Unsp spec) [#/Vol] 1.70 10*3/uL 0.83-4.51 [facility] Basophil percentageOrdered B y: Dr. Mueller on 07-14-2022 Basophils/100 WBC (Bld) 0.8 % 0-1 [facility] Bilirubin [Mass/Vol] 0.60 mg/dL 0.20-1.00 [facility] Comment on above: For patients on eltr ombopag therapy, use of Dimension [place] TBIL is not recommended. Chloride [Moles/Vol] 106 mmol/L 98-107 [facility] Cholesterol [Mass/Vol] 125 mg/dL <200 [facility] Comment on above: <200 mg/dL Desirable 200-240 mg/dL Borderline >240 mg/dL High Risk Eosinophils/100 WBC (Bld) 3.9 % 0-5 [facility] Glucose [Mass/Vol] 103 mg/dL 74-106 [facility] Comment on above: Fasting Glucose resu lt from 100 to 125 mg/dL suggests IMPAIRED HOMEOSTASIS per A.D.A. criteria. Neutrophils (Bld) [#/Vol] 2.7 10*3/uL 2.0-7.7 [facility] Neutrophils/100 WBC (Bld) 52.3 % 47-70 [facility] Potassium [Moles/Vol] 3.8 mmol/L 3.5-5.1 [facility] Protein [Mass/Vol] 7.4 g/dL 6.4-8.2 [facility] Sodium [Moles/Vol] 140 mmol/L 136-145 [facility] Triglyceride [Mass/Vol] 65 mg/dL <199 [facility] Comment on above: The drugs N-Acetylcy steine and Metamizole may falsely depress this assay.Serum Triglycerides Reference Interval Normal <150 mg/dL Borderline high 150 - 199 mg/dL High 200 - 499 mg/dL Very High > or = 500 mg/dL WBC (Bld) [#/Vol] 5.2 10*3/uL 4.4-11.0 [facility] Blood erythrocytes count (nu mber/volume)Ordered By: Dr. Mueller on 07-14-2022 RBC (Bld) [#/Vol] 4.46 10*6/uL 4.6-6.2 [facility] Blood hemoglobin measurement (mass/volume)Ordered By: Dr. Mueller on 07-14-2022 Hemoglobin (Bld) [Mass/Vol] 14.8 g/dL 13.0-16.5 [facility] Blood lymphocytes/100 leukoc ytesOrdered By: Dr. Mueller on 07-14-2022 Lymphocytes/100 WBC (Bld) 32.9 % 19-41 [facility] Blood monocytes/100 leukocyt esOrdered By: Dr. Mueller on 07-14-2022 Monocytes/100 WBC (Bld) 9.9 % 0-10 [facility] Blood platelet mean volumeOr dered By: Dr. Mueller on 07-14-2022 Platelet mean volume (Bld) [Entitic vol] 10.0 fL 6.2-12.0 [facility] Determination of erythrocyte mean corpuscular volume (MCV)Ordered By: Dr. Mueller on 07-14-2022 MCV (RBC) [Entitic vol] 94.4 fL 80-94 [facility] Hematocrit Auto (Bld) [Volum e fraction]Ordered By: Dr. Mueller on 07-14-2022 Hematocrit (Bld) [Volume fraction] 42.1 % 40-54 [facility] - Chemistry and C hemistry - challengeOrdered By: Dr. Mueller on 07-14-2022 ALP [Catalytic activity/Vol] 80 U/L 45-117 [facility] ALT [Catalytic activity/Vol] 24 U/L 16-61 [facility] CO2 [Moles/Vol] 31.0 mmol/L 21.0-32.0 [facility] Free T4 [Mass/Vol] 1.07 ng/dL 0.76-1.46 [facility] Globulin (S) [Mass/Vol] 3.9 g/dL 2.2-4.2 [facility] Urea nitrogen/Creatinine [Mass ratio] 20.9 mg/mg 10-20 [facility] - Hematology and Cell countsOrdered By: Dr. Mueller on 07-14-2022 Erythrocyte distribution width (RBC) [Entitic vol] 44.5 fL 35.1-43.9 [facility] Erythrocyte distribution width (RBC) [Ratio] 12.9 % 11.6-14.6 [facility] Immature granulocytes/100 WBC (Bld) 0.200 % 0.0-0.9 [facility] Comment on above: IG% - Immature Granu locytes (promyelocytes, myelocytes and metamyelocytes) > 1% indicates that a LEFT SHIFT is Present. MCH (RBC) [Entitic mass] 33.2 pg 27.0-32.0 [facility] Nucleated RBC/100 WBC (Bld) [Ratio] 0 % 0-5 [facility] MCHC Auto (RBC) [Mass/Vol]Or dered By: Dr. Mueller on 07-14-2022 MCHC (RBC) [Mass/Vol] 35.2 g/dL 32-36 [facility] No Panel InformationOrdered By: Dr. Mueller on 07-14-2022 Estimated GFR (MDRD) Amer 79 mL/min >60 [facility] Comment on above: GFR Calc Estimated GFR (MDRD) Non-Af Amer 66 mL/min >60 [facility] Comment on above: Non- GFR Calc Thyroid Stimulating Hormone (TSH) 3.77 uIU/mL 0.358-3.74 [facility] Vitamin D 25-Hydroxy 39.9 ng/mL [facility] Comment on above: Vitamin D 25(OH) Sta tus Range Deficiency <20 ng/mL (50nmol/L) Insufficiency 20 - 30 ng/mL (50 - 75 nmol/L) Sufficiency 30 - 100 ng/mL (75 - 250 nmol/L) Toxicity >100 ng/mL (>250 nmol/L) Platelets bldOrdered By: Dr. Mueller on 07-14-2022 Platelets (Bld) [#/Vol] 217 10*3/uL 150-450 [facility] Serum or plasma albumin dulce urement (mass/volume)Ordered By: Dr. Mueller on 07-14-2022 Albumin [Mass/Vol] 3.5 g/dL 3.2-5.0 [facility] Serum or plasma albumin/glob ulin mass ratioOrdered By: Dr. Mueller on 07-14-2022 Albumin/Globulin [Mass ratio] 0.9 {ratio} 0.9-2.4 [facility] Serum or plasma calcium dulce urement (mass/volume)Ordered By: Dr. Mueller on 07-14-2022 Calcium [Mass/Vol] 8.8 mg/dL 8.5-10.1 [facility] Serum or plasma cholesterol in HDL measurement (mass/volume)Ordered By: Dr. Mueller on 07-14-2022 Cholesterol in HDL [Mass/Vol] 56 mg/dL >40 [facility] Comment on above: The drugs N-Acetylcy steine and Metamizole may falsely depress this assay. Reference Range HDL <40 mg/dL Low HDL Cholesterol HDL >or= 60 mg/dL High HDL Cholesterol Serum or plasma cholesterol in VLDL measurement (mass/volume)Ordered By: Dr. Mueller on 07-14-2022 Cholesterol in VLDL [Mass/Vol] 13 mg/dL 5-40 [facility] Serum or plasma creatinine m easurement (mass/volume)Ordered By: Dr. Mueller on 07-14-2022 Creatinine [Mass/Vol] 1.15 mg/dL 0.70-1.30 [facility] Comment on above: The validity of the calculated GFR & GFRAA in patients over 70 years has not been determined. Clinical correlation is essential. Serum or plasma low density lipoprotein (LDL) cholesterol measurement (mass/volume)Ordered By: Dr. Mueller on 07-14-2022 Cholesterol in LDL [Mass/Vol] 56 mg/dL 0-130 [facility] Serum or plasma urea nitroge n measurement (mass/volume)Ordered By: Dr. Mueller on 07-14-2022 Urea nitrogen [Mass/Vol] 24 mg/dL 7-18 [facility] Thin prep Papanicolaou smear with manual screeningOrdered By: Dr. Mueller on 07-14-2022 Thin prep Papanicolaou smear with manual screening 23 U/L 15-37 [facility] Thin prep Papanicolaou smear with manual screening 3 5-15 [facility] Whole blood hemoglobin A1c/t otal hemoglobin ratio (mass fraction)Ordered By: Dr. Mueller on 07-14-2022 HbA1c (Bld) [Mass fraction] 5.9 % 3.8-5.6 [facility] Comment on above: Normal < 5.7 % Predi abetic 5.7 - 6.4 % Diabetic >or= 6.5 % Please note range changes. Basophil percentageon 2021 Chloride [Moles/Vol] 105 mmol/L 98-107 [facility] Work Phone: Glucose [Mass/Vol] 98 mg/dL 74-106 [facility] Work Phone: Potassium [Moles/Vol] 3.6 mmol/L 3.5-5.1 [facility] Work Phone: Sodium [Moles/Vol] 139 mmol/L 136-145 [facility] Work Phone: Laboratory - Chemistry and C hemistry - challengeon 03-29-2022 CO2 [Moles/Vol] 30.0 mmol/L 21.0-32.0 [facility] Work Phone: Urea nitrogen/Creatinine [Mass ratio] 18.3 mg/mg 10-20 [facility] Work Phone: No Panel Informationon 03-29 Estimated GFR (MDRD) Amer 76 mL/min >60 [facility] Work Phone: Comment on above: GFR Calc Estimated GFR (MDRD) Non-Af Amer 62 mL/min >60 [facility] Work Phone: Comment on above: Non- GFR Calc Serum or plasma calcium dulce urement (mass/volume)on 03-29-2022 Calcium [Mass/Vol] 9.2 mg/dL 8.5-10.1 [facility] Work Phone: Serum or plasma creatinine m easurement (mass/volume)on 03-29-2022 Creatinine [Mass/Vol] 1.20 mg/dL 0.70-1.30 [facility] Work Phone: Comment on above: The validity of the calculated GFR & GFRAA in patients over 70 years has not been determined. Clinical correlation is essential. Serum or plasma urea nitroge n measurement (mass/volume)on 03-29-2022 Urea nitrogen [Mass/Vol] 22 mg/dL 7-18 [facility] Work Phone: Thin prep Papanicolaou smear with manual screeningon 03-29-2022 Thin prep Papanicolaou smear with manual screening 4 5-15 [facility] Work Phone: Whole blood hemoglobin A1c/t otal hemoglobin ratio (mass fraction)on 03-29-2022 HbA1c (Bld) [Mass fraction] 5.8 % 3.8-5.6 [facility] Work Phone: Comment on above: Normal < 5.7 % Predi abetic 5.7 - 6.4 % Diabetic >or= 6.5 % Please note range changes. Absolute lymphocyte counton 03-14-2022 Lymphocytes Auto (Unsp spec) [#/Vol] 1.62 10*3/uL 0.83-4.51 [facility] Work Phone: Basophil percentageon 2021 Basophil percentage 5-10 SEEN /hpf 0-5 [facility] Work Phone: Basophils/100 WBC (Bld) 0.4 % 0-1 [facility] Work Phone: Bilirubin [Mass/Vol] 0.60 mg/dL 0.20-1.00 [facility] Work Phone: Comment on above: For patients on eltr ombopag therapy, use of Dimension [place] TBIL is not recommended. Chloride [Moles/Vol] 103 mmol/L 98-107 [facility] Work Phone: Cholesterol [Mass/Vol] 126 mg/dL <200 [facility] Work Phone: Comment on above: <200 mg/dL Desirable 200-240 mg/dL Borderline >240 mg/dL High Risk Eosinophils/100 WBC (Bld) 3.8 % 0-5 [facility] Work Phone: Glucose [Mass/Vol] 104 mg/dL 74-106 [facility] Work Phone: Comment on above: Fasting Glucose resu lt from 100 to 125 mg/dL suggests IMPAIRED HOMEOSTASIS per A.D.A. criteria. Neutrophils (Bld) [#/Vol] 2.8 10*3/uL 2.0-7.7 [facility] Work Phone: Neutrophils/100 WBC (Bld) 53.0 % 47-70 [facility] Work Phone: Potassium [Moles/Vol] 3.7 mmol/L 3.5-5.1 [facility] Work Phone: Protein [Mass/Vol] 7.6 g/dL 6.4-8.2 [facility] Work Phone: Sodium [Moles/Vol] 140 mmol/L 136-145 [facility] Work Phone: Triglyceride [Mass/Vol] 76 mg/dL <199 [facility] Work Phone: Comment on above: The drugs N-Acetylcy steine and Metamizole may falsely depress this assay.Serum Triglycerides Reference Interval Normal <150 mg/dL Borderline high 150 - 199 mg/dL High 200 - 499 mg/dL Very High > or = 500 mg/dL WBC (Bld) [#/Vol] 5.2 10*3/uL 4.4-11.0 [facility] Work Phone: Bilirubin Test strip Ql (U)o n 03-14-2022 Bilirubin Ql (U) Negative Negative [facility] Work Phone: Blood erythrocytes count (nu mber/volume)on 03-14-2022 RBC (Bld) [#/Vol] 4.65 10*6/uL 4.6-6.2 [facility] Work Phone: Blood hemoglobin measurement (mass/volume)on 03-14-2022 Hemoglobin (Bld) [Mass/Vol] 15.0 g/dL 13.0-16.5 [facility] Work Phone: Blood lymphocytes/100 leukoc yteson 03-14-2022 Lymphocytes/100 WBC (Bld) 31.1 % 19-41 [facility] Work Phone: Blood monocytes/100 leukocyt eson 03-14-2022 Monocytes/100 WBC (Bld) 11.5 % 0-10 [facility] Work Phone: Blood platelet mean volumeon 03-14-2022 Platelet mean volume (Bld) [Entitic vol] 10.6 fL 6.2-12.0 [facility] Work Phone: Determination of erythrocyte mean corpuscular volume (MCV)on 03-14-2022 MCV (RBC) [Entitic vol] 95.7 fL 80-94 [facility] Work Phone: Hematocrit Auto (Bld) [Volum e fraction]on 03-14-2022 Hematocrit (Bld) [Volume fraction] 44.5 % 40-54 [facility] Work Phone: Ketones Test strip Ql (U)on 03-14-2022 Ketones Ql (U) Negative Negative [facility] Work Phone: Laboratory - Chemistry and C hemistry - challengeon 03-14-2022 ALP [Catalytic activity/Vol] 81 U/L 45-117 [facility] Work Phone: ALT [Catalytic activity/Vol] 25 U/L 16-61 [facility] Work Phone: CO2 [Moles/Vol] 32.0 mmol/L 21.0-32.0 [facility] Work Phone: Free T4 [Mass/Vol] 1.06 ng/dL 0.76-1.[address] [facility] Work Phone: Globulin (S) [Mass/Vol] 4.0 g/dL 2.2-4.2 [facility] Work Phone: Urea nitrogen/Creatinine [Mass ratio] 18.9 mg/mg 10-20 [facility] Work Phone: Laboratory - Hematology and Cell countson 03-14-2022 Erythrocyte distribution width (RBC) [Entitic vol] 46.3 fL 35.1-43.9 [facility] Work Phone: Erythrocyte distribution width (RBC) [Ratio] 13.2 % 11.6-14.6 [facility] Work Phone: Immature granulocytes/100 WBC (Bld) 0.200 % 0.0-0.9 [facility] Work Phone: Comment on above: IG% - Immature Granu locytes (promyelocytes, myelocytes and metamyelocytes) > 1% indicates that a LEFT SHIFT is Present. MCH (RBC) [Entitic mass] 32.3 pg 27.0-32.0 [facility] Work Phone: Nucleated RBC/100 WBC (Bld) [Ratio] 0 % 0-5 [facility] Work Phone: MCHC Auto (RBC) [Mass/Vol]on 03-14-2022 MCHC (RBC) [Mass/Vol] 33.7 g/dL 32-36 [facility] Work Phone: Mucus LM Ql (Urine sed)on Mucus Ql (Urine sed) 0 SEEN /hpf [facility] Work Phone: Nitrite Test strip Ql (U)on 03-14-2022 Nitrite Ql (U) Negative Negative [facility] Work Phone: No Panel Informationon 03-14 Estimated GFR (MDRD) Amer 71 mL/min >60 [facility] Work Phone: Comment on above: GFR Calc Estimated GFR (MDRD) Non-Af Amer 59 mL/min >60 [facility] Work Phone: Comment on above: Non- GFR Calc Thyroid Stimulating Hormone (TSH) 3.40 uIU/mL 0.358-3.74 [facility] Work Phone: Vitamin D 25-Hydroxy 46.2 ng/mL [facility] Work Phone: Comment on above: Vitamin D 25(OH) Sta tus Range Deficiency <20 ng/mL (50nmol/L) Insufficiency 20 - 30 ng/mL (50 - 75 nmol/L) Sufficiency 30 - 100 ng/mL (75 - 250 nmol/L) Toxicity >100 ng/mL (>250 nmol/L) Platelets bldon 03-14-2022 Platelets (Bld) [#/Vol] 221 10*3/uL 150-450 [facility] Work Phone: Protein Test strip Ql (U)on 03-14-2022 Protein Ql (U) Negative Negative [facility] Work Phone: Serum or plasma albumin dulce urement (mass/volume)on 03-14-2022 Albumin [Mass/Vol] 3.6 g/dL 3.2-5.0 [facility] Work Phone: Serum or plasma albumin/glob ulin mass ratioon 03-14-2022 Albumin/Globulin [Mass ratio] 0.9 {ratio} 0.9-2.4 [facility] Work Phone: Serum or plasma calcium dulce urement (mass/volume)on 03-14-2022 Calcium [Mass/Vol] 9.2 mg/dL 8.5-10.1 [facility] Work Phone: Serum or plasma cholesterol in HDL measurement (mass/volume)on 03-14-2022 Cholesterol in HDL [Mass/Vol] 54 mg/dL >40 [facility] Work Phone: Comment on above: The drugs N-Acetylcy steine and Metamizole may falsely depress this assay. Reference Range HDL <40 mg/dL Low HDL Cholesterol HDL >or= 60 mg/dL High HDL Cholesterol Serum or plasma cholesterol in VLDL measurement (mass/volume)on 03-14-2022 Cholesterol in VLDL [Mass/Vol] 15 mg/dL 5-40 [facility] Work Phone: Serum or plasma creatinine m easurement (mass/volume)on 03-14-2022 Creatinine [Mass/Vol] 1.27 mg/dL 0.70-1.30 [facility] Work Phone: Comment on above: The validity of the calculated GFR & GFRAA in patients over 70 years has not been determined. Clinical correlation is essential. Serum or plasma low density lipoprotein (LDL) cholesterol measurement (mass/volume)on 03-14-2022 Cholesterol in LDL [Mass/Vol] 57 mg/dL 0-130 [facility] Work Phone: Serum or plasma urea nitroge n measurement (mass/volume)on 03-14-2022 Urea nitrogen [Mass/Vol] 24 mg/dL 7-18 [facility] Work Phone: Squamous epithelial cells de tection in urine sediment by light microscopyon 03-14-2022 Epithelial cells.squamous LM Ql (Urine sed) 0 SEEN /hpf 0-5 [facility] Work Phone: Thin prep Papanicolaou smear with manual screeningon 03-14-2022 Thin prep Papanicolaou smear with manual screening 25 U/L 15-37 [facility] Work Phone: Thin prep Papanicolaou smear with manual screening 5 5-15 [facility] Work Phone: Urine blood detectionon 02-27 RBC Ql (U) Negative Negative [facility] Work Phone: RBC Ql (U) 0 SEEN /hpf 0-5 [facility] Work Phone: Urine clarityon 03-14-2022 Clarity (U) Clear Clear [facility] Work Phone: Urine color determinationon 03-14-2022 Color (U) Yellow Yellow [facility] Work Phone: Urine glucose detectionon Glucose Ql (U) Normal mg/dl Normal [facility] Work Phone: Urine leukocyte esterase det ection by dipstickon 03-14-2022 Leukocyte esterase Test strip Ql (U) 100 /ul Negative [facility] Work Phone: Urine pHon 03-14-2022 pH (U) 7.0 [pH] 5.0 - 8.0 [facility] Work Phone: Urine sediment bacteria coun t by microscopy (number/high power field)on 03-14-2022 Bacteria LM.HPF (Urine sed) [#/Area] 0 /[HPF] None Seen [facility] Work Phone: Urine specific gravity measu rementon 03-14-2022 Specific gravity (U) [Rel density] 1.010 1.002-1.030 [facility] Work Phone: Urobilinogen Auto test strip Ql (U)on 03-14-2022 Urobilinogen Ql (U) Normal mg/dl Normal [facility] Work Phone: Culture, urineon 11-23-2021 Bacteria identified Cx Nom (U) Enterococcus faecalis [facility] Work Phone: Culture, urineon 09-29-2021 Bacteria identified Cx Nom (U) Enterococcus faecalis [facility] Work Phone: Office Visiton 03-22-2017 Documentation of current medications (procedure) Done Invalid Interpretation Code [place] [facility] Work Phone: [phone] Fall risk assessment No [facility] [employer] Work Phone: [phone] Protein mass conc Done [facility] Work Phone: [phone] Lab Report: Lipid Profileon 02-20-2017 Cholesterol 127 mg/dL 200 [facility] [employer] Work Phone: [phone] HDL Cholesterol 64 mg/dL [facility] [employer] Work Phone: [phone] LDL Cholesterol 51 mg/dL 0-130 [place] [employer] Work Phone: [phone] Triglyceride 62 mg/dL [facility] [employer] Work Phone: [phone] very low density lipoproteins 12 mg/dL 5-40 [facility] [employer] Work Phone: [phone] Lab Report: Liver Profileon 02-20-2017 Alanine aminotransferase (ALT) 22 U/L 12-78 [place] [employer] Work Phone: [phone] Albumin 3.6 g/dL 3.4-5.0 [place] [employer] Work Phone: [phone] Alkaline phosphatase (ALP) 95 U/L Invalid Interpretation Code 45-117 [place] [employer] Work Phone: [phone] ALP enzyme act/vol (Bld) 95 U/L 45-117 [facility] Work Phone: [phone] Aspartate aminotransferase (AST) 24 U/L 15-37 [facility] Work Phone: [phone] Bilirubin (direct) 0.21 mg/dL 0.00-0.30 [facility] Work Phone: [phone] Bilirubin (total) 1.00 mg/dL 0.20-1.00 [facility] Work Phone: [phone] Globulin 4.1 g/dL High 2.3-3.5 [facility] Work Phone: [phone] Globulin mass conc (S) 4.1 g/dL High 2.3-3.5 [facility] Work Phone: [phone] Protein 7.7 g/dL 6.4-8.2 [place] [facility] Work Phone: [phone] Lab Report: PSA,Total - Maria Elena al Screenon 02-20-2017 prostate specific antigen (PSA) screening 9.30 ng/mL High 0.00-4.00 [facility] Work Phone: [phone] Protein mass conc 9.30 ng/mL High 0.00-4.00 [facility] Work Phone: [phone] Office Visiton 12-19-2016 Documentation of current medications (procedure) Done Invalid Interpretation Code [facility] Work Phone: [phone] Fall risk assessment No [facility] Work Phone: [phone] Protein mass conc Done [facility] Work Phone: [phone] Replaced Document: Will Sánchez CG Observationson 12-19-2016 BUN (urea nitrogen) Sinus Rhythm - occasional ectopic ventricular beat -Right bundle branch block with left axis -bifascicular block. ABNORMAL Invalid Interpretation Code [facility] Work Phone: [phone] EKG QRS axis -75 deg [facility] Work Phone: [phone] GE use only - for [employer] import when terms are not otherwise specified 454 ms Invalid Interpretation Code [facility] Work Phone: [phone] P Douglas 31 deg [facility] Work Phone: [phone] P wave axis, electrocardiogram 31 deg Invalid Interpretation Code [facility] Work Phone: [phone] MT Interval 214 ms [facility] Work Phone: [phone] MT interval, electrocardiogram 214 ms Invalid Interpretation Code [facility] Work Phone: [phone] Pulse (Heart Rate) 65 /min Invalid Interpretation Code [facility] Work Phone: [phone] QRS axis, electrocardiogram -75 deg Invalid Interpretation Code [place] [facility] Work Phone: [phone] QRS Duration 158 ms [facility] Work Phone: [phone] QRS duration, electrocardiogram 158 ms Invalid Interpretation Code [place] [facility] Work Phone: [phone] QT Interval new path ms [place] [facility] Work Phone: [phone] QT interval, electrocardiogram new path ms Invalid Interpretation Code [facility] Work Phone: [phone] QTc Tobias 454 ms [place] [facility] Work Phone: [phone] T Douglas 51 deg [facility] Work Phone: [phone] T wave axis, electrocardiogram 51 deg Invalid Interpretation Code [place] [facility] Work Phone: [phone] Urea nitrogen [Mass/Vol] Sinus Rhythm - occasional ectopic ventricular beat -Right bundle branch block with left axis -bifascicular block. 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 Left ventricular Ejection fraction 65 % [place] [facility] Work Phone: [phone] Lab Report: Basic Metabolic Profile (BMP)on 08-18-2016 Anion gap 8 mmol/L Invalid Interpretation Code 12-11 [facility] Work Phone: [phone] Anion gap [Moles/Vol] 8 mmol/L 12-11 [facility] Work Phone: [phone] BUN/Creatinine Ratio 19.7 RATIO 10-[address] [facility] Work Phone: [phone] Calcium 8.7 mg/dL 8.5-10.1 [facility] Work Phone: [phone] Chloride 101 mmol/L 98-107 [facility] Work Phone: [phone] CO2 30.0 mmol/L Invalid Interpretation Code 21.0-32.0 [place] [facility] Work Phone: [phone] CO2 (BldV) [Partial pressure] 30.0 mmol/L 21.0-32.0 [place] [facility] Work Phone: [phone] Creatinine 1.17 mg/dL 0.70-1.30 [place] [facility] Work Phone: [phone] eGFR (non-black) 65 mL/min/{1.73_m2} >60 [facility] Work Phone: [phone] eGFR (non-black) 79 mL/min/{1.73_m2} Invalid Interpretation Code >60 [place] [facility] Work Phone: [phone] EST GFR - AA 79 mL/min >60 [place] [facility] Work Phone: [phone] Glucose 84 mg/dL Invalid Interpretation Code 70-110 [facility] Work Phone: [phone] Glucose [Mass/Vol] 84 mg/dL 70-110 [facility] Work Phone: [phone] Potassium 3.5 mmol/L 3.5-5.1 [facility] Work Phone: [phone] Sodium 139 mmol/L 136-145 [place] [facility] Work Phone: [phone] Urea nitrogen 23 mg/dL High 7-18 [place] [facility] Work Phone: [phone] Lab Report: Lipid Profileon 08-18-2016 Cholesterol 132 mg/dL Invalid Interpretation Code 200 [facility] Work Phone: [phone] HDL Cholesterol 57 mg/dL Invalid Interpretation Code [facility] Work Phone: [phone] LDL Cholesterol 62 mg/dL Invalid Interpretation Code 0-130 [facility] Work Phone: [phone] Triglyceride 67 mg/dL Invalid Interpretation Code [facility] Work Phone: [phone] very low density lipoproteins 13 mg/dL Invalid Interpretation Code 5-40 [place] [facility] Work Phone: [phone] Lab Report: Liver Profileon 08-18-2016 Alanine aminotransferase (ALT) 33 U/L Invalid Interpretation Code 12-78 [place] [facility] Work Phone: [phone] Albumin 3.7 g/dL Invalid Interpretation Code 3.4-5.0 [facility] Work Phone: [phone] Alkaline phosphatase (ALP) 87 U/L Invalid Interpretation Code 45-117 [facility] Work Phone: [phone] ALP (Bld) [Catalytic activity/Vol] 87 U/L 45-117 [place] [facility] Work Phone: [phone] Aspartate aminotransferase (AST) 26 U/L Invalid Interpretation Code 15-37 [facility] Work Phone: [phone] Bilirubin (direct) 0.13 mg/dL Invalid Interpretation Code 0.00-0.30 [facility] Work Phone: [phone] Bilirubin (total) 0.50 mg/dL Invalid Interpretation Code 0.20-1.00 [facility] Work Phone: [phone] Globulin 3.7 g/dL High 2.3-3.5 [facility] Work Phone: [phone] Globulin (S) [Mass/Vol] 3.7 g/dL High 2.3-3.5 [facility] Work Phone: [phone] Protein 7.4 g/dL Invalid Interpretation Code 6.4-8.2 [employer] Work Phone: [phone]) Lab Report: Thyroid Stim Hor corrine (TSH)on 08-18-2016 Thyroid stimulating hormone (TSH) 9.01 u[iU]/mL High 0.358-3.74 [employer] Work Phone: [phone] Office Visiton 08-15-2016 Documentation of current medications (procedure) Done Invalid Interpretation Code [employer] Work Phone: [phone] Office Visiton 08-10-2015 Tobacco smoking status NHIS Never smoker [employer] Work Phone: [phone] Tobacco use CPHS Never smoker Invalid Interpretation Code [employer] Work Phone: [phone] Office Visiton 01-22-2015 cardiac risk group [facility] Work Phone: [phone] General cardiovascular disease 10Y risk [#] [place]Vinny'Agomanjit N/A [employer] Work Phone: [phone] Clinical Lists Update: Prelo stretcher helper 04-03-2014 Cholesterol to HDL Ratio 2.53 {ratio} [facility] Work Phone: [phone] LDL Cholesterol 72 mg/dL [place] [facility] Work Phone: [phone] LDL/HDL ratio, serum 1.21 [facility] Work Phone: [phone] Lab Report: CBCon 11-06-2013 Erythrocytes (RBC) 4.60 10*6/uL Normal 4.6-6.[address] [facility] Work Phone: [phone] Hematocrit (Bld) [Volume fraction] 42.3 % Normal 40-54 [place] [facility] Work Phone: [phone] Hematocrit (HCT) 42.3 % Normal 40-54 [place] [facility] Work Phone: [phone] Hemoglobin (HGB) 14.6 g/dL Normal 13.0-16.5 [place] [facility] Work Phone: [phone] MCH 31.7 pg Normal 27.0-32.0 [place] [facility] Work Phone: [phone] MCH (RBC) [Entitic mass] 31.7 pg Normal 27.0-32.0 [facility] Work Phone: [phone] MCHC 34.5 G/GL Normal 32-36 [place] [facility] Work Phone: [phone] MCHC (RBC) [Mass/Vol] 34.5 G/GL Normal 32-36 [facility] Work Phone: [phone] MCV 92.0 fL Normal 80-94 [facility] Work Phone: [phone] MCV (RBC) [Entitic vol] 92.0 fL Normal 80-94 [facility] Work Phone: [phone] Platelet mean volume (Bld) [Entitic vol] 10.3 fL Normal 6.2-12.0 [facility] Work Phone: [phone] Platelets 222 10*3/mm3 Normal 150-450 [place] [facility] Work Phone: [phone] Platelets (Bld) [#/Vol] 222 10*3/mm3 Normal 150-450 [facility] Work Phone: [phone] PMV by Radha 10.3 fL Normal 6.2-12.0 [facility] Work Phone: [phone] RBC (Bld) [#/Vol] 4.60 10*6/uL Normal 4.6-6.2 [facility] Work Phone: [phone] RDW-CA 45.1 fl High 35.1-43.9 [facility] Work Phone: [phone] WBC (Bld) [#/Vol] 5.2 10*3/uL Normal 4.4-11.0 [facility] Work Phone: [phone] WBC (Leukocytes) 5.2 10*3/uL Normal 4.4-11.0 [place] [facility] Work Phone: [phone] Lab Report: PTon 11-06-2013 INR Coag (PPP) [Relative time] 1.0 {INR} Normal [place] [facility] Work Phone: [phone] INR in blood by coagulation 1.0 {INR} Normal [facility] Work Phone: [phone] prothrombin time, actual/normal, ratio 12.7 SECONDS Normal 11.9-14.4 [facility] Work Phone: [phone] PTP 12.7 SECONDS Normal 11.9-14.4 [facility] Work Phone: [phone] Replaced Document: Will Sánchez CG Observationson 11-04-2013 BUN (urea nitrogen) Sinus Rhythm -Right bundle branch block with left axis -bifascicular block. ABNORMAL Invalid Interpretation Code [facility] Work Phone: [phone] P wave axis, electrocardiogram 33 deg Invalid Interpretation Code [facility] Work Phone: [phone] MT interval, electrocardiogram 204 ms Invalid Interpretation Code [facility] Work Phone: [phone] Pulse (Heart Rate) 71 /min Invalid Interpretation Code [facility] Work Phone: [phone] QRS axis, electrocardiogram -80 deg Invalid Interpretation Code [facility] Work Phone: [phone] QRS duration, electrocardiogram 162 ms Invalid Interpretation Code [facility] Work Phone: [phone] QT interval, electrocardiogram new path ms Invalid Interpretation Code [facility] Work Phone: [phone] T wave axis, electrocardiogram 58 deg Invalid Interpretation Code [facility] Work Phone: [phone] Replaced Document: Will Sánchez CG Observationson 10-02-2012 Pulse (Heart Rate) 443 ms Invalid Interpretation Code [place] [facility] Work Phone: [phone] Lab Reporton 01-16-2012 Globulin 2.8 g/dL Invalid Interpretation Code [facility] Work Phone: [phone] Globulin (S) [Mass/Vol] 2.8 g/dL [facility] Work Phone: [phone] Culture, urine Bacteria identified Cx Nom (U) Enterococcus faecalis [facility] Work Phone: Vital Signs Date Time Vital Sign Value Performing Clinician Facility 02-18-2025 11:16-0400 Body height 175 cm Stephanie Moya PA-C Work Phone: [facility] 02-18-2025 11:16-0400 Body height 175.26 cm Stephanie Moya PA-C Work Phone: [facility] 02-18-2025 11:16-0400 Body mass index (BMI) [Ratio] 26.68 kg/m2 Stephanie Moya PA-C Work Phone: [facility] 02-18-2025 11:16-0400 Body weight 82 kg Stephanie Moya PA-C Work Phone: [facility] 02-18-2025 11:16-0400 Body weight 81.65 kg Stephanie Moya PA-C Work Phone: [facility] 02-18-2025 11:16-0400 BP SITE #1 Stephanie Moya PA-C Work Phone: [facility] 02-18-2025 11:16-0400 Diastolic blood pressure 70 mm[Hg] Stephanie Moya PA-C Work Phone: [facility] 02-18-2025 11:16-0400 Heart rate 82 /min Stephanie Moya PA-C Work Phone: [facility] 02-18-2025 11:16-0400 HGHTCHNVIS Stephanie Moya PA-C Work Phone: [facility] 02-18-2025 11:16-0400 Systolic blood pressure 126 mm[Hg] Stephanie Moya PA-C Work Phone: [facility] 02-18-2025 11:16-0400 VITALSDONE Stephanie Moya PA-C Work Phone: [facility] 06-11-2024 12:07-0500 Diastolic blood pressure 73 mm[Hg] Annetta Krause MD Work Phone: [facility] 06-11-2024 12:07-0500 Heart rate 55 /min Annetta Krause MD Work Phone: [facility] 06-11-2024 12:07-0500 Systolic blood pressure 162 mm[Hg] Annetta Krause MD Work Phone: [facility] 10-11-2023 14:23-0400 Body temperature 97.6 [degF] Dr. Moiz Mueller Work Phone: [facility] 10-11-2023 14:23-0400 Diastolic blood pressure 86 mm[Hg] Dr. Moiz Mueller Work Phone: [facility] 10-11-2023 14:23-0400 Heart rate 64 /min Dr. Moiz Mueller Work Phone: [facility] 10-11-2023 14:23-0400 Respiratory rate 22 /min Dr. Moiz Mueller Work Phone: [facility] 10-11-2023 14:23-0400 SaO2% (BldA) [Mass fraction] 95 % Dr. Moiz Mueller Work Phone: [facility] 10-11-2023 14:23-0400 Systolic blood pressure 156 mm[Hg] Dr. Moiz Mueller Work Phone: [facility] 10-11-2023 12:00-0400 Inhaled oxygen flow rate 3 L/min Dr. Moiz Mueller Work Phone: [facility] 10-11-2023 09:21-0400 Body height 175.[address] Moiz Mueller Work Phone: [facility] 10-11-2023 09:21-0400 Body mass index (BMI) [Ratio] 26.5 kg/m2 Dr. Moiz Mueller Work Phone: [facility] 10-11-2023 09:21-0400 Body weight 81.[address] Moiz Mueller Work Phone: [facility] 08-31-2023 13:31-0500 Body height 172.[address] Moiz Mueller Work Phone: [facility] 08-31-2023 13:31-0500 Body mass index (BMI) [Ratio] 27.3 kg/m2 Dr. Moiz Mueller Work Phone: [facility] 08-31-2023 13:31-0500 Body weight 81.[address] Moiz Mueller Work Phone: [facility] 08-31-2023 13:31-0500 Diastolic blood pressure 60 mm[Hg] Dr. Moiz Mueller Work Phone: [facility] 08-31-2023 13:31-0500 Heart rate 52 /min Dr. Moiz Mueller Work Phone: [facility] 08-31-2023 13:31-0500 Respiratory rate 18 /min Dr. Moiz Mueller Work Phone: [facility] 08-31-2023 13:31-0500 SaO2% (BldA) [Mass fraction] 96 % Dr. Moiz Mueller Work Phone: [facility] 08-31-2023 13:31-0500 Systolic blood pressure 112 mm[Hg] Dr. Moiz Mueller Work Phone: [facility] 05-03-2023 14:25-0400 Body height 172.[address] Moiz Mueller Work Phone: [facility] 05-03-2023 14:25-0400 Body mass index (BMI) [Ratio] 27.5 kg/m2 Dr. Moiz Mueller Work Phone: [facility] 05-03-2023 14:25-0400 Body weight 82.[address] Moiz Mueller Work Phone: [facility] 05-03-2023 14:25-0400 Diastolic blood pressure 75 mm[Hg] Dr. Moiz Mueller Work Phone: [facility] 05-03-2023 14:25-0400 Heart rate 61 /min Dr. Moiz Mueller Work Phone: [facility] 05-03-2023 14:25-0400 Respiratory rate 18 /min Dr. Moiz Mueller Work Phone: [facility] 05-03-2023 14:25-0400 Systolic blood pressure 134 mm[Hg] Dr. Moiz Mueller Work Phone: [facility] 02-22-2023 10:55-0400 Body mass index (BMI) [Ratio] 26.8 kg/m2 Dr. Moiz Mueller Work Phone: [facility] 02-22-2023 10:55-0400 Body weight 79.[address] Moiz Mueller Work Phone: [facility] 02-22-2023 10:55-0400 Diastolic blood pressure 68 mm[Hg] Dr. Moiz Mueller Work Phone: [facility] 02-22-2023 10:55-0400 Heart rate 48 /min Dr. Moiz Mueller Work Phone: [facility] 02-22-2023 10:55-0400 Respiratory rate 16 /min Dr. Moiz Mueller Work Phone: [facility] 02-22-2023 10:55-0400 SaO2% (BldA) [Mass fraction] 95 % Dr. Moiz Mueller Work Phone: [facility] 02-22-2023 10:55-0400 Systolic blood pressure 137 mm[Hg] Dr. Moiz Mueller Work Phone: [facility] 08-25-2022 14:20-0500 Body height 172.[address] Moiz Mueller Work Phone: [facility] 08-25-2022 14:20-0500 Body mass index (BMI) [Ratio] 27.2 kg/m2 Dr. Moiz Mueller Work Phone: [facility] 08-25-2022 14:20-0500 Body weight 81.[address] Moiz Mueller Work Phone: [facility] 08-25-2022 14:20-0500 Diastolic blood pressure 68 mm[Hg] Dr. Moiz Mueller Work Phone: [facility] 08-25-2022 14:20-0500 Heart rate 55 /min Dr. Moiz Mueller Work Phone: [facility] 08-25-2022 14:20-0500 Respiratory rate 16 /min Dr. Moiz Mueller Work Phone: [facility] 08-25-2022 14:20-0500 Systolic blood pressure 127 mm[Hg] Dr. Moiz Mueller Work Phone: [facility] 02-09-2022 13:07-0400 Body height 172.[address] Moiz Mueller Work Phone: [facility] Work Phone: 08-09-2021 08:42-0500 Body mass index (BMI) [Ratio] 28.1 kg/m2 Dr. Moiz Mueller Work Phone: [facility] Work Phone: 08-09-2021 08:42-0500 Body weight 83.[address] Moiz Mueller Work Phone: [facility] Work Phone: 08-09-2021 08:42-0500 Diastolic blood pressure 72 mm[Hg] Dr. Moiz Mueller Work Phone: [facility] Work Phone: 08-09-2021 08:42-0500 Heart rate 53 /min Dr. Moiz Mueller Work Phone: [facility] Work Phone: 08-09-2021 08:42-0500 Respiratory rate 18 /min Dr. Moiz Mueller Work Phone: [facility] Work Phone: 08-09-2021 08:42-0500 SaO2% (BldA) [Mass fraction] 97 % Dr. Moiz Mueller Work Phone: [facility] Work Phone: 08-09-2021 08:42-0500 Systolic blood pressure 146 mm[Hg] Dr. Moiz Mueller Work Phone: [facility] Work Phone: 08-09-2021 07:42-0500 Body height 172.[address] Moiz Mueller Work Phone: [facility] Work Phone: 08-09-2021 07:42-0500 Body weight 83.[address] Moiz Mueller Work Phone: [facility] Work Phone: 08-09-2021 07:42-0500 Diastolic blood pressure 72 mm[Hg] Dr. Moiz Mueller Work Phone: [facility] Work Phone: 08-09-2021 07:42-0500 Heart rate 57 /min Dr. Moiz Mueller Work Phone: [facility] Work Phone: 08-09-2021 07:42-0500 Respiratory rate 18 /min Dr. Moiz Mueller Work Phone: [facility] Work Phone: 08-09-2021 07:42-0500 SaO2% (BldA) [Mass fraction] 99 % Dr. Moiz Mueller Work Phone: [facility] Work Phone: 08-09-2021 07:42-0500 Systolic blood pressure 154 mm[Hg] Dr. Moiz Mueller Work Phone: [facility] Work Phone: 12-28-2020 12:30-0400 Body mass index (BMI) [Ratio] 26.9 kg/m2 Dr. Moiz Mueller Work Phone: [facility] Work Phone: 03-22-2017 14:51-0400 BMI (Body Mass Index) 27.05 kg/m2 [facility] Work Phone: 03-22-2017 14:51-0400 BP Diastolic 60 mm[Hg] [facility] Work [...] Weight 83.1 kg Rosy Ibanez [facility] Work Phone: 12-19-2016 08:29-0400 [...] 08:22-0400 Height 175.26 cm [facility] Work Phone: 12-19-2016 08:22-0400 Pulse (Heart Rate) 65 /min [facility] Work Phone: 12-19-2016 08:22-0400 Respiratory Rate 20 /min [facility] Work Phone: 12-19-2016 08:22-0400 Weight 81.65 kg [facility] Work Phone: 08-15-2016 09:11-0500 BMI (Body Mass Index) 26.73 kg/m2 Unique Zamorano RN [facility] Work Phone: 08-15-2016 09:11-0500 BP Diastolic 60 mm[Hg] Unique Zamorano RN [facility] Work Phone: 08-15-2016 09:11-0500 BP Systolic 130 mm[Hg] Unique Zamorano RN [facility] Work Phone: 08-15-2016 09:11-0500 BSA (Body Surface Area) 1.98 m2 Unique Zamorano RN [facility] Work Phone: 08-15-2016 09:11-0500 Pulse (Heart Rate) 68 /min Unique Zamorano RN [facility] Work Phone: 08-15-2016 09:11-0500 Respiratory Rate 20 /min [facility] Work Phone: 08-15-2016 09:11-0500 Weight 82.1 kg Unique Zamorano RN [facility] Work Phone: 12-18-2013 15:19-0400 Height 175.26 cm Unique Zamorano RN [facility] Work Phone: 10-02-2012 11:38-0500 Heart rate 443 ms Alie Chauhan [facility] Work Phone: Encounters Encounter Date Encounter Type Care Provider Facility Start: 05-01-2025 ambulatory Moiz Mueller Facilit y:[facility] Start: 2025 End: [address] Moiz Mueller MD Work Phone: -Cardiovascular Services Start: 2025 End: [address] Sarahi Eli MD -Cardiovascular Services Work Phone: Start: 2025 End: 2025 ambulatory Moiz Mueller Facility:[facility] Start: 02-20-2025 End: 02-20-[address] Moiz Mueller MD Work Phone: -Laboratory Start: 02-20-2025 End: 02-20-[address] Moiz Mueller MD -Laboratory Work Phone: Start: 02-20-2025 End: 02-20-2025 ambulatory Moiz Mueller Facility:[facility] Start: 02-18-2025 In-person encounter Stephanie murrell PA-C Work Phone: [facility] Work Phone: Start: 02-18-2025 Visit out of hours Stephanie bojorquez PA-C Work Phone: [employer] Work Phone: Start: 01-20-2025 End: 01-20-[address] Moiz Mueller MD Work Phone: -Laboratory Start: 01-20-2025 End: 01-20-[address] Moiz Mueller MD -Laboratory Work Phone: Start: 01-20-2025 End: 01-20-2025 ambulatory Moiz Mueller Facility:[facility] Start: 11-14-2024 End: 11-14-2024 Patient encounter procedure Kylah Dimas DDS Work Phone: Dentistry Comment on above: Sleep related bruxis m (Primary Dx); TMJ crepitus; Attrition, teeth excessive; Myofascial pain Start: 11-14-2024 End: 11-14-2024 ambulatory KYLAH DIMAS Facility:[facility] Start: 09-10-2024 End: 09-10-2024 ambulatory [facility] Start: 09-05-2024 End: 09-05-2024 [facility] Start: 07-07-2024 ambulatory [facility] Start: 07-07-2024 End: 07-07-2024 ambulatory [facility] Facility:[facility] Start: 06-25-2024 End: 06-25-2024 Telephone encounter Kylah Dimas DDS Work Phone: Dentistry Comment on above: Appointment Start: 06-13-2024 End: 06-13-2024 ambulatory Edd Antonella Facility:[facility] Start: 06-11-2024 End: 06-11-2024 ambulatory ANNETTA KRAUSE Facility:[facility] Start: 06-11-2024 End: 06-11-2024 Patient encounter procedure Annetta Krause MD Work Phone: Urology Comment on above: Foreign body in blad nixon, sequela (Primary Dx); Screening for genitourinary condition; Postprocedural male urethral stricture; BPH with obstruction/lower urinary tract symptoms; Urinary frequency; Weak urinary stream; Intermittent urinary stream Start: 05-14-2024 End: 05-14-2024 ambulatory Moiz Mueller Facility:[facility] Start: 11-16-2023 End: 11-16-[address] Moiz Mueller Work Phone: [facility] Work Phone: Start: 11-16-2023 End: 11-16-[address] Moiz Mueller Work Phone: [facility]-Physical Therapy Work Phone: Start: 10-11-2023 End: 10-11-2023 Emergency department patient visit Dr. Moiz Mueller Work Phone: [facility]-Emergency Department Work Phone: Start: 10-09-2023 End: 10-09-[address] Moiz Mueller Work Phone: [facility] Work Phone: Start: 10-09-2023 End: 10-09-[address] Moiz Mueller Work Phone: [facility] Work Phone: Start: 10-04-[address] Moiz Mueller Work Phone: [facility]-Physical Therapy Work Phone: Start: 09-03-[address] Moiz Mueller Work Phone: [facility]-Physical Therapy Work Phone: Start: 08-31-2023 End: 08-31-[address] Moiz Mueller Work Phone: [facility] Work Phone: Start: 06-18-2023 Non-patient / Non-visit Dr. Annabella Mueller Work Phone: [facility] Work Phone: Start: 06-06-2023 Non-patient / Non-visit Dr. Annabella Mueller Work Phone: [facility] Start: 06-06-2023 End: 06-06-[address] Moiz Mueller Work Phone: [facility] Work Phone: Start: 06-06-2023 End: 06-06-[address] Moiz Mueller Work Phone: [facility]-Cardiovascula r Services Work Phone: Start: 05-14-2023 End: 05-14-[address] Moiz Mueller Work Phone: [facility] Work Phone: Start: 05-14-2023 End: 05-14-[address] Moiz Mueller Work Phone: [facility]-Pulmonary Services/Neurology Work Phone: Start: 05-08-2023 End: 05-08-[address] Moiz Mueller Work Phone: [facility] Work Phone: Start: 05-08-2023 End: 05-08-[address] Moiz Mueller Work Phone: [facility]-Laboratory Work Phone: Start: 05-03-2023 End: 05-03-[address] Moiz Mueller Work Phone: [facility] Work Phone: Start: 04-06-[address] Moiz Mueller Work Phone: [facility]-Physical Therapy Work Phone: Start: 02-22-2023 End: 02-22-[address] Moiz Mueller Work Phone: [facility] Work Phone: Start: 01-19-2023 End: 01-19-2023 ambulatory [facility] Work Phone: Start: 01-19-2023 End: 01-19-2023 [facility] Start: 10-16-2022 End: 10-16-[address] Moiz Mueller Work Phone: [facility] Work Phone: Start: 10-16-2022 End: 10-16-[address] [facility] Start: 08-25-2022 End: 08-25-[address] Moiz Mueller Work Phone: [facility] Start: 07-14-2022 End: 07-14-2022 ambulatory [facility] Work Phone: Start: 07-14-2022 End: 07-14-2022 [facility] Start: 03-29-2022 End: 03-29-[address] Moiz Mueller Work Phone: [facility] Work Phone: Start: 03-29-2022 End: 03-29-[address] [facility] Start: 03-16-2022 Non-patient / Non-visit Dr. Annabella Mueller Work Phone: [facility] Start: 03-16-2022 End: 03-16-[address] Moiz Mueller Work Phone: [facility]-Cardiovascula r Services Start: 03-14-2022 End: 03-14-[address] Moiz Mueller Work Phone: [facility] Work Phone: Start: 03-14-2022 End: 03-14-[address] Moiz Mueller Work Phone: [facility]-Laboratory Start: 02-09-2022 End: 02-09-[address] Moiz Mueller Work Phone: [facility] Start: 12-05-2021 End: 12-05-2021 Patient encounter procedure [facility]-MRI - [facility] Start: 11-23-2021 End: 11-23-[address] Moiz Mueller Work Phone: [facility]-Laboratory, Specimen Start: 11-09-2021 End: 11-09-[address] Moiz Mueller Work Phone: [facility]-Radiology, [facility] Start: 09-29-2021 End: 09-29-[address] Moiz Mueller Work Phone: [facility]-Laboratory, Specimen Start: 08-09-2021 End: 08-09-[address] Moiz Mueller Work Phone: [facility] Start: 12-28-[address] Rose Mueller Work Phone: [facility] Procedures Date Procedure Procedure Detail Performing [...] Mueller Work Phone: Start: 03-22-2017 End: 03-22-2017 POLICY ANALYST Edd Berman MD Start: 03-22-2017 End: 03-22-2017 [...] months Elizabeth Pisano Start: 02-15-2016 End: 02-15-2016 ROBYN Berman MD Start: 02-03-2016 End: 02-11-2016 *Hepatic [...] Edd Berman MD Start: 11-04-2013 End: 11-04-2013 POLICY ANALYST Edd Berman MD Start: 11-04-2013 End: 11-04-2013 [...] Edd Berman MD Start: 10-02-2012 End: 10-02-2012 POLICY ANALYST Edd Berman MD Start: 10-02-2012 End: 10-02-2012 [...] DTaP,Tdap,Td Vaccine (3 - Td or Tdap) [facility] Start: 06-17-2025 End: 06-17-2025 Patient encounter procedure 06/17/2025 2:30 PM EST Office Visit Urology [address] [place] [address] Trino Rodriguez PA-C [address] [place] [address] Follow Up Urology Comment on above: Follow Up Start: 02-18-2025 End: 02-18-2025 [facility] Work Phone: Start: 02-18-2025 End: 02-18-2025 [facility] Work Phone: Start: 11-14-2024 End: 11-14-2024 Patient encounter procedure 11/14/2024 1:00 PM EDT Office Visit Dentistry [address] [address] Kylah Dimas DDS [address] [place] [address] TMJ Consult no NG - pano 01/15/24 in [facility] Comment on above: TMJ Consult no NG - pano 01/15/24 in [facility] Start: 10-13-2024 Covid-19 Vaccine ( season) Covid-19 Vaccine () [facility] Start: 07-30-2024 Advance Directive Discussion Advance Directive Discussion [facility] Start: 10-11-2023 [facility] Start: 07-30-2023 Advance Directive Discussion Advance Directive Discussion [facility] Start: 11-03-2019 Diabetes Screening Diabetes Screenin g [facility] Start: 10-09-2018 Hepatitis B surface antibody level LDL Cholesterol [facility] Start: 09-20-2017 End: 09-20-2017 Appointment Appointment [facility] Work Phone: Start: 08-23-2017 End: 02-28-2017 *Hepatic Function Panel *Hepatic Function Panel [facility] Work Phone: Start: 08-23-2017 End: 02-28-2017 Lipid panel [AGGREGATE] *Lipid Profile CC PCP [facility] Work Phone: Start: 03-22-2017 End: 03-22-2017 Appointment Appointment [facility] Work Phone: Start: 03-22-2017 End: 03-22-2017 Appointment Appointment [facility] Work Phone: Start: 03-22-2017 End: 03-22-2017 POLICY ANALYST POLICY ANALYST [facility] Work Phone: Start: 03-22-2017 End: 03-22-2017 Follow Up Appt 6 months [facility] Work Phone: Start: 03-02-2017 End: 03-02-2017 Appointment Appointment [facility] Work Phone: Start: 02-20-2017 End: 02-20-2017 Appointment Appointment [facility] Work Phone: Start: 02-20-2017 End: 02-20-2017 Follow Up BP Check Follow Up BP Check [facility] Work Phone: Start: 02-15-2017 End: 02-20-2017 *Hepatic Function Panel *Hepatic Function Panel [facility] Work Phone: Start: 02-15-2017 End: 02-20-2017 Lipid panel [AGGREGATE] *Lipid Profile CC PCP [facility] Work Phone: Start: 12-19-2016 End: 12-19-2016 Appointment Appointment [facility] Work Phone: Start: 12-19-2016 End: 12-19-2016 POLICY ANALYST POLICY ANALYST [facility] Work Phone: Start: 12-19-2016 End: 12-27-2016 Electrocardiogram, complete EKG (In office) [facility] Work Phone: Start: 12-19-2016 End: 12-19-2016 Follow Up Appt 3 months Follow Up Appt 3 months [facility] Work Phone: Start: 12-19-2016 End: 12-19-2016 Nuclear stress test -exercise Nuclear stress test -exercise [facility] Work Phone: Start: 08-15-2016 End: 08-18-2016 *BMP *BMP [facility] Work Phone: Start: 08-15-2016 End: 08-18-2016 *Hepatic Function Panel *Hepatic Function Panel [facility] Work Phone: Start: 08-15-2016 End: 08-15-2016 POLICY ANALYST POLICY ANALYST [facility] Work Phone: Start: 08-15-2016 End: [...] 6 months Follow Up Appt 6 months [facility] Work Phone: Start: 02-15-2016 End: 02-15-2016 MMM MMM [facility] Work Phone: Start: 02-03-2016 End: 02-11-2016 *Hepatic Function Panel *Hepatic Function Panel [facility] Work Phone: Start: 02-03-2016 End: 02-11-2016 Lipid panel [AGGREGATE] *Lipid Profile CC PCP [facility] Work Phone: Start: 08-10-2015 End: 08-10-2015 POLICY ANALYST POLICY ANALYST [facility] Work Phone: Start: 08-10-2015 End: 08-10-2015 Follow Up Appt 6 months Follow Up Appt 6 months [facility] Work Phone: Start: 07-28-2015 End: 08-05-2015 *Hepatic Function Panel *Hepatic Function Panel [facility] Work Phone: Start: 07-28-2015 End: 08-05-2015 Lipid panel [AGGREGATE] *Lipid Profile CC PCP [facility] Work Phone: Start: 01-22-2015 End: 01-26-2015 *Hepatic Function Panel *Hepatic Function Panel [facility] Work Phone: Start: 01-22-2015 End: 01-22-2015 POLICY ANALYST POLICY ANALYST [facility] Work Phone: Start: 01-22-2015 End: 01-22-2015 Follow Up Appt 6 months Follow Up Appt 6 months [facility] Work Phone: Start: 01-22-2015 End: 01-26-2015 Lipid panel [AGGREGATE] *Lipid Profile CC PCP [facility] Work Phone: Start: 04-29-2014 End: 01-26-2015 *Hepatic Function Panel *Hepatic Function Panel [facility] Work Phone: Start: 04-29-2014 End: 01-26-2015 Lipid panel [AGGREGATE] *Lipid Profile CC PCP [facility] Work Phone: Start: 04-23-2014 End: 04-23-2014 POLICY ANALYST POLICY ANALYST [facility] Work Phone: Start: 04-23-2014 End: 04-23-2014 Follow Up Appt 6 months Follow Up Appt 6 months [facility] Work Phone: Start: 04-23-2014 End: 04-23-2014 Nuclear stress test -exercise Nuclear stress test -exercise [facility] Work Phone: Start: 12-18-2013 End: 04-06-2014 *Hepatic Function Panel *Hepatic Function Panel [facility] Work Phone: Start: 12-18-2013 End: 12-18-2013 POLICY ANALYST POLICY ANALYST [facility] Work Phone: Start: 12-18-2013 End: 12-18-2013 Follow Up Appt 4 months Follow Up Appt 4 months [facility] Work Phone: Start: 12-18-2013 End: 04-06-2014 Lipid panel [AGGREGATE] *Lipid Profile CC PCP [facility] Work Phone: Start: 11-20-2013 End: 04-06-2014 *BMP *BMP [facility] Work Phone: Start: 11-20-2013 End: 04-06-2014 DJN DJN [facility] Work Phone: Start: 11-10-2013 End: 11-10-2013 Nuclear stress test -exercise Nuclear stress test -exercise [facility] Work Phone: Start: 11-04-2013 End: 11-04-2013 *BMP *BMP [facility] Work Phone: Start: 11-04-2013 End: 11-06-2013 *Hepatic Function Panel *Hepatic Function Panel [facility] Work Phone: Start: 11-04-2013 End: 11-04-2013 CBC W Auto Differential panel - Blood *CBC without Diff [facility] Work Phone: Start: 11-04-2013 End: 11-07-2013 Chest x-ray X-Ray, Chest, PA & Lateral [facility] Work Phone: Start: 11-04-2013 End: 11-04-2013 Coagulation factor induced.INR assay in platelet poor plasma *PT/INR [facility] Work Phone: Start: 11-04-2013 End: 11-04-2013 POLICY ANALYST POLICY ANALYST [facility] Work Phone: Start: 11-04-2013 End: 11-04-2013 Electrocardiogram, complete EKG (In office) [facility] Work Phone: Start: 11-04-2013 End: 11-04-2013 Follow Up Appt 6 months Follow Up Appt 6 months [facility] Work Phone: Start: 11-04-2013 End: 11-04-2013 Left Heart Cath Left Heart Cath [facility] Work Phone: Start: 11-04-2013 End: 11-06-2013 Lipid panel [AGGREGATE] *Lipid Profile CC PCP [facility] Work Phone: Start: 12-28-2012 End: 02-07-2013 *Hepatic Function Panel *Hepatic Function Panel [facility] Work Phone: Start: 12-28-2012 End: 02-07-2013 Lipid panel [AGGREGATE] *Lipid Profile [facility] Work Phone: Start: 10-02-2012 End: 10-02-2012 POLICY ANALYST POLICY ANALYST [facility] Work Phone: Start: 10-02-2012 End: 10-02-2012 Electrocardiogram, complete EKG (In office) [facility] Work Phone: Start: 10-02-2012 End: 10-02-2012 Follow Up Appt Other Follow Up Appt Other [facility] Work Phone: Start: 08-01-2011 End: 01-17-2012 Electrocardiogram, complete EKG (In office) [facility] Work Phone: Start: 08-01-2011 End: 08-01-2011 Follow Up Appt 1 year Follow Up Appt 1 year [facility] Work Phone: Start: 1963 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 Disease Visit Annual PCP Team Chronic Disease Visit [facility] Start: 1963 Anxiety Screening Anxiety Screening [facility] Start: 1963 BP Controlled (<130/80) BP Controlle d (<130/80) [facility] Start: 1963 Depression Screening Depression Scre ening [facility] 24 Hour ECG [facility] Max OCCLUSAL GUARD H VANDANA APPLIANCE, FULL ARCH Max OCCLUSAL GUARD HARD APPLIANCE, FULL ARCH Dental Routine 1 Occurrences starting 11/14/2024 [facility] Work Phone: Comment on above: 1 Occurrences starti ng 11/14/2024 PANORAMIC RADIOGRAPH IC IMAGE PANORAMIC RADIOGRAPHIC IMAGE [facility] Routine 1 Occurrences starting 11/14/2024 [facility] Comment on above: 1 Occurrences starti ng 11/14/2024 Patient Education [facility] Work Phone: Patient referral [facility] Work Phone: RE-EVALUATION - LIMITED, PROBLEM FOCUSED (ESTABLISHED PATIENT; NOT POST-OPERATIVE VISIT) RE-EVALUATION - LIMITED, PROBLEM FOCUSED (ESTABLISHED PATIENT; NOT POST-OPERATIVE VISIT) Dental Routine 1 Occurrences starting 11/14/2024 [facility] Comment on above: 1 Occurrences starti ng 11/14/2024 SPLINT FOLLOW UP SPLINT FOLLOW U P Dental Routine 1 Occurrences starting 11/14/2024 [facility] Comment on above: 1 Occurrences starti ng 11/14/2024 UNSPECIFIED ADJUNCTI VE PROCEDURE, BY REPORT UNSPECIFIED ADJUNCTIVE PROCEDURE, BY REPORT Dental Routine 1 Occurrences starting 11/14/2024 [facility] Comment on above: 1 Occurrences starti ng 11/14/2024 Immunizations Immunization Date Immunization Notes Care Provider [facility] 10-13-2020 Covtonja (Moderna) Dr. Moiz murphy Work Phone: [facility] 09-15-2020 Donovan (Moderna) Dr. Moiz murphy Work Phone: [facility] 05-08-2017 influenza, high dose seasonal, preservative-free Kylah Dimas DDS Work Phone: [facility] 06-16-2016 influenza, high dose seasonal, preservative-free Kylah Judie DDS Work Phone: [facility] 04-11-2016 tetanus toxoid, redu frank diphtheria toxoid, and acellular pertussis vaccine, adsorbed Kylah Dimas DDS Work Phone: [facility] 04-11-2016 typhoid vaccine, parenteral, other than acetone-killed, dried Kylah Dimas DDS Work Phone: [facility] 10-25-2015 pneumococcal conjuga te vaccine, 13 valent Kylah Dimas DDS Work Phone: [facility] 06-18-2015 influenza, high dose seasonal, preservative-free Kylah Judie DDS Work Phone: [facility] 05-07-2014 influenza, seasonal, injectable Kylah Judie DDS Work Phone: [facility] Work Phone: 07-08-2012 influenza virus vacc ine, unspecified formulation Kylah Dimas DDS Work Phone: [facility] Work Phone: 02-14-2012 pneumococcal polysaccharide vaccine, 23 valent Kylah Dimas DDS Work Phone: [facility] Work Phone: 06-28-2011 influenza virus vacc ine, unspecified formulation Kylah Dimas DDS Work Phone: [facility] 02-18-2010 hepatitis A and hepatitis B vaccine Kylah Dimas DDS Work Phone: [facility] 08-06-2009 hepatitis A and hepatitis B vaccine Kylah Dimas DDS Work Phone: [facility] 07-07-2009 hepatitis A and hepatitis B vaccine Kylah Dimas DDS Work Phone: [facility] 07-07-2009 typhoid vaccine, unspecified formulation Kylah Dimas DDS Work Phone: [facility] 05-20-2009 influenza virus vacc ine, unspecified formulation Kylah Dimas DDS Work Phone: [facility] Work Phone: 05-10-2009 zoster vaccine, live Kylah hagan DDS Work Phone: [facility] 06-05-2008 influenza virus vacc ine, unspecified formulation Kylah Dimas DDS Work Phone: [facility] 11-28-2007 tetanus and diphther ia toxoids, adsorbed, preservative free, for adult use (2 Lf of tetanus toxoid and 2 Lf of diphtheria toxoid) Kylah Dimas DDS Work Phone: [facility] 07-04-2005 influenza virus vacc ine, unspecified formulation Kylah Dimas DDS Work Phone: [facility] Work Phone: 12-28-1986 Meningococcal, MCV4, unspecified conjugate formulation(groups A, C, Y and W-135) Kylah Dimas DDS Work Phone: [facility] 12-28-1986 tetanus and diphther ia toxoids, not adsorbed, for adult use Kylah Dimas DDS Work Phone: [facility] Work Phone: 12-28-1986 trivalent poliovirus vaccine, live, oral Kylah Dimas DDS Work Phone: [facility] 12-28-1986 typhoid vaccine, unspecified formulation Kylah Dimas DDS Work Phone: [facility] Payers Date Payer Category Payer Self-pay [id number] 2015 Private Health Insurance [facility] AARP SUPPLEMENT [id number] 2015-Present [phone] [address] [place] [address] Indemnity [id number] 2015 Unknown [id number] 2010 Medicare MEDICARE MEDICAR E A AND B [id number] 2010-Present [phone] [place] [address] Medicare [id number] 2010 Medicare [id number] Unknown [id number] Unknown [id number] Unknown [id number] Unknown [id number] Unknown [id number] Unknown [id number] Unknown [id number] Unknown [id number] Unknown [id number] Unknown [id number] Social History Date Type Detail Facility Start: 08-09-2021 End: 10-11-2023 Tobacco smoking status [facility] Unknown if ever smoked [facility] Start: 10-12-2020 None [facility] Start: 10-12-2020 Spouse/ Signif icant Other [facility] Start: 10-12-2020 Non-smoker [facility] Start: 1945 Sex Assigned At Male [facility] Start: 01-16-2011 End: 10-11-2023 Tobacco smoking status [facility] Never smoked tobacco [facility] Start: 01-16-2011 Tobacco use and exposure Smokeless tobacco non-user [facility] Start: 03-15-2022 Alcoholic beverage intake Current drinker of alcohol (finding) [facility] Start: 03-15-2022 End: 06-11-2024 History of Social function [facility] Start: 03-15-2022 End: 02-18-2025 Tobacco use panel [facility] Work Phone: National Score (1-10 0), lower number is lower risk 66 [facility] Start: 04-12-2020 Gender identity Identifies as male gender (finding) [facility] Start: 04-18-2020 Sexual orientation Heterosexual (fin ding) [facility] Medical Equipment Procedure Code Equipment [...] 03/07/2015 11:50 AM Ariadne Villegas MA No [facility] 03-07-2015 Are you blind, or do you have serious difficulty seeing, even when wearing glasses No 03/07/2015 11:50 AM Ariadne Villegas MA No [facility] 03-07-2015 Do you have serious difficulty walking or climbing stairs No 03/07/2015 11:50 AM Ariadne Villegas MA No [facility] 03-07-2015 Do you have difficul ty dressing or bathing No 03/07/2015 11:50 AM Ariadne Villegas MA [facility] 03-07-2015 Because of a physica l, mental, or emotional condition, do you have difficulty doing errands alone such as visiting a physician's office or shopping No 03/07/2015 11:50 AM Ariadne Villegas MA [facility] Mental Status Date Assessment Result Facility 03-07-2015 Because of a physica l, mental, or emotional condition, do you have serious difficulty concentrating, remembering, or making decisions No 03/07/2015 11:50 AM Ariadne Villegas MA No [facility] Clinical Notes 12-05-2013 to 11-14-2024 Kylah Dimas, DDS - 11/14/2024 12:28 PM EDTTelephone Encounter - Sue Nava - 06/25/2024 1:24 PM ESTTelephone Encounter - Sue Nava - 06/25/2024 1:24 PM EST Note Date & Type Note Facility 11-14-2024 Note HNO ID: [id number] Author: KYLAH DIMAS DDS Service: ? Author Type: Dentist Type: Progress Notes Filed: 11/14/2024 15:03 Note Text: [facility], Oral Surgery, AND Maxillofacial Prosthetics Date: [...] restriction Right rotat (more content not included)... [facility] 11-14-2024 History of Presen t illness Narrative [facility], [facility] Surgery, & Maxillofacial Prosthetics Date: [...] I molar relationship with anterior contact in MD end to end except #11- moderate lower anterior wear on #23,24,25,26 Load testing was positive for left masseter pain pain-duplicated area of trp. Centric relation was verified today with the initial contact coincidental with MD. There are working and non-working posterior interferences [...] IA TREATMENT RECOMMENDATIONS: Discussed stabilization occlusal guard (guard driver) for nocturnal bruxism and dental attrition as [...] Kylah Dimas DDS documented in this encounter [facility] 06-25-2024 Telephone encount er Note June 25, 2024 Dear Messi Villa, Thank you for your request. Please call to confirm cancellation request, next availability for reschedule is possibly and not guaranteed NOVEMBER/2024 Please call [phone] Thank you for choosing [facility] for your healthcare. Sincerely, Your Care Team [facility] 06-25-2024 Miscellaneous Notes Formattin g of this note might be different from the original. June 25, 2024 Dear Messi Villa, Thank you for your request. Please call to confirm cancellation request, next availability for reschedule is possibly and not guaranteed NOVEMBER/2024 Please call [phone] Thank you for choosing [facility] for your healthcare. Sincerely, Your Care Team documented in this encounter [facility] 06-11-2024 Nurse Note NURSE POST [...] Factors Were Barriers To This Education Session: Jewish Factors: No barriers The Following Physical Limitations [...] Plan of Care Visit completed when applicable. Conchita Annita, OCCA [facility] 06-11-2024 Nurse Note NURSE POST [...] Factors Were Barriers To This Education Session: Jewish Factors: No barriers The Following Physical Limitations [...] FANNIE Lucas Rn documented in this encounter [facility] 06-11-2024 Nurse Note PRE CYSTO [...] of Sterile Drape. Anesthetic Given: 10 cc Jose De Jesus% Lidocaine FANNIE Lucas Rn [facility] 06-11-2024 Note HNO ID: [id number] Author: ANNETTA KRAUSE MD Service: ? Author [...] which included preparing to see the patient, [id number] patient care, completing clinical documentation, performing a medically appropriate examination, counseling and educating the patient/family/caregiver, ordering medications, tests, or procedures, independently interpreting results (not separately reported), communicating results to the patient/family/caregiver and care coordination (not separately reported). Annetta Krause MD [facility] 06-11-2024 History of Presen t illness Narrative [...] which included preparing to see the patient, [id number] patient care, completing clinical documentation, performing a medically appropriate examination, counseling and educating the patient/family/caregiver, ordering medications, tests, or procedures, independently interpreting results (not separately reported), communicating results to the patient/family/caregiver and care coordination (not separately reported). Annetta Krause MD documented in this encounter [facility] 11-16-2023 Discharge summary Note Date/Time November 16, 2023 10:52am [facility] Physical Therapy [facility] [address] [place] [address]. [address] [place] [address] / REHABILITATION SERVICES DISCHARGE SUMMARY MR#: [id number] Acct: [id number] Name: MESSI VILLA Rep #: [id number] : 1945 78 From: Zulema Clinton PT, Cert. MDT Referring Dr.: Dr. Misael Conti MD Status: REG RCR Insurance: MEDICARE PART A B [facility] Discharge Summary D/C summary: It has been [...] please feel free to call me at [phone]. Thank you for the referral of thispatient. Sincerely, Zulema Clinton, PT, Cert MDT Balance/Gait/Functional tests Balance/Special Test Scores Quick DASH Score: 5.0000 Improvement % Improvement: 95 <Electronically signed by Zulema Clinton PT, Cert. MDT> 11/16/23 1052 CC: Dr. Misael Conti MD; Dr. 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 (primary) hypertension chronic Hyperlipidemia chronic History of coronary artery stent placement December 05 14 resolved [facility] Work Phone: 1(863) 177-336805-09-2014 Evaluation note* Diagnosis Onset Date Resolution Status Dizziness acute Essential (primary) hypertension chronic Hyperlipidemia chronic History of coronary artery stent placement December 05 14 resolved [facility] Work Phone: 1(321) 485-162105-09-2014 Evaluation note* Diagnosis Onset Date Resolution Status Essential (primary) hypertension chronic Hyperlipidemia chronic History of coronary artery stent placement December 05 14 resolved [facility] Work Phone: 1(757) 978-222105-09-2014 Evaluation note* Diagnosis Onset Date Resolution Status Bradycardia acute Essential (primary) hypertension chronic Hyperlipidemia chronic History of coronary artery stent placement May 9th, 20 14 resolved Bradycardia acute Essential (primary) hypertension chronic Hyperlipidemia chronic History of coronary artery stent placement December 05 14 resolved [facility] Work Phone: 1(348) 904-869805-09-2014 Evaluation note* Diagnosis Onset Date Resolution Status Bradycardia acute Essential (primary) hypertension chronic Hyperlipidemia chronic History of coronary artery stent placement December 05 14 resolved [facility] Work Phone: Evaluation noteNo assessment information available [facility] Work Phone: Evaluation note* Diagnosis Routine [...] of urinary stream [facility] Diagnosis Routine medical exam- Primary Routine [...] and myositis, unspecified documented in this encounter [facility] Discharge instructions Additional Instructions Thank you for [...] care physician for further outpatient evaluation and management.[facility] Work Phone: Reason for referral (narrative)No reason for referral information availableWMet[facility] Work Phone: Reason for visit Narrative* Financial Clearance (Routine) - Closed Specialty Diagnoses / Procedures Referred By Contac t Referred To Contact Dentistry / DENTISTRY Diagnoses TMJ Consult no NG/ Will send pano Procedures TMJ CONSULT Self Kylah Dimas, DDS [address] [facility] [place] [address] Phone: tel: fax: Referral ID Status Reason Start Date Expiration Date V isits Requested Visits Authorized [id number] Closed Financial Clearance Required - Self Pay OON/Self Pay Override Dental - Patient Cleared required payment collected 10/29/2024 01/27/2025 1 1 [facility] Chief Complaint and Reason for Visit Chief Complaint 7 M FU (MOVED FROM [facility]) Reason for Visit Atherosclerotic hear t disease of [place] coronary artery without angina pectoris Essential (primary) [...] LAB ORDERS February 20, 2025 11:1 1am Chief Complaint Admit Date E ORDERS January 20, 2025 7:11 am INT LAB ORDERS February 20, 2025 11:1 1am OTHER SPECIFIED SOFT TISSUE DISORDERS Se ptember 2024 3:41pm Family History No Family History Records Found [...] No October 12, 2020 5:13am Power of Kiln Pusher Yes October 12 5:13am Advance Directive Response Recorded Date/ Time Living Will No October 12, 2020 4:13am Power of Kiln Pusher Yes October 12 4:13am Documents on File Type Date Recorded Patient Day Care Aide Expl anation Advance Directive(s) 02/28/2011 8:53 PM Documents on File Type Date Recorded Patient Day Care Aide Expl anation Advance Directive(s) 02/28/2011 8:53 PM [...] documented in an alternate section No Information AvailableGoals may be documented in an alternate section [...] Provider, Referr ing Provider Active Tila Caldwell INTERFACE ANALYST, INTERFACE ANALYST-C Attending Provider Active Team Status: Active Member Role Status Dates Dr. Moiz Mueller MD Primary Care Provider Active Carlos Alberto ELIZABETH PA-C Attending Provider, Referring Pr ovider Active Team Status: Inactive Member Role Status Dates Dr. Moiz Mueller MD Primary Care Provider Active Tila Caldwell INTERFACE ANALYST, INTERFACE ANALYST-C Attending Provider, Referring P marcelina Active Team Status: Active Member Role Status Dates Dr. Moiz Mueller MD Primary Care Provider Active Tila Caldwell INTERFACE ANALYST, INTERFACE ANALYST-C Attending Provider Active Team Status: Active [...] Pike DO Attending Provider, Scott hewitt Active Mobile Paramedical Examiner Relationship Specialty Start Date End Date Moiz Mueller MD [address] [facility] [address] [place] [address] PCP - General Family Medicine 12/13/17 Mobile Paramedical Examiner Relationship Specialty Start Date End Date Moiz Mueller MD [address] [facility] [address] [place] [address] PCP - General Family Medicine 12/13/17 Mobile Paramedical Examiner Relationship Specialty Start Date End Date Moiz Mueller MD [address] [facility] [address] [place] [address] PCP - General Family Medicine 12/13/17 Team [...] February 20, 2025 End: February 20, 2025 Team Status: Active Member Role/Relationship Status Dates Dr. Moiz Mueller MD Primary care physician Active Team Status: Inactive Member Role/Relationship Status Dates Dr. Moiz Mueller MD Primary care physician Active Start: January 20, 2025 End: January 20, 2025 Dr. Moiz Mueller MD Attending physician Active Start: January 20, 2025 End: January 20, 2025 Dr. Moiz Mueller MD Referring Provider Active Start: January 20, 2025 End: January 20, 2025 Team Status: Inactive Member Role/Relationship Status Dates Dr. Moiz Mueller MD Primary care physician Active Start: February 20, 2025 End: February 20, 2025 Dr. Moiz Mueller MD Attending physician Active Start: February 20, 2025 End: February 20, 2025 Dr. Moiz Mueller MD Referring Provider Active Start: February 20, 2025 End: February 20, 2025 Team Status: Inactive Member Role/Relationship Status Dates Dr. Moiz Mueller MD Primary care physician Active Start: 2025 End: 2025 Sarahi Eli MD Attending physician Active Star t: 2025 End: 2025 Sarahi Eli MD Referring Provider Active Start : 2025 End: 2025 Source Comments (unrecognize d section and content) In the event this informatio n is protected by the Federal Confidentiality of Alcohol and Drug Abuse Patient Records regulations: The Federal rules restrict any use of the information to criminally investigate or prosecute any alcohol or drug abuse patient.[facility] the event this information is protected by the Federal Confidentiality of Alcohol and Drug Abuse Patient Records regulations: The Federal rules restrict any use of the information to criminally investigate or prosecute any alcohol or drug abuse patient.[facility] the event this information is protected by the Federal Confidentiality of Alcohol and Drug Abuse Patient Records regulations: The Federal rules restrict any use of the information to criminally investigate or prosecute any alcohol or drug abuse patient.[facility] Reason for Visit (unrecogniz ed section and content) Reason Comments Appointment Reason Comments Cystoscopy-1 (unrecognized sect ion and content) No Status Records FoundNo Status Records FoundNo Status Records Found INFORMATION SOURCE (unrecogn ized section and content) DATE CREATED AUTHOR 12/03/2024 [facility] DATE CREATED AUTHOR AUTHOR'S ORGANIZ ATION 04/21/2025 [facility] DATE CREATED AUTHOR AUTHOR'S ORGANIZ ATION 05/02/2025 [facility] FOR RECORDS PERTAINING TO PATIENTS WHO [...] BE BASED ON THE PRIMARY CLINICAL RECORDS. [employer] provides no warranty or guarantee of the accuracy or completeness of information in this document.
--- OUTSIDE RECORDS SUMMARY | 2025-05-04 07:01 | XMS RPT_ITS | CCD ---
Author Organization [facility] CliniSyme Care Team Providers Care Building Services Coordinator Name Role Phone Rosy Ibanez Unavailable Unavailable Lona RN, Unique A Unavailable Unavailable Lona RN, Unique A Unavailable Unavailable Alie Chauhan Unavailable Alie Chauhan Unavailable Lona RN, Unique A Unavailable Unavailable Lona RN, Unique A Unavailable Unavailable Omar MCKINNON, Moiz Hyde Unavailable DeFinis, Royerumi Y Unavailable Unavailable DeFinis, Harumi Y Unavailable Unavailable Alie Chauhan Unavailable Dr. Moiz Mueller Primary Care Provider [phone] Dr. Moiz Mueller Referring Provider Javi MCKINNON NP-Cory Adorno Attending Provider Dr. Moiz Mueller Primary Care Provider Dr. Moiz Mueller Referring Provider Javi MCKINNON NP-Cory Adorno Attending Provider Dr. Trino Mclean Attending Provider Javi MCKINNON NP-C Tila Referring Provider Dr. Moiz Mueller Primary Care Provider [phone] Dr. Moiz Mueller Referring Provider Dr. Edd Berman Attending Provider Dr. Moiz Mueller Primary Care Provider [phone] [phone] Dr. Moiz Mueller Referring Provider 1([facility])[phone] ADI Caldwell NPC Tila Attending Provider Dr. Moiz Mueller Primary Care Provider [phone] Dr. Moiz Mueller Referring Provider Javi GAS COMPRESSOR TURBINE OPERATOR, GAS COMPRESSOR TURBINE OPERATOR-C Tila Attending Provider Dr. Moiz Mueller Primary Care Provider [phone] Dr. Edd Berman Attending Provider Javi GAS COMPRESSOR TURBINE OPERATOR, GAS COMPRESSOR TURBINE OPERATOR-C Tila Attending Provider Dr. Moiz Mueller Referring Provider Dr. Moiz Mueller Primary Care Provider [phone] Javi GAS COMPRESSOR TURBINE OPERATOR, GAS COMPRESSOR TURBINE OPERATOR-C Tila Attending Provider Dr. Moiz Mueller Referring Provider Dr. Moiz Mueller Primary Care Provider [phone] Javi GAS COMPRESSOR TURBINE OPERATOR, GAS COMPRESSOR TURBINE OPERATOR-C Tila Attending Provider Moiz Mueller MD Primary Care Provider ANNETTA KRAUSE Attending Unavailable MOIZ MUELLER Primary Care Unavailable KYLAH DIMAS Attending Unavailable SELF Referring Unavailable MOIZ MUELLER Primary Care Unavailable Dr. Moiz Mueller MD Primary Care Provider Dr. Moiz Mueller MD Attending Provider [phone] Dr. Moiz Mueller MD Referring Provider [phone] Gallito JAMA, Misael Rivera Unavailable NONE, NONE Unavailable Moiz Garza MD Dr. Moiz Mueller MD Primary Care Physician Dr. Moiz Mueller MD Attending Physician [phone] Sarahi Eli MD Attending Physician Sarahi Eli MD Referring Provider Moiz Mueller Attending Unavailable [...] Unavailable Schinner, Moiz E Referring Unavailable Antonella, [place] Attending Unavailable Antonella, Edd Referring Unavailable Schinner, Moiz E Primary Care Unavailable Antonella, Edd Consulting Unavailable Allergies Allergy Classification Reported Allergen(s) Allergy Type Date of Onset Reaction(s) Facility (20 sources) Ramipril; Translations: [RAMIPRIL] Drug Allergy 1 Other: See Comments [facility] (4 sources) nabumetone; Translations: [NABUMETONE] [facility] Work Phone: (1 source) Ramipril Drug Allergy 1 [facility] (1 source) Ramipril Drug Allergy 4 [facility] Repository Medications Current Medications Medication Drug Class(es) Dates Sig (Normalized) Sig (Original) Adult Aspirin Regimen 81 mg tablet,delayed release (DR/EC) (1 source) Start: 12-14-2020 take 1 tablet by mouth once daily Adult Aspirin Regimen 81 mg tablet,delayed release (DR/EC) 1 tablet by mouth once a day active Azra Owen AT [facility] amLODIPine [...] TABS One tablet by mouth daily ASPIRIN [id number] Aurelia M Bradley Start: 07-28-2011 take 1 tablet by bereket th once daily ASPIRIN EC 81 MG TBEC One tablet by mouth daily ASPIRIN [id number] Stephanie Sparrow RN Start: 06-21-2005 ASPIRIN 81 [...] BY MOUTH DAILY active Keyanna Alejo MA [facility] cephalexin [...] as needed for pain active Vilma Jaramillo [facility] levothyroxine sodium 0.088 [...] by mouth once daily active Ayla Chauhan [facility] take 1 capsule [...] this medication. active Stephanie Moya PA-C, [address] [place] [address] [facility] [address] [facility] VITAMIN D3 TABLET (1 source) Start: 02-01-2021 take 1 tablet by mouth once daily VITAMIN D3 TABLET 4000 unit by mouth once a day active Azra Owen AT [facility] vitamin D3-vitamin K2 1,250-200 mcg cap (3 [...] once daily ALFUZOSIN HCL ER 10 MG [id number] One tablet by mouth daily ALFUZOSIN HCL [id number] Unique Zamorano RN atorvastatin 10 mg oral [...] One tablet by mouth daily CLOPIDOGREL BISULFATE [id number] Cezar Franco MD diphenhydrAMINE hydrochloride 25 mg [...] HYCLATE CAPS 20mg daily DOXYCYCLINE HYCLATE CAPS [id number] Edd Berman MD Start: 04-23-2014 DOXYCYCLINE HY CLATE CAPS 20mg daily DOXYCYCLINE HYCLATE CAPS [id number] Edd Berman MD Start: 04-23-2014 End: 01-22-2015 DOXYCYCLINE HYCLATE CAPS 20m g daily DOXYCYCLINE HYCLATE CAPS [id number] Edd Berman MD [id number] 0.3 ml EPINEPHrine 1 mg/ml auto-injector (18 [...] TABS One tablet by mouth daily HYDROCHLOROTHIAZIDE [id number] Edd Berman MD levocetirizine dihydrochloride 5 mg [...] One tablet by mouth daily MULTIPLE VITAMIN [id number] Aurelia Huerta Start: 07-28-2011 End: 10-02-2012 take 1 tablet by mouth once daily MULTIVITAMINS TABS One tablet by mouth daily MULTIPLE VITAMIN 72508264717 Unique Zamorano RN MULTIPLE VITAMIN (10 sources) Start: 07-28-2011 take 1 tablet by mouth once daily MULTIVITAMINS TABS One tablet by mouth daily MULTIPLE VITAMIN [id number] Aurelia Huerta Start: 07-28-2011 End: 10-02-2012 take 1 tablet by mouth once daily MULTIVITAMINS TABS One tablet by mouth daily MULTIPLE VITAMIN 51168199382 Unique Zamorano RN predniSONE 20 mg oral [...] CAPS One tablet by mouth daily RAMIPRIL 27148899525 Edd Berman MD Start: 10-02-2012 take 1 tablet by bereket th once daily ALTACE 5 MG CAPS One tablet by mouth daily RAQUELIPRIL [id number] Edd Berman MD Start: 07-28-2011 take 1 tablet by bereket th once daily ALTACE 10 MG CAPS One tablet by mouth daily RAMIPRIL [id number] Edd Berman MD Start: 09-19-2006 End: 08-27-2020 [...] (10 sources) Long-term drug therapy; Translations: [Other custodial (current) drug therapy] Onset: 4 08-05-2015 Unclassified [...] (current) use of other medications; Translations: [Other extermination inspector (current) drug therapy] Onset: 4 11-13-2013 [...] By: Ind[place] Llamas on 04-25-2025 US Vein [facility] [address] [place] [address] Venous Duplex US, Unilateral 04/24/25 1557 MR#: [id number] Acct: [id number] Name: MESSI VILLA Rep #:[id number] : [...] Dictated: 04/24/25 1557 Date Transcribed: 04/25/25 115 Finisher Operator: Signed [facility] Other Phone: Venous Duplex US, Unilateral on 2025 Venous Duplex US, Unilateral [facility] [address] [place] [address] Venous Duplex US, Unilateral 04/24/257 MR#: [id number] Acct: [id number] Name: MESSI VILLA Rep #: [id number] : 1945 80 From: Indio Llamas MD [...] 1151 Date Indio Llamas MD CC: Dr. Sarahi Eli MD; Dr. Moiz Mueller MD Date Dictated: 04/24/25 1557 Date Transcribed: 04/25/25 115 Finisher Operator: Signed [facility] 04-20-2025 [facility] Telephone (LASHA) MESSI VILLA ([id number]) 1945 M Date Time Provider Department 04/20/25 [...] to send it as a document in [employer] instead of sending as an email. With [...] Fully Assessed Reason for Visit: Patient Question [6062] Prescriptions as of 04/20/2025 - vitamin D3-vitamin [...] Status:Closed by MIR MELCHOR on 04/20/25 Normal [facility] CBC W/Diff, Automatedon 07-2 Absolute Neut Normal 2.0-7.7 [facility] Comment on above: Order Comment: Order Date: 05/13/24 Order Info: 0786-1 - CMP Result Comment: SOLANGET OR ERVIN ONLY WANTED T4F Performed By: #### L 500.4050 #### [facility] [address] [place], [address] HCT Normal 40-54 [facility] Comment on above: Order Comment: Order Date: 05/13/24 Order Info: 0786-1 - CMP Result Comment: DOCT OR SCHINNER ONLY WANTED T4F Performed By: #### L 500.4050 #### [facility] [address] [place], [address] HGB Normal 13.0-16.5 [facility] Comment on above: Order Comment: Order Date: 05/13/24 Order Info: 0786-1 - CMP Result Comment: DOCT OR SCHINNER ONLY WANTED T4F Performed By: #### L 500.4050 #### [facility] [address] [place], [address] MCH Normal 27.0-32.0 [facility] Comment on above: Order Comment: Order Date: 05/13/24 Order Info: 0786-1 - CMP Result Comment: DOCT OR SCHINNER ONLY WANTED T4F Performed By: #### L 500.4050 #### [facility] [address] [place], [address] MCHC Normal 32-36 [facility] Comment on above: Order Comment: Order Date: 05/13/24 Order Info: 0786-1 - CMP Result Comment: DOCT OR SCHINNER ONLY WANTED T4F Performed By: #### L 500.4050 #### [facility] [address] [place], [address] MCV Normal 80-94 [facility] Comment on above: Order Comment: Order Date: 05/13/24 Order Info: 0786-1 - CMP Result Comment: DOCT OR SCHINNER ONLY WANTED T4F Performed By: #### L 500.4050 #### [facility] [address] [place], [address] NEUT% Normal 47-70 [facility] Comment on above: Order Comment: Order Date: 05/13/24 Order Info: 0786-1 - CMP Result Comment: DOCT OR SCHINNER ONLY WANTED T4F Performed By: #### L 500.4050 #### [facility] [address] [place], [address] PLT Normal 150-450 [facility] Comment on above: Order Comment: Order Date: 05/13/24 Order Info: 07-1 - CMP Result Comment: DOCT OR SCHINNER ONLY WANTED T4F Performed By: #### L 500.4050 #### [facility] [address] [place], [address] RBC Normal 4.6-6.2 [facility] Comment on above: Order Comment: Order Date: 05/13/24 Order Info: 785-1 - CMP Result Comment: DOCT OR SCHINNER ONLY WANTED T4F Performed By: #### L 500.4050 #### [facility] [address] [place], [address] RDW CV Normal 11.6-14.6 [facility] Comment on above: Order Comment: Order Date: 05/13/24 Order Info: 785-1 - CMP Result Comment: DOCT OR SCHINNER ONLY WANTED T4F Performed By: #### L 500.4050 #### [facility] [address] [place], [address] RDW SD Normal 35.1-43.9 [facility] Comment on above: Order Comment: Order Date: 05/13/24 Order Info: 07-1 - CMP Result Comment: DOCT OR SCHINNER ONLY WANTED T4F Performed By: #### L 500.4050 #### [facility] [address] [place], [address] WBC Normal 4.4-11.0 [facility] Comment on above: Order Comment: Order Date: 05/13/24 Order Info: 07-1 - CMP Result Comment: DOCT OR SCHINNER ONLY WANTED T4F Performed By: #### L 500.4050 #### [facility] [address] [place], [address] T4 Free Directon 02-20-2025 T4 FREE DIRECT 1.50 ng/dL High 0.76-1.46 [facility] Comment on above: Order Comment: Order Date: 05/13/24 Order Info: 0786-1 - CMP Performed By: #### L 500.4050 #### [facility] [address] [place], [address] T4 freeOrdered By: Moiz pina on 02-20-2025 Free T4 [Mass/Vol] 1.50 ng/dL High 0.76-1.46 [facility] Relevant diagnostic tests/la boratory data Narrativeon 02-18-2025 Fall risk assessment no [employer] Work Phone: MEDS REVIEW Documentation of current medications (procedure) [employer]. Work Phone: MEDS REVIEWD Medications reviewed with changes [employer]. Work Phone: MRI HX of the left shoulder on 02/18/2025 at [facility] [employer]. Work Phone: Absolute lymphocyte countOrd ered By: Moiz Mueller on 01-20-2025 Lymphocytes Auto (Unsp spec) [#/Vol] 1.65 10*3/uL 0.83-4.51 [facility] Absolute neutrophil countOrd ered By: Moiz Mueller on 01-20-2025 Neutrophils (Bld) [#/Vol] 3.2 10*3/uL 2.0-7.7 [facility] Anion gap in Serum or Plasma Ordered By: Moiz Mueller on 01-20-2025 Anion gap [Moles/Vol] 12 mmol/L 5- [facility] Automated lymphocyte count a s percentage of total leukocytesOrdered By: Moiz Mueller on 01-20-2025 Lymphocytes/100 WBC Auto (Unsp spec) 29.0 % 19-41 [facility] BUN/creatinine ratioOrdered By: Moiz Mueller on 01-20-2025 Urea nitrogen/Creatinine [Mass ratio] 23.1 mg/mg High 10-20 [facility] Basophil percentageOrdered B y: Moiz Mueller on 01-20-2025 Basophils/100 WBC (Bld) 0.7 % 0-1 [facility] Bilirubin Test strip Ql (U)O rdered By: Moiz Mueller on 01-20-2025 Bilirubin Ql (U) Negative Negative [facility] Bilirubin, totalOrdered By: Moiz Mueller on 01-20-2025 Bilirubin [Mass/Vol] 0.64 mg/dL 0.00-1.30 [facility] CBC W/Diff, Automatedon 12-29 Absolute Lymph 1.65 X10 3/uL Normal 0.83-4.51 [facility] Comment on above: Order Comment: Order Date: 09/11/24 Order Info: 0184-1 - CBCD Performed By: #### L 501.9520, L500.4050, L506.0400, L500.4100, L100.0100 #### [facility] [address] [place], [address] Absolute Neut 3.2 X10 3/uL Normal 2.0-7.7 [facility] Comment on above: Order Comment: Order Date: 09/11/24 Order Info: 0184-1 - CBCD Performed By: #### L 501.9520, L500.4050, L506.0400, L500.4100, L100.0100 #### [facility] [address] [place], [address] Basophils/100 WBC (Bld) 0.7 % Normal 0-1 [facility] Comment on above: Order Comment: Order Date: 09/11/24 Order Info: 0184-1 - CBCD Performed By: #### L 501.9520, L500.4050, L506.0400, L500.4100, L100.0100 #### [facility] [address] [place], [address] Eosinophils/100 WBC (Bld) 3.7 % Normal 0-5 [facility] Comment on above: Order Comment: Order Date: 09/11/24 Order Info: 0184-1 - CBCD Performed By: #### L 501.9520, L500.4050, L506.0400, L500.4100, L100.0100 #### [facility] [address] [place], [address] Erythrocyte distribution width (RBC) [Ratio] 13.1 % Normal 11.6-14.6 [facility] Comment on above: Order Comment: Order Date: 09/11/24 Order Info: 0184-1 - CBCD Performed By: #### L 501.9520, L500.4050, L506.0400, L500.4100, L100.0100 #### [facility] [address] [place], [address] Hematocrit (Bld) [Volume fraction] 41.8 % Normal 40-54 [facility] Comment on above: Order Comment: Order Date: 09/11/24 Order Info: 0184-1 - CBCD Performed By: #### L 501.9520, L500.4050, L506.0400, L500.4100, L100.0100 #### [facility] [address] [place], [address] Hemoglobin (Bld) [Mass/Vol] 14.6 g/dL Normal 13.0-16.5 [facility] Comment on above: Order Comment: Order Date: 09/11/24 Order Info: 0184-1 - CBCD Performed By: #### L 501.9520, L500.4050, L506.0400, L500.4100, L100.0100 #### [facility] [address] [place], [address] IG% 0.200 Normal 0.0-0.9 [facility] Comment on above: Order Comment: Order Date: 09/11/24 Order Info: 0184-1 - CBCD Result Comment: IG% - Immature Granulocytes (promyelocytes, myelocytes and metamyelocytes) > 1% indicates that a LEFT SHIFT is Present. Performed By: #### L 501.9520, L500.4050, L506.0400, L500.4100, L100.0100 #### [facility] [address] [place], [address] Lymphocytes/100 WBC (Bld) 29.0 % Normal 19-41 [facility] Comment on above: Order Comment: Order Date: 09/11/24 Order Info: 0184-1 - CBCD Performed By: #### L 501.9520, L500.4050, L506.0400, L500.4100, L100.0100 #### [facility] [address] [place], [address] MCH (RBC) [Entitic mass] 32.5 pg High 27.0-32.0 [facility] Comment on above: Order Comment: Order Date: 09/11/24 Order Info: 0184- - CBCD Performed By: #### L 501.9520, L500.4050, L506.0400, L500.4100, L100.0100 #### [facility] [address] [place], [address] MCHC (RBC) [Mass/Vol] 34.9 g/dL Normal 32-36 [facility] Comment on above: Order Comment: Order Date: 09/11/24 Order Info: 0184- - CBCD Performed By: #### L 501.9520, L500.4050, L506.0400, L500.4100, L100.0100 #### [facility] [address] [place], [address] MCV (RBC) [Entitic vol] 93.1 fL Normal 80-94 [facility] Comment on above: Order Comment: Order Date: 09/11/24 Order Info: 0184-1 - CBCD Performed By: #### L 501.9520, L500.4050, L506.0400, L500.4100, L100.0100 #### [facility] [address] [place], [address] Monocytes/100 WBC (Bld) 10.6 % High 0-10 [facility] Comment on above: Order Comment: Order Date: 09/11/24 Order Info: 0184-1 - CBCD Performed By: #### L 501.9520, L500.4050, L506.0400, L500.4100, L100.0100 #### [facility] [address] [place], [address] Neutrophils/100 WBC (Bld) 55.8 % Normal 47-70 [facility] Comment on above: Order Comment: Order Date: 09/11/24 Order Info: 0184-1 - CBCD Performed By: #### L 501.9520, L500.4050, L506.0400, L500.4100, L100.0100 #### [facility] [address] [place], [address] Nucleated RBC (Bld) [#/Vol] 0 10*3/uL Normal 0-5 [facility] Comment on above: Order Comment: Order Date: 09/11/24 Order Info: 0184-1 - CBCD Performed By: #### L 501.9520, L500.4050, L506.0400, L500.4100, L100.0100 #### [facility] [address] [place], [address] Platelet mean volume (Bld) [Entitic vol] 10.6 fL Normal 6.2-12.0 [facility] Comment on above: Order Comment: Order Date: 09/11/24 Order Info: 0184-1 - CBCD Performed By: #### L 501.9520, L500.4050, L506.0400, L500.4100, L100.0100 #### [facility] [address] [place], [address] Platelets (Bld) [#/Vol] 240 10*3/uL Normal 150-450 [facility] Comment on above: Order Comment: Order Date: 09/11/24 Order Info: 0184-1 - CBCD Performed By: #### L 501.9520, L500.4050, L506.0400, L500.4100, L100.0100 #### [facility] [address] [place], [address] RBC (Bld) [#/Vol] 4.49 10*6/uL Low 4.6-6.2 [facility] Comment on above: Order Comment: Order Date: 09/11/24 Order Info: 0184-1 - CBCD Performed By: #### L 501.9520, L500.4050, L506.0400, L500.4100, L100.0100 #### [facility] [address] [place], [place], [address] RDW SD 44.9 fl High 35.1-43.9 [facility] Comment on above: Order Comment: Order Date: 09/11/24 Order Info: 0184-1 - CBCD Performed By: #### L 501.9520, L500.4050, L506.0400, L500.4100, L100.0100 #### [facility] [address] [place], [address] WBC (Bld) [#/Vol] 5.7 10*3/uL Normal 4.4-11.0 [facility] Comment on above: Order Comment: Order Date: 09/11/24 Order Info: 0184-1 - CBCD Performed By: #### L 501.9520, L500.4050, L506.0400, L500.4100, L100.0100 #### [facility] [address] [place], [place], [address] Calculated very low density lipoprotein (VLDL) cholesterol measurementOrdered By: Moiz Mueller on 01-20-2025 Calculated very low density lipoprotein (VLDL) cholesterol measurement 14 mg/dL 5-40 [facility] Carbon dioxide, total [Moles /volume] in Central venous bloodOrdered By: Moiz Mueller on 01-20-2025 CO2 [Moles/Vol] 25.9 mmol/L 21.0-32.0 [facility] Chloride assayOrdered By: Annabella Mueller on 01-20-2025 Chloride [Moles/Vol] 102 mmol/L 98-108 [facility] Comprehensive Metabolic Prof ilon 01-20-2025 Albumin [Mass/Vol] 4.1 g/dL Normal 3.4-4.8 [facility] Comment on above: Order Comment: Order Date: 09/11/24 Order Info: 86-1 - CMP Order Info: [id number] - LIPID Order Info: 3 - TSH Order Info: 7 - T4F Performed By: #### L 501.9520, L500.4050, L506.0400, L500.4100, L100.0100 #### [facility] [address] [place], [place], [address] Albumin/Globulin [Mass ratio] 1.3 {ratio} Normal 0.9-2.4 [facility] Comment on above: Order Comment: Order Date: 09/11/24 Order Info: 785-1 - CMP Order Info: [id number] - LIPID Order Info: 3 - TSH Order Info: 7 - T4F Performed By: #### L 501.9520, L500.4050, L506.0400, L500.4100, L100.0100 #### [facility] [address] [place], [address] ALK PHOS 89 U/L Normal 40-129 [facility] Comment on above: Order Comment: Order Date: 09/11/24 Order Info: 0786-1 - CMP Order Info: [id number] - LIPID Order Info: 3 - TSH Order Info: [id number] - T4F Performed By: #### L 501.9520, L500.4050, L506.0400, L500.4100, L100.0100 #### [facility] [address] [place], [address] ALT [Catalytic activity/Vol] 15 U/L Normal <=46 [facility] Comment on above: Order Comment: Order Date: 09/11/24 Order Info: 0786-1 - CMP Order Info: [id number] - LIPID Order Info: 301-3 - TSH Order Info: 3024-7 - T4F Performed By: #### L 501.9520, L500.4050, L506.0400, L500.4100, L100.0100 #### [facility] [address] [place], [address] AST [Catalytic activity/Vol] 28 U/L Normal <=37 [facility] Comment on above: Order Comment: Order Date: 09/11/24 Order Info: 785-1 - CMP Order Info: [id number] - LIPID Order Info: 3016-3 - TSH Order Info: 3024-7 - T4F Performed By: #### L 501.9520, L500.4050, L506.0400, L500.4100, L100.0100 #### [facility] [address] [place], [address] Bilirubin [Mass/Vol] 0.64 mg/dL Normal 0.00-1.30 [facility] Comment on above: Order Comment: Order Date: 09/11/24 Order Info: 0786-1 - CMP Order Info: [id number] - LIPID Order Info: 6-3 - TSH Order Info: 3024-7 - T4F Performed By: #### L 501.9520, L500.4050, L506.0400, L500.4100, L100.0100 #### [facility] [address] [place], [address] BUN/CRE 23.1 RATIO High 10-20 [facility] Comment on above: Order Comment: Order Date: 09/11/24 Order Info: 0786-1 - CMP Order Info: [id number] - LIPID Order Info: [id number] - TSH Order Info: 3024-7 - T4F Performed By: #### L 501.9520, L500.4050, L506.0400, L500.4100, L100.0100 #### [facility] [address] [place], [address] Calcium [Mass/Vol] 9.4 mg/dL Normal 7.6-11.0 [facility] Comment on above: Order Comment: Order Date: 09/11/24 Order Info: 0786-1 - CMP Order Info: [id number] - LIPID Order Info: [id number] - TSH Order Info: 3024-7 - T4F Performed By: #### L 501.9520, L500.4050, L506.0400, L500.4100, L100.0100 #### [facility] [address] [place], [address] Chloride [Moles/Vol] 102 mmol/L Normal 98-108 [facility] Comment on above: Order Comment: Order Date: 09/11/24 Order Info: 07-1 - CMP Order Info: [id number] - LIPID Order Info: [id number] - TSH Order Info: 3024-7 - T4F Performed By: #### L 501.9520, L500.4050, L506.0400, L500.4100, L100.0100 #### [facility] [facility] [address] [place], [address] CO2 [Moles/Vol] 25.9 mmol/L Normal 21.0-32.0 [facility] Comment on above: Order Comment: Order Date: 09/11/24 Order Info: [id number] - CMP Order Info: [id number] - LIPID Order Info: [id number] - TSH Order Info: [id number] - T4F Performed By: #### L 501.9520, L500.4050, L506.0400, L500.4100, L100.0100 #### [facility] [address] [place], [address] Creatinine [Mass/Vol] 1.20 mg/dL Normal 0.70-1.20 [facility] Comment on above: Order Comment: Order Date: 09/11/24 Order Info: [id number] - CMP Order Info: - LIPID Order Info: 3 - TSH Order Info: [id number] - T4F Performed By: #### L 501.9520, L500.4050, L506.0400, L500.4100, L100.0100 #### [facility] [address] [place], [address] GAP 12 Normal 5-15 [facility] Comment on above: Order Comment: Order Date: 09/11/24 Order Info: [id number]- - CMP Order Info: - LIPID Order Info: 3 - TSH Order Info: 7 - T4F Performed By: #### L 501.9520, L500.4050, L506.0400, L500.4100, L100.0100 #### [facility] [address] [place], [place], [address] GFR/1.73 sq M.predicted among non-blacks MDRD (S/P/Bld) [Vol rate/Area] 62 mL/min/{1.73_m2} Normal >60 [facility] Comment on above: Order Comment: Order Date: 09/11/24 Order Info: [id number] - CMP Order Info: [id number] - LIPID Order Info: 3 - TSH Order Info: 7 - T4F Result Comment: mL/m in/1.73m2 CKD-EPI Creatinine Equation (2020) Performed By: #### L 501.9520, L500.4050, L506.0400, L500.4100, L100.0100 #### [facility] [address] [place], [place], [address] Globulin (S) [Mass/Vol] 3.1 g/dL Normal 2.2-4.2 [facility] Comment on above: Order Comment: Order Date: 09/11/24 Order Info: [id number] - CMP Order Info: [id number] - LIPID Order Info: [id number] - TSH Order Info: 7 - T4F Performed By: #### L 501.9520, L500.4050, L506.0400, L500.4100, L100.0100 #### [facility] [address] [place], [address] Glucose [Mass/Vol] 95 mg/dL Normal 70-99 [facility] Comment on above: Order Comment: Order Date: 09/11/24 Order Info: 86-1 - CMP Order Info: [id number] - LIPID Order Info: [id number] - TSH Order Info: 7 - T4F Performed By: #### L 501.9520, L500.4050, L506.0400, L500.4100, L100.0100 #### [facility] [address] [place], [address] Potassium [Moles/Vol] 3.8 mmol/L Normal 3.3-5.1 [facility] Comment on above: Order Comment: Order Date: 09/11/24 Order Info: [id number] - CMP Order Info: [id number] - LIPID Order Info: [id number] - TSH Order Info: 7 - T4F Performed By: #### L 501.9520, L500.4050, L506.0400, L500.4100, L100.0100 #### [facility] [address] [place], [address] Sodium [Moles/Vol] 140 mmol/L Normal 133-145 [facility] Comment on above: Order Comment: Order Date: 09/11/24 Order Info: 07-1 - CMP Order Info: [id number] - LIPID Order Info: 3 - TSH Order Info: [id number] - T4F Performed By: #### L 501.9520, L500.4050, L506.0400, L500.4100, L100.0100 #### [facility] [address] [place], [address] T PROT 7.2 g/dL Normal 5.9-8.4 [facility] Comment on above: Order Comment: Order Date: 09/11/24 Order Info: [id number] - CMP Order Info: [id number] - LIPID Order Info: [id number] - TSH Order Info: [id number] - T4F Performed By: #### L 501.9520, L500.4050, L506.0400, L500.4100, L100.0100 #### [facility] [address] [place], [place], [address] Urea nitrogen [Mass/Vol] 28 mg/dL High 4-19 [facility] Comment on above: Order Comment: Order Date: 09/11/24 Order Info: [id number] - CMP Order Info: [id number] - LIPID Order Info: 6-3 - TSH Order Info: [id number] - T4F Performed By: #### L 501.9520, L500.4050, L506.0400, L500.4100, L100.0100 #### [facility] [address] [place], [place], [address] Eosinophil percentageOrdered By: Moiz Mueller on 01-20-2025 Eosinophils/100 WBC (Bld) 3.7 % 0-5 [facility] Erythrocyte distribution wid th ratioOrdered By: Moiz Mueller on 01-20-2025 Erythrocyte distribution width (RBC) [Ratio] 13.1 % 11.6-14.6 [facility] Erythrocyte distribution wid th standard deviationOrdered By: Moiz Mueller on 01-20-2025 Erythrocyte distribution width (RBC) [Ratio] 44.9 fl High 35.1-43.9 [facility] Glomerular filtration rate ( GFR) estimation/1.73 sq m using serum, plasma, or whole bOrdered By: Moiz Mueller on 01-20-2025 GFR/1.73 sq M.predicted among non-blacks MDRD (S/P/Bld) [Vol rate/Area] 62 mL/min/{1.73_m2} >60 [facility] Comment on above: mL/min/1.73m2 CKD-EP I Creatinine Equation (2020) Hematocrit Auto (Bld) [Volum e fraction]Ordered By: Moiz Mueller on 01-20-2025 Hematocrit (Bld) [Volume fraction] 41.8 % 40-54 [facility] Hemoglobin measurementOrdere d By: Moiz Mueller on 01-20-2025 Hemoglobin (Bld) [Mass/Vol] 14.6 g/dL 13.0-16.5 [facility] Immature granulocytes/100 WB C Auto (Bld)Ordered By: Moiz Mueller on 01-20-2025 Immature granulocytes/100 WBC (Bld) 0.200 % 0.0-0.9 [facility] Comment on above: IG% - Immature Granu locytes (promyelocytes, myelocytes and metamyelocytes) > 1% indicates that a LEFT SHIFT is Present. Ketones Test strip Ql (U)Ord ered By: Moiz Mueller on 01-20-2025 Ketones Ql (U) Negative Negative [facility] LDL calc ser/plasOrdered By: Moiz Mueller on 01-20-2025 Cholesterol in LDL [Mass/Vol] 63 mg/dL [facility] Comment on above: Obdfseqzpc=626-128 m g/dL & Higher Mtof=265 mg/dL or greater Laboratory - Chemistry and C hemistry - challengeOrdered By: Moiz Mueller on 01-20-2025 AST [Catalytic activity/Vol] 28 U/L <38 [facility] Lipid Profileon 01-20-2025 CHOL:HDL 2.37 Normal [facility] Comment on above: Order Comment: Order Date: 09/11/24 Order Info: [id number] - CMP Order Info: [id number] - LIPID Order Info: [id number] - TSH Order Info: [id number] - T4F Performed By: #### L 501.9537, L500.4050, L506.0400, L500.4100, L100.0100 #### [facility] [address] [place], [address] Cholesterol [Mass/Vol] 132 mg/dL Normal <=200 [facility] Comment on above: Order Comment: Order Date: 09/11/24 Order Info: [id number] - CMP Order Info: [id number] - LIPID Order Info: [id number] - TSH Order Info: [id number] T4F Result Comment: Chol esterol level, Desirable <200 mg/dL Borderline high cholesterol 200-239 mg/dL High cholesterol >=240 mg/dL Recommendations of the NCEP Adult Treatment Panel for the following risk-cutoff thresholds for the [place] population. Performed By: #### L 501.9520, L500.4050, L506.0400, L500.4100, L100.0100 #### [facility] [address] [place], [address] Cholesterol in HDL [Mass/Vol] 56 mg/dL Normal [facility] Comment on above: Order Comment: Order [...] L 501.9520, L500.4050, L506.0400, L500.4100, L100.0100 #### [facility] [address] [place], [address] Cholesterol in LDL [Mass/Vol] 63 mg/dL Normal [facility] Comment on above: Order Comment: Order Date: 09/11/24 Order Info: [id number] - CMP Order Info: - LIPID Order Info: [id number] - TSH Order Info: [id number] T4F Result Comment: Bord wwfees=959-278 mg/dL Higher Qclw=667 mg/dL or greater Performed By: #### L 501.9520, L500.4050, L506.0400, L500.4100, L100.0100 #### [facility] [address] [place], [address] Cholesterol in VLDL [Mass/Vol] 14 mg/dL Normal 5-40 [facility] Comment on above: Order Comment: Order Date: 09/11/24 Order Info: [id number] - CMP Order Info: [id number] - LIPID Order Info: [id number] - TSH Order Info: 7 - T4F Performed By: #### L 501.9520, L500.4050, L506.0400, L500.4100, L100.0100 #### [facility] [address] [place], [address] Triglyceride [Mass/Vol] 69 mg/dL Normal [facility] Comment on above: Order Comment: Order Date: 09/11/24 Order Info: [id number] - CMP Order Info: [id number] - LIPID Order Info: 3 - TSH Order Info: 7 - T4F Result Comment: The drugs N-Acetylcysteine and Metamizole may falsely depress this assay. Normal range: <150 mg/dL Borderline High: 150-199 mg/dL High: 200-499 mg/dL Very High: >500 mg/dL Performed By: #### L 501.9520, L500.4050, L506.0400, L500.4100, L100.0100 #### [facility] [address] [place], [address] MCV (mean corpuscular volume ) determinationOrdered By: Moiz Mueller on 01-20-2025 MCV (RBC) [Entitic vol] 93.1 fL 80-94 [facility] Mean corpuscular hemoglobin (MCH) determinationOrdered By: Moiz Mueller on 01-20-2025 MCH (RBC) [Entitic mass] 32.5 pg High 27.0-32.0 [facility] Mean corpuscular hemoglobin concentration (MCHC) determinationOrdered By: Moiz Mueller on 01-20-2025 MCHC (RBC) [Mass/Vol] 34.9 g/dL 32-36 [facility] Mean platelet volume determi nationOrdered By: Moiz Mueller on 01-20-2025 Platelet mean volume (Bld) [Entitic vol] 10.6 fL 6.2-12.0 [facility] Microscopic analysis of urin e for red blood cells (RBC)Ordered By: Moiz Mueller on 01-20-2025 Microscopic analysis of urine for red blood cells (RBC) 0-5 SEEN /hpf 0-5 [facility] Monocyte percentageOrdered B y: Moiz Mueller on 01-20-2025 Monocytes/100 WBC (Bld) 10.6 % High 0-10 [facility] Mucus LM Ql (Urine sed)Order ed By: Moiz Mueller on 01-20-2025 Mucus Ql (Urine sed) 0 SEEN /hpf [facility] Neutrophil percentageOrdered By: Moiz Mueller on 01-20-2025 Neutrophils/100 WBC (Bld) 55.8 % 47-70 [facility] Nitrite Test strip Ql (U)Ord ered By: Moiz Mueller on 01-20-2025 Nitrite Ql (U) Negative Negative [facility] Nucleated red blood cell per centageOrdered By: Moiz Mueller on 01-20-2025 Nucleated RBC/100 WBC (Bld) [Ratio] 0 % 0-5 [facility] Platelet countOrdered By: Annabella Mueller on 01-20-2025 Platelets (Bld) [#/Vol] 240 10*3/uL 150-450 [facility] Potassium measurement (mass/ volume)Ordered By: Moiz Mueller on 01-20-2025 Potassium (Unsp spec) [Mass/Vol] 3.8 mmol/L 3.3-5.1 [facility] Protein Test strip Ql (U)Ord ered By: Moiz Mueller on 01-20-2025 Protein Ql (U) 30 mg/dl High Negative [facility] RBC Auto (Bld) [#/Vol]Ordere d By: Moiz Mueller on 01-20-2025 RBC (Bld) [#/Vol] 4.49 10*6/uL Low 4.6-6.2 [facility] Screening total cholesterol/ high density lipoprotein (HDL) cholesterol ratioOrdered By: Moiz Mueller on 01-20-2025 Cholesterol.total/Safia sterol in HDL [Mass ratio] 2.37 {ratio} [facility] Serum creatinine measurement (mass/volume)Ordered By: Moiz Mueller on 01-20-2025 Creatinine [Mass/Vol] 1.20 mg/dL 0.70-1.20 [facility] Serum globulin measurementOr dered By: Moiz Mueller on 01-20-2025 Globulin (S) [Mass/Vol] 3.1 g/dL 2.2-4.2 [facility] Serum glucose measurement (m ass/volume)Ordered By: Moiz Mueller on 01-20-2025 Glucose [Mass/Vol] 95 mg/dL 70-99 [facility] Serum or plasma alanine montes de oca otransferase (ALT) measurementOrdered By: Moiz Mueller on 01-20-2025 ALT [Catalytic activity/Vol] 15 U/L <47 [facility] Serum or plasma albumin dulce urement (mass/volume)Ordered By: Moiz Mueller on 01-20-2025 Albumin [Mass/Vol] 4.1 g/dL 3.4-4.8 [facility] Serum or plasma albumin/glob ulin mass ratioOrdered By: Moiz Mueller on 01-20-2025 Albumin/Globulin [Mass ratio] 1.3 {ratio} 0.9-2.4 [facility] Serum or plasma alkaline anabell sphatase measurementOrdered By: Moiz Mueller on 01-20-2025 ALP [Catalytic activity/Vol] 89 U/L 40-129 [facility] Serum or plasma calcium dulce urement (mass/volume)Ordered By: Moiz Mueller on 01-20-2025 Calcium [Mass/Vol] 9.4 mg/dL 7.6-11.0 [facility] Serum or plasma cholesterol in HDL measurement (mass/volume)Ordered By: Moiz Mueller on 01-20-2025 Cholesterol in HDL [Mass/Vol] 56 mg/dL >40 [facility] Comment on above: National Cholesterol Education Program (NCEP) guidelines:<40 mg/dL: Low HDL-cholesterol (major risk factor for CHD)>= 60 mg/dL: High HDL-cholesterol (negative risk factor for CHD)HDL-cholesterol is affected by a number of factors, e.g. smoking, exercise, hormones, sex and age. Serum or plasma cholesterol measurement (mass/volume)Ordered By: Moiz Mueller on 01-20-2025 Cholesterol [Mass/Vol] 132 mg/dL <201 [facility] Comment on above: Cholesterol level, D esirable <200 mg/dLBorderline high cholesterol 200-239 mg/dLHigh cholesterol >=240 mg/dLRecommendations of the NCEP Adult Treatment Panel for the following risk-cutoff thresholds for the [place] population. Serum or plasma urea nitroge n measurement (mass/volume)Ordered By: Moiz Mueller on 01-20-2025 Urea nitrogen [Mass/Vol] 28 mg/dL High 4-19 [facility] Sodium levelOrdered By: Moiz Mueller on 01-20-2025 Sodium [Moles/Vol] 140 mmol/L 133-145 [facility] Squamous epithelial cells de tection in urine sediment by light microscopyOrdered By: Moiz Mueller on 01-20-2025 Epithelial cells.squamous LM Ql (Urine sed) 0-5 SEEN /hpf 0-5 [facility] T4 Free Directon 01-20-2025 T4 FREE DIRECT 1.50 ng/dL High 0.76-1.46 [facility] Comment on above: Order Comment: Order Date: 09/11/24Order Info: [id number] - CMPOrder Info: [id number] - LIPIDOrder Info: [id number] - TSHOrder Info: [id number] - T4F Performed By: #### L 501.9520, L500.4050, L506.0400, L500.4100, L100.0100 ####[facility] [address] [place], [address] T4 freeOrdered By: Moiz riveraer on 01-20-2025 Free T4 [Mass/Vol] 1.50 ng/dL High 0.76-1.46 [facility] TSH DL <= 0.005 mIU/L QnOrde red By: Moiz Mueller on 01-20-2025 TSH Qn 2.150 uIU/mL 0.300-4.200 [facility] Thyroid Stim Hormone (TSH)on 01-20-2025 TSH 2.150 uIU/mL Normal 0.300-4.200 [facility] Comment on above: Order Comment: Order Date: 09/11/24Order Info: [id number] - CMPOrder Info: [id number] - LIPIDOrder Info: [id number] - TSHOrder Info: [id number] - T4F Performed By: #### L 501.9520, L500.4050, L506.0400, L500.4100, L100.0100 ####[facility] [address] [place], [address] Total proteinOrdered By: Casey Mueller on 01-20-2025 Protein [Mass/Vol] 7.2 g/dL 5.9-8.4 [facility] Triglycerides measurementOrd ered By: Moiz Mueller on 01-20-2025 Triglyceride [Mass/Vol] 69 mg/dL <199 [facility] Comment on above: The drugs N-Acetylcy steine and Metamizole may falsely depress this assay. Normal range: <150 mg/dLBorderline High: 150-199 mg/dLHigh: 200-499 mg/dLVery High: >500 mg/dL Urinalysis, Completeon 01-20 EPI,SQUAMOUS 0-5 SEEN Normal 0-5 [facility] Comment on above: Order Comment: Urine , Random Performed By: #### L 506.1001, L400.0001 ####[facility] [address] [place], [address] RBC 0-5 SEEN Normal 0-5 [facility] Comment on above: Order Comment: Urine , Random Performed By: #### L 506.1001, L400.0001 ####[facility] [address] [place], [address] WBC 25-50 SEEN Normal 0-5 [facility] Comment on above: Order Comment: Urine , Random Performed By: #### L 506.1001, L400.0001 ####[facility] [address] [place], [address] BACTERIA 0 SEEN Normal None Seen [facility] Comment on above: Order Comment: Urine , Random Performed By: #### L 506.1001, L400.0001 ####[facility] [address] [place], [address] Mucus Ql (Urine sed) 0 SEEN Normal [facility] Comment on above: Order Comment: Urine , Random Performed By: #### L 506.1001, L400.0001 ####[facility] [address] [place], [address] Urine clarityOrdered By: Casey Mueller on 01-20-2025 Clarity (U) Sl. Cloudy Clear [facility] Urine color determinationOrd ered By: Moiz Mueller on 01-20-2025 Color (U) Yellow Yellow [facility] Urine glucose detectionOrder ed By: Moiz Mueller on 01-20-2025 Glucose Ql (U) Normal mg/dl Normal [facility] Urine leukocyte esterase det ection by dipstickOrdered By: Moiz Muleler on 01-20-2025 Leukocyte esterase Test strip Ql (U) 500 /ul High Negative [facility] Urine pHOrdered By: Moiz murphy on 01-20-2025 pH (U) 7.0 [pH] 5.0 - 8.0 [facility] Urine sediment bacteria coun t by microscopy (number/high power field)Ordered By: Moiz Mueller on 01-20-2025 Bacteria LM.HPF (Urine sed) [#/Area] 0 /[HPF] None Seen [facility] Urine specific gravity measu rementOrdered By: Moiz Mueller on 01-20-2025 Specific gravity (U) [Rel density] 1.010 1.002-1.030 [facility] Urine urobilinogen measureme ntOrdered By: Moiz Mueller on 01-20-2025 Urobilinogen Ql (U) Normal mg/dl Normal [facility] Vitamin D,25 Hydroxyon 01-20 Vitamin D 25-OH 44.0 ng/mL Normal 30-100 [facility] Comment on above: Order Comment: Order Date: 09/11/24Order Info: [id number] - CMPOrder Info: [id number] - LIPIDOrder Info: [id number] - TSHOrder Info: [id number] - T4F Result Comment: Rose min D Status Deficiency: <20 ng/mL (50nmol/L) Insufficiency: 20-30 ng/mL (50-75 nmol/L) Sufficiency: 30-100 ng/mL (75-250 nmol/L) Toxicity: >100 ng/mL (>250 nmol/L) Performed By: #### L 506.1001, L400.0001 ####[facility] [address] [place], [address] White blood cell (WBC) count Ordered By: Moiz Mueller on 01-20-2025 WBC (Bld) [#/Vol] 5.7 10*3/uL 4.4-11.0 [facility] White blood cell countOrdere d By: Moiz Mueller on 01-20-2025 White blood cell count 25-50 SEEN /hpf 0-5 [facility] CNOVon 11-14-2024 CNOV Office Visit (DMFPMN ) VILLAMESSI Sánchez ([id number]) 1945 M Date Time Provider Department 11/14/24 1:00 PM KYLAH DIMAS DMFPMN During your visit today, we recorded the following information about you: Kylah Dimas, S 11/14/2024 3:03 PM Signed [facility], Oral Surgery, AND Maxillofacial Prosthetics Date: [...] Retrodiskal ti (more content not included)... Normal [facility] Basic Metabolic Profile (BMP )on 09-10-2024 BUN/CRE 23.4 RATIO High 10-20 [facility] Comment on above: Order Comment: Order Date: 09/09/24 Order Info: [id number] - BMP Performed By: #### L 500.2500, L100.0100, L501.9985 #### [facility] [address] [place], [address] CA,Total 8.9 mg/dL Normal 8.5-10.1 [facility] Comment on above: Order Comment: Order Date: 09/09/24 Order Info: 0667- - BMP Performed By: #### L 500.2500, L100.0100, L501.9985 #### [facility] [address] [place], [address] Chloride [Moles/Vol] 101 mmol/L Normal 98-107 [facility] Comment on above: Order Comment: Order Date: 09/09/24 Order Info: 0667- - BMP Performed By: #### L 500.2500, L100.0100, L501.9985 #### [facility] [address] [place], [address] CO2 [Moles/Vol] 27.0 mmol/L Normal 21.0-32.0 [facility] Comment on above: Order Comment: Order Date: 09/09/24 Order Info: 0667-1 - BMP Performed By: #### L 500.2500, L100.0100, L501.9985 #### [facility] [address] [place], [address] Creatinine [Mass/Vol] 1.28 mg/dL Normal 0.70-1.30 [facility] Comment on above: Order Comment: Order Date: 09/09/24 Order Info: [id number] - BMP Result Comment: The validity of the calculated GFR GFRAA in patients over 70 years has not been determined. Clinical correlation is essential. Performed By: #### L 500.2500, L100.0100, L501.9985 #### [facility] [address] [place], [address] EST GFR - AA 70 mL/min Normal >60 [facility] Comment on above: Order Comment: Order Date: 09/09/24 Order Info: 0667-1 - BMP Result Comment: Afri can [place] GFR Calc Performed By: #### L 500.2500, L100.0100, L501.9985 #### [facility] [address] [place], [address] GAP 7 Normal 5-15 [facility] Comment on above: Order Comment: Order Date: 09/09/24 Order Info: 0667- - BMP Performed By: #### L 500.2500, L100.0100, L501.9985 #### [facility] [address] [place], [address] GFR/1.73 sq M.predicted among non-blacks MDRD (S/P/Bld) [Vol rate/Area] 58 mL/min/{1.73_m2} Low >60 [facility] Comment on above: Order Comment: Order Date: 09/09/24 Order Info: 0667- - BMP Result Comment: Non- GFR Calc Performed By: #### L 500.2500, L100.0100, L501.9985 #### [facility] [address] [place], [address] Glucose [Mass/Vol] 114 mg/dL High 74-106 [facility] Comment on above: Order Comment: Order Date: 09/09/24 Order Info: 0667-1 - BMP Result Comment: Fast ing Glucose result from 100 to 125 mg/dL suggests IMPAIRED HOMEOSTASIS per A.D.A. criteria. Performed By: #### L 500.2500, L100.0100, L501.9985 #### [facility] [address] [place], [address] Potassium [Moles/Vol] 3.7 mmol/L Normal 3.5-5.1 [facility] Comment on above: Order Comment: Order Date: 09/09/24 Order Info: 0667-1 - BMP Performed By: #### L 500.2500, L100.0100, L501.9985 #### [facility] [address] [place], [address] Sodium [Moles/Vol] 135 mmol/L Low 136-145 [facility] Comment on above: Order Comment: Order Date: 09/09/24 Order Info: 0667-1 - BMP Performed By: #### L 500.2500, L100.0100, L501.9985 #### [facility] [address] [place], [address] Urea nitrogen [Mass/Vol] 30 mg/dL High 7-18 [facility] Comment on above: Order Comment: Order Date: 09/09/24 Order Info: 0667-1 - BMP Performed By: #### L 500.2500, L100.0100, L501.9985 #### [facility] [address] [place], [address] CBC W/Diff, Automatedon 08-30 Absolute Lymph 1.60 X10 3/uL Normal 0.83-4.51 [facility] Comment on above: Order Comment: Order Date: 09/09/24 Order Info: 0184-1 - CBCD Performed By: #### L 500.2500, L100.0100, L501.9985 #### [facility] [address] [place], [address] Absolute Neut 5.1 X10 3/uL Normal 2.0-7.7 [facility] Comment on above: Order Comment: Order Date: 09/09/24 Order Info: 0184-1 - CBCD Performed By: #### L 500.2500, L100.0100, L501.9985 #### [facility] [address] [place], [address] Basophils/100 WBC (Bld) 0.1 % Normal 0-1 [facility] Comment on above: Order Comment: Order Date: 09/09/24 Order Info: 0184-1 - CBCD Performed By: #### L 500.2500, L100.0100, L501.9985 #### [facility] [address] [place], [address] Eosinophils/100 WBC (Bld) 4.1 % Normal 0-5 [facility] Comment on above: Order Comment: Order Date: 09/09/24 Order Info: 0184-1 - CBCD Performed By: #### L 500.2500, L100.0100, L501.9985 #### [facility] [address] [place], [address] Erythrocyte distribution width (RBC) [Ratio] 13.1 % Normal 11.6-14.6 [facility] Comment on above: Order Comment: Order Date: 09/09/24 Order Info: 0184-1 - CBCD Performed By: #### L 500.2500, L100.0100, L501.9985 #### [facility] [address] [place], [address] Hematocrit (Bld) [Volume fraction] 41.8 % Normal 40-54 [facility] Comment on above: Order Comment: Order Date: 09/09/24 Order Info: 0184-1 - CBCD Performed By: #### L 500.2500, L100.0100, L501.9985 #### [facility] Laboratory [address] [place], [address] Hemoglobin (Bld) [Mass/Vol] 13.9 g/dL Normal 13.0-16.5 [facility] Comment on above: Order Comment: Order Date: 09/09/24 Order Info: 0184-1 - CBCD Performed By: #### L 500.2500, L100.0100, L501.9985 #### [facility] [address] [place], [address] IG% 0.400 Normal 0.0-0.9 [facility] Comment on above: Order Comment: Order Date: 09/09/24 Order Info: 018- - CBCD Result Comment: IG% - Immature Granulocytes (promyelocytes, myelocytes and metamyelocytes) > 1% indicates that a LEFT SHIFT is Present. Performed By: #### L 500.2500, L100.0100, L501.9985 #### [facility] [address] [place], [address] Lymphocytes/100 WBC (Bld) 19.8 % Normal 19-41 [facility] Comment on above: Order Comment: Order Date: 09/09/24 Order Info: 01810-28 - CBCD Performed By: #### L 500.2500, L100.0100, L501.9985 #### [facility] [address] [place], [address] MCH (RBC) [Entitic mass] 31.7 pg Normal 27.0-32.0 [facility] Comment on above: Order Comment: Order Date: 09/09/24 Order Info: 01810-28 - CBCD Performed By: #### L 500.2500, L100.0100, L501.9985 #### [facility] [address] [place], [address] MCHC (RBC) [Mass/Vol] 33.3 g/dL Normal 32-36 [facility] Comment on above: Order Comment: Order Date: 09/09/24 Order Info: 018- - CBCD Performed By: #### L 500.2500, L100.0100, L501.9985 #### [facility] [address] [place], [address] MCV (RBC) [Entitic vol] 95.2 fL High 80-94 [facility] Comment on above: Order Comment: Order Date: 09/09/24 Order Info: 018- - CBCD Performed By: #### L 500.2500, L100.0100, L501.9985 #### [facility] [address] [place], [address] Monocytes/100 WBC (Bld) 12.0 % High 0-10 [facility] Comment on above: Order Comment: Order Date: 09/09/24 Order Info: 0184-1 - CBCD Performed By: #### L 500.2500, L100.0100, L501.9985 #### [facility] [address] [place], [address] Neutrophils/100 WBC (Bld) 63.6 % Normal 47-70 [facility] Comment on above: Order Comment: Order Date: 09/09/24 Order Info: 0184-1 - CBCD Performed By: #### L 500.2500, L100.0100, L501.9985 #### [facility] [address] [place], [address] Nucleated RBC (Bld) [#/Vol] 0 10*3/uL Normal 0-5 [facility] Comment on above: Order Comment: Order Date: 09/09/24 Order Info: 0184-1 - CBCD Performed By: #### L 500.2500, L100.0100, L501.9985 #### [facility] [address] [place], [address] Platelet mean volume (Bld) [Entitic vol] 11.1 fL Normal 6.2-12.0 [facility] Comment on above: Order Comment: Order Date: 09/09/24 Order Info: 0184-1 - CBCD Performed By: #### L 500.2500, L100.0100, L501.9985 #### [facility] [address] [place], [address] Platelets (Bld) [#/Vol] 225 10*3/uL Normal 150-450 [facility] Comment on above: Order Comment: Order Date: 09/09/24 Order Info: 0184-1 - CBCD Performed By: #### L 500.2500, L100.0100, L501.9985 #### [facility] [address] [place], [address] RBC (Bld) [#/Vol] 4.39 10*6/uL Low 4.6-6.2 [facility] Comment on above: Order Comment: Order Date: 09/09/24 Order Info: 0184-1 - CBCD Performed By: #### L 500.2500, L100.0100, L501.9985 #### [facility] [address] [place], [address] RDW SD 46.3 fl High 35.1-43.9 [facility] Comment on above: Order Comment: Order Date: 09/09/24 Order Info: 0184-1 - CBCD Performed By: #### L 500.2500, L100.0100, L501.9985 #### [facility] [address] [place], [address] WBC (Bld) [#/Vol] 8.1 10*3/uL Normal 4.4-11.0 [facility] Comment on above: Order Comment: Order Date: 09/09/24 Order Info: 0184-1 - CBCD Performed By: #### L 500.2500, L100.0100, L501.9985 #### [facility] [address] [place], [address] Hemoglobin A1con 09-10-2024 HbA1c (Bld) [Mass fraction] 6.2 % High 3.8-5.6 [facility] Comment on above: Order Comment: Order Date: 09/09/24 Order Info: 4548-4 - A1C Result Comment: Norm al < 5.7 % Prediabetic 5.7 - 6.4 % Diabetic >or= 6.5 % Please note range changes. Performed By: #### L 500.2500, L100.0100, L501.9985 #### [facility] [address] [place], [address] Hemoglobin A1con 09-07-2024 HbA1c (Bld) [Mass fraction] 6.0 % High 3.8-5.6 [facility] Comment on above: Order Comment: Order Date: 05/16/24Order Info: 4548-4 - A1C Result Comment: Norm al < 5.7 % Prediabetic 5.7 - 6.4 % Diabetic >or= 6.5 % Please note range changes. Performed By: #### L 501.9985, L500.4050, L501.9520, L506.0400, L100.0100, L500.4100 ####[facility] [address] [place], [address] CBC W/Diff, Automatedon 02-0 7-2024 Absolute Lymph 1.01 X10 3/uL Normal 0.83-4.51 [facility] Comment on above: Order Comment: Order Date: 05/16/24Order Info: 0184-1 - CBCD Performed By: #### L 501.9985, L500.4050, L501.9520, L506.0400, L100.0100, L500.4100 ####[facility] [address] [place], [address] Absolute Neut 14.3 X10 3/uL High 2.0-7.7 [facility] Comment on above: Order Comment: Order Date: 05/16/24Order Info: 0184-1 - CBCD Performed By: #### L 501.9985, L500.4050, L501.9520, L506.0400, L100.0100, L500.4100 ####[facility] [address] [place], [address] Basophils/100 WBC (Bld) 0.1 % Normal 0-1 [facility] Comment on above: Order Comment: Order Date: 05/16/24Order Info: 0184-1 - CBCD Performed By: #### L 501.9985, L500.4050, L501.9520, L506.0400, L100.0100, L500.4100 ####[facility] [address] [place], [address] Eosinophils/100 WBC (Bld) 0.0 % Normal 0-5 [facility] Comment on above: Order Comment: Order Date: 05/16/24Order Info: 018-1 - CBCD Performed By: #### L 501.9985, L500.4050, L501.9520, L506.0400, L100.0100, L500.4100 ####[facility] [address] [place], [address] Erythrocyte distribution width (RBC) [Ratio] 13.4 % Normal 11.6-14.6 [facility] Comment on above: Order Comment: Order Date: 05/16/24Order Info: 018-1 - CBCD Performed By: #### L 501.9985, L500.4050, L501.9520, L506.0400, L100.0100, L500.4100 ####[facility] [address] [place], [place], [phone](447) Hematocrit (Bld) [Volume fraction] 40.6 % Normal 40-54 [facility] Comment on above: Order Comment: Order Date: 05/16/24Order Info: 018- - CBCD Performed By: #### L 501.9985, L500.4050, L501.9520, L506.0400, L100.0100, L500.4100 ####[facility] [address] [place], [address] Hemoglobin (Bld) [Mass/Vol] 14.3 g/dL Normal 13.0-16.5 [facility] Comment on above: Order Comment: Order Date: 05/16/24Order Info: 018-1 - CBCD Performed By: #### L 501.9985, L500.4050, L501.9520, L506.0400, L100.0100, L500.4100 ####[facility] [address] [place], [address] IG% 0.500 Normal 0.0-0.9 [facility] Comment on above: Order Comment: Order Date: 05/16/24Order Info: 183- - CBCD Result Comment: IG% - Immature Granulocytes (promyelocytes, myelocytes and metamyelocytes) > 1% indicates that a LEFT SHIFT is Present. Performed By: #### L 501.9985, L500.4050, L501.9520, L506.0400, L100.0100, L500.4100 ####[facility] [address] [place], [address] Lymphocytes/100 WBC (Bld) 6.3 % Low 19-41 [facility] Comment on above: Order Comment: Order Date: 05/16/24Order Info: 01810-28 - CBCD Performed By: #### L 501.9985, L500.4050, L501.9520, L506.0400, L100.0100, L500.4100 ####[facility] [address] [place], [address] MCH (RBC) [Entitic mass] 32.6 pg High 27.0-32.0 [facility] Comment on above: Order Comment: Order Date: 05/16/24Order Info: 01810-28 - CBCD Performed By: #### L 501.9985, L500.4050, L501.9520, L506.0400, L100.0100, L500.4100 ####[facility] [address] [place], [address] MCHC (RBC) [Mass/Vol] 35.2 g/dL Normal 32-36 [facility] Comment on above: Order Comment: Order Date: 05/16/24Order Info: 018- - CBCD Performed By: #### L 501.9985, L500.4050, L501.9520, L506.0400, L100.0100, L500.4100 ####[facility] [address] [place], [address] MCV (RBC) [Entitic vol] 92.7 fL Normal 80-94 [facility] Comment on above: Order Comment: Order Date: 05/16/24Order Info: 018-1 - CBCD Performed By: #### L 501.9985, L500.4050, L501.9520, L506.0400, L100.0100, L500.4100 ####[facility] [address] [place], [address] Monocytes/100 WBC (Bld) 3.8 % Normal 0-10 [facility] Comment on above: Order Comment: Order Date: 05/16/24Order Info: 018- - CBCD Performed By: #### L 501.9985, L500.4050, L501.9520, L506.0400, L100.0100, L500.4100 ####[facility] [address] [place], [address] Neutrophils/100 WBC (Bld) 89.3 % High 47-70 [facility] Comment on above: Order Comment: Order Date: 05/16/24Order Info: 018- - CBCD Performed By: #### L 501.9985, L500.4050, L501.9520, L506.0400, L100.0100, L500.4100 ####[facility] [address] [place], [address] Nucleated RBC (Bld) [#/Vol] 0 10*3/uL Normal 0-5 [facility] Comment on above: Order Comment: Order Date: 05/16/24Order Info: 018-1 - CBCD Performed By: #### L 501.9985, L500.4050, L501.9520, L506.0400, L100.0100, L500.4100 ####[facility] [address] [place], [address] Platelet mean volume (Bld) [Entitic vol] 10.2 fL Normal 6.2-12.0 [facility] Comment on above: Order Comment: Order Date: 05/16/24Order Info: 018-1 - CBCD Performed By: #### L 501.9985, L500.4050, L501.9520, L506.0400, L100.0100, L500.4100 ####[facility] [address] [place], [address] Platelets (Bld) [#/Vol] 248 10*3/uL Normal 150-450 [facility] Comment on above: Order Comment: Order Date: 05/16/24Order Info: 018-1 - CBCD Performed By: #### L 501.9985, L500.4050, L501.9520, L506.0400, L100.0100, L500.4100 ####[facility] [address] [place], [address] RBC (Bld) [#/Vol] 4.38 10*6/uL Low 4.6-6.2 [facility] Comment on above: Order Comment: Order Date: 05/16/24Order Info: 018-1 - CBCD Performed By: #### L 501.9985, L500.4050, L501.9520, L506.0400, L100.0100, L500.4100 ####[facility] [address] [place], [address] RDW SD 45.5 fl High 35.1-43.9 [facility] Comment on above: Order Comment: Order Date: 05/16/24Order Info: 0184-1 - CBCD Performed By: #### L 501.9985, L500.4050, L501.9520, L506.0400, L100.0100, L500.4100 ####[facility] [address] [place], [address] WBC (Bld) [#/Vol] 16.0 10*3/uL High 4.4-11.0 [facility] Comment on above: Order Comment: Order Date: 05/16/24Order Info: 0184-1 - CBCD Performed By: #### L 501.9985, L500.4050, L501.9520, L506.0400, L100.0100, L500.4100 ####[facility] [address] [place], [address] Comprehensive Metabolic Prof ilon 09-05-2024 Albumin [Mass/Vol] 3.6 g/dL Normal 3.2-5.0 [facility] Comment on above: Order Comment: Order Date: 05/16/24Order Info: 0786-1 - CMPOrder Info: [id number] - LIPIDOrder Info: [id number] - TSHOrder Info: 302-7 - T4F Performed By: #### L 501.9985, L500.4050, L501.9520, L506.0400, L100.0100, L500.4100 ####[facility] [address] [place], [address] Albumin/Globulin [Mass ratio] 0.9 {ratio} Normal 0.9-2.4 [facility] Comment on above: Order Comment: Order Date: 05/16/24Order Info: 0786-1 - CMPOrder Info: [id number] - LIPIDOrder Info: [id number] - TSHOrder Info: 302-7 - T4F Performed By: #### L 501.9985, L500.4050, L501.9520, L506.0400, L100.0100, L500.4100 ####[facility] [address] [place], [address] ALK P 91 U/L Normal 45-117 [facility] Comment on above: Order Comment: Order Date: 05/16/24Order Info: 0786-1 - CMPOrder Info: [id number] - LIPIDOrder Info: [id number] - TSHOrder Info: 302-7 - T4F Performed By: #### L 501.9985, L500.4050, L501.9520, L506.0400, L100.0100, L500.4100 ####[facility] [address] [place], [place], [id number] ALT [Catalytic activity/Vol] 25 U/L Normal 16-61 [facility] Comment on above: Order Comment: Order Date: 05/16/24Order Info: 0786-1 - CMPOrder Info: [id number] - LIPIDOrder Info: [id number] - TSHOrder Info: 3024-7 - T4F Performed By: #### L 501.9985, L500.4050, L501.9520, L506.0400, L100.0100, L500.4100 ####[facility] [address] [place], [place], [id number] AST [Catalytic activity/Vol] 20 U/L Normal 15-37 [facility] Comment on above: Order Comment: Order Date: 05/16/24Order Info: 86-1 - CMPOrder Info: [id number] - LIPIDOrder Info: 63 - TSHOrder Info: 3024-7 - T4F Performed By: #### L 501.9985, L500.4050, L501.9520, L506.0400, L100.0100, L500.4100 ####[facility] [address] [place], [place], [address] Bilirubin [Mass/Vol] 0.50 mg/dL Normal 0.20-1.00 [facility] Comment on above: Order Comment: Order Date: 05/16/24Order Info: 0786-1 - CMPOrder Info: [id number] - LIPIDOrder Info: [id number] - TSHOrder Info: 3024-7 - T4F Result Comment: For patients on eltrombopag therapy, use of Dimension [place] TBIL is not recommended. Performed By: #### L 501.9985, L500.4050, L501.9520, L506.0400, L100.0100, L500.4100 ####[facility] [address] [place], [address] BUN/CRE 31.7 RATIO High 10-20 [facility] Comment on above: Order Comment: Order Date: 05/16/24Order Info: 0786-1 - CMPOrder Info: [id number] - LIPIDOrder Info: [id number] - TSHOrder Info: 3024-7 - T4F Performed By: #### L 501.9985, L500.4050, L501.9520, L506.0400, L100.0100, L500.4100 ####[facility] [address] [place], [address] CA,Total 9.3 mg/dL Normal 8.5-10.1 [facility] Comment on above: Order Comment: Order Date: 05/16/24Order Info: 785- - CMPOrder Info: [id number] - LIPIDOrder Info: 6-3 - TSHOrder Info: 3024-7 - T4F Performed By: #### L 501.9985, L500.4050, L501.9520, L506.0400, L100.0100, L500.4100 ####[facility] [address] [place], [address] Chloride [Moles/Vol] 103 mmol/L Normal 98-107 [facility] Comment on above: Order Comment: Order Date: 05/16/24Order Info: 07- - CMPOrder Info: [id number] - LIPIDOrder Info: [id number] - TSHOrder Info: 3024-7 - T4F Performed By: #### L 501.9985, L500.4050, L501.9520, L506.0400, L100.0100, L500.4100 ####[facility] [address] [place], [address] CO2 [Moles/Vol] 28.0 mmol/L Normal 21.0-32.0 [facility] Comment on above: Order Comment: Order Date: 05/16/24Order Info: 0786-1 - CMPOrder Info: [id number] - LIPIDOrder Info: 3 - TSHOrder Info: 7 - T4F Performed By: #### L 501.9985, L500.4050, L501.9520, L506.0400, L100.0100, L500.4100 ####[facility] [address] [place], [address] Creatinine [Mass/Vol] 1.42 mg/dL High 0.70-1.30 [facility] Comment on above: Order Comment: Order Date: 05/16/24Order Info: 785- - CMPOrder Info: [id number] - LIPIDOrder Info: [id number] - TSHOrder Info: 7 - T4F Result Comment: The validity of the calculated GFR GFRAA in patients over 70 years has not been determined. Clinical correlation is essential. Performed By: #### L 501.9985, L500.4050, L501.9520, L506.0400, L100.0100, L500.4100 ####[facility] [address] [place], [address] EST GFR - AA 62 mL/min Normal >60 [facility] Comment on above: Order Comment: Order Date: 05/16/24Order Info: 785-1 - CMPOrder Info: [id number] - LIPIDOrder Info: [id number] - TSHOrder Info: 7 - T4F Result Comment: Afri can Sudanese GFR Calc Performed By: #### L 501.9985, L500.4050, L501.9520, L506.0400, L100.0100, L500.4100 ####[facility] [address] [place], [address] GAP 7 Normal 5-15 [facility] Comment on above: Order Comment: Order Date: 05/16/24Order Info: 86-1 - CMPOrder Info: [id number] - LIPIDOrder Info: [id number] - TSHOrder Info: 3024-01 - T4F Performed By: #### L 501.9985, L500.4050, L501.9520, L506.0400, L100.0100, L500.4100 ####[facility] [address] [place], [address] GFR/1.73 sq M.predicted among non-blacks MDRD (S/P/Bld) [Vol rate/Area] 51 mL/min/{1.73_m2} Low >60 [facility] Comment on above: Order Comment: Order Date: 05/16/24Order Info: 785- - CMPOrder Info: [id number] - LIPIDOrder Info: [id number] - TSHOrder Info: 3024-01 - T4F Result Comment: Non- GFR Calc Performed By: #### L 501.9985, L500.4050, L501.9520, L506.0400, L100.0100, L500.4100 ####[facility] [address] [place], [address] Globulin (S) [Mass/Vol] 4.0 g/dL Normal 2.2-4.2 [facility] Comment on above: Order Comment: Order Date: 05/16/24Order Info: [id number] - CMPOrder Info: [id number] - LIPIDOrder Info: 3 - TSHOrder Info: 7 - T4F Performed By: #### L 501.9985, L500.4050, L501.9520, L506.0400, L100.0100, L500.4100 ####[facility] [address] [place], [address] Glucose [Mass/Vol] 181 mg/dL High 74-106 [facility] Comment on above: Order Comment: Order Date: 05/16/24Order Info: 785-07 - CMPOrder Info: [id number] - LIPIDOrder Info: 3 - TSHOrder Info: 7 - T4F Result Comment: Fast ing Glucose result greater than or equal to 126 mg/dL suggests DIABETES MELLITUS per A.D.A. criteria. Performed By: #### L 501.9985, L500.4050, L501.9520, L506.0400, L100.0100, L500.4100 ####[facility] [address] [place], [address] Potassium [Moles/Vol] 3.7 mmol/L Normal 3.5-5.1 [facility] Comment on above: Order Comment: Order Date: 05/16/24Order Info: 86-1 - CMPOrder Info: [id number] - LIPIDOrder Info: 3 - TSHOrder Info: 7 - T4F Performed By: #### L 501.9985, L500.4050, L501.9520, L506.0400, L100.0100, L500.4100 ####[facility] [address] [place], [address] Sodium [Moles/Vol] 138 mmol/L Normal 136-145 [facility] Comment on above: Order Comment: Order Date: 05/16/24Order Info: [id number] - CMPOrder Info: [id number] - LIPIDOrder Info: 3 - TSHOrder Info: 7 - T4F Performed By: #### L 501.9985, L500.4050, L501.9520, L506.0400, L100.0100, L500.4100 ####[facility] [address] [place], [address] T PROT 7.6 g/dL Normal 6.4-8.2 [facility] Comment on above: Order Comment: Order Date: 05/16/24Order Info: 785-1 - CMPOrder Info: [id number] - LIPIDOrder Info: 3 - TSHOrder Info: [id number] - T4F Performed By: #### L 501.9985, L500.4050, L501.9520, L506.0400, L100.0100, L500.4100 ####[facility] [address] [place], [place], [address] Urea nitrogen [Mass/Vol] 45 mg/dL High 02-13 [facility] Comment on above: Order Comment: Order Date: 05/16/24Order Info: 86-1 - CMPOrder Info: [id number] - LIPIDOrder Info: [id number] - TSHOrder Info: 3027 - T4F Performed By: #### L 501.9985, L500.4050, L501.9520, L506.0400, L100.0100, L500.4100 ####[facility] [address] [place], [place], [address] Lipid Profileon 09-05-2024 Cholesterol [Mass/Vol] 138 mg/dL Normal 200 [facility] Comment on above: Order Comment: Order Date: 05/16/24Order Info: 785-07 - CMPOrder Info: [id number] - LIPIDOrder Info: 3 - TSHOrder Info: [id number] - T4F Result Comment: <200 mg/dL Desirable 200-240 mg/dL Borderline >240 mg/dL High Risk Performed By: #### L 501.9985, L500.4050, L501.9520, L506.0400, L100.0100, L500.4100 ####[facility] [address] [place], [place], [address] Cholesterol in HDL [Mass/Vol] 74 mg/dL Normal [facility] Comment on above: Order Comment: Order Date: 05/16/24Order Info: 785-1 - CMPOrder Info: [id number] - LIPIDOrder Info: 63 - TSHOrder Info: [id number] - T4F Result Comment: The drugs N-Acetylcysteine and Metamizole may falsely depress this assay. Reference Range HDL <40 mg/dL Low HDL Cholesterol HDL >or= 60 mg/dL High HDL Cholesterol Performed By: #### L 501.9985, L500.4050, L501.9520, L506.0400, L100.0100, L500.4100 ####[facility] [address] [place], [address] Cholesterol in LDL [Mass/Vol] 50 mg/dL Normal 0-130 [facility] Comment on above: Order Comment: Order Date: 05/16/24Order Info: [id number] - CMPOrder Info: [id number] - LIPIDOrder Info: [id number] - TSHOrder Info: 3024-7 - T4F Performed By: #### L 501.9985, L500.4050, L501.9520, L506.0400, L100.0100, L500.4100 ####[facility] [address] [place], [address] Cholesterol in VLDL [Mass/Vol] 14 mg/dL Normal 5-40 [facility] Comment on above: Order Comment: Order Date: 05/16/24Order Info: 785-1 - CMPOrder Info: [id number] - LIPIDOrder Info: 63 - TSHOrder Info: 3024-7 - T4F Performed By: #### L 501.9985, L500.4050, L501.9520, L506.0400, L100.0100, L500.4100 ####[facility] [address] [place], [address] Triglyceride [Mass/Vol] 69 mg/dL Normal [facility] Comment on above: Order Comment: Order Date: 05/16/24Order Info: 07- - CMPOrder Info: [id number] - LIPIDOrder Info: 6-3 - TSHOrder Info: [id number] - T4F Result Comment: The drugs N-Acetylcysteine and Metamizole may falsely depress this assay. Serum Triglycerides Reference Interval Normal <150 mg/dL Borderline high 150 - 199 mg/dL High 200 - 499 mg/dL Very High > or = 500 mg/dL Performed By: #### L 501.9985, L500.4050, L501.9520, L506.0400, L100.0100, L500.4100 ####[facility] [address] [place], [address] T4 Free Directon 09-05-2024 T4 FREE DIRECT 1.20 ng/dL Normal 0.76-1.46 [facility] Comment on above: Order Comment: Order Date: 05/16/24Order Info: 07-1 - CMPOrder Info: [id number] - LIPIDOrder Info: [id number] - TSHOrder Info: 3024-7 - T4F Performed By: #### L 501.9985, L500.4050, L501.9520, L506.0400, L100.0100, L500.4100 ####[facility] [address] [place], [address] Thyroid Stim Hormone (TSH)on 09-05-2024 TSH 0.553 uIU/mL Normal 0.358-3.740 [facility] Comment on above: Order Comment: Order Date: 05/16/24Order Info: [id number] - CMPOrder Info: [id number] - LIPIDOrder Info: 6-3 - TSHOrder Info: [id number] - T4F Performed By: #### L 501.9985, L500.4050, L501.9520, L506.0400, L100.0100, L500.4100 ####[facility] [address] [place], [address] Stress Reporton 07-07-2024 Stress Report [facility] [address] [place] [address] MR#: [id number] Acct: [id number] Name: MESSI VILLA Rep #: [id number] : 1945 79 From: Edd Berman MD [...] MD Date Dictated: 07/07/241629 Date Transcribed: 07/07/241629 Finisher Operator: CO Signed Normal [facility] Mere 06-25-2024 GISSELLE Telephone (DMFN) MESSI VILLA ([id number]) 1945 M Date Time Provider Department 06/25/24 KYLAH DIMAS DMFPMN During your visit today, we recorded the following information about you: Sue Nava 06/25/2024 1:32 PM Signed June 25, 2024 Dear Messi Villa, Thank you for your request. Please call to confirm cancellation request, next availability for reschedule is possibly and not guaranteed NOVEMBER/2024 Please call [phone] Thank you for choosing [facility] for your healthcare. Sincerely, Your Care [...] Status:Closed by SUE NAVA on 06/25/24 Normal [facility] Cardiology Visit Reporton Cardiology Visit Report [facility] [address] [place], [place] [address] OFFICE VISIT Date of Service: 06/13/24 MR#: [id number] Acct: [id number] Name: MESSI VILLA Rep #: [id number] : 1945 Provider: Dr. Edd Berman MD Age/Sex: 79/M [place] [facility] [place] Status: Signed HPI HPI History of [...] again. He has been seen by an autotransfusionist and he is on antihistamine. 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 Normal [facility] CNOVon 06-11-2024 CNOV Office Visit (UROLBE ) MESSI VILLA ([id number]) 1945 M Date Time Provider Department 06/11/24 [...] which included preparing to see the patient, [id number] patient care, completing clinical documentation, performing a [...] and oriented (more content not included)... Normal [facility] No Panel InformationOrdered By: Nyla Sapp on 06-11-2024 [facility] UA DIP, URINE (POC)on 2023 BILIRUBIN UA (POCT) Negative Negative [facility] CLARITY UA (POCT) Clear [facility] COLOR UA (POCT) Yellow [facility] GLUCOSE UA (POCT) Negative Negative mg/dL [facility] Hemoglobin Ql (U) Negative Negative [facility] Interpretation and review of laboratory results Abnormal [facility] KETONE UA (POCT) Negative Negative mg/dL [facility] LEUKOCYTES UA (POCT) Trace Abnormal Negative [facility] NITRITE UA (POCT) Negative Negative [facility] PH UA (POCT) 6.5 4.5 - 8.0 [facility] Protein Ql (U) Negative Negative mg/dL [facility] SPECIFIC GRAVITY UA (POCT) 1.015 1.005 - 1.030 [facility] UROBILINOGEN UA (POCT) 0.2 Rona l E.U./dL [facility] Location:[facility], [address] [place] [address], [address] [place] [address] POINT OF CARE URINE SEDIMENT B/OOrdered By : Nyla Sapp on 06-11-2024 BACTERIA, UR 0 Negative [facility] Casts LM.HPF (Urine sed) [#/Area] 0 /[HPF] Negative [facility] Leukocyte morphology finding Nom (Bld) [facility] Nucleated RBC Manual cnt (Unsp spec) [#] 0 [facility] Urine sediment comments LM Jorge (Urine sed) [facility] URINE SEDIMENT B/Oon 024 Microscopic performe d by CLARA Pratt , scribed by Nyla Sapp LPN [facility] CBC W/Diff, Automatedon 10- Absolute Lymph 1.23 X10 3/uL Normal 0.83-4.51 [facility] Comment on above: Order Comment: Order Date: 05/13/24 Order Info: 0786-1 - CMP Performed By: #### L [id number] #### [facility] [address] [place], [address] Absolute Neut 2.9 X10 3/uL Normal 2.0-7.7 [facility] Comment on above: Order Comment: Order Date: 05/13/24 Order Info: 0786-1 - CMP Performed By: #### L [id number] #### [facility] [address] [place], [address] Basophils/100 WBC (Bld) 0.8 % Normal 0-1 [facility] Comment on above: Order Comment: Order Date: 05/13/24 Order Info: 0786-1 - CMP Performed By: #### L [id number] #### [facility] [address] [place], [address] Eosinophils/100 WBC (Bld) 4.8 % Normal 0-5 [facility] Comment on above: Order Comment: Order Date: 05/13/24 Order Info: 0786-1 - CMP Performed By: #### L [id number] #### [facility] [address] [place], [address] Erythrocyte distribution width (RBC) [Ratio] 12.9 % Normal 11.6-14.6 [facility] Comment on above: Order Comment: Order Date: 05/13/24 Order Info: 0786-1 - CMP Performed By: #### L [id number] #### [facility] [address] [place], [address] Hematocrit (Bld) [Volume fraction] 42.1 % Normal 40-54 [facility] Comment on above: Order Comment: Order Date: 05/13/24 Order Info: 0786-1 - CMP Performed By: #### L [id number] #### [facility] [address] [place], [address] Hemoglobin (Bld) [Mass/Vol] 14.2 g/dL Normal 13.0-16.5 [facility] Comment on above: Order Comment: Order Date: 05/13/24 Order Info: 0786-1 - CMP Performed By: #### L [id number] #### [facility] [address] [place], [address] IG% 0.200 Normal 0.0-0.9 [facility] Comment on above: Order Comment: Order Date: 05/13/24 Order Info: 07-1 - CMP Result Comment: IG% - Immature Granulocytes (promyelocytes, myelocytes and metamyelocytes) > 1% indicates that a LEFT SHIFT is Present. Performed By: #### L [id number] #### [facility] [address] [place], [address] Lymphocytes/100 WBC (Bld) 24.4 % Normal 19-41 [facility] Comment on above: Order Comment: Order Date: 05/13/24 Order Info: 0786-1 - CMP Performed By: #### L [id number] #### [facility] [address] [place], [address] MCH (RBC) [Entitic mass] 32.1 pg High 27.0-32.0 [facility] Comment on above: Order Comment: Order Date: 05/13/24 Order Info: 0786-1 - CMP Performed By: #### L [id number] #### [facility] [address] [place], [address] MCHC (RBC) [Mass/Vol] 33.7 g/dL Normal 32-36 [facility] Comment on above: Order Comment: Order Date: 05/13/24 Order Info: 0786-1 - CMP Performed By: #### L [id number] #### [facility] [address] [place], [address] MCV (RBC) [Entitic vol] 95.0 fL High 80-94 [facility] Comment on above: Order Comment: Order Date: 05/13/24 Order Info: 0786-1 - CMP Performed By: #### L [id number] #### [facility] [address] [place], [address] Monocytes/100 WBC (Bld) 11.9 % High 0-10 [facility] Comment on above: Order Comment: Order Date: 05/13/24 Order Info: 0786-1 - CMP Performed By: #### L [id number] #### [facility] [address] [place], [address] Neutrophils/100 WBC (Bld) 57.9 % Normal 47-70 [facility] Comment on above: Order Comment: Order Date: 05/13/24 Order Info: 0786-1 - CMP Performed By: #### L [id number] #### [facility] [address] [place], [address] Nucleated RBC (Bld) [#/Vol] 0 10*3/uL Normal 0-5 [facility] Comment on above: Order Comment: Order Date: 05/13/24 Order Info: 0786-1 - CMP Performed By: #### L [id number] #### [facility] [address] [place], [address] Platelet mean volume (Bld) [Entitic vol] 10.5 fL Normal 6.2-12.0 [facility] Comment on above: Order Comment: Order Date: 05/13/24 Order Info: 0786-1 - CMP Performed By: #### L [id number] #### [facility] [address] [place], [address] Platelets (Bld) [#/Vol] 234 10*3/uL Normal 150-450 [facility] Comment on above: Order Comment: Order Date: 05/13/24 Order Info: 0786-1 - CMP Performed By: #### L [id number] #### [facility] [address] [place], [address] RBC (Bld) [#/Vol] 4.43 10*6/uL Low 4.6-6.2 [facility] Comment on above: Order Comment: Order Date: 05/13/24 Order Info: 0786-1 - CMP Performed By: #### L [id number] #### [facility] [address] [place], [address] RDW SD 45.1 fl High 35.1-43.9 [facility] Comment on above: Order Comment: Order Date: 05/13/24 Order Info: 0786-1 - CMP Performed By: #### L [id number] #### [facility] [address] [place], [address] WBC (Bld) [#/Vol] 5.0 10*3/uL Normal 4.4-11.0 [facility] Comment on above: Order Comment: Order Date: 05/13/24 Order Info: 0786-1 - CMP Performed By: #### L [id number] #### [facility] [address] [place], [address] Comprehensive Metabolic Prof ilon 05-14-2024 Albumin [Mass/Vol] 3.6 g/dL Normal 3.2-5.0 [facility] Comment on above: Order Comment: Order Date: 05/13/24 Order Info: 0786-1 - CMP Performed By: #### L [id number] #### [facility] [address] [place], [address] Albumin/Globulin [Mass ratio] 0.9 {ratio} Normal 0.9-2.4 [facility] Comment on above: Order Comment: Order Date: 05/13/24 Order Info: 0786-1 - CMP Performed By: #### L [id number] #### [facility] [address] [place], [address] ALK P 101 U/L Normal 45-117 [facility] Comment on above: Order Comment: Order Date: 05/13/24 Order Info: 0786-1 - CMP Performed By: #### L [id number] #### [facility] [address] [place], [address] ALT [Catalytic activity/Vol] 23 U/L Normal 16-61 [facility] Comment on above: Order Comment: Order Date: 05/13/24 Order Info: 0786-1 - CMP Performed By: #### L [id number] #### [facility] [address] [place], [address] AST [Catalytic activity/Vol] 23 U/L Normal 15-37 [facility] Comment on above: Order Comment: Order Date: 05/13/24 Order Info: 0786-1 - CMP Performed By: #### L [id number] #### [facility] [address] [place], [address] Bilirubin [Mass/Vol] 0.60 mg/dL Normal 0.20-1.00 [facility] Comment on above: Order Comment: Order Date: 05/13/24 Order Info: 0786-1 - CMP Result Comment: For patients on eltrombopag therapy, use of Dimension [place] TBIL is not recommended. Performed By: #### L [id number] #### [facility] [address] [place], [address] BUN/CRE 20.3 RATIO High 10-20 [facility] Comment on above: Order Comment: Order Date: 05/13/24 Order Info: 0786-1 - CMP Performed By: #### L [id number] #### [facility] [address] [place], [address] CA,Total 9.1 mg/dL Normal 8.5-10.1 [facility] Comment on above: Order Comment: Order Date: 05/13/24 Order Info: 0786-1 - CMP Performed By: #### L [id number] #### [facility] [address] [place], [address] Chloride [Moles/Vol] 103 mmol/L Normal 98-107 [facility] Comment on above: Order Comment: Order Date: 05/13/24 Order Info: 0786-1 - CMP Performed By: #### L [id number] #### [facility] [address] [place], [address] CO2 [Moles/Vol] 32.0 mmol/L Normal 21.0-32.0 [facility] Comment on above: Order Comment: Order Date: 05/13/24 Order Info: 07-1 - CMP Performed By: #### L [id number] #### [facility] [address] [place], [address] Creatinine [Mass/Vol] 1.23 mg/dL Normal 0.70-1.30 [facility] Comment on above: Order Comment: Order Date: 05/13/24 Order Info: 07-1 - CMP Result Comment: The validity of the calculated GFR GFRAA in patients over 70 years has not been determined. Clinical correlation is essential. Performed By: #### L [id number] #### [facility] [address] [place], [address] EST GFR - AA 73 mL/min Normal >60 [facility] Comment on above: Order Comment: Order Date: 05/13/24 Order Info: 0786-1 - CMP Result Comment: Afri can Sudanese GFR Calc Performed By: #### L [id number] #### [facility] [address] [place], [address] GAP 5 Normal 5-15 [facility] Comment on above: Order Comment: Order Date: 05/13/24 Order Info: 0786-1 - CMP Performed By: #### L [id number] #### [facility] [address] [place], [place], [address] GFR/1.73 sq M.predicted among non-blacks MDRD (S/P/Bld) [Vol rate/Area] 60 mL/min/{1.73_m2} Normal >60 [facility] Comment on above: Order Comment: Order Date: 05/13/24 Order Info: 0786-1 - CMP Result Comment: Non- GFR Calc Performed By: #### L [id number] #### [facility] [address] [place], [place], [address] [phone] Globulin (S) [Mass/Vol] 3.8 g/dL Normal 2.2-4.2 [facility] Comment on above: Order Comment: Order Date: 05/13/24 Order Info: 0786-1 - CMP Performed By: #### L [id number] #### [facility] [address] [place], [address] Glucose [Mass/Vol] 103 mg/dL Normal 74-106 [facility] Comment on above: Order Comment: Order Date: 05/13/24 Order Info: 0786-1 - CMP Result Comment: Fast ing Glucose result from 100 to 125 mg/dL suggests IMPAIRED HOMEOSTASIS per A.D.A. criteria. Performed By: #### L [id number] #### [facility] [address] [place], [place], [id number] Potassium [Moles/Vol] 3.4 mmol/L Low 3.5-5.1 [facility] Comment on above: Order Comment: Order Date: 05/13/24 Order Info: 0786-1 - CMP Performed By: #### L [id number] #### [facility] [address] [place], [address] Sodium [Moles/Vol] 140 mmol/L Normal 136-145 [facility] Comment on above: Order Comment: Order Date: 05/13/24 Order Info: 0786-1 - CMP Performed By: #### L [id number] #### [facility] [address] [place], [place], [address] T PROT 7.4 g/dL Normal 6.4-8.2 [facility] Comment on above: Order Comment: Order Date: 05/13/24 Order Info: 0786-1 - CMP Performed By: #### L [id number] #### [facility] [address] [place], [place], [address] Urea nitrogen [Mass/Vol] 25 mg/dL High 7-18 [facility] Comment on above: Order Comment: Order Date: 05/13/24 Order Info: 0786-1 - CMP Performed By: #### L [id number] #### [facility] [address] [place], [place], [address] Hemoglobin A1con 05-14-2024 HbA1c (Bld) [Mass fraction] 5.8 % High 3.8-5.6 [facility] Comment on above: Order Comment: Order Date: 05/13/24 Order Info: 4548-4 - A1C Result Comment: Norm al < 5.7 % Prediabetic 5.7 - 6.4 % Diabetic >or= 6.5 % Please note range changes. Performed By: #### L 501.9985 #### [facility] [address] [place], [place], [address] Absolute lymphocyte countOrd ered By: Barrie Pike on 10-11-2023 Lymphocytes Auto (Unsp spec) [#/Vol] 1.05 10*3/uL 0.83-4.51 [facility] Automated lymphocyte count a s percentage of total leukocytesOrdered By: Barrie Pike on 10-11-2023 Lymphocytes/100 WBC Auto (Unsp spec) 14.3 % 19-41 [facility] Basophil percentageOrdered B y: Barrie Pike on 10-11-2023 Basophils/100 WBC (Bld) 0.3 % 0-1 [facility] Chloride [Moles/Vol] 100 mmol/L 98-107 [facility] Eosinophils/100 WBC (Bld) 3.5 % 0-5 [facility] Glucose [Mass/Vol] 157 mg/dL 74-106 [facility] Comment on above: Fasting Glucose resu lt greater than or equal to 126 mg/dL suggests DIABETES MELLITUS per A.D.A. criteria. Hemoglobin (Bld) [Mass/Vol] 14.6 g/dL 13.0-16.5 [facility] Monocytes/100 WBC (Bld) 11.1 % 0-10 [facility] Neutrophils (Bld) [#/Vol] 5.2 10*3/uL 2.0-7.7 [facility] Neutrophils/100 WBC (Bld) 70.7 % 47-70 [facility] Potassium [Moles/Vol] 3.7 mmol/L 3.5-5.1 [facility] Sodium [Moles/Vol] 138 mmol/L 136-145 [facility] WBC (Bld) [#/Vol] 7.4 10*3/uL 4.4-11.0 [facility] Determination of erythrocyte mean corpuscular volume (MCV)Ordered By: Barrie Pike on 10-11-2023 MCV (RBC) [Entitic vol] 96.9 fL 80-94 [facility] Erythrocyte distribution wid th ratioOrdered By: Barrie Pike on 10-11-2023 Erythrocyte distribution width (RBC) [Ratio] 12.8 % 11.6-14.6 [facility] Erythrocyte distribution wid th standard deviationOrdered By: Barrie Pike on 10-11-2023 Erythrocyte distribution width (RBC) [Entitic vol] 46.5 fL 35.1-43.9 [facility] Hematocrit Auto (Bld) [Volum e fraction]Ordered By: Barrie Pike on 10-11-2023 Hematocrit (Bld) [Volume fraction] 43.2 % 40-54 [facility] Immature granulocytes/100 WB C Auto (Bld)Ordered By: Barrie Pike on 10-11-2023 Immature granulocytes/100 WBC (Bld) 0.100 % 0.0-0.9 [facility] Comment on above: IG% - Immature Granu locytes (promyelocytes, myelocytes and metamyelocytes) > 1% indicates that a LEFT SHIFT is Present. Laboratory - Chemistry and C hemistry - challengeOrdered By: Barrie Pike on 10-11-2023 CO2 [Moles/Vol] 32.0 mmol/L 21.0-32.0 [facility] Urea nitrogen/Creatinine [Mass ratio] 17.8 mg/mg 10-20 [facility] - Hematology and Cell countsOrdered By: Barrie Pike on 10-11-2023 MCH (RBC) [Entitic mass] 32.7 pg 27.0-32.0 [facility] MCHC (RBC) [Mass/Vol] 33.8 g/dL 32-36 [facility] Nucleated RBC/100 WBC (Bld) [Ratio] 0 % 0-5 [facility] Platelet mean volume (Bld) [Entitic vol] 10.4 fL 6.2-12.0 [facility] Platelets (Bld) [#/Vol] 204 10*3/uL 150-450 [facility] No Panel InformationOrdered By: Barrie Pike on 10-11-2023 Estimated Creatinine Clearance Calc 51.59 ml/min [facility] Estimated GFR (MDRD) Amer 77 mL/min >60 [facility] Comment on above: GFR Calc Estimated GFR (MDRD) Non-Af Amer 63 mL/min >60 [facility] Comment on above: Non- GFR Calc RBC Auto (Bld) [#/Vol]Ordere d By: Barrie Pike on 10-11-2023 RBC (Bld) [#/Vol] 4.46 10*6/uL 4.6-6.2 [facility] Serum or plasma calcium dulce urement (mass/volume)Ordered By: Barrie Pike on 10-11-2023 Calcium [Mass/Vol] 9.1 mg/dL 8.5-10.1 [facility] Serum or plasma creatinine m easurement (mass/volume)Ordered By: Barrie Pike on 10-11-2023 Creatinine [Mass/Vol] 1.18 mg/dL 0.70-1.30 [facility] Comment on above: The validity of the calculated GFR & GFRAA in patients over 70 years has not been determined. Clinical correlation is essential. Serum or plasma urea nitroge n measurement (mass/volume)Ordered By: Barrie Pike on 10-11-2023 Urea nitrogen [Mass/Vol] 21 mg/dL 7-18 [facility] Streptococcus pyogenes rRNA detection in throat by DNA probeOrdered By: Barrie Pike on 10-11-2023 S. pyogenes rRNA Probe Ql (Throat) [facility] Thin prep Papanicolaou smear with manual screeningOrdered By: Barrie Pike on 10-11-2023 Thin prep Papanicolaou smear with manual screening 6 5-15 [facility] Absolute lymphocyte countOrd ered By: Moiz Mueller on 05-08-2023 Lymphocytes Auto (Unsp spec) [#/Vol] 1.46 10*3/uL 0.83-4.51 [facility] Basophil percentageOrdered B y: Moiz Mueller on 05-08-2023 Basophils/100 WBC (Bld) 0.8 % 0-1 [facility] Bilirubin [Mass/Vol] 0.80 mg/dL 0.20-1.00 [facility] Comment on above: For patients on eltr ombopag therapy, use of Dimension [place] TBIL is not recommended. Chloride [Moles/Vol] 103 mmol/L 98-107 [facility] Cholesterol [Mass/Vol] 136 mg/dL <200 [facility] Comment on above: <200 mg/dL Desirable 200-240 mg/dL Borderline >240 mg/dL High Risk Eosinophils/100 WBC (Bld) 2.8 % 0-5 [facility] Glucose [Mass/Vol] 108 mg/dL 74-106 [facility] Comment on above: Fasting Glucose resu lt from 100 to 125 mg/dL suggests IMPAIRED HOMEOSTASIS per A.D.A. criteria. Neutrophils (Bld) [#/Vol] 4.1 10*3/uL 2.0-7.7 [facility] Neutrophils/100 WBC (Bld) 63.9 % 47-70 [facility] Potassium [Moles/Vol] 3.5 mmol/L 3.5-5.1 [facility] Protein [Mass/Vol] 7.6 g/dL 6.4-8.2 [facility] Sodium [Moles/Vol] 139 mmol/L 136-145 [facility] Triglyceride [Mass/Vol] 73 mg/dL <199 [facility] Comment on above: The drugs N-Acetylcy steine and Metamizole may falsely depress this assay.Serum Triglycerides Reference Interval Normal <150 mg/dL Borderline high 150 - 199 mg/dL High 200 - 499 mg/dL Very High > or = 500 mg/dL WBC (Bld) [#/Vol] 6.4 10*3/uL 4.4-11.0 [facility] Blood erythrocytes count (nu mber/volume)Ordered By: Moiz Mueller on 05-08-2023 RBC (Bld) [#/Vol] 4.69 10*6/uL 4.6-6.2 [facility] Blood hemoglobin measurement (mass/volume)Ordered By: Moiz Mueller on 05-08-2023 Hemoglobin (Bld) [Mass/Vol] 15.3 g/dL 13.0-16.5 [facility] Blood lymphocytes/100 leukoc ytesOrdered By: Moiz Mueller on 05-08-2023 Lymphocytes/100 WBC (Bld) 22.8 % 19-41 [facility] Blood monocytes/100 leukocyt esOrdered By: Moiz Mueller on 05-08-2023 Monocytes/100 WBC (Bld) 9.4 % 0-10 [facility] Blood platelet mean volumeOr dered By: Moiz Mueller on 05-08-2023 Platelet mean volume (Bld) [Entitic vol] 10.3 fL 6.2-12.0 [facility] Determination of erythrocyte mean corpuscular volume (MCV)Ordered By: Moiz Mueller on 05-08-2023 MCV (RBC) [Entitic vol] 96.6 fL 80-94 [facility] Hematocrit Auto (Bld) [Volum e fraction]Ordered By: Moiz Mueller on 05-08-2023 Hematocrit (Bld) [Volume fraction] 45.3 % 40-54 [facility] - Chemistry and C hemistry - challengeOrdered By: Moiz Mueller on 05-08-2023 ALP [Catalytic activity/Vol] 91 U/L 45-117 [facility] ALT [Catalytic activity/Vol] 33 U/L 16-61 [facility] CO2 [Moles/Vol] 32.0 mmol/L 21.0-32.0 [facility] Globulin (S) [Mass/Vol] 3.9 g/dL 2.2-4.2 [facility] Urea nitrogen/Creatinine [Mass ratio] 19.7 mg/mg 10-20 [facility] - Hematology and Cell countsOrdered By: Moiz Mueller on 05-08-2023 Erythrocyte distribution width (RBC) [Entitic vol] 46.5 fL 35.1-43.9 [facility] Erythrocyte distribution width (RBC) [Ratio] 13.2 % 11.6-14.6 [facility] Immature granulocytes/100 WBC (Bld) 0.300 % 0.0-0.9 [facility] Comment on above: IG% - Immature Granu locytes (promyelocytes, myelocytes and metamyelocytes) > 1% indicates that a LEFT SHIFT is Present. MCH (RBC) [Entitic mass] 32.6 pg 27.0-32.0 [facility] Nucleated RBC/100 WBC (Bld) [Ratio] 0 % 0-5 [facility] MCHC Auto (RBC) [Mass/Vol]Or dered By: Moiz Mueller on 05-08-2023 MCHC (RBC) [Mass/Vol] 33.8 g/dL 32-36 [facility] No Panel InformationOrdered By: Moiz Mueller on 05-08-2023 Estimated GFR (MDRD) Amer 78 mL/min >60 [facility] Comment on above: GFR Calc Estimated GFR (MDRD) Non-Af Amer 64 mL/min >60 [facility] Comment on above: Non- GFR Calc Thyroid Stimulating Hormone (TSH) 2.51 uIU/mL 0.358-3.74 [facility] Vitamin D 25-Hydroxy 41.9 ng/mL [facility] Comment on above: Vitamin D 25(OH) Sta tus Range Deficiency <20 ng/mL (50nmol/L) Insufficiency 20 - 30 ng/mL (50 - 75 nmol/L) Sufficiency 30 - 100 ng/mL (75 - 250 nmol/L) Toxicity >100 ng/mL (>250 nmol/L) Platelets bldOrdered By: Casey Mueller on 05-08-2023 Platelets (Bld) [#/Vol] 247 10*3/uL 150-450 [facility] Serum or plasma albumin dulce urement (mass/volume)Ordered By: Moiz Mueller on 05-08-2023 Albumin [Mass/Vol] 3.7 g/dL 3.2-5.0 [facility] Serum or plasma albumin/glob ulin mass ratioOrdered By: Moiz Mueller on 05-08-2023 Albumin/Globulin [Mass ratio] 0.9 {ratio} 0.9-2.4 [facility] Serum or plasma calcium dulce urement (mass/volume)Ordered By: Moiz Mueller on 05-08-2023 Calcium [Mass/Vol] 9.1 mg/dL 8.5-10.1 [facility] Serum or plasma cholesterol in HDL measurement (mass/volume)Ordered By: Moiz Mueller on 05-08-2023 Cholesterol in HDL [Mass/Vol] 63 mg/dL >40 [facility] Comment on above: The drugs N-Acetylcy steine and Metamizole may falsely depress this assay. Reference Range HDL <40 mg/dL Low HDL Cholesterol HDL >or= 60 mg/dL High HDL Cholesterol Serum or plasma cholesterol in VLDL measurement (mass/volume)Ordered By: Moiz Mueller on 05-08-2023 Cholesterol in VLDL [Mass/Vol] 15 mg/dL 5-40 [facility] Serum or plasma creatinine m easurement (mass/volume)Ordered By: Moiz Mueller on 05-08-2023 Creatinine [Mass/Vol] 1.17 mg/dL 0.70-1.30 [facility] Comment on above: The validity of the calculated GFR & GFRAA in patients over 70 years has not been determined. Clinical correlation is essential. Serum or plasma low density lipoprotein (LDL) cholesterol measurement (mass/volume)Ordered By: Moiz Mueller on 05-08-2023 Cholesterol in LDL [Mass/Vol] 58 mg/dL 0-130 [facility] Serum or plasma urea nitroge n measurement (mass/volume)Ordered By: Moiz Mueller on 05-08-2023 Urea nitrogen [Mass/Vol] 23 mg/dL 7-18 [facility] Thin prep Papanicolaou smear with manual screeningOrdered By: Moiz Mueller on 05-08-2023 Thin prep Papanicolaou smear with manual screening 21 U/L 15-37 [facility] Thin prep Papanicolaou smear with manual screening 4 5-15 [facility] Whole blood hemoglobin A1c/t otal hemoglobin ratio (mass fraction)Ordered By: Moiz Mueller on 05-08-2023 HbA1c (Bld) [Mass fraction] 5.6 % 3.8-5.6 [facility] Comment on above: Normal < 5.7 % Predi abetic 5.7 - 6.4 % Diabetic >or= 6.5 % Please note range changes. No Panel InformationOrdered By: Moiz Mueller on 01-19-2023 Prostate Specific Antigen Screen 2.10 ng/mL 0.00-4.00 [facility] Comment on above: This test was perfor med using the TPSA assay method for [employer] chemistry system. Values obtained with differentassay methods cannot be used interchangably.When changing PSA assays in the course of monitoring apatient, additional sequential testing should be carriedout to confirm baseline values. Laboratory - Chemistry and C hemistry - challengeOrdered By: Dr. Mueller on 10-16-2022 Free T4 [Mass/Vol] 1.01 ng/dL 0.76-1.46 [facility] No Panel InformationOrdered By: Dr. Mueller on 10-16-2022 Thyroid Stimulating Hormone (TSH) 5.64 uIU/mL 0.358-3.74 [facility] Vitamin D 25-Hydroxy 50.5 ng/mL [facility] Comment on above: Vitamin D 25(OH) Sta tus Range Deficiency <20 ng/mL (50nmol/L) Insufficiency 20 - 30 ng/mL (50 - 75 nmol/L) Sufficiency 30 - 100 ng/mL (75 - 250 nmol/L) Toxicity >100 ng/mL (>250 nmol/L) Whole blood hemoglobin A1c/t otal hemoglobin ratio (mass fraction)Ordered By: Dr. Mueller on 10-16-2022 HbA1c (Bld) [Mass fraction] 5.7 % 3.8-5.6 [facility] Comment on above: Normal < 5.7 % Predi abetic 5.7 - 6.4 % Diabetic >or= 6.5 % Please note range changes. Absolute lymphocyte countOrd ered By: Dr. Mueller on 07-14-2022 Lymphocytes Auto (Unsp spec) [#/Vol] 1.70 10*3/uL 0.83-4.51 [facility] Basophil percentageOrdered B y: Dr. Mueller on 07-14-2022 Basophils/100 WBC (Bld) 0.8 % 0-1 [facility] Bilirubin [Mass/Vol] 0.60 mg/dL 0.20-1.00 [facility] Comment on above: For patients on eltr ombopag therapy, use of Dimension [place] TBIL is not recommended. Chloride [Moles/Vol] 106 mmol/L 98-107 [facility] Cholesterol [Mass/Vol] 125 mg/dL <200 [facility] Comment on above: <200 mg/dL Desirable 200-240 mg/dL Borderline >240 mg/dL High Risk Eosinophils/100 WBC (Bld) 3.9 % 0-5 [facility] Glucose [Mass/Vol] 103 mg/dL 74-106 [facility] Comment on above: Fasting Glucose resu lt from 100 to 125 mg/dL suggests IMPAIRED HOMEOSTASIS per A.D.A. criteria. Neutrophils (Bld) [#/Vol] 2.7 10*3/uL 2.0-7.7 [facility] Neutrophils/100 WBC (Bld) 52.3 % 47-70 [facility] Potassium [Moles/Vol] 3.8 mmol/L 3.5-5.1 [facility] Protein [Mass/Vol] 7.4 g/dL 6.4-8.2 [facility] Sodium [Moles/Vol] 140 mmol/L 136-145 [facility] Triglyceride [Mass/Vol] 65 mg/dL <199 [facility] Comment on above: The drugs N-Acetylcy steine and Metamizole may falsely depress this assay.Serum Triglycerides Reference Interval Normal <150 mg/dL Borderline high 150 - 199 mg/dL High 200 - 499 mg/dL Very High > or = 500 mg/dL WBC (Bld) [#/Vol] 5.2 10*3/uL 4.4-11.0 [facility] Blood erythrocytes count (nu mber/volume)Ordered By: Dr. Mueller on 07-14-2022 RBC (Bld) [#/Vol] 4.46 10*6/uL 4.6-6.2 [facility] Blood hemoglobin measurement (mass/volume)Ordered By: Dr. Mueller on 07-14-2022 Hemoglobin (Bld) [Mass/Vol] 14.8 g/dL 13.0-16.5 [facility] Blood lymphocytes/100 leukoc ytesOrdered By: Dr. Mueller on 07-14-2022 Lymphocytes/100 WBC (Bld) 32.9 % 19-41 [facility] Blood monocytes/100 leukocyt esOrdered By: Dr. Mueller on 07-14-2022 Monocytes/100 WBC (Bld) 9.9 % 0-10 [facility] Blood platelet mean volumeOr dered By: Dr. Mueller on 07-14-2022 Platelet mean volume (Bld) [Entitic vol] 10.0 fL 6.2-12.0 [facility] Determination of erythrocyte mean corpuscular volume (MCV)Ordered By: Dr. Mueller on 07-14-2022 MCV (RBC) [Entitic vol] 94.4 fL 80-94 [facility] Hematocrit Auto (Bld) [Volum e fraction]Ordered By: Dr. Mueller on 07-14-2022 Hematocrit (Bld) [Volume fraction] 42.1 % 40-54 [facility] Laboratory - Chemistry and C hemistry - challengeOrdered By: Dr. Mueller on 07-14-2022 ALP [Catalytic activity/Vol] 80 U/L 45-117 [facility] ALT [Catalytic activity/Vol] 24 U/L 16-61 [facility] CO2 [Moles/Vol] 31.0 mmol/L 21.0-32.0 [facility] Free T4 [Mass/Vol] 1.07 ng/dL 0.76-1.46 [facility] Globulin (S) [Mass/Vol] 3.9 g/dL 2.2-4.2 [facility] Urea nitrogen/Creatinine [Mass ratio] 20.9 mg/mg 10-20 [facility] Laboratory - Hematology and Cell countsOrdered By: Dr. Mueller on 07-14-2022 Erythrocyte distribution width (RBC) [Entitic vol] 44.5 fL 35.1-43.9 [facility] Erythrocyte distribution width (RBC) [Ratio] 12.9 % 11.6-14.6 [facility] Immature granulocytes/100 WBC (Bld) 0.200 % 0.0-0.9 [facility] Comment on above: IG% - Immature Granu locytes (promyelocytes, myelocytes and metamyelocytes) > 1% indicates that a LEFT SHIFT is Present. MCH (RBC) [Entitic mass] 33.2 pg 27.0-32.0 [facility] Nucleated RBC/100 WBC (Bld) [Ratio] 0 % 0-5 [facility] MCHC Auto (RBC) [Mass/Vol]Or dered By: Dr. Mueller on 07-14-2022 MCHC (RBC) [Mass/Vol] 35.2 g/dL 32-36 [facility] No Panel InformationOrdered By: Dr. Mueller on 07-14-2022 Estimated GFR (MDRD) Amer 79 mL/min >60 [facility] Comment on above: GFR Calc Estimated GFR (MDRD) Non-Af Amer 66 mL/min >60 [facility] Comment on above: Non- GFR Calc Thyroid Stimulating Hormone (TSH) 3.77 uIU/mL 0.358-3.74 [facility] Vitamin D 25-Hydroxy 39.9 ng/mL [facility] Comment on above: Vitamin D 25(OH) Sta tus Range Deficiency <20 ng/mL (50nmol/L) Insufficiency 20 - 30 ng/mL (50 - 75 nmol/L) Sufficiency 30 - 100 ng/mL (75 - 250 nmol/L) Toxicity >100 ng/mL (>250 nmol/L) Platelets bldOrdered By: Dr. Mueller on 07-14-2022 Platelets (Bld) [#/Vol] 217 10*3/uL 150-450 [facility] Serum or plasma albumin dulce urement (mass/volume)Ordered By: Dr. Mueller on 07-14-2022 Albumin [Mass/Vol] 3.5 g/dL 3.2-5.0 [facility] Serum or plasma albumin/glob ulin mass ratioOrdered By: Dr. Mueller on 07-14-2022 Albumin/Globulin [Mass ratio] 0.9 {ratio} 0.9-2.4 [facility] Serum or plasma calcium dulce urement (mass/volume)Ordered By: Dr. Mueller on 07-14-2022 Calcium [Mass/Vol] 8.8 mg/dL 8.5-10.1 [facility] Serum or plasma cholesterol in HDL measurement (mass/volume)Ordered By: Dr. Mueller on 07-14-2022 Cholesterol in HDL [Mass/Vol] 56 mg/dL >40 [facility] Comment on above: The drugs N-Acetylcy steine and Metamizole may falsely depress this assay. Reference Range HDL <40 mg/dL Low HDL Cholesterol HDL >or= 60 mg/dL High HDL Cholesterol Serum or plasma cholesterol in VLDL measurement (mass/volume)Ordered By: Dr. Mueller on 07-14-2022 Cholesterol in VLDL [Mass/Vol] 13 mg/dL 5-40 [facility] Serum or plasma creatinine m easurement (mass/volume)Ordered By: Dr. Mueller on 07-14-2022 Creatinine [Mass/Vol] 1.15 mg/dL 0.70-1.30 [facility] Comment on above: The validity of the calculated GFR & GFRAA in patients over 70 years has not been determined. Clinical correlation is essential. Serum or plasma low density lipoprotein (LDL) cholesterol measurement (mass/volume)Ordered By: Dr. Mueller on 07-14-2022 Cholesterol in LDL [Mass/Vol] 56 mg/dL 0-130 [facility] Serum or plasma urea nitroge n measurement (mass/volume)Ordered By: Dr. Mueller on 07-14-2022 Urea nitrogen [Mass/Vol] 24 mg/dL 7-18 [facility] Thin prep Papanicolaou smear with manual screeningOrdered By: Dr. Mueller on 07-14-2022 Thin prep Papanicolaou smear with manual screening 23 U/L 15-37 [facility] Thin prep Papanicolaou smear with manual screening 3 5-15 [facility] Whole blood hemoglobin A1c/t otal hemoglobin ratio (mass fraction)Ordered By: Dr. Mueller on 07-14-2022 HbA1c (Bld) [Mass fraction] 5.9 % 3.8-5.6 [facility] Comment on above: Normal < 5.7 % Predi abetic 5.7 - 6.4 % Diabetic >or= 6.5 % Please note range changes. Basophil percentageon 2021 Chloride [Moles/Vol] 105 mmol/L 98-107 [facility] Work Phone: Glucose [Mass/Vol] 98 mg/dL 74-106 [facility] Work Phone: Potassium [Moles/Vol] 3.6 mmol/L 3.5-5.1 [facility] Work Phone: Sodium [Moles/Vol] 139 mmol/L 136-145 [facility] Work Phone: Laboratory - Chemistry and C hemistry - challengeon 03-29-2022 CO2 [Moles/Vol] 30.0 mmol/L 21.0-32.0 [facility] Work Phone: Urea nitrogen/Creatinine [Mass ratio] 18.3 mg/mg 10-20 [facility] Work Phone: No Panel Informationon 03-29 Estimated GFR (MDRD) Amer 76 mL/min >60 [facility] Work Phone: Comment on above: GFR Calc Estimated GFR (MDRD) Non-Af Amer 62 mL/min >60 [facility] Work Phone: Comment on above: Non- GFR Calc Serum or plasma calcium dulce urement (mass/volume)on 03-29-2022 Calcium [Mass/Vol] 9.2 mg/dL 8.5-10.1 [facility] Work Phone: Serum or plasma creatinine m easurement (mass/volume)on 03-29-2022 Creatinine [Mass/Vol] 1.20 mg/dL 0.70-1.30 [facility] Work Phone: Comment on above: The validity of the calculated GFR & GFRAA in patients over 70 years has not been determined. Clinical correlation is essential. Serum or plasma urea nitroge n measurement (mass/volume)on 03-29-2022 Urea nitrogen [Mass/Vol] 22 mg/dL 7-18 [facility] Work Phone: Thin prep Papanicolaou smear with manual screeningon 03-29-2022 Thin prep Papanicolaou smear with manual screening 4 5-15 [facility] Work Phone: Whole blood hemoglobin A1c/t otal hemoglobin ratio (mass fraction)on 03-29-2022 HbA1c (Bld) [Mass fraction] 5.8 % 3.8-5.6 [facility] Work Phone: Comment on above: Normal < 5.7 % Predi abetic 5.7 - 6.4 % Diabetic >or= 6.5 % Please note range changes. Absolute lymphocyte counton 03-14-2022 Lymphocytes Auto (Unsp spec) [#/Vol] 1.62 10*3/uL 0.83-4.51 [facility] Work Phone: Basophil percentageon 2021 Basophil percentage 5-10 SEEN /hpf 0-5 [facility] Work Phone: Basophils/100 WBC (Bld) 0.4 % 0-1 [facility] Work Phone: Bilirubin [Mass/Vol] 0.60 mg/dL 0.20-1.00 [facility] Work Phone: Comment on above: For patients on eltr ombopag therapy, use of Dimension [place] TBIL is not recommended. Chloride [Moles/Vol] 103 mmol/L 98-107 [facility] Work Phone: Cholesterol [Mass/Vol] 126 mg/dL <200 [facility] Work Phone: Comment on above: <200 mg/dL Desirable 200-240 mg/dL Borderline >240 mg/dL High Risk Eosinophils/100 WBC (Bld) 3.8 % 0-5 [facility] Work Phone: Glucose [Mass/Vol] 104 mg/dL 74-106 [facility] Work Phone: Comment on above: Fasting Glucose resu lt from 100 to 125 mg/dL suggests IMPAIRED HOMEOSTASIS per A.D.A. criteria. Neutrophils (Bld) [#/Vol] 2.8 10*3/uL 2.0-7.7 [facility] Work Phone: Neutrophils/100 WBC (Bld) 53.0 % 47-70 [facility] Work Phone: Potassium [Moles/Vol] 3.7 mmol/L 3.5-5.1 [facility] Work Phone: Protein [Mass/Vol] 7.6 g/dL 6.4-8.2 [facility] Work Phone: Sodium [Moles/Vol] 140 mmol/L 136-145 [facility] Work Phone: Triglyceride [Mass/Vol] 76 mg/dL <199 [facility] Work Phone: Comment on above: The drugs N-Acetylcy steine and Metamizole may falsely depress this assay.Serum Triglycerides Reference Interval Normal <150 mg/dL Borderline high 150 - 199 mg/dL High 200 - 499 mg/dL Very High > or = 500 mg/dL WBC (Bld) [#/Vol] 5.2 10*3/uL 4.4-11.0 [facility] Work Phone: Bilirubin Test strip Ql (U)o n 03-14-2022 Bilirubin Ql (U) Negative Negative [facility] Work Phone: Blood erythrocytes count (nu mber/volume)on 03-14-2022 RBC (Bld) [#/Vol] 4.65 10*6/uL 4.6-6.2 [facility] Work Phone: Blood hemoglobin measurement (mass/volume)on 03-14-2022 Hemoglobin (Bld) [Mass/Vol] 15.0 g/dL 13.0-16.5 [facility] Work Phone: Blood lymphocytes/100 leukoc yteson 03-14-2022 Lymphocytes/100 WBC (Bld) 31.1 % 19-41 [facility] Work Phone: Blood monocytes/100 leukocyt eson 03-14-2022 Monocytes/100 WBC (Bld) 11.5 % 0-10 [facility] Work Phone: Blood platelet mean volumeon 03-14-2022 Platelet mean volume (Bld) [Entitic vol] 10.6 fL 6.2-12.0 [facility] Work Phone: Determination of erythrocyte mean corpuscular volume (MCV)on 03-14-2022 MCV (RBC) [Entitic vol] 95.7 fL 80-94 [facility] Work Phone: Hematocrit Auto (Bld) [Volum e fraction]on 03-14-2022 Hematocrit (Bld) [Volume fraction] 44.5 % 40-54 [facility] Work Phone: Ketones Test strip Ql (U)on 03-14-2022 Ketones Ql (U) Negative Negative [facility] Work Phone: Laboratory - Chemistry and C hemistry - challengeon 03-14-2022 ALP [Catalytic activity/Vol] 81 U/L 45-117 [facility] Work Phone: ALT [Catalytic activity/Vol] 25 U/L 16-61 [facility] Work Phone: CO2 [Moles/Vol] 32.0 mmol/L 21.0-32.0 [facility] Work Phone: Free T4 [Mass/Vol] 1.06 ng/dL 0.76-1.46 [facility] Work Phone: Globulin (S) [Mass/Vol] 4.0 g/dL 2.2-4.2 [facility] Work Phone: Urea nitrogen/Creatinine [Mass ratio] 18.9 mg/mg 10-20 [facility] Work Phone: Laboratory - Hematology and Cell countson 03-14-2022 Erythrocyte distribution width (RBC) [Entitic vol] 46.3 fL 35.1-43.9 [facility] Work Phone: Erythrocyte distribution width (RBC) [Ratio] 13.2 % 11.6-14.6 [facility] Work Phone: Immature granulocytes/100 WBC (Bld) 0.200 % 0.0-0.9 [facility] Work Phone: Comment on above: IG% - Immature Granu locytes (promyelocytes, myelocytes and metamyelocytes) > 1% indicates that a LEFT SHIFT is Present. MCH (RBC) [Entitic mass] 32.3 pg 27.0-32.0 [facility] Work Phone: Nucleated RBC/100 WBC (Bld) [Ratio] 0 % 0-5 [facility] Work Phone: MCHC Auto (RBC) [Mass/Vol]on 03-14-2022 MCHC (RBC) [Mass/Vol] 33.7 g/dL 32-36 [facility] Work Phone: Mucus LM Ql (Urine sed)on Mucus Ql (Urine sed) 0 SEEN /hpf [facility] Work Phone: Nitrite Test strip Ql (U)on 03-14-2022 Nitrite Ql (U) Negative Negative [facility] Work Phone: No Panel Informationon 03-14 Estimated GFR (MDRD) Amer 71 mL/min >60 [facility] Work Phone: Comment on above: GFR Calc Estimated GFR (MDRD) Non-Af Amer 59 mL/min >60 [facility] Work Phone: Comment on above: Non- GFR Calc Thyroid Stimulating Hormone (TSH) 3.40 uIU/mL 0.358-3.74 [facility] Work Phone: Vitamin D 25-Hydroxy 46.2 ng/mL [facility] Work Phone: Comment on above: Vitamin D 25(OH) Sta tus Range Deficiency <20 ng/mL (50nmol/L) Insufficiency 20 - 30 ng/mL (50 - 75 nmol/L) Sufficiency 30 - 100 ng/mL (75 - 250 nmol/L) Toxicity >100 ng/mL (>250 nmol/L) Platelets bldon 03-14-2022 Platelets (Bld) [#/Vol] 221 10*3/uL 150-450 [facility] Work Phone: Protein Test strip Ql (U)on 03-14-2022 Protein Ql (U) Negative Negative [facility] Work Phone: Serum or plasma albumin dulce urement (mass/volume)on 03-14-2022 Albumin [Mass/Vol] 3.6 g/dL 3.2-5.0 [facility] Work Phone: Serum or plasma albumin/glob ulin mass ratioon 03-14-2022 Albumin/Globulin [Mass ratio] 0.9 {ratio} 0.9-2.4 [facility] Work Phone: Serum or plasma calcium dulce urement (mass/volume)on 03-14-2022 Calcium [Mass/Vol] 9.2 mg/dL 8.5-10.1 [facility] Work Phone: Serum or plasma cholesterol in HDL measurement (mass/volume)on 03-14-2022 Cholesterol in HDL [Mass/Vol] 54 mg/dL >40 [facility] Work Phone: Comment on above: The drugs N-Acetylcy steine and Metamizole may falsely depress this assay. Reference Range HDL <40 mg/dL Low HDL Cholesterol HDL >or= 60 mg/dL High HDL Cholesterol Serum or plasma cholesterol in VLDL measurement (mass/volume)on 03-14-2022 Cholesterol in VLDL [Mass/Vol] 15 mg/dL 5-40 [facility] Work Phone: Serum or plasma creatinine m easurement (mass/volume)on 03-14-2022 Creatinine [Mass/Vol] 1.27 mg/dL 0.70-1.30 [facility] Work Phone: Comment on above: The validity of the calculated GFR & GFRAA in patients over 70 years has not been determined. Clinical correlation is essential. Serum or plasma low density lipoprotein (LDL) cholesterol measurement (mass/volume)on 03-14-2022 Cholesterol in LDL [Mass/Vol] 57 mg/dL 0-130 [facility] Work Phone: Serum or plasma urea nitroge n measurement (mass/volume)on 03-14-2022 Urea nitrogen [Mass/Vol] 24 mg/dL 7-18 [facility] Work Phone: Squamous epithelial cells de tection in urine sediment by light microscopyon 03-14-2022 Epithelial cells.squamous LM Ql (Urine sed) 0 SEEN /hpf 0-5 [facility] Work Phone: Thin prep Papanicolaou smear with manual screeningon 03-14-2022 Thin prep Papanicolaou smear with manual screening 25 U/L 15-37 [facility] Work Phone: Thin prep Papanicolaou smear with manual screening 5 5-15 [facility] Work Phone: Urine blood detectionon 02-27 RBC Ql (U) Negative Negative [facility] Work Phone: RBC Ql (U) 0 SEEN /hpf 0-5 [facility] Work Phone: Urine clarityon 03-14-2022 Clarity (U) Clear Clear [facility] Work Phone: Urine color determinationon 03-14-2022 Color (U) Yellow Yellow [facility] Work Phone: Urine glucose detectionon Glucose Ql (U) Normal mg/dl Normal [facility] Work Phone: Urine leukocyte esterase det ection by dipstickon 03-14-2022 Leukocyte esterase Test strip Ql (U) 100 /ul Negative [facility] Work Phone: Urine pHon 03-14-2022 pH (U) 7.0 [pH] 5.0 - 8.0 [facility] Work Phone: Urine sediment bacteria coun t by microscopy (number/high power field)on 03-14-2022 Bacteria LM.HPF (Urine sed) [#/Area] 0 /[HPF] None Seen [facility] Work Phone: Urine specific gravity measu rementon 03-14-2022 Specific gravity (U) [Rel density] 1.010 1.002-1.030 [facility] Work Phone: Urobilinogen Auto test strip Ql (U)on 03-14-2022 Urobilinogen Ql (U) Normal mg/dl Normal [facility] Work Phone: Culture, urineon 11-23-2021 Bacteria identified Cx Nom (U) Enterococcus faecalis [facility] Work Phone: Culture, urineon 09-29-2021 Bacteria identified Cx Nom (U) Enterococcus faecalis [facility] Work Phone: Office Visiton 03-22-2017 Documentation of current medications (procedure) Done Invalid Interpretation Code [place] [facility] Work Phone: [phone] Fall risk assessment No [facility] Work Phone: [phone] Protein mass conc Done [facility] Work Phone: [phone] Lab Report: Lipid Profileon 02-20-2017 Cholesterol 127 mg/dL 200 [facility] Work Phone: [phone] HDL Cholesterol 64 mg/dL [facility] Work Phone: [phone] LDL Cholesterol 51 mg/dL 0-130 [place] [facility] Work Phone: [phone] Triglyceride 62 mg/dL [facility] Work Phone: [phone] very low density lipoproteins 12 mg/dL 5-40 [facility] Work Phone: [phone] Lab Report: Liver Profileon 02-20-2017 Alanine aminotransferase (ALT) 22 U/L 12-78 [place] [facility] Work Phone: [phone] Albumin 3.6 g/dL 3.4-5.0 [facility] Work Phone: [phone] Alkaline phosphatase (ALP) 95 U/L Invalid Interpretation Code 45-117 [place] [facility] Work Phone: [phone] ALP enzyme act/vol (Bld) 95 U/L 45-117 [facility] Work Phone: [phone] Aspartate aminotransferase (AST) 24 U/L 15-37 [facility] Work Phone: [phone] Bilirubin (direct) 0.21 mg/dL 0.00-0.30 [facility] Work Phone: [phone] Bilirubin (total) 1.00 mg/dL 0.20-1.00 [facility] Work Phone: [phone] Globulin 4.1 g/dL High 2.3-3.5 [facility] Work Phone: [phone] Globulin mass conc (S) 4.1 g/dL High 2.3-3.5 [facility] Work Phone: [phone] Protein 7.7 g/dL 6.4-8.2 [facility] Work Phone: [phone] Lab Report: PSA,Total - Maria Elena al Screenon 02-20-2017 prostate specific antigen (PSA) screening 9.30 ng/mL High 0.00-4.00 [facility] Work Phone: [phone] Protein mass conc 9.30 ng/mL High 0.00-4.00 [facility] Work Phone: [phone] Office Visiton 12-19-2016 Documentation of current medications (procedure) Done Invalid Interpretation Code [facility] Work Phone: [phone] Fall risk assessment No [facility] Work Phone: [phone] Protein mass conc Done [facility] Work Phone: [phone] Replaced Document: Will Sánchez CG Observationson 12-19-2016 BUN (urea nitrogen) Sinus Rhythm - occasional ectopic ventricular beat -Right bundle branch block with left axis -bifascicular block. ABNORMAL Invalid Interpretation Code [facility] Work Phone: [phone] EKG QRS axis -75 deg [facility] Work Phone: [phone] GE use only - for [employer] import when terms are not otherwise specified 454 ms Invalid Interpretation Code [facility] Work Phone: [phone] P [place] 31 deg [facility] Work Phone: [phone] P wave axis, electrocardiogram 31 deg Invalid Interpretation Code [facility] Work Phone: [phone] [place] Interval 214 ms [facility] Work Phone: [phone] NH interval, electrocardiogram 214 ms Invalid Interpretation Code [facility] Work Phone: [phone] Pulse (Heart Rate) 65 /min Invalid Interpretation Code [facility] Work Phone: [phone] QRS axis, electrocardiogram -75 deg Invalid Interpretation Code [facility] Work Phone: [phone] QRS Duration 158 ms [facility] Work Phone: [phone] QRS duration, electrocardiogram 158 ms Invalid Interpretation Code [facility] Work Phone: [phone] QT Interval new path ms [facility] Work Phone: [phone] QT interval, electrocardiogram new path ms Invalid Interpretation Code [facility] Work Phone: [phone] QTc Tobias 454 ms [facility] Work Phone: [phone] T [place] 51 deg [facility] Work Phone: [phone] T wave axis, electrocardiogram 51 deg Invalid Interpretation Code [facility] Work Phone: [phone] Urea nitrogen [Mass/Vol] Sinus Rhythm - occasional ectopic ventricular beat -Right bundle branch block with left axis -bifascicular block. 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 Left ventricular Ejection fraction 65 % [facility] Work Phone: [phone] Lab Report: Basic Metabolic Profile (BMP)on 08-18-2016 Anion gap 8 mmol/L Invalid Interpretation Code 12-11 [facility] Work Phone: [phone] Anion gap [Moles/Vol] 8 mmol/L 12-11 [facility] Work Phone: [phone] BUN/Creatinine Ratio 19.7 RATIO 10-[address] [facility] Work Phone: [phone] Calcium 8.7 mg/dL 8.5-10.1 [facility] Work Phone: [phone] Chloride 101 mmol/L 98-107 [facility] Work Phone: [phone] CO2 30.0 mmol/L Invalid Interpretation Code 21.0-32.0 [facility] Work Phone: [phone] CO2 (BldV) [Partial pressure] 30.0 mmol/L 21.0-32.0 [facility] Work Phone: [phone] Creatinine 1.17 mg/dL 0.70-1.30 [facility] Work Phone: [phone] eGFR (non-black) 65 mL/min/{1.73_m2} >60 [facility] Work Phone: [phone] eGFR (non-black) 79 mL/min/{1.73_m2} Invalid Interpretation Code >60 [facility] Work Phone: [phone] EST GFR - AA 79 mL/min >60 [facility] Work Phone: [phone] Glucose 84 mg/dL Invalid Interpretation Code 70-110 [facility] Work Phone: [phone] Glucose [Mass/Vol] 84 mg/dL 70-110 [facility] Work Phone: [phone] Potassium 3.5 mmol/L 3.5-5.1 [facility] Work Phone: [phone] Sodium 139 mmol/L 136-145 [facility] Work Phone: [phone] Urea nitrogen 23 mg/dL High 7-18 [facility] Work Phone: [phone] Lab Report: Lipid Profileon 08-18-2016 Cholesterol 132 mg/dL Invalid Interpretation Code 200 [facility] Work Phone: [phone] HDL Cholesterol 57 mg/dL Invalid Interpretation Code [facility] Work Phone: [phone] LDL Cholesterol 62 mg/dL Invalid Interpretation Code 0-130 [facility] Work Phone: [phone] Triglyceride 67 mg/dL Invalid Interpretation Code [facility] Work Phone: [phone] very low density lipoproteins 13 mg/dL Invalid Interpretation Code 5-40 [facility] Work Phone: [phone] Lab Report: Liver Profileon 08-18-2016 Alanine aminotransferase (ALT) 33 U/L Invalid Interpretation Code 12-78 [facility] Work Phone: [phone] Albumin 3.7 g/dL Invalid Interpretation Code 3.4-5.0 [facility] Work Phone: [phone] Alkaline phosphatase (ALP) 87 U/L Invalid Interpretation Code 45-117 [facility] Work Phone: [phone] ALP (Bld) [Catalytic activity/Vol] 87 U/L 45-117 [facility] Work Phone: [phone] Aspartate aminotransferase (AST) 26 U/L Invalid Interpretation Code 15-37 [facility] Work Phone: [phone] Bilirubin (direct) 0.13 mg/dL Invalid Interpretation Code 0.00-0.30 [facility] Work Phone: [phone] Bilirubin (total) 0.50 mg/dL Invalid Interpretation Code 0.20-1.00 [facility] Work Phone: [phone] Globulin 3.7 g/dL High 2.3-3.5 [facility] Work Phone: [phone] Globulin (S) [Mass/Vol] 3.7 g/dL High 2.3-3.5 [facility] Work Phone: [phone] Protein 7.4 g/dL Invalid Interpretation Code 6.4-8.2 [employer] Work Phone: [phone] Lab Report: Thyroid Stim Hor corrine (TSH)on 08-18-2016 Thyroid stimulating hormone (TSH) 9.01 u[iU]/mL High 0.358-3.74 [employer] Work Phone: [phone] Office Visiton 08-15-2016 Documentation of current medications (procedure) Done Invalid Interpretation Code [employer] Work Phone: [phone] Office Visiton 08-10-2015 Tobacco smoking status NHIS Never smoker [employer] Work Phone: [phone] Tobacco use CPHS Never smoker Invalid Interpretation Code [employer] Work Phone: [phone] Office Visiton 01-22-2015 cardiac risk group [facility] Work Phone: [phone] General cardiovascular disease 10Y risk [#] Gr[place]ley.Vinny'Agomanjit N/A [employer] Work Phone: [phone] Clinical Lists Update: [employer] internship 04-03-2014 Cholesterol to HDL Ratio 2.53 {ratio} [facility] Work Phone: [phone] LDL Cholesterol 72 mg/dL [facility] Work Phone: [phone] LDL/HDL ratio, serum 1.21 [facility] Work Phone: [phone] Lab Report: CBCon 11-06-2013 Erythrocytes (RBC) 4.60 10*6/uL Normal 4.6-6.2 [facility] Work Phone: [phone] Hematocrit (Bld) [Volume fraction] 42.3 % Normal 40-54 [facility] Work Phone: [phone] Hematocrit (HCT) 42.3 % Normal 40-54 [facility] Work Phone: [phone] Hemoglobin (HGB) 14.6 g/dL Normal 13.0-16.5 [facility] Work Phone: [phone] MCH 31.7 pg Normal 27.0-32.0 [facility] Work Phone: [phone] MCH (RBC) [Entitic mass] 31.7 pg Normal 27.0-32.0 [facility] Work Phone: [phone] MCHC 34.5 G/GL Normal 32-36 [facility] Work Phone: [phone] MCHC (RBC) [Mass/Vol] 34.5 G/GL Normal 32-36 [facility] Work Phone: [phone] MCV 92.0 fL Normal 80-94 [facility] Work Phone: [phone] MCV (RBC) [Entitic vol] 92.0 fL Normal 80-94 [facility] Work Phone: [phone] Platelet mean volume (Bld) [Entitic vol] 10.3 fL Normal 6.2-12.0 [facility] Work Phone: [phone] Platelets 222 10*3/mm3 Normal 150-450 [facility] Work Phone: [phone] Platelets (Bld) [#/Vol] 222 10*3/mm3 Normal 150-450 [facility] Work Phone: [phone] PMV by Radha 10.3 fL Normal 6.2-12.0 [facility] Work Phone: [phone] RBC (Bld) [#/Vol] 4.60 10*6/uL Normal 4.6-6.2 [facility] Work Phone: [phone] RDW-CA 45.1 fl High 35.1-43.9 [facility] Work Phone: [phone] WBC (Bld) [#/Vol] 5.2 10*3/uL Normal 4.4-11.0 [facility] Work Phone: [phone] WBC (Leukocytes) 5.2 10*3/uL Normal 4.4-11.0 [facility] Work Phone: [phone] Lab Report: PTon 11-06-2013 INR Coag (PPP) [Relative time] 1.0 {INR} Normal [facility] Work Phone: [phone] INR in blood by coagulation 1.0 {INR} Normal [facility] Work Phone: [phone] prothrombin time, actual/normal, ratio 12.7 SECONDS Normal 11.9-14.4 [facility] Work Phone: [phone] PTP 12.7 SECONDS Normal 11.9-14.4 [facility] Work Phone: [phone] Replaced Document: Will Sánchez CG Observationson 11-04-2013 BUN (urea nitrogen) Sinus Rhythm -Right bundle branch block with left axis -bifascicular block. ABNORMAL Invalid Interpretation Code [facility] Work Phone: [phone] P wave axis, electrocardiogram 33 deg Invalid Interpretation Code [facility] Work Phone: [phone] NH interval, electrocardiogram 204 ms Invalid Interpretation Code [facility] Work Phone: [phone] Pulse (Heart Rate) 71 /min Invalid Interpretation Code [facility] Work Phone: [phone] QRS axis, electrocardiogram -80 deg Invalid Interpretation Code [facility] Work Phone: [phone] QRS duration, electrocardiogram 162 ms Invalid Interpretation Code [facility] Work Phone: [phone] QT interval, electrocardiogram new path ms Invalid Interpretation Code [facility] Work Phone: [phone] T wave axis, electrocardiogram 58 deg Invalid Interpretation Code [facility] Work Phone: [phone] Replaced Document: Will Sánchez CG Observationson 10-02-2012 Pulse (Heart Rate) 443 ms Invalid Interpretation Code [facility] Work Phone: [phone] Lab Reporton 01-16-2012 Globulin 2.8 g/dL Invalid Interpretation Code [facility] Work Phone: [phone] Globulin (S) [Mass/Vol] 2.8 g[facility] Work Phone: [phone] Culture, urine Bacteria identified Cx Nom (U) Enterococcus faecalis [facility] Work Phone: Vital Signs Date Time Vital Sign Value Performing Clinician Facility 02-18-2025 11:16-0400 Body height 175 cm Stephanie Moya PA-C Work Phone: [facility] 02-18-2025 11:16-0400 Body height 175.26 cm Stephanie Moya PA-C Work Phone: [facility] 02-18-2025 11:16-0400 Body mass index (BMI) [Ratio] 26.68 kg/m2 Stephanie Moya PA-C Work Phone: [facility] 02-18-2025 11:16-0400 Body weight 82 kg Stephanie Moya PA-C Work Phone: [facility] 02-18-2025 11:16-0400 Body weight 81.65 kg Stephanie Moya PA-C Work Phone: [facility] 02-18-2025 11:16-0400 BP SITE #1 Stephanie Moya PA-C Work Phone: [facility] 02-18-2025 11:16-0400 Diastolic blood pressure 70 mm[Hg] Stephanie Moya PA-C Work Phone: [facility] 02-18-2025 11:16-0400 Heart rate 82 /min Stephanie Moya PA-C Work Phone: [facility] 02-18-2025 11:16-0400 HGHTCHNVIS Stephanie Moya PA-C Work Phone: [facility] 02-18-2025 11:16-0400 Systolic blood pressure 126 mm[Hg] Stephanie Moya PA-C Work Phone: [facility] 02-18-2025 11:16-0400 VITALSDONE Stephanie Moya PA-C Work Phone: [facility] 06-11-2024 12:07-0500 Diastolic blood pressure 73 mm[Hg] Annetta Krause MD Work Phone: [facility] 06-11-2024 12:07-0500 Heart rate 55 /min Annetta Krause MD Work Phone: [facility] 06-11-2024 12:07-0500 Systolic blood pressure 162 mm[Hg] Annetta Krause MD Work Phone: [facility] 10-11-2023 14:23-0400 Body temperature 97.6 [degF] Dr. Moiz Mueller Work Phone: [facility] 10-11-2023 14:23-0400 Diastolic blood pressure 86 mm[Hg] Dr. Moiz Mueller Work Phone: [facility] 10-11-2023 14:23-0400 Heart rate 64 /min Dr. Moiz Mueller Work Phone: [facility] 10-11-2023 14:23-0400 Respiratory rate 22 /min Dr. Moiz Mueller Work Phone: [facility] 10-11-2023 14:23-0400 SaO2% (BldA) [Mass fraction] 95 % Dr. Moiz Mueller Work Phone: [facility] 10-11-2023 14:23-0400 Systolic blood pressure 156 mm[Hg] Dr. Moiz Mueller Work Phone: [facility] 10-11-2023 12:00-0400 Inhaled oxygen flow rate 3 L/min Dr. Moiz Mueller Work Phone: [facility] 10-11-2023 09:21-0400 Body height 175.[address] Moiz Mueller Work Phone: [facility] 10-11-2023 09:21-0400 Body mass index (BMI) [Ratio] 26.5 kg/m2 Dr. Moiz Mueller Work Phone: [facility] 10-11-2023 09:21-0400 Body weight 81.[address] Moiz Mueller Work Phone: [facility] 08-31-2023 13:31-0500 Body height 172.[address] Moiz Mueller Work Phone: [facility] 08-31-2023 13:31-0500 Body mass index (BMI) [Ratio] 27.3 kg/m2 Dr. Moiz Mueller Work Phone: [facility] 08-31-2023 13:31-0500 Body weight 81.[address] Moiz Mueller Work Phone: [facility] 08-31-2023 13:31-0500 Diastolic blood pressure 60 mm[Hg] Dr. Moiz Mueller Work Phone: [facility] 08-31-2023 13:31-0500 Heart rate 52 /min Dr. Moiz Mueller Work Phone: [facility] 08-31-2023 13:31-0500 Respiratory rate 18 /min Dr. Moiz Mueller Work Phone: [facility] 08-31-2023 13:31-0500 SaO2% (BldA) [Mass fraction] 96 % Dr. Moiz Mueller Work Phone: [facility] 08-31-2023 13:31-0500 Systolic blood pressure 112 mm[Hg] Dr. Moiz Mueller Work Phone: [facility] 05-03-2023 14:25-0400 Body height 172.[address] Moiz Mueller Work Phone: [facility] 05-03-2023 14:25-0400 Body mass index (BMI) [Ratio] 27.5 kg/m2 Dr. Moiz Mueller Work Phone: [facility] 05-03-2023 14:25-0400 Body weight 82.[address] Moiz Mueller Work Phone: [facility] 05-03-2023 14:25-0400 Diastolic blood pressure 75 mm[Hg] Dr. Moiz Mueller Work Phone: [facility] 05-03-2023 14:25-0400 Heart rate 61 /min Dr. Moiz Mueller Work Phone: [facility] 05-03-2023 14:25-0400 Respiratory rate 18 /min Dr. Moiz Mueller Work Phone: [facility] 05-03-2023 14:25-0400 Systolic blood pressure 134 mm[Hg] Dr. Moiz Mueller Work Phone: [facility] 02-22-2023 10:55-0400 Body mass index (BMI) [Ratio] 26.8 kg/m2 Dr. Moiz Mueller Work Phone: [facility] 02-22-2023 10:55-0400 Body weight 79.[address] Moiz Mueller Work Phone: [facility] 02-22-2023 10:55-0400 Diastolic blood pressure 68 mm[Hg] Dr. Moiz Mueller Work Phone: [facility] 02-22-2023 10:55-0400 Heart rate 48 /min Dr. Moiz Mueller Work Phone: [facility] 02-22-2023 10:55-0400 Respiratory rate 16 /min Dr. Moiz Mueller Work Phone: [facility] 02-22-2023 10:55-0400 SaO2% (BldA) [Mass fraction] 95 % Dr. Moiz Mueller Work Phone: [facility] 02-22-2023 10:55-0400 Systolic blood pressure 137 mm[Hg] Dr. Moiz Mueller Work Phone: [facility] 08-25-2022 14:20-0500 Body height 172.[address] Moiz Mueller Work Phone: [facility] 08-25-2022 14:20-0500 Body mass index (BMI) [Ratio] 27.2 kg/m2 Dr. Moiz Mueller Work Phone: [facility] 08-25-2022 14:20-0500 Body weight 81.[address] Moiz Mueller Work Phone: [facility] 08-25-2022 14:20-0500 Diastolic blood pressure 68 mm[Hg] Dr. Moiz Mueller Work Phone: [facility] 08-25-2022 14:20-0500 Heart rate 55 /min Dr. Moiz Mueller Work Phone: [facility] 08-25-2022 14:20-0500 Respiratory rate 16 /min Dr. Moiz Mueller Work Phone: [facility] 08-25-2022 14:20-0500 Systolic blood pressure 127 mm[Hg] Dr. Moiz Mueller Work Phone: [facility] 02-09-2022 13:07-0400 Body height 172.[address] Moiz Mueller Work Phone: [facility] Work Phone: 08-09-2021 08:42-0500 Body mass index (BMI) [Ratio] 28.1 kg/m2 Dr. Moiz Mueller Work Phone: [facility] Work Phone: 08-09-2021 08:42-0500 Body weight 83.[address] Moiz Mueller Work Phone: [facility] Work Phone: 08-09-2021 08:42-0500 Diastolic blood pressure 72 mm[Hg] Dr. Moiz Mueller Work Phone: [facility] Work Phone: 08-09-2021 08:42-0500 Heart rate 53 /min Dr. Moiz Mueller Work Phone: [facility] Work Phone: 08-09-2021 08:42-0500 Respiratory rate 18 /min Dr. Moiz Mueller Work Phone: [facility] Work Phone: 08-09-2021 08:42-0500 SaO2% (BldA) [Mass fraction] 97 % Dr. Moiz Mueller Work Phone: [facility] Work Phone: 08-09-2021 08:42-0500 Systolic blood pressure 146 mm[Hg] Dr. Moiz Mueller Work Phone: [facility] Work Phone: 08-09-2021 07:42-0500 Body height 172.[address] Moiz Mueller Work Phone: [facility] Work Phone: 08-09-2021 07:42-0500 Body weight 83.[address] Moiz Mueller Work Phone: [facility] Work Phone: 08-09-2021 07:42-0500 Diastolic blood pressure 72 mm[Hg] Dr. Moiz Mueller Work Phone: [facility] Work Phone: 08-09-2021 07:42-0500 Heart rate 57 /min Dr. Moiz Mueller Work Phone: [facility] Work Phone: 08-09-2021 07:42-0500 Respiratory rate 18 /min Dr. Moiz Mueller Work Phone: [facility] Work Phone: 08-09-2021 07:42-0500 SaO2% (BldA) [Mass fraction] 99 % Dr. Moiz Mueller Work Phone: [facility] Work Phone: 08-09-2021 07:42-0500 Systolic blood pressure 154 mm[Hg] Dr. Moiz Mueller Work Phone: [facility] Work Phone: 12-28-2020 12:30-0400 Body mass index (BMI) [Ratio] 26.9 kg/m2 Dr. Moiz Mueller Work Phone: [facility] Work Phone: 03-22-2017 14:51-0400 BMI (Body [...] Mass Index) 26.73 kg/m2 Unique Zamorano RN [facility] Work Phone: 08-15-2016 09:11-0500 BP Diastolic 60 mm[Hg] Unique Zamorano RN [facility] Work Phone: 08-15-2016 09:11-0500 BP Systolic 130 mm[Hg] Unique Zamorano RN [facility] Work Phone: 08-15-2016 09:11-0500 BSA (Body Surface Area) 1.98 m2 Unique Zamorano RN [facility] Work Phone: 08-15-2016 09:11-0500 Pulse (Heart Rate) 68 /min Unique Zamorano RN [facility] Work Phone: 08-15-2016 09:11-0500 Respiratory Rate 20 /min [facility] Work Phone: 08-15-2016 09:11-0500 Weight 82.1 kg Unique Zamorano RN [facility] Work Phone: 12-18-2013 15:19-0400 Height 175.26 cm Unique Zamorano RN [facility] Work Phone: 10-02-2012 11:38-0500 Heart rate 443 ms Alie Chauhan [facility] Work Phone: Encounters Encounter Date Encounter Type Care Provider Facility Start: 05-01-2025 ambulatory Moiz Mueller Facilit y:[facility] Start: 2025 End: [address] Moiz Mueller MD Work Phone: -Cardiovascular Services Start: 2025 End: [address] Sarahi Eli MD -Cardiovascular Services Work Phone: Start: 2025 End: 2025 ambulatory Moiz Mueller Facility:[facility] Start: 02-20-2025 End: 02-20-[address] Moiz Mueller MD Work Phone: -Laboratory Start: 02-20-2025 End: 02-20-[address] Moiz Mueller MD -Laboratory Work Phone: Start: 02-20-2025 End: 02-20-2025 ambulatory Moiz Mueller Facility:[facility] Start: 02-18-2025 In-person encounter Stephanie murrell PA-C Work Phone: [facility] Work Phone: Start: 02-18-2025 Visit out of hours Stephanie bojorquez PA-C Work Phone: [employer] Work Phone: Start: 01-20-2025 End: 01-20-[address] Moiz Mueller MD Work Phone: -Laboratory Start: 01-20-2025 End: 01-20-[address] Moiz Mueller MD -Laboratory Work Phone: Start: 01-20-2025 End: 01-20-2025 ambulatory Moiz Mueller Facility:[facility] Start: 11-14-2024 End: 11-14-2024 Patient encounter procedure Kylah Dimas DDS Work Phone: Dentistry Comment on above: Sleep related bruxis m (Primary Dx); TMJ crepitus; Attrition, teeth excessive; Myofascial pain Start: 11-14-2024 End: 11-14-2024 ambulatory KYLAH DIMAS Facility:[facility] Start: 09-10-2024 End: 09-10-2024 [facility] Start: 09-05-2024 End: 09-05-2024 [facility] Start: 07-07-2024 ambulatory [facility] Start: 07-07-2024 End: 07-07-2024 ambulatory [facility] Facility:[facility] Start: 06-25-2024 End: 06-25-2024 Telephone encounter Kylah Dimas DDS Work Phone: Dentistry Comment on above: Appointment Start: 06-13-2024 End: 06-13-2024 ambulatory Edd Antonella Facility:[facility] Start: 06-11-2024 End: 06-11-2024 ambulatory ANNETTA KRAUSE Facility:[facility] Start: 06-11-2024 End: 06-11-2024 Patient encounter procedure Annetta Krause MD Work Phone: Urology Comment on above: Foreign body in blad nixon, sequela (Primary Dx); Screening for genitourinary condition; Postprocedural male urethral stricture; BPH with obstruction/lower urinary tract symptoms; Urinary frequency; Weak urinary stream; Intermittent urinary stream Start: 05-14-2024 End: 05-14-2024 ambulatory Moiz Mueller Facility:[facility] Start: 11-16-2023 End: 11-16-[address] Moiz Mueller Work Phone: [facility] Work Phone: Start: 11-16-2023 End: 11-16-[address] Moiz Mueller Work Phone: [facility]-Physical Therapy Work Phone: Start: 10-11-2023 End: 10-11-2023 Emergency department patient visit Dr. Moiz Mueller Work Phone: [facility]-Emergency Department Work Phone: Start: 10-09-2023 End: 10-09-[address] Moiz Muellre Work Phone: [facility] Work Phone: Start: 10-09-2023 End: 10-09-[address] Moiz Mueller Work Phone: [facility] Work Phone: Start: 10-04-[address] Moiz Mueller Work Phone: [facility]-Physical Therapy Work Phone: Start: 09-03-[address] Moiz Mueller Work Phone: [facility]-Physical Therapy Work Phone: Start: 08-31-2023 End: 08-31-[address] Moiz Mueller Work Phone: [facility] Work Phone: Start: 06-18-2023 Non-patient / Non-visit Dr. Annabella Mueller Work Phone: [facility] Work Phone: Start: 06-06-2023 Non-patient / Non-visit Dr. Annabella Mueller Work Phone: [facility] Start: 06-06-2023 End: 06-06-[address] Moiz Mueller Work Phone: [facility] Work Phone: Start: 06-06-2023 End: 06-06-[address] Moiz Mueller Work Phone: [facility]-Cardiovascula r Services Work Phone: Start: 05-14-2023 End: 05-14-[address] Moiz Mueller Work Phone: [facility] Work Phone: Start: 05-14-2023 End: 05-14-[address] Moiz Mueller Work Phone: [facility]-Pulmonary Services/Neurology Work Phone: Start: 05-08-2023 End: 05-08-[address] Moiz Mueller Work Phone: [facility] Work Phone: Start: 05-08-2023 End: 05-08-[address] Moiz Mueller Work Phone: [facility]-Laboratory Work Phone: Start: 05-03-2023 End: 05-03-[address] Moiz Mueller Work Phone: [facility] Work Phone: Start: 04-06-[address] Moiz Mueller Work Phone: [facility]-Physical Therapy Work Phone: Start: 02-22-2023 End: 02-22-[address] Moiz Mueller Work Phone: [facility] Work Phone: Start: 01-19-2023 End: 01-19-2023 ambulatory [facility] Work Phone: Start: 01-19-2023 End: 01-19-2023 [facility] Start: 10-16-2022 End: 10-16-[address] Moiz Mueller Work Phone: [facility] Work Phone: Start: 10-16-2022 End: 10-16-[address] [facility] Start: 08-25-2022 End: 08-25-[address] Moiz Mueller Work Phone: [facility] Start: 07-14-2022 End: 07-14-2022 ambulatory [facility] Work Phone: Start: 07-14-2022 End: 07-14-2022 [facility] Start: 03-29-2022 End: 03-29-[address] Moiz Mueller Work Phone: [facility] Work Phone: Start: 03-29-2022 End: 03-29-[address] [facility] Start: 03-16-2022 Non-patient / Non-visit Dr. Annabella Mueller Work Phone: [facility] Start: 03-16-2022 End: 03-16-[address] Moiz Mueller Work Phone: [facility]-Cardiovascula r Services Start: 03-14-2022 End: 03-14-[address] Moiz Mueller Work Phone: [facility] Work Phone: Start: 03-14-2022 End: 03-14-[address] Moiz Mueller Work Phone: [facility] Start: 02-09-2022 End: 02-09-[address] Moiz Mueller Work Phone: [facility] Start: 12-05-2021 End: 12-05-2021 Patient encounter procedure [facility] - [facility] Start: 11-23-2021 End: 11-23-[address] Moiz Mueller Work Phone: [facility], Specimen Start: 11-09-2021 End: 11-09-[address] Moiz Mueller Work Phone: [facility]Radiology, [facility] Start: 09-29-2021 End: 09-29-[address] Moiz Mueller Work Phone: [facility], Specimen Start: 08-09-2021 End: 08-09-[address] Moiz Mueller Work Phone: [facility] Start: 12-28-[address] Rose Mueller Work Phone: [facility] Procedures Date Procedure Procedure Detail Performing Clinician Start: 02-18-2025 Blood pressure withi n normal parameters - no follow-up required Stephanie Moya PA-C Work Phone: Start: 02-18-2025 BMI outside of rona l parameters - no follow-up plan/reason not given Stephanie Moya PA-C Work Phone: Start: 02-18-2025 Current tobacco non- user cad cap copd pv dm Stephanieisabel Myoa PA-C Work Phone: Start: 02-18-2025 Documentation of [...] Mueller Work Phone: Start: 03-22-2017 End: 03-22-2017 ACTIVITIES CONCIERGE Edd Berman MD Start: 03-22-2017 End: 03-22-2017 [...] Edd Berman MD Start: 11-04-2013 End: 11-04-2013 ACTIVITIES CONCIERGE Edd Berman MD Start: 11-04-2013 End: 11-04-2013 [...] Edd Berman MD Start: 10-02-2012 End: 10-02-2012 ACTIVITIES CONCIERGE Edd Berman MD Start: 10-02-2012 End: 10-02-2012 [...] DTaP,Tdap,Td Vaccine (3 - Td or Tdap) [facility] Start: 06-17-2025 End: 06-17-2025 Patient encounter procedure 06/17/2025 2:30 PM EST Office Visit Urology [address] [place] [address] Trino Rodriguez PA-C [address] [place] [address] Follow Up Urology Comment on above: Follow Up Start: 02-18-2025 End: 02-18-2025 [facility] Work Phone: Start: 02-18-2025 End: 02-18-2025 [facility] Work Phone: Start: 11-14-2024 End: 11-14-2024 Patient encounter procedure 11/14/2024 1:00 PM EDT Office Visit Dentistry [address] [address] Kylah Dimas DDS [address] [place] [address] TMJ Consult no NG - pano 01/15/24 in [facility] Comment on above: TMJ Consult no NG - pano 01/15/24 in [facility] Start: 10-13-2024 Covid-19 Vaccine ( season) Covid-19 Vaccine () [facility] Start: 07-30-2024 Advance Directive Discussion Advance Directive Discussion [facility] Start: 10-11-2023 [facility] Start: 07-30-2023 Advance Directive Discussion Advance Directive Discussion [facility] Start: 11-03-2019 Diabetes Screening Diabetes Screenin g [facility] Start: 10-09-2018 Hepatitis B surface antibody level LDL Cholesterol [facility] Start: 09-20-2017 End: 09-20-2017 Appointment Appointment [facility] Work Phone: Start: 08-23-2017 End: 02-28-2017 *Hepatic Function Panel *Hepatic Function Panel [facility] Work Phone: Start: 08-23-2017 End: 02-28-2017 Lipid panel [AGGREGATE] *Lipid Profile CC PCP [facility] Work Phone: Start: 03-22-2017 End: 03-22-2017 Appointment Appointment [facility] Work Phone: Start: 03-22-2017 End: 03-22-2017 Appointment Appointment [facility] Work Phone: Start: 03-22-2017 End: 03-22-2017 ACTIVITIES CONCIERGE ACTIVITIES CONCIERGE [employer] [facility] Work Phone: Start: 03-22-2017 End: 03-22-2017 Follow Up Appt 6 months Follow Up Appt 6 months [facility] Work Phone: Start: 03-02-2017 End: 03-02-2017 Appointment Appointment [facility] Work Phone: Start: 02-20-2017 End: 02-20-2017 Appointment Appointment [facility] Work Phone: Start: 02-20-2017 End: 02-20-2017 Follow Up BP Check Follow Up BP Check [facility] Work Phone: Start: 02-15-2017 End: 02-20-2017 *Hepatic Function Panel *Hepatic Function Panel [facility] Work Phone: Start: 02-15-2017 End: 02-20-2017 Lipid panel [AGGREGATE] *Lipid Profile CC PCP [employer] [facility] Work Phone: Start: 12-19-2016 End: 12-19-2016 Appointment Appointment [facility] Work Phone: Start: 12-19-2016 End: 12-19-2016 ACTIVITIES CONCIERGE ACTIVITIES CONCIERGE [facility] Work Phone: Start: 12-19-2016 End: 12-27-2016 Electrocardiogram, complete EKG (In office) [facility] Work Phone: Start: 12-19-2016 End: 12-19-2016 Follow Up Appt 3 months Follow Up Appt 3 months [facility] Work Phone: Start: 12-19-2016 End: 12-19-2016 Nuclear stress test -exercise Nuclear stress test -exercise [facility] Work Phone: Start: 08-15-2016 End: 08-18-2016 *BMP *BMP [employer] [facility] [employer] [facility] Work Phone: Start: 08-15-2016 End: 08-18-2016 *Hepatic Function Panel *Hepatic Function Panel [facility] Work Phone: Start: 08-15-2016 End: 08-15-2016 ACTIVITIES CONCIERGE ACTIVITIES CONCIERGE [facility] Work Phone: Start: 08-15-2016 End: [...] 6 months Follow Up Appt 6 months [facility] Work Phone: Start: 02-15-2016 End: 02-15-2016 MMM MMM [facility] Work Phone: Start: 02-03-2016 End: 02-11-2016 *Hepatic Function Panel *Hepatic Function Panel [facility] Work Phone: Start: 02-03-2016 End: 02-11-2016 Lipid panel [AGGREGATE] *Lipid Profile CC PCP [facility] Work Phone: Start: 08-10-2015 End: 08-10-2015 ACTIVITIES CONCIERGE ACTIVITIES CONCIERGE [facility] Work Phone: Start: 08-10-2015 End: 08-10-2015 Follow Up Appt 6 months Follow Up Appt 6 months [facility] Work Phone: Start: 07-28-2015 End: 08-05-2015 *Hepatic Function Panel *Hepatic Function Panel [facility] Work Phone: Start: 07-28-2015 End: 08-05-2015 Lipid panel [AGGREGATE] *Lipid Profile CC PCP [facility] Work Phone: Start: 01-22-2015 End: 01-26-2015 *Hepatic Function Panel *Hepatic Function Panel [facility] Work Phone: Start: 01-22-2015 End: 01-22-2015 ACTIVITIES CONCIERGE ACTIVITIES CONCIERGE [facility] Work Phone: Start: 01-22-2015 End: 01-22-2015 Follow Up Appt 6 months Follow Up Appt 6 months [facility] Work Phone: Start: 01-22-2015 End: 01-26-2015 Lipid panel [AGGREGATE] *Lipid Profile CC PCP [facility] Work Phone: Start: 04-29-2014 End: 01-26-2015 *Hepatic Function Panel *Hepatic Function Panel [facility] Work Phone: Start: 04-29-2014 End: 01-26-2015 Lipid panel [AGGREGATE] *Lipid Profile CC PCP [facility] Work Phone: Start: 04-23-2014 End: 04-23-2014 ACTIVITIES CONCIERGE ACTIVITIES CONCIERGE [facility] Work Phone: Start: 04-23-2014 End: 04-23-2014 Follow Up Appt 6 months Follow Up Appt 6 months [facility] Work Phone: Start: 04-23-2014 End: 04-23-2014 Nuclear stress test -exercise Nuclear stress test -exercise [facility] Work Phone: Start: 12-18-2013 End: 04-06-2014 *Hepatic Function Panel *Hepatic Function Panel [facility] Work Phone: Start: 12-18-2013 End: 12-18-2013 ACTIVITIES CONCIERGE ACTIVITIES CONCIERGE [facility] Work Phone: Start: 12-18-2013 End: 12-18-2013 Follow Up Appt 4 months Follow Up Appt 4 months [facility] Work Phone: Start: 12-18-2013 End: 04-06-2014 Lipid panel [AGGREGATE] *Lipid Profile CC PCP [employer] [facility] Work Phone: Start: 11-20-2013 End: 04-06-2014 *BMP *BMP [employer] Work Phone: Start: 11-20-2013 End: 04-06-2014 DJN DJN [facility] Work Phone: Start: 11-10-2013 End: 11-10-2013 Nuclear stress test -exercise Nuclear stress test -exercise [employer] [facility] Work Phone: Start: 11-04-2013 End: 11-04-2013 *BMP *BMP [employer] Work Phone: Start: 11-04-2013 End: 11-06-2013 *Hepatic Function Panel *Hepatic Function Panel [employer] Work Phone: Start: 11-04-2013 End: 11-04-2013 CBC W Auto Differential panel - Blood *CBC without Diff [employer] [facility] Work Phone: Start: 11-04-2013 End: 11-07-2013 Chest x-ray X-Ray, Chest, PA & Lateral [employer] [facility] Work Phone: Start: 11-04-2013 End: 11-04-2013 Coagulation factor induced.INR assay in platelet poor plasma *PT/INR [employer] [facility] Work Phone: Start: 11-04-2013 End: 11-04-2013 ACTIVITIES CONCIERGE ACTIVITIES CONCIERGE [employer] [facility] Work Phone: Start: 11-04-2013 End: 11-04-2013 Electrocardiogram, complete EKG (In office) [facility] Work Phone: Start: 11-04-2013 End: 11-04-2013 Follow Up Appt 6 months Follow Up Appt 6 months [employer] [employer] Work Phone: Start: 11-04-2013 End: 11-04-2013 Left Heart Cath Left Heart Cath [employer] [facility] Work Phone: Start: 11-04-2013 End: 11-06-2013 Lipid panel [AGGREGATE] *Lipid Profile CC PCP [facility] Work Phone: Start: 12-28-2012 End: 02-07-2013 *Hepatic Function Panel *Hepatic Function Panel [facility] Work Phone: Start: 12-28-2012 End: 02-07-2013 Lipid panel [AGGREGATE] *Lipid Profile [facility] Work Phone: Start: 10-02-2012 End: 10-02-2012 ACTIVITIES CONCIERGE ACTIVITIES CONCIERGE [facility] Work Phone: Start: 10-02-2012 End: 10-02-2012 Electrocardiogram, complete EKG (In office) [facility] Work Phone: Start: 10-02-2012 End: 10-02-2012 Follow Up Appt Other Follow Up Appt Other [facility] Work Phone: Start: 08-01-2011 End: 01-17-2012 Electrocardiogram, complete EKG (In office) [facility] Work Phone: Start: 08-01-2011 End: 08-01-2011 Follow Up Appt 1 year Follow Up Appt 1 year [facility] Work Phone: Start: 1963 Annual PCP Team Vamp Creaser carine Disease Visit Annual PCP Team Chronic Disease Visit [facility] Start: 1963 Anxiety Screening Anxiety Screening [facility] Start: 1963 BP Controlled (<130/80) BP Controlle d (<130/80) [facility] Start: 1963 Depression Screening Depression Scre ening [facility] 24 Hour ECG [facility] Max OCCLUSAL GUARD H VANDANA APPLIANCE, FULL ARCH Max OCCLUSAL GUARD HARD APPLIANCE, FULL ARCH Dental Routine 1 Occurrences starting 11/14/2024 [facility] Work Phone: Comment on above: 1 Occurrences starti ng 11/14/2024 PANORAMIC RADIOGRAPH IC IMAGE PANORAMIC RADIOGRAPHIC IMAGE [facility] Routine 1 Occurrences starting 11/14/2024 [facility] Comment on above: 1 Occurrences starti ng 11/14/2024 Patient Education [facility] Work Phone: Patient referral [facility] Work Phone: RE-EVALUATION - LIMITED, PROBLEM FOCUSED (ESTABLISHED PATIENT; NOT POST-OPERATIVE VISIT) RE-EVALUATION - LIMITED, PROBLEM FOCUSED (ESTABLISHED PATIENT; NOT POST-OPERATIVE VISIT) Dental Routine 1 Occurrences starting 11/14/2024 [facility] Comment on above: 1 Occurrences starti ng 11/14/2024 SPLINT FOLLOW UP SPLINT FOLLOW U P Dental Routine 1 Occurrences starting 11/14/2024 [facility] Comment on above: 1 Occurrences starti ng 11/14/2024 UNSPECIFIED ADJUNCTI VE PROCEDURE, BY REPORT UNSPECIFIED ADJUNCTIVE PROCEDURE, BY REPORT Dental Routine 1 Occurrences starting 11/14/2024 [facility] Comment on above: 1 Occurrences starti ng 11/14/2024 Immunizations Immunization Date Immunization Notes Care Provider [facility] 10-13-2020 Covtonja (Moderna) Dr. Moiz murphy Work Phone: [facility] 09-15-2020 Donovan (Moderna) Dr. Moiz murphy Work Phone: [facility] 05-08-2017 influenza, high dose seasonal, preservative-free Kylah Dimas DDS Work Phone: [facility] 06-16-2016 influenza, high dose seasonal, preservative-free Kylah Judie DDS Work Phone: [facility] 04-11-2016 tetanus toxoid, redu frank diphtheria toxoid, and acellular pertussis vaccine, adsorbed Kylah Dimas DDS Work Phone: [facility] 04-11-2016 typhoid vaccine, parenteral, other than acetone-killed, dried Kylah Dimas DDS Work Phone: [facility] 10-25-2015 pneumococcal conjuga te vaccine, 13 valent Kylah Dimas DDS Work Phone: [facility] 06-18-2015 influenza, high dose seasonal, preservative-free Kylah Judie DDS Work Phone: [facility] 05-07-2014 influenza, seasonal, injectable Kylah Judie DDS Work Phone: [facility] Work Phone: 07-08-2012 influenza virus vacc ine, unspecified formulation Kylah Dimas DDS Work Phone: [facility] Work Phone: 02-14-2012 pneumococcal polysaccharide vaccine, 23 valent Kylah Dimas DDS Work Phone: [facility] Work Phone: 06-28-2011 influenza virus vacc ine, unspecified formulation Kylah Dimas DDS Work Phone: [facility] 02-18-2010 hepatitis A and hepatitis B vaccine Kylah Dimas DDS Work Phone: [facility] 08-06-2009 hepatitis A and hepatitis B vaccine Kylah Dimas DDS Work Phone: [facility] 07-07-2009 hepatitis A and hepatitis B vaccine Kylah Dimas DDS Work Phone: [facility] 07-07-2009 typhoid vaccine, unspecified formulation Kylah Dimas DDS Work Phone: [facility] 05-20-2009 influenza virus vacc ine, unspecified formulation Kylah Dimas DDS Work Phone: [facility] Work Phone: 05-10-2009 zoster vaccine, live Kylah hagan DDS Work Phone: [facility] 06-05-2008 influenza virus vacc ine, unspecified formulation Kylah Dimas DDS Work Phone: [facility] 11-28-2007 tetanus and diphther ia toxoids, adsorbed, preservative free, for adult use (2 Lf of tetanus toxoid and 2 Lf of diphtheria toxoid) Kylah Dimas DDS Work Phone: [facility] 07-04-2005 influenza virus vacc ine, unspecified formulation Kylah Dimas DDS Work Phone: [facility] Work Phone: 12-28-1986 Meningococcal, MCV4, unspecified conjugate formulation(groups A, C, Y and W-135) Kylah Dimas DDS Work Phone: [facility] 12-28-1986 tetanus and diphther ia toxoids, not adsorbed, for adult use Kylah Dimas DDS Work Phone: [facility] Work Phone: 12-28-1986 trivalent poliovirus vaccine, live, oral Kylah Dimas DDS Work Phone: [facility] 12-28-1986 typhoid vaccine, unspecified formulation Kylah Dimas DDS Work Phone: [facility] Payers Date Payer Category Payer Self-pay [id number] 2015 Private Health Insurance [facility] AARP SUPPLEMENT [id number] 2015-Present [phone] [address] [place] [address] Indemnity [id number] 2015 Unknown [id number] 2010 Medicare MEDICARE MEDICAR E A AND B [id number] 2010-Present [phone] [place] [address] Medicare [id number] 2010 Medicare [id number] Unknown [id number] Unknown [id number] Unknown [id number] Unknown [id number] Unknown [id number] Unknown [id number] Unknown [id number] Unknown [id number] Unknown [id number] Unknown [id number] Social History Date Type Detail Facility Start: 08-09-2021 End: 10-11-2023 Tobacco smoking status [facility] Unknown if ever smoked [facility] Start: 10-12-2020 None [facility] Start: 10-12-2020 Spouse/ Signif icant Other [facility] Start: 10-12-2020 Non-smoker [facility] Start: 1945 Sex Assigned At Male [facility] Start: 01-16-2011 End: 10-11-2023 Tobacco smoking status WAIS Never smoked tobacco [facility] Start: 01-16-2011 Tobacco use and exposure Smokeless tobacco non-user [facility] Start: 03-15-2022 Alcoholic beverage intake Current drinker of alcohol (finding) [facility] Start: 03-15-2022 End: 06-11-2024 History of Social function [facility] Start: 03-15-2022 End: 02-18-2025 Tobacco use panel [facility] Work Phone: National Score (1-10 0), lower number is lower risk 66 [facility] Start: 04-12-2020 Gender identity Identifies as male gender (finding) [facility] Start: 04-18-2020 Sexual orientation Heterosexual (fin ding) [facility] Medical Equipment Procedure Code Equipment Code [...] 03/07/2015 11:50 AM Ariadne Villegas MA No [facility] 03-07-2015 Are you blind, or do you have serious difficulty seeing, even when wearing glasses No 03/07/2015 11:50 AM Ariadne Villegas MA No [facility] 03-07-2015 Do you have serious difficulty walking or climbing stairs No 03/07/2015 11:50 AM Ariadne Villegas MA No [facility] 03-07-2015 Do you have difficul ty dressing or bathing No 03/07/2015 11:50 AM Ariadne Villegas MA [facility] 03-07-2015 Because of a physica l, mental, or emotional condition, do you have difficulty doing errands alone such as visiting a physician's office or shopping No 03/07/2015 11:50 AM Ariadne Villegas MA [facility] Mental Status Date Assessment Result Facility 03-07-2015 Because of a physica l, mental, or emotional condition, do you have serious difficulty concentrating, remembering, or making decisions No 03/07/2015 11:50 AM Ariadne Villegas MA No [facility] Clinical Notes 12-05-2013 to 11-14-2024 Kylah Dimas, DDS - 11/14/2024 12:28 PM EDTTelephone Encounter - Sue Nava - 06/25/2024 1:24 PM ESTTelephone Encounter - Sue Nava - 06/25/2024 1:24 PM EST Note Date & Type Note Facility 11-14-2024 Note HNO ID: [id number] Author: KYLAH DIMAS DDS Service: ? Author Type: Dentist Type: Progress Notes Filed: 11/14/2024 15:03 Note Text: [facility], Oral Surgery, AND Maxillofacial Prosthetics Date: [...] restriction Right rotat (more content not included)... [facility] 11-14-2024 History of Presen t illness Narrative [facility], Oral Surgery, & Maxillofacial Prosthetics Date: [...] I molar relationship with anterior contact in KS end to end except #11- moderate lower anterior wear on #23,24,25,26 Load testing was positive for left masseter pain pain-duplicated area of trp. Centric relation was verified today with the initial contact coincidental with [place]. There are working and non-working posterior interferences [...] [place] TREATMENT RECOMMENDATIONS: Discussed stabilization occlusal guard (night club manager) for nocturnal bruxism and dental attrition as [...] Kylah Dimas DDS documented in this encounter [facility] 06-25-2024 Telephone encount er Note June 25, 2024 Dear Messi Villa, Thank you for your request. Please call to confirm cancellation request, next availability for reschedule is possibly and not guaranteed NOVEMBER/2024 Please call [phone] Thank you for choosing [facility] for your healthcare. Sincerely, Your Care Team [facility] 06-25-2024 Miscellaneous Notes Formattin g of this note might be different from the original. June 25, 2024 Dear Messi Villa, Thank you for your request. Please call to confirm cancellation request, next availability for reschedule is possibly and not guaranteed NOVEMBER/2024 Please call [phone] Thank you for choosing [facility] for your healthcare. Sincerely, Your Care Team documented in this encounter [facility] 06-11-2024 Nurse Note NURSE POST PROCEDURE [...] Factors Were Barriers To This Education Session: Restorationist Factors: No barriers The Following Physical Limitations [...] Visit completed when applicable. Conchita Annita, OCCA [facility] 06-11-2024 Nurse Note NURSE POST PROCEDURE [...] Factors Were Barriers To This Education Session: Restorationist Factors: No barriers The Following Physical Limitations [...] of Care Visit completed when applicable. FANNIE Jacbos PRE CYSTO PROCEDURE ID Verified by: FANNIE [...] FANNIE Lucas Rn documented in this encounter [facility] 06-11-2024 Nurse Note PRE CYSTO PROCEDURE [...] Jose De Jesus% Lidocaine FANNIE Lucas Rn [facility] 06-11-2024 Note HNO ID: [id number] Author: ANNETTA KRAUSE MD Service: ? Author [...] which included preparing to see the patient, [id number] patient care, completing clinical documentation, performing a medically appropriate examination, counseling and educating the patient/family/caregiver, ordering medications, tests, or procedures, independently interpreting results (not separately reported), communicating results to the patient/family/caregiver and care coordination (not separately reported). Annetta Krause MD [facility] 06-11-2024 History of Presen t illness Narrative [...] which included preparing to see the patient, [id number] patient care, completing clinical documentation, performing a medically appropriate examination, counseling and educating the patient/family/caregiver, ordering medications, tests, or procedures, independently interpreting results (not separately reported), communicating results to the patient/family/caregiver and care coordination (not separately reported). Annetta Krause MD documented in this encounter [facility] 11-16-2023 Discharge summary Note Date/Time November 16, 2023 10:52am [facility] [address] [place] [address]. [address] [place] [address] / REHABILITATION SERVICES DISCHARGE SUMMARY MR#: [id number] Acct: [id number] Name: MESSI VILLA Rep #: [id number] : 1945 78 From: Zulema Clinton PT, Cert. MDT Referring Dr.: Dr. Misael Conti MD Status: REG RCR Insurance: MEDICARE PART A B [facility] Discharge Summary D/C summary: It has been [...] please feel free to call me at [phone]. Thank you for the referral of thispatient. Sincerely, Zulema Clinton, PT, Cert MDT Balance/Gait/Functional tests Balance/Special Test Scores Quick DASH Score: 5.0000 Improvement % Improvement: 95 <Electronically signed by Zulema Clinton PT, Cert. MDT> 11/16/23 1052 CC: Dr. Misael Conti MD; Dr. Moiz Mueller MD ~ [place] Signed [facility] Work Phone: 1(380) 270-560205-09-2014 Evaluation note* Diagnosis Onset Date Resolution Status Atherosclerotic heart diseas e of [place] coronary artery without angina pectoris chronic Essential (primary) hypertension chronic Hyperlipidemia chronic History of coronary artery stent placement December 05 14 resolved [facility] Work Phone: 1(674) 713-790705-09-2014 Evaluation note* Diagnosis Onset Date Resolution Status Dizziness acute Essential (primary) hypertension chronic Hyperlipidemia chronic History of coronary artery stent placement December 05 14 resolved [facility] Work Phone: 1(642) 437-974805-09-2014 Evaluation note* Diagnosis Onset Date Resolution Status Essential (primary) hypertension chronic Hyperlipidemia chronic History of coronary artery stent placement December 05 14 resolved [facility] Work Phone: 1(753) 230-552805-09-2014 Evaluation note* Diagnosis Onset Date Resolution Status Bradycardia acute Essential (primary) hypertension chronic Hyperlipidemia chronic History of coronary artery stent placement May 9th, 20 14 resolved Bradycardia acute Essential (primary) hypertension chronic Hyperlipidemia chronic History of coronary artery stent placement December 05 14 resolved [facility] Work Phone: 1([phone]) 904-897805-09-2014 Evaluation note* Diagnosis Onset Date Resolution Status Bradycardia acute Essential (primary) hypertension chronic Hyperlipidemia chronic History of coronary artery stent placement December 05 14 resolved [facility] Work Phone: Evaluation noteNo assessment information available [facility] Work Phone: Evaluation note* Diagnosis Routine [...] of urinary stream documented in this encounter [facility] Diagnosis Routine medical exam- Primary Routine [...] and myositis, unspecified documented in this encounter [facility] Discharge instructions Additional Instructions Thank you for [...] care physician for further outpatient evaluation and management.[facility] Work Phone: Reason for referral (narrative)No reason for referral information [facility] Work Phone: Reason for visit Narrative* Financial Clearance (Routine) - Closed Specialty Diagnoses / Procedures Referred By Contac t Referred To Contact Dentistry / DENTISTRY Diagnoses TMJ Consult no NG/ Will send pano Procedures TMJ CONSULT Self Kylah Dimas, DDS [address] [facility] [place] [address] Phone: tel: fax: Referral ID Status Reason Start Date Expiration Date V isits Requested Visits Authorized [id number] Closed Financial Clearance Required - Self Pay OON/Self Pay Override Dental - Patient Cleared required payment collected 10/29/2024 01/27/2025 1 1 [facility] Chief Complaint and Reason for Visit Chief Complaint 7 M FU ([facility] FROM [facility]) Reason for Visit Atherosclerotic hear t disease of [place] coronary artery without angina pectoris Essential (primary) [...] No October 12, 2020 5:13am Power of Director Of Cardiology Yes October 12 5:13am Advance Directive Response Recorded Date/ Time Living Will No October 12, 2020 4:13am Power of Director Of Cardiology Yes October 12 4:13am Documents on File Type Date Recorded Patient Supervisor Winding Department Expl anation Advance Directive(s) 02/28/2011 8:53 PM Documents on File Type Date Recorded 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 Moiz Mueller MD Primary Care Provider Active Carlos Alberto ELIZABETH PA-C Attending Provider, Referring Pr ovider Active Team Status: Inactive Member Role Status Dates Dr. Moiz Mueller MD Primary Care Provider Active Tila Caldwell GAS COMPRESSOR TURBINE OPERATOR, GAS COMPRESSOR TURBINE OPERATOR-C Attending Provider, Referring P marcelina Active Team Status: Active Member Role Status Dates Dr. Moiz Mueller MD Primary Care Provider Active Tila Caldwell GAS COMPRESSOR TURBINE OPERATOR, GAS COMPRESSOR TURBINE OPERATOR-C Attending Provider Active Team Status: Active Member [...] Pike DO Attending Provider, Scott hewitt Active Building Services Coordinator Relationship Specialty Start Date End Date Moiz Mueller MD [address] [facility] [address] [place] [address] PCP - General Family Medicine 12/13/17 Building Services Coordinator Relationship Specialty Start Date End Date Moiz Mueller MD [address] [facility] [facility] [address] [place] [address] PCP - General Family Medicine 12/13/17 Building Services Coordinator Relationship Specialty Start Date End Date Moiz Mueller MD [address] [facility] [address] [place] [address] PCP - General Family Medicine 12/13/17 Team [...] or prosecute any alcohol or drug abuse patient.[facility] the event this information is protected by the Federal Confidentiality of Alcohol and Drug Abuse Patient Records regulations: The Federal rules restrict any use of the information to criminally investigate or prosecute any alcohol or drug abuse patient.[facility] System[facility] the event this information is protected by the Federal Confidentiality of Alcohol and Drug Abuse Patient Records regulations: The Federal rules restrict any use of the information to criminally investigate or prosecute any alcohol or drug abuse patient.[facility] Reason for Visit (unrecogniz ed section and content) Reason Comments Appointment Reason Comments Cystoscopy-1 (unrecognized sect ion and content) No Status Records FoundNo Status Records FoundNo Status Records Found INFORMATION SOURCE (unrecogn ized section and content) DATE CREATED AUTHOR 12/03/2024 [facility] DATE CREATED AUTHOR AUTHOR'S ORGANIZ ATION 04/21/2025 [facility] DATE CREATED AUTHOR AUTHOR'S ORGANIZ ATION 05/02/2025 [facility] FOR RECORDS PERTAINING TO PATIENTS WHO [...] BE BASED ON THE PRIMARY CLINICAL RECORDS. [employer] provides no warranty or guarantee of the accuracy or completeness of information in this document.
[2025-05-04 07:28] LABS: Hematocrit 43.1 % (40-54); Hemoglobin 14.7 g/dL (13.0-16.5); Immature Granulocytes Count 0.030 X10^3/uL (0.0-0.0); Mean Corp Hgb Conc 34.1 g/dL (32-36); Mean Corpuscular Volume 94.5 fL (80-94); Mean Platelet Vol. 9.8 fl (6.2-12.0); NRBC Flagged by Analyzer 0 % (0-5); Platelet Count 264 K/mm3 (150-450); RBC Distribution Width CV 13.2 % (11.6-14.6); RBC Distribution Width SD 45.2 fl (35.1-43.9); Red Blood Count 4.56 M/mm3 (4.6-6.2); White Blood Count 7.9 K/mm3 (4.4-11.0)
[2025-05-04 08:27] LABS: AST(SGOT) 24 U/L (<=37); Alanine Aminotransfer ALT/SGPT 18 U/L (<=46); Albumin, Serum 4.1 g/dL (3.4-4.8); Alkaline Phosphatase 88 U/L (40-129); Anion Gap 11 (5-15); BUN 22 mg/dL (4-19); BUN/Creat Ratio 18.7 RATIO (10-20); Calcium,Total 9.5 mg/dL (7.6-11.0); Carbon Dioxide 27.0 mmol/L (21.0-32.0); Chloride 100 mmol/L (98-108); Cholesterol 150 mg/dL (<=200); Globulin 3.0 g/dL (2.2-4.2); Glucose 121 mg/dL (70-99); Low Density Lipoprotein Calc. 69 mg/dL; Potassium 3.7 mmol/L (3.3-5.1); Triglycerides 101 mg/dL; Very Low Density Lipoprotein 20 mg/dL (5-40); cholesterol:hdl ratio screen 2.48
== END | disposition home or self-care (01) ==
LOC: LAB 06:58
PROVIDERS: PCP Family Medicine; Referring Provider Family Medicine; Visit Provider Family Medicine
DX: I10 Essential (primary) hypertension (principal); R73.02 Impaired glucose tolerance (oral); E03.9 Hypothyroidism, unspecified; E78.5 Hyperlipidemia, unspecified
CPT/HCPCS: 36415; 80053; 80061; 83036; 84439; 84443; 85025